=== PATIENT | male | born 1950 | race Caucasian/White ===

== ENCOUNTER → 2017-05-04 | Outpatient (CLI) | payer OTHER, BC ==
[~2017-05-04] MED LIST: AMOX1TAB43 PO; ASCO100061 PO; ASPEC81 PO; ASPI1TAB2 PO; B-COTAB18 PO; CEFA500C2 PO; CLIN150C PO; CLIN1CAP51 PO; CLOP1TAB5 PO; COEN1CAP17 PO; FURO40TA3 PO; GLIP-199 PO; LISI2.5T5 PO; LOSA1TAB PO; METO25TA56 PO; NITR0.4S UT; NTRGSL/4 UT; SPIR25TA PO; SULF-183 PO
== END | disposition home or self-care (01) ==
LOC: C.LABSPEC 16:52
PROVIDERS: ATTEND Podiatrist Foot & Ankle Surgery
DX: L97.519 Non-pressure chronic ulcer of other part of right foot with unspecified severity (principal)

== ENCOUNTER 2017-07-20 10:47 | Inpatient (IN) | payer OTHER, BC ==
[~2017-07-20] VITALS: Ht 172.7 cm; Wt 82.8 kg
[~2017-07-20 10:47] MED LIST changes: -AMOX1TAB43 PO; -ASCO100061 PO; -ASPEC81 PO; -B-COTAB18 PO; -CEFA500C2 PO; -CLIN150C PO; -CLIN1CAP51 PO; -COEN1CAP17 PO; -LOSA1TAB PO; -NITR0.4S UT; -NTRGSL/4 UT
[2017-07-20] MEDS ORDERED: SODIUM CHLORIDE 0.9% 500ML 500 ML IV STA (11:04)
[2017-07-20] MEDS ORDERED: FAMOTIDINE IV INJ 40 MG in DEXTROSE 5% 100ML 100 ML IV STA (11:04)
[2017-07-20] MEDS ORDERED: AMOX1TAB43 PO (11:22)
[2017-07-20] MEDS ORDERED: ONDANSETRON INJ 2 MG/ML 2 ML VIAL ONE (11:28)
[2017-07-20] MEDS ORDERED: ONDANSETRON INJ 2 MG/ML 2 ML VIAL IV STA (11:36)
[2017-07-20 11:43] LABS: VEN BLD GAS O2 SATURATION 77.7 %; VEN BLOOD GAS BASE EXCESS 0.5 mEq/L
[2017-07-20] MEDS ORDERED: SODIUM CHLORIDE 0.9% 1000ML 1,000 ML IV STA (11:57)
[2017-07-20 12:02] LABS: MEAN CORPUSCULAR HGB CONC 35.1 g/dl (32-36)
[2017-07-20] MEDS ORDERED: NovoLIN-R INSULIN PER UNIT CHARGE SC STA (12:08)
[2017-07-20 12:14] LABS: HEMATOCRIT 48.4 % (42-52); MEAN CORPUSCULAR HEMOGLOBIN 30.9 pg (25-34); WHITE BLOOD COUNT 23.25 K/uL (4.8-10.8)
[2017-07-20 12:19] LABS: MEAN PLATELET VOLUME 12.1 fL (7.4-10.4); PLATELET COUNT 171 K/uL (130-400)
[2017-07-20] MEDS ORDERED: VANCOMYCIN INJ 1,500 MG in SODIUM CHLORIDE 0.9% 500ML 500 ML IV SCH (12:20)
[2017-07-20] MEDS ORDERED: METRONIDAZOLE 500MG / 100ML NSS IV STA (12:20)
[2017-07-20] MEDS ORDERED: CEFEPIME IV 1,000 MG in DEXTROSE 5% 100ML 100 ML IV STA (12:20)
[2017-07-20] MEDS ORDERED: VANCOMYCIN INJ 1,500 MG in SODIUM CHLORIDE 0.9% 250ML 250 ML IV STA (12:20)
[2017-07-20 12:23] LABS: POTASSIUM 4.6 mmol/L (3.5-5.1)
[2017-07-20 12:30] LABS: BETA-HYDROXYBUTYRATE 3.82 mg/dL (0.2-2.81)
[2017-07-20 12:32] LABS: CREATININE 1.6 mg/dl (0.60-1.40)
[2017-07-20 12:33] LABS: CALCIUM 9.3 mg/dl (8.5-10.1)
[2017-07-20 12:46] LABS: BASO % 0.1 %; BASO ABS # 0.02 K/uL (0-0.2); COMPLETE YES; EOS % 0.5 %; IG% 0.5 %; LYMPH % 7.8 %; LYMPH ABS # 1.82 K/uL (1.2-3.4); MONO % 6.4 %; NEUT % 84.7 %; PLT ESTIMATE NORMAL
[2017-07-20 13:33] LABS: URINE APPEARANCE CLEAR (CLEAR); URINE BILIRUBIN NEG (NEG); URINE COLOR YELLOW; URINE NITRITE NEG (NEG); URINE SPECIFIC GRAVITY 1.024 (1.000-1.030); UROBILINOGEN NEG (NEG); ZZUR CULT IF INDIC CLEAN CATCH NO
[2017-07-20 13:41] LABS: MANUAL MICROSCOPIC REQUIRED? NO; REVIEW REQ? NO
[2017-07-20] MEDS ORDERED: ASPIRIN 324 MG CHEW PO STA (13:43)
--- NOTE | 2017-07-20 13:46 | DIAGNOSTIC IMAGING REPORT ---
CHEST ONE VIEW PORTABLE CLINICAL HISTORY: Chest pain. Allergic reaction. COMPARISON STUDY: 06/02/2015 FINDINGS: There are postsurgical changes of midline sternotomy. The heart is mildly enlarged. There is no failure. There is no focal pulmonary consolidation. There are no pleural effusions.[ IMPRESSION: No active disease in the chest. Electronically signed by: Valentin Werner M.D. 07/20/2017 1:45 PM Dictated Date/Time: 07/20/2017 1:44 PM
--- NOTE | 2017-07-20 14:07 | EMERGENCY ROOM VISIT NOTE ---
History Report prepared by Farrah: Alonzo Jack Under the Supervision of: Dr. Jorge Tomas M.D. First contact with patient: 10:48 Stated Complaint: ALLERGIC REACTION History of Present Illness The patient is a 67 year old white male with a past medical history of HTN, CHF , diabetes, CABG who presents to the ED by EMS with a cc of a persistent allergic reaction beginning three hours ago. Positive lip swelling, vomiting, dizziness, and weakness. Negative LOC, leg swelling, nausea, SOB, or chest pain. Symptoms began after taking Amoxicillin for a right toe infection. Took Amoxicillin four hours ago. Has had similar reaction to Amoxicillin once in the past. Had some colored drainage from the right fifth toe yesterday. Source of History: patient Onset: three hours ago Quality: other (allergic reaction) Timing: other (persistent) Associated Symptoms: + vomiting, + weakness, No LOC, No chest pain, No SOB, No nausea Note: Positive: dizziness and lip swelling. Negative: Leg swelling. Review of Systems See HPI for pertinent positives and negatives. A total of ten systems were reviewed and were otherwise negative. Past Medical & Surgical Medical Problems: (1) Atrial Fibrillation (2) CHF (congestive heart failure) (3) Diab [place] Wo Compl, Type Ii Or Unspec Type, Not Uncntrld (4) Hyperlipidemia Nec/Nos (5) Hypertension Nos (6) Hypotensive shock (7) Old Myocardial Infarct Surgical Problems: (1) H/O heart bypass surgery Family History FH ischemic heart disease Social History Smoking Status: Former Smoker Alcohol Use: none Drug Use: none Marital Status: in relationship Housing Status: lives with family Occupation Status: employed Current/Historical Medications Scheduled Amoxicillin & Pot Clavulanate (Amoxicillin/Clavulanate P), 1 TAB PO BID Furosemide (Lasix), 1 TAB PO DAILY Glipizide (Glipizide Er), 1 TAB PO BID Lisinopril (Lisinopril), 1 TAB PO DAILY Metoprolol Tartrate (Lopressor) (Lopressor), 25 MG PO BID Allergies Coded Allergies: Amoxicillin (Verified Allergy, Severe, hives swelling redness lip swelling , 07/20/17) Iodinated Diagnostic Agents (Verified Allergy, Intermediate, HIVES, 07/20/17 ) Prednisone (Unverified Allergy, Intermediate, SHORTNESS OF BREATH, 07/20/17) as per patient Physical Exam Vital Signs Date Time Temp Pulse Resp B/P (MAP) Pulse Ox O2 Delivery O2 Flow Rate FiO2 07/20/17 15:31 37.2 76 20 138/73 97 Room Air 07/20/17 15:27 78 21 96 07/20/17 15:01 158/82 07/20/17 14:57 83 24 07/20/17 14:35 161/85 07/20/17 14:32 242/136 07/20/17 14:27 86 17 07/20/17 14:12 97 Room Air 07/20/17 13:52 78 10 07/20/17 13:31 185/90 07/20/17 13:22 72 17 07/20/17 13:21 36.8 07/20/17 13:18 78 07/20/17 13:17 75 23 07/20/17 13:01 169/77 07/20/17 12:55 177/80 07/20/17 12:47 92 21 07/20/17 12:40 149/86 07/20/17 12:17 73 8 07/20/17 12:16 172/86 07/20/17 11:47 75 15 07/20/17 11:41 150/76 07/20/17 11:40 34.8 76 20 150/76 97 Room Air 07/20/17 11:17 77 24 07/20/17 10:55 76 07/20/17 10:50 98 Room Air 07/20/17 10:50 76 18 131/73 99 Room Air 07/20/17 10:48 131/73 Physical Exam GENERAL: Awake, alert, well-appearing, NAD HENT: Normocephalic, atraumatic. Posterior oropharynx clear. No edema. Non- stridulous. EYES: Normal conjunctiva. Sclera non-icteric. NECK: Supple. No nuchal rigidity. FROM. RESPIRATORY: CTAB, no rhonchi, wheezing, crackles CARDIAC: RRR, no MRG ABDOMEN: Soft, NTND, BS+ MSK: No chest wall TTP, no LE edema. Four digits on the right foot, missing the third phalanx. Fifth toe has a dorsal warty appearance. Mild erythema that does not extend beyond the toe. No fluctuance, but mild induration. NEURO: GCS 15, CN 2-12 intact, moves all 4s on command SKIN: No jaundice noted. Blanched erythema over the back. No urticaria noted. Medical Decision & Procedures ER Provider Diagnostic Interpretation: X-ray: Per my interpretation, radiologist review. CHEST ONE VIEW PORTABLE FINDINGS: There are postsurgical changes of midline sternotomy. The heart is mildly enlarged. There is no failure. There is no focal pulmonary consolidation. There are no pleural effusions.[ IMPRESSION: No active disease in the chest. Electronically signed by: Valentin Werner M.D. Laboratory Results 07/20/17 11:17 Red Blood Count 5.50, Mean Corpuscular Volume 88.0, Mean Corpuscular Hemoglobin 30.9, Mean Corpuscular Hemoglobin Concent 35.1, Mean Platelet Volume 12.1, Neutrophils (%) (Auto) 84.7, Lymphocytes (%) (Auto) 7.8, Monocytes (%) (Auto) 6.4, Eosinophils (%) (Auto) 0.5, Basophils (%) (Auto) 0.1, Neutrophils # (Auto) 19.70, Lymphocytes # (Auto) 1.82, Monocytes # (Auto) 1.48, Eosinophils # (Auto) 0.12, Basophils # (Auto) 0.02 07/20/17 11:17 Test 07/20/17 11:17 07/20/17 11:38 07/20/17 12:12 07/20/17 13:05 White Blood Count 23.25 K/uL (4.8-10.8) Red Blood Count 5.50 M/uL (4.7-6.1) Hemoglobin 17.0 g/dL (14.0-18.0) Hematocrit 48.4 % (42-52) Mean Corpuscular Volume 88.0 fL (80-100) Mean Corpuscular Hemoglobin 30.9 pg (25-34) Mean Corpuscular Hemoglobin Concent 35.1 g/dl (32-36) Platelet Count 171 K/uL (130-400) Mean Platelet Volume 12.1 fL (7.4-10.4) Neutrophils (%) (Auto) 84.7 % Lymphocytes (%) (Auto) 7.8 % Monocytes (%) (Auto) 6.4 % Eosinophils (%) (Auto) 0.5 % Basophils (%) (Auto) 0.1 % Neutrophils # (Auto) 19.70 K/uL (1.4-6.5) Lymphocytes # (Auto) 1.82 K/uL (1.2-3.4) Monocytes # (Auto) 1.48 K/uL (0.11-0.59) Eosinophils # (Auto) 0.12 K/uL (0-0.5) Basophils # (Auto) 0.02 K/uL (0-0.2) RDW Standard Deviation 39.8 fL (36.4-46.3) RDW Coefficient of Variation 12.4 % (11.5-14.5) Immature Granulocyte % (Auto) 0.5 % Immature Granulocyte # (Auto) 0.11 K/uL (0.00-0.02) Platelet Estimate NORMAL Red Blood Cell Morphology Unremarkable Prothrombin Time 10.8 SECONDS (9.0-12.0) Prothromb Time International Ratio 1.0 (0.9-1.1) Venous Blood pH 7.39 (7.36-7.41) Venous Blood Partial Pressure CO2 43 mmHg (38.0-50.0) Venous Blood Partial Pressure O2 44 mmHg Venous Blood HCO3 26 mmol/L Venous Blood Oxygen Saturation 77.7 % Venous Blood Base Excess 0.5 mEq/L Anion Gap 8.0 mmol/L (3-11) Est Creatinine Clear Calc Drug Dose 47.6 ml/min Estimated GFR () 51.3 Estimated GFR (Non- 44.2 BUN/Creatinine Ratio 17.0 (10-20) Calcium Level 9.3 mg/dl (8.5-10.1) Total Bilirubin 0.5 mg/dl (0.2-1) Direct Bilirubin 0.2 mg/dl (0-0.2) Aspartate Amino Transf (AST/SGOT) 16 U/L (15-37) Alanine Aminotransferase (ALT/SGPT) 24 U/L (12-78) Alkaline Phosphatase 127 U/L (45-117) Troponin I 0.136 ng/ml (0-0.045) Total Protein 7.3 gm/dl (6.4-8.2) Albumin 3.5 gm/dl (3.4-5.0) Lipase 231 U/L (73-393) Beta-Hydroxybutyric Acid 3.82 mg/dL (0.2-2.81) Bedside Lactic Acid Venous 3.12 mmol/L (0.90-1.70) Bedside Troponin I 0.070 ng/ml (0-0.045) Urine Color YELLOW Urine Appearance CLEAR (CLEAR) Urine pH 5.0 (4.5-7.5) Urine Specific Palms 1.024 (1.000-1.030) Urine Protein NEG (NEG) Urine Glucose (UA) 3+ (NEG) Urine Ketones NEG (NEG) Urine Occult Blood NEG (NEG) Urine Nitrite NEG (NEG) Urine Bilirubin NEG (NEG) Urine Urobilinogen NEG (NEG) Urine Leukocyte Esterase NEG (NEG) Urine WBC (Auto) 1-5 /hpf (0-5) Urine RBC (Auto) 0-4 /hpf (0-4) Urine Hyaline Casts (Auto) 5-10 /lpf (0-5) Urine Epithelial Cells (Auto) 5-10 /lpf (0-5) Urine Bacteria (Auto) NEG (NEG) Influenza Type A Antigen Neg for Influ A (NEG) Influenza Type B Antigen Neg for Influ B (NEG) Test 07/20/17 14:46 Laboratory results reviewed by me Medications Administered Medications (Trade) Dose Ordered Sig/[place] Route Start Time Stop Time Status Last Admin Dose Admin Sodium Chloride 500 ml @ 500 mls/hr Q1H STAT IV 07/20/17 11:04 07/20/17 12:03 DC 07/20/17 11:44 500 MLS/HR Famotidine 40 mg/ Dextrose 104 ml @ 200 mls/hr ONE STAT IV 07/20/17 11:04 07/20/17 11:35 DC 07/20/17 11:44 200 MLS/HR Ondansetron HCl (Zofran Inj) 4 mg STK-MED ONCE .ROUTE 07/20/17 11:28 07/20/17 11:29 DC 07/20/17 11:43 4 MG Sodium Chloride 1,000 ml @ 999 mls/hr Q1H1M STAT IV 07/20/17 11:57 07/20/17 12:57 DC 07/20/17 11:57 999 MLS/HR Insulin Human Regular (novoLIN-R U-100 PER UNIT) 5 units NOW STAT SC 07/20/17 12:08 07/20/17 12:09 DC 07/20/17 12:14 5 UNITS Cefepime HCl 1000 mg/Dextrose 111.3 ml @ 200 mls/hr ONE STAT IV 07/20/17 12:20 07/20/17 12:53 DC 07/20/17 12:57 200 MLS/HR Metronidazole (Flagyl / Nss) 500 mg NOW STAT IV 07/20/17 12:20 07/20/17 12:23 DC 07/20/17 12:57 500 MG Vancomycin HCl 1500 mg/Sodium Chloride 530 ml @ 200 mls/hr TODAY@1220 IV 07/20/17 12:20 07/20/17 20:00 07/20/17 13:17 200 MLS/HR Aspirin (Aspirin Supp) 300 mg ONE STAT WA 07/20/17 15:34 07/20/17 15:35 DC 07/20/17 15:49 300 MG ECG Indication: weakness Rate (beats per minute): 79 Rhythm: normal sinus Findings: ST depression (leads V4-V6, 1 and AVL. ), other (Normal axis. LAD. ) Change: no significant change (from previous) ED Course 1055: The patient was evaluated in room C10. A complete history and physical exam was performed. 1104: Ordered Famotidine 40 mg/Dextrose 104 mL @ 200 mL/hr IV, Sodium Chloride 500 ml @ 500 mls/hr IV. 1136: Ordered Zofran Inj 4 mg IV. 1157: Ordered Sodium Chloride 1000 ml @ 999 mls/hr IV. 1208: Ordered Novolin-R U-100 per unit 530 mL @ 200 mL/hr IV, Flagyl / Sodium Chloride 500 mg IV, Cefepime HCl 1000 mg/Dextrose 111.3 mL @ 200 mL/hr IV. 1330: I reassessed the patient and performed a full body skin exam. No skin manifestations appreciated. The patient denies any chest pain or shortness of breath. 1343: Ordered Aspirin Chew 324 mg PO. 1348: Upon reexamination, the patient was resting comfortably. I discussed the test results and treatment plan with him. The patient will be evaluated for further management. Medical Decision The patient is a 67 year old white male with a past medical history of HTN, CHF , diabetes, CABG who presents to the ED by EMS with a cc of an allergic reaction beginning three hours ago. Differential diagnosis: Etiologies such as allergic reaction, anaphylaxis, urticaria, Meadows-Bladimir syndrome, toxic epidermal necrolysis, erythema multiforme, cellulitis, as well as others were entertained. Patient was seen and evaluated at the bedside. Upon further reassessment patient did have a temperature of 93 with an elevated lactate of 3. Patient thus had blood cultures and urine cultures. Patient also had a chest x-ray and a urine added. Patient had been given famotidine in addition to the Benadryl and Solu-Medrol from a possible allergic reaction. Patient did have a full skin exam show any other signs of infection patient did not have any evidence of scrotal abscess cellulitis or Ajay's gangrene. Patient's gas was fairly unremarkable. Patient did have an elevated glucose greater than 440 was given subcutaneous insulin as well as IV fluids. Patient did have a white count of 23 and empiric abx were initiated. Patient did have a mildly positive troponin , but patient did not have any chest pain or shortness of breath. Patient's EKG did show chronic ischemic changes but nothing acute. Patient did have mild DANIEL. I spoke with the cardiology service who stated, may trend enzymes, but will not actively treat for ACS given the lack of symptoms. I inquired about have an MVR but he denies this. I spoke with the medicine team who agreed to admit the patient. Medication Reconcilliation Current Medication List: was personally reviewed by me Blood Pressure Screening Patient's blood pressure: Elevated blood pressure Blood pressure disposition: Referred to PCP Consults Time Called: 1337 Consulting Physician: Dr. Miller -Cardiology Returned Call: 1341 Discussed the patient's case. Dr. Miller does no feel that there is any need for acute intervention. Additional Consults: Time Called: 1340 Consulted Physician: Dr. [place] -[facility] [place] Returned Call: [phone] Additional Comments: Discussed the patient's case. The patient will be evaluated for further treatment and disposition. Impression Primary Impression: Elevated troponin Additional Impressions: Leukocytosis Sepsis DANIEL (acute kidney injury) Dehydration Critical Care I have personally spent greater than 54 minutes of critical care time in the direct management of this patient. This includes bedside care, interpretation of diagnostic studies, and testing, discussion with consultants, patient, and family members, and other required patient management activities. This [] minutes is in excess of all separately billable procedures. Scribe Attestation The scribe's documentation has been prepared under my direction and personally reviewed by me in its entirety. I confirm that the note above accurately reflects all work, treatment, procedures, and medical decision making performed by me. Departure Information Dispostion Being Evaluated By Hospitalist Referrals No Doctor, Assigned (PCP) Problem Qualifiers Additional Impressions: Leukocytosis Leukocytosis type: eosinophilia Qualified Codes: D72.1 - Eosinophilia Sepsis Sepsis type: sepsis due to unspecified organism Qualified Codes: A41.9 - Sepsis, unspecified organism
[2017-07-20 14:12] VITALS: O2SAT 97; Ht 172.7 cm; Wt 82.8 kg
[2017-07-20] MEDS ORDERED: HydrALAZINE HCL 20 MG/ML VIAL IV. PRN (15:00)
[2017-07-20] MEDS ORDERED: POLYETHYLENE (MIRALAX) 17 GM PACK PO PRN (15:00)
[2017-07-20] MEDS ORDERED: ONDANSETRON INJ 2 MG/ML 2 ML VIAL IV PRN (15:00)
[2017-07-20] MEDS ORDERED: ACETAMINOPHEN 325 MG TAB PO PRN (15:00)
--- NOTE | 2017-07-20 15:27 | History and Physical ---
History & Physical Date & Time of Service: Jul 20, 2017 at 14:56 Chief Complaint: Allergic Reaction Primary Care Physician: Aissatou Chin M.D. History of Present Illness Source: patient This is a 67 yo M with PMHx of hypertension, hyperlipidemia, paroxysmal a fib, ischemic cardiomyopathy with EF equal to 25-29% most recent echocardiogram being October 2015, DM II uncontrolled, hyperthyroidism, diabetic retinopathy, who presents to the ER today after acutely becoming weak with nausea and vomiting this morning around 9 AM. The patient reports last evening he ate dinner which was consistent of leftovers which were quite old and had some stomach discomfort. He then noticed his right pinky toe had a scab over top of the which he removed, and a "good" amount of pus came out of this lesion. The patient had possible gangrene of a toe approximately one year ago for which he was prescribed Augmentin for a 10 day course. He only took 5 days of this course, and initially had some hives but reports "working through it"; therefore had leftover antibiotic in his house. This morning, he took 1 tablet of Augmentin 875 mg to prevent possible toe infection along with other morning meds. At approximately 9 AM, he noticed increased nausea had multiple episodes of vomiting clear bilious liquid while sitting on his front porch. He became acutely weak and felt as if he was going to pass out. He denies any coffee- ground emesis or red streaking of vomiting at that time. EMS was called by a man working on a new barn nearby his home. Of note the patient takes only metoprolol 25 mg BID, lisinopril 2.5 mg daily, and furosemide 40 mg daily. He has not taken Plavix or baby aspirin for at least one year, despite recommendations in Dr. Miller's notes. Here in the ER the patient was found to have a lactic acid of 3.12, elevated WBC of 23K, elevated troponin=0.136, and glucose >400 with ketones of 3.82. BCx have been sent. CXr appears clear. He is s/p 1.5L bolus of NSS. Pt was initially hypothermic and has a bear hugger in place. Past Medical/Surgical History Medical Problems: (1) Atrial Fibrillation Status: Resolved (3) Diab [place] Compl, Type Ii Or Unspec Type, Not Uncntrld Status: Chronic (4) Hyperlipidemia Nec/Nos Status: Chronic (5) Hypertension Nos Status: Chronic (6) Old Myocardial Infarct Status: Resolved Hyperthyroidism Diabetic Retinopathy Ischemic Cardiomyopathy Severe mitral regurg Surgical Problems: (1) H/O heart bypass surgery Status: Resolved Bladder surgery Tonsillectomy Family History FH ischemic heart disease Social History Smoking Status: Former Smoker Alcohol Use: none Drug Use: none Marital Status: in relationship Housing status: lives alone Occupational Status: employed Immunizations History of Influenza Vaccine: No History of Tetanus Vaccine?: No History of Pneumococcal: No History of Hepatitis B Vaccine: No Multi-Drug Resistant Organisms History of MDRO: No Allergies Coded Allergies: Amoxicillin (Verified Allergy, Severe, hives swelling redness lip swelling , 07/20/17) Iodinated Diagnostic Agents (Verified Allergy, Intermediate, HIVES, 07/20/17 ) Prednisone (Unverified Allergy, Intermediate, SHORTNESS OF BREATH, 07/20/17) as per patient Home Medications Scheduled Amoxicillin & Pot Clavulanate (Amoxicillin/Clavulanate P), 1 TAB PO BID Furosemide (Lasix), 1 TAB PO DAILY Glipizide (Glipizide Er), 1 TAB PO BID Lisinopril (Lisinopril), 1 TAB PO DAILY Metoprolol Tartrate (Lopressor) (Lopressor), 25 MG PO BID Review of Systems Constitutional: No fever, No chills, No sweats, No fatigue Eyes: No redness, No discharge, No diplopia ENT: No trouble swallowing Respiratory: No cough, No shortness of breath, No dyspnea on exertion Cardiovascular: No chest pain, No edema, No palpitations Abdomen: + pain, + nausea, + vomiting (multiple episodes, last with bright red blood), + diarrhea (yesterday ) Musculoskeletal: No joint pain, No swelling, No calf pain Neurologic: No numbness/tingling Endocrine: No fatigue Integumentary: No rash, No itch Physical Exam Vital Signs Date Time Temp Pulse Resp B/P (MAP) Pulse Ox O2 Delivery O2 Flow Rate FiO2 07/20/17 14:12 97 Room Air 07/20/17 13:52 78 10 07/20/17 13:31 185/90 07/20/17 13:22 72 17 07/20/17 13:21 36.8 07/20/17 13:18 78 07/20/17 13:17 75 23 07/20/17 13:01 169/77 07/20/17 12:55 177/80 07/20/17 12:47 92 21 07/20/17 12:40 149/86 07/20/17 12:17 73 8 07/20/17 12:16 172/86 07/20/17 11:47 75 15 07/20/17 11:41 150/76 07/20/17 11:40 34.8 76 20 150/76 97 Room Air 07/20/17 11:17 77 24 07/20/17 10:55 76 07/20/17 10:50 98 Room Air 07/20/17 10:50 76 18 131/73 99 Room Air 07/20/17 10:48 131/73 General Appearance: WD/WN, no apparent distress, + obese Head: normocephalic, atraumatic Eyes: PERRL, EOMI ENT: hearing grossly normal, pharynx normal Neck: supple, no JVD Respiratory/Chest: lungs clear, no respiratory distress, no accessory muscle use Cardiovascular: regular rate, rhythm, + systolic murmur (LSB 2nd ICS) Abdomen/GI: normal bowel sounds, non tender, soft Back: normal inspection Extremities/Musculoskelatal: + pertinent finding (R pinky toe without edema, very minimal erythema over DIP. Nonfluctuant. No warmth) Neurologic/Psych: alert, normal mood/affect, oriented x 3 Skin: normal color, warm/dry Diagnostics Laboratory Results Results Past 24 Hours Test 07/20/17 11:17 07/20/17 11:38 07/20/17 12:12 07/20/17 13:05 Range/Units White Blood Count 23.25 4.8-10.8 K/uL Red Blood Count 5.50 4.7-6.1 M/uL Hemoglobin 17.0 14.0-18.0 g/dL Hematocrit 48.4 42-52 % Mean Corpuscular Volume 88.0 80-100 fL Mean Corpuscular Hemoglobin 30.9 25-34 pg Mean Corpuscular Hemoglobin Concent 35.1 32-36 g/dl Platelet Count 171 130-400 K/uL Mean Platelet Volume 12.1 7.4-10.4 fL Neutrophils (%) (Auto) 84.7 % Lymphocytes (%) (Auto) 7.8 % Monocytes (%) (Auto) 6.4 % Eosinophils (%) (Auto) 0.5 % Basophils (%) (Auto) 0.1 % Neutrophils # (Auto) 19.70 1.4-6.5 K/uL Lymphocytes # (Auto) 1.82 1.2-3.4 K/uL Monocytes # (Auto) 1.48 0.11-0.59 K/uL Eosinophils # (Auto) 0.12 0-0.5 K/uL Basophils # (Auto) 0.02 0-0.2 K/uL RDW Standard Deviation 39.8 36.4-46.3 fL RDW Coefficient of Variation 12.4 11.5-14.5 % Immature Granulocyte % (Auto) 0.5 % Immature Granulocyte # (Auto) 0.11 0.00-0.02 K/uL Platelet Estimate NORMAL Red Blood Cell Morphology Unremarkable Venous Blood pH 7.39 7.36-7.41 Venous Blood Partial Pressure CO2 43 38.0-50.0 mmHg Venous Blood Partial Pressure O2 44 mmHg Venous Blood HCO3 26 mmol/L Venous Blood Oxygen Saturation 77.7 % Venous Blood Base Excess 0.5 mEq/L Sodium Level 135 136-145 mmol/L Potassium Level 4.6 3.5-5.1 mmol/L Chloride Level 100 98-107 mmol/L Carbon Dioxide Level 27 21-32 mmol/L Anion Gap 8.0 3-11 mmol/L Blood Urea Nitrogen 27 7-18 mg/dl Creatinine 1.60 0.60-1.40 mg/dl Est Creatinine Clear Calc Drug Dose 47.6 ml/min Estimated GFR () 51.3 Estimated GFR (Non- 44.2 BUN/Creatinine Ratio 17.0 10-20 Random Glucose 443 70-99 mg/dl Calcium Level 9.3 8.5-10.1 mg/dl Total Bilirubin 0.5 0.2-1 mg/dl Direct Bilirubin 0.2 0-0.2 mg/dl Aspartate Amino Transf (AST/SGOT) 16 15-37 U/L Alanine Aminotransferase (ALT/SGPT) 24 12-78 U/L Alkaline Phosphatase 127 45-117 U/L Troponin I 0.136 0-0.045 ng/ml Total Protein 7.3 6.4-8.2 gm/dl Albumin 3.5 3.4-5.0 gm/dl Lipase 231 73-393 U/L Beta-Hydroxybutyric Acid 3.82 0.2-2.81 mg/dL Bedside Lactic Acid Venous 3.12 0.90-1.70 mmol/L Bedside Troponin I 0.070 0-0.045 ng/ml Urine Color YELLOW Urine Appearance CLEAR CLEAR Urine pH 5.0 4.5-7.5 Urine Specific [place] 1.024 1.000-1.030 Urine Protein NEG NEG Urine Glucose (UA) 3+ NEG Urine Ketones NEG NEG Urine Occult Blood NEG NEG Urine Nitrite NEG NEG Urine Bilirubin NEG NEG Urine Urobilinogen NEG NEG Urine Leukocyte Esterase NEG NEG Urine WBC (Auto) 1-5 0-5 /hpf Urine RBC (Auto) 0-4 0-4 /hpf Urine Hyaline Casts (Auto) 5-10 0-5 /lpf Urine Epithelial Cells (Auto) 5-10 0-5 /lpf Urine Bacteria (Auto) NEG NEG Influenza Type A Antigen Neg for Influ A NEG Influenza Type B Antigen Neg for Influ B NEG Test 07/20/17 14:46 Range/Units Microbiology Results 07/20/17 Blood Culture, Received Pending 07/20/17 Blood Culture, Received Pending Diagnostic Radiology CHEST ONE VIEW PORTABLE CLINICAL HISTORY: Chest pain. Allergic reaction. COMPARISON STUDY: 06/02/2015 FINDINGS: There are postsurgical changes of midline sternotomy. The heart is mildly enlarged. There is no failure. There is no focal pulmonary consolidation. There are no pleural effusions.[ IMPRESSION: No active disease in the chest. Electronically signed by: Valentin Werner M.D. 07/20/2017 1:45 PM Dictated Date/Time: 07/20/2017 1:44 PM The status of this report is Signed. CXR normal EKG Vent. rate 79 BPM UT interval 154 ms QRS duration 106 ms QT/QTc 396/454 ms P-R-T axes 53 -44 129 Normal sinus rhythm Left axis deviation Septal infarct (cited on or before 12-JUN-2016) ST & T wave abnormality, consider lateral ischemia Abnormal ECG When compared with ECG of 12-JUN-2016 08:16, No significant change was found Confirmed by SANTIAGO STERN ([id number]) on 07/20/2017 1:58:44 PM Impression Assessment and Plan This is a 67 yo M with PMHx of hypertension, hyperlipidemia, paroxysmal a fib, ischemic cardiomyopathy with EF equal to 25-29% most recent echocardiogram being October 2015, DM II uncontrolled, hyperthyroidism, diabetic retinopathy, who presents to the ER today after acutely becoming weak with nausea and vomiting this morning around 9 AM. Hypotensive shock secondary to allergic reaction with possible NSTEMI Old myocardial infarct Ischemic Cardiomyopathy Severe Mitral Regurg - Admit to tele - Allergic reaction likely to Augmentin as he took this in the past and developed adverse affects and had hives. No anaphylaxis was observed. - initial troponin elevated at 0.136, will trend cardiac biomarkers 2 more sets - EKG does not show remarkable changes from previous EKG in May - Restart on aspirin 81 mg every morning, given ASA 325 suppository in the ED - He has not been on Plavix with hx of CABG and multiple intervention - Cardiology consulted, patient follows with Dr. Miller as an outpatient. - Check a 2-D echocardiogram, last EF was 25% in October 2015 - IVFs @ 75mL/hr x 1 day Lactic acidosis - Question if this is infectious source from gastroenteritis versus other etiology. Patient's right toe does not appear to be source of infection without erythema or edema, no purulent fluid expressed. Abdominal nontender, no pain. - Rechecking lactic acid now- Maintain fluids as above - Blood cultures in process - UA looks ok, Ucx as indicated - Was started on cefepime, flagyl and vanc in the ED - likely for possible GI source and Vanc for potential soft tissue infection. ? Gastroenteritis - Pt reports eating old leftovers last evening causing him to have some diarrhea , this may be making him more nauseous and causing him to vomit if not from allergic rxn. - He was administered NSS total of 1.5 mL bolus in the ED, will need him on maintenance fluids - cefepime/flagyl given - at this time the patient looks well, no fever, so will assess response overnight, watch morning CBC and determine if abx need continued tomorrow. DM II Diabetic retinopathy - Poorly controlled - A1C recheck in the morning - Pt ran out of glipizide 1 week ago, normal home regimen includes glipizide 10 mg twice a day - cover with ISS with accuchecks achs Hyperlipidemia - Checking lipid panel, not on statin Paroxysmal A. fib - Continue metoprolol 25 mg BID for rate control DVT ppx: teds, scds, heparin 5,000 U subq CODE STATUS: Full code Disposition: Patient from home, lives alone, no needs anticipated Attending Addendum: I have physically seen and examined this patient, have directed the physician assistants medical activities, and agree with the H&P as noted above with the following exceptions as noted. The patient is awake, alert and oriented 3, well-developed and well-nourished , normocephalic and atraumatic, lying in bed and in no acute distress. HEENT--PERRL, EOMI, mucous membranes and oropharynx normal. Neck--supple, no JVD or bruits, thyroid normal, trachea midline, no adenopathy. Heart--normal S1 and S2. Systolic murmur. No rubs or gallops. Lungs--clear bilaterally with good air movement, no respiratory distress, no accessory muscle use. Abdomen--normal bowel sounds and soft, nontender and nondistended, no hernias or masses, no organomegaly. Extremities--no cyanosis, clubbing or edema. There are good distal pulses b/l. Right fifth toe with callus. Dermatologic--normal skin turgor, normal color, warm and dry, no abnormal lymph nodes, no rash. Neurologic--cranial nerves II through XII grossly intact, motor and sensory examination normal. Rheumatologic--normal range of motion, nontender, muscles and joints. Psychiatric--normal affect. Assessment and Plan: Likely anaphylactic reaction to Augmentin, leading to hypotension with presenting symptoms of acute weakness with nausea and vomiting. History of myocardial infarction/ischemic cardio myopathy/paroxysmal atrial fibrillation severe mitral regurgitation/troponin elevation of 0.136--The patient will be admitted to telemetry for serial cardiac enzymes, cardiac rhythm monitoring and a 2-D echocardiogram with Dopplers. Continue metoprolol tartrate 25 mg by mouth twice a day with hold parameters. Restart aspirin 81 mg by mouth every morning. Resumption of Plavix can be determined by Dr. Paul rouse assistant teacher, who will be consulted. Hold Lasix, and gently rehydrate with normal saline at 75 ML's per hour 24 hours. Diabetes mellitus-- Check hemoglobin A1c. Patient has been out of his glipizide for more than one week Place on Accu-Cheks before meals and at bedtime with NovoLog coverage per scale. Gastroenteritis secondary to food toxin/lactic acidosis-- Some of patient's symptoms may be related to inappropriate ingestion of old food in the refrigerator. The patient was advised to go through his refrigerator and discard old food. Do not see an indication for continued use of IV antibiotics of vancomycin, cefepime and Flagyl use in the ED. Level of Care Telemetry Advanced Directives Existing Living Will: Yes Existing Power of Class C Driver: Yes (SANDRO ) Resuscitation Status FULL RESUSCITATION VTE Prophylaxis VTE Risk Assessment Done? Y/N: Yes Risk Level: Low Given or contraindicated: Unfractionated heparin SQ, T.E.D. Stockings, SCD's Social Service Consult None Apply
[2017-07-20] MEDS ORDERED: GLUCOSE 10 TABS/TUBE PO PRN (15:30)
[2017-07-20] MEDS ORDERED: GLUCOSE 40% GEL 15 GM TUBE PO PRN (15:30)
[2017-07-20] MEDS ORDERED: GLUCAGON FOR INJ 1 MG VIAL SQ PRN (15:30)
[2017-07-20] MEDS ORDERED: DEXTROSE 50% 50 ML SYR IV PRN (15:30)
[2017-07-20] MEDS ORDERED: ASPIRIN 300 MG SUPP PR STA (15:34)
[2017-07-20 15:58] LABS: PROTHROMBIN TIME (PATIENT) 10.8 SECONDS (9.0-12.0)
[2017-07-20 17:00] VITALS: BP 135/79; PULSE 80; TEMP 36.5; O2SAT 98
[2017-07-20] MEDS: SODIUM CHLORIDE 0.9% 1000ML 1,000 ML IV SCH (18:17)
[2017-07-20] MEDS: INSULIN ASPART 100 UNITS/ML 3 ML PEN SC SCH ×2 (18:22→20:26)
[2017-07-20 19:15] VITALS: BP 151/77; PULSE 83; TEMP 37.1; O2SAT 95
[2017-07-20] MEDS ORDERED: HEPARIN 25,000 UNIT/500ML D5W 500 ML IV PRN (19:30)
[2017-07-20 19:42] LABS: PROTHROMBIN TIME (PATIENT) 10.7 SECONDS (9.0-12.0)
[2017-07-20 19:46] LABS: HEMATOCRIT 42.1 % (42-52); MEAN CELL VOLUME 88.3 fL (80-100); MEAN CORPUSCULAR HEMOGLOBIN 30.6 pg (25-34); MEAN CORPUSCULAR HGB CONC 34.7 g/dl (32-36); MEAN PLATELET VOLUME 11.7 fL (7.4-10.4); PLATELET COUNT 140 K/uL (130-400); RED BLOOD COUNT 4.77 M/uL (4.7-6.1); WHITE BLOOD COUNT 11.53 K/uL (4.8-10.8)
[2017-07-20 19:48] LABS: COMPLETE YES; IG% 0.2 %; LYMPH % 2.2 %; LYMPH ABS # 0.25 K/uL (1.2-3.4); MONO % 0.9 %; NEUT % 96.7 %
[2017-07-20] MEDS: NITROGLYCERIN OINT 2% 1GM PACKET EXT SCH (19:52)
[2017-07-20] MEDS: METOPROLOL TARTRATE 25 MG TAB PO SCH (19:54)
[2017-07-20 20:00] VITALS: O2SAT 95
[2017-07-20] MEDS ORDERED: HEPARIN SOD 5000 UNIT/0.5 ML CARP SQ SCH (22:00)
[2017-07-21] VITALS (7 sets, daily range): BP systolic 127–132; BP diastolic 65–67; PULSE 68–82; TEMP 36.6–37; O2SAT 95–96
[2017-07-21] MEDS: NITROGLYCERIN OINT 2% 1GM PACKET EXT SCH ×2 (01:11→08:48)
[2017-07-21 02:05] LABS: PARTIAL THROMBOPLASTIN RATIO 1.9
[2017-07-21] MEDS: SODIUM CHLORIDE 0.9% 1000ML 1,000 ML IV SCH (04:46)
[2017-07-21 06:17] LABS: BASO % 0.1 %; BASO ABS # 0.02 K/uL (0-0.2); COMPLETE YES; HEMATOCRIT 37.9 % (42-52); IG% 0.4 %; LYMPH % 6.9 %; LYMPH ABS # 1.16 K/uL (1.2-3.4); MEAN CELL VOLUME 86.1 fL (80-100); MEAN CORPUSCULAR HEMOGLOBIN 30.2 pg (25-34); MEAN CORPUSCULAR HGB CONC 35.1 g/dl (32-36); MEAN PLATELET VOLUME 11.7 fL (7.4-10.4); MONO % 7.1 %; NEUT % 85.5 %; PLATELET COUNT 135 K/uL (130-400)
[2017-07-21 06:38] LABS: PARTIAL THROMBOPLASTIN RATIO 2.2
[2017-07-21 07:07] LABS: BUN/CREATININE RATIO 21.9 (10-20); CALCIUM 8.4 mg/dl (8.5-10.1)
[2017-07-21 07:25] LABS: ESTIMATED AVERAGE GLUCOSE 194 mg/dl; HA1C FLAG Normal (Normal)
--- NOTE | 2017-07-21 08:23 | Hospitalist Progress Note ---
Hospitalist Progress Note Date of Service Jul 21, 2017. (Shaista Ambrose PA-C) Subjective Pt evaluation today including: conversation w/ patient, physical exam, chart review, lab review, review of studies Pain: None PO Intake: Good Voiding: no voiding problems The patient was seen and examined this morning. Pt reports doing well other than not getting any sleep overnight. Patient denies any type of chest pain, shortness of breath, palpitation, flutter. He denies any abdominal pain, cramping, loose bowels, nausea or vomiting. He is really hopeful to be able to go home today if possible. Patient is aware that Dr. Landa is going to come see him. Additional Comments: Constitutional: No fever, sweats or chills Eyes: No diplopia, no worsening or blurred vision ENT: normal hearing, no trouble swallowing Respiratory: No cough, sputum, dyspnea at rest or on exertion Cardiovascular: No chest pain, tightness or palpitations Abdomen: No pain, nausea, vomiting, diarrhea or constipation Musculoskeletal: No joint pain, calf pain, swelling Neurologic: No weakness, numbness/tingling, or balance problems Psychiatric: No anxiety or depression Skin: No rash or itch (Shaista Ambrose PA-C) Objective Vital Signs Date Time Temp Pulse Resp B/P (MAP) Pulse Ox O2 Delivery O2 Flow Rate FiO2 07/21/17 04:20 95 Room Air 07/21/17 03:50 36.8 82 18 132/67 (88) 96 Room Air 07/21/17 00:14 95 Room Air 07/21/17 00:00 37.0 80 20 129/65 (86) 96 Room Air 07/20/17 20:00 95 Room Air 07/20/17 19:15 37.1 83 18 151/77 (101) 95 Room Air 07/20/17 17:00 36.5 80 18 135/79 (97) 98 Room Air 07/20/17 16:24 76 20 138/73 97 07/20/17 15:31 37.2 76 20 138/73 97 Room Air 07/20/17 15:27 78 21 96 07/20/17 15:01 158/82 07/20/17 14:57 83 24 07/20/17 14:35 161/85 07/20/17 14:32 242/136 07/20/17 14:27 86 17 07/20/17 14:12 97 Room Air 07/20/17 13:52 78 10 07/20/17 13:31 185/90 07/20/17 13:22 72 17 07/20/17 13:21 36.8 07/20/17 13:18 78 07/20/17 13:17 75 23 07/20/17 13:01 169/77 07/20/17 12:55 177/80 07/20/17 12:47 92 21 07/20/17 12:40 149/86 07/20/17 12:17 73 8 07/20/17 12:16 172/86 07/20/17 11:47 75 15 07/20/17 11:41 150/76 07/20/17 11:40 34.8 76 20 150/76 97 Room Air 07/20/17 11:17 77 24 07/20/17 10:55 76 07/20/17 10:50 98 Room Air 07/20/17 10:50 76 18 131/73 99 Room Air 07/20/17 10:48 131/73 (Shaista Ambrose PA-C) Physical Exam Notes: General Appearance: WD/WN, no apparent distress Head: normocephalic, atraumatic Eyes: PERRL, EOMI ENT: hearing grossly normal, pharynx normal Neck: supple, no JVD Respiratory/Chest: lungs clear, no respiratory distress, no accessory muscle use Cardiovascular: regular rate, rhythm, + systolic murmur (LSB 2nd ICS) Abdomen/GI: normal bowel sounds, non tender, soft Back: normal inspection Extremities/Musculoskelatal: + pertinent finding (R pinky toe without edema, no erythema over DIP, Nonfluctuant. No warmth) Neurologic/Psych: alert, normal mood/affect, oriented x 3 Skin: normal color, warm/dry (Shaista Ambrose PA-C) Laboratory Results Last 24 Hours Test 07/20/17 11:17 07/20/17 11:38 07/20/17 12:12 07/20/17 13:05 White Blood Count 23.25 K/uL Red Blood Count 5.50 M/uL Hemoglobin 17.0 g/dL Hematocrit 48.4 % Mean Corpuscular Volume 88.0 fL Mean Corpuscular Hemoglobin 30.9 pg Mean Corpuscular Hemoglobin Concent 35.1 g/dl Platelet Count 171 K/uL Mean Platelet Volume 12.1 fL Neutrophils (%) (Auto) 84.7 % Lymphocytes (%) (Auto) 7.8 % Monocytes (%) (Auto) 6.4 % Eosinophils (%) (Auto) 0.5 % Basophils (%) (Auto) 0.1 % Neutrophils # (Auto) 19.70 K/uL Lymphocytes # (Auto) 1.82 K/uL Monocytes # (Auto) 1.48 K/uL Eosinophils # (Auto) 0.12 K/uL Basophils # (Auto) 0.02 K/uL RDW Standard Deviation 39.8 fL RDW Coefficient of Variation 12.4 % Immature Granulocyte % (Auto) 0.5 % Immature Granulocyte # (Auto) 0.11 K/uL Platelet Estimate NORMAL Red Blood Cell Morphology Unremarkable Prothrombin Time 10.8 SECONDS Prothromb Time International Ratio 1.0 Venous Blood pH 7.39 Venous Blood Partial Pressure CO2 43 mmHg Venous Blood Partial Pressure O2 44 mmHg Venous Blood HCO3 26 mmol/L Venous Blood Oxygen Saturation 77.7 % Venous Blood Base Excess 0.5 mEq/L Sodium Level 135 mmol/L Potassium Level 4.6 mmol/L Chloride Level 100 mmol/L Carbon Dioxide Level 27 mmol/L Anion Gap 8.0 mmol/L Blood Urea Nitrogen 27 mg/dl Creatinine 1.60 mg/dl Est Creatinine Clear Calc Drug Dose 47.6 ml/min Estimated GFR () 51.3 Estimated GFR (Non- 44.2 BUN/Creatinine Ratio 17.0 Random Glucose 443 mg/dl Calcium Level 9.3 mg/dl Total Bilirubin 0.5 mg/dl Direct Bilirubin 0.2 mg/dl Aspartate Amino Transf (AST/SGOT) 16 U/L Alanine Aminotransferase (ALT/SGPT) 24 U/L Alkaline Phosphatase 127 U/L Troponin I 0.136 ng/ml Total Protein 7.3 gm/dl Albumin 3.5 gm/dl Lipase 231 U/L Beta-Hydroxybutyric Acid 3.82 mg/dL Bedside Lactic Acid Venous 3.12 mmol/L Bedside Troponin I 0.070 ng/ml Urine Color YELLOW Urine Appearance CLEAR Urine pH 5.0 Urine Specific [place] 1.024 Urine Protein NEG Urine Glucose (UA) 3+ Urine Ketones NEG Urine Occult Blood NEG Urine Nitrite NEG Urine Bilirubin NEG Urine Urobilinogen NEG Urine Leukocyte Esterase NEG Urine WBC (Auto) 1-5 /hpf Urine RBC (Auto) 0-4 /hpf Urine Hyaline Casts (Auto) 5-10 /lpf Urine Epithelial Cells (Auto) 5-10 /lpf Urine Bacteria (Auto) NEG Influenza Type A Antigen Neg for Influ A Influenza Type B Antigen Neg for Influ B Test 07/20/17 13:52 07/20/17 17:02 07/20/17 17:47 07/20/17 19:22 Bedside Glucose 333 mg/dl 282 mg/dl Lactic Acid Level 3.4 mmol/L Creatine Kinase MB 15.0 ng/ml Creatine Kinase MB Ratio Troponin I 4.340 ng/ml White Blood Count 11.53 K/uL Red Blood Count 4.77 M/uL Hemoglobin 14.6 g/dL Hematocrit 42.1 % Mean Corpuscular Volume 88.3 fL Mean Corpuscular Hemoglobin 30.6 pg Mean Corpuscular Hemoglobin Concent 34.7 g/dl Platelet Count 140 K/uL Mean Platelet Volume 11.7 fL Neutrophils (%) (Auto) 96.7 % Lymphocytes (%) (Auto) 2.2 % Monocytes (%) (Auto) 0.9 % Eosinophils (%) (Auto) 0.0 % Basophils (%) (Auto) 0.0 % Neutrophils # (Auto) 11.16 K/uL Lymphocytes # (Auto) 0.25 K/uL Monocytes # (Auto) 0.10 K/uL Eosinophils # (Auto) 0.00 K/uL Basophils # (Auto) 0.00 K/uL RDW Standard Deviation 40.4 fL RDW Coefficient of Variation 12.6 % Immature Granulocyte % (Auto) 0.2 % Immature Granulocyte # (Auto) 0.02 K/uL Prothrombin Time 10.7 SECONDS Prothromb Time International Ratio 1.0 Activated Partial Thromboplast Time 25.9 SECONDS Partial Thromboplastin Ratio 1.0 Test 07/20/17 20:09 07/21/17 01:26 07/21/17 04:44 07/21/17 06:44 Bedside Glucose 436 mg/dl 164 mg/dl Activated Partial Thromboplast Time 49.4 SECONDS 57.4 SECONDS Partial Thromboplastin Ratio 1.9 2.2 Creatine Kinase MB 16.2 ng/ml Creatine Kinase MB Ratio Troponin I 5.190 ng/ml White Blood Count 16.80 K/uL Red Blood Count 4.40 M/uL Hemoglobin 13.3 g/dL Hematocrit 37.9 % Mean Corpuscular Volume 86.1 fL Mean Corpuscular Hemoglobin 30.2 pg Mean Corpuscular Hemoglobin Concent 35.1 g/dl Platelet Count 135 K/uL Mean Platelet Volume 11.7 fL Neutrophils (%) (Auto) 85.5 % Lymphocytes (%) (Auto) 6.9 % Monocytes (%) (Auto) 7.1 % Eosinophils (%) (Auto) 0.0 % Basophils (%) (Auto) 0.1 % Neutrophils # (Auto) 14.36 K/uL Lymphocytes # (Auto) 1.16 K/uL Monocytes # (Auto) 1.20 K/uL Eosinophils # (Auto) 0.00 K/uL Basophils # (Auto) 0.02 K/uL RDW Standard Deviation 40.3 fL RDW Coefficient of Variation 12.7 % Immature Granulocyte % (Auto) 0.4 % Immature Granulocyte # (Auto) 0.06 K/uL Sodium Level 139 mmol/L Potassium Level 4.0 mmol/L Chloride Level 106 mmol/L Carbon Dioxide Level 26 mmol/L Anion Gap 7.0 mmol/L Blood Urea Nitrogen 22 mg/dl Creatinine 1.00 mg/dl Est Creatinine Clear Calc Drug Dose 76.2 ml/min Estimated GFR () 90.5 Estimated GFR (Non- 78.1 BUN/Creatinine Ratio 21.9 Random Glucose 184 mg/dl Estimated Average Glucose 194 mg/dl Hemoglobin A1c 8.4 % Calcium Level 8.4 mg/dl Triglycerides Level 66 mg/dl Cholesterol Level 182 mg/dl HDL Cholesterol 45 mg/dl LDL Cholesterol, Calculated 124 mg/dl VLDL Cholesterol, Calculated 13 mg/dl Cholesterol/HDL Ratio 4.0 (Shaista Ambrose, PAJuddC) Assessment and Plan This is a 67 yo M with PMHx of hypertension, hyperlipidemia, paroxysmal a fib, ischemic cardiomyopathy with EF equal to 25-29% most recent echocardiogram being October 2015, DM II uncontrolled, hyperthyroidism, diabetic retinopathy, who presents to the ER today after acutely becoming weak with nausea and vomiting this morning around 9 AM. Hypotensive shock secondary to allergic reaction with possible NSTEMI Old myocardial infarct Ischemic Cardiomyopathy Diastolic and Systolic CHF Severe Mitral Regurg - Admit to tele - Allergic reaction likely to Augmentin as he took this in the past and developed adverse affects and had hives. No anaphylaxis was observed. - initial troponin elevated at 0.136, trended up to 5 and was placed on a heparin gtt overnight. - 4th troponin has dropped to 3.[address] Landa is ok with discharge with this result. - EKG does not show remarkable changes from previous EKG in May - new EKG this am showing new LBBB - Restart on aspirin 81 mg every morning - He has not been on Plavix with hx of CABG and multiple intervention - Cardiology consulted, patient follows with Dr. Miller as an outpatient. - 2-D echocardiogram 07/21: * -- Conclusions -- * Compared to previous study of 03/08/17: no cardiac change but now with presence of possible hepatic lesion. * Mildly dialted LV chamber size with normal wall thickness of the anterior and anterolateral gauthier, significant thinning of all other wall segements. * Moderately reduced LV systolic function, EF 30-35%. * There is a large size inferior, posterior, and septal myocardial infarction with severe hypokinesis to akinesis of the * segments. * Grade II diastolic dysfunction. * Moderate aortic valve sclerosis without stenosis. * Mild to moderate mitral regurgitation. * Moderate left atrial enlargement. * Medium sized area of echolucency either intrahepatic or immediately adjacent. Recommend CT of abdomen to further evaluate. - IVFs now off as pt is eating and drinking without difficulty. - Ordered liver U/S to assess hepatic lesion - await results Lactic acidosis - Question if this is infectious source from gastroenteritis versus other etiology. Patient's right toe does not appear to be source of infection without erythema or edema, no purulent fluid expressed. Abdominal nontender, no pain. - Rechecking lactic acid now- Maintain fluids as above - Blood cultures in process - UA looks clear, no culture. - Was started on cefepime, flagyl and vanc in the ED - likely for possible GI source and Vanc for potential soft tissue infection. No further antibiotics at this time. ? Gastroenteritis - Pt reports eating old leftovers last evening causing him to have some diarrhea , this may be making him more nauseous and causing him to vomit if not from allergic rxn. - He was administered NSS total of 1.5 mL bolus in the ED, off maintenance fluids at this time. - cefepime/flagyl given - at this time the patient looks well, no fever, so will assess response overnight - WBC decreased to 16K today DM II Diabetic retinopathy - Poorly controlled - A1C = 8.4 - Pt ran out of glipizide 1 week ago, normal home regimen includes glipizide 10 mg twice a day - will provide prescription if patient is discharged today - cover with ISS with accuchecks achs Hyperlipidemia - Checking lipid panel, not on statin - Cholesterol panel complete - total is 182. Paroxysmal A. fib - Continue metoprolol 25 mg BID for rate control DVT ppx: teds, scds, heparin 5,000 U subq CODE STATUS: Full code Disposition: Patient from home, lives alone, no needs anticipated (Shaista Ambrose, ONESIMO) Reviewed: Pt Seen/Exam by Me (Whit Taylor MD) History See my discharge summary Attending Addendum on the same date (Whit Taylor MD)
[2017-07-21] MEDS: METOPROLOL TARTRATE 25 MG TAB PO SCH (08:49)
[2017-07-21] MEDS: INSULIN ASPART 100 UNITS/ML 3 ML PEN SC SCH ×2 (08:52→12:31)
[2017-07-21] MEDS ORDERED: ASPIRIN 81 MG ECTAB PO SCH (09:00)
--- NOTE | 2017-07-21 09:01 | ECHOCARDIOGRAM REPORT ---
*NOTICE TO RECEIVING DEMOCRAT AGENCY This information is strictly Confidential and protected under [place] law. [place] law prohibits you from making any further disclosure of this information unless further disclosure is expressly permitted by the written consent of the person to whom it pertains or is authorized by law. A general authorization for the release of medical or other information is not sufficient for this purpose. Hospital accepts no responsibility if the information is made available to any other person, INCLUDING THE PATIENT. Interpretation Summary * Name: ANURAG VERDUGO Study Date: 07/21/2017 06:39 AM BP: 132/67 mmHg * Patient Location: C.2T\S\S229\S\1 HR: 87 * : 1950 (M/d/yyy) Gender: Male Height: 68 in * Age: 67 yrs Ethnicity: [place] Weight: 181 lb * Ordering Physician: Shaista Ambrose * Referring Physician: Self, Referred * Performed By: Polina Ruiz [facility] * * Reason For Study: ISCHEMIC CARDIOMYOPATHY * BSA: 2.0 m2 * -- Conclusions -- * Compared to previous study of 03/08/17: no cardiac change but now with presence of possible hepatic lesion. * Mildly dialted LV chamber size with normal wall thickness of the anterior and anterolateral gauthier, significant thinning of all other wall segements. * Moderately reduced LV systolic function, EF 30-35%. * There is a large size inferior, posterior, and septal myocardial infarction with severe hypokinesis to akinesis of the * segments. * Grade II diastolic dysfunction. * Moderate aortic valve sclerosis without stenosis. * Mild to moderate mitral regurgitation. * Moderate left atrial enlargement. * Medium sized area of echolucency either intrahepatic or immediately adjacent. Recommend CT of abdomen to further evaluate. Procedure Details * A complete two-dimensional transthoracic echocardiogram was performed (2D, M-mode, Doppler and color flow Doppler). Left Ventricle * The left ventricle is mildly dilated. * Normal wall thickness of the anterior and anterolateral gauthier, significant thinning of all other wall segements. * Left ventricular systolic function is moderately reduced. * Ejection Fraction = 30-35%. * There is a large size inferior, posterior, and septal myocardial infarction with severe hypokinesis to akinesis of the segments. Right Ventricle * The right ventricular cavity size is normal (basal dimension <4.2 cm in right ventricular apical 4-chamber view). * The right ventricular systolic function is normal as assessed by tricuspid annular plane systolic excursion (TAPSE) (normal >1.5 cm). Atria * The left atrium is moderately dilated. * Right atrial size is normal. * No ASD detected; PFO is not assessed. Mitral Valve * The mitral valve anatomy is normal. * There is no mitral valve stenosis. * There is mild to moderate mitral regurgitation. Tricuspid Valve * The tricuspid valve is normal in structure and function. Aortic Valve * The aortic valve is trileaflet. * Aortic valve sclerosis moderate, without significant aortic valvular stenosis. * There is no significant aortic regurgitation. Pulmonic Valve * The pulmonary valve is not well seen, but the Doppler examination is normal without significant regurgitation or stenosis. Great Vessels * The aortic root is normal size. Pericardium/Pleural * There is no pericardial effusion. * Medium sized area of echolucency either intrahepatic or immediately adjacent. Recommend CT of abdomen to further evaluate. Left Ventricular Diastolic Function * Diastolic dysfunction, Grade II (pseudonormalization pattern). MMode 2D Measurements and Calculations IVSd 1.1 cm IVSs 10 cm LVIDd 5.5 cm LVIDs 5.3 cm LVPWd 1.3 cm LVPWs 1.2 cm IVS/LVPW 0.82 FS 5.3 % EDV(Teich) 150.3 ml ESV(Teich) 132.5 ml EF(Teich) 11.8 % EDV(cubed) 170.6 ml ESV(cubed) 144.8 ml EF(cubed) 15.1 % % IVS thick -9.93 % % LVPW thick -12.94 % LV mass(C)d 284.9 grams LV mass(C)dI 145.4 grams/m\S\2 LV mass(C)s 220.3 grams LV mass(C)sI 112.5 grams/m\S\2 SV(Teich) 17.8 ml SI(Teich) 9.1 ml/m\S\2 SV(cubed) 25.8 ml SI(cubed) 13.2 ml/m\S\2 Ao root diam 2.7 cm Ao root area 5.8 cm\S\2 ACS 1.6 cm LA dimension 4.1 cm LA/Ao 1.5 LVOT diam 1.9 cm LVOT area 3.0 cm\S\2 Doppler Measurements and Calculations MV E max marcus 111.3 cm/sec MV A max marcus 69.2 cm/sec MV E/A 1.6 MV P1/2t max marcus 101.2 cm/sec MV P1/2t 56.2 msec MVA(P1/2t) 3.9 cm\S\2 MV dec slope 527.1 cm/sec\S\2 MV dec time 0.16 sec Ao V2 max 126.2 cm/sec Ao max PG 6.4 mmHg Ao max PG (full) 3.1 mmHg AGUSTIN(V,A) 2.1 cm\S\2 AGUSTIN(V,D) 2.1 cm\S\2 LV V1 max PG 3.2 mmHg LV V1 max 89.8 cm/sec MR max marcus 478.9 cm/sec MR max PG 91.8 mmHg PA V2 max 104.8 cm/sec PA max PG 4.4 mmHg TR max marcus 253.1 cm/sec
[2017-07-21] MEDS ORDERED: PERFLUTREN LIPID MICROSPHERE (DEFINITY) IV ONE (09:07)
--- NOTE | 2017-07-21 11:37 | DIAGNOSTIC IMAGING REPORT ---
(LIVER) ABDOMEN LIMITED HISTORY: 67 years-old Male echolucency seen in liver or adjacent on ECHO follow-up study to assess possible abnormality of the liver seen on echocardiogram. No acute right upper quadrant abdominal complaints. COMPARISON: CT chest 06/01/2015 TECHNIQUE: Multiple real-time sonographic images of the abdominal right upper quadrant were obtained assessing grayscale appearance and color Doppler flow. FINDINGS: Pancreas is obscured by bowel gas. Common bile duct is upper limits of normal, 0.6 cm. The hepatic parenchyma is mildly echogenic suggesting fatty infiltration without focal mass. Left lobe is not well seen, obscured by bowel gas. Layering stones and sludge are noted within the gallbladder lumen without gallbladder wall thickening or pericholecystic fluid collections. A positive sonographic Penaloza sign was not reported. The imaged right kidney is unremarkable without hydronephrosis. IMPRESSION: 1. Cholelithiasis and gallbladder sludge redemonstrated without sonographic evidence of acute cholecystitis. 2. No biliary ductal dilation. 3. Mildly echogenic appearance of the liver suggests fatty infiltration without focal mass identified. The above report was generated using voice recognition software. It may contain grammatical, syntax or spelling errors. Electronically signed by: Dilan Camacho M.D. 07/21/2017 11:36 AM Dictated Date/Time: 07/21/2017 11:32 AM
--- NOTE | 2017-07-21 12:04 | Discharge Instructions ---
Discharge Instructions Date of Service Jul 21, 2017. Admission Reason for Admission: Hypotensive Shock Discharge Discharge Diagnosis / Problem: Hypotensive shock, allergic reaction, NSTEMI Discharge Goals Goal(s): Decrease discomfort, Improve function, Increase independence, Improve disease control Activity Recommendations Activity Limitations: resume your previous activity Lifting Limitations: gradually increase as tolerated Exercise/Sports Limitations: rest today, gradually increase as tolerated May Resume Sexual Activity: when tolerated Shower/Bathe: no limitations Driving or Machine Use: no limitations . Instructions / Follow-Up Instructions / Follow-Up You were admitted to [facility] with severe weakness, nausea, vomiting, and diagnosed with hypotensive shock secondary to allergic reaction causing demand ischemia. During your stay here you were treated with intravenous blood thinner (heparin) , aspirin, oxygen and other supportive care. Imaging studies which were completed include: 2D Echocardiogram (ultrasound of the heart)- This was abnormal showing combined systolic and diastolic heart failure, and large size inferior, posterior, and septal wall motion abnormalities consistent with old heart attack , and current combined type heart failure. Liver Ultrasound- This was abnormal showing cholelithiasis and gallbladder sludge and a mild wheeze fatty liver For Diabetes: Your Hemoglobin A1C ( long distance operator sugar marker) is elevated at 8.4. It is important to take glipizide as directed and check your sugars regularly to prevent long distance operator vascular damage from poorly controlled diabetes. Medications: Resume plavix and baby aspirin once daily!! A new prescription for glipizide has been provided. Follow up with your family doctor for refills. Continue taking all other medications as prescribed. Appointments: Follow up with your Primary Care Provider within 1 week, an appointment has been requested for you. Follow up with Dr. Miller within 1-2 weeks, an appointment has been requested for you. Current Hospital Diet Patient's current hospital diet: AHA Diet (Heart Healthy), Diabetes Type 2 Diet Discharge Diet Recommended Diet: AHA Diet (Heart Healthy), Diabetes Type 2 Diet Pending Studies Studies pending at discharge: no Laboratory Results Hemoglobin A1c Test 07/21/17 04:44 Range/Units Estimated Average Glucose 194 mg/dl Hemoglobin A1c 8.4 H 4.5-5.6 % Lipid Panel Test 07/21/17 04:44 Range/Units Triglycerides Level 66 0-150 mg/dl Cholesterol Level 182 0-200 mg/dl HDL Cholesterol 45 mg/dl Cholesterol/HDL Ratio 4.0 LDL Cholesterol, Calculated 124 mg/dl Medical Emergencies . Who to Call and When: Medical Emergencies: If at any time you feel your situation is an emergency, please call 911 immediately. . Non-Emergent Contact Non-Emergency issues call your: Primary Care Provider, Table Maker Call Non-Emergent contact if: you have a fever, your pain is not controlled, your pain is worsening, your pain is unusual for you, your pain is concerning you, you have any medication questions . Past History Medical & Surgical History: (1) NSTEMI (non-ST elevated myocardial infarction) (2) Hypotensive shock (3) New left bundle branch block (4) Diab [place] Compl, Type Ii Or Unspec Type, Not Uncntrld (5) Hyperlipidemia Nec/Nos (6) Hypertension Nos . "Provider Documentation" section prepared by Tess Ambrose. . VTE Core Measure Inpt VTE Proph given/why not?: Unfractionated heparin SQ, T.E.D. Stockings, SCD 's
[2017-07-21] MEDS ORDERED: ASPEC81 PO (12:06)
[2017-07-21] MEDS ORDERED: GLIP-199 PO (12:06)
[2017-07-21] MEDS ORDERED: CLOP1TAB5 PO (12:06)
[2017-07-21] MEDS ORDERED: VANCOMYCIN INJ 1,500 MG in SODIUM CHLORIDE 0.9% 500ML 500 ML IV SCH (12:20)
--- NOTE | 2017-07-21 12:59 | Discharge Summary ---
Discharge Summary Date of Service Jul 21, 2017. (Shaista Ambrose PA-C) Discharge Summary Admission Date: Jul 20, 2017 at 14:55 Discharge Date: Jul 21, 2017 Discharge Disposition: Home Principal Diagnosis: Hypotensive shock secondary to allergic reaction, demand ischemia Problems/Secondary Diagnoses: hypertension, hyperlipidemia, paroxysmal a fib, ischemic cardiomyopathy with EF equal to 25-29% most recent echocardiogram being October 2015, DM II uncontrolled, hyperthyroidism, diabetic retinopathy Immunizations: Have You Had Influenza Vaccine: No History of Tetanus Vaccine?: No History of Pneumococcal: No History of Hepatitis B Vaccine: No Procedures: Echocardiogram 07/21/17 * -- Conclusions -- * Compared to previous study of 03/08/17: no cardiac change but now with presence of possible hepatic lesion. * Mildly dialted LV chamber size with normal wall thickness of the anterior and anterolateral gauthier, significant thinning of all other wall segements. * Moderately reduced LV systolic function, EF 30-35%. * There is a large size inferior, posterior, and septal myocardial infarction with severe hypokinesis to akinesis of the * segments. * Grade II diastolic dysfunction. * Moderate aortic valve sclerosis without stenosis. * Mild to moderate mitral regurgitation. * Moderate left atrial enlargement. * Medium sized area of echolucency either intrahepatic or immediately adjacent. Recommend CT of abdomen to further evaluate. CHEST ONE VIEW PORTABLE 07/20/17 CLINICAL HISTORY: Chest pain. Allergic reaction. COMPARISON STUDY: 06/02/2015 FINDINGS: There are postsurgical changes of midline sternotomy. The heart is mildly enlarged. There is no failure. There is no focal pulmonary consolidation. There are no pleural effusions.[ IMPRESSION: No active disease in the chest. (LIVER) ABDOMEN LIMITED 07/21/17 HISTORY: 67 years-old Male echolucency seen in liver or adjacent on ECHO follow-up study to assess possible abnormality of the liver seen on echocardiogram. No acute right upper quadrant abdominal complaints. COMPARISON: CT chest 06/01/2015 TECHNIQUE: Multiple real-time sonographic images of the abdominal right upper quadrant were obtained assessing grayscale appearance and color Doppler flow. FINDINGS: Pancreas is obscured by bowel gas. Common bile duct is upper limits of normal, 0.6 cm. The hepatic parenchyma is mildly echogenic suggesting fatty infiltration without focal mass. Left lobe is not well seen, obscured by bowel gas. Layering stones and sludge are noted within the gallbladder lumen without gallbladder wall thickening or pericholecystic fluid collections. A positive sonographic Penaloza sign was not reported. The imaged right kidney is unremarkable without hydronephrosis. IMPRESSION: 1. Cholelithiasis and gallbladder sludge redemonstrated without sonographic evidence of acute cholecystitis. 2. No biliary ductal dilation. 3. Mildly echogenic appearance of the liver suggests fatty infiltration without focal mass identified. Consultations: Cardiology (Shaista Ambrose, ONESIMO) Problems/Secondary Diagnoses: Cholelithiasis Gallbladder sludge Hepatic steatosis Mild-moderate mitral regurgitation (Whit Taylor MD) Medication Reconciliation New Medications: Clopidogrel Bisulfate (Plavix) 75 Mg Tab 1 TAB PO DAILY for 90 Days, #90 TAB 1 Refill Aspirin (Aspirin EC Low Dose) 81 Mg Ectab 81 MG PO QAM for 30 Days, #30 TAB Continued Medications: Furosemide (Lasix) 40 Mg Tab 1 TAB PO DAILY for 30 Days, #30 TAB 5 Refills Glipizide (Glipizide Er) 10 Mg Tab 1 TAB PO BID for 90 Days, #90 TAB 1 Refill (This prescription has been renewed) Lisinopril (Lisinopril) 2.5 Mg Tab 1 TAB PO DAILY for 30 Days, #30 TAB 5 Refills Metoprolol Tartrate (Lopressor) (Lopressor) 25 Mg Tab 25 MG PO BID, TAB Discontinued Medications: Amoxicillin & Pot Clavulanate (Amoxicillin/Clavulanate P) 1 Tab Tab 1 TAB PO BID for 10 Days, #20 TAB Discharge Exam Subjective Pt evaluation today including: conversation w/ patient, physical exam, chart review, lab review, review of studies Pain: None PO Intake: Good Voiding: no voiding problems The patient was seen and examined this morning. Pt reports doing well other than not getting any sleep overnight. Patient denies any type of chest pain, shortness of breath, palpitation, flutter. He denies any abdominal pain, cramping, loose bowels, nausea or vomiting. He is really hopeful to be able to go home today if possible. He has been up walking without difficulty. ROS: Constitutional: No fever, sweats or chills Eyes: No diplopia, no worsening or blurred vision ENT: normal hearing, no trouble swallowing Respiratory: No cough, sputum, dyspnea at rest or on exertion Cardiovascular: No chest pain, tightness or palpitations Abdomen: No pain, nausea, vomiting, diarrhea or constipation Musculoskeletal: No joint pain, calf pain, swelling Neurologic: No weakness, numbness/tingling, or balance problems Psychiatric: No anxiety or depression Skin: No rash or itch Physical Exam General Appearance: WD/WN, no apparent distress Head: normocephalic, atraumatic Eyes: PERRL, EOMI ENT: hearing grossly normal, pharynx normal Neck: supple, no JVD Respiratory/Chest: lungs clear, no respiratory distress, no accessory muscle use Cardiovascular: regular rate, rhythm, + systolic murmur (LSB 2nd ICS) Abdomen/GI: normal bowel sounds, non tender, soft Back: normal inspection Extremities/Musculoskelatal: + pertinent finding (R pinky toe without edema, no erythema over DIP, Nonfluctuant. No warmth) Neurologic/Psych: alert, normal mood/affect, oriented x 3 Skin: normal color, warm/dry (Shaista Ambrose, ONESIMO) Hospital Course History of Present Illness Source: patient This is a 67 yo M with PMHx of hypertension, hyperlipidemia, paroxysmal a fib, ischemic cardiomyopathy with EF equal to 25-29% most recent echocardiogram being October 2015, DM II uncontrolled, hyperthyroidism, diabetic retinopathy, who presents to the ER today after acutely becoming weak with nausea and vomiting this morning around 9 AM. The patient reports last evening he ate dinner which was consistent of leftovers which were quite old and had some stomach discomfort. He then noticed his right pinky toe had a scab over top of the which he removed, and a "good" amount of pus came out of this lesion. The patient had possible gangrene of a toe approximately one year ago for which he was prescribed Augmentin for a 10 day course. He only took 5 days of this course, and initially had some hives but reports "working through it"; therefore had leftover antibiotic in his house. This morning, he took 1 tablet of Augmentin 875 mg to prevent possible toe infection along with other morning meds. At approximately 9 AM, he noticed increased nausea had multiple episodes of vomiting clear bilious liquid while sitting on his front porch. He became acutely weak and felt as if he was going to pass out. He denies any coffee- ground emesis or red streaking of vomiting at that time. EMS was called by a man working on a new barn nearby his home. Of note the patient takes only metoprolol 25 mg BID, lisinopril 2.5 mg daily, and furosemide 40 mg daily. He has not taken Plavix or baby aspirin for at least one year, despite recommendations in Dr. Miller's notes. Here in the ER the patient was found to have a lactic acid of 3.12, elevated WBC of 23K, elevated troponin=0.136, and glucose >400 with ketones of 3.82. BCx have been sent. CXr appears clear. He is s/p 1.5L bolus of NSS. Pt was initially hypothermic and has a bear hugger in place. General Appearance: WD/WN, no apparent distress, + obese Head: normocephalic, atraumatic Eyes: PERRL, EOMI ENT: hearing grossly normal, pharynx normal Neck: supple, no JVD Respiratory/Chest: lungs clear, no respiratory distress, no accessory muscle use Cardiovascular: regular rate, rhythm, + systolic murmur (LSB 2nd ICS) Abdomen/GI: normal bowel sounds, non tender, soft Back: normal inspection Extremities/Musculoskelatal: + pertinent finding (R pinky toe without edema, very minimal erythema over DIP. Nonfluctuant. No warmth) Neurologic/Psych: alert, normal mood/affect, oriented x 3 Skin: normal color, warm/dry Hospital Course: This is a 67 yo M with PMHx of hypertension, hyperlipidemia, paroxysmal a fib, ischemic cardiomyopathy with EF equal to 25-29% most recent echocardiogram being October 2015, DM II uncontrolled, hyperthyroidism, diabetic retinopathy, who presents to the ER after acutely becoming weak with nausea and vomiting on . Pt was determined to have hypotensive shock secondary to allergic reaction without anaphylaxis which caused demand ischemia and bumped troponin. The patient was placed on a heparin gtt overnight with elevated troponin. Cardiology evaluated the pt and determined this was demand ischemia and that no further intervention was required. Pt was encouraged to restart aspirin and plavix along with continuing his other home medications. Hypotensive shock secondary to allergic reaction with demand ischemia Old myocardial infarct Ischemic Cardiomyopathy Diastolic and Systolic CHF Severe Mitral Regurg - Admit to tele - Allergic reaction likely to Augmentin as he took this in the past and developed adverse affects and had hives. No anaphylaxis was observed. - initial troponin elevated at 0.136, trended up to 5 and was placed on a heparin gtt overnight. - 4th troponin has dropped to 3.[address] Landa is ok with discharge with this result. - Determined that this was likely demand ischemia vs new heart attack. - EKG does not show remarkable changes from previous EKG in May - new EKG this am showing new LBBB - Restart on aspirin 81 mg every morning - He has not been on Plavix with hx of CABG and multiple intervention - pt was encouraged to resume taking this medication. - Cardiology consulted, patient follows with Dr. Miller as an outpatient. - 2-D echocardiogram 07/21: * -- Conclusions -- * Compared to previous study of 03/08/17: no cardiac change but now with presence of possible hepatic lesion. * Mildly dialted LV chamber size with normal wall thickness of the anterior and anterolateral gauthier, significant thinning of all other wall segements. * Moderately reduced LV systolic function, EF 30-35%. * There is a large size inferior, posterior, and septal myocardial infarction with severe hypokinesis to akinesis of the * segments. * Grade II diastolic dysfunction. * Moderate aortic valve sclerosis without stenosis. * Mild to moderate mitral regurgitation. * Moderate left atrial enlargement. * Medium sized area of echolucency either intrahepatic or immediately adjacent. Recommend CT of abdomen to further evaluate. - IVFs now off as pt is eating and drinking without difficulty. - Liver U/S to assess hepatic lesion: IMPRESSION: 1. Cholelithiasis and gallbladder sludge redemonstrated without sonographic evidence of acute cholecystitis. 2. No biliary ductal dilation. 3. Mildly echogenic appearance of the liver suggests fatty infiltration without focal mass identified. Lactic acidosis - Question if this is infectious source from gastroenteritis versus other etiology. Patient's right toe does not appear to be source of infection without erythema or edema, no purulent fluid expressed. Abdominal nontender, no pain. No further abdominal complaints at time of discharge - Resolved. - Blood cultures in process - will ask PCP to follow results - UA looks clear, no culture. - Was started on cefepime, flagyl and vanc in the ED - likely for possible GI source and Vanc for potential soft tissue infection. No further antibiotics at this time. ? Gastroenteritis - Pt reports eating old leftovers last evening causing him to have some diarrhea , this may be making him more nauseous and causing him to vomit if not from allergic rxn. - He was administered NSS total of 1.5 mL bolus in the ED, off maintenance fluids at this time. - cefepime/flagyl given - at this time the patient looks well, no fever, so will assess response overnight - WBC decreased to 16K today DM II Diabetic retinopathy - Poorly controlled - A1C = 8.4 - Pt ran out of glipizide 1 week ago, normal home regimen includes glipizide 10 mg twice a day - refill provided - cover with ISS with accuchecks krishans Hyperlipidemia - Checking lipid panel, not on statin - Cholesterol panel complete - total is 182. Paroxysmal A. fib - Continue metoprolol 25 mg BID for rate control DVT ppx: teds, scds, heparin 5,000 U subq CODE STATUS: Full code Disposition: Patient from home, lives alone, discharge today Total Time Spent: Greater than 30 minutes This includes examination of the patient, discharge planning, medication reconciliation, and communication with other providers. (Shaista Ambrose, ONESIMO) Discharge Instructions Please refer to the electronic Patient Visit Report (Discharge Instructions) for additional information. (Shaista Ambrose PA-C) Follow-Up Follow up with your Primary Care Provider within 1 week, an appointment has been requested for you. Follow up with Dr. Miller within 1-2 weeks, an appointment has been requested for you. (Shaista Ambrose PA-C) Additional Copies To Aissatou Chin M.D. Reviewed: Pt Seen/Exam by Me (Whit Taylor MD) History Physician Locomotive Oiler Supervision Note: I interviewed and examined the patient. Discussed with MADAI Ambrose and agree with findings and plan as documented in the note. Any exceptions or clarifications are listed here: Pt doing well. No CP, no SOB, no further N/V/D, no abd pain at all. He feels very well. Troponin trended downward, seen by Cardiology and ECHO reviewed with pt. He was initially reluctant to undergo imaging of abdomen for finding on ECHO , but then did agree to liver US as above. BPs were normal. Thought to possibly have been N/V/D and hypotension secondary to gastroenteritis or reaction to Augmentin. No signs of sepsis or infection anywhere. Demand ischemia from underlying CAD and hypotension, did not have an NSTEMI. Vitals reviewed NAD, AAOx3 RRR 2/6 JHON LLSB CTAB no wcr Abd +BS soft NT ND neg Penaloza's sign, no HSM Ext no edema Skin no rashes -ok for dc to home with PCP f/u although pt says he will not f/u with PCP f/u routinely with Cardiology Documented By: Whit Taylor (Whit Taylor MD)
[2017-07-21] MEDS ORDERED: MAGNESIUM CHLORIDE 64MG DELAYED REL TAB PO SCH (21:00)
--- NOTE | 2017-07-21 23:41 | CARDIOLOGY CONSULTATION ---
DATE OF CONSULTATION: 07/21/2017 INPATIENT CONSULTATION CONSULTATION REQUESTED BY: Dr. Hall ATTENDING OF RECORD: Elevated troponin. HISTORY OF PRESENT ILLNESS: Mr. Cook is a 67-year-old gentleman who transiently follows with me as an outpatient for his history of ischemic cardiomyopathy and mitral regurgitation, who presented to [facility] on 07/20/2017 with a complaint of significant nausea, vomiting and weakness. The patient states his symptoms started approximately 2 months ago when he had a toe infection. He was seen by his primary care physician and placed on Augmentin for treatment. He initially had a slight reaction to it, but he was able to tolerate the next 7 days. His toe then reportedly improved and the medication was discontinued; however, a few days ago he started noticing some pus coming out of the toe, so he took it upon himself to restart the Augmentin and with that, he seemed to have a very violent reaction. He became significantly nauseated, multiple vomiting and retching episodes and severe weakness. 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 Upon arrival, his troponin was mildly elevated at 0.1, he was admitted to telemetry and his troponin then trended up peaking at 5.2. The patient denied experiencing any cardiac complaints whatsoever. He specifically denies any chest pain, shortness of breath, palpitations, lightheadedness, dizziness, or syncope. He specifically denied any jaw pain which was his previous anginal equivalent. PAST SURGICAL HISTORY: 1. Coronary bypass grafting with unknown grafts. 2. Multiple PCIs to the ramus after bypass. 3. Tonsillectomy as a child. 4. Multiple laser eye surgeries. MEDICAL ILLNESSES: 1. Ischemic cardiomyopathy, EF most recently 30-35%. 2. Transient mitral regurgitation, severe, but improved to mild, noncompliant with medications. 3. History of medical noncompliance. 4. History of pericardial effusion. 5. Diabetes. 6. Hypertension. 7. Hyperlipidemia. FAMILY HISTORY: Noncontributory. SOCIAL HISTORY: Denies any alcohol, tobacco or recreational drug use. He is not . He lives with his partner over 30 years. He is an active brandon. REVIEW OF SYSTEMS: As per HPI, all other review of systems reviewed and negative at this time. ALLERGIES: 1. PREDNISONE. 2. IODINE. MEDICATIONS AN OUTPATIENT: 1. Lisinopril 2.5 mg daily. 2. Metoprolol tartrate 25 mg b.i.d. 3. Plavix 75 mg daily. 4. Lasix 40 mg daily with an extra tablet as needed for volume overload. 5. Aspirin 81 mg daily. PHYSICAL EXAMINATION: VITALS: Temperature 36.6, pulse 68, respiratory rate 12, blood pressure GENERAL: Awake, alert, oriented x3 in no acute distress. HEENT: Normocephalic, atraumatic. Pupils equal, round, and reactive to light and accommodation. Extraocular muscles intact. Anicteric sclerae. Moist mucous membranes. NECK: No JVD, no bruit. CARDIOVASCULAR: Regular. Positive S4. Normal S1 and S2, 3/6 holosystolic ejection murmur greatest at the left sternal border midclavicular line with radiation to the left axilla. No rubs. PULMONARY: Clear to auscultation bilaterally. No rales, rhonchi, or wheezing. ABDOMEN: Bowel sounds x4, soft. No rebound, guarding, tenderness. No organomegaly. EXTREMITIES: No clubbing, cyanosis or edema. +2 pedal pulses bilaterally. SKIN: Warm and dry. TEST RESULTS: A 2D echocardiogram was read as compared to previous study of 03/08/2017: 1. No cardiac change but now presence of possible hepatic lesion. 1. Mildly dilated LV chamber size with normal wall thickness of the anterior and anterolateral wall, significant thinning of all other segments, moderately reduced LV systolic function, EF 30-35%. There is a large sized inferior, posterior, and septal myocardial infarction, severe hypokinesis to akinesis of the segments, grade 2 diastolic dysfunction, moderate aortic valve sclerosis without stenosis, mild to moderate mitral regurgitation, moderate left atrial enlargement, medium sized area of echo lucency either intrahepatic or immediately adjacent, recommend CT abdomen to further evaluate. A 12-lead EKG performed in the Emergency Department upon arrival independently reviewed at this time shows normal sinus rhythm at 79 beats per minute, left axis deviation, poor R-wave progression across the precordium and inverted ST segment depressions in the lateral leads, no significant change compared to previous studies. Repeat echocardiogram at 1900 shows normal sinus rhythm with slight improvement of the lateral ST segment depressions and nonspecific intraventricular conduction delay, possible incomplete left bundle branch block. Follow up EKG Paige 2nd at 07:10 shows sinus rhythm with occasional PVCs at 81 beats per minute with incomplete left bundle branch block. A 12-lead EKG at 09:20 shows resolution of a complete left bundle branch block. IMPRESSION: 1. Stress induced increased myocardial demand in the setting of significant reaction to medication. 2. Underlying ischemic cardiomyopathy, stable with no new wall motion abnormalities. 3. Transient incomplete left bundle branch block, likely secondary to demand ischemia. 4. Mild mitral regurgitation, stable. RECOMMENDATIONS: It was my pleasure to see Mr. Cook in reevaluation today. Given the clinical context of the patient being without cardiac complaint and the fact that his underlying ischemic cardiomyopathy, I believe both increased troponin level and intermittent incomplete left bundle branch block are secondary to demand ischemia and do not represent active ischemia, but only strain on his underlying coronary artery disease. So no further cardiac testing or intervention is necessary at this time. His vital signs are stable and no medication changes will be made. It is okay to discharge him from a cardiac standpoint given the fact that his troponin is now trending down. He is to followup in the cardiology clinic with either myself or Dr. Michael Moon in the next few weeks, to determine further ischemic testing is necessary. TRAE
== END 2017-07-21 12:40 | disposition home or self-care (01) | DRG 312 ==
LOC: EDBD 10:47 → C.EDC 10:48 → C.2T 14:55 → ENRESERV 15:04
PROVIDERS: ADMIT Hospitalist; ATTEND Hospitalist
DX: I95.2 Hypotension due to drugs (principal); R57.8 Other shock; I24.8 Other forms of acute ischemic heart disease; I11.0 Hypertensive heart disease with heart failure; I50.40 Unspecified combined systolic (congestive) and diastolic (congestive) heart failure; E87.2 Acidosis; T36.0X5A Adverse effect of penicillins, initial encounter; X58.XXXA Exposure to other specified factors, initial encounter; Z88.0 Allergy status to penicillin; I25.5 Ischemic cardiomyopathy; I34.0 Nonrheumatic mitral (valve) insufficiency; I25.10 Atherosclerotic heart disease of native coronary artery without angina pectoris; A05.9 Bacterial foodborne intoxication, unspecified; E11.65 Type 2 diabetes mellitus with hyperglycemia; E11.319 Type 2 diabetes mellitus with unspecified diabetic retinopathy without macular edema; E78.5 Hyperlipidemia, unspecified; I48.0 Paroxysmal atrial fibrillation; K76.0 Fatty (change of) liver, not elsewhere classified; E05.90 Thyrotoxicosis, unspecified without thyrotoxic crisis or storm; I25.2 Old myocardial infarction; Z95.1 Presence of aortocoronary bypass graft; Z87.891 Personal history of nicotine dependence; Z82.49 Family history of ischemic heart disease and other diseases of the circulatory system; Z88.8 Allergy status to other drugs, medicaments and biological substances; Z91.041 Radiographic dye allergy status

== ENCOUNTER 2017-08-09 21:44 | Emergency (ER) | payer OTHER, BC ==
[~2017-08-09] VITALS: Ht 177.8 cm; Wt 84.6 kg
[~2017-08-09 21:44] MED LIST changes: +ASPEC81 PO; -ASPI1TAB2 PO; -SPIR25TA PO; -SULF-183 PO
[2017-08-09 22:44] VITALS: TEMP 37.4; Ht 177.8 cm; Wt 84.6 kg
[2017-08-09] MEDS ORDERED: SODIUM CHLORIDE 0.9% 500ML 500 ML IV STA (23:45)
--- NOTE | 2017-08-09 23:48 | EMERGENCY ROOM VISIT NOTE ---
History Report prepared by Farrah: Andrae Lee Under the Supervision of: Dr. Jorge Tomas M.D. First contact with patient: 23:26 Chief Complaint: WOUND INFECTION Stated Complaint: RT FOOT, PINKY TOE INFECTED Nursing Triage Summary: infected toe on the right foot with increased redness up the foot and fever. History of Present Illness The patient is a 67 year old white male with a past medical history of DM and HTN who presents to the ED with a cc of a worsening wound infection beginning a couple of days ago. He states that he had a calus on his right pinky toe over the summer that he states "he gradually worked off". The patient states that he noticed an infection a couple of days ago. His reports that the infection worsened since 0900 today. He reports that he experienced an episode of vomiting tonight. The patient states that he was recently put on Losartan for his history of HTN. The patient states that he lost his right middle toe due to an infection in the past. Positive fevers, chills, vomiting. Source of History: patient Onset: a couple of days ago Position: toe(s) (right pinky toe) Quality: other (infection) Timing: worsening Associated Symptoms: + fevers, + chills, + vomiting Review of Systems See HPI for pertinent positives and negatives. A total of ten systems were reviewed and were otherwise negative. Past Medical & Surgical Medical Problems: (1) Atrial Fibrillation (2) CHF (congestive heart failure) (3) Diab [place] Wo Compl, Type Ii Or Unspec Type, Not Uncntrld (4) Hyperlipidemia Nec/Nos (5) Hypertension Nos (6) Hypotensive shock (7) NSTEMI (non-ST elevated myocardial infarction) (8) Old Myocardial Infarct Surgical Problems: (1) H/O heart bypass surgery Family History FH ischemic heart disease Social History Smoking Status: Never Smoker Alcohol Use: none Drug Use: none Marital Status: in relationship Housing Status: lives with family Occupation Status: employed Current/Historical Medications Scheduled Ascorbic Acid (Ascorbic Acid), 1,000 MG PO DAILY B-Complex Vitamins (Vitamin B Complex), 1 TAB PO DAILY Clindamycin Hcl (Cleocin), 450 MG PO QID Coenzyme Q10 (Ubidecarenone) (Co Q 10), 200 MG PO DAILY Furosemide (Lasix), 40 MG PO DAILY Glipizide (Glipizide Er), 10 MG PO BID Lisinopril (Lisinopril), 2.5 MG PO DAILY Losartan Potassium (Cozaar), Unknown Dose PO DAILY Metoprolol Tartrate (Lopressor) (Lopressor), 25 MG PO DAILY Nitroglycerin (Nitrostat), 0.4 MG UT PRN Allergies Coded Allergies: Amoxicillin (Verified Allergy, Severe, hives swelling redness lip swelling , 07/20/17) Clavulanic Acid (Verified Allergy, Severe, hypotensive shock, 07/21/17) Iodinated Diagnostic Agents (Verified Allergy, Intermediate, HIVES, 07/20/17 ) Prednisone (Unverified Allergy, Intermediate, SHORTNESS OF BREATH, 07/20/17) as per patient Physical Exam Vital Signs Date Time Temp Pulse Resp B/P (MAP) Pulse Ox O2 Delivery O2 Flow Rate FiO2 08/10/17 01:01 82 20 152/76 98 Room Air 08/10/17 00:05 80 20 140/73 96 Room Air 08/09/17 22:44 37.4 89 20 134/73 93 Room Air Physical Exam GENERAL: Awake, alert, well-appearing, NAD HENT: Normocephalic, atraumatic. EYES: Normal conjunctiva. Sclera non-icteric. NECK: Supple. No nuchal rigidity. FROM. RESPIRATORY: CTAB, no rhonchi, wheezing, crackles CARDIAC: RRR, no MRG ABDOMEN: Soft, NTND, BS+ MSK: No chest wall TTP, no LE edema NEURO: GCS 15, CN 2-12 intact, moves all 4s on command SKIN: No rash or jaundice noted. Only has four digits on RLE. Redness to fifth digit with noted hemorrhage armando on the dorsal aspect of the right phalanx. Streaky redness from dorsal aspect of foot to huizar. Calor. NV intact. Medical Decision & Procedures ER Provider Diagnostic Interpretation: Right Foot X-ray Hind foot and mid foot congruent. Missing third phalanx. No gas noted over right fifth phalanx. Cortices mildly blunted. Laboratory Results 08/10/17 00:00 Red Blood Count 4.45, Mean Corpuscular Volume 87.6, Mean Corpuscular Hemoglobin 30.3, Mean Corpuscular Hemoglobin Concent 34.6, Mean Platelet Volume 11.5, Neutrophils (%) (Auto) 79.9, Lymphocytes (%) (Auto) 7.3, Monocytes (%) (Auto) 12.2, Eosinophils (%) (Auto) 0.2, Basophils (%) (Auto) 0.2, Neutrophils # (Auto ) 8.04, Lymphocytes # (Auto) 0.73, Monocytes # (Auto) 1.23, Eosinophils # (Auto ) 0.02, Basophils # (Auto) 0.02 08/10/17 00:00 Test 08/10/17 00:00 White Blood Count 10.06 K/uL (4.8-10.8) Red Blood Count 4.45 M/uL (4.7-6.1) Hemoglobin 13.5 g/dL (14.0-18.0) Hematocrit 39.0 % (42-52) Mean Corpuscular Volume 87.6 fL (80-100) Mean Corpuscular Hemoglobin 30.3 pg (25-34) Mean Corpuscular Hemoglobin Concent 34.6 g/dl (32-36) Platelet Count 179 K/uL (130-400) Mean Platelet Volume 11.5 fL (7.4-10.4) Neutrophils (%) (Auto) 79.9 % Lymphocytes (%) (Auto) 7.3 % Monocytes (%) (Auto) 12.2 % Eosinophils (%) (Auto) 0.2 % Basophils (%) (Auto) 0.2 % Neutrophils # (Auto) 8.04 K/uL (1.4-6.5) Lymphocytes # (Auto) 0.73 K/uL (1.2-3.4) Monocytes # (Auto) 1.23 K/uL (0.11-0.59) Eosinophils # (Auto) 0.02 K/uL (0-0.5) Basophils # (Auto) 0.02 K/uL (0-0.2) RDW Standard Deviation 41.1 fL (36.4-46.3) RDW Coefficient of Variation 12.7 % (11.5-14.5) Immature Granulocyte % (Auto) 0.2 % Immature Granulocyte # (Auto) 0.02 K/uL (0.00-0.02) Erythrocyte Sedimentation Rate 19 mm/hr (0-14) Anion Gap 4.0 mmol/L (3-11) Est Creatinine Clear Calc Drug Dose 62.5 ml/min Estimated GFR () 72.6 Estimated GFR (Non- 62.6 BUN/Creatinine Ratio 18.8 (10-20) Calcium Level 8.6 mg/dl (8.5-10.1) C-Reactive Protein 2.55 mg/dl (0-0.29) Laboratory results reviewed by me Medications Administered Medications (Trade) Dose Ordered Sig/Madison Route Start Time Stop Time Status Last Admin Dose Admin Sodium Chloride 500 ml @ 999 mls/hr Q31M STAT IV 08/09/17 23:45 08/10/17 00:15 DC 08/10/17 00:07 999 MLS/HR Clindamycin HCl (Cleocin Cap) 450 mg NOW ONCE PO 08/10/17 00:45 08/10/17 00:46 DC 08/10/17 01:00 450 MG Procedure Incision & Drainage Indication: Abscess. Location: Right 5th phalanx Verbal consent was obtained after the risks and benefits were explained, including but not limited to bleeding, scarring, infection, pain, and bone/joint /nerve damage. At this time, the risks of the procedure are less than the risks of NOT performing the procedure. A time out was taken and the correct patient and site identified. The skin was prepped with betadine and a sterile field set. The wound was anesthetized with 3-4 ml of 1% lidocaine without epinephrine. The abscess cavity was entered with a number 11 blade and blood and mild purulent material expressed. Copious irrigation was performed using normal saline. The wound was explored for foreign bodies and none found. Debridement was not performed. Packing placed and a sterile dressing applied. Detailed wound care instructions and signs and symptoms of worsening infection reviewed with the patient. No complications and the patient tolerated the procedure well. ED Course 2336: The patient was evaluated in room C12B. A complete history and physical exam was performed. 0012: I performed an incision and drainage. See procedure notes for further detail. 0112: I reevaluated the patient. Discussed results and discharge instructions: He verbalized understanding and agreement. The patient is ready for discharge. Medical Decision The differential diagnosis includes etiologies such as: cellulitis, lymphitis, and osteomyelitis. Patient w/ blister and redness changes, warmth. Cellulitis and possible lymphangitis. patient WBC WNL. AG WNL. BG mildly elevated > 200. Foot XR interpreted by myself, no fracture, no gas. Does not appear to be lytic over 5th phalanx where blister is located. Patient blister I&D, unroofed. Mainly blood but w/ some purulence and foul smelling. Washed w/ copious amount of NS. Bandaged. Patient given PO abx. Tolerated well. AFVSS. Patient well appearing, not septic. Suitable for outpatient trx. Given wound care, f/u, d/c, and return precautions and safely d/c'ed to home. Medication Reconcilliation Current Medication List: was personally reviewed by me Blood Pressure Screening Patient's blood pressure: Elevated blood pressure Blood pressure disposition: Referred to PCP Impression Primary Impression: Lymphangitis, acute, lower leg Additional Impression: Abscess of right foot including toes Scribe Attestation The scribe's documentation has been prepared under my direction and personally reviewed by me in its entirety. I confirm that the note above accurately reflects all work, treatment, procedures, and medical decision making performed by me. Departure Information Dispostion Home / Self-Care Prescriptions Clindamycin Hcl (CLEOCIN) 150 Mg Cap 450 MG PO QID for 7 Days, #84 CAP Prov: Jorge Tomas M.D. 08/10/17 Referrals Aissatou Chin M.D. (PCP) Patient Instructions ED Abscess IandD, ED Wound Care, [facility] Additional Instructions Please return to the emergency department if you have worsening or recurrent symptoms not amenable to at-home treatment. Please call for a follow-up appointment with her primary care physician. Please take your medications as prescribed. If you have other concerns and/or complaints please feel free to also call your primary care physician's office or return the ED for further evaluation, management, and treatment. Avoid soaking wound. Apply antibiotic ointment to area, bandage, change daily, gentle soap and water to clean. Watch for worsening drainage, redness, or fevers. Take antibiotics as prescribed. Consider taking them w/ a probiotic and/ or yogurt to help replenish healthy gut bacteria. You have been examined and treated today on an emergency basis only. This is not a substitute for, or an effort to provide, complete comprehensive medical care. It is impossible to recognize and treat all injuries or illnesses in a single emergency department visit. It is therefore important that you follow up closely with [facility]. Call as soon as possible for an appointment. Thank you for your time and consideration. I look forward to speaking with you again soon. Please don't hesitate to call us if you have any questions. Problem Qualifiers
[2017-08-10 00:17] LABS: BASO % 0.2 %; BASO ABS # 0.02 K/uL (0-0.2); COMPLETE YES; EOS % 0.2 %; IG% 0.2 %; LYMPH % 7.3 %; LYMPH ABS # 0.73 K/uL (1.2-3.4); MEAN CELL VOLUME 87.6 fL (80-100); MEAN CORPUSCULAR HEMOGLOBIN 30.3 pg (25-34); MEAN CORPUSCULAR HGB CONC 34.6 g/dl (32-36); MEAN PLATELET VOLUME 11.5 fL (7.4-10.4); MONO % 12.2 %; NEUT % 79.9 %; PLATELET COUNT 179 K/uL (130-400); RED BLOOD COUNT 4.45 M/uL (4.7-6.1); WHITE BLOOD COUNT 10.06 K/uL (4.8-10.8)
[2017-08-10 00:41] LABS: BUN/CREATININE RATIO 18.8 (10-20); C-REACTIVE PROTEIN 2.55 mg/dl (0-0.29); CALCIUM 8.6 mg/dl (8.5-10.1); CREATININE 1.2 mg/dl (0.60-1.40); POTASSIUM 4.2 mmol/L (3.5-5.1)
[2017-08-10] MEDS ORDERED: CLINDAMYCIN HCL 150 MG CAP PO ONE (00:45)
[2017-08-10] MEDS ORDERED: GLIP-199 PO (00:45)
[2017-08-10] MEDS ORDERED: ASCO100061 PO (00:50)
[2017-08-10] MEDS ORDERED: B-COTAB18 PO (00:52)
[2017-08-10] MEDS ORDERED: COEN1CAP17 PO (00:53)
[2017-08-10] MEDS ORDERED: NITR0.4S UT (00:56)
[2017-08-10] MEDS ORDERED: LOSA1TAB PO (00:57)
[2017-08-10 01:01] VITALS: BP 152/76; PULSE 82; O2SAT 98
[2017-08-10] MEDS ORDERED: CLIN150C PO ×2 (01:15→01:20)
--- NOTE | 2017-08-10 06:48 | DIAGNOSTIC IMAGING REPORT ---
R FOOT MIN 3 VIEWS ROUTINE CLINICAL HISTORY: cellulitis, DM COMPARISON: None. DISCUSSION: The patient is status post amputation of the third digit at the level of the metatarsal phalangeal joint. There are advanced arthritic changes the level the first metatarsal phalangeal joint. There are nonspecific erosive changes involving the distal phalanx of the second toe. There are vascular calcifications present. There is small plantar calcaneal spur. IMPRESSION: 1. Postsurgical changes involving amputation of the third toe 2. Nonspecific erosive changes involving the tuft of the distal phalanx of the second toe 3. Advanced arthritic changes involving the first metatarsal phalangeal joint with joint space narrowing, subchondral cyst formation, bony fragmentation and sclerosis. Electronically signed by: Valentin Werner M.D. 08/10/2017 6:47 AM Dictated Date/Time: 08/10/2017 6:45 AM
== END 2017-08-10 01:24 | disposition home or self-care (01) ==
LOC: C.EDB 21:47 → C.EDC 08-10 01:24
DX: L03.125 Acute lymphangitis of right lower limb (principal); L02.611 Cutaneous abscess of right foot; R50.9 Fever, unspecified; R11.10 Vomiting, unspecified; E11.9 Type 2 diabetes mellitus without complications; I10 Essential (primary) hypertension; E78.5 Hyperlipidemia, unspecified; I48.91 Unspecified atrial fibrillation; I25.2 Old myocardial infarction; Z79.899 Other long term (current) drug therapy; Z86.79 Personal history of other diseases of the circulatory system

== ENCOUNTER → 2017-09-06 | Outpatient (CLI) | payer OTHER, BC ==
[~2017-09-06] MED LIST changes: +ASCO100061 PO; -ASPEC81 PO; +B-COTAB18 PO; +CLIN1CAP51 PO; -CLOP1TAB5 PO; -LISI2.5T5 PO; +LOSA1TAB PO; +NITR0.4S UT; +NTRGSL/4 UT
[2017-09-06 17:34] LABS: BLOOD UREA NITROGEN 26 mg/dl (7-18); CREATININE 1.45 mg/dl (0.60-1.40)
== END | disposition home or self-care (01) ==
LOC: C.LABPVFM 13:26
PROVIDERS: ATTEND Emergency Medicine
DX: S91.104D Unspecified open wound of right lesser toe(s) without damage to nail, subsequent encounter (principal); X58.XXXD Exposure to other specified factors, subsequent encounter

== ENCOUNTER → 2017-09-10 | Outpatient (CLI) | payer OTHER, BC ==
[~2017-09-10] MED LIST changes: -CLIN1CAP51 PO; +GADAVIST IV PRN
--- NOTE | 2017-09-10 07:41 | DIAGNOSTIC IMAGING REPORT ---
RIGHT FOREFOOT MRI HISTORY: Right fifth toe NON HEALING WOUND TECHNIQUE: Multiplanar multisequence MRI of the right forefoot was performed both before and after the intravenous administration of contrast. COMPARISON STUDY: Right foot 08/10/2017. FINDINGS: Skin marker overlying the dorsal lateral aspect of the fifth toe. There is no underlying 5 mm focal skin ulceration. Soft tissue edema and enhancement within the surrounding soft tissues of the fifth toe consistent with a cellulitis. There is also marrow edema and decreased T1 signal within the majority of the proximal and middle phalanges. These areas also demonstrate enhancement. Cortex appears thinned and possibly eroded along the dorsal lateral aspect of the head of the proximal phalanx of the fifth toe. Therefore, these findings are suspicious for osteomyelitis. Prior amputation of the third toe. Irregularity at the distal tuft of the second toe which is not well visualized. IMPRESSION: 1. Abnormal marrow signal and enhancement within the proximal and middle phalanges of the fifth toe which likely represents osteomyelitis. 2. Prior amputation of the third toe. 3. Irregularity at the distal tuft of the fourth toe which is only partially imaged on this study. Electronically signed by: Satish Castro M.D. 09/10/2017 7:39 AM Dictated Date/Time: 09/10/2017 7:33 AM
== END | disposition home or self-care (01) ==
LOC: C.MRI 06:22
PROVIDERS: ATTEND Emergency Medicine
DX: S91.104A Unspecified open wound of right lesser toe(s) without damage to nail, initial encounter (principal); X58.XXXA Exposure to other specified factors, initial encounter; Z89.421 Acquired absence of other right toe(s); R93.7 Abnormal findings on diagnostic imaging of other parts of musculoskeletal system

== ENCOUNTER → 2017-10-01 | Outpatient (CLI) | payer OTHER, BC ==
[~2017-10-01] MED LIST changes: +CLIN1CAP51 PO; -GADAVIST IV PRN
--- NOTE | 2017-10-01 14:10 | DIAGNOSTIC IMAGING REPORT ---
RIGHT LOWER EXTREMITY VENOUS DOPPLER HISTORY: RIGHT CALF SWELLING, R/O DVT COMPARISON STUDY: None. FINDINGS: There is normal compressibility, flow, and augmentation within the right lower extremity deep venous system. IMPRESSION: No DVT within the right lower extremity Electronically signed by: Satish Castro M.D. 10/01/2017 2:09 PM Dictated Date/Time: 10/01/2017 2:09 PM
== END | disposition home or self-care (01) ==
LOC: C.ULTRBC 13:04
PROVIDERS: ATTEND Orthopaedic Surgery Sports Medicine
DX: M79.89 Other specified soft tissue disorders (principal)

== ENCOUNTER 2017-12-16 21:26 | Inpatient (IN) | payer OTHER, BC ==
[~2017-12-16] VITALS: Ht 177.8 cm; Wt 90.0 kg
[~2017-12-16 21:26] MED LIST changes: -CLIN1CAP51 PO
[2017-12-16] MEDS ORDERED: CZR25 PO (22:28)
[2017-12-16] MEDS ORDERED: SILD1TAB39 PO (22:28)
[2017-12-16] MEDS ORDERED: COEN1CAP17 PO (22:28)
[2017-12-16] MEDS ORDERED: SLWMEC PO (22:28)
[2017-12-16 22:40] LABS: BASO % 0.2 %; BASO ABS # 0.02 K/uL (0-0.2); EOS % 1.6 %; EOS ABS # 0.14 K/uL (0-0.5); HEMATOCRIT 43.2 % (42-52); IG# 0.02 K/uL (0.00-0.02); LYMPH % 7.6 %; LYMPH ABS # 0.65 K/uL (1.2-3.4); MEAN CORPUSCULAR HEMOGLOBIN 30.5 pg (25-34); MEAN CORPUSCULAR HGB CONC 34.7 g/dl (32-36); MEAN PLATELET VOLUME 11.8 fL (7.4-10.4); MONO % 10.5 %; NEUT % 79.9 %; NEUT ABS # 6.81 K/uL (1.4-6.5); PLATELET COUNT 119 K/uL (130-400); RED CELL DISTRIBUTION WIDTH CV 13.3 % (11.5-14.5); RED CELL DISTRIBUTION WIDTH SD 42.8 fL (36.4-46.3); WHITE BLOOD COUNT 8.54 K/uL (4.8-10.8)
[2017-12-16 22:57] LABS: CREATININE 1.19 mg/dl (0.60-1.40)
[2017-12-16 22:58] LABS: INFLUENZA B ANTIGEN Neg for Influ B (NEG)
[2017-12-17] VITALS (33 sets, daily range): BP systolic 66–166; BP diastolic 34–83; PULSE 77–111; TEMP 36.7–37.2; O2SAT 95–100; BMI 26.7
[2017-12-17] MEDS ORDERED: ALBUT/IPRATROP 3MG/0.5MG NEB 3 ML VIAL INH STA (00:11)
[2017-12-17] MEDS ORDERED: FUROSEMIDE 40 MG/4 ML VIAL IV STA (00:11)
--- NOTE | 2017-12-17 01:01 | EMERGENCY ROOM VISIT NOTE ---
History Report prepared by Farrah: Katalina Ramos Under the Supervision of: Dr. Christiano Wagner M.D. First contact with patient: 21:50 Chief Complaint: SHORTNESS OF BREATH Stated Complaint: SHORT OF BREATH History of Present Illness The patient is a 67 year old male who presents to the Emergency Room with complaints of persistent coughing December 15, 2017. He states that he has been dealing with a cold over this past weekend. 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 He rated his discomfort a 7/10 in severity. He states that he became short of breath. He denies any specific chest pain, though notes upper body aches. He states that he has had a fever of 100. He has a history of CHF, cardiac stents, and double bypass. He notes that he is not currently experiencing any shortness of breath. He denies any history of COPD. He denies a history of smoking. He denies any leg swelling. Source of History: patient Onset: December 15, 2017 Position: other (global ) Symptom Intensity: 7/10 Quality: other (coughing) Timing: other (persistent) Associated Symptoms: + fevers, + SOB, No chest pain Note: He notes upper body aches. He denies any leg swelling. Review of Systems See HPI for pertinent positives & negatives. A total of 10 systems reviewed and were otherwise negative. Past Medical & Surgical Medical Problems: (1) Abnormal EKG (2) Atrial Fibrillation (3) CHF (congestive heart failure) (4) CHF (congestive heart failure) (5) Diab [place] Wo Compl, Type Ii Or Unspec Type, Not Uncntrld (6) Hyperglycemia (7) Hyperlipidemia Nec/Nos (8) Hypertension Nos (9) Hypotensive shock (10) New left bundle branch block (11) NSTEMI (non-ST elevated myocardial infarction) (12) Old Myocardial Infarct (13) Pneumonia (14) Shortness of breath (15) SOB (shortness of breath) (16) Toe osteomyelitis, right Surgical Problems: (1) H/O cardiac catheterization (2) H/O heart artery stent (3) H/O heart bypass surgery (4) Status post double vessel coronary artery bypass Family History Cancer Diabetes mellitus FH ischemic heart disease Social History Smoking Status: Never Smoker Alcohol Use: none Drug Use: none Marital Status: in relationship Housing Status: lives alone Occupation Status: employed Current/Historical Medications Scheduled Ascorbic Acid (Ascorbic Acid), 1,000 MG PO BID B-Complex Vitamins (Vitamin B Complex), 1 TAB PO DAILY Coenzyme Q10 (Ubidecarenone) (Co Q 10), 200 MG PO DAILY Furosemide (Lasix), 40 MG PO DAILY Glipizide (Glipizide Er), 10 MG PO BID Losartan Potassium (Losartan Potassium), 25 MG PO DAILY Magnesium Chloride (Slow-Mag Tab), 2 TABS PO DAILY Metoprolol Tartrate (Lopressor) (Lopressor), 25 MG PO BID Nitroglycerin (Nitrostat), 0.4 MG UT PRN Scheduled PRN Sildenafil Citrate (Pulmonary (Sildenafil), 20-40 MG PO DIRECTED PRN for SEXUAL INTERCOURSE Allergies Coded Allergies: Amoxicillin (Verified Allergy, Severe, hives swelling redness lip swelling , 12/16/17) Clavulanic Acid (Verified Allergy, Severe, hypotensive shock, 12/16/17) Iodinated Diagnostic Agents (Verified Allergy, Intermediate, HIVES, ) Prednisone (Verified Allergy, Intermediate, SHORTNESS OF BREATH, 12/16/17) as per patient Physical Exam Vital Signs Date Time Temp Pulse Resp B/P (MAP) Pulse Ox O2 Delivery O2 Flow Rate FiO2 12/17/17 00:19 104 18 160/84 94 Room Air 12/16/17 22:26 97 12/16/17 21:29 36.9 109 20 154/87 94 Room Air Physical Exam Constitutional: Vital signs reviewed. Eyes: Pupils are equal round reactive to light. Conjunctiva are noninjected. ENT: Pharynx is clear without erythema or exudate. Mucous membranes are dry. Neck supple without meningeal signs. Respiratory: Clear to auscultation bilaterally. Breath sounds are equal bilaterally. Cardiovascular: Regular rate and rhythm. No rubs or gallops. GI: Soft, nondistended and nontender. Bowel sounds are present. Musculoskeletal: No peripheral edema. No lower extremity tenderness. Integumentary: No cyanosis. Neurological: The patient is awake and alert. No focal deficits. Psychiatric: Normal affect. Medical Decision & Procedures ER Provider Diagnostic Interpretation: Radiology results as stated below per my review and interpretation: No consolidation. Mild cardiomegaly. Mild congestion. Laboratory Results 12/16/17 22:20 Red Blood Count 4.91, Mean Corpuscular Volume 88.0, Mean Corpuscular Hemoglobin 30.5, Mean Corpuscular Hemoglobin Concent 34.7, Mean Platelet Volume 11.8, Neutrophils (%) (Auto) 79.9, Lymphocytes (%) (Auto) 7.6, Monocytes (%) (Auto) 10.5, Eosinophils (%) (Auto) 1.6, Basophils (%) (Auto) 0.2, Neutrophils # (Auto ) 6.81, Lymphocytes # (Auto) 0.65, Monocytes # (Auto) 0.90, Eosinophils # (Auto ) 0.14, Basophils # (Auto) 0.02 12/16/17 22:20 Test 12/16/17 22:20 White Blood Count 8.54 K/uL (4.8-10.8) Red Blood Count 4.91 M/uL (4.7-6.1) Hemoglobin 15.0 g/dL (14.0-18.0) Hematocrit 43.2 % (42-52) Mean Corpuscular Volume 88.0 fL (80-100) Mean Corpuscular Hemoglobin 30.5 pg (25-34) Mean Corpuscular Hemoglobin Concent 34.7 g/dl (32-36) Platelet Count 119 K/uL (130-400) Mean Platelet Volume 11.8 fL (7.4-10.4) Neutrophils (%) (Auto) 79.9 % Lymphocytes (%) (Auto) 7.6 % Monocytes (%) (Auto) 10.5 % Eosinophils (%) (Auto) 1.6 % Basophils (%) (Auto) 0.2 % Neutrophils # (Auto) 6.81 K/uL (1.4-6.5) Lymphocytes # (Auto) 0.65 K/uL (1.2-3.4) Monocytes # (Auto) 0.90 K/uL (0.11-0.59) Eosinophils # (Auto) 0.14 K/uL (0-0.5) Basophils # (Auto) 0.02 K/uL (0-0.2) RDW Standard Deviation 42.8 fL (36.4-46.3) RDW Coefficient of Variation 13.3 % (11.5-14.5) Immature Granulocyte % (Auto) 0.2 % Immature Granulocyte # (Auto) 0.02 K/uL (0.00-0.02) Anion Gap 9.0 mmol/L (3-11) Est Creatinine Clear Calc Drug Dose 63.0 ml/min Estimated GFR () 73.3 Estimated GFR (Non- 63.3 BUN/Creatinine Ratio 15.5 (10-20) Calcium Level 9.0 mg/dl (8.5-10.1) Troponin I 0.017 ng/ml (0-0.045) Pro-B-Type Natriuretic Peptide 3531 pg/ml (0-900) Influenza Type A Antigen Neg for Influ A (NEG) Influenza Type B Antigen Neg for Influ B (NEG) Laboratory results as reviewed by me. Medications Administered Medications (Trade) Dose Ordered Sig/Madison Route Start Time Stop Time Status Last Admin Dose Admin Albuterol/ Ipratropium (Duoneb) 3 ml NOW STAT INH 12/17/17 00:11 12/17/17 00:13 DC 12/17/17 00:16 3 ML Furosemide (Lasix Inj) 40 mg NOW STAT IV 12/17/17 00:11 12/17/17 00:13 DC 12/17/17 00:16 40 MG ECG Indication: SOB/dyspnea Rate (beats per minute): 98 Rhythm: normal sinus Findings: Q waves (Anterior, Septal, and Inferior), ST depression, T-wave inversion (Lateral) Change: no significant change (when compared to 07/21/2017) Change: Patient's electrocardiogram per my interpretation. ED Course 2151: The patient was evaluated in room C8. A complete history and physical exam was performed. 0009: I reassessed the patient at this time. I discussed the results and treatment plan with the patient. He states that his breathing has worsened. I reexamined the patient's lungs. He has bibasilar crackles. 0011: Ordered Furosemide 40 mg IV and DuoNeb 3 ml INH Medical Decision This is a 67-year-old male who presents with shortness breath and cold symptoms. Differential diagnosis includes bronchitis, pneumonia, CHF exacerbation, pulmonary edema, influenza. I did perform a limited focused review of portions of the patient's old chart on the electronic medical record. The patient has had no recent pertinent visits to this hospital. I did evaluate the patient as noted above. IV access was established. The patient was placed on a continuous cardiac monitor technician. I did order and personally review the patient's 12-lead EKG and chest x-ray as described above. The patient has an abnormal EKG but no acute changes since his prior EKG. His chest x-ray did show some congestive changes consistent with CHF. No acute pneumonia was noted. I did order and review the patient's blood work as noted in the electronic medical record. Troponin is negative. His BNP is elevated. Flu testing is negative. I did reassess patient. He states now he has worsening shortness of breath. He also complains of some chest tightness and pressure which he also said he had earlier today. I did treat him with a DuoNeb and Lasix IV. I did reassess patient. The patient states his chest discomfort is completely resolved. He did urinate significantly. He is feeling better overall. He does have a history of 4 MIs and ischemic cardiomyopathy. Because of his symptoms I did feel he should be hospitalized for repeat cardiac enzymes and further evaluation. I did discuss case with the hospitalist and caser shoe parts. Medication Reconcilliation Current Medication List: was personally reviewed by me Blood Pressure Screening Patient's blood pressure: Elevated blood pressure Blood pressure disposition: Referred to PCP Consults Consulting Physician: Briana Returned Call: [phone] Impression Primary Impression: CHF exacerbation Additional Impression: Acute chest pain Scribe Attestation The scribe's documentation has been prepared under my direct and personally reviewed by me in its entirety. I confirm that the note above accurately reflects all work, treatment, procedures, and medical decision making performed by me. Departure Information Dispostion Being Evaluated By Hospitalist Referrals No Doctor, Assigned (PCP) Patient Instructions My [facility] Problem Qualifiers Primary Impression: CHF exacerbation Congestive heart failure type: unspecified Qualified Codes: I50.9 - Heart failure, unspecified
--- NOTE | 2017-12-17 01:30 | History and Physical ---
History & Physical Date & Time of Service: Dec 17, 2017 at 01:17 Chief Complaint: Short Of Breath Primary Care Physician: Aissatou Chin M.D. History of Present Illness Source: patient, partner 67 year old male with PMHx of paroxysmal a fib, ischemic cardiomyopathy and chronic CHF with EF of 30-35% most recent echocardiogram being 08/05, DM II uncontrolled, hyperthyroidism, diabetic retinopathy, hypertension, hyperlipidemia who presents to the ER today with complaints of dyspnea which has been ongoing for a month, but worsened acutely today. Patient began to experience flu like symptoms starting yesterday and began taking fluids more aggressively. He had an upset stomach with 4-5 episodes of emesis and a Tmax 100. In the evening, he had a coughing fit, and subsequently couldn't catch his breath, which brought him to the ED. Denies chest pain or diaphoresis. States issue with sleep involves lying on his left side. Does not wear CPAP/Bipap. Patient acknowledges he has CHF but aside from medication compliance, he is non compliant with diet and fluid intake stating "I don't look for low salt foods, but I don't add that much salt, I only sprinkle some salt. and it's sea salt. It 's never been an issue for me." He takes Lasix daily, and states for the last month, as prescribed by his addiction social worker, he takes it PRN in the evening. However, he continues to have chest tightness, trouble breathing. He says he has used Lasix more BID in the last month than in past 2 years. He denies change in exercise tolerance, swelling in the legs or abdominal swelling. He does admit to 7lb weight gain. He otherwise denies headaches, palpitations, abdominal pain, rashes. He is tolerating diet again, ambulating without exacerbating symptoms, and voiding and stooling appropriately. ROS is unremarkable except as noted above. In the ED received IV Lasix and Duonebs, and felt better after these. Past Medical/Surgical History Medical Problems: (1) Abnormal EKG Status: Resolved (2) Atrial Fibrillation Status: Resolved (3) CHF (congestive heart failure) Status: Chronic (4) CHF (congestive heart failure) Status: Chronic (5) Diab [place] Compl, Type Ii Or Unspec Type, Not Uncntrld Status: Chronic (6) Hyperglycemia Status: Resolved (7) Hyperlipidemia Nec/Nos Status: Chronic (8) Hypertension Nos Status: Chronic (9) New left bundle branch block Status: Resolved (10) Old Myocardial Infarct Status: Resolved (11) Pneumonia Status: Resolved (12) Shortness of breath Status: Resolved (13) SOB (shortness of breath) Status: Resolved Surgical Problems: (1) H/O cardiac catheterization Status: Resolved (2) H/O heart artery stent Status: Resolved (3) H/O heart bypass surgery Status: Resolved (4) Status post double vessel coronary artery bypass Status: Resolved Family History Cancer Diabetes mellitus FH ischemic heart disease Social History Smoking Status: Never Smoker Smokeless Tobacco Use: No Alcohol Use: none Drug Use: none Marital Status: in relationship Housing status: lives alone Occupational Status: employed Immunizations History of Influenza Vaccine: No History of Tetanus Vaccine?: No History of Pneumococcal: No History of Hepatitis B Vaccine: No Multi-Drug Resistant Organisms History of MDRO: No Allergies Coded Allergies: Amoxicillin (Verified Allergy, Severe, hives swelling redness lip swelling , 12/16/17) Clavulanic Acid (Verified Allergy, Severe, hypotensive shock, 12/16/17) Iodinated Diagnostic Agents (Verified Allergy, Intermediate, HIVES, ) Prednisone (Verified Allergy, Intermediate, SHORTNESS OF BREATH, 12/16/17) as per patient Home Medications Scheduled Ascorbic Acid (Ascorbic Acid), 1,000 MG PO BID B-Complex Vitamins (Vitamin B Complex), 1 TAB PO DAILY Coenzyme Q10 (Ubidecarenone) (Co Q 10), 200 MG PO DAILY Furosemide (Lasix), 40 MG PO DAILY Glipizide (Glipizide Er), 10 MG PO BID Levofloxacin (Levofloxacin), 750 MG PO DAILY@11 Losartan Potassium (Losartan Potassium), 25 MG PO DAILY Magnesium Chloride (Slow-Mag Tab), 2 TABS PO DAILY Metoprolol Tartrate (Lopressor) (Lopressor), 25 MG PO BID Metoprolol Tartrate (Lopressor) (Lopressor), 50 MG PO BID Nitroglycerin (Nitrostat), 0.4 MG UT PRN Pantoprazole (Pantoprazole Sodium), 40 MG PO BID Sucralfate (Sucralfate), 1 GM PO QID Scheduled PRN Zolpidem Tartrate (Zolpidem Tartrate), 5 MG PO HS PRN for Sleep Physical Exam Vital Signs Date Time Temp Pulse Resp B/P (MAP) Pulse Ox O2 Delivery O2 Flow Rate FiO2 12/17/17 00:19 104 18 160/84 94 Room Air 12/16/17 22:26 97 12/16/17 21:29 36.9 109 20 154/87 94 Room Air General Appearance: WD/WN, no apparent distress Head: normocephalic, atraumatic Eyes: normal inspection ENT: hearing grossly normal, pharynx normal Neck: supple, no adenopathy, no JVD Respiratory/Chest: no respiratory distress, no accessory muscle use, + decreased breath sounds (R base>L base) Cardiovascular: no murmur, normal peripheral pulses, + tachycardia Abdomen/GI: normal bowel sounds, non tender, soft Back: normal inspection, no CVA tenderness Extremities/Musculoskelatal: no calf tenderness Neurologic/Psych: alert, normal mood/affect, oriented x 3 Skin: normal color, warm/dry, no rash Lymphatic: no adenopathy Diagnostics Laboratory Results Results Past 24 Hours Test 12/16/17 22:20 Range/Units White Blood Count 8.54 4.8-10.8 K/uL Red Blood Count 4.91 4.7-6.1 M/uL Hemoglobin 15.0 14.0-18.0 g/dL Hematocrit 43.2 42-52 % Mean Corpuscular Volume 88.0 80-100 fL Mean Corpuscular Hemoglobin 30.5 25-34 pg Mean Corpuscular Hemoglobin Concent 34.7 32-36 g/dl Platelet Count 119 130-400 K/uL Mean Platelet Volume 11.8 7.4-10.4 fL Neutrophils (%) (Auto) 79.9 % Lymphocytes (%) (Auto) 7.6 % Monocytes (%) (Auto) 10.5 % Eosinophils (%) (Auto) 1.6 % Basophils (%) (Auto) 0.2 % Neutrophils # (Auto) 6.81 1.4-6.5 K/uL Lymphocytes # (Auto) 0.65 1.2-3.4 K/uL Monocytes # (Auto) 0.90 0.11-0.59 K/uL Eosinophils # (Auto) 0.14 0-0.5 K/uL Basophils # (Auto) 0.02 0-0.2 K/uL RDW Standard Deviation 42.8 36.4-46.3 fL RDW Coefficient of Variation 13.3 11.5-14.5 % Immature Granulocyte % (Auto) 0.2 % Immature Granulocyte # (Auto) 0.02 0.00-0.02 K/uL Sodium Level 136 136-145 mmol/L Potassium Level 4.0 3.5-5.1 mmol/L Chloride Level 101 98-107 mmol/L Carbon Dioxide Level 26 21-32 mmol/L Anion Gap 9.0 3-11 mmol/L Blood Urea Nitrogen 18 7-18 mg/dl Creatinine 1.19 0.60-1.40 mg/dl Est Creatinine Clear Calc Drug Dose 63.0 ml/min Estimated GFR () 73.3 Estimated GFR (Non- 63.3 BUN/Creatinine Ratio 15.5 10-20 Random Glucose 115 70-99 mg/dl Calcium Level 9.0 8.5-10.1 mg/dl Troponin I 0.017 0-0.045 ng/ml Pro-B-Type Natriuretic Peptide 3531 0-900 pg/ml Influenza Type A Antigen Neg for Influ A NEG Influenza Type B Antigen Neg for Influ B NEG Diagnostic Radiology CXR official read pending Appears to have some vascular congestion. No pleural effusions, no convincing focal consolidation Impression Assessment and Plan 67 M with PMHx of PAF, ischemic CM and chronic sCHF with EF of 30-35% most recent echocardiogram being July 2017, DM II uncontrolled, hyperthyroidism , diabetic retinopathy, HTN, HLD admitted with acute CHF exacerbation Acute on chronic CHF - IV Lasix 40mg daily - I/O, daily weight, low salt diet - Await official read of CXR. Possible RLL PNA. Procal ordered - Cardio consulted - Trend CBC, BMP CM/HTN/HLD - Serial troponin - Continue Lasix, losartan, metoprolol, atorvastatin PAF - Continue metoprolol - Patient not on anticoagulation at home DMII - last HbA1c 8.4 (08/05) - Hold glipizide - ISS with checks ac/hs Attending addendum: I have physically seen this patient, have supervised the medical residents activities, and agree with the H&P unless as otherwise noted. Assessment and Plan: Acute on chronic CHF/cardiomyopathy/hypertension/paroxysmal atrial fibrillation- - The patient will be admitted to telemetry for serial cardiac enzymes, serial EKG's, cardiac rhythm monitoring and a 2-D echocardiogram with Dopplers. Lasix 40 mg IV daily Continue losartan and metoprolol Serial BMP and magnesium levels Level of Care Telemetry Advanced Directives Existing Advance Directive: No Existing Living Will: No Existing Power of Contour Path Tape Mill Operator: Yes ( ) Existing Health Care Proxy: No Resuscitation Status FULL RESUSCITATION VTE Prophylaxis VTE Risk Assessment Done? Y/N: Yes Risk Level: Moderate Given or contraindicated: SCD's Social Service Consult None Apply Resident Tracking Resident Involvement: Resident Care Provided Care Provided: Adult Hospital Medicine
[2017-12-17] MEDS ORDERED: NITROGLYCERIN 0.4 MG SL PER TAB CHARGE UT SCH (02:45)
[2017-12-17] MEDS ORDERED: ACETAMINOPHEN 325 MG TAB PO PRN (02:45)
[2017-12-17] MEDS ORDERED: MAGNESIUM HYDROXIDE SUSP 30 ML UDC PO PRN (02:45)
[2017-12-17] MEDS ORDERED: ALUMINUM/MAGNESIUM/SIMETH (MAALOX MAX) 30 ML UDC PO PRN (02:45)
[2017-12-17] MEDS ORDERED: ONDANSETRON INJ 2 MG/ML 2 ML VIAL IV PRN (02:45)
[2017-12-17] MEDS ORDERED: POLYETHYLENE (MIRALAX) 17 GM PACK PO PRN (02:45)
[2017-12-17] MEDS ORDERED: IV FLUIDS COMPLETED PRN (03:00)
[2017-12-17] MEDS ORDERED: DEXTROSE 50% 50 ML SYR IV PRN (03:45)
[2017-12-17] MEDS ORDERED: GLUCOSE 40% GEL 15 GM TUBE PO PRN ×2 (03:45→19:15)
[2017-12-17] MEDS ORDERED: GLUCOSE 10 TABS/TUBE PO PRN ×2 (03:45→19:15)
[2017-12-17] MEDS ORDERED: GLUCAGON FOR INJ 1 MG VIAL SQ PRN ×2 (03:45→19:15)
[2017-12-17] MEDS ORDERED: CALCIUM CARBONATE 500 MG CHEWABLE PO PRN (03:45)
[2017-12-17 06:08] LABS: HEMATOCRIT 40.6 % (42-52); MEAN CELL VOLUME 87.3 fL (80-100); MEAN CORPUSCULAR HEMOGLOBIN 30.1 pg (25-34); MEAN CORPUSCULAR HGB CONC 34.5 g/dl (32-36); MEAN PLATELET VOLUME 11.9 fL (7.4-10.4); PLATELET COUNT 113 K/uL (130-400); RED CELL DISTRIBUTION WIDTH CV 13.2 % (11.5-14.5); RED CELL DISTRIBUTION WIDTH SD 42.5 fL (36.4-46.3); WHITE BLOOD COUNT 7.74 K/uL (4.8-10.8)
[2017-12-17 06:44] LABS: CALCIUM 8.6 mg/dl (8.5-10.1); CREATININE 1.14 mg/dl (0.60-1.40); POTASSIUM 3.8 mmol/L (3.5-5.1)
--- NOTE | 2017-12-17 07:10 | DIAGNOSTIC IMAGING REPORT ---
TWO VIEW CHEST CLINICAL HISTORY: Cough. FINDINGS: PA and lateral chest radiographs are compared to study dated 07/20/2017 and correlated with chest CT dated 06/01/2015. The PA view is significantly degraded by patient rotation. The patient is status post midline sternotomy. The heart is enlarged and there is atherosclerotic calcification of the thoracic aorta. The pulmonary vasculature is noncongested. Chronic interstitial thickening is similar to prior studies. No airspace consolidation is seen typical for pneumonia. No large pleural effusion is identified. There is no pneumothorax. The skeletal structures are osteopenic. Degenerative change and hyperkyphosis are noted in the thoracic spine. IMPRESSION: Cardiomegaly with no acute cardiopulmonary abnormality. Electronically signed by: Ziyad Obrien M.D. 12/17/2017 7:09 AM Dictated Date/Time: 12/17/2017 7:07 AM
[2017-12-17] MEDS: INSULIN ASPART 100 UNITS/ML 3 ML PEN SC SCH ×4 (08:06→21:00)
[2017-12-17] MEDS: LOSARTAN POTASSIUM 25 MG TAB PO SCH (08:07)
[2017-12-17] MEDS: MAGNESIUM CHLORIDE 64MG DELAYED REL TAB PO SCH (08:07)
[2017-12-17] MEDS: METOPROLOL TARTRATE 25 MG TAB PO SCH (08:07)
[2017-12-17] MEDS ORDERED: HEPARIN 25,000 UNIT/500ML D5W 500 ML IV PRN (08:15)
--- NOTE | 2017-12-17 08:29 | Hospitalist Progress Note ---
Hospitalist Progress Note Date of Service Dec 17, 2017. Subjective Pt evaluation today including: conversation w/ patient, physical exam, chart review, lab review, review of studies Pain: none PO Intake: NPO Voiding: no voiding problems The patient was seen and examined this morning. Pt reports doing well. He was seen prior to episode of bright red emesis and at that point denied any acute complaints. He has no desire to be in the hospital, and doesn't trust doctors. He also admits to being a noncompliant patient in the past and anticipated being able to leave later tonight. I visited him again after the episode of bloody emesis, and again has no complaints. Denies lightheadedness, dizziness, palpitations, flutter, cp, sob, abd pain, n/v/d/c. He wants to eat something, although understands why he's been made NPO. ROS: 6 point ROS reviewed and negative. Objective Vital Signs Date Time Temp Pulse Resp B/P (MAP) Pulse Ox O2 Delivery O2 Flow Rate FiO2 12/17/17 07:45 Room Air 12/17/17 07:41 37.2 94 18 132/71 (91) 95 Room Air 12/17/17 04:00 Room Air 12/17/17 03:15 37.2 111 20 166/83 96 Room Air 12/17/17 03:04 95 18 159/84 94 12/17/17 00:19 104 18 160/84 94 Room Air 12/16/17 22:26 97 12/16/17 21:29 36.9 109 20 154/87 94 Room Air Physical Exam General Appearance: WD/WN, no apparent distress, + thin Eyes: PERRL, EOMI ENT: hearing grossly normal, pharynx normal, + pertinent finding (MMM) Neck: supple, no JVD Respiratory/Chest: chest non-tender, lungs clear, no respiratory distress, no accessory muscle use, + pertinent finding (on RA) Cardiovascular: regular rate, rhythm, + systolic murmur Abdomen: normal bowel sounds, non tender, soft, no organomegaly Extremities: normal range of motion, non-tender, normal inspection, no pedal edema, no calf tenderness Neurologic/Psychiatric: alert, normal mood/affect, oriented x 3 Skin: normal color, warm/dry Laboratory Results Last 24 Hours Test 12/16/17 22:20 12/17/17 05:50 12/17/17 06:25 White Blood Count 8.54 K/uL 7.74 K/uL Red Blood Count 4.91 M/uL 4.65 M/uL Hemoglobin 15.0 g/dL 14.0 g/dL Hematocrit 43.2 % 40.6 % Mean Corpuscular Volume 88.0 fL 87.3 fL Mean Corpuscular Hemoglobin 30.5 pg 30.1 pg Mean Corpuscular Hemoglobin Concent 34.7 g/dl 34.5 g/dl Platelet Count 119 K/uL 113 K/uL Mean Platelet Volume 11.8 fL 11.9 fL Neutrophils (%) (Auto) 79.9 % Lymphocytes (%) (Auto) 7.6 % Monocytes (%) (Auto) 10.5 % Eosinophils (%) (Auto) 1.6 % Basophils (%) (Auto) 0.2 % Neutrophils # (Auto) 6.81 K/uL Lymphocytes # (Auto) 0.65 K/uL Monocytes # (Auto) 0.90 K/uL Eosinophils # (Auto) 0.14 K/uL Basophils # (Auto) 0.02 K/uL RDW Standard Deviation 42.8 fL 42.5 fL RDW Coefficient of Variation 13.3 % 13.2 % Immature Granulocyte % (Auto) 0.2 % Immature Granulocyte # (Auto) 0.02 K/uL Sodium Level 136 mmol/L 135 mmol/L Potassium Level 4.0 mmol/L 3.8 mmol/L Chloride Level 101 mmol/L 99 mmol/L Carbon Dioxide Level 26 mmol/L 28 mmol/L Anion Gap 9.0 mmol/L 7.0 mmol/L Blood Urea Nitrogen 18 mg/dl 26 mg/dl Creatinine 1.19 mg/dl 1.14 mg/dl Est Creatinine Clear Calc Drug Dose 63.0 ml/min 65.8 ml/min Estimated GFR () 73.3 77.2 Estimated GFR (Non- 63.3 66.6 BUN/Creatinine Ratio 15.5 22.5 Random Glucose 115 mg/dl 186 mg/dl Calcium Level 9.0 mg/dl 8.6 mg/dl Troponin I 0.017 ng/ml 0.289 ng/ml Pro-B-Type Natriuretic Peptide 3531 pg/ml Influenza Type A Antigen Neg for Influ A Influenza Type B Antigen Neg for Influ B Procalcitonin 0.09 ng/ml Bedside Glucose 179 mg/dl Assessment and Plan 67 M with PMHx of PAF, ischemic CM and chronic systolic CHF with EF of 30-35% most recent echocardiogram being 2016, DM II uncontrolled, hyperthyroidism, diabetic retinopathy, HTN, HLD admitted with acute CHF exacerbation Troponin was slightly elevated on second set this morning, so heparin gtt was starte due to his high risk nature. Pt acutely felt sick in his stomach and drank a sip or orange juice at ~11am, and acutely vomited ~500mL bright red bloody emesis with clots per nursing. In the meantime cardiology and gastroenterology were contacted and have seen the patient. He was started on a protonix gtt and NSS x 250mL bolus for hypotension with systolics in the high 70s-low 80s, heparin gtt stopped. He BP is slowly improving at this time with maintence fluids at 100 mL. Acute on chronic CHF - IV Lasix 40mg administered last night and this morning with 3200mL outs. HOLD with hypotension now. Has been started on maintenance fluids at this time. - I/O, daily weight, low salt diet - CXR completed - repeat tomorrow morning. - Pt was started on a heparin gtt this morning for elevating troponin and now off due to hematemesis - Cardiology on board Acute hematemesis - Possibly due to heparin gtt this morning, or may also be d/t vomiting (4x) and dry heaving on Sunday due to GI illness and may have harmony johnson tear. - Hgb drop from 14 to 11.4, H&H q6H - Cont Pantoprazole gtt - GI consulted - EGD encouraged however pt does not want procedure at this time. BP has slowly improved throughout the morning, consider tomorrow. - Maintain NPO status, if no procedure then GI to determine initiation of clear liquid diet. Pt likely will be more inclined to stay as he is already threatening to leave AMA. CM/HTN/HLD - Serial troponin- 0.017 -->0.289 --> 0.378 - Stop Lasix - Cont losartan 25 mg daily, metoprolol tart 25 mg BID with holding parameters, atorvastatin PAF - Continue metoprolol - Patient not on anticoagulation at home DMII - last HbA1c 8.4 (08/05) - Hold glipizide 10 mg bid - ISS with accuchecks ac/hs CKD stage II-III - Appears to be around baseline of 1.1-1.2 - Follow prp CODE STATUS: FULL DVT ppx: teds, scds, no chemical anticoagulation with GI bleed Disposition: Pt from home, no services likely to be needed. Pending GI workup if pt agreeable tomorrow.
[2017-12-17] MEDS ORDERED: HEPARIN IV BOLUS 6,000 UNIT in SYRINGE 0 ML IV ONE (08:30)
[2017-12-17 08:54] LABS: PTT PATIENT 29.2 SECONDS (21.0-31.0)
[2017-12-17] MEDS ORDERED: FUROSEMIDE INJ 40 MG in SYRINGE 0 ML IV SCH (09:00)
--- NOTE | 2017-12-17 09:44 | Cardiology Consultation ---
Cardiology Consultation Date of Service Dec 17, 2017. (Kim Rodriguez PA-C) Cardiology Consultation Requesting Provider: Attending Assistant Construction Superintendent: Re: CHF; History of ischemic cardiomyopathy SUBJECTIVE: Enmanuel Cook is a 67 year old male, who is known to [facility] and followed intermittently with Dr. Landa/Michael Moon PA-C. He has a long history of non compliance to medications, recommendations and appointments per review of medical records. Brief history includes prior CABGx2 in 2005, ischemic cardiomyopathy with LVEF 30-35%, patient declining ICD therapy per past notes, history of recent cardiac cath at [facility] in 08/2017 ( described below) med management recommended, history of paroxysmal atrial fibrillation, patient declining anticoagulation therapy and ASA therapy, history of hypertension, dyslipidemia (declining statin therapy), intermittent LBBB, mitral regurgitation various degrees pending fluid status (mild to severe) , history of pericardial effusion, resolved per repeat echo. Other history includes DM with non compliance, resulting in significant ulcerations of toes with osteomyelitis and amputations in August 2017. Patient reports 1 week of worsening SOB, particularly with exertion, associated with abdominal bloating, cough and weight gain of 5-7 lbs. He took additional furosemide 40 mg in the evening on several days without much improvement. Sunday he felt he came down with "flu" (negative testing in ER) and had low grade fever with several episodes of vomiting. Symptoms resolved on Sunday. However last evening patient developed worsening SOB with coughing fits and had trouble catching his breath. He then came to ER for evaluation. BNP elevated consistent with CHF. Chest xray with possible mild congestion. No pleural effusions. BP elevated. Treated with IV furosemide and DuoNeb with improvement in his symptoms. EKG demonstrated incomplete LBBB without acute changes. Initial troponin negative. Repeat troponin early AM, borderline elevated at 0.2. He was started on IV heparin by hospitalist. Repeat troponin pending to be drawn around 11:00 AM. Patient declines repeat echo, unless levels rise. At time of consult, patinet feeling better. SOB improved. Cough improved. Denies chest pain or LE edema. No orthopnea, PND. No dizziness, syncope or near syncope. He admits to not monitoring salt/sodium intake at home. He is anxious for discharge, as he has "more important things to do". He denies acute complaints at this time. Review Of Systems: See above for pertinent positives & negatives. A total of 10 systems reviewed and were otherwise negative. Prior History: 1. Coronary artery disease status post CABG and multiple PCIs to the ramus afterwards. CABG transpired on 08/06/2006, off pump CABG x2 using HAWKINS-LAD, and reverse saphenous vein graft to the obtuse marginal by Dr. Gaston Tovar 2. August 30, 2017 Diagnostic Cardiac Catheterization ([facility], Dr. Casper) : LAD 100% but HAWKINS=>LAD is without focal stenosis; LCxOM1 100% and SVG=>OM 100% ; RCA 100% and fills by collaterals FFR of HAWKINS=>LAD shows mild kink in HAWKINS which is NOT significant by FFR testing. However, when FFR is measured distal to the HAWKINS-LAD anastomosis, it registers very significantly abnormal. However, no focal lesion can be seen at the anastomosis or anywhere in the LAD. We conclude that multiple small lesions, not angiographically apparent, in sequence are enough to render the distal LAD territory ischemic.There are no targets for PCI. LVEDP = 30 3. Ischemic cardiomyopathy. EF 30-34%. 4. Transient left bundle branch block. 5. History of severe mitral regurgitation, improved with medical therapy. 6. History of pericardial effusion. 7. Paroxysmal atrial fibrillation, not on Coumadin per patient preference. 8. Diabetes. 9. Hypertension. 10. Hyperlipidemia. 11. Noncompliance. Past Surgical History: Procedure Laterality Date BYPASS GRAFT ANGIOGRAPHY W/LEFT HEART CATH Right 11/09/2014 BYPASS GRAFT ANGIOGRAPHY W/LEFT HEART CATH performed by Christiano Merchant DO at [facility] CORONARY ANGIOGRAPHY W/LEFT HEART CATH 06/03/2015 CORONARY ANGIOGRAPHY W/LEFT HEART CATH performed by Jonnathan Casper MD at [facility] CORONARY ANGIOGRAPHY W/LEFT HEART CATH 08/31/2017 CORONARY ANGIOGRAPHY W/LEFT HEART CATH performed by Jonnathan Casper MD at [facility] CORONARY ARTERIES BYPASS, TWO LASER TRABECULOPLASTY OU, Dr. Young numerous times PLUG TEAR DUCT OPENING 2010 both eyes-Dr. Young REMOVE TONSILS & ADENOIDS, AGE 13+ Multiple toe amputations on right foot - August 2017 Family History: Noncontributory. Brother with premature CAD. Mother with breast cancer. Father was an alcoholic. Social History: No significant alcohol. No current tobacco use. No illegal drug use. [place]. Lives alone. No children. Has significant other, , for 30+ years. Review of patient's allergies indicates: Allergen Reactions Prednisone Amoxicillin Other (Please comment) Hypotensive shock Clavulanic Acid Iodine Hives Current Outpatient Prescriptions Reported Home Medications Medications Dose Route/Sig Max Daily Dose Days Date Category Sildenafil (Sildenafil Citrate (Pulmonary) 20 Mg Tab 20-40 Mg PO DIRECTED PRN 12/16/17 Reported Co Q 10 (Coenzyme Q10 (Ubidecarenone)) 100 Mg Cap 200 Mg PO DAILY 12/16/17 Reported Slow-Mag Tab (Magnesium Chloride) 64 Mg Tabcr 2 Tabs PO DAILY 12/16/17 Reported Losartan Potassium 25 Mg Tab 25 Mg PO DAILY 12/16/17 Reported Nitrostat (Nitroglycerin) 0.4 Mg Sub 0.4 Mg UT PRN 08/10/17 Reported Vitamin B Complex (B-Complex Vitamins) 1 Tab Tab 1 Tab PO DAILY 08/10/17 Reported Ascorbic Acid 1,000 Mg Tab 1,000 Mg PO BID 08/10/17 Reported Glipizide Er (Glipizide) 10 Mg Tab 10 Mg PO BID 08/10/17 Reported Lasix (Furosemide) 40 Mg Tab 40 Mg PO DAILY 09/21/15 Reported Lopressor (Metoprolol Tartrate) 25 Mg Tab 25 Mg PO BID 09/21/15 Reported OBJECTIVE/PHYSICAL EXAMINATION: Last 8 Hrs Date Time Temp Pulse Resp B/P (MAP) Pulse Ox O2 Delivery O2 Flow Rate FiO2 12/17/17 07:45 Room Air 12/17/17 07:41 37.2 94 18 132/71 (91) 95 Room Air 12/17/17 04:00 Room Air 12/17/17 03:15 37.2 111 20 166/83 96 Room Air 12/17/17 03:04 95 18 159/84 94 General: A&Ox3. NAD. HEENT: Normocephalic. Atraumatic. PER. Conjunctiva pink, sclera clear. No carotid bruits. No JVD. No HJR. Heart: Regular. No audible murmurs. No rub. No gallop. PMI is nondisplaced. Lungs: Clear to auscultation. Abdomen: +BS. Extremities: No significant edema b/l. Limited neurological examination is without focal deficits. Data this Admission: EKG on admission: Normal sinus rhythm QRS widening consistent with incomplete LBBB Possible Left atrial enlargement Possible Anterior infarct (cited on or before 21-JUL-2017) ST & T wave abnormality, consider lateral ischemia No significant changes from prior EKG's. Chest xray on admission: IMPRESSION: Cardiomegaly with no acute cardiopulmonary abnormality. Labs Last 24 Hours Test 12/16/17 22:20 12/17/17 05:50 12/17/17 06:25 12/17/17 08:34 White Blood Count 8.54 K/uL 7.74 K/uL Red Blood Count 4.91 M/uL 4.65 M/uL Hemoglobin 15.0 g/dL 14.0 g/dL Hematocrit 43.2 % 40.6 % Mean Corpuscular Volume 88.0 fL 87.3 fL Mean Corpuscular Hemoglobin 30.5 pg 30.1 pg Mean Corpuscular Hemoglobin Concent 34.7 g/dl 34.5 g/dl Platelet Count 119 K/uL 113 K/uL Mean Platelet Volume 11.8 fL 11.9 fL Neutrophils (%) (Auto) 79.9 % Lymphocytes (%) (Auto) 7.6 % Monocytes (%) (Auto) 10.5 % Eosinophils (%) (Auto) 1.6 % Basophils (%) (Auto) 0.2 % Neutrophils # (Auto) 6.81 K/uL Lymphocytes # (Auto) 0.65 K/uL Monocytes # (Auto) 0.90 K/uL Eosinophils # (Auto) 0.14 K/uL Basophils # (Auto) 0.02 K/uL RDW Standard Deviation 42.8 fL 42.5 fL RDW Coefficient of Variation 13.3 % 13.2 % Immature Granulocyte % (Auto) 0.2 % Immature Granulocyte # (Auto) 0.02 K/uL Sodium Level 136 mmol/L 135 mmol/L Potassium Level 4.0 mmol/L 3.8 mmol/L Chloride Level 101 mmol/L 99 mmol/L Carbon Dioxide Level 26 mmol/L 28 mmol/L Anion Gap 9.0 mmol/L 7.0 mmol/L Blood Urea Nitrogen 18 mg/dl 26 mg/dl Creatinine 1.19 mg/dl 1.14 mg/dl Est Creatinine Clear Calc Drug Dose 63.0 ml/min 65.8 ml/min Estimated GFR () 73.3 77.2 Estimated GFR (Non- 63.3 66.6 BUN/Creatinine Ratio 15.5 22.5 Random Glucose 115 mg/dl 186 mg/dl Calcium Level 9.0 mg/dl 8.6 mg/dl Troponin I 0.017 ng/ml 0.289 ng/ml Pro-B-Type Natriuretic Peptide 3531 pg/ml Influenza Type A Antigen Neg for Influ A Influenza Type B Antigen Neg for Influ B Procalcitonin 0.09 ng/ml Bedside Glucose 179 mg/dl Prior Data: July 21, 2017 TTE Interpretation Summary ([facility], Dr. Landa): Compared to previous study of 03/08/17: No cardiac change but now with presence of possible hepatic lesion. Mildly dialted LV chamber size with normal wall thickness of the anterior and anterolateral gauthier, significant thinning of all other wall segements. Moderately reduced LV systolic function, EF 30-35%. There is a large size inferior, posterior, and septal myocardial infarction with severe hypokinesis to akinesis of the segments. Grade II diastolic dysfunction. Moderate aortic valve sclerosis without stenosis. Mild to moderate mitral regurgitation. Moderate left atrial enlargement. Medium sized area of echolucency either intrahepatic or immediately adjacent. Recommend CT of abdomen to further evaluate. August 30, 2017 Diagnostic Cardiac Catheterization ([facility], Dr. Casper): LAD 100% but HAWKINS=>LAD is without focal stenosis; LCxOM1 100% and SVG=>OM 100%; RCA 100% and fills by collaterals FFR of HAWKINS=>LAD shows mild kink in HAWKINS which is NOT significant by FFR testing. However, when FFR is measured distal to the HAWKINS -LAD anastomosis, it registers very significantly abnormal. However, no focal lesion can be seen at the anastomosis or anywhere in the LAD. We conclude that multiple small lesions, not angiographically apparent, in sequence are enough to render the distal LAD territory ischemic.There are no targets for PCI. LVEDP = 30 Liver US completed Jul 2017: IMPRESSION: 1. Cholelithiasis and gallbladder sludge remonstrated without sonographic evidence of acute cholecystitis. 2. No biliary ductal dilation. 3. Mildly echogenic appearance of the liver suggests fatty infiltration without focal mass identified. ASSESSMENT: 1. Acute on chronic decompensated systolic HF, improving this AM after IV diuretics. 2. Mildly elevated troponin, at 0.2, consistent with CHF exacerbation and underlying cardiomyopathy. Not indicative of ACS but will await repeat. 3. History of Coronary artery disease, ischemic cardiomyopathy LVEF 30-35% per echo in 07/2017. 4. Hypertension - improved with diuresis 5. Paroxysmal afib - Currently NSR. Patient declines anticoagulation therapy 6. Longstanding noncompliance with medication and recommendations. PLAN: Symptoms improving. Patient declines ASA therapy. Currently receiving IV heparin, started by hospitalist, after repeat troponin at 0.2. Repeat pending at 11:00 AM. If levels stable, discontinue heparin. Patient declines echocardiogram, unless repeat troponin has trended higher. Otherwise would recommend continuing metoprolol, losartan and IV furosemide for now. Transition to oral furosemide on discharge. Will continue furosemide 40 mg for now. Case discussed with Dr. Pulido. Will follow. (Kim Rodriguez PA-C) CARDIOLOGY ATTENDING ADDENDUM: The patient was seen and personally examined. Agree with Kim Rodriguez PA-C's findings and plans as documented above. Pt. wants to eat. No active chest pain. Elevated trop. post admission likely to be demand ischemia. Ok to feed the patient until next trop back. Also, if next trop is the same or improved, can D/C heparin drip. Pt. is a difficult patient and often does not want anything done. (Moody Pulido, DO)
[2017-12-17] MEDS ORDERED: NURSING VERBAL MED ORDER ONE ×2 (11:05→12:00)
[2017-12-17] MEDS ORDERED: SODIUM CHLORIDE 0.9% 250ML 250 ML IV ONE (12:15)
--- NOTE | 2017-12-17 12:22 | Progress Note ---
Progress Note Date of Service Dec 17, 2017. Progress Note Early afternoon, the patient called the nurse. He said he did not feel well. He then vomited bright red blood, according to the nurses approximately 500 mL. His blood pressure initially was 90/70. He does not appear to be uncomfortable. His heparin has been stopped. He will receive an IV fluid bolus. He will be started on maintenance IV and made nothing by mouth. A stat CBC has been ordered. He will be given IV Protonix. Consultation has been asked with the GI service. If he does not respond to IV fluids and stopping the heparin that he may have to be transferred to the ICU.
[2017-12-17 12:28] LABS: BASO % 0.2 %; BASO ABS # 0.02 K/uL (0-0.2); EOS % 0.6 %; EOS ABS # 0.05 K/uL (0-0.5); HEMOGLOBIN 11.4 g/dL (14.0-18.0); IG# 0.02 K/uL (0.00-0.02); LYMPH % 12.8 %; LYMPH ABS # 1.07 K/uL (1.2-3.4); MEAN CELL VOLUME 87.6 fL (80-100); MEAN CORPUSCULAR HEMOGLOBIN 29.4 pg (25-34); MEAN PLATELET VOLUME 11.9 fL (7.4-10.4); MONO % 9.7 %; MONO ABS # 0.81 K/uL (0.11-0.59); NEUT % 76.5 %; NEUT ABS # 6.38 K/uL (1.4-6.5); PLATELET COUNT 118 K/uL (130-400); RED CELL DISTRIBUTION WIDTH CV 13.4 % (11.5-14.5); WHITE BLOOD COUNT 8.35 K/uL (4.8-10.8)
[2017-12-17 12:31] LABS: MEAN CORPUSCULAR HGB CONC 33.5 g/dl (32-36)
--- NOTE | 2017-12-17 12:36 | Progress Note ---
Progress Note Date of Service Dec 17, 2017. Progress Note Urgent consult placed for hematemesis. I have seen and examined the patient with NICOLE Best whose note will follow. I agree with her findings and plan. Patient with known ischemic cardiomyopathy and CAD being managed medically. Patient very non-compliant with physician recommendations for medications, etc. See outpatient and inpatient cardiology notes. Admitted with dyspnea pn exertion. Found to have elevated troponin. Increasing. Started on Heparin gtt around 8:30 this AM. told nurse he did not feel well around 11Am and then vomited bright red blood. Patient noted to be hypotensive with SBP in the 70' s. Received IV bolus. Patient angry. Does not want to be in the hospital any later than this evening. Tells me he is going home. Does not want anything done. Patient currently NPO. Not happy about this. Denies any abd pain. Last BM was yesterday. Recommend: - NPO - PPI gtt. Contacted pharmacy to send STAT. - Resuscitation per primary service. - He is very high risk for anesthesia given cardiac history and increasing troponin. he is currently refusing endoscopy. If he changes his mind, will need to be evaluated by anesthesia before proceeding with an EGD.
[2017-12-17] MEDS ORDERED: PANTOprazole INJ 80 MG in DEXTROSE 5% 100ML IV ONE (12:45)
[2017-12-17] MEDS: PANTOprazole INJ 40 MG in DEXTROSE 5% 100ML IV SCH ×3 (12:49→22:26)
[2017-12-17] MEDS: SODIUM CHLORIDE 0.9% 1000ML 1,000 ML IV SCH ×3 (12:54→23:15)
--- NOTE | 2017-12-17 12:54 | Gastrointestinal Consultation ---
Gastrointestinal Consultation Date of Consultation: Dec 17, 2017 Attending Physician: Moody Pulido Consulting Physician: Michelle Garcia Reason for Consultation: Hematemesis History of Present Illness Patient is a 67 year old male w PMHx of paroxysmal a fib, ischemic cardiomyopathy and chronic CHF with EF of 30-35% most recent echocardiogram being 08/05, DM II uncontrolled, hyperthyroidism, diabetic retinopathy, hypertension, hyperlipidemia who presents to the ER today complaints of dyspnea progressively worse over the last month. He's also been c/o flu like symptoms, GI upset, w coughing, nausea, vomiting during the weekend, febrile up to 100F. Flu swab negative, CXR showed cardiomegaly w/o acute processes. Labs showed normal CBC, CMP showed initially normal troponin but repeat showed it's increasing. EKG showed LBBB (chronic). He's been evaluated by Cardiology. He's been non compliant w several meds/treatments in the past including refusing anticoagulants for Afib. He was started on Heparin gtt this AM and started to have hematemesis of about 600ml. SBP down to 60s. Hgb dropped from 15 to 11. Past Medical/Surgical History Medical Problems: (1) Abscess of right foot including toes Status: Acute (2) Acute chest pain Status: Acute (3) DANIEL (acute kidney injury) Status: Acute (4) Cellulitis Status: Acute (5) CHF exacerbation Status: Acute (6) Dehydration Status: Acute (7) Diabetic foot infection Status: Acute (8) Elevated troponin Status: Acute (9) Leukocytosis Status: Acute (10) Lymphangitis, acute, lower leg Status: Acute (11) Sepsis Status: Acute Past Medical History: Past Medical Medical Problems: (1) Abnormal EKG Past Surgical History: Surgical Problems: (1) H/O cardiac catheterization Status: Resolved (2) H/O heart artery stent Status: Resolved (3) H/O heart bypass surgery Status: Resolved (4) Status post double vessel coronary artery bypass Status: Resolved Family History Cancer Diabetes mellitus FH ischemic heart disease Social History Smoking Status: Unknown if Ever Smoked Alcohol Use: none Drug Use: none Marital Status: in relationship Housing Status: lives alone Occupation Status: employed Allergies Coded Allergies: Amoxicillin (Verified Allergy, Severe, hives swelling redness lip swelling , 12/16/17) Clavulanic Acid (Verified Allergy, Severe, hypotensive shock, 12/16/17) Iodinated Diagnostic Agents (Verified Allergy, Intermediate, HIVES, ) Prednisone (Verified Allergy, Intermediate, SHORTNESS OF BREATH, 12/16/17) as per patient Current Medications Home Meds and Scripts Medications Dose Route/Sig Max Daily Dose Days Date Category Sildenafil (Sildenafil Citrate (Pulmonary) 20 Mg Tab 20-40 Mg PO DIRECTED PRN 12/16/17 Reported Co Q 10 (Coenzyme Q10 (Ubidecarenone)) 100 Mg Cap 200 Mg PO DAILY 12/16/17 Reported Slow-Mag Tab (Magnesium Chloride) 64 Mg Tabcr 2 Tabs PO DAILY 12/16/17 Reported Losartan Potassium 25 Mg Tab 25 Mg PO DAILY 12/16/17 Reported Nitrostat (Nitroglycerin) 0.4 Mg Sub 0.4 Mg UT PRN 08/10/17 Reported Vitamin B Complex (B-Complex Vitamins) 1 Tab Tab 1 Tab PO DAILY 08/10/17 Reported Ascorbic Acid 1,000 Mg Tab 1,000 Mg PO BID 08/10/17 Reported Glipizide Er (Glipizide) 10 Mg Tab 10 Mg PO BID 08/10/17 Reported Lasix (Furosemide) 40 Mg Tab 40 Mg PO DAILY 09/21/15 Reported Lopressor (Metoprolol Tartrate) 25 Mg Tab 25 Mg PO BID 09/21/15 Reported Review of Systems Constitutional: No fever, No chills Respiratory: No cough, No shortness of breath Cardiac: No chest pain Abdomen: + nausea, + vomiting, + GI bleeding, No pain Physical Exam Date Time Temp Pulse Resp B/P (MAP) Pulse Ox O2 Delivery O2 Flow Rate FiO2 12/17/17 10:45 37.0 78 18 99/61 (74) 98 Room Air 12/17/17 07:45 Room Air 12/17/17 07:41 37.2 94 18 132/71 (91) 95 Room Air 12/17/17 04:00 Room Air 12/17/17 03:15 37.2 111 20 166/83 96 Room Air 12/17/17 03:04 95 18 159/84 94 12/17/17 00:19 104 18 160/84 94 Room Air 12/16/17 22:26 97 12/16/17 21:29 36.9 109 20 154/87 94 Room Air General Appearance: WD/WN, no apparent distress Eyes: normal inspection, PERRL, EOMI Neck: supple, no JVD, trachea midline Respiratory/Chest: normal breath sounds, no respiratory distress, no accessory muscle use Cardiovascular: regular rate, rhythm, no gallop, no murmur Abdomen: normal bowel sounds, non tender, soft Neurologic/Psych: alert, normal mood/affect, oriented x 3 Skin: normal color, no jaundice, no rash Laboratory Results Last 24 Hours Test 12/16/17 22:20 12/17/17 05:50 12/17/17 06:25 12/17/17 08:34 White Blood Count 8.54 K/uL 7.74 K/uL Red Blood Count 4.91 M/uL 4.65 M/uL Hemoglobin 15.0 g/dL 14.0 g/dL Hematocrit 43.2 % 40.6 % Mean Corpuscular Volume 88.0 fL 87.3 fL Mean Corpuscular Hemoglobin 30.5 pg 30.1 pg Mean Corpuscular Hemoglobin Concent 34.7 g/dl 34.5 g/dl Platelet Count 119 K/uL 113 K/uL Mean Platelet Volume 11.8 fL 11.9 fL Neutrophils (%) (Auto) 79.9 % Lymphocytes (%) (Auto) 7.6 % Monocytes (%) (Auto) 10.5 % Eosinophils (%) (Auto) 1.6 % Basophils (%) (Auto) 0.2 % Neutrophils # (Auto) 6.81 K/uL Lymphocytes # (Auto) 0.65 K/uL Monocytes # (Auto) 0.90 K/uL Eosinophils # (Auto) 0.14 K/uL Basophils # (Auto) 0.02 K/uL RDW Standard Deviation 42.8 fL 42.5 fL RDW Coefficient of Variation 13.3 % 13.2 % Immature Granulocyte % (Auto) 0.2 % Immature Granulocyte # (Auto) 0.02 K/uL Sodium Level 136 mmol/L 135 mmol/L Potassium Level 4.0 mmol/L 3.8 mmol/L Chloride Level 101 mmol/L 99 mmol/L Carbon Dioxide Level 26 mmol/L 28 mmol/L Anion Gap 9.0 mmol/L 7.0 mmol/L Blood Urea Nitrogen 18 mg/dl 26 mg/dl Creatinine 1.19 mg/dl 1.14 mg/dl Est Creatinine Clear Calc Drug Dose 63.0 ml/min 65.8 ml/min Estimated GFR () 73.3 77.2 Estimated GFR (Non- 63.3 66.6 BUN/Creatinine Ratio 15.5 22.5 Random Glucose 115 mg/dl 186 mg/dl Calcium Level 9.0 mg/dl 8.6 mg/dl Troponin I 0.017 ng/ml 0.289 ng/ml Pro-B-Type Natriuretic Peptide 3531 pg/ml Influenza Type A Antigen Neg for Influ A Influenza Type B Antigen Neg for Influ B Procalcitonin 0.09 ng/ml Bedside Glucose 179 mg/dl Prothrombin Time 10.7 SECONDS Prothromb Time International Ratio 1.0 Activated Partial Thromboplast Time 29.2 SECONDS Partial Thromboplastin Ratio 1.1 Test 12/17/17 10:18 12/17/17 10:57 12/17/17 12:17 Troponin I 0.378 ng/ml Bedside Glucose 145 mg/dl White Blood Count 8.35 K/uL Red Blood Count 3.88 M/uL Hemoglobin 11.4 g/dL Hematocrit 34.0 % Mean Corpuscular Volume 87.6 fL Mean Corpuscular Hemoglobin 29.4 pg Mean Corpuscular Hemoglobin Concent 33.5 g/dl Platelet Count 118 K/uL Mean Platelet Volume 11.9 fL Neutrophils (%) (Auto) 76.5 % Lymphocytes (%) (Auto) 12.8 % Monocytes (%) (Auto) 9.7 % Eosinophils (%) (Auto) 0.6 % Basophils (%) (Auto) 0.2 % Neutrophils # (Auto) 6.38 K/uL Lymphocytes # (Auto) 1.07 K/uL Monocytes # (Auto) 0.81 K/uL Eosinophils # (Auto) 0.05 K/uL Basophils # (Auto) 0.02 K/uL RDW Standard Deviation 43.0 fL RDW Coefficient of Variation 13.4 % Immature Granulocyte % (Auto) 0.2 % Immature Granulocyte # (Auto) 0.02 K/uL Impression Patient is a 67 year old male urgently seen for hematemesis after Heparin gtt started this AM. He has significant medical hx of CAD, ischemic cardiomyopathy, Afib. Currently SBP running in 70s. Suspected bleeding PUD or Amna Junior tear given hx of n/v over the weekend. He's however refusing EGD evaluation and plans on leaving the hospital by end of the day. Plan - Keep NPO - PPI bolus and gtt - Monitor H/H. - IVF resuscitation. - Currently hemodynamically unstable for anesthesia for EGD eval, and pt is also refusing procedure. Will monitor and if VS stable and pt agreeable, will plan on EGD eval after anesthesia evaluation. See mynote from same date and link to this note.
[2017-12-17 15:10] LABS: PTT PATIENT 29.7 SECONDS (21.0-31.0)
--- NOTE | 2017-12-17 15:43 | Critical Care Consultation ---
Critical Care Consultation Date of Consultation: Dec 17, 2017. Attending Physician: Bright Carrillo MD, PhD Reason for Consultation: Hypotension, hematemesis, history of heparin infusion secondary to concern for ACS History of Present Illness Patient is a 67-year-old male who presented to the emergency department on December 16 for persistent coughing and dyspnea. While in the emergency department he was noted to have worsening dyspnea, he was given a DuoNeb and Lasix. Slot the patient would benefit from further cardiac evaluation. It is noted in the chart there is a question of the patient's compliance. It appears that he does engage in dietary indiscretion, and a history of noncompliance. He reportedly had a 7 pound weight gain however he takes his Lasix as needed. His last echocardiogram was noted to have an EF of 30-35%, poorly controlled type 2 diabetes for which she takes glipizide no insulin use. Overnight he was noted to have a bright red hematemesis. Hospitalist notes that he has no desire to be in the hospital and doesn't trust physicians. He admits to being noncompliant patient. Cardiology has been consult did, I reviewed their notes. His troponins continue to increase. Cardiology was recommending his heparin infusion be stopped later today. After the hematemesis the patient has been evaluated by gastroenterology, patient reportedly declined any intervention at this time he's been started on a PPI infusion. During my evaluation the patient was pleasant, stated he was hungry, denied chest pain or shortness of breath. Family History Cancer Diabetes mellitus FH ischemic heart disease Social History Smoking Status: Unknown if Ever Smoked Alcohol Use: none (history of alcoholism runs in his family) Drug Use: none Marital Status: in relationship Housing Status: lives alone Occupation Status: employed Allergies Coded Allergies: Amoxicillin (Verified Allergy, Severe, hives swelling redness lip swelling , 12/16/17) Clavulanic Acid (Verified Allergy, Severe, hypotensive shock, 12/16/17) Iodinated Diagnostic Agents (Verified Allergy, Intermediate, HIVES, ) Prednisone (Verified Allergy, Intermediate, SHORTNESS OF BREATH, 12/16/17) as per patient Home Medications Scheduled Ascorbic Acid (Ascorbic Acid), 1,000 MG PO BID B-Complex Vitamins (Vitamin B Complex), 1 TAB PO DAILY Coenzyme Q10 (Ubidecarenone) (Co Q 10), 200 MG PO DAILY Furosemide (Lasix), 40 MG PO DAILY Glipizide (Glipizide Er), 10 MG PO BID Losartan Potassium (Losartan Potassium), 25 MG PO DAILY Magnesium Chloride (Slow-Mag Tab), 2 TABS PO DAILY Metoprolol Tartrate (Lopressor) (Lopressor), 25 MG PO BID Nitroglycerin (Nitrostat), 0.4 MG UT PRN Scheduled PRN Sildenafil Citrate (Pulmonary (Sildenafil), 20-40 MG PO DIRECTED PRN for SEXUAL INTERCOURSE Current Inpatient Medications Current Inpatient Medications Medications (Trade) Dose Ordered Sig/[place] Route Start Time Stop Time Status Last Admin Dose Admin Acetaminophen (Tylenol Tab) 650 mg Q4H PRN PO 12/17/17 02:45 01/16/18 02:44 Al Hydrox/Mg Hydrox/Simethicone (Maalox Max Susp) 15 ml Q4H PRN PO 12/17/17 02:45 01/16/18 02:44 Magnesium Hydroxide (Milk Of Magnesia Susp) 30 ml Q12H PRN PO 12/17/17 02:45 01/16/18 02:44 Ondansetron HCl (Zofran Inj) 4 mg Q6H PRN IV 12/17/17 02:45 01/16/18 02:44 12/17/17 11:05 4 MG Polyethylene (Miralax Powder Packet) 17 gm DAILY PRN PO 12/17/17 02:45 01/16/18 02:44 Losartan Potassium (coZAAR TAB) 25 mg DAILY PO 12/17/17 09:00 01/16/18 08:59 12/17/17 08:07 25 MG Magnesium Chloride (Slow-Mag Tab) 128 mg DAILY PO 12/17/17 09:00 01/16/18 08:59 12/17/17 08:07 128 MG Metoprolol Tartrate (Lopressor Tab) 25 mg BID PO 12/17/17 09:00 01/16/18 08:59 12/17/17 08:07 25 MG Nitroglycerin (Nitrostat Tab) 0.4 mg PRN UT 12/17/17 02:45 01/16/18 02:44 Glucagon (Glucagon Inj) 1 mg UD PRN SQ 12/17/17 19:15 01/16/18 19:14 Glucose (Glucose 40% Gel) 15-30 GRAMS 15 GRAMS... UD PRN PO 12/17/17 19:15 01/16/18 19:14 Glucose (Glucose Chew Tab) 4-8 Tablets 4 Tabl... UD PRN PO 12/17/17 19:15 01/16/18 19:14 Insulin Aspart (novoLOG ASPART) SLIDING SCALE If C... ACHS SC 12/17/17 07:00 01/16/18 06:59 12/17/17 08:06 2 UNITS Miscellaneous (Iv Fluids Completed) 1 ea PRN PRN N/A 12/17/17 03:00 12/17/18 02:59 Calcium Carbonate (Tums Chew Tab) 500 mg Q8H PRN PO 12/17/17 03:45 01/16/18 03:44 Sodium Chloride 1,000 ml @ 200 mls/hr Q5H IV 12/17/17 12:30 01/16/18 12:29 12/17/17 12:54 100 MLS/HR Pantoprazole Sodium 40 mg/ Dextrose 100 ml @ 20 mls/hr Q5H IV 12/17/17 13:00 01/16/18 12:59 12/17/17 12:49 20 MLS/HR Review of Systems Constitutional: No fever, No chills, No sweats, No weight loss, No weakness, No fatigue, No problem reported Respiratory: No cough, No sputum, No wheezing, No shortness of breath, No dyspnea on exertion, No dyspnea at rest Abdomen: + nausea, + vomiting, + GI bleeding (no prior history of ulcers), No pain, No diarrhea Musculoskeletal: No joint pain, No muscle pain, No swelling, No calf pain, No problem reported Neurologic: No memory loss, No paralysis, No weakness, No numbness/tingling, No vertigo, No balance problems, No problem reported Physical Exam Date Time Temp Pulse Resp B/P (MAP) Pulse Ox O2 Delivery O2 Flow Rate FiO2 12/17/17 14:31 89 87/54 (65) 12/17/17 14:14 80 77/49 (58) 74/42 (53) 12/17/17 13:51 89 74/48 (57) 12/17/17 12:58 88 83/51 (62) 12/17/17 12:58 88 83/51 (62) 12/17/17 12:14 80 78/36 (50) 12/17/17 12:00 Room Air 12/17/17 12:00 83 77/34 (48) 12/17/17 11:40 80 71/34 (46) 66/36 (46) 12/17/17 11:05 77 91/58 (69) 12/17/17 10:45 37.0 78 18 99/61 (74) 98 Room Air 12/17/17 07:45 Room Air 12/17/17 07:41 37.2 94 18 132/71 (91) 95 Room Air 12/17/17 04:00 Room Air 12/17/17 03:15 37.2 111 20 166/83 96 Room Air 12/17/17 03:04 95 18 159/84 94 12/17/17 00:19 104 18 160/84 94 Room Air 12/16/17 22:26 97 12/16/17 21:29 36.9 109 20 154/87 94 Room Air General Appearance: well-appearing Head: normocephalic, atraumatic Eyes: PERRLA Neck: normal range of motion, no tenderness, trachea midline Respiratory: breath sounds normal, clear to auscultation, no respiratory distress Cardiovasular: regular rate/rhythm, normal S1S2, no M/G/R, no gallop, no rub, no JVD Abdomen: non tender, no masses, no guarding, no organomegaly, hypoactive bowel sounds Upper Extremities: no edema Lower Extremities: no edema Neuro: alert, oriented x 3, normal motor exam Psychiatric: normal affect Laboratory Results Last 24 Hours Test 12/16/17 22:20 12/17/17 05:50 12/17/17 06:25 12/17/17 08:34 White Blood Count 8.54 K/uL 7.74 K/uL Red Blood Count 4.91 M/uL 4.65 M/uL Hemoglobin 15.0 g/dL 14.0 g/dL Hematocrit 43.2 % 40.6 % Mean Corpuscular Volume 88.0 fL 87.3 fL Mean Corpuscular Hemoglobin 30.5 pg 30.1 pg Mean Corpuscular Hemoglobin Concent 34.7 g/dl 34.5 g/dl Platelet Count 119 K/uL 113 K/uL Mean Platelet Volume 11.8 fL 11.9 fL Neutrophils (%) (Auto) 79.9 % Lymphocytes (%) (Auto) 7.6 % Monocytes (%) (Auto) 10.5 % Eosinophils (%) (Auto) 1.6 % Basophils (%) (Auto) 0.2 % Neutrophils # (Auto) 6.81 K/uL Lymphocytes # (Auto) 0.65 K/uL Monocytes # (Auto) 0.90 K/uL Eosinophils # (Auto) 0.14 K/uL Basophils # (Auto) 0.02 K/uL RDW Standard Deviation 42.8 fL 42.5 fL RDW Coefficient of Variation 13.3 % 13.2 % Immature Granulocyte % (Auto) 0.2 % Immature Granulocyte # (Auto) 0.02 K/uL Sodium Level 136 mmol/L 135 mmol/L Potassium Level 4.0 mmol/L 3.8 mmol/L Chloride Level 101 mmol/L 99 mmol/L Carbon Dioxide Level 26 mmol/L 28 mmol/L Anion Gap 9.0 mmol/L 7.0 mmol/L Blood Urea Nitrogen 18 mg/dl 26 mg/dl Creatinine 1.19 mg/dl 1.14 mg/dl Est Creatinine Clear Calc Drug Dose 63.0 ml/min 65.8 ml/min Estimated GFR () 73.3 77.2 Estimated GFR (Non- 63.3 66.6 BUN/Creatinine Ratio 15.5 22.5 Random Glucose 115 mg/dl 186 mg/dl Calcium Level 9.0 mg/dl 8.6 mg/dl Troponin I 0.017 ng/ml 0.289 ng/ml Pro-B-Type Natriuretic Peptide 3531 pg/ml Influenza Type A Antigen Neg for Influ A Influenza Type B Antigen Neg for Influ B Procalcitonin 0.09 ng/ml Bedside Glucose 179 mg/dl Prothrombin Time 10.7 SECONDS Prothromb Time International Ratio 1.0 Activated Partial Thromboplast Time 29.2 SECONDS Partial Thromboplastin Ratio 1.1 Test 12/17/17 10:18 12/17/17 10:57 12/17/17 12:17 12/17/17 14:55 Troponin I 0.378 ng/ml Bedside Glucose 145 mg/dl White Blood Count 8.35 K/uL Red Blood Count 3.88 M/uL Hemoglobin 11.4 g/dL Hematocrit 34.0 % Mean Corpuscular Volume 87.6 fL Mean Corpuscular Hemoglobin 29.4 pg Mean Corpuscular Hemoglobin Concent 33.5 g/dl Platelet Count 118 K/uL Mean Platelet Volume 11.9 fL Neutrophils (%) (Auto) 76.5 % Lymphocytes (%) (Auto) 12.8 % Monocytes (%) (Auto) 9.7 % Eosinophils (%) (Auto) 0.6 % Basophils (%) (Auto) 0.2 % Neutrophils # (Auto) 6.38 K/uL Lymphocytes # (Auto) 1.07 K/uL Monocytes # (Auto) 0.81 K/uL Eosinophils # (Auto) 0.05 K/uL Basophils # (Auto) 0.02 K/uL RDW Standard Deviation 43.0 fL RDW Coefficient of Variation 13.4 % Immature Granulocyte % (Auto) 0.2 % Immature Granulocyte # (Auto) 0.02 K/uL Diagnostic Results Reviewed the radiology report and chest x-ray images dated 12/16/2017 Assessment & Plan Reason Critically Ill: 67-year-old male with history of ischemic cardiomyopathy with elevated troponins to experienced hematemesis and a 3 g drop in hemoglobin with now persistent hypotension PLAN: Resp: Exertional dyspnea * Influenza negative CV: Ischemic cardiomyopathy * Continue to trend troponins * Repeat limited echo to evaluate EF Hypotension * Checking random cortisol * May require vasoactive's * lactic acid to evaluate for global hypoperfusion Fluids/Renal: Patient is nothing by mouth No additional fluid at this time secondary to volume overload ID: Monitor fever curve GI/Nutrition: Hematemesis * Amna-Junior tear versus peptic ulcer leading diagnosis * On PPI infusion * Reviewed GI notes * Ordered type and cross holding 2 units Heme: Heparin infusion on hold * Mechanical thrombo-prophylaxis Endocrine: Hyperglycemia secondary to type 2 diabetes * May require sliding scale insulin maintain 2 iv's anesthesia evaluation for possible EGD I have personally spent 60 minutes of critical care time in the direct management of this patient. This is a life/limb threatening event. This includes time spent evaluating patient, direct bedside care, chart review, placing orders, interpretation of diagnostic studies, discussion with consultants, patient, and/or family members regarding treatment decisions, as well as other required patient management activities. This time is exclusive of all separately billable procedures, and teaching time and separate from and in addition to any other critical care service time.
[2017-12-17] MEDS ORDERED: ICU PROTOCOL FOR HYPERGLYCEMIA PRN (15:45)
[2017-12-17 16:21] LABS: HEMATOCRIT 31.4 % (42-52); HEMOGLOBIN 10.7 g/dL (14.0-18.0)
--- NOTE | 2017-12-17 16:44 | Progress Note ---
Progress Note Date of Service Dec 17, 2017. Progress Note Patient is an 67 year old M with recent hematemesis who is currently in ICU for hemodynamic instability. Medical history is complicated by severe ischemic cardiomyopathy with a recent EF of 30%. He also appears to have recently be in acute on chronic systolic and diastolic CHF. He was treated while inpatient with diuretics. Most recently, the patient is now in the ICU for systolic BPs in the 70s-90s and his hemoglobin has dropped 3 points. He has not yet required pressors or blood transfusion. GI was consulted for evaluation and possible EGD, but the patient refused this intervention. I have spoken with the nurse and the patient is still refusing intervention at this time, thus, I did not examine or interview him for anesthesia. If this case proceeds to intervention, it will have to take place in the main OR, very possibly under general anesthesia.
[2017-12-17] MEDS ORDERED: INSULIN PROTOCOL GOAL RANGE ONE (17:00)
[2017-12-17] MEDS ORDERED: SEVERE STRESS LEVEL ONE (17:00)
[2017-12-17] MEDS ORDERED: INSULIN IV INFUSION PROTOCOL STA (17:03)
[2017-12-17] MEDS ORDERED: NovoLIN R BOLUS FROM BAG IV SCH (18:30)
[2017-12-17] MEDS ORDERED: INSULIN REGULAR 250 UNITS in SODIUM CHLORIDE 0.9% 250ML 250 ML IV SCH (18:30)
[2017-12-17 19:15] LABS: HEMOGLOBIN 9.2 g/dL (14.0-18.0)
[2017-12-17] MEDS ORDERED: PROPOFOL IV EMULSION 10 MG/ML 100 ML VIAL IV ONE (19:19)
[2017-12-17] MEDS ORDERED: PROPOFOL IV EMULSION 10 MG/ML 100 ML VIAL IV PRN (19:30)
--- NOTE | 2017-12-17 19:47 | DIAGNOSTIC IMAGING REPORT ---
CHEST ONE VIEW PORTABLE CLINICAL HISTORY: S/P CENTRAL LINE COMPARISON STUDY: 12/08/2017 FINDINGS: There are postsurgical changes of midline sternotomy. The study is rotated. There is mild cardiac enlargement. There is been interval insertion of a right internal jugular introducer sheath. The tip projects at the superior vena cava. There is no pneumothorax. There is no focal pulmonary consolidation. There are no pleural effusions.[ IMPRESSION: Persistent cardiomegaly. No evidence of pneumothorax status post placement of a right internal jugular introducer sheath Electronically signed by: Valentin Werner M.D. 12/17/2017 7:46 PM Dictated Date/Time: 12/17/2017 7:45 PM
--- NOTE | 2017-12-17 20:10 | Procedure Note ---
Procedure Note Procedure Date Dec 17, 2017. Procedure Description Procedure time out: patient ID confirmed, correct procedure Consent obtained: verbal Central Line Procedure time out: side/site verified, patient ID confirmed, sterile procedure used Consent obtained: written Time of procedure: 19:00 Performed by: attending Indications: poor venous access, central drug admin. Prep: chlorhexadine prep Anesthesia: topical, lidocaine 1% without epi Volume anesthetic (ml's): 3 Central line lumen: triple Central line location: internal jugular (R) Additional details: ultrasound guidance, Selinger technique used, line sutured , good blood return CXR: appropriate position Complications: none Patient tolerated procedure: well Post-procedure vital signs: reviewed and stable Comments: Critical Care Medicine Point of Care Bedside Ultrasound Procedure: Procedural Ultrasound Procedure Date: 12/17/2017 Indication: Hypotension active GI bleeding possible cardiac ischemia Attending: Melinda Sanches DO Resident/Physician Financial Aid Administrator: Not applicable Artery AND Vein visualized: y Compressible Vein: y Guidewire or Short Catheter seen in vein prior to dilation: y Line confirmed in Vein with ultrasound: y Lung Sliding on side of attempt (if applicable): Not applicable If no lung sliding or not obtained has CXR been ordered: y Impression: Successful placement of right internal jugular central venous catheter Plan: Proceed with blood transfusion Images obtained are saved for permanent record
--- NOTE | 2017-12-17 20:17 | Endo History and Physical ---
History & Physical Date of Service: Dec 17, 2017. Chief Complaint: hematemesis with hemodynamic instability since starting heparin this AM. Hematemesis again this afternoon despite stopped heparin gtt. Referring Physician: Critical Care History of Present Illness as noted IN CONSULT AND NOTES FROM EARLIER TODAY Past Medical History Atrial Fibrillation, Diabetes, Angioplasty/Stent, Asthma, High Cholesterol, CABG , Heart Disease, CHF, Hypertension, CO Past Surgical History Hx Cardiac Surgery: Yes (Double Bypass 2005; Stents [id number]; Catherization 2016) Hx Abdominal Surgery: No Hx Post-Op Nausea and Vomiting: No Hx Cancer Surgery: No Hx Thoracic Surgery: No Hx Orthopedic: No Hx Urinary Tract Surgery: No Social History Smoking Status: Unknown if Ever Smoked Hx Substance Use: No Hx Alcohol Use: No Allergies Coded Allergies: Amoxicillin (Verified Allergy, Severe, hives swelling redness lip swelling , 12/16/17) Clavulanic Acid (Verified Allergy, Severe, hypotensive shock, 12/16/17) Iodinated Diagnostic Agents (Verified Allergy, Intermediate, HIVES, ) Prednisone (Verified Allergy, Intermediate, SHORTNESS OF BREATH, 12/16/17) as per patient Current Medications Reported Home Medications Medications Dose Route/Sig Max Daily Dose Days Date Category Sildenafil (Sildenafil Citrate (Pulmonary) 20 Mg Tab 20-40 Mg PO DIRECTED PRN 12/16/17 Reported Co Q 10 (Coenzyme Q10 (Ubidecarenone)) 100 Mg Cap 200 Mg PO DAILY 12/16/17 Reported Slow-Mag Tab (Magnesium Chloride) 64 Mg Tabcr 2 Tabs PO DAILY 12/16/17 Reported Losartan Potassium 25 Mg Tab 25 Mg PO DAILY 12/16/17 Reported Nitrostat (Nitroglycerin) 0.4 Mg Sub 0.4 Mg UT PRN 08/10/17 Reported Vitamin B Complex (B-Complex Vitamins) 1 Tab Tab 1 Tab PO DAILY 08/10/17 Reported Ascorbic Acid 1,000 Mg Tab 1,000 Mg PO BID 08/10/17 Reported Glipizide Er (Glipizide) 10 Mg Tab 10 Mg PO BID 08/10/17 Reported Lasix (Furosemide) 40 Mg Tab 40 Mg PO DAILY 09/21/15 Reported Lopressor (Metoprolol Tartrate) 25 Mg Tab 25 Mg PO BID 09/21/15 Reported Vital Signs Weight (Kilograms): 84.500 Height (Feet): 5 Height (Inches): 10.00 Date Time Temp Pulse Resp B/P (MAP) Pulse Ox O2 Delivery O2 Flow Rate FiO2 12/17/17 19:45 37.0 103 20 88/52 98 12/17/17 19:30 36.9 106 20 110/61 99 12/17/17 16:05 98 Room Air 12/17/17 15:30 92 24 93/54 (67) 98 Room Air 12/17/17 15:05 88 20 81/49 (60) 100 Room Air 12/17/17 15:01 88 21 72/47 (55) Room Air 12/17/17 14:49 36.7 89 21 84/48 (60) Room Air 12/17/17 14:31 89 87/54 (65) 12/17/17 14:14 80 77/49 (58) 74/42 (53) 12/17/17 13:51 89 74/48 (57) 12/17/17 12:58 88 83/51 (62) 12/17/17 12:58 88 83/51 (62) 12/17/17 12:14 80 78/36 (50) 12/17/17 12:00 Room Air 12/17/17 12:00 83 77/34 (48) 12/17/17 11:40 80 71/34 (46) 66/36 (46) 12/17/17 11:05 77 91/58 (69) 12/17/17 10:45 37.0 78 18 99/61 (74) 98 Room Air 12/17/17 07:45 Room Air 12/17/17 07:41 37.2 94 18 132/71 (91) 95 Room Air 12/17/17 04:00 Room Air 12/17/17 03:15 37.2 111 20 166/83 96 Room Air 12/17/17 03:04 95 18 159/84 94 12/17/17 00:19 104 18 160/84 94 Room Air 12/16/17 22:26 97 12/16/17 21:29 36.9 109 20 154/87 94 Room Air Physical Exam General Appearance: WD/WN, + mild distress Assessment and Plan Emergent EGD. Patient very high risk. Initially refused EGD earlier today. Now agreeable since vomiting blood again and drop in H/H. Receiving 1 unit of blood as well as volume.
[2017-12-17] MEDS ORDERED: FENTANYL CITRATE INJ 50 MCG/1 ML 2 ML VIAL ONE ×2 (20:28)
[2017-12-17] MEDS ORDERED: PROPOFOL IV EMULSION 10 MG/ML 20 ML VIAL IV ONE (20:47)
[2017-12-17] MEDS ORDERED: SUCCINYLCHOLINE CHLORIDE 20 MG/ML 10 ML VIAL IV ONE (20:47)
[2017-12-17] MEDS ORDERED: LIDOCAINE HCL 2% 2 ML VIAL (20MG/ML) ONE (20:47)
--- NOTE | 2017-12-17 20:56 | GI REPORT ---
Procedure Date: 12/17/2017 8:15 PM Procedure: Upper GI endoscopy Indications: Acute post hemorrhagic anemia, Hematemesis Medicines: Propofol per Anesthesia, General Anesthesia Complications: No immediate complications. Estimated blood loss: None. Estimated Blood Loss: Estimated blood loss: none. Procedure: Pre-Anesthesia Assessment: - Prior to the procedure, a History and Physical was performed, and patient medications, allergies and sensitivities were reviewed. The patient's tolerance of previous anesthesia was reviewed. - The risks and benefits of the procedure and the sedation options and risks were discussed with the patient. All questions were answered and informed consent was obtained. - Patient identification and proposed procedure were verified prior to the procedure by the physician and the nurse. The procedure was verified in the pre-procedure area in the procedure room. - Mental Status Examination: alert and oriented. Airway Examination: normal oropharyngeal airway and neck mobility. Respiratory Examination: clear to auscultation. CV Examination: normal. Abdominal Examination: bowel sounds present, abdomen soft and non-tender, no masses or organomegaly noted. - ASA Grade Assessment: E - Emergency. After obtaining informed consent, the endoscope was passed under direct vision. Throughout the procedure, the patient's blood pressure, pulse, and oxygen saturations were monitored continuously. The scope was introduced through the mouth, and advanced to the second part of duodenum. The upper GI endoscopy was accomplished without difficulty. The patient tolerated the procedure well. Findings: Few cratered esophageal ulcers with no bleeding and stigmata of recent bleeding were found in the lower third of the esophagus. Hematin (altered blood/xrrgsj-yimfzp-yqws material) was found in the stomach. The examined duodenum was normal. Impression: - Multiple large Non-bleeding esophageal ulcers. One of the ulcers is deep and cratered. Not actively bleeding. - Hematin/old blood (altered blood/byzrjw-ctwovh-lmmu material) in the stomach. No fresh blood. - Normal examined duodenum. Recommendation: - Continue Protonix (pantoprazole): 8 mg/hr IV by continuous infusion. - NPO. - Follow H/H. Transfuse PRN. - Please keep patient intubated and sedated over night. - If patient with s/s of recurrent bleeding, will repeat EGD tomorrow prior to extubation. - Return patient to ICU for ongoing care. Michelle Garcia D.O. Michelle Garcia DO 12/17/2017 8:55:41 PM This report has been signed electronically. Note Initiated On: 12/17/2017 8:15 PM I attest to the content of the Intraoperative Record and orders documented therein, exceptions below
[2017-12-17] MEDS ORDERED: MIDAZOLAM 125MG/250ML D5W 250 ML IV PRN (21:26)
--- NOTE | 2017-12-17 23:52 | Anesthesiology Progress Note ---
Anesthesia Post Op Note Date & Time Dec 17, 2017 at 23:51 Vital Signs Pain Intensity: 0.0 Vital Signs Past 12 Hours Date Time Temp Pulse Resp B/P (MAP) Pulse Ox O2 Delivery O2 Flow Rate FiO2 12/17/17 23:19 85 12 124/65 (84) 100 12/17/17 23:01 84 18 104/61 (75) 100 12/17/17 22:51 84 12 109/52 (71) 100 12/17/17 22:30 86 12 115/64 (81) 100 12/17/17 22:00 91 14 101/57 (72) 100 12/17/17 21:30 37.2 107 15 115/65 (82) 100 12/17/17 21:30 103 15 12/17/17 21:30 50 12/17/17 21:25 97 16 119/49 (58) 100 12/17/17 21:25 97 16 12/17/17 21:21 85 17 99/64 (80) 100 12/17/17 21:21 86 17 12/17/17 21:21 99/64 (80) 12/17/17 21:20 90 22 100 12/17/17 21:20 90 12/17/17 21:17 132/54 (68) 12/17/17 21:17 132/54 (68) 12/17/17 21:16 102 18 12/17/17 21:16 100 18 100 12/17/17 21:15 104 18 12/17/17 21:15 105 18 97 12/17/17 21:11 100/50 (67) 12/17/17 21:05 37.2 98 100/50 98 Mechanical Ventilator 50 12/17/17 20:00 98 Room Air 12/17/17 19:45 37.0 103 20 88/52 98 12/17/17 19:30 36.9 106 20 110/61 99 12/17/17 18:30 93 107/55 (72) 95 12/17/17 18:00 98 110/60 (77) 97 12/17/17 17:55 100 132/74 (93) 12/17/17 17:30 93 27 98/53 (68) 100 12/17/17 17:00 92 20 82/48 (59) 96 12/17/17 16:31 92 19 88/44 (59) 99 12/17/17 16:05 98 Room Air 12/17/17 15:30 92 24 93/54 (67) 98 Room Air 12/17/17 15:05 88 20 81/49 (60) 100 Room Air 12/17/17 15:01 88 21 72/47 (55) Room Air 12/17/17 14:49 36.7 89 21 84/48 (60) Room Air 12/17/17 14:31 89 87/54 (65) 12/17/17 14:14 80 77/49 (58) 74/42 (53) 12/17/17 13:51 89 74/48 (57) 12/17/17 12:58 88 83/51 (62) 12/17/17 12:58 88 83/51 (62) 12/17/17 12:14 80 78/36 (50) 12/17/17 12:00 Room Air 12/17/17 12:00 83 77/34 (48) Notes Mental Status: see Notes Pt Amnestic to Procedure: Yes Nausea / Vomiting: adequately controlled Pain: adequately controlled Airway Patency, RR, SpO2: stable & adequate, see Notes BP & HR: stable & adequate Hydration State: stable & adequate Anesthetic Complications: no major complications apparent Patient remains intubated post operatively as planned to minimize any wretching and also to account for probable fluid shifts given his CHF. He is comfortably sedated and plan is to reevaluate by ICU staff regarding weaning in the AM. I have personally spoken with the ICU PA who is in contact with the attending physician.
[2017-12-17 23:58] LABS: HEMATOCRIT 27.6 % (42-52); HEMOGLOBIN 9.7 g/dL (14.0-18.0)
[2017-12-18] VITALS (61 sets, daily range): BP systolic 81–130; BP diastolic 43–71; PULSE 54–115; TEMP 36.7–37.3; O2SAT 93–100
[2017-12-18 03:59] LABS: HEMATOCRIT 28.7 % (42-52); HEMOGLOBIN 9.9 g/dL (14.0-18.0); MEAN CELL VOLUME 87.5 fL (80-100); MEAN CORPUSCULAR HEMOGLOBIN 30.2 pg (25-34); MEAN CORPUSCULAR HGB CONC 34.5 g/dl (32-36); RED CELL DISTRIBUTION WIDTH CV 13.7 % (11.5-14.5); WHITE BLOOD COUNT 10.85 K/uL (4.8-10.8)
[2017-12-18 04:23] LABS: MEAN PLATELET VOLUME 11.9 fL (7.4-10.4); PLATELET COUNT 98 K/uL (130-400)
[2017-12-18 04:27] LABS: CALCIUM 7.1 mg/dl (8.5-10.1); CREATININE 1.31 mg/dl (0.60-1.40); PHOSPHORUS 3.1 mg/dl (2.5-4.9); POTASSIUM 4.2 mmol/L (3.5-5.1)
[2017-12-18] MEDS: PANTOprazole INJ 40 MG in DEXTROSE 5% 100ML IV SCH ×4 (04:46→20:11)
[2017-12-18] MEDS: INSULIN ASPART 100 UNITS/ML 3 ML PEN SC SCH ×5 (08:00→22:01)
--- NOTE | 2017-12-18 08:23 | DIAGNOSTIC IMAGING REPORT ---
CHEST ONE VIEW PORTABLE CLINICAL HISTORY: Intubated COMPARISON STUDY: Chest radiograph December 17, 2017. FINDINGS: Study is rotated. Endotracheal tube tip is approximately 2.5 cm above the jared. There is no pneumothorax. There is no evidence for pulmonary edema. Cardiac size is normal. There are median sternotomy wires and mediastinal surgical clips. A right internal jugular introducer sheath is noted. IMPRESSION: 1. Rotated study. Tip of endotracheal tube approximately 2.5 cm above the jared. 2. No acute cardiopulmonary findings. Electronically signed by: Vishnu Jerez M.D. 12/18/2017 8:22 AM Dictated Date/Time: 12/18/2017 8:19 AM
[2017-12-18] MEDS ORDERED: FENTANYL CITRATE INJ 50 MCG/1 ML 2 ML VIAL IV PRN (08:30)
[2017-12-18 08:47] LABS: HEMATOCRIT 30.1 % (42-52); HEMOGLOBIN 10.2 g/dL (14.0-18.0)
--- NOTE | 2017-12-18 08:47 | Gastroenterology Progress Note ---
Progress Note Date of Service: Dec 18, 2017 Subjective Pt evaluation today including: physical exam, chart review, lab review, review of inpatient medication list Pt sedated and intubated. Unable to obtain ROS from him. Pt's H/H continued to drop since last seen yesterday afternoon. He had 2U PRBC last night. Hgb staying around 9-10. He underwent EGD around 8: - Multiple large Non-bleeding esophageal ulcers. One of the ulcers is deep and cratered. Not actively bleeding. - Hematin/old blood (altered blood/xiczuq-ehjjqx-dclg material) in the stomach. No fresh blood. - Normal examined duodenum. Had a smear of franck stool last night. No hematemesis. AM CBC pending. Medications Current Inpatient Medications Medications (Trade) Dose Ordered Sig/[place] Route Start Time Stop Time Status Last Admin Dose Admin Acetaminophen (Tylenol Tab) 650 mg Q4H PRN PO 12/17/17 02:45 01/16/18 02:44 Al Hydrox/Mg Hydrox/Simethicone (Maalox Max Susp) 15 ml Q4H PRN PO 12/17/17 02:45 01/16/18 02:44 Magnesium Hydroxide (Milk Of Magnesia Susp) 30 ml Q12H PRN PO 12/17/17 02:45 01/16/18 02:44 Ondansetron HCl (Zofran Inj) 4 mg Q6H PRN IV 12/17/17 02:45 01/16/18 02:44 12/17/17 11:05 4 MG Polyethylene (Miralax Powder Packet) 17 gm DAILY PRN PO 12/17/17 02:45 01/16/18 02:44 Losartan Potassium (coZAAR TAB) 25 mg DAILY PO 12/17/17 09:00 01/16/18 08:59 Future Hold 12/17/17 08:07 25 MG Magnesium Chloride (Slow-Mag Tab) 128 mg DAILY PO 12/17/17 09:00 01/16/18 08:59 12/17/17 08:07 128 MG Metoprolol Tartrate (Lopressor Tab) 25 mg BID PO 12/17/17 09:00 01/16/18 08:59 Future Hold 12/17/17 08:07 25 MG Nitroglycerin (Nitrostat Tab) 0.4 mg PRN UT 12/17/17 02:45 01/16/18 02:44 Glucagon (Glucagon Inj) 1 mg UD PRN SQ 12/17/17 19:15 01/16/18 19:14 Glucose (Glucose 40% Gel) 15-30 GRAMS 15 GRAMS... UD PRN PO 12/17/17 19:15 01/16/18 19:14 Glucose (Glucose Chew Tab) 4-8 Tablets 4 Tabl... UD PRN PO 12/17/17 19:15 01/16/18 19:14 Miscellaneous (Iv Fluids Completed) 1 ea PRN PRN N/A 12/17/17 03:00 12/17/18 02:59 Calcium Carbonate (Tums Chew Tab) 500 mg Q8H PRN PO 12/17/17 03:45 01/16/18 03:44 Sodium Chloride 1,000 ml @ 100 mls/hr Q10H IV 12/17/17 12:30 01/16/18 12:29 12/17/17 23:15 200 MLS/HR Pantoprazole Sodium 40 mg/ Dextrose 100 ml @ 20 mls/hr Q5H IV 12/17/17 13:00 01/16/18 12:59 12/18/17 04:46 20 MLS/HR Miscellaneous Information (Icu Protocol For Hyperglycemia) 1 ea PRN PRN N/A 12/17/17 15:45 12/19/17 15:44 Insulin Aspart (novoLOG ASPART) SLIDING SCALE HS SC 12/17/17 17:15 01/16/18 17:14 Insulin Human Regular 250 units/ Sodium Chloride 252.5 ml @ 0 mls/hr Q24H IV 12/17/17 18:30 01/16/18 18:29 12/17/17 19:06 3 MLS/HR Propofol (Diprivan Iv Emulsion 100ml Vial) 1 dose UD PRN IV 12/17/17 19:30 12/20/17 19:29 12/18/17 04:46 1 DOSE Fentanyl Citrate (Fentanyl Inj) 25 mcg Q2H PRN IV 12/18/17 08:30 01/01/18 08:29 Objective Vital Signs Date Time Temp Pulse Resp B/P (MAP) Pulse Ox O2 Delivery O2 Flow Rate FiO2 12/18/17 07:50 28 12/18/17 06:00 60 16 98/49 (69) 100 12/18/17 05:30 61 16 93/49 (64) 100 12/18/17 05:19 28 12/18/17 05:00 60 15 86/48 (63) 99 12/18/17 04:30 59 15 86/44 (63) 99 12/18/17 04:00 60 14 85/43 (60) 100 12/18/17 04:00 28 12/18/17 04:00 100 Mechanical Ventilator 28 12/18/17 04:00 36.9 12/18/17 03:30 62 19 91/46 (64) 99 12/18/17 03:00 60 12 81/47 (63) 100 12/18/17 02:30 36.9 65 24 96/50 100 12/18/17 02:30 66 23 96/50 (75) 100 12/18/17 02:21 28 12/18/17 02:00 64 12 100/56 (77) 100 12/18/17 01:30 75 25 104/52 (59) 100 12/18/17 01:30 36.8 74 23 104/52 100 12/18/17 01:15 75 22 94/50 (59) 100 12/18/17 01:00 36.9 79 25 96/51 100 12/18/17 01:00 78 12 96/51 (57) 100 12/18/17 00:59 35 12/18/17 00:45 79 15 105/56 (67) 100 12/18/17 00:40 79 19 91/56 (69) 100 12/18/17 00:40 36.9 69 23 91/56 100 12/18/17 00:31 82 24 95/52 (59) 100 12/18/17 00:29 36.9 79 17 117/64 100 12/18/17 00:08 35 12/18/17 00:01 36.9 12/18/17 00:01 83 22 117/64 (83) 100 12/17/17 23:59 100 Mechanical Ventilator 35 12/17/17 23:30 80 18 98/52 (71) 100 12/17/17 23:19 85 12 124/65 (76) 100 12/17/17 23:19 85 12 124/65 (84) 100 12/17/17 23:10 77 13 102/52 (60) 100 12/17/17 23:01 84 18 104/61 (75) 100 12/17/17 23:01 84 18 104/61 (68) 100 12/17/17 22:51 84 12 109/52 (71) 100 12/17/17 22:30 86 12 115/64 (81) 100 12/17/17 22:00 91 14 101/57 (72) 100 12/17/17 21:30 37.2 107 15 115/65 (82) 100 12/17/17 21:30 103 15 12/17/17 21:30 50 12/17/17 21:25 97 16 119/49 (58) 100 12/17/17 21:25 97 16 12/17/17 21:21 85 17 99/64 (80) 100 12/17/17 21:21 86 17 12/17/17 21:21 99/64 (80) 12/17/17 21:20 90 22 100 12/17/17 21:20 90 12/17/17 21:17 132/54 (68) 12/17/17 21:17 132/54 (68) 12/17/17 21:16 102 18 12/17/17 21:16 100 18 100 12/17/17 21:15 104 18 12/17/17 21:15 105 18 97 12/17/17 21:11 100/50 (67) 12/17/17 21:05 37.2 98 100/50 98 Mechanical Ventilator 50 12/17/17 20:00 98 Room Air 12/17/17 19:45 37.0 103 20 88/52 98 12/17/17 19:30 36.9 106 20 110/61 99 12/17/17 18:30 93 107/55 (72) 95 12/17/17 18:00 98 110/60 (77) 97 12/17/17 17:55 100 132/74 (93) 12/17/17 17:30 93 27 98/53 (68) 100 12/17/17 17:00 92 20 82/48 (59) 96 12/17/17 16:31 92 19 88/44 (59) 99 12/17/17 16:05 98 Room Air 12/17/17 15:30 92 24 93/54 (67) 98 Room Air 12/17/17 15:05 88 20 81/49 (60) 100 Room Air 12/17/17 15:01 88 21 72/47 (55) Room Air 12/17/17 14:49 36.7 89 21 84/48 (60) Room Air 12/17/17 14:31 89 87/54 (65) 12/17/17 14:14 80 77/49 (58) 74/42 (53) 12/17/17 13:51 89 74/48 (57) 12/17/17 12:58 88 83/51 (62) 12/17/17 12:58 88 83/51 (62) 12/17/17 12:14 80 78/36 (50) 12/17/17 12:00 Room Air 12/17/17 12:00 83 77/34 (48) 12/17/17 11:40 80 71/34 (46) 66/36 (46) 12/17/17 11:05 77 91/58 (69) 12/17/17 10:45 37.0 78 18 99/61 (74) 98 Room Air Physical Exam General Appearance: no apparent distress ENT: + pertinent finding (intubated ) Neck: supple, no JVD, trachea midline Respiratory/Chest: no respiratory distress, no accessory muscle use, + decreased breath sounds Cardiovascular: regular rate, rhythm, no gallop, no murmur Abdomen: soft, + abnormal bowel sounds (hypoactive) Extremities: normal inspection, no pedal edema, no calf tenderness Neurologic/Psych: + pertinent finding (Sedated, intubated) Skin: normal color, no jaundice, no rash Laboratory Results Last 24 Hours Test 12/17/17 10:18 12/17/17 10:57 12/17/17 12:17 12/17/17 14:55 Troponin I 0.378 ng/ml Bedside Glucose 145 mg/dl White Blood Count 8.35 K/uL Red Blood Count 3.88 M/uL Hemoglobin 11.4 g/dL Hematocrit 34.0 % Mean Corpuscular Volume 87.6 fL Mean Corpuscular Hemoglobin 29.4 pg Mean Corpuscular Hemoglobin Concent 33.5 g/dl Platelet Count 118 K/uL Mean Platelet Volume 11.9 fL Neutrophils (%) (Auto) 76.5 % Lymphocytes (%) (Auto) 12.8 % Monocytes (%) (Auto) 9.7 % Eosinophils (%) (Auto) 0.6 % Basophils (%) (Auto) 0.2 % Neutrophils # (Auto) 6.38 K/uL Lymphocytes # (Auto) 1.07 K/uL Monocytes # (Auto) 0.81 K/uL Eosinophils # (Auto) 0.05 K/uL Basophils # (Auto) 0.02 K/uL RDW Standard Deviation 43.0 fL RDW Coefficient of Variation 13.4 % Immature Granulocyte % (Auto) 0.2 % Immature Granulocyte # (Auto) 0.02 K/uL Activated Partial Thromboplast Time 29.7 SECONDS Partial Thromboplastin Ratio 1.1 Test 12/17/17 15:59 12/17/17 16:14 12/17/17 18:15 12/17/17 19:03 Hemoglobin 10.7 g/dL 9.2 g/dL Hematocrit 31.4 % 27.0 % Lactic Acid Level 1.7 mmol/L Random Cortisol 39.66 mcg/dl Bedside Glucose 299 mg/dl 287 mg/dl Troponin I 0.283 ng/ml Test 12/17/17 20:05 12/17/17 21:31 12/17/17 22:37 12/17/17 23:51 Bedside Glucose 220 mg/dl 199 mg/dl 146 mg/dl Hemoglobin 9.7 g/dL Hematocrit 27.6 % Test 12/17/17 23:52 12/18/17 00:54 12/18/17 02:01 12/18/17 03:51 Bedside Glucose 150 mg/dl 145 mg/dl 145 mg/dl 159 mg/dl Test 12/18/17 03:52 12/18/17 05:57 12/18/17 08:02 12/18/17 08:30 White Blood Count 10.85 K/uL Red Blood Count 3.28 M/uL Hemoglobin 9.9 g/dL Hematocrit 28.7 % Mean Corpuscular Volume 87.5 fL Mean Corpuscular Hemoglobin 30.2 pg Mean Corpuscular Hemoglobin Concent 34.5 g/dl RDW Standard Deviation 44.0 fL RDW Coefficient of Variation 13.7 % Platelet Count 98 K/uL Mean Platelet Volume 11.9 fL Platelet Estimate DECREASED Venous Blood pH 7.34 Venous Blood Partial Pressure CO2 44 mmHg Venous Blood Partial Pressure O2 42 mmHg Venous Blood HCO3 23 mmol/L Venous Blood Oxygen Saturation 73.1 % Venous Blood Base Excess -2.2 mEq/L Sodium Level 140 mmol/L Potassium Level 4.2 mmol/L Chloride Level 109 mmol/L Carbon Dioxide Level 25 mmol/L Anion Gap 6.0 mmol/L Blood Urea Nitrogen 62 mg/dl Creatinine 1.31 mg/dl Est Creatinine Clear Calc Drug Dose 57.3 ml/min Estimated GFR () 65.3 Estimated GFR (Non- 56.3 BUN/Creatinine Ratio 47.3 Random Glucose 155 mg/dl Calcium Level 7.1 mg/dl Phosphorus Level 3.1 mg/dl Magnesium Level 2.0 mg/dl Troponin I 0.159 ng/ml Bedside Glucose 123 mg/dl 118 mg/dl Assessment and Plan Patient is a 67 year old male seen for hematemesis after Heparin gtt started yesterday. He had EGD eval overnight which showed multiple large deep esophageal ulcer, one of deep cratered. No active bleeding. ? pill esophagitis vs underlaying malignancy. He had received 2U PRBC overnight. Hgb stable between 9-10. Had a smear of franck stool last night but no recurrence of hematemesis. AM labs pending. He remains intubated. - No plans on repeat EGD today. Thus OK to extubate - Follow AM labs - Transfuse prn - Continue Protonix gtt - Keep NPO today - Continue Zofran PRN nausea, as he may trigger another bleeding episode of he starts having vomiting. - Plan for possible repeat EGD in 2 week's time to re-eval ulcer and to obtain biopsies. I have seen and examined the patient with NICOLE Best whose note reflects our findings and plan.
--- NOTE | 2017-12-18 08:55 | Clinical Documentation Query ---
SARAH Vizcarra : CLINICAL DOCUMENTATION QUERY Patient is a 67 year old male admitted for acute on chronic systolic CHF, who experienced acute hematemesis. GI consulted. Heparin infusion discontinued. EGD completed. Hemoglobin declined from 15 g/dl on admission to a minimum of 9.2 g/dl. He was transfused two units of PRBC's. Hemoglobin this a.m. was 9.9 g/dl. In your clinical opinion is this patient being managed for: (x ) Acute blood loss anemia ( ) Not Agree ( ) Other explanation of clinical findings (Please Explain) ( ) Unable to determine (Please Define) ( ) Need to Discuss The medical record reflects the following clinical findings, treatment, and risk factors. Clinical Indicators: As above Treatment: As above Risk Factors: Vomiting, heparin infusion Please clarify and document your clinical opinion in the progress notes and discharge summary. Terms such as "probable", "suspected", "likely", "questionable", "possible", or "still to be ruled out" are acceptable. IF IN AGREEMENT, YOU MUST DOCUMENT ABOVE DIAGNOSTIC STATEMENT IN DAILY PROGRESS NOTES AND DISCHARGE SUMMARY. This document is not part of the patient's record. Thank You, Kong Garrison, RN [phone]
[2017-12-18 08:56] LABS: PTT PATIENT 26.7 SECONDS (21.0-31.0)
[2017-12-18] MEDS: MAGNESIUM CHLORIDE 64MG DELAYED REL TAB PO SCH (09:00)
--- NOTE | 2017-12-18 10:22 | Cardiology Follow-Up ---
Subjective General Date of Service: Dec 18, 2017. Chief Complaint: CHF; GI bleed Pt evaluation today including: physical exam, chart review, lab review, review of studies, conversation w/ advanced manufacturing consultant, review of inpatient medication list History of Present Illness Patient currently intubated. ROS not able to be performed Charts reviewed. Telemetry reviewed - NSR, occ PVC. Allergies Coded Allergies: Amoxicillin (Verified Allergy, Severe, hives swelling redness lip swelling , 12/16/17) Clavulanic Acid (Verified Allergy, Severe, hypotensive shock, 12/16/17) Iodinated Diagnostic Agents (Verified Allergy, Intermediate, HIVES, ) Prednisone (Verified Allergy, Intermediate, SHORTNESS OF BREATH, 12/16/17) as per patient Social History Smoking Status: Unknown if Ever Smoked Hx Tobacco Use In Past Year?: No Hx Alcohol Use - Type And Amou: No Hx Substance Use - Type And Am: No Problem List Medical Problems: (1) Abscess of right foot including toes Status: Acute (2) Acute chest pain Status: Acute (3) DANIEL (acute kidney injury) Status: Acute (4) Cellulitis Status: Acute (5) CHF exacerbation Status: Acute (6) Dehydration Status: Acute (7) Diabetic foot infection Status: Acute (8) Elevated troponin Status: Acute (9) Leukocytosis Status: Acute (10) Lymphangitis, acute, lower leg Status: Acute (11) Sepsis Status: Acute Review of Systems Respiratory: + see HPI Cardiac: + see HPI Physical Exam Vital Signs Last Vital Signs Documentation Date Time Temp Pulse Resp B/P (MAP) Pulse Ox O2 Delivery O2 Flow Rate FiO2 12/18/17 09:30 66 14 126/62 (83) 100 Mechanical Ventilator 12/18/17 08:00 36.7 Physical Exam Constitutional: Level of Distress: acutely ill, chronically ill Assessment and Plan Assessment and Plan ASSESSMENT: 67 year old male 1. Admitted for Acute on chronic decompensated systolic HF, symptoms improved with IV furosemide. 2. Mildly elevated troponin, at 0.2, consistent with CHF exacerbation and underlying cardiomyopathy. Not indicative of ACS 3. Significant Hemoptysis resulting in significant drop in hemoglobin, hypotension, transferred to ICU. 2 units PRBC's transfused. 4. EGD revealed Multiple large Non-bleeding esophageal ulcers. One of the ulcers is deep and cratered. Not actively bleeding per GI notes. 5. History of Coronary artery disease, ischemic cardiomyopathy LVEF 30-35% per echo in 07/2017. 6. Hypertension, now hypotensive. 7. Paroxysmal afib - Currently NSR. Patient declines anticoagulation therapy 8. Longstanding noncompliance with medication and recommendations. PLAN: Continue protonix gtt. Antihypertensives on hold - metoprolol and losartan. Resume once BP improves Monitor Hbg. Maintain hbg around 10 due to ischemic cardiomyopathy. Echo completed and pending. Case discussed with Dr. Pulido. CARDIOLOGY ATTENDING ADDENDUM: The patient was seen and personally examined. Agree with Kim Rodriguez PA-C's findings and plans as documented above. Pt. currently extubated but still sedated. I will review echo when available. Laboratory Results Last 24 Hours Test 12/17/17 10:18 12/17/17 10:57 12/17/17 12:17 12/17/17 14:55 Troponin I 0.378 ng/ml Bedside Glucose 145 mg/dl White Blood Count 8.35 K/uL Red Blood Count 3.88 M/uL Hemoglobin 11.4 g/dL Hematocrit 34.0 % Mean Corpuscular Volume 87.6 fL Mean Corpuscular Hemoglobin 29.4 pg Mean Corpuscular Hemoglobin Concent 33.5 g/dl Platelet Count 118 K/uL Mean Platelet Volume 11.9 fL Neutrophils (%) (Auto) 76.5 % Lymphocytes (%) (Auto) 12.8 % Monocytes (%) (Auto) 9.7 % Eosinophils (%) (Auto) 0.6 % Basophils (%) (Auto) 0.2 % Neutrophils # (Auto) 6.38 K/uL Lymphocytes # (Auto) 1.07 K/uL Monocytes # (Auto) 0.81 K/uL Eosinophils # (Auto) 0.05 K/uL Basophils # (Auto) 0.02 K/uL RDW Standard Deviation 43.0 fL RDW Coefficient of Variation 13.4 % Immature Granulocyte % (Auto) 0.2 % Immature Granulocyte # (Auto) 0.02 K/uL Activated Partial Thromboplast Time 29.7 SECONDS Partial Thromboplastin Ratio 1.1 Test 12/17/17 15:59 12/17/17 16:14 12/17/17 18:15 12/17/17 19:03 Hemoglobin 10.7 g/dL 9.2 g/dL Hematocrit 31.4 % 27.0 % Lactic Acid Level 1.7 mmol/L Random Cortisol 39.66 mcg/dl Bedside Glucose 299 mg/dl 287 mg/dl Troponin I 0.283 ng/ml Test 12/17/17 20:05 12/17/17 21:31 12/17/17 22:37 12/17/17 23:51 Bedside Glucose 220 mg/dl 199 mg/dl 146 mg/dl Hemoglobin 9.7 g/dL Hematocrit 27.6 % Test 12/17/17 23:52 12/18/17 00:54 12/18/17 02:01 12/18/17 03:51 Bedside Glucose 150 mg/dl 145 mg/dl 145 mg/dl 159 mg/dl Test 12/18/17 03:52 12/18/17 05:57 12/18/17 08:02 12/18/17 08:30 White Blood Count 10.85 K/uL Red Blood Count 3.28 M/uL Hemoglobin 9.9 g/dL 10.2 g/dL Hematocrit 28.7 % 30.1 % Mean Corpuscular Volume 87.5 fL Mean Corpuscular Hemoglobin 30.2 pg Mean Corpuscular Hemoglobin Concent 34.5 g/dl RDW Standard Deviation 44.0 fL RDW Coefficient of Variation 13.7 % Platelet Count 98 K/uL Mean Platelet Volume 11.9 fL Platelet Estimate DECREASED Venous Blood pH 7.34 Venous Blood Partial Pressure CO2 44 mmHg Venous Blood Partial Pressure O2 42 mmHg Venous Blood HCO3 23 mmol/L Venous Blood Oxygen Saturation 73.1 % Venous Blood Base Excess -2.2 mEq/L Sodium Level 140 mmol/L Potassium Level 4.2 mmol/L Chloride Level 109 mmol/L Carbon Dioxide Level 25 mmol/L Anion Gap 6.0 mmol/L Blood Urea Nitrogen 62 mg/dl Creatinine 1.31 mg/dl Est Creatinine Clear Calc Drug Dose 57.3 ml/min Estimated GFR () 65.3 Estimated GFR (Non- 56.3 BUN/Creatinine Ratio 47.3 Random Glucose 155 mg/dl Calcium Level 7.1 mg/dl Phosphorus Level 3.1 mg/dl Magnesium Level 2.0 mg/dl Troponin I 0.159 ng/ml Bedside Glucose 123 mg/dl 118 mg/dl Activated Partial Thromboplast Time 26.7 SECONDS Partial Thromboplastin Ratio 1.0
--- NOTE | 2017-12-18 10:50 | ECHOCARDIOGRAM REPORT ---
*NOTICE TO RECEIVING CONSTITUTION PARTY AGENCY This information is strictly Confidential and protected under [place] law. [place] law prohibits you from making any further disclosure of this information unless further disclosure is expressly permitted by the written consent of the person to whom it pertains or is authorized by law. A general authorization for the release of medical or other information is not sufficient for this purpose. Hospital accepts no responsibility if the information is made available to any other person, INCLUDING THE PATIENT. Interpretation Summary * Name: ANURAG VERDUGO Study Date: 12/18/2017 06:32 AM BP: 81/47 mmHg * [facility] HR: 61 * : 1950 (M/d/yyyy) Gender: Male Height: 70 in * Age: 67 yrs Ethnicity: [place] Weight: 186 lb * Ordering Physician: Kong Sanches * Referring Physician: Self, Referred * Performed By: Polina Ruiz RCS * * Reason For Study: HYPOTENSION * BSA: 2.0 m2 * -- Conclusions -- * The left ventricle is mildly dilated. * There is a large size inferior, posterior, and septal myocardial infarction with severe hypokinesis to akinesis of the * segments. * Left ventricular systolic function is moderate to severely reduced. * The qualitative LV ejection fraction=30% * Aortic valve sclerosis moderate, without significant aortic valvular stenosis. * Doppler findings do not suggest pulmonary hypertension. * Diastolic dysfunction, Grade II (pseudonormalization pattern). * Compared to the prior study dated 07/21/17, the LV wall motion abnormalities and LVEF are unchanged. Mild to moderate mitral regurgitation was reported at that time, and no significant MR is detected on the present study. Procedure Details * A complete two-dimensional transthoracic echocardiogram was performed (2D, M-mode, Doppler and color flow Doppler). Left Ventricle * The left ventricle is mildly dilated. * There is normal left ventricular wall thickness. * Left ventricular systolic function is moderate to severely reduced. * The qualitative LV ejection fraction=30% * There is a large size inferior, posterior, and septal myocardial infarction with severe hypokinesis to akinesis of the segments. Right Ventricle * The right ventricle is normal size. * The right ventricular systolic function is normal. Atria * The left atrium is moderately dilated. * Right atrial size is normal. * There is no evidence of atrial septal defect, but resolution does not allow assessment for a patent foramen ovale. Mitral Valve * The mitral valve is normal. * There is no mitral valve stenosis. * Significant mitral regurgitation is absent. Tricuspid Valve * The tricuspid valve is normal. * There is no tricuspid stenosis. * Significant tricuspid regurgitation is absent. * Doppler findings do not suggest pulmonary hypertension. Aortic Valve * The aortic valve is trileaflet. * Aortic valve sclerosis moderate, without significant aortic valvular stenosis. * Aortic stenosis is absent. * There is no significant aortic regurgitation. Pulmonic Valve * The pulmonary valve is not well seen, but the Doppler examination is normal without significant regurgitation or stenosis. Great Vessels * The aortic root and proximal ascending aorta are normal sized. Pericardium/Pleural * There is no pericardial effusion. Great Vessels * Normal inferior vena cava diameter and respiratory variation suggests normal central venous pressure. Left Ventricular Diastolic Function * Diastolic dysfunction, Grade II (pseudonormalization pattern). MMode 2D Measurements and Calculations IVSd 1.3 cm IVSs 1.4 cm LVIDd 5.4 cm LVIDs 5.0 cm LVPWd 1.1 cm LVPWs 1.4 cm IVS/LVPW 1.3 FS 7.4 % EDV(Teich) 138.7 ml ESV(Teich) 116.1 ml EF(Teich) 16.3 % EDV(cubed) 153.6 ml ESV(cubed) 122.1 ml EF(cubed) 20.5 % % IVS thick 7.2 % % LVPW thick 31.4 % LV mass(C)d 259.9 grams LV mass(C)dI 128.4 grams/m\S\2 LV mass(C)s 290.8 grams LV mass(C)sI 143.7 grams/m\S\2 SV(Teich) 22.5 ml SI(Teich) 11.1 ml/m\S\2 SV(cubed) 31.5 ml SI(cubed) 15.6 ml/m\S\2 Ao root diam 2.6 cm Ao root area 5.1 cm\S\2 ACS 1.7 cm LA dimension 4.4 cm LA/Ao 1.7 LVOT diam 2.0 cm LVOT area 3.2 cm\S\2 LVAd ap4 45.9 cm\S\2 LVLd ap4 10.0 cm EDV(MOD-sp4) 169.9 ml EDV(sp4-el) 179.2 ml LVAs ap4 40.4 cm\S\2 LVLs ap4 9.1 cm ESV(MOD-sp4) 143.8 ml ESV(sp4-el) 152.8 ml EF(MOD-sp4) 15.3 % EF(sp4-el) 14.8 % LVAd ap2 62.9 cm\S\2 LVLd ap2 10.7 cm EDV(MOD-sp2) 295.9 ml EDV(sp2-el) 312.4 ml LVAs ap2 52.8 cm\S\2 LVLs ap2 10.1 cm ESV(MOD-sp2) 229.4 ml ESV(sp2-el) 234.4 ml EF(MOD-sp2) 22.5 % EF(sp2-el) 25.0 % LVLd %diff 7.2 % EDV(MOD-bp) 231.5 ml LVLs %diff 10.3 % ESV(MOD-bp) 185.5 ml EF(MOD-bp) 19.9 % SV(MOD-sp4) 26.1 ml SI(MOD-sp4) 12.9 ml/m\S\2 SV(MOD-sp2) 66.5 ml SI(MOD-sp2) 32.9 ml/m\S\2 SV(MOD-bp) 46.0 ml SI(MOD-bp) 22.7 ml/m\S\2 SV(sp4-el) 26.4 ml SI(sp4-el) 13.1 ml/m\S\2 SV(sp2-el) 78.0 ml SI(sp2-el) 38.5 ml/m\S\2 Doppler Measurements and Calculations MV E max marcus 81.7 cm/sec MV A max marcus 74.9 cm/sec MV E/A 1.1 MV P1/2t max marcus 75.1 cm/sec MV P1/2t 76.3 msec MVA(P1/2t) 2.9 cm\S\2 MV dec slope 288.0 cm/sec\S\2 MV dec time 0.23 sec Ao V2 max 96.0 cm/sec Ao max PG 3.7 mmHg Ao max PG (full) 0.63 mmHg AGUSTIN(V,A) 2.9 cm\S\2 AGUSTIN(V,D) 2.9 cm\S\2 LV V1 max PG 3.1 mmHg LV V1 max 87.4 cm/sec PA V2 max 132.0 cm/sec PA max PG 7.0 mmHg TR max marcus 236.3 cm/sec
--- NOTE | 2017-12-18 11:05 | Critical Care Progress Note ---
Critical Care Progress Note Date of Service Dec 18, 2017. ICU Day ICU Day Number: [address] Sanches Subjective Intubated and sedated, overnight underwent endoscopy, findings of severe esophagitis. Patient was to remain intubated in event of recurrent bleeding or possible further evaluation of esophageal pathology. Objective Constitutional: No fever, No chills, No sweats, No weight loss, No weakness, No fatigue, No problem reported Respiratory: Lungs clear to auscultation bilaterally Abdomen: soft, non-distended, no organomegaly Musculoskeletal: No clubbing cyanosis edema Neurologic: No focal deficits Assessment & Plan PLAN: Resp: Exertional dyspnea * Influenza negative * Likely cardiac in origin Extubate patient * Remained intubated overnight for possible early/repeat EGD secondary to blood loss versus further evaluation of pathology. CV: Ischemic cardiomyopathy * Troponin downtrending * Repeat limited echo to evaluate EF * Given elevation of troponins and hypotension and acute gastrointestinal bleeding decision was made to transfuse the patient closer to 10 given relative cardiac ischemia and EKG concerning for ischemic changes Hypotension * Resolved Fluids/Renal: Patient is nothing by mouth * Volume resuscitated secondary to profound volume depletion * Gentle hydration at risk for volume overload ID: Monitor fever curve GI/Nutrition: Hematemesis * Reviewed EGD findings * On PPI infusion * Discussed with GI service no plans for repeat scope today we'll proceed with extubation * Ordered type and cross holding 2 units Heme: Heparin infusion on hold * Mechanical thrombo-prophylaxis Endocrine: Hyperglycemia secondary to type 2 diabetes * Transition off insulin infusion to basal insulin maintain 2 iv's If H&H remained stable discontinue central venous catheter today I have personally spent 45 minutes of critical care time in the direct management of this patient. This is a life/limb threatening event. This includes time spent evaluating patient, direct bedside care, chart review, placing orders, interpretation of diagnostic studies, discussion with consultants, patient, and/or family members regarding treatment decisions, as well as other required patient management activities. This time is exclusive of all separately billable procedures, and teaching time and separate from and in addition to any other critical care service time. Data Medications: Current Inpatient Medications Medications (Trade) Dose Ordered Sig/Madison Route Start Time Stop Time Status Last Admin Dose Admin Acetaminophen (Tylenol Tab) 650 mg Q4H PRN PO 12/17/17 02:45 01/16/18 02:44 Al Hydrox/Mg Hydrox/Simethicone (Maalox Max Susp) 15 ml Q4H PRN PO 12/17/17 02:45 01/16/18 02:44 Magnesium Hydroxide (Milk Of Magnesia Susp) 30 ml Q12H PRN PO 12/17/17 02:45 01/16/18 02:44 Ondansetron HCl (Zofran Inj) 4 mg Q6H PRN IV 12/17/17 02:45 01/16/18 02:44 12/17/17 11:05 4 MG Polyethylene (Miralax Powder Packet) 17 gm DAILY PRN PO 12/17/17 02:45 01/16/18 02:44 Losartan Potassium (coZAAR TAB) 25 mg DAILY PO 12/17/17 09:00 01/16/18 08:59 Future Hold 12/17/17 08:07 25 MG Magnesium Chloride (Slow-Mag Tab) 128 mg DAILY PO 12/17/17 09:00 01/16/18 08:59 12/17/17 08:07 128 MG Metoprolol Tartrate (Lopressor Tab) 25 mg BID PO 12/17/17 09:00 01/16/18 08:59 Future Hold 12/17/17 08:07 25 MG Nitroglycerin (Nitrostat Tab) 0.4 mg PRN UT 12/17/17 02:45 01/16/18 02:44 Glucagon (Glucagon Inj) 1 mg UD PRN SQ 12/17/17 19:15 01/16/18 19:14 Glucose (Glucose 40% Gel) 15-30 GRAMS 15 GRAMS... UD PRN PO 12/17/17 19:15 01/16/18 19:14 Glucose (Glucose Chew Tab) 4-8 Tablets 4 Tabl... UD PRN PO 12/17/17 19:15 01/16/18 19:14 Miscellaneous (Iv Fluids Completed) 1 ea PRN PRN N/A 12/17/17 03:00 12/17/18 02:59 Calcium Carbonate (Tums Chew Tab) 500 mg Q8H PRN PO 12/17/17 03:45 01/16/18 03:44 Sodium Chloride 1,000 ml @ 100 mls/hr Q10H IV 12/17/17 12:30 01/16/18 12:29 12/17/17 23:15 200 MLS/HR Pantoprazole Sodium 40 mg/ Dextrose 100 ml @ 20 mls/hr Q5H IV 12/17/17 13:00 01/16/18 12:59 12/18/17 04:46 20 MLS/HR Miscellaneous Information (Icu Protocol For Hyperglycemia) 1 ea PRN PRN N/A 12/17/17 15:45 12/19/17 15:44 Insulin Aspart (novoLOG ASPART) SLIDING SCALE PCHS SC 12/17/17 17:15 01/16/18 17:14 Insulin Human Regular 250 units/ Sodium Chloride 252.5 ml @ 0 mls/hr Q24H IV 12/17/17 18:30 01/16/18 18:29 12/17/17 19:06 3 MLS/HR Propofol (Diprivan Iv Emulsion 100ml Vial) 1 dose UD PRN IV 12/17/17 19:30 12/20/17 19:29 12/18/17 04:46 1 DOSE Fentanyl Citrate (Fentanyl Inj) 25 mcg Q2H PRN IV 12/18/17 08:30 01/01/18 08:29 Vital Signs: Date Time Temp Pulse Resp B/P (MAP) Pulse Ox O2 Delivery O2 Flow Rate FiO2 12/18/17 09:30 66 14 126/62 (83) 100 Mechanical Ventilator 28 12/18/17 09:15 68 18 100 12/18/17 09:00 76 16 115/71 (86) 100 12/18/17 08:45 64 14 100 12/18/17 08:30 73 16 122/60 (80) 100 12/18/17 08:15 76 25 100 12/18/17 08:00 100 Mechanical Ventilator 28 12/18/17 08:00 36.7 68 22 115/57 (76) 100 Mechanical Ventilator 28 12/18/17 08:00 28 12/18/17 07:50 28 12/18/17 07:45 61 19 100 12/18/17 07:30 61 15 100/49 (66) 100 12/18/17 07:15 59 14 100 12/18/17 07:00 54 12 95/46 (62) 100 12/18/17 06:00 60 16 98/49 (69) 100 12/18/17 05:30 61 16 93/49 (64) 100 12/18/17 05:19 28 12/18/17 05:00 60 15 86/48 (63) 99 12/18/17 04:30 59 15 86/44 (63) 99 12/18/17 04:00 60 14 85/43 (60) 100 12/18/17 04:00 28 12/18/17 04:00 100 Mechanical Ventilator 28 12/18/17 04:00 36.9 12/18/17 03:30 62 19 91/46 (64) 99 12/18/17 03:00 60 12 81/47 (63) 100 12/18/17 02:30 36.9 65 24 96/50 100 12/18/17 02:30 66 23 96/50 (75) 100 12/18/17 02:21 28 12/18/17 02:00 64 12 100/56 (77) 100 12/18/17 01:30 75 25 104/52 (59) 100 12/18/17 01:30 36.8 74 23 104/52 100 12/18/17 01:15 75 22 94/50 (59) 100 12/18/17 01:00 36.9 79 25 96/51 100 12/18/17 01:00 78 12 96/51 (57) 100 12/18/17 00:59 35 12/18/17 00:45 79 15 105/56 (67) 100 12/18/17 00:40 79 19 91/56 (69) 100 12/18/17 00:40 36.9 69 23 91/56 100 12/18/17 00:31 82 24 95/52 (59) 100 12/18/17 00:29 36.9 79 17 117/64 100 12/18/17 00:08 35 12/18/17 00:01 36.9 12/18/17 00:01 83 22 117/64 (83) 100 12/17/17 23:59 100 Mechanical Ventilator 35 12/17/17 23:30 80 18 98/52 (71) 100 12/17/17 23:19 85 12 124/65 (76) 100 12/17/17 23:19 85 12 124/65 (84) 100 12/17/17 23:10 77 13 102/52 (60) 100 12/17/17 23:01 84 18 104/61 (75) 100 1/29/18 23:01 84 18 104/61 (68) 100 12/17/17 22:51 84 12 109/52 (71) 100 12/17/17 22:30 86 12 115/64 (81) 100 12/17/17 22:00 91 14 101/57 (72) 100 12/17/17 21:30 37.2 107 15 115/65 (82) 100 12/17/17 21:30 103 15 12/17/17 21:30 50 12/17/17 21:25 97 16 119/49 (58) 100 12/17/17 21:25 97 16 12/17/17 21:21 85 17 99/64 (80) 100 12/17/17 21:21 86 17 12/17/17 21:21 99/64 (80) 12/17/17 21:20 90 22 100 12/17/17 21:20 90 12/17/17 21:17 132/54 (68) 12/17/17 21:17 132/54 (68) 12/17/17 21:16 102 18 12/17/17 21:16 100 18 100 12/17/17 21:15 104 18 12/17/17 21:15 105 18 97 12/17/17 21:11 100/50 (67) 12/17/17 21:05 37.2 98 100/50 98 Mechanical Ventilator 50 12/17/17 20:00 98 Room Air 12/17/17 19:45 37.0 103 20 88/52 98 12/17/17 19:30 36.9 106 20 110/61 99 12/17/17 18:30 93 107/55 (72) 95 12/17/17 18:00 98 110/60 (77) 97 12/17/17 17:55 100 132/74 (93) 12/17/17 17:30 93 27 98/53 (68) 100 12/17/17 17:00 92 20 82/48 (59) 96 12/17/17 16:31 92 19 88/44 (59) 99 12/17/17 16:05 98 Room Air 12/17/17 15:30 92 24 93/54 (67) 98 Room Air 12/17/17 15:05 88 20 81/49 (60) 100 Room Air 12/17/17 15:01 88 21 72/47 (55) Room Air 12/17/17 14:49 36.7 89 21 84/48 (60) Room Air 12/17/17 14:31 89 87/54 (65) 12/17/17 14:14 80 77/49 (58) 74/42 (53) 12/17/17 13:51 89 74/48 (57) 12/17/17 12:58 88 83/51 (62) 12/17/17 12:58 88 83/51 (62) 12/17/17 12:14 80 78/36 (50) 12/17/17 12:00 Room Air 12/17/17 12:00 83 77/34 (48) 12/17/17 11:40 80 71/34 (46) 66/36 (46) 12/17/17 11:05 77 91/58 (69) 12/17/17 10:45 37.0 78 18 99/61 (74) 98 Room Air Laboratory Results: Last 24 Hours Test 12/17/17 10:57 12/17/17 12:17 12/17/17 14:55 12/17/17 15:59 Bedside Glucose 145 mg/dl White Blood Count 8.35 K/uL Red Blood Count 3.88 M/uL Hemoglobin 11.4 g/dL 10.7 g/dL Hematocrit 34.0 % 31.4 % Mean Corpuscular Volume 87.6 fL Mean Corpuscular Hemoglobin 29.4 pg Mean Corpuscular Hemoglobin Concent 33.5 g/dl Platelet Count 118 K/uL Mean Platelet Volume 11.9 fL Neutrophils (%) (Auto) 76.5 % Lymphocytes (%) (Auto) 12.8 % Monocytes (%) (Auto) 9.7 % Eosinophils (%) (Auto) 0.6 % Basophils (%) (Auto) 0.2 % Neutrophils # (Auto) 6.38 K/uL Lymphocytes # (Auto) 1.07 K/uL Monocytes # (Auto) 0.81 K/uL Eosinophils # (Auto) 0.05 K/uL Basophils # (Auto) 0.02 K/uL RDW Standard Deviation 43.0 fL RDW Coefficient of Variation 13.4 % Immature Granulocyte % (Auto) 0.2 % Immature Granulocyte # (Auto) 0.02 K/uL Activated Partial Thromboplast Time 29.7 SECONDS Partial Thromboplastin Ratio 1.1 Lactic Acid Level 1.7 mmol/L Random Cortisol 39.66 mcg/dl Test 12/17/17 16:14 12/17/17 18:15 12/17/17 19:03 12/17/17 20:05 Bedside Glucose 299 mg/dl 287 mg/dl 220 mg/dl Hemoglobin 9.2 g/dL Hematocrit 27.0 % Troponin I 0.283 ng/ml Test 12/17/17 21:31 12/17/17 22:37 12/17/17 23:51 12/17/17 23:52 Bedside Glucose 199 mg/dl 146 mg/dl 150 mg/dl Hemoglobin 9.7 g/dL Hematocrit 27.6 % Test 12/18/17 00:54 12/18/17 02:01 12/18/17 03:51 12/18/17 03:52 Bedside Glucose 145 mg/dl 145 mg/dl 159 mg/dl White Blood Count 10.85 K/uL Red Blood Count 3.28 M/uL Hemoglobin 9.9 g/dL Hematocrit 28.7 % Mean Corpuscular Volume 87.5 fL Mean Corpuscular Hemoglobin 30.2 pg Mean Corpuscular Hemoglobin Concent 34.5 g/dl RDW Standard Deviation 44.0 fL RDW Coefficient of Variation 13.7 % Platelet Count 98 K/uL Mean Platelet Volume 11.9 fL Platelet Estimate DECREASED Venous Blood pH 7.34 Venous Blood Partial Pressure CO2 44 mmHg Venous Blood Partial Pressure O2 42 mmHg Venous Blood HCO3 23 mmol/L Venous Blood Oxygen Saturation 73.1 % Venous Blood Base Excess -2.2 mEq/L Sodium Level 140 mmol/L Potassium Level 4.2 mmol/L Chloride Level 109 mmol/L Carbon Dioxide Level 25 mmol/L Anion Gap 6.0 mmol/L Blood Urea Nitrogen 62 mg/dl Creatinine 1.31 mg/dl Est Creatinine Clear Calc Drug Dose 57.3 ml/min Estimated GFR () 65.3 Estimated GFR (Non- 56.3 BUN/Creatinine Ratio 47.3 Random Glucose 155 mg/dl Calcium Level 7.1 mg/dl Phosphorus Level 3.1 mg/dl Magnesium Level 2.0 mg/dl Troponin I 0.159 ng/ml Test 12/18/17 05:57 12/18/17 08:02 12/18/17 08:30 Bedside Glucose 123 mg/dl 118 mg/dl Hemoglobin 10.2 g/dL Hematocrit 30.1 % Activated Partial Thromboplast Time 26.7 SECONDS Partial Thromboplastin Ratio 1.0
[2017-12-18] MEDS: SODIUM CHLORIDE 0.9% 1000ML 1,000 ML IV SCH ×2 (11:18→18:23)
[2017-12-18 11:53] LABS: HEMATOCRIT 28.7 % (42-52); HEMOGLOBIN 9.8 g/dL (14.0-18.0)
[2017-12-18] MEDS ORDERED: INSULIN GLARGINE SOLOSTAR 100 UNITS/ML 3 ML PEN SC ONE ×2 (12:30)
[2017-12-18] MEDS ORDERED: INSULIN ASPART 100 UNITS/ML 3 ML PEN SC SCH ×2 (13:30→18:01)
[2017-12-18] MEDS ORDERED: DEXTROSE 50% 50 ML SYR ONE (14:01)
--- NOTE | 2017-12-18 15:53 | Hospitalist Progress Note ---
Hospitalist Progress Note Date of Service Dec 18, 2017. Subjective Pt evaluation today including: conversation w/ patient Pain: no reported pain PO Intake: nothing by mouth secondary to continued workup Voiding: no voiding problems Attending: Dr. Carrillo This is a 67-year-old male that was admitted for shortness of breath and dyspnea with exertion. He is a brandon from the [facility]. He was doing well and then suddenly had onset of nausea and vomited bright red blood. He was taken emergently to the GI lab and found to have esophageal erosion. He had multiple large nonbleeding esophageal ulcers. One of the ulcers was deep and cratered. There was no active bleeding at the time of the EGD last evening around 8 PM. The duodenum appeared to be normal. He did receive two units of packed red blood cells. Hemoglobin has remained stable since the EGD. Patient denies any esophageal or abdominal pain. Patient was intubated for procedure yesterday and left on mechanical ventilator in the event that procedure had to be repeated. Patient denies any history of ethanol or tobacco abuse. He does not use smokeless tobacco. He denies any previous history of GI bleed. The patient did begin to have rigors today and was afebrile with a MAXIMUM TEMPERATURE of 98.2 Fahrenheit. He has no chest pain or tightness. He has no diarrhea. He does have a Bennett catheter in which reveals no hematuria. He has no bleeding around the teeth or gums. He has no conjunctival injection. The patient has no evidence of splinter hemorrhages. He has no other pertinent constitutional complaints. Constitutional: + chills, + weakness, No fever, No sweats, No weight loss Medications Current Inpatient Medications Medications (Trade) Dose Ordered Sig/Mad[place] Route Start Time Stop Time Status Last Admin Dose Admin Acetaminophen (Tylenol Tab) 650 mg Q4H PRN PO 12/17/17 02:45 01/16/18 02:44 Al Hydrox/Mg Hydrox/Simethicone (Maalox Max Susp) 15 ml Q4H PRN PO 12/17/17 02:45 01/16/18 02:44 Magnesium Hydroxide (Milk Of Magnesia Susp) 30 ml Q12H PRN PO 12/17/17 02:45 01/16/18 02:44 Ondansetron HCl (Zofran Inj) 4 mg Q6H PRN IV 12/17/17 02:45 01/16/18 02:44 12/17/17 11:05 4 MG Polyethylene (Miralax Powder Packet) 17 gm DAILY PRN PO 12/17/17 02:45 01/16/18 02:44 Losartan Potassium (coZAAR TAB) 25 mg DAILY PO 12/17/17 09:00 01/16/18 08:59 Future Hold 12/17/17 08:07 25 MG Magnesium Chloride (Slow-Mag Tab) 128 mg DAILY PO 12/17/17 09:00 01/16/18 08:59 12/17/17 08:07 128 MG Metoprolol Tartrate (Lopressor Tab) 25 mg BID PO 12/17/17 09:00 01/16/18 08:59 Future hold 12/17/17 08:07 25 MG Nitroglycerin (Nitrostat Tab) 0.4 mg PRN UT 12/17/17 02:45 01/16/18 02:44 Glucagon (Glucagon Inj) 1 mg UD PRN SQ 12/17/17 19:15 01/16/18 19:14 Glucose (Glucose 40% Gel) 15-30 GRAMS 15 GRAMS... UD PRN PO 12/17/17 19:15 01/16/18 19:14 Glucose (Glucose Chew Tab) 4-8 Tablets 4 Tabl... UD PRN PO 12/17/17 19:15 01/16/18 19:14 Miscellaneous (Iv Fluids Completed) 1 ea PRN PRN N/A 12/17/17 03:00 12/17/18 02:59 Calcium Carbonate (Tums Chew Tab) 500 mg Q8H PRN PO 12/17/17 03:45 01/16/18 03:44 Sodium Chloride 1,000 ml @ 100 mls/hr Q10H IV 12/17/17 12:30 01/16/18 12:29 12/18/17 11:18 100 MLS/HR Pantoprazole Sodium 40 mg/ Dextrose 100 ml @ 20 mls/hr Q5H IV 12/17/17 13:00 01/16/18 12:59 12/18/17 15:43 20 MLS/HR Miscellaneous Information (Icu Protocol For Hyperglycemia) 1 ea PRN PRN N/A 12/17/17 15:45 12/19/17 15:44 Insulin Aspart (novoLOG ASPART) SLIDING SCALE PCHS SC 12/17/17 17:15 12/18/17 18:00 Insulin Human Regular 250 units/ Sodium Chloride 252.5 ml @ 0 mls/hr Q24H IV 12/17/17 18:30 12/18/17 18:00 12/17/17 19:06 3 MLS/HR Propofol (Diprivan Iv Emulsion 100ml Vial) 1 dose UD PRN IV 12/17/17 19:30 12/20/17 19:29 12/18/17 04:46 1 DOSE Fentanyl Citrate (Fentanyl Inj) 25 mcg Q2H PRN IV 12/18/17 08:30 01/01/18 08:29 Miscellaneous Information (Dc Iv Insulin Infusion) 1 ea TODAY@1800 ONCE N/A 12/18/17 18:00 12/18/17 18:01 Insulin Glargine (Lantus Solostar Pen) see protocol Q12 SC 12/18/17 21:00 01/17/18 20:59 Insulin Aspart (novoLOG ASPART) Q4H SC 12/18/17 18:01 01/17/18 18:00 Objective Vital Signs Vital Signs - as noted below Laboratory Data - as noted below Physical Exam: General - NAD. Laying supine in bed. Pleasant. Patient is shivering. Afebrile. Eyes - No icterus, gaze conjugate ENT - Mucosa moist, no lesions or candidiasis. No evidence of current bleeding. No dried blood in the oral cavity Neck - Supple, No JVD Lungs - No bronchospasm, rales, or rhonchi.. Breath sounds distant but good aeration in all lung zones Heart - Regular, tachycardic in the one-teens Abdomen - Soft, NT, ND, BS present Extremities - No edema, pedal pulses intact Neuro - A&OX3 Date Time Temp Pulse Resp B/P (MAP) Pulse Ox O2 Delivery O2 Flow Rate FiO2 12/18/17 14:15 100 19 99 12/18/17 14:01 90 18 121/61 (81) 12/18/17 14:00 92 18 100 12/18/17 13:45 86 18 100 12/18/17 13:30 84 22 100 12/18/17 13:15 78 23 100 12/18/17 13:00 80 21 130/63 (85) 100 1/30/18 12:45 81 25 100 18 12:30 77 22 126/60 (82) 100 12/18/17 12:15 100 Mask 50 12/18/17 12:15 78 26 100 18 12:00 76 23 118/60 (79) 100 18 11:45 75 20 100 12/18/17 11:30 36.7 74 24 116/58 (77) 99 Mask 50 12/18/17 11:15 77 19 95 12/18/17 11:00 74 24 117/53 (74) 95 12/18/17 10:50 77 28 110/56 (74) 94 12/18/17 10:45 81 19 97 12/18/17 10:31 79 19 110/56 (74) 94 12/18/17 10:30 76 23 94 12/18/17 10:15 68 30 94 12/18/17 10:00 82 25 116/55 (75) 93 12/18/17 09:45 64 18 100 12/18/17 09:30 66 14 126/62 (83) 100 Mechanical Ventilator 28 12/18/17 09:15 68 18 100 12/18/17 09:00 76 16 115/71 (86) 100 12/18/17 08:45 64 14 100 12/18/17 08:30 73 16 122/60 (80) 100 12/18/17 08:15 76 25 100 12/18/17 08:00 100 Mechanical Ventilator 28 12/18/17 08:00 36.7 68 22 115/57 (76) 100 Mechanical Ventilator 28 12/18/17 08:00 Mechanical Ventilator 28 12/18/17 08:00 28 12/18/17 07:50 28 12/18/17 07:45 61 19 100 18 07:30 61 15 100/49 (66) 100 12/18/17 07:15 59 14 100 12/18/17 07:00 54 12 95/46 (62) 100 12/18/17 06:00 60 16 98/49 (69) 100 12/18/17 05:30 61 16 93/49 (64) 100 12/18/17 05:19 28 12/18/17 05:00 60 15 86/48 (63) 99 12/18/17 04:30 59 15 86/44 (63) 99 12/18/17 04:00 60 14 85/43 (60) 100 12/18/17 04:00 28 12/18/17 04:00 100 Mechanical Ventilator 28 12/18/17 04:00 36.9 12/18/17 03:30 62 19 91/46 (64) 99 12/18/17 03:00 60 12 81/47 (63) 100 12/18/17 02:30 36.9 65 24 96/50 100 12/18/17 02:30 66 23 96/50 (75) 100 12/18/17 02:21 28 12/18/17 02:00 64 12 100/56 (77) 100 12/18/17 01:30 75 25 104/52 (59) 100 12/18/17 01:30 36.8 74 23 104/52 100 12/18/17 01:15 75 22 94/50 (59) 100 12/18/17 01:00 36.9 79 25 96/51 100 12/18/17 01:00 78 12 96/51 (57) 100 12/18/17 00:59 35 12/18/17 00:45 79 15 105/56 (67) 100 12/18/17 00:40 79 19 91/56 (69) 100 12/18/17 00:40 36.9 69 23 91/56 100 12/18/17 00:31 82 24 95/52 (59) 100 12/18/17 00:29 36.9 79 17 117/64 100 12/18/17 00:08 35 12/18/17 00:01 36.9 12/18/17 00:01 83 22 117/64 (83) 100 12/17/17 23:59 100 Mechanical Ventilator 35 12/17/17 23:30 80 18 98/52 (71) 100 12/17/17 23:19 85 12 124/65 (76) 100 12/17/17 23:19 85 12 124/65 (84) 100 12/17/17 23:10 77 13 102/52 (60) 100 12/17/17 23:01 84 18 104/61 (75) 100 12/17/17 23:01 84 18 104/61 (68) 100 12/17/17 22:51 84 12 109/52 (71) 100 12/17/17 22:30 86 12 115/64 (81) 100 12/17/17 22:00 91 14 101/57 (72) 100 12/17/17 21:30 37.2 107 15 115/65 (82) 100 12/17/17 21:30 103 15 12/17/17 21:30 50 12/17/17 21:25 97 16 119/49 (58) 100 12/17/17 21:25 97 16 12/17/17 21:21 85 17 99/64 (80) 100 12/17/17 21:21 86 17 12/17/17 21:21 99/64 (80) 12/17/17 21:20 90 22 100 12/17/17 21:20 90 12/17/17 21:17 132/54 (68) 12/17/17 21:17 132/54 (68) 12/17/17 21:16 102 18 12/17/17 21:16 100 18 100 12/17/17 21:15 104 18 12/17/17 21:15 105 18 97 12/17/17 21:11 100/50 (67) 12/17/17 21:05 37.2 98 100/50 98 Mechanical Ventilator 50 12/17/17 20:00 98 Room Air 12/17/17 19:45 37.0 103 20 88/52 98 12/17/17 19:30 36.9 106 20 110/61 99 12/17/17 18:30 93 107/55 (72) 95 12/17/17 18:00 98 110/60 (77) 97 12/17/17 17:55 100 132/74 (93) 12/17/17 17:30 93 27 98/53 (68) 100 12/17/17 17:00 92 20 82/48 (59) 96 12/17/17 16:31 92 19 88/44 (59) 99 12/17/17 16:05 98 Room Air Laboratory Results Last 24 Hours Test 12/17/17 15:59 12/17/17 16:14 12/17/17 18:15 12/17/17 19:03 Hemoglobin 10.7 g/dL 9.2 g/dL Hematocrit 31.4 % 27.0 % Lactic Acid Level 1.7 mmol/L Random Cortisol 39.66 mcg/dl Bedside Glucose 299 mg/dl 287 mg/dl Troponin I 0.283 ng/ml Test 12/17/17 20:05 12/17/17 21:31 12/17/17 22:37 12/17/17 23:51 Bedside Glucose 220 mg/dl 199 mg/dl 146 mg/dl Hemoglobin 9.7 g/dL Hematocrit 27.6 % Test 12/17/17 23:52 12/18/17 00:54 12/18/17 02:01 12/18/17 03:51 Bedside Glucose 150 mg/dl 145 mg/dl 145 mg/dl 159 mg/dl Test 12/18/17 03:52 12/18/17 05:57 12/18/17 08:02 12/18/17 08:30 White Blood Count 10.85 K/uL Red Blood Count 3.28 M/uL Hemoglobin 9.9 g/dL 10.2 g/dL Hematocrit 28.7 % 30.1 % Mean Corpuscular Volume 87.5 fL Mean Corpuscular Hemoglobin 30.2 pg Mean Corpuscular Hemoglobin Concent 34.5 g/dl RDW Standard Deviation 44.0 fL RDW Coefficient of Variation 13.7 % Platelet Count 98 K/uL Mean Platelet Volume 11.9 fL Platelet Estimate DECREASED Venous Blood pH 7.34 Venous Blood Partial Pressure CO2 44 mmHg Venous Blood Partial Pressure O2 42 mmHg Venous Blood HCO3 23 mmol/L Venous Blood Oxygen Saturation 73.1 % Venous Blood Base Excess -2.2 mEq/L Sodium Level 140 mmol/L Potassium Level 4.2 mmol/L Chloride Level 109 mmol/L Carbon Dioxide Level 25 mmol/L Anion Gap 6.0 mmol/L Blood Urea Nitrogen 62 mg/dl Creatinine 1.31 mg/dl Est Creatinine Clear Calc Drug Dose 57.3 ml/min Estimated GFR () 65.3 Estimated GFR (Non- 56.3 BUN/Creatinine Ratio 47.3 Random Glucose 155 mg/dl Calcium Level 7.1 mg/dl Phosphorus Level 3.1 mg/dl Magnesium Level 2.0 mg/dl Troponin I 0.159 ng/ml Bedside Glucose 123 mg/dl 118 mg/dl Activated Partial Thromboplast Time 26.7 SECONDS Partial Thromboplastin Ratio 1.0 Test 12/18/17 11:33 12/18/17 11:44 12/18/17 12:44 12/18/17 14:45 Bedside Glucose 95 mg/dl 94 mg/dl Hemoglobin 9.8 g/dL Hematocrit 28.7 % Test 12/18/17 15:35 Assessment and Plan ESOPHAGEAL BLEEDING * EGD yesterday with multiple nonbleeding ulcerations. * Patient successfully extubated this morning * Continue to monitor with low tolerance for repeat EGD * Continue pantoprazole drip * Continues nothing by mouth pending diet orders from GI * Patient denies history of ethanol abuse, tobacco abuse, NSAID abuse. PULMONARY * Initial presentation was for dyspnea with exertion and shortness of breath at rest * Rapid antigen testing negative for influenza A and influenza B * Now oxygenating well on room air * Has not been able to ambulate secondary to acute illness from esophageal bleeding * No acute cardiopulmonary findings on chest x-ray * Continue to monitor ID * Patient developed rigors this afternoon but is afebrile * Repeat blood cultures 2 * Repeat chest x-ray * Monitor for possible mediastinitis although low on differential * Bennett catheter in place with no hematuria. Urine is clear. Continue Bennett catheter per nursing driven protocol CAD * History of ischemic cardiomyopathy * Echocardiogram unchanged but with areas of akinesis * Patient now tachycardic - restart beta citlali * Cardiology consulted * Troponins trending downward * Continue to monitor in ICU ANEMIA * Secondary to esophageal bleeding * GI following * EGD with no active bleeding * Continue pantoprazole drip * Received two units of packed red blood cells with no reaction within the first six hours. * Continue to follow serial H&H DIABETES MELLITUS TYPE 2 * Patient was on insulin drip - convert to basal insulin * Follow BSG's per ICU protocol * Check hemoglobin A1c with a.m. labs DVT PROPHYLAXIS * Avoid chemical prophylaxis secondary to esophageal bleeding * SCDs in place * Out of bed to chair and ambulate as tolerated with assistance Please refer to Dr. Carrillo's addendum for further recommendations
[2017-12-18] MEDS ORDERED: METOPROLOL TARTRATE 1 MG/ML VIAL ONE (16:04)
[2017-12-18] MEDS ORDERED: METOPROLOL TARTRATE 1 MG/ML VIAL IV STA (16:04)
[2017-12-18] MEDS ORDERED: METOPROLOL TARTRATE 25 MG TAB PO ONE (16:15)
--- NOTE | 2017-12-18 16:16 | Critical Care Progress Note ---
Critical Care Progress Note Date of Service Dec 18, 2017. Critical Care Progress Note S Patient complains of rigors, new rhythm on monitor: Sinus tachycardia No complaint of chest pain, shortness of breath, dizziness Patient reports low blood sugar, checks blood sugars at home ranges in the low 100s to 120's. States when he is in the hospital his blood sugars are was much higher, reports he blocked a new machine which both read the same. Also reports had an episode in [facility] in which his blood sugar was 80 he became right wrist felt uncomfortable and improved after administration of juice. O Reviewed EKG: Sinus tachycardia with ST segment changes concerning for ischemia due compared with previous [id number] blood sugar 85 Reviewed echocardiogram report : Essentially no change in wall motion abnormalities compared to previous. A/P Concern for myocardial ischemia: Discussed with cardiology: Tess will see in ICU Resume metoprolol Relative symptomatic hypoglycemia in the setting of long-standing elevated blood sugars Check A1c, previous A1c greater than 8 Concern for mediastinitis Recent EGD, findings consistent with severe esophagitis Will check chest x-ray and additional blood cultures Not febrile, will not add additional antibiotics at this time I believe mediastinitis is the lowest etiology on the differential at this time and risks of empiric antibiotic treatment outweigh the benefit Influenza negative would consider repeat testing in 48 hours if no improvement I have personally spent 35 minutes of critical care time in the direct management of this patient. This is a life/limb threatening event. This includes time spent evaluating patient, direct bedside care, chart review, placing orders, interpretation of diagnostic studies, discussion with consultants, patient, and/or family members regarding treatment decisions, as well as other required patient management activities. This time is exclusive of all separately billable procedures, and teaching time and separate from and in addition to any other critical care service time.
[2017-12-18 16:39] LABS: HEMATOCRIT 30.2 % (42-52); HEMOGLOBIN 10.1 g/dL (14.0-18.0); MEAN CORPUSCULAR HEMOGLOBIN 29.1 pg (25-34); MEAN CORPUSCULAR HGB CONC 33.4 g/dl (32-36); PLATELET COUNT 111 K/uL (130-400); RED CELL DISTRIBUTION WIDTH CV 13.9 % (11.5-14.5); RED CELL DISTRIBUTION WIDTH SD 44.4 fL (36.4-46.3); WHITE BLOOD COUNT 13.03 K/uL (4.8-10.8)
[2017-12-18 17:01] LABS: BASO % 0.1 %; BASO ABS # 0.01 K/uL (0-0.2); EOS % 0.2 %; EOS ABS # 0.02 K/uL (0-0.5); IG# 0.04 K/uL (0.00-0.02); LYMPH % 6.4 %; LYMPH ABS # 0.84 K/uL (1.2-3.4); MONO % 8.7 %; MONO ABS # 1.14 K/uL (0.11-0.59); NEUT % 84.3 %; NEUT ABS # 10.98 K/uL (1.4-6.5)
[2017-12-18] MEDS ORDERED: DC IV INSULIN INFUSION ONE (18:00)
[2017-12-18] MEDS ORDERED: METOPROLOL TARTRATE 1 MG/ML VIAL IV PRN (19:15)
--- NOTE | 2017-12-18 19:25 | DIAGNOSTIC IMAGING REPORT ---
SINGLE VIEW CHEST CLINICAL HISTORY: Respiratory failure. FINDINGS: An AP, portable, upright chest radiograph is compared to study performed earlier the same day 12/18/2017 and correlated with chest CT dated 06/01/2015. The examination is degraded by portable technique and patient rotation. The endotracheal tube has been removed. The patient is status post midline sternotomy. The heart is enlarged and there is atherosclerotic calcification of the thoracic aorta. The pulmonary vasculature is noncongested. Chronic interstitial thickening is similar to prior studies. Developing airspace consolidation suggestive the left lung base. No large pleural effusion or pneumothorax is identified. The skeletal structures are osteopenic. The bony thorax is grossly intact. IMPRESSION: 1. Cardiomegaly without radiographic evidence of congestive failure. 2. The endotracheal tube has been removed. 3. Suspect developing airspace consolidation at the left lung base. Clinical correlation will be required. Electronically signed by: Ziyad Obrien M.D. 12/18/2017 7:24 PM Dictated Date/Time: 12/18/2017 7:22 PM
[2017-12-18] MEDS ORDERED: PIPERACILL/TAZOBAC CONSULT ACTIVE PRN (20:30)
[2017-12-18] MEDS: INSULIN GLARGINE SOLOSTAR 100 UNITS/ML 3 ML PEN SC SCH (21:00)
[2017-12-18] MEDS: METOPROLOL TARTRATE 25 MG TAB PO SCH (21:05)
[2017-12-18] MEDS ORDERED: PIPERACILL/TAZOBAC IV 4.5 GM in DEXTROSE 5% 100ML 100 ML IV ONE (22:00)
[2017-12-19] VITALS (9 sets, daily range): BP systolic 103–117; BP diastolic 58–71; PULSE 90–105; TEMP 36.7–37.2; O2SAT 92–100; Ht 177.8 cm; Wt 90.0 kg
[2017-12-19] MEDS ORDERED: MAGNESIUM OXIDE 400 MG TAB PO ONE (01:00)
[2017-12-19] MEDS: INSULIN ASPART 100 UNITS/ML 3 ML PEN SC SCH ×6 (01:52→20:28)
[2017-12-19] MEDS: PANTOprazole INJ 40 MG in DEXTROSE 5% 100ML IV SCH ×2 (02:30→07:26)
[2017-12-19 04:28] LABS: HEMATOCRIT 26.3 % (42-52); MEAN CORPUSCULAR HEMOGLOBIN 30.1 pg (25-34); RED CELL DISTRIBUTION WIDTH CV 13.9 % (11.5-14.5); WHITE BLOOD COUNT 9.86 K/uL (4.8-10.8)
[2017-12-19 04:34] LABS: MEAN CORPUSCULAR HGB CONC 34.2 g/dl (32-36); MEAN PLATELET VOLUME 11.6 fL (7.4-10.4); PLATELET COUNT 94 K/uL (130-400)
[2017-12-19] MEDS: PIPERACILL/TAZOBAC IV 4.5 GM in DEXTROSE 5% 100ML 100 ML IV SCH ×3 (04:40→20:26)
[2017-12-19 04:55] LABS: ALBUMIN 2.2 gm/dl (3.4-5.0); CALCIUM 7.3 mg/dl (8.5-10.1); CREATININE 1.17 mg/dl (0.60-1.40); PHOSPHORUS 2.9 mg/dl (2.5-4.9); POTASSIUM 3.8 mmol/L (3.5-5.1); TOTAL PROTEIN 4.8 gm/dl (6.4-8.2)
[2017-12-19] MEDS: SODIUM CHLORIDE 0.9% 1000ML 1,000 ML IV SCH ×2 (06:33→17:13)
[2017-12-19 08:04] LABS: HEMATOCRIT 26.9 % (42-52); HEMOGLOBIN 9.1 g/dL (14.0-18.0); MEAN CELL VOLUME 88.5 fL (80-100); MEAN CORPUSCULAR HEMOGLOBIN 29.9 pg (25-34); MEAN CORPUSCULAR HGB CONC 33.8 g/dl (32-36); RED CELL DISTRIBUTION WIDTH CV 14.2 % (11.5-14.5); RED CELL DISTRIBUTION WIDTH SD 46.2 fL (36.4-46.3); WHITE BLOOD COUNT 8.13 K/uL (4.8-10.8)
[2017-12-19 08:10] LABS: MEAN PLATELET VOLUME 11.9 fL (7.4-10.4); PLATELET COUNT 94 K/uL (130-400)
--- NOTE | 2017-12-19 08:15 | Critical Care Progress Note ---
Critical Care Progress Note Date of Service Dec 19, 2017. Attending Dr. Sanches Subjective No overnight events. Chills and rigors resolved. Difficulty falling and staying asleep. States that he has not slept since admission - "can't get my brain to stop". No other acute complaints Objective Vital Signs - as noted below Laboratory Data - as noted below Physical Exam: General - NAD Eyes - No icterus, gaze conjugate ENT - Mucosa moist, no lesions or candidiasis Neck - Supple, No JVD. Dressing dry and intact - CVC removed Lungs - No bronchospasm, rales, or rhonchi. Heart - Regular, rate controlled Abdomen - Soft, NT, ND, BS present Extremities - No edema, pedal pulses intact Neuro - A&OX3 Assessment & Plan HEMATEMESIS WITH ESOPHAGEAL BLEEDING * EGD with Dr. Garcia 12/17/17 with multiple areas of esophageal erosion but no active bleeding * Received two units of packed red blood cells * Right Mac IJ placed 12/17/17; removed 12/19/17 * Continue pantoprazole 40 mg by mouth twice a day * Follow-up EGD as an outpatient in two weeks * Start full liquid diet and advance as tolerated * Decrease IV fluids to normal saline at 75 mL per hour * Hemodynamically stable * Okay to transfer to telemetry from a critical care medicine standpoint CAD * Cardiology following * Tachycardia yesterday with ST changes * Troponin has trended down * No chest pain or tightness * Echo with no significant change but with some akinesis * Outpatient follow-up with cardiology ENDOCRINE * deputy sheriff/investigator consulted * Hemoglobin A1c 7.0 * Continue Lantus * Continue sliding scale insulin * Discontinue Bennett catheter today ID * Rigors yesterday but afebrile * Blood cultures sent and pending 2 * Chest x-ray with question of left lower lobe consolidation * Started on piperacillin/tazobactam 12/18/17 - would treat for a total of seven days * Repeat chest x-ray tomorrow morning * Unlikely the patient has mediastinitis but continue to monitor IV ACCESS * Peripheral IVs in place * Right IJ Mac catheter removed today DVT PROPHYLAXIS * Ambulate in the halls today * No chemical prophylaxis secondary to esophageal bleeding * Continue TEDs/SCDs Thank you for including us in the care of this patient. CCT: 0 minutes. Level II inpatient bill I have personally evaluated and examined this patient. I agree with assessment and plan of Marie Gaxiola PA-C No chest pain no dyspnea, will start liquid diet today progress as tolerated. Discontinue central line today Consults & Procedures Consultants: Gastroenterology - Dr. Garcia Lead Based Paint Technician - Dr. Sanches deputy sheriff/investigator Procedures: Right IJ MAC Catheter placed 12/17/17 Removal of MAC Catheter 12/19/[address] Garcia - 12/17/17 Echocardiogram 12/18/17 Data Medications: Current Inpatient Medications Medications (Trade) Dose Ordered Sig/[place] Route Start Time Stop Time Status Last Admin Dose Admin Acetaminophen (Tylenol Tab) 650 mg Q4H PRN PO 12/17/17 02:45 01/16/18 02:44 Al Hydrox/Mg Hydrox/Simethicone (Maalox Max Susp) 15 ml Q4H PRN PO 12/17/17 02:45 01/16/18 02:44 Magnesium Hydroxide (Milk Of Magnesia Susp) 30 ml Q12H PRN PO 12/17/17 02:45 01/16/18 02:44 Ondansetron HCl (Zofran Inj) 4 mg Q6H PRN IV 12/17/17 02:45 01/16/18 02:44 12/17/17 11:05 4 MG Polyethylene (Miralax Powder Packet) 17 gm DAILY PRN PO 12/17/17 02:45 01/16/18 02:44 Losartan Potassium (coZAAR TAB) 25 mg DAILY PO 12/17/17 09:00 01/16/18 08:59 Future Hold 12/17/17 08:07 25 MG Magnesium Chloride (Slow-Mag Tab) 128 mg DAILY PO 12/17/17 09:00 01/16/18 08:59 12/17/17 08:07 128 MG Metoprolol Tartrate (Lopressor Tab) 25 mg BID PO 12/17/17 09:00 01/16/18 08:59 Future hold 12/18/17 21:05 25 MG Nitroglycerin (Nitrostat Tab) 0.4 mg PRN UT 12/17/17 02:45 01/16/18 02:44 Glucagon (Glucagon Inj) 1 mg UD PRN SQ 12/17/17 19:15 01/16/18 19:14 Glucose (Glucose 40% Gel) 15-30 GRAMS 15 GRAMS... UD PRN PO 12/17/17 19:15 01/16/18 19:14 12/18/17 18:19 15 GM Glucose (Glucose Chew Tab) 4-8 Tablets 4 Tabl... UD PRN PO 12/17/17 19:15 01/16/18 19:14 Miscellaneous (Iv Fluids Completed) 1 ea PRN PRN N/A 12/17/17 03:00 12/17/18 02:59 Calcium Carbonate (Tums Chew Tab) 500 mg Q8H PRN PO 12/17/17 03:45 01/16/18 03:44 Sodium Chloride 1,000 ml @ 100 mls/hr Q10H IV 12/17/17 12:30 01/16/18 12:29 12/19/17 06:33 100 MLS/HR Pantoprazole Sodium 40 mg/ Dextrose 100 ml @ 20 mls/hr Q5H IV 12/17/17 13:00 01/16/18 12:59 12/19/17 07:26 20 MLS/HR Miscellaneous Information (Icu Protocol For Hyperglycemia) 1 ea PRN PRN N/A 12/17/17 15:45 12/19/17 15:44 Propofol (Diprivan Iv Emulsion 100ml Vial) 1 dose UD PRN IV 12/17/17 19:30 12/20/17 19:29 12/18/17 04:46 1 DOSE Fentanyl Citrate (Fentanyl Inj) 25 mcg Q2H PRN IV 12/18/17 08:30 01/01/18 08:29 Insulin Glargine (Lantus Solostar Pen) see protocol Q12 SC 12/18/17 21:00 01/17/18 20:59 Insulin Aspart (novoLOG ASPART) Q4H SC 12/18/17 18:01 01/17/18 18:00 Metoprolol Tartrate (Lopressor Iv) 5 mg Q5M PRN IV 12/18/17 19:15 01/17/18 19:14 12/18/17 20:29 5 MG Miscellaneous Information (Consult) 1 ea UD PRN N/A 12/18/17 20:30 12/28/17 20:29 Piperacillin Sod/ Tazobactam Sod 4.5 gm/Dextrose 120 ml @ 30 mls/hr Q8H IV 12/19/17 04:00 2/18 21:59 12/19/17 04:40 30 MLS/HR Vital Signs: Date Time Temp Pulse Resp B/P (MAP) Pulse Ox O2 Delivery O2 Flow Rate FiO2 12/19/17 06:00 100 23 107/64 (78) 92 Nasal Cannula 2.0 12/19/17 04:00 Nasal Cannula 2.0 12/19/17 04:00 36.7 104 18 111/59 (76) 99 Nasal Cannula 2.0 12/19/17 02:00 105 17 109/65 (80) 100 Nasal Cannula 2.0 12/19/17 00:01 37.0 101 14 103/61 (75) 98 Nasal Cannula 2.0 12/18/17 23:59 Nasal Cannula 2.0 12/18/17 22:00 104 24 115/69 (84) 100 12/18/17 21:01 104 25 105/60 (75) 98 Nasal Cannula 2.0 12/18/17 20:30 37.3 113 25 114/62 (79) 98 12/18/17 20:29 113 116/62 12/18/17 20:22 114 24 116/62 (80) 98 12/18/17 20:00 Nasal Cannula 3.0 12/18/17 19:00 108 29 111/59 (76) 100 12/18/17 18:00 103 20 108/55 (72) 99 12/18/17 17:00 99 23 111/57 (75) 97 12/18/17 16:30 96 20 110/56 (74) 100 12/18/17 16:08 120 121/63 12/18/17 16:00 37.0 113 25 121/63 (82) 99 12/18/17 16:00 Nasal Cannula 3.0 12/18/17 15:30 115 26 124/63 (83) 95 12/18/17 15:01 37.3 111 22 127/68 (87) 97 Nasal Cannula 3.0 12/18/17 14:15 100 19 99 12/18/17 14:01 90 18 121/61 (81) 12/18/17 14:00 92 18 100 12/18/17 13:45 86 18 100 12/18/17 13:30 84 22 100 12/18/17 13:15 78 23 100 12/18/17 13:00 80 21 130/63 (85) 100 12/18/17 12:45 81 25 100 12/18/17 12:30 77 22 126/60 (82) 100 12/18/17 12:15 100 Mask 50 12/18/17 12:15 78 26 100 12/18/17 12:00 76 23 118/60 (79) 100 12/18/17 11:45 75 20 100 12/18/17 11:30 36.7 74 24 116/58 (77) 99 Mask 50 12/18/17 11:15 77 19 95 12/18/17 11:00 74 24 117/53 (74) 95 12/18/17 10:50 77 28 110/56 (74) 94 12/18/17 10:45 81 19 97 12/18/17 10:31 79 19 110/56 (74) 94 12/18/17 10:30 76 23 94 12/18/17 10:15 68 30 94 12/18/17 10:00 82 25 116/55 (75) 93 12/18/17 09:45 64 18 100 12/18/17 09:30 66 14 126/62 (83) 100 Mechanical Ventilator 28 12/18/17 09:15 68 18 100 12/18/17 09:00 76 16 115/71 (86) 100 12/18/17 08:45 64 14 100 12/18/17 08:30 73 16 122/60 (80) 100 12/18/17 08:15 76 25 100 Laboratory Results: Last 24 Hours Test 12/18/17 08:30 12/18/17 11:33 12/18/17 11:44 12/18/17 12:44 Hemoglobin 10.2 g/dL 9.8 g/dL Hematocrit 30.1 % 28.7 % Activated Partial Thromboplast Time 26.7 SECONDS Partial Thromboplastin Ratio 1.0 Bedside Glucose 95 mg/dl 94 mg/dl Test 12/18/17 13:49 12/18/17 15:11 12/18/17 16:12 12/18/17 16:17 Bedside Glucose 70 mg/dl 87 mg/dl 100 mg/dl White Blood Count 13.03 K/uL Red Blood Count 3.47 M/uL Hemoglobin 10.1 g/dL Hematocrit 30.2 % Mean Corpuscular Volume 87.0 fL Mean Corpuscular Hemoglobin 29.1 pg Mean Corpuscular Hemoglobin Concent 33.4 g/dl Platelet Count 111 K/uL Mean Platelet Volume 12.0 fL Neutrophils (%) (Auto) 84.3 % Lymphocytes (%) (Auto) 6.4 % Monocytes (%) (Auto) 8.7 % Eosinophils (%) (Auto) 0.2 % Basophils (%) (Auto) 0.1 % Neutrophils # (Auto) 10.98 K/uL Lymphocytes # (Auto) 0.84 K/uL Monocytes # (Auto) 1.14 K/uL Eosinophils # (Auto) 0.02 K/uL Basophils # (Auto) 0.01 K/uL RDW Standard Deviation 44.4 fL RDW Coefficient of Variation 13.9 % Immature Granulocyte % (Auto) 0.3 % Immature Granulocyte # (Auto) 0.04 K/uL Estimated Average Glucose 154 mg/dl Hemoglobin A1c 7.0 % Troponin I 0.153 ng/ml Test 12/18/17 18:14 12/18/17 18:30 12/18/17 18:33 12/18/17 19:11 Bedside Glucose 65 mg/dl 75 mg/dl 70 mg/dl Urine Color YELLOW Urine Appearance CLEAR Urine pH 5.0 Urine Specific [place] 1.025 Urine Protein NEG Urine Glucose (UA) NEG Urine Ketones TRACE Urine Occult Blood 2+ Urine Nitrite NEG Urine Bilirubin NEG Urine Urobilinogen NEG Urine Leukocyte Esterase SMALL Urine WBC (Auto) 1-5 /hpf Urine RBC (Auto) 10-30 /hpf Urine Hyaline Casts (Auto) 1-5 /lpf Urine Epithelial Cells (Auto) 5-10 /lpf Urine Bacteria (Auto) NEG Test 12/18/17 20:04 12/18/17 21:03 12/18/17 21:57 12/19/17 01:50 Bedside Glucose 88 mg/dl 73 mg/dl 75 mg/dl 84 mg/dl Test 12/19/17 04:07 12/19/17 07:23 White Blood Count 9.86 K/uL 8.13 K/uL Red Blood Count 2.99 M/uL 3.04 M/uL Hemoglobin 9.0 g/dL 9.1 g/dL Hematocrit 26.3 % 26.9 % Mean Corpuscular Volume 88.0 fL 88.5 fL Mean Corpuscular Hemoglobin 30.1 pg 29.9 pg Mean Corpuscular Hemoglobin Concent 34.2 g/dl 33.8 g/dl RDW Standard Deviation 45.0 fL 46.2 fL RDW Coefficient of Variation 13.9 % 14.2 % Platelet Count 94 K/uL Mean Platelet Volume 11.6 fL Sodium Level 140 mmol/L Potassium Level 3.8 mmol/L Chloride Level 111 mmol/L Carbon Dioxide Level 25 mmol/L Anion Gap 4.0 mmol/L Blood Urea Nitrogen 39 mg/dl Creatinine 1.17 mg/dl Est Creatinine Clear Calc Drug Dose 64.1 ml/min Estimated GFR () 74.9 Estimated GFR (Non- 64.6 BUN/Creatinine Ratio 33.8 Random Glucose 116 mg/dl Calcium Level 7.3 mg/dl Phosphorus Level 2.9 mg/dl Magnesium Level 2.0 mg/dl Total Bilirubin 0.7 mg/dl Direct Bilirubin 0.2 mg/dl Aspartate Amino Transf (AST/SGOT) 116 U/L Alanine Aminotransferase (ALT/SGPT) 23 U/L Alkaline Phosphatase 46 U/L Total Protein 4.8 gm/dl Albumin 2.2 gm/dl
[2017-12-19] MEDS: MAGNESIUM CHLORIDE 64MG DELAYED REL TAB PO SCH (08:38)
[2017-12-19] MEDS: METOPROLOL TARTRATE 25 MG TAB PO SCH ×2 (08:38→20:27)
[2017-12-19] MEDS: INSULIN GLARGINE SOLOSTAR 100 UNITS/ML 3 ML PEN SC SCH ×2 (08:39→18:17)
--- NOTE | 2017-12-19 09:12 | Hospitalist Progress Note ---
Hospitalist Progress Note Date of Service Dec 19, 2017. Subjective Pt evaluation today including: conversation w/ patient, conversation w/ family (significant other at bedside), physical exam, chart review, lab review, review of studies Pain: Back pain PO Intake: Clear liquids, tolerating Voiding: leonardo catheter in place The patient was seen and examined this morning. Pt reports feeling very tired today, has not slept well x 2 days. He notes that he commonly has this problem when he is admitted to the hospital. He reports being able to tolerate clear liquids today although he has had to intermittent bouts of nausea, between his breakfast and lunch without vomiting. He reports having a much better day today compared to yesterday. He denies any chest pain, indigestion, shortness of breath, headache, palpitation, flutter, fevers, sweats, chills. His significant other, , is present during our visit - all questions and concerns were updated at bedside. ROS: Constitutional: No fever, sweats or chills Eyes: No diplopia, no worsening or blurred vision ENT: normal hearing, no trouble swallowing Respiratory: No cough, sputum, dyspnea at rest or on exertion Cardiovascular: No chest pain, tightness or palpitations Abdomen: + intermittent nausea, no vomiting, + passing flatus, no bowel movement today. Musculoskeletal: No joint pain, calf pain, swelling Neurologic: No weakness, numbness/tingling, or balance problems Psychiatric: No anxiety or depression Skin: No rash or itch Objective Vital Signs Date Time Temp Pulse Resp B/P (MAP) Pulse Ox O2 Delivery O2 Flow Rate FiO2 12/19/17 06:00 100 23 107/64 (78) 92 Nasal Cannula 2.0 12/19/17 04:00 Nasal Cannula 2.0 12/19/17 04:00 36.7 104 18 111/59 (76) 99 Nasal Cannula 2.0 12/19/17 02:00 105 17 109/65 (80) 100 Nasal Cannula 2.0 12/19/17 00:01 37.0 101 14 103/61 (75) 98 Nasal Cannula 2.0 12/18/17 23:59 Nasal Cannula 2.0 12/18/17 22:00 104 24 115/69 (84) 100 12/18/17 21:01 104 25 105/60 (75) 98 Nasal Cannula 2.0 12/18/17 20:30 37.3 113 25 114/62 (79) 98 18 20:29 113 116/62 12/18/17 20:22 114 24 116/62 (80) 98 12/18/17 20:00 Nasal Cannula 3.0 12/18/17 19:00 108 29 111/59 (76) 100 12/18/17 18:00 103 20 108/55 (72) 99 12/18/17 17:00 99 23 111/57 (75) 97 12/18/17 16:30 96 20 110/56 (74) 100 12/18/17 16:08 120 121/63 12/18/17 16:00 37.0 113 25 121/63 (82) 99 12/18/17 16:00 Nasal Cannula 3.0 12/18/17 15:30 115 26 124/63 (83) 95 12/18/17 15:01 37.3 111 22 127/68 (87) 97 Nasal Cannula 3.0 12/18/17 14:15 100 19 99 12/18/17 14:01 90 18 121/61 (81) 12/18/17 14:00 92 18 100 12/18/17 13:45 86 18 100 12/18/17 13:30 84 22 100 12/18/17 13:15 78 23 100 12/18/17 13:00 80 21 130/63 (85) 100 12/18/17 12:45 81 25 100 12/18/17 12:30 77 22 126/60 (82) 100 18 12:15 100 Mask 50 12/18/17 12:15 78 26 100 12/18/17 12:00 76 23 118/60 (79) 100 18 11:45 75 20 100 12/18/17 11:30 36.7 74 24 116/58 (77) 99 Mask 50 12/18/17 11:15 77 19 95 18 11:00 74 24 117/53 (74) 95 12/18/17 10:50 77 28 110/56 (74) 94 12/18/17 10:45 81 19 97 12/18/17 10:31 79 19 110/56 (74) 94 12/18/17 10:30 76 23 94 12/18/17 10:15 68 30 94 12/18/17 10:00 82 25 116/55 (75) 93 12/18/17 09:45 64 18 100 12/18/17 09:30 66 14 126/62 (83) 100 Mechanical Ventilator 28 12/18/17 09:15 68 18 100 12/18/17 09:00 76 16 115/71 (86) 100 Physical Exam Notes: General: awake, alert, no apparent distress, drinking clear liquids Head: Normocephalic, atraumatic ENT: PERRL, EOMI, no pharyngeal exudate, mucous membranes moist, + dressing over R neck c/d/i from central catheter placement now removed Chest: Clear to auscultation, on room air, no adventitious breath sounds Cardiac: Slightly tachycardic, HR mid 90s, + systolic murmur, no JVD, normal peripheral pulses, good capillary refill Abdominal: NABS x 4 quadrants, soft, nontender to palpation, no rebound, guarding or tenderness Extremities: Normal inspection, no peripheral edema or erythema, calfs nontender to palpation Psych: Normal mood and affect Neuro: AAO x 3, speech is clear, no peripheral sensory deficits Laboratory Results Last 24 Hours Test 12/18/17 11:33 12/18/17 11:44 12/18/17 12:44 12/18/17 13:49 Bedside Glucose 95 mg/dl 94 mg/dl 70 mg/dl Hemoglobin 9.8 g/dL Hematocrit 28.7 % Test 12/18/17 15:11 12/18/17 16:12 12/18/17 16:17 12/18/17 18:14 Bedside Glucose 87 mg/dl 100 mg/dl 65 mg/dl White Blood Count 13.03 K/uL Red Blood Count 3.47 M/uL Hemoglobin 10.1 g/dL Hematocrit 30.2 % Mean Corpuscular Volume 87.0 fL Mean Corpuscular Hemoglobin 29.1 pg Mean Corpuscular Hemoglobin Concent 33.4 g/dl Platelet Count 111 K/uL Mean Platelet Volume 12.0 fL Neutrophils (%) (Auto) 84.3 % Lymphocytes (%) (Auto) 6.4 % Monocytes (%) (Auto) 8.7 % Eosinophils (%) (Auto) 0.2 % Basophils (%) (Auto) 0.1 % Neutrophils # (Auto) 10.98 K/uL Lymphocytes # (Auto) 0.84 K/uL Monocytes # (Auto) 1.14 K/uL Eosinophils # (Auto) 0.02 K/uL Basophils # (Auto) 0.01 K/uL RDW Standard Deviation 44.4 fL RDW Coefficient of Variation 13.9 % Immature Granulocyte % (Auto) 0.3 % Immature Granulocyte # (Auto) 0.04 K/uL Estimated Average Glucose 154 mg/dl Hemoglobin A1c 7.0 % Troponin I 0.153 ng/ml Test 12/18/17 18:30 12/18/17 18:33 12/18/17 19:11 12/18/17 20:04 Urine Color YELLOW Urine Appearance CLEAR Urine pH 5.0 Urine Specific [place] 1.025 Urine Protein NEG Urine Glucose (UA) NEG Urine Ketones TRACE Urine Occult Blood 2+ Urine Nitrite NEG Urine Bilirubin NEG Urine Urobilinogen NEG Urine Leukocyte Esterase SMALL Urine WBC (Auto) 1-5 /hpf Urine RBC (Auto) 10-30 /hpf Urine Hyaline Casts (Auto) 1-5 /lpf Urine Epithelial Cells (Auto) 5-10 /lpf Urine Bacteria (Auto) NEG Bedside Glucose 75 mg/dl 70 mg/dl 88 mg/dl Test 12/18/17 21:03 12/18/17 21:57 12/19/17 01:50 12/19/17 04:07 Bedside Glucose 73 mg/dl 75 mg/dl 84 mg/dl White Blood Count 9.86 K/uL Red Blood Count 2.99 M/uL Hemoglobin 9.0 g/dL Hematocrit 26.3 % Mean Corpuscular Volume 88.0 fL Mean Corpuscular Hemoglobin 30.1 pg Mean Corpuscular Hemoglobin Concent 34.2 g/dl RDW Standard Deviation 45.0 fL RDW Coefficient of Variation 13.9 % Platelet Count 94 K/uL Mean Platelet Volume 11.6 fL Sodium Level 140 mmol/L Potassium Level 3.8 mmol/L Chloride Level 111 mmol/L Carbon Dioxide Level 25 mmol/L Anion Gap 4.0 mmol/L Blood Urea Nitrogen 39 mg/dl Creatinine 1.17 mg/dl Est Creatinine Clear Calc Drug Dose 64.1 ml/min Estimated GFR () 74.9 Estimated GFR (Non- 64.6 BUN/Creatinine Ratio 33.8 Random Glucose 116 mg/dl Calcium Level 7.3 mg/dl Phosphorus Level 2.9 mg/dl Magnesium Level 2.0 mg/dl Total Bilirubin 0.7 mg/dl Direct Bilirubin 0.2 mg/dl Aspartate Amino Transf (AST/SGOT) 116 U/L Alanine Aminotransferase (ALT/SGPT) 23 U/L Alkaline Phosphatase 46 U/L Total Protein 4.8 gm/dl Albumin 2.2 gm/dl Test 12/19/17 07:23 White Blood Count 8.13 K/uL Red Blood Count 3.04 M/uL Hemoglobin 9.1 g/dL Hematocrit 26.9 % Mean Corpuscular Volume 88.5 fL Mean Corpuscular Hemoglobin 29.9 pg Mean Corpuscular Hemoglobin Concent 33.8 g/dl RDW Standard Deviation 46.2 fL RDW Coefficient of Variation 14.2 % Platelet Count 94 K/uL Mean Platelet Volume 11.9 fL Assessment and Plan 67 M with PMHx of PAF, ischemic CM and chronic systolic CHF with EF of 30-35% most recent echocardiogram being 2016, DM II uncontrolled, hyperthyroidism, diabetic retinopathy, HTN, HLD admitted with acute CHF exacerbation. Troponin was noted to be slightly elevated and started on heparin gtt. Subsequently the pt developed gross hematemesis with bright red blood. He was initially hypotensive which was resolved with administration of IV fluids and holding of futher IV lasix. Gastroenterology performed an emergent EGD once pressures stabilized, on 12/18, and found extensive esophageal erosion. He had multiple large nonbleeding esophageal ulcers, one of which was deep and cratered. There was no active bleeding at the time of the EGD. He has recieved 2 U of PRBC on . Pt was intubated for EGD on 12/17, left on intubation overnight in case of needs for repeat procedure, and successfully extubated on 12/18. Acute Gastrointestinal bleed Esophageal Erosion - GI on board - s/p egd, protonix gtt switched to 40 mg po BID, add carafate suspension ( will need at dc) - Monitor H&H, stable - GI allowed full liquid diet today, advance as tolerated - Plan for repeat EGD in 2 week's time to re-eval ulcer and to obtain biopsies Acute Anemia - Secondary to esophageal bleeding - EGD without active bleeding, on protonix - S/p 2 U PRBCs on 12/17, follow serial H&H Acute on chronic systolic and diastolic CHF Ischemic Cardiomyopathy Elevated Troponin - resolved HTN HLD - Diuresed at time of admission with ~ 3 L outs, held then with acute onset of GI bleed and hypotension - now resolved. - Strict I/O with leonardo cath in place, daily weight, NPO until GI recs diet - Off heparin gtt - Cardiology on board - Echo completed on 12/18: EF of 25-30% with grade II diastolic dysfunction. - resumed metoprolol tart 25 mg BID due to tachycardia with holding parameters , atorvastatin - Hold losartan 25 mg daily and lasix. - Troponins: 0.017 -->0.289 --> 0.378 at peak and now trending downward. Possible Pneumonia in LLL - Started on zosyn for concerns of aspiration pneumonia with repetitive vomiting on 12/18 and after extubation. - Follow CXR - Encourage incentive spirometry, deep breaths, and ambulation once able. PAF - Currently in NSR, HR in the mid 90s but controlled, Continue metoprolol as above - Patient not on anticoagulation at home - has refused this in the past. DMII - last HbA1c 8.4 (08/05) - Hold glipizide 10 mg bid - ISS with accuchecks ac/hs CKD stage II-III - Appears to be around baseline of 1.1-1.2 - Follow prp CODE STATUS: FULL DVT ppx: teds, scds, ambulatory, no chemical anticoagulation with GI bleed Disposition: In ICU at present, possible transition to tele later today, CM to assist with dc planning
[2017-12-19] MEDS ORDERED: INSULIN GLARGINE SOLOSTAR 100 UNITS/ML 3 ML PEN SC SCH (09:30)
[2017-12-19] MEDS ORDERED: NURSING VERBAL MED ORDER ONE (09:45)
--- NOTE | 2017-12-19 10:37 | Gastroenterology Progress Note ---
Progress Note Date of Service: Dec 19, 2017 Subjective Pt evaluation today including: conversation w/ patient, physical exam, chart review, lab review, review of inpatient medication list Pt extubated yesterday, no signs of active GI bleeding - no hematemesis, melena. Hgb 9-10. Denies any abd pain, n/v, just feels gassy. Review of Systems Constitutional: No fever, No chills Respiratory: No cough, No shortness of breath Abdomen: No pain, No nausea, No vomiting Medications Current Inpatient Medications Medications (Trade) Dose Ordered Sig/[place] Route Start Time Stop Time Status Last Admin Dose Admin Acetaminophen (Tylenol Tab) 650 mg Q4H PRN PO 12/17/17 02:45 01/16/18 02:44 Al Hydrox/Mg Hydrox/Simethicone (Maalox Max Susp) 15 ml Q4H PRN PO 12/17/17 02:45 01/16/18 02:44 Magnesium Hydroxide (Milk Of Magnesia Susp) 30 ml Q12H PRN PO 12/17/17 02:45 01/16/18 02:44 Ondansetron HCl (Zofran Inj) 4 mg Q6H PRN IV 12/17/17 02:45 01/16/18 02:44 12/17/17 11:05 4 MG Polyethylene (Miralax Powder Packet) 17 gm DAILY PRN PO 12/17/17 02:45 01/16/18 02:44 Losartan Potassium (coZAAR TAB) 25 mg DAILY PO 12/17/17 09:00 01/16/18 08:59 Future Hold 12/17/17 08:07 25 MG Magnesium Chloride (Slow-Mag Tab) 128 mg DAILY PO 12/17/17 09:00 01/16/18 08:59 12/19/17 08:38 128 MG Metoprolol Tartrate (Lopressor Tab) 25 mg BID PO 12/17/17 09:00 01/16/18 08:59 Future hold 12/19/17 08:38 25 MG Nitroglycerin (Nitrostat Tab) 0.4 mg PRN UT 12/17/17 02:45 01/16/18 02:44 Glucagon (Glucagon Inj) 1 mg UD PRN SQ 12/17/17 19:15 01/16/18 19:14 Glucose (Glucose 40% Gel) 15-30 GRAMS 15 GRAMS... UD PRN PO 12/17/17 19:15 01/16/18 19:14 12/18/17 18:19 15 GM Glucose (Glucose Chew Tab) 4-8 Tablets 4 Tabl... UD PRN PO 12/17/17 19:15 01/16/18 19:14 Miscellaneous (Iv Fluids Completed) 1 ea PRN PRN N/A 12/17/17 03:00 12/17/18 02:59 Calcium Carbonate (Tums Chew Tab) 500 mg Q8H PRN PO 12/17/17 03:45 01/16/18 03:44 Sodium Chloride 1,000 ml @ 75 mls/hr [id number] IV 12/17/17 12:30 01/16/18 12:29 12/19/17 06:33 100 MLS/HR Pantoprazole Sodium 40 mg/ Dextrose 100 ml @ 20 mls/hr Q5H IV 12/17/17 13:00 01/16/18 12:59 12/19/17 07:26 20 MLS/HR Miscellaneous Information (Icu Protocol For Hyperglycemia) 1 PRN PRN N/A 12/17/17 15:45 12/19/17 15:44 Fentanyl Citrate (Fentanyl Inj) 25 mcg Q2H PRN IV 12/18/17 08:30 01/01/18 08:29 Insulin Aspart (novoLOG ASPART) Q4H SC 12/18/17 18:01 01/17/18 18:00 Metoprolol Tartrate (Lopressor Iv) 5 mg Q5M PRN IV 12/18/17 19:15 01/17/18 19:14 12/18/17 20:29 5 MG Miscellaneous Information (Consult) 1 UD PRN N/A 12/18/17 20:30 12/28/17 20:29 Piperacillin Sod/ Tazobactam Sod 4.5 gm/Dextrose 120 ml @ 30 mls/hr Q8H IV 12/19/17 04:00 12/25/17 21:59 12/19/17 04:40 30 MLS/HR Insulin Glargine (Lantus Solostar Pen) 5 units BID SC 12/19/17 09:30 01/18/18 09:29 Objective Vital Signs Date Time Temp Pulse Resp B/P (MAP) Pulse Ox O2 Delivery O2 Flow Rate FiO2 12/19/17 08:00 36.9 97 22 111/58 (75) 96 Room Air 12/19/17 08:00 Room Air 12/19/17 06:00 100 23 107/64 (78) 92 Nasal Cannula 2.0 12/19/17 04:00 Nasal Cannula 2.0 12/19/17 04:00 36.7 104 18 111/59 (76) 99 Nasal Cannula 2.0 12/19/17 02:00 105 17 109/65 (80) 100 Nasal Cannula 2.0 12/19/17 00:01 37.0 101 14 103/61 (75) 98 Nasal Cannula 2.0 12/18/17 23:59 Nasal Cannula 2.0 12/18/17 22:00 104 24 115/69 (84) 100 12/18/17 21:01 104 25 105/60 (75) 98 Nasal Cannula 2.0 12/18/17 20:30 37.3 113 25 114/62 (79) 98 12/18/17 20:29 113 116/62 12/18/17 20:22 114 24 116/62 (80) 98 12/18/17 20:00 Nasal Cannula 3.0 12/18/17 19:00 108 29 111/59 (76) 100 12/18/17 18:00 103 20 108/55 (72) 99 12/18/17 17:00 99 23 111/57 (75) 97 12/18/17 16:30 96 20 110/56 (74) 100 12/18/17 16:08 120 121/63 12/18/17 16:00 37.0 113 25 121/63 (82) 99 12/18/17 16:00 Nasal Cannula 3.0 12/18/17 15:30 115 26 124/63 (83) 95 12/18/17 15:01 37.3 111 22 127/68 (87) 97 Nasal Cannula 3.0 12/18/17 14:15 100 19 99 12/18/17 14:01 90 18 121/61 (81) 12/18/17 14:00 92 18 100 12/18/17 13:45 86 18 100 12/18/17 13:30 84 22 100 12/18/17 13:15 78 23 100 12/18/17 13:00 80 21 130/63 (85) 100 12/18/17 12:45 81 25 100 12/18/17 12:30 77 22 126/60 (82) 100 12/18/17 12:15 100 Mask 50 12/18/17 12:15 78 26 100 12/18/17 12:00 76 23 118/60 (79) 100 12/18/17 11:45 75 20 100 12/18/17 11:30 36.7 74 24 116/58 (77) 99 Mask 50 12/18/17 11:15 77 19 95 12/18/17 11:00 74 24 117/53 (74) 95 12/18/17 10:50 77 28 110/56 (74) 94 12/18/17 10:45 81 19 97 Physical Exam General Appearance: WD/WN, no apparent distress Eyes: normal inspection, PERRL, EOMI Neck: supple, no JVD, trachea midline Respiratory/Chest: normal breath sounds, no respiratory distress, no accessory muscle use Cardiovascular: regular rate, rhythm, no gallop, no murmur Abdomen: normal bowel sounds, non tender, soft Extremities: normal inspection, no pedal edema, no calf tenderness Neurologic/Psych: alert, normal mood/affect, oriented x 3 Skin: normal color, no jaundice, no rash Laboratory Results Last 24 Hours Test 12/18/17 11:33 12/18/17 11:44 12/18/17 12:44 12/18/17 13:49 Bedside Glucose 95 mg/dl 94 mg/dl 70 mg/dl Hemoglobin 9.8 g/dL Hematocrit 28.7 % Test 12/18/17 14:17 12/18/17 15:11 12/18/17 16:12 12/18/17 16:17 Bedside Glucose 100 mg/dl 87 mg/dl 100 mg/dl White Blood Count 13.03 K/uL Red Blood Count 3.47 M/uL Hemoglobin 10.1 g/dL Hematocrit 30.2 % Mean Corpuscular Volume 87.0 fL Mean Corpuscular Hemoglobin 29.1 pg Mean Corpuscular Hemoglobin Concent 33.4 g/dl Platelet Count 111 K/uL Mean Platelet Volume 12.0 fL Neutrophils (%) (Auto) 84.3 % Lymphocytes (%) (Auto) 6.4 % Monocytes (%) (Auto) 8.7 % Eosinophils (%) (Auto) 0.2 % Basophils (%) (Auto) 0.1 % Neutrophils # (Auto) 10.98 K/uL Lymphocytes # (Auto) 0.84 K/uL Monocytes # (Auto) 1.14 K/uL Eosinophils # (Auto) 0.02 K/uL Basophils # (Auto) 0.01 K/uL RDW Standard Deviation 44.4 fL RDW Coefficient of Variation 13.9 % Immature Granulocyte % (Auto) 0.3 % Immature Granulocyte # (Auto) 0.04 K/uL Estimated Average Glucose 154 mg/dl Hemoglobin A1c 7.0 % Troponin I 0.153 ng/ml Test 12/18/17 18:14 12/18/17 18:30 12/18/17 18:33 12/18/17 19:11 Bedside Glucose 65 mg/dl 75 mg/dl 70 mg/dl Urine Color YELLOW Urine Appearance CLEAR Urine pH 5.0 Urine Specific [place] 1.025 Urine Protein NEG Urine Glucose (UA) NEG Urine Ketones TRACE Urine Occult Blood 2+ Urine Nitrite NEG Urine Bilirubin NEG Urine Urobilinogen NEG Urine Leukocyte Esterase SMALL Urine WBC (Auto) 1-5 /hpf Urine RBC (Auto) 10-30 /hpf Urine Hyaline Casts (Auto) 1-5 /lpf Urine Epithelial Cells (Auto) 5-10 /lpf Urine Bacteria (Auto) NEG Test 12/18/17 20:04 12/18/17 21:03 12/18/17 21:57 12/19/17 01:50 Bedside Glucose 88 mg/dl 73 mg/dl 75 mg/dl 84 mg/dl Test 12/19/17 04:07 12/19/17 07:23 White Blood Count 9.86 K/uL 8.13 K/uL Red Blood Count 2.99 M/uL 3.04 M/uL Hemoglobin 9.0 g/dL 9.1 g/dL Hematocrit 26.3 % 26.9 % Mean Corpuscular Volume 88.0 fL 88.5 fL Mean Corpuscular Hemoglobin 30.1 pg 29.9 pg Mean Corpuscular Hemoglobin Concent 34.2 g/dl 33.8 g/dl RDW Standard Deviation 45.0 fL 46.2 fL RDW Coefficient of Variation 13.9 % 14.2 % Platelet Count 94 K/uL 94 K/uL Mean Platelet Volume 11.6 fL 11.9 fL Sodium Level 140 mmol/L Potassium Level 3.8 mmol/L Chloride Level 111 mmol/L Carbon Dioxide Level 25 mmol/L Anion Gap 4.0 mmol/L Blood Urea Nitrogen 39 mg/dl Creatinine 1.17 mg/dl Est Creatinine Clear Calc Drug Dose 64.1 ml/min Estimated GFR () 74.9 Estimated GFR (Non- 64.6 BUN/Creatinine Ratio 33.8 Random Glucose 116 mg/dl Calcium Level 7.3 mg/dl Phosphorus Level 2.9 mg/dl Magnesium Level 2.0 mg/dl Total Bilirubin 0.7 mg/dl Direct Bilirubin 0.2 mg/dl Aspartate Amino Transf (AST/SGOT) 116 U/L Alanine Aminotransferase (ALT/SGPT) 23 U/L Alkaline Phosphatase 46 U/L Total Protein 4.8 gm/dl Albumin 2.2 gm/dl Assessment and Plan Patient is a 67 year old male seen for hematemesis after Heparin gtt started yesterday. He had EGD eval overnight which showed multiple large deep esophageal ulcer, one of deep cratered. No active bleeding. ? pill esophagitis vs underlaying malignancy. He had received 2U PRBC. Hgb stable between 9-10. No signs of active GI bleeding. - Monitor H/H and transfuse prn - Change PPI gtt to Protonix 40mg PO BID. - Add Carafate 1g QID suspension. Upon DC please continue this med - need to be in suspension form. - [place] diet. - Continue Zofran PRN nausea, as he may trigger another bleeding episode of he starts having vomiting. - Plan for repeat EGD in 2 week's time to re-eval ulcer and to obtain biopsies Late entry: Patient was seen and examined on 12/19 with NICOLE Best whose note reflects our findings and plan.
--- NOTE | 2017-12-19 10:41 | Cardiology Follow-Up ---
Subjective General Date of Service: Dec 19, 2017. Chief Complaint: CHF; GI bleed Pt evaluation today including: conversation w/ patient, physical exam, chart review, lab review, review of studies, review of inpatient medication list History of Present Illness Patient feeling better this AM. No recurrent rigors/chills. No fevers. No chest pain or SOB. Generalized weakness noted. BP stable. Allergies Coded Allergies: Amoxicillin (Verified Allergy, Severe, hives swelling redness lip swelling , 12/16/17) Clavulanic Acid (Verified Allergy, Severe, hypotensive shock, 12/16/17) Iodinated Diagnostic Agents (Verified Allergy, Intermediate, HIVES, ) Prednisone (Verified Allergy, Intermediate, SHORTNESS OF BREATH, 12/16/17) as per patient Social History Smoking Status: Unknown if Ever Smoked Hx Tobacco Use In Past Year?: No Hx Alcohol Use - Type And Amou: No Hx Substance Use - Type And Am: No Problem List Medical Problems: (1) Abscess of right foot including toes Status: Acute (2) Acute chest pain Status: Acute (3) DANIEL (acute kidney injury) Status: Acute (4) Cellulitis Status: Acute (5) CHF exacerbation Status: Acute (6) Dehydration Status: Acute (7) Diabetic foot infection Status: Acute (8) Elevated troponin Status: Acute (9) Leukocytosis Status: Acute (10) Lymphangitis, acute, lower leg Status: Acute (11) Sepsis Status: Acute Review of Systems Respiratory: No cough, No shortness of breath, No dyspnea at rest, No hemoptysis Cardiac: No chest pain, No orthopnea, No PND, No edema, No palpitations Physical Exam Vital Signs Last Vital Signs Documentation Date Time Temp Pulse Resp B/P (MAP) Pulse Ox O2 Delivery O2 Flow Rate FiO2 12/19/17 08:00 36.9 97 22 111/58 (75) 96 Room Air 12/19/17 06:00 2.0 12/18/17 12:15 50 Physical Exam Constitutional: Level of Distress: NAD, chronically ill Psychiatric: Mental Status: active & alert Orientation: to time, to place, to person Head: normocephalic Eyes: Pupils: PERRLA Neck: supple Lungs: Auscultation: no wheezing, no rales/crackles Cardiovascular: Heart Auscultation: RRR, normal S1, normal S2, no murmurs Abdomen: Bowel Sounds: normal Inspection & Palpation: soft, non-distended Extremities: no edema Assessment and Plan Assessment and Plan ASSESSMENT: 67 year old male 1. Admitted for Acute on chronic decompensated systolic HF, symptoms improved with IV furosemide. 2. Mildly elevated troponin, at 0.2, consistent with CHF exacerbation and underlying cardiomyopathy. Not indicative of ACS 3. Significant Hemoptysis resulting in significant drop in hemoglobin, hypotension, transferred to ICU. 2 units PRBC's transfused. 4. EGD revealed Multiple large Non-bleeding esophageal ulcers. One of the ulcers is deep and cratered. Not actively bleeding per GI notes. 5. History of Coronary artery disease, ischemic cardiomyopathy LVEF 30-35% per echo in 07/2017. 6. Hypertension, now hypotensive. 7. Paroxysmal afib - Currently NSR. Patient declines anticoagulation therapy 8. Longstanding noncompliance with medication and recommendations. 9. Rigors/tachycardia, chest xray demonstrating possible infiltrate, starting on antibiotics for underlying pneumonia PLAN: Rigors improved. Tachycardia improving with resumption of home dose metoprolol tartrate 25 mg BID. Continue Protonix and treatment for esophageal ulcerations per GI recommendations. Losartan and furosemide remain on hold. Resume once BP improves Monitor Hbg. Maintain hbg around 10 due to ischemic cardiomyopathy. Echo findings stable, consistent with ischemic cardiomyopathy. Case discussed with Dr. Pulido. Will follow. CARDIOLOGY ATTENDING ADDENDUM: The patient was seen and personally examined. Agree with Kim Rodriguez PA-C's findings and plans as documented above. The patient has markedly improved. He is now telemetry status. Agree with the current plan. Laboratory Results Last 24 Hours Test 12/18/17 11:33 12/18/17 11:44 12/18/17 12:44 12/18/17 13:49 Bedside Glucose 95 mg/dl 94 mg/dl 70 mg/dl Hemoglobin 9.8 g/dL Hematocrit 28.7 % Test 12/18/17 14:17 12/18/17 15:11 12/18/17 16:12 12/18/17 16:17 Bedside Glucose 100 mg/dl 87 mg/dl 100 mg/dl White Blood Count 13.03 K/uL Red Blood Count 3.47 M/uL Hemoglobin 10.1 g/dL Hematocrit 30.2 % Mean Corpuscular Volume 87.0 fL Mean Corpuscular Hemoglobin 29.1 pg Mean Corpuscular Hemoglobin Concent 33.4 g/dl Platelet Count 111 K/uL Mean Platelet Volume 12.0 fL Neutrophils (%) (Auto) 84.3 % Lymphocytes (%) (Auto) 6.4 % Monocytes (%) (Auto) 8.7 % Eosinophils (%) (Auto) 0.2 % Basophils (%) (Auto) 0.1 % Neutrophils # (Auto) 10.98 K/uL Lymphocytes # (Auto) 0.84 K/uL Monocytes # (Auto) 1.14 K/uL Eosinophils # (Auto) 0.02 K/uL Basophils # (Auto) 0.01 K/uL RDW Standard Deviation 44.4 fL RDW Coefficient of Variation 13.9 % Immature Granulocyte % (Auto) 0.3 % Immature Granulocyte # (Auto) 0.04 K/uL Estimated Average Glucose 154 mg/dl Hemoglobin A1c 7.0 % Troponin I 0.153 ng/ml Test 12/18/17 18:14 12/18/17 18:30 12/18/17 18:33 12/18/17 19:11 Bedside Glucose 65 mg/dl 75 mg/dl 70 mg/dl Urine Color YELLOW Urine Appearance CLEAR Urine pH 5.0 Urine Specific [place] 1.025 Urine Protein NEG Urine Glucose (UA) NEG Urine Ketones TRACE Urine Occult Blood 2+ Urine Nitrite NEG Urine Bilirubin NEG Urine Urobilinogen NEG Urine Leukocyte Esterase SMALL Urine WBC (Auto) 1-5 /hpf Urine RBC (Auto) 10-30 /hpf Urine Hyaline Casts (Auto) 1-5 /lpf Urine Epithelial Cells (Auto) 5-10 /lpf Urine Bacteria (Auto) NEG Test 12/18/17 20:04 12/18/17 21:03 12/18/17 21:57 12/19/17 01:50 Bedside Glucose 88 mg/dl 73 mg/dl 75 mg/dl 84 mg/dl Test 12/19/17 04:07 12/19/17 07:23 White Blood Count 9.86 K/uL 8.13 K/uL Red Blood Count 2.99 M/uL 3.04 M/uL Hemoglobin 9.0 g/dL 9.1 g/dL Hematocrit 26.3 % 26.9 % Mean Corpuscular Volume 88.0 fL 88.5 fL Mean Corpuscular Hemoglobin 30.1 pg 29.9 pg Mean Corpuscular Hemoglobin Concent 34.2 g/dl 33.8 g/dl RDW Standard Deviation 45.0 fL 46.2 fL RDW Coefficient of Variation 13.9 % 14.2 % Platelet Count 94 K/uL 94 K/uL Mean Platelet Volume 11.6 fL 11.9 fL Sodium Level 140 mmol/L Potassium Level 3.8 mmol/L Chloride Level 111 mmol/L Carbon Dioxide Level 25 mmol/L Anion Gap 4.0 mmol/L Blood Urea Nitrogen 39 mg/dl Creatinine 1.17 mg/dl Est Creatinine Clear Calc Drug Dose 64.1 ml/min Estimated GFR () 74.9 Estimated GFR (Non- 64.6 BUN/Creatinine Ratio 33.8 Random Glucose 116 mg/dl Calcium Level 7.3 mg/dl Phosphorus Level 2.9 mg/dl Magnesium Level 2.0 mg/dl Total Bilirubin 0.7 mg/dl Direct Bilirubin 0.2 mg/dl Aspartate Amino Transf (AST/SGOT) 116 U/L Alanine Aminotransferase (ALT/SGPT) 23 U/L Alkaline Phosphatase 46 U/L Total Protein 4.8 gm/dl Albumin 2.2 gm/dl
[2017-12-19] MEDS: SUCRALFATE 1 GM/10 ML UDC PO SCH ×3 (12:17→20:28)
--- NOTE | 2017-12-19 16:03 | Pharmacy Progress Note ---
Glycemic Control Intl Consult Date of Service Dec 19, 2017. Scope Glycemic Pharmacist consulted by Dr March on 12/19/17 for glycemic control and to write orders per [facility] inpatient glycemic control protocol Objective Weight (Kilograms): 85.600 Accuchecks BSG (last 24hrs): Test 12/18/17 16:12 12/18/17 18:14 12/18/17 18:33 12/18/17 19:11 Bedside Glucose 100 mg/dl (70-99) 65 mg/dl (70-99) 75 mg/dl (70-99) 70 mg/dl (70-99) Test 12/18/17 20:04 12/18/17 21:03 12/18/17 21:57 12/19/17 01:50 Bedside Glucose 88 mg/dl (70-99) 73 mg/dl (70-99) 75 mg/dl (70-99) 84 mg/dl (70-99) Test 12/19/17 04:07 Random Glucose 116 mg/dl (70-99) Laboratory Data (last 24hrs) Test 12/18/17 16:17 12/19/17 04:07 12/19/17 07:23 Hemoglobin A1c 7.0 % White Blood Count 13.03 K/uL 9.86 K/uL 8.13 K/uL Red Blood Count 3.47 M/uL Hemoglobin 10.1 g/dL Hematocrit 30.2 % Mean Corpuscular Volume 87.0 fL Mean Corpuscular Hemoglobin 29.1 pg Mean Corpuscular Hemoglobin Concent 33.4 g/dl Platelet Count 111 K/uL Mean Platelet Volume 12.0 fL Neutrophils (%) (Auto) 84.3 % Lymphocytes (%) (Auto) 6.4 % Monocytes (%) (Auto) 8.7 % Eosinophils (%) (Auto) 0.2 % Basophils (%) (Auto) 0.1 % Neutrophils # (Auto) 10.98 K/uL Lymphocytes # (Auto) 0.84 K/uL Monocytes # (Auto) 1.14 K/uL Eosinophils # (Auto) 0.02 K/uL Basophils # (Auto) 0.01 K/uL Anion Gap 4.0 mmol/L BUN/Creatinine Ratio 33.8 Blood Urea Nitrogen 39 mg/dl Creatinine 1.17 mg/dl Potassium Level 3.8 mmol/L Sodium Level 140 mmol/L HbA1c Test 12/18/17 16:17 Hemoglobin A1c 7.0 % (4.5-5.6) H Recent Pertinent Medications Outpatient Anti-diabetic Regimen: * Glipizide ER 10 mg PO BIDM The patient is currently receiving: * Basal insulin: Lantus 5 units every 12 hours * Correctional Insulin: Novolog Correction per scale ACHS Goal Range: Low 120 mg/dL - High 160 mg/dL Correction Factor: 30 mg/dL/unit * Prandial insulin: Per carb ratio of 1 unit per 8 grams CHO consumed Risk Factors for Insulin Resistance: * Infection * Diet Assessment & Plan ASSESSMENT: * 67 yo diabetic M admitted to ICU 12/17/17 with CHF exacerbation * Pt with good glycemic control as outpatient as evidenced by A1c of 7.0% * Due to stress/clinical status and protonix drip, pt required short term insulin drip to manage BSGs * Yesterday pt was transitioned off insulin drip successfully with Lantus 20 units X 1 * Pt did require one bolus of D50 in the evening when BSG was noted to be 65 mg/ dL * Diet advanced from clears to full liquids today * Fasting BSG 130 mg/dL this AM * Lantus reduced to 5 units this AM and given late * Lunch BSG trended back up above goal range to 199 mg/dL * Plan will be to continue wt based basal/bolus regimen through the evening and monitor closely as diet advanced PLAN FOR INPATIENT GLYCEMIC CONTROL: * Hold glipizide * Basal insulin with LANTUS 0-15 units SQ BID depending on BSG trend * Correctional Insulin with NOVOLOG per scale ACHS or Q6hrs while NPO * Goal Range: Low 120 mg/dL - High 160 mg/dL * Correction Factor: 20 mg/dL/unit * Nutritional / Prandial insulin per carb ratio of 1 unit per 8 grams CHO consumed * Please note that the plan above was derived based on current level of insulin resistance and hospital stress. These recommendations are appropriate for inpatient admission only. Plan of care upon discharge will need to be reassessed to avoid potential outpatient hypo/hyperglycemia. Thank you.
[2017-12-19] MEDS: PANTOprazole SOD 40 MG TAB PO SCH (20:27)
[2017-12-20] VITALS (12 sets, daily range): BP systolic 117–138; BP diastolic 70–79; PULSE 88–106; TEMP 36.5–37.9; O2SAT 93–99
[2017-12-20] MEDS: PIPERACILL/TAZOBAC IV 4.5 GM in DEXTROSE 5% 100ML 100 ML IV SCH ×3 (04:42→20:29)
[2017-12-20 07:11] LABS: CALCIUM 7.8 mg/dl (8.5-10.1); CREATININE 1.13 mg/dl (0.60-1.40); POTASSIUM 3.6 mmol/L (3.5-5.1)
[2017-12-20 07:13] LABS: PHOSPHORUS 2.2 mg/dl (2.5-4.9)
[2017-12-20] MEDS ORDERED: FUROSEMIDE INJ 20 MG in SYRINGE 0 ML IV ONE (07:30)
[2017-12-20] MEDS ORDERED: PHARMACY GLYCEMIC MGMT CONSULT PRN (08:00)
[2017-12-20 08:03] LABS: BASO % 0.4 %; BASO ABS # 0.04 K/uL (0-0.2); EOS % 0.4 %; EOS ABS # 0.04 K/uL (0-0.5); HEMATOCRIT 27.7 % (42-52); HEMOGLOBIN 9.3 g/dL (14.0-18.0); IG# 0.05 K/uL (0.00-0.02); LYMPH % 14.4 %; LYMPH ABS # 1.41 K/uL (1.2-3.4); MEAN CELL VOLUME 88.2 fL (80-100); MEAN CORPUSCULAR HEMOGLOBIN 29.6 pg (25-34); MEAN CORPUSCULAR HGB CONC 33.6 g/dl (32-36); MEAN PLATELET VOLUME 11.7 fL (7.4-10.4); MONO % 15.9 %; MONO ABS # 1.56 K/uL (0.11-0.59); NEUT % 68.4 %; PLATELET COUNT 106 K/uL (130-400); RED CELL DISTRIBUTION WIDTH CV 13.8 % (11.5-14.5); RED CELL DISTRIBUTION WIDTH SD 44.5 fL (36.4-46.3)
[2017-12-20] MEDS: PANTOprazole SOD 40 MG TAB PO SCH ×2 (08:08→20:35)
[2017-12-20] MEDS: METOPROLOL TARTRATE 25 MG TAB PO SCH ×2 (08:08→20:35)
[2017-12-20] MEDS: MAGNESIUM CHLORIDE 64MG DELAYED REL TAB PO SCH (08:08)
[2017-12-20] MEDS: SUCRALFATE 1 GM/10 ML UDC PO SCH ×4 (08:09→20:34)
[2017-12-20] MEDS: INSULIN ASPART 100 UNITS/ML 3 ML PEN SC SCH ×4 (08:15→20:36)
[2017-12-20] MEDS: INSULIN GLARGINE SOLOSTAR 100 UNITS/ML 3 ML PEN SC SCH ×2 (08:16→20:36)
[2017-12-20] MEDS: SODIUM CHLORIDE 0.9% 1000ML 1,000 ML IV SCH ×2 (08:19→20:34)
--- NOTE | 2017-12-20 08:53 | Hospitalist Progress Note ---
Hospitalist Progress Note Date of Service Dec 20, 2017. Subjective Pt evaluation today including: conversation w/ patient, physical exam, chart review, lab review, review of studies Pain: None PO Intake: Tolerating full liquids Voiding: no voiding problems The patient was seen and examined this morning. Pt reports feeling very tired today, slept 2-3 hours overnight. He is slightly stiff and sore today just from sitting in bed over the past few days. He feels his breathing is "tight" today. He has a dry cough, denies any sputum production. He denies any chest pain, palpitation, abd pain, n/v/d. He is having dark tarry bowel movements now , but denies bright red or maroon colored stools. Pt is requesting a sleep aid for overnight. Additional Comments: ROS: Constitutional: No fever, sweats or chills Eyes: No diplopia, no worsening or blurred vision ENT: normal hearing, no trouble swallowing Respiratory: + cough, No sputum, dyspnea at rest or on exertion Cardiovascular: No chest pain, tightness or palpitations Abdomen: no nausea, no vomiting, + passing flatus, + maroon colored stools Musculoskeletal: No joint pain, calf pain, swelling Neurologic: No weakness, numbness/tingling, or balance problems Psychiatric: No anxiety or depression Skin: No rash or itch Objective Vital Signs Date Time Temp Pulse Resp B/P (MAP) Pulse Ox O2 Delivery O2 Flow Rate FiO2 12/20/17 08:04 36.5 106 18 138/79 98 12/20/17 07:55 37.3 96 20 129/77 (94) 96 Room Air 12/20/17 07:50 37.9 99 16 130/73 98 12/20/17 04:00 Room Air 12/20/17 03:57 36.8 95 17 118/70 (86) 97 Room Air 12/19/17 23:59 Room Air 12/19/17 23:40 37.2 92 17 115/67 (83) 99 Room Air 12/19/17 20:00 Room Air 12/19/17 19:39 37.2 90 20 117/71 (86) 98 Room Air 12/19/17 16:00 36.7 90 18 113/63 (80) 99 Room Air 12/19/17 16:00 99 Room Air 1/31/18 12:00 36.8 95 19 113/64 (80) 100 Room Air 12/19/17 12:00 Room Air Physical Exam Notes: General: awake, alert, no apparent distress, fatigued Head: Normocephalic, atraumatic ENT: PERRL, EOMI, no pharyngeal exudate, mucous membranes moist, + dressing over R neck c/d/i from central catheter placement now removed Chest: Clear to auscultation, on room air, no adventitious breath sounds Cardiac: Slightly tachycardic, HR mid 90s, + systolic murmur, no JVD, normal peripheral pulses, good capillary refill Abdominal: tolerating full liquids, NABS x 4 quadrants, soft, nontender to palpation, no rebound, guarding or tenderness Extremities: Normal inspection, no peripheral edema or erythema, calfs nontender to palpation Psych: Normal mood and affect Neuro: AAO x 3, speech is clear, no peripheral sensory deficits Laboratory Results Last 24 Hours Test 12/19/17 11:05 12/19/17 15:56 12/19/17 20:05 12/20/17 05:52 Bedside Glucose 199 mg/dl 196 mg/dl 182 mg/dl White Blood Count 9.80 K/uL Red Blood Count 3.14 M/uL Hemoglobin 9.3 g/dL Hematocrit 27.7 % Mean Corpuscular Volume 88.2 fL Mean Corpuscular Hemoglobin 29.6 pg Mean Corpuscular Hemoglobin Concent 33.6 g/dl Platelet Count 106 K/uL Mean Platelet Volume 11.7 fL Neutrophils (%) (Auto) 68.4 % Lymphocytes (%) (Auto) 14.4 % Monocytes (%) (Auto) 15.9 % Eosinophils (%) (Auto) 0.4 % Basophils (%) (Auto) 0.4 % Neutrophils # (Auto) 6.70 K/uL Lymphocytes # (Auto) 1.41 K/uL Monocytes # (Auto) 1.56 K/uL Eosinophils # (Auto) 0.04 K/uL Basophils # (Auto) 0.04 K/uL RDW Standard Deviation 44.5 fL RDW Coefficient of Variation 13.8 % Immature Granulocyte % (Auto) 0.5 % Immature Granulocyte # (Auto) 0.05 K/uL Sodium Level 137 mmol/L Potassium Level 3.6 mmol/L Chloride Level 107 mmol/L Carbon Dioxide Level 23 mmol/L Anion Gap 8.0 mmol/L Blood Urea Nitrogen 31 mg/dl Creatinine 1.13 mg/dl Est Creatinine Clear Calc Drug Dose 66.4 ml/min Estimated GFR () 78.1 Estimated GFR (Non- 67.4 BUN/Creatinine Ratio 27.5 Random Glucose 104 mg/dl Calcium Level 7.8 mg/dl Phosphorus Level 2.2 mg/dl Magnesium Level 2.2 mg/dl Test 12/20/17 06:42 Bedside Glucose 108 mg/dl Assessment and Plan 67 M with PMHx of PAF, ischemic CM and chronic systolic CHF with EF of 30-35% most recent echocardiogram being 2016, DM II uncontrolled, hyperthyroidism, diabetic retinopathy, HTN, HLD admitted with acute CHF exacerbation. Troponin was noted to be slightly elevated and started on heparin gtt. Subsequently the pt developed gross hematemesis with bright red blood. He was initially hypotensive which was resolved with administration of IV fluids and holding of futher IV lasix. Gastroenterology performed an emergent EGD once pressures stabilized, on 12/18, and found extensive esophageal erosion. He had multiple large nonbleeding esophageal ulcers, one of which was deep and cratered. There was no active bleeding at the time of the EGD. He has recieved 2 U of PRBC on . Pt was intubated for EGD on 12/17, left on intubation overnight in case of needs for repeat procedure, and successfully extubated on 12/18. Acute Gastrointestinal bleed Esophageal Erosion - GI on board - s/p egd, protonix gtt switched to 40 mg po BID, add carafate suspension ( will need at dc) - Monitor H&H, stable - GI allowed full liquid diet today, advance as tolerated - Plan for repeat EGD in 2 week's time to re-eval ulcer and to obtain biopsies Acute Anemia - Secondary to esophageal bleeding - EGD without active bleeding, on protonix - S/p 2 U PRBCs on 12/17, follow serial H&H - ordering another 1 U PRBC today to maintain a Hgb around 10. Will give dose of lasix to prevent fluid overload prior to administration. - PT/OT consulted Acute on chronic systolic and diastolic CHF Ischemic Cardiomyopathy Elevated Troponin - resolved HTN HLD - Diuresed at time of admission with ~ 3 L outs, held then with acute onset of GI bleed and hypotension - now resolved. - Strict I/O with leonardo cath in place, daily weight, NPO until GI recs diet - Off heparin gtt - Cardiology on board - Echo completed on 12/18: EF of 25-30% with grade II diastolic dysfunction. - Increased metoprolol tart to 50 mg Qam and 25 mg QPM due to tachycardia per cardiology - Cont atorvastatin - Hold losartan 25 mg daily and lasix. - Troponins: 0.017 -->0.289 --> 0.378 at peak and trended downward. Possible Pneumonia in LLL - Started on zosyn for concerns of aspiration pneumonia with repetitive vomiting on 12/18 and after extubation - continue - CXR this morning - Encourage incentive spirometry, deep breaths, and ambulation once able. PAF - Currently in NSR, HR in the mid 90s -Continue metoprolol as above - Patient not on anticoagulation at home - has refused this in the past. DMII - last HbA1c 8.4 (08/05) - Hold glipizide 10 mg bid - ISS with accuchecks ac/hs CKD stage II-III - Appears to be around baseline of 1.1-1.2 - Follow prp Insomnia - Will trial ambien 5 mg HS tonight - pt has uses melatonin at home which helps although this is not available in house. CODE STATUS: FULL DVT ppx: teds, scds, ambulatory, no chemical anticoagulation with GI bleed Disposition: In tele, CM to assist with dc planning, from home, possible move out to med/surg tomorrow. ?D/c in 2 days
--- NOTE | 2017-12-20 09:25 | Gastroenterology Progress Note ---
Progress Note Date of Service: Dec 20, 2017 Subjective Pt evaluation today including: conversation w/ patient, physical exam, chart review, lab review, review of inpatient medication list Pt had multiple solid black stools yesterday. Hgb 9.3. He denies any abd pain, n /v. c/o some difficulty taking deep breath, and not sleeping much too. Review of Systems Constitutional: No fever, No chills Respiratory: + see HPI, No cough, No shortness of breath Cardiac: No chest pain Abdomen: No pain, No nausea, No vomiting Medications Current Inpatient Medications Medications (Trade) Dose Ordered Sig/[place] Route Start Time Stop Time Status Last Admin Dose Admin Acetaminophen (Tylenol Tab) 650 mg Q4H PRN PO 12/17/17 02:45 01/16/18 02:44 Al Hydrox/Mg Hydrox/Simethicone (Maalox Max Susp) 15 ml Q4H PRN PO 12/17/17 02:45 01/16/18 02:44 Magnesium Hydroxide (Milk Of Magnesia Susp) 30 ml Q12H PRN PO 12/17/17 02:45 01/16/18 02:44 Ondansetron HCl (Zofran Inj) 4 mg Q6H PRN IV 12/17/17 02:45 01/16/18 02:44 12/17/17 11:05 4 MG Polyethylene (Miralax Powder Packet) 17 gm DAILY PRN PO 12/17/17 02:45 01/16/18 02:44 Losartan Potassium (coZAAR TAB) 25 mg DAILY PO 12/17/17 09:00 01/16/18 08:59 Future Hold 12/17/17 08:07 25 MG Magnesium Chloride (Slow-Mag Tab) 128 mg DAILY PO 12/17/17 09:00 01/16/18 08:59 12/20/17 08:08 128 MG Metoprolol Tartrate (Lopressor Tab) 25 mg BID PO 12/17/17 09:00 01/16/18 08:59 Future hold 12/20/17 08:08 25 MG Nitroglycerin (Nitrostat Tab) 0.4 mg PRN UT 12/17/17 02:45 01/16/18 02:44 Glucagon (Glucagon Inj) 1 mg UD PRN SQ 12/17/17 19:15 01/16/18 19:14 Glucose (Glucose 40% Gel) 15-30 GRAMS 15 GRAMS... UD PRN PO 12/17/17 19:15 01/16/18 19:14 12/18/17 18:19 15 GM Glucose (Glucose Chew Tab) 4-8 Tablets 4 Tabl... UD PRN PO 12/17/17 19:15 01/16/18 19:14 Miscellaneous (Iv Fluids Completed) 1 ea PRN PRN N/A 12/17/17 03:00 12/17/18 02:59 Calcium Carbonate (Tums Chew Tab) 500 mg Q8H PRN PO 12/17/17 03:45 01/16/18 03:44 Sodium Chloride 1,000 ml @ 75 mls/hr [id number] IV 12/17/17 12:30 01/16/18 12:29 12/20/17 08:19 75 MLS/HR Fentanyl Citrate (Fentanyl Inj) 25 mcg Q2H PRN IV 12/18/17 08:30 01/01/18 08:29 Metoprolol Tartrate (Lopressor Iv) 5 mg Q5M PRN IV 12/18/17 19:15 01/17/18 19:14 12/18/17 20:29 5 MG Miscellaneous Information (Consult) 1 ea UD PRN N/A 12/18/17 20:30 12/28/17 20:29 Piperacillin Sod/ Tazobactam Sod 4.5 gm/Dextrose 120 ml @ 30 mls/hr Q8H IV 12/19/17 04:00 12/25/17 21:59 12/20/17 04:42 30 MLS/HR Pantoprazole Sodium (Protonix Tab) 40 mg BID PO 12/19/17 21:00 01/18/18 20:59 12/20/17 08:08 40 MG Sucralfate (Carafate Susp) 1 gm QID PO 12/19/17 13:00 01/18/18 12:59 12/20/17 08:09 1 GM Insulin Aspart (novoLOG ASPART) ACHS SC 12/19/17 12:00 01/18/18 11:59 12/20/17 08:15 7 UNITS Insulin Glargine (Lantus Solostar Pen) SEE PROTOCOL BID SC 12/19/17 18:00 01/18/18 17:59 12/20/17 08:16 8 UNITS Miscellaneous Information (Consult Glycemic Management Pharmacy) 1 ea UD PRN N/A 12/20/17 08:00 01/19/18 07:59 Objective Vital Signs Date Time Temp Pulse Resp B/P (MAP) Pulse Ox O2 Delivery O2 Flow Rate FiO2 12/20/17 08:04 36.5 106 18 138/79 98 12/20/17 07:55 37.3 96 20 129/77 (94) 96 Room Air 12/20/17 07:50 37.9 99 16 130/73 98 12/20/17 04:00 Room Air 12/20/17 03:57 36.8 95 17 118/70 (86) 97 Room Air 12/19/17 23:59 Room Air 12/19/17 23:40 37.2 92 17 115/67 (83) 99 Room Air 12/19/17 20:00 Room Air 12/19/17 19:39 37.2 90 20 117/71 (86) 98 Room Air 12/19/17 16:00 36.7 90 18 113/63 (80) 99 Room Air 12/19/17 16:00 99 Room Air 12/19/17 12:00 36.8 95 19 113/64 (80) 100 Room Air 12/19/17 12:00 Room Air Physical Exam General Appearance: WD/WN, no apparent distress Eyes: normal inspection, PERRL, EOMI Neck: supple, no JVD, trachea midline Respiratory/Chest: normal breath sounds, no respiratory distress, no accessory muscle use Cardiovascular: regular rate, rhythm, no gallop, no murmur Abdomen: normal bowel sounds, non tender, soft Extremities: normal inspection, no pedal edema, no calf tenderness Neurologic/Psych: alert, normal mood/affect, oriented x 3 Skin: normal color, no jaundice, no rash Laboratory Results Last 24 Hours Test 12/19/17 11:05 12/19/17 15:56 12/19/17 20:05 12/20/17 05:52 Bedside Glucose 199 mg/dl 196 mg/dl 182 mg/dl White Blood Count 9.80 K/uL Red Blood Count 3.14 M/uL Hemoglobin 9.3 g/dL Hematocrit 27.7 % Mean Corpuscular Volume 88.2 fL Mean Corpuscular Hemoglobin 29.6 pg Mean Corpuscular Hemoglobin Concent 33.6 g/dl Platelet Count 106 K/uL Mean Platelet Volume 11.7 fL Neutrophils (%) (Auto) 68.4 % Lymphocytes (%) (Auto) 14.4 % Monocytes (%) (Auto) 15.9 % Eosinophils (%) (Auto) 0.4 % Basophils (%) (Auto) 0.4 % Neutrophils # (Auto) 6.70 K/uL Lymphocytes # (Auto) 1.41 K/uL Monocytes # (Auto) 1.56 K/uL Eosinophils # (Auto) 0.04 K/uL Basophils # (Auto) 0.04 K/uL RDW Standard Deviation 44.5 fL RDW Coefficient of Variation 13.8 % Immature Granulocyte % (Auto) 0.5 % Immature Granulocyte # (Auto) 0.05 K/uL Sodium Level 137 mmol/L Potassium Level 3.6 mmol/L Chloride Level 107 mmol/L Carbon Dioxide Level 23 mmol/L Anion Gap 8.0 mmol/L Blood Urea Nitrogen 31 mg/dl Creatinine 1.13 mg/dl Est Creatinine Clear Calc Drug Dose 66.4 ml/min Estimated GFR () 78.1 Estimated GFR (Non- 67.4 BUN/Creatinine Ratio 27.5 Random Glucose 104 mg/dl Calcium Level 7.8 mg/dl Phosphorus Level 2.2 mg/dl Magnesium Level 2.2 mg/dl Test 12/20/17 06:42 Bedside Glucose 108 mg/dl Assessment and Plan Patient is a 67 year old male seen for hematemesis after Heparin gtt started. He had EGD eval 12/17 which showed multiple large deep esophageal ulcer, one of deep cratered. No active bleeding. ? pill esophagitis vs underlaying malignancy. He had received 2U PRBC. Hgb stable between 9-10. Some solid black stools yesterday. Receiving 1U PRBC today (hx of ischemic cardiomyopathy, goal to keep Hgb around 10 per Cardiology) - Monitor H/H and transfuse prn - Protonix 40mg PO BID; Carafate 1g QID suspension. Upon DC please continue this med - need to be in suspension form (not the pills). - Advance diet as tolerated. - Continue Zofran PRN nausea, as he may trigger another bleeding episode of he starts having vomiting. - Plan for repeat EGD in 8 week's time to re-eval ulcer and to obtain biopsies - Will watch peripherally, call if new questions/concerns arise. I have seen and examined the patietn with NICOLE Best whose note reflects our findings and plan.
[2017-12-20] MEDS ORDERED: METOPROLOL TARTRATE 50 MG TAB PO ONE (10:09)
[2017-12-20] MEDS ORDERED: COUGH DROP (SUGAR FREE) LOZ 24 LOZ/1 BOX LOZ PRN (10:15)
[2017-12-20] MEDS ORDERED: ZOLPIDEM TARTRATE 5 MG TAB PO PRN (10:15)
[2017-12-20] MEDS: LEVALBUTEROL 1.25MG/3ML NEB INH SCH ×2 (11:17→21:00)
--- NOTE | 2017-12-20 11:39 | Cardiology Follow-Up ---
Subjective General Date of Service: Dec 20, 2017. Chief Complaint: CHF; GI bleed History of Present Illness Patient feeling ok this AM. Had repeat transfusionof PRBC's this AM. Notes mild SOB this AM. No chest pain. No recurrent hemoptysis. Noted melena last night. No orthopnea, PND or edema. Allergies Coded Allergies: Amoxicillin (Verified Allergy, Severe, hives swelling redness lip swelling , 12/16/17) Clavulanic Acid (Verified Allergy, Severe, hypotensive shock, 12/16/17) Iodinated Diagnostic Agents (Verified Allergy, Intermediate, HIVES, ) Prednisone (Verified Allergy, Intermediate, SHORTNESS OF BREATH, 12/16/17) as per patient Social History Smoking Status: Unknown if Ever Smoked Hx Tobacco Use In Past Year?: No Hx Alcohol Use - Type And Amou: No Hx Substance Use - Type And Am: No Problem List Medical Problems: (1) Abscess of right foot including toes Status: Acute (2) Acute chest pain Status: Acute (3) DANIEL (acute kidney injury) Status: Acute (4) Cellulitis Status: Acute (5) CHF exacerbation Status: Acute (6) Dehydration Status: Acute (7) Diabetic foot infection Status: Acute (8) Elevated troponin Status: Acute (9) Leukocytosis Status: Acute (10) Lymphangitis, acute, lower leg Status: Acute (11) Sepsis Status: Acute Review of Systems Respiratory: + shortness of breath, No cough, No sputum, No wheezing, No hemoptysis Cardiac: No chest pain, No orthopnea, No PND, No edema, No palpitations Physical Exam Vital Signs Last Vital Signs Documentation Date Time Temp Pulse Resp B/P (MAP) Pulse Ox O2 Delivery O2 Flow Rate FiO2 12/20/17 11:17 92 18 99 Room Air 12/20/17 09:35 37.0 120/76 12/19/17 06:00 2.0 12/18/17 12:15 50 Physical Exam Constitutional: General Apperance: well-nourished Level of Distress: NAD Psychiatric: Mental Status: active & alert Orientation: to time, to place, to person Head: normocephalic Eyes: Pupils: PERRLA Neck: supple Lungs: Auscultation: no wheezing, deminished air movement, wet rales/crackles Cardiovascular: Heart Auscultation: RRR, normal S1, normal S2, no murmurs Abdomen: Bowel Sounds: normal Inspection & Palpation: soft, non-distended Extremities: no edema Assessment and Plan Assessment and Plan ASSESSMENT: 67 year old male 1. Admitted for Acute on chronic decompensated systolic HF, symptoms improved initially with IV furosemide. 2. Mildly elevated troponin, at 0.2, consistent with CHF exacerbation and underlying cardiomyopathy. Not indicative of ACS 3. Significant Hemoptysis resulting in significant drop in hemoglobin, hypotension, transferred to ICU. 2 units PRBC's transfused. 4. EGD revealed Multiple large Non-bleeding esophageal ulcers. One of the ulcers is deep and cratered. Not actively bleeding per GI notes. 5. History of Coronary artery disease, ischemic cardiomyopathy LVEF 30-35% per echo in 07/2017. 6. Hypertension, now hypotensive. 7. Paroxysmal afib - Currently NSR. Patient declines anticoagulation therapy 8. Longstanding noncompliance with medication and recommendations. 9. Rigors/tachycardia, chest xray demonstrating possible infiltrate, starting on antibiotics for underlying pneumonia PLAN: Rigors improved. Tachycardia improving with resumption of home dose metoprolol tartrate 25 mg BID , however HR's still ranging 90-110 at rest. Increase metoprolol to 50 mg in AM and 25 mg in PM. Continue Protonix and treatment for esophageal ulcerations per GI recommendations. Losartan and furosemide remain on hold IV furosemide 20 mg to be given this AM after transfusion complete. Monitor SOB. Resume losartan once BP is stable. Resume oral dose furosemide prior to discharge. Monitor Hbg. Maintain hbg around 10 due to ischemic cardiomyopathy. Echo findings stable, consistent with ischemic cardiomyopathy. Case discussed with Dr. Pulido. Will follow. CARDIOLOGY ATTENDING ADDENDUM: The patient was seen and personally examined. Agree with Kim Rodriguez PA-C's findings and plans as documented above. Patient in good spirits today. His was in the room today. Things seem to be having in the right direction. Laboratory Results Last 24 Hours Test 12/19/17 15:56 12/19/17 20:05 12/20/17 05:52 12/20/17 06:42 Bedside Glucose 196 mg/dl 182 mg/dl 108 mg/dl White Blood Count 9.80 K/uL Red Blood Count 3.14 M/uL Hemoglobin 9.3 g/dL Hematocrit 27.7 % Mean Corpuscular Volume 88.2 fL Mean Corpuscular Hemoglobin 29.6 pg Mean Corpuscular Hemoglobin Concent 33.6 g/dl Platelet Count 106 K/uL Mean Platelet Volume 11.7 fL Neutrophils (%) (Auto) 68.4 % Lymphocytes (%) (Auto) 14.4 % Monocytes (%) (Auto) 15.9 % Eosinophils (%) (Auto) 0.4 % Basophils (%) (Auto) 0.4 % Neutrophils # (Auto) 6.70 K/uL Lymphocytes # (Auto) 1.41 K/uL Monocytes # (Auto) 1.56 K/uL Eosinophils # (Auto) 0.04 K/uL Basophils # (Auto) 0.04 K/uL RDW Standard Deviation 44.5 fL RDW Coefficient of Variation 13.8 % Immature Granulocyte % (Auto) 0.5 % Immature Granulocyte # (Auto) 0.05 K/uL Sodium Level 137 mmol/L Potassium Level 3.6 mmol/L Chloride Level 107 mmol/L Carbon Dioxide Level 23 mmol/L Anion Gap 8.0 mmol/L Blood Urea Nitrogen 31 mg/dl Creatinine 1.13 mg/dl Est Creatinine Clear Calc Drug Dose 66.4 ml/min Estimated GFR () 78.1 Estimated GFR (Non- 67.4 BUN/Creatinine Ratio 27.5 Random Glucose 104 mg/dl Calcium Level 7.8 mg/dl Phosphorus Level 2.2 mg/dl Magnesium Level 2.2 mg/dl
--- NOTE | 2017-12-20 12:34 | DIAGNOSTIC IMAGING REPORT ---
CHEST 2 VIEWS ROUTINE CLINICAL HISTORY: Pneumonia COMPARISON STUDY: 12/18/2017 FINDINGS: The heart is mildly enlarged. There are postsurgical changes of a midline sternotomy. There are small bilateral pleural effusions. There are patchy airspace opacities within the left lower lobe.[ IMPRESSION: 1. Persistent patchy airspace opacities at the left lung base (pneumonia versus atelectasis). 2. Small bilateral pleural effusions Electronically signed by: Valentin Werner M.D. 12/20/2017 12:33 PM Dictated Date/Time: 12/20/2017 12:31 PM
--- NOTE | 2017-12-20 21:02 | Progress Note ---
Post ICU Progress Note Date & Time Dec 20, 2017 at 20:19 Vital Signs Vital Signs Past 12 Hours Date Time Temp Pulse Resp B/P (MAP) Pulse Ox O2 Delivery O2 Flow Rate FiO2 12/20/17 19:28 37.1 88 20 126/75 (92) 98 Room Air 12/20/17 16:00 Room Air 12/20/17 15:48 36.6 92 20 123/73 (90) 93 Room Air 12/20/17 12:12 36.6 91 20 121/74 (90) 97 Room Air 12/20/17 12:00 Room Air 12/20/17 11:17 92 18 99 Room Air 12/20/17 09:35 37.0 96 16 120/76 97 12/20/17 08:35 37.2 99 18 117/72 98 Notes Mental Status: alert / awake, participated in evaluation Nausea / Vomiting: adequately controlled Pain: adequately controlled Airway Patency, RR, SpO2: stable & adequate BP & HR: stable & adequate (Hr 90-106 today, BB increasesd by Cardiology. Pt still anemic. ) Enmanuel Cook is a 67 year old local [place] who presented to the Emergency Room for dyspnea and persistent coughing on 12/16. Pt was admitted for cardiac evaluation for elevated troponin, fluid overload in CHF on PRN home lasix with recent 7 pound weight gain. and last EF on ECHO was 30-35%. Pt was started on heparin infusion until over the course of the hospital stay he began with hematemesis. GI placed him on Protonix infusion. EGD scope demonstrated a few cratered esophageal ulcers without bleeding; however, older blood was found in the stomach. Pt was admitted to the ICU intubated overnight. He received 3u of PRBCs to date. Troponin has trended down. Pt has remained hemodynamically stable with HR in the mid 90's. Cardiology has recommended Hgb be kept around 10 due to ischemic cardiomyopathy. CXR demonstrates opacity versus atelectasis. Pt remains on room air with adequate saturations and afebrile. Lungs are clear without adventitious sounds. Procalcitonin this admission was negative. No additional findings on physical exam. Pts only compliant is insomnia. He is leery of taking the prescribed Ambien this evening as he is still coughing secondary to the mucous and increased secretions after his EGD. Otherwise pt is without complaint. He is ready to go home as soon as discharge is approved. Per him, Dr. Carrillo suggested possible discharge by Sunday. Pt was extubated the following AM after his EGD and he underwent central venous access in the ICU. This has since been removed and a clean dry intact dressing was intact. Consider outpatient follow up in 1 to 2 weeks with: GI (Dr. Garcia), Cardiology (Dr. Landa), and PCP (Dr. Chin) Repeat imaging needed: If physical exam or presentation changes, recommend repeat CXR Follow up cultures: N/A Reviewed progress notes, labs, and inpatient medication list Continue current management: GI Recommendation: Protonix 40mg PO BID; Carafate 1g QID suspension. Upon DC please continue this med - need to be in suspension form (not the pills). PRN Zofran for nausea Additional recommendations: Monitor on telemetry due to intermittent tachycardia. Hemodynamically stable, Critical Care will sign off at this time. Thank you for including us in the care of this pt, please feel free to reconsult as needed. Consults & Procedures Consultants: Gastroenterology - Dr. Garcia Plate Washer - Dr. Sanches adaptive physical educator Procedures: Right IJ MAC Catheter placed 12/17/17 Removal of MAC Catheter 12/19/[address] Garcia - 12/17/17 Echocardiogram 12/18/17
[2017-12-21] VITALS (11 sets, daily range): BP systolic 125–142; BP diastolic 72–76; PULSE 91–111; TEMP 36.5–36.9; O2SAT 90–98
[2017-12-21] MEDS: LEVALBUTEROL 1.25MG/3ML NEB INH SCH ×4 (01:35→19:43)
[2017-12-21] MEDS: PIPERACILL/TAZOBAC IV 4.5 GM in DEXTROSE 5% 100ML 100 ML IV SCH (04:00)
[2017-12-21 07:26] LABS: HEMATOCRIT 28.6 % (42-52); HEMOGLOBIN 9.9 g/dL (14.0-18.0); MEAN CELL VOLUME 86.9 fL (80-100); MEAN CORPUSCULAR HEMOGLOBIN 30.1 pg (25-34); MEAN CORPUSCULAR HGB CONC 34.6 g/dl (32-36); MEAN PLATELET VOLUME 11.4 fL (7.4-10.4); PLATELET COUNT 128 K/uL (130-400); RED CELL DISTRIBUTION WIDTH CV 13.7 % (11.5-14.5); RED CELL DISTRIBUTION WIDTH SD 43.7 fL (36.4-46.3)
--- NOTE | 2017-12-21 08:31 | Hospitalist Progress Note ---
Hospitalist Progress Note Date of Service Dec 21, 2017. Subjective Pt evaluation today including: conversation w/ patient, physical exam, chart review, lab review, review of studies Pain: None PO Intake: Good, tolerating regular diet Voiding: no voiding problems The patient was seen and examined this morning. Pt reports feeling stronger today. He has been up walking about the floors without difficulty, no assistive device needed. He reports his breathing is pretty good, denies chest pain or chest tightness today. He is coughing without sputum production. He is having dark tarry bowel movements still, + passing flatus. Had an episode of nausea after lunch, but denies any vomiting. He is hoping for discharge home tomorrow. ROS: 6 point ROS reviewed and negative otherwise. Objective Vital Signs Date Time Temp Pulse Resp B/P (MAP) Pulse Ox O2 Delivery O2 Flow Rate FiO2 12/21/17 08:01 36.9 111 16 142/76 (98) 96 Room Air 12/21/17 06:45 103 18 96 Room Air 12/21/17 04:13 36.5 99 20 136/72 (93) 93 Room Air 12/21/17 04:00 Room Air 12/21/17 02:10 91 18 97 Room Air 12/21/17 00:01 Room Air 12/20/17 23:29 36.8 91 22 125/74 (91) 93 Room Air 12/20/17 21:00 97 18 98 Room Air 12/20/17 20:00 Room Air 12/20/17 19:28 37.1 88 20 126/75 (92) 98 Room Air 12/20/17 16:00 Room Air 12/20/17 15:48 36.6 92 20 123/73 (90) 93 Room Air 12/20/17 12:12 36.6 91 20 121/74 (90) 97 Room Air 12/20/17 12:00 Room Air 12/20/17 11:17 92 18 99 Room Air 12/20/17 09:35 37.0 96 16 120/76 97 12/20/17 08:35 37.2 99 18 117/72 98 Physical Exam Notes: General: awake, alert, no apparent distress, fatigued Head: Normocephalic, atraumatic ENT: PERRL, EOMI, no pharyngeal exudate, mucous membranes moist, + dressing over R neck c/d/i from central catheter placement now removed Chest: Clear to auscultation, on room air, no adventitious breath sounds Cardiac: Slightly tachycardic, HR mid 90s, + systolic murmur, no JVD, normal peripheral pulses, good capillary refill Abdominal: tolerating regular diet, NABS x 4 quadrants, soft, nontender to palpation, no rebound, guarding or tenderness Extremities: Normal inspection, no peripheral edema or erythema, calfs nontender to palpation Psych: Normal mood and affect Neuro: AAO x 3, speech is clear, no peripheral sensory deficits Laboratory Results Last 24 Hours Test 12/20/17 10:45 12/20/17 16:31 12/20/17 20:19 12/21/17 07:02 Bedside Glucose 145 mg/dl 80 mg/dl 85 mg/dl 108 mg/dl Test 12/21/17 07:07 White Blood Count 9.80 K/uL Red Blood Count 3.29 M/uL Hemoglobin 9.9 g/dL Hematocrit 28.6 % Mean Corpuscular Volume 86.9 fL Mean Corpuscular Hemoglobin 30.1 pg Mean Corpuscular Hemoglobin Concent 34.6 g/dl RDW Standard Deviation 43.7 fL RDW Coefficient of Variation 13.7 % Platelet Count 128 K/uL Mean Platelet Volume 11.4 fL Assessment and Plan 67 M with PMHx of PAF, ischemic CM and chronic systolic CHF with EF of 30-35% most recent echocardiogram being 2016, DM II uncontrolled, hyperthyroidism, diabetic retinopathy, HTN, HLD admitted with acute CHF exacerbation. Troponin was noted to be slightly elevated and started on heparin gtt. Subsequently the pt developed gross hematemesis with bright red blood. He was initially hypotensive which was resolved with administration of IV fluids and holding of futher IV lasix. Gastroenterology performed an emergent EGD once pressures stabilized, on 12/18, and found extensive esophageal erosion. He had multiple large nonbleeding esophageal ulcers, one of which was deep and cratered. There was no active bleeding at the time of the EGD. He has recieved 2 U of PRBC on . Pt was intubated for EGD on 12/17, left on intubation overnight in case of needs for repeat procedure, and successfully extubated on 12/18. Acute Gastrointestinal bleed Esophageal Erosion - GI on board - s/p egd, protonix gtt switched to 40 mg po BID, add carafate suspension ( will need at dc) - Monitor H&H, Hgb 9.9 after blood administered yesterday. - GI allowed full liquid diet today, advance as tolerated - Plan for repeat EGD in 8 weeks time to re-eval ulcer and to obtain biopsies per GI Acute Anemia - Secondary to esophageal bleeding - EGD without active bleeding, on protonix - S/p 2 U PRBCs on 12/17, follow serial H&H - ordering another 1 U PRBC today to maintain a Hgb around 10. Will give dose of lasix to prevent fluid overload prior to administration. - PT/OT consulted Acute on chronic systolic and diastolic CHF Ischemic Cardiomyopathy Elevated Troponin - resolved HTN HLD - Diuresed at time of admission with ~ 3 L outs, held then with acute onset of GI bleed and hypotension - now resolved. - Strict I/O with leonardo cath in place, daily weight, NPO until GI recs diet - Off heparin gtt - Cardiology on board - Echo completed on 12/18: EF of 25-30% with grade II diastolic dysfunction. - Increased metoprolol tart to 50 mg Qam and 25 mg QPM due to tachycardia per cardiology - Cont atorvastatin - Hold losartan 25 mg daily and lasix. - Troponins: 0.017 -->0.289 --> 0.378 at peak and trended downward. Possible Pneumonia in LLL - Started on zosyn for concerns of aspiration pneumonia with repetitive vomiting on 12/18 and after extubation - stoped on 12/21 and switched to levaquin - CXR showing small bilateral pleural effusions and patchy infiltrates either pna vs atelectasis from 12/20 - Encourage incentive spirometry, deep breaths, and ambulation once able. PAF - Currently in NSR, HR in the mid 90s -Continue metoprolol as above - Patient not on anticoagulation at home - has refused this in the past. DMII - last HbA1c 8.4 (08/05) - Hold glipizide 10 mg bid - ISS with accuchecks ac/hs CKD stage II-III - Appears to be around baseline of 1.1-1.2 - Follow prp Insomnia - Will trial ambien 5 mg HS tonight - pt has uses melatonin at home which helps although this is not available in house. CODE STATUS: FULL DVT ppx: teds, scds, ambulatory, no chemical anticoagulation with GI bleed Disposition: In tele, CM to assist with dc planning, from home, move to med surg today. Possible dc tomorrow.
[2017-12-21] MEDS: PANTOprazole SOD 40 MG TAB PO SCH ×2 (08:48→19:35)
[2017-12-21] MEDS: SUCRALFATE 1 GM/10 ML UDC PO SCH ×4 (08:48→19:34)
[2017-12-21] MEDS: MAGNESIUM CHLORIDE 64MG DELAYED REL TAB PO SCH (08:49)
[2017-12-21] MEDS: INSULIN ASPART 100 UNITS/ML 3 ML PEN SC SCH ×4 (08:53→22:07)
[2017-12-21] MEDS: INSULIN GLARGINE SOLOSTAR 100 UNITS/ML 3 ML PEN SC SCH ×2 (08:54→19:38)
[2017-12-21] MEDS ORDERED: METOPROLOL TARTRATE 50 MG TAB PO SCH (09:00)
[2017-12-21] MEDS ORDERED: FUROSEMIDE 40 MG TAB PO ONE (09:15)
--- NOTE | 2017-12-21 09:31 | Pharmacy Progress Note ---
Pharmacy Glycemic Short Note 2 Date of Service Dec 21, 2017. OUTPATIENT ANTIDIABETIC REGIMEN: * Glipizide ER 10mg PO BID ASSESSMENT: * Blood sugar at goal, no changes needed in inpatient regimen. * IV zosyn changed to PO levaquin today PLAN FOR INPATIENT GLYCEMIC CONTROL: * Hold outpatient oral diabetes medications * Basal insulin * Lantus SQ BID based on BSG * 0 units for BSG < 110mg/dl * 8 units for BSG 110-180mg/dl * 15 units for BSG >180mg/dl * Bolus insulin * NovoLog per scale ACHS or Q6hrs while NPO * Goal Range: Low 110 mg/dL - High 140 mg/dL * Correction Factor: 20 mg/dL/unit * Nutritional / Prandial insulin per carb ratio of 1 unit per 8 grams CHO consumed PLAN FOR DISCHARGE: * A1c = 7.0% - continue outpatient regimen
[2017-12-21] MEDS: LEVOFLOXACIN 750 MG TAB PO SCH (09:50)
[2017-12-21] MEDS ORDERED: METOPROLOL TARTRATE 25 MG TAB PO SCH (11:37)
--- NOTE | 2017-12-21 18:40 | Cardiology Follow-Up ---
Subjective General Date of Service: Dec 21, 2017. Chief Complaint: CHF; GI bleed Pt evaluation today including: conversation w/ patient, physical exam, chart review, lab review, review of studies, review of inpatient medication list History of Present Illness Patient seen this AM. Notes generalized fatigue. Mild dyspnea when ambulating in halls with PT. Denies chest pain. No dizziness. Has been receiving IV fluids due to only liquid diet. Small b/l pleural effusions noted on xray this AM. Allergies Coded Allergies: Amoxicillin (Verified Allergy, Severe, hives swelling redness lip swelling , 12/16/17) Clavulanic Acid (Verified Allergy, Severe, hypotensive shock, 12/16/17) Iodinated Diagnostic Agents (Verified Allergy, Intermediate, HIVES, ) Prednisone (Verified Allergy, Intermediate, SHORTNESS OF BREATH, 12/16/17) as per patient Social History Smoking Status: Unknown if Ever Smoked Hx Tobacco Use In Past Year?: No Hx Alcohol Use - Type And Amou: No Hx Substance Use - Type And Am: No Problem List Medical Problems: (1) Abscess of right foot including toes Status: Acute (2) Acute chest pain Status: Acute (3) DANIEL (acute kidney injury) Status: Acute (4) Cellulitis Status: Acute (5) CHF exacerbation Status: Acute (6) Dehydration Status: Acute (7) Diabetic foot infection Status: Acute (8) Elevated troponin Status: Acute (9) Leukocytosis Status: Acute (10) Lymphangitis, acute, lower leg Status: Acute (11) Sepsis Status: Acute Review of Systems Respiratory: + shortness of breath, + dyspnea on exertion, No cough, No wheezing, No dyspnea at rest, No hemoptysis Cardiac: No chest pain, No orthopnea, No PND, No edema, No palpitations Physical Exam Vital Signs Last Vital Signs Documentation Date Time Temp Pulse Resp B/P (MAP) Pulse Ox O2 Delivery O2 Flow Rate FiO2 12/21/17 13:30 36.8 96 18 129/73 (91) 98 Room Air 12/21/17 11:53 2.0 12/18/17 12:15 50 Physical Exam Constitutional: General Apperance: well-nourished Level of Distress: NAD Psychiatric: Mental Status: active & alert Orientation: to time, to place, to person Head: normocephalic Eyes: Pupils: PERRLA Neck: supple Lungs: Auscultation: no wheezing, deminished air movement, wet rales/crackles Cardiovascular: Heart Auscultation: RRR, normal S1, normal S2, no murmurs Abdomen: Bowel Sounds: normal Inspection & Palpation: soft, non-distended Extremities: no edema Assessment and Plan Assessment and Plan ASSESSMENT: 67 year old male 1. Admitted for Acute on chronic decompensated systolic HF, symptoms improved initially with IV furosemide. 2. Mildly elevated troponin, at 0.2, consistent with CHF exacerbation and underlying cardiomyopathy. Not indicative of ACS 3. Significant Hemoptysis resulting in significant drop in hemoglobin, hypotension, transferred to ICU. 2 units PRBC's transfused. 4. EGD revealed Multiple large Non-bleeding esophageal ulcers. One of the ulcers is deep and cratered. Not actively bleeding per GI notes. 5. History of Coronary artery disease, ischemic cardiomyopathy LVEF 30-35% per echo in 07/2017. 6. Hypertension, now hypotensive. 7. Paroxysmal afib - Currently NSR. Patient declines anticoagulation therapy 8. Longstanding noncompliance with medication and recommendations. 9. Rigors/tachycardia, chest xray demonstrating possible infiltrate, starting on antibiotics for underlying pneumonia PLAN: GI advancing diet. Discontinue IV fluids Resume furosemide 40 mg daily (home dose) due to small b/l pleural effusions and dyspnea with ambulation. Low threshold for IV furosemide PRN. Resume losartan. PRP tomorrow. Continue metoprolol 50 mg in AM and 25 mg in PM. If HR's remain elevated, consider increasing to 50 BID. Monitor Hbg. Maintain hbg around 10 due to ischemic cardiomyopathy. Echo findings stable, consistent with ischemic cardiomyopathy. Case discussed with Dr. Pulido. Will follow. Laboratory Results Last 24 Hours Test 12/20/17 16:31 12/20/17 20:19 12/21/17 07:02 12/21/17 07:07 Bedside Glucose 80 mg/dl 85 mg/dl 108 mg/dl White Blood Count 9.80 K/uL Red Blood Count 3.29 M/uL Hemoglobin 9.9 g/dL Hematocrit 28.6 % Mean Corpuscular Volume 86.9 fL Mean Corpuscular Hemoglobin 30.1 pg Mean Corpuscular Hemoglobin Concent 34.6 g/dl RDW Standard Deviation 43.7 fL RDW Coefficient of Variation 13.7 % Platelet Count 128 K/uL Mean Platelet Volume 11.4 fL Test 12/21/17 11:22 Bedside Glucose 195 mg/dl
[2017-12-21] MEDS: METOPROLOL TARTRATE 25 MG TAB PO SCH (19:36)
[2017-12-22 00:25] VITALS: BP 109/71; PULSE 91; TEMP 36.6; O2SAT 95
[2017-12-22 02:00] VITALS: PULSE 95; O2SAT 96
[2017-12-22] MEDS: LEVALBUTEROL 1.25MG/3ML NEB INH SCH ×2 (02:00→07:11)
[2017-12-22 06:56] LABS: CREATININE 1.19 mg/dl (0.60-1.40); POTASSIUM 3.1 mmol/L (3.5-5.1)
[2017-12-22 07:11] VITALS: PULSE 95; O2SAT 96
[2017-12-22 07:55] VITALS: BP 145/78; PULSE 111; TEMP 36.8; O2SAT 97
[2017-12-22] MEDS ORDERED: FUROSEMIDE 40 MG TAB PO SCH (08:00)
[2017-12-22] MEDS ORDERED: POTASSIUM CHLORIDE 20 MEQ TABCR PO STA (08:06)
[2017-12-22 08:26] LABS: BASO % 0.3 %; BASO ABS # 0.03 K/uL (0-0.2); EOS % 1.7 %; EOS ABS # 0.16 K/uL (0-0.5); HEMATOCRIT 29.3 % (42-52); HEMOGLOBIN 10.1 g/dL (14.0-18.0); IG# 0.04 K/uL (0.00-0.02); LYMPH % 12.2 %; LYMPH ABS # 1.18 K/uL (1.2-3.4); MEAN CELL VOLUME 86.9 fL (80-100); MEAN PLATELET VOLUME 11.1 fL (7.4-10.4); MONO % 11.9 %; MONO ABS # 1.15 K/uL (0.11-0.59); NEUT % 73.5 %; NEUT ABS # 7.09 K/uL (1.4-6.5); NUCLEATED RED BLOOD CELL ABS 0.02 K/uL (0-0); PLATELET COUNT 169 K/uL (130-400); RED CELL DISTRIBUTION WIDTH CV 13.9 % (11.5-14.5); RED CELL DISTRIBUTION WIDTH SD 43.5 fL (36.4-46.3); WHITE BLOOD COUNT 9.65 K/uL (4.8-10.8)
[2017-12-22 08:35] LABS: MEAN CORPUSCULAR HGB CONC 34.5 g/dl (32-36)
[2017-12-22] MEDS: SUCRALFATE 1 GM/10 ML UDC PO SCH (08:44)
[2017-12-22] MEDS: LOSARTAN POTASSIUM 25 MG TAB PO SCH (08:45)
[2017-12-22] MEDS: MAGNESIUM CHLORIDE 64MG DELAYED REL TAB PO SCH (08:46)
[2017-12-22] MEDS: PANTOprazole SOD 40 MG TAB PO SCH (08:46)
[2017-12-22] MEDS ORDERED: LVQ750 PO (09:11)
[2017-12-22] MEDS ORDERED: METO50TA16 PO (09:11)
[2017-12-22] MEDS ORDERED: CRFUDL PO (09:11)
[2017-12-22] MEDS ORDERED: AMB5 PO (09:11)
[2017-12-22] MEDS ORDERED: PRT40 PO (09:11)
--- NOTE | 2017-12-22 09:19 | Discharge Instructions ---
Discharge Instructions Date of Service Dec 22, 2017. Admission Reason for Admission: Chf Exacerbation Discharge Discharge Diagnosis / Problem: acute CHF exacerbation. esophageal ulceration bleeding Discharge Goals Goal(s): Decrease discomfort, Improve function, Increase independence, Improve disease control, Improve nutritional status, Learn about illness, Diagnostic testing, Therapeutic intervention, Prevent Disease Progression, Specific goals Activity Recommendations Activity Limitations: as noted below (slowly increased as tolerated ) Shower/Bathe: no limitations . Instructions / Follow-Up Instructions / Follow-Up you have cute CHF exacerbation. you have extensive esophageal ulceration. you need to continue Protonix 40 mg po BID, Carafate suspension, soft diet, need to follow up with Gi service and plan for possible repeat EGD in 2 weeks your medicine for heart disease Metoprolol has increased to 50 mg twice daily, need to check BP before taking medicine, and hold this medicine when Systolic blood pressure <105, or Heart rate <60 Possible Pneumonia in LLL, you need to continue antibiotics Levaquin for 3 days more - you need to follow up with your primary care physician in 1 week, - take medication as instructed, never overdose or any misuse, or take with alcohol, because misuse of medicine may cause organ damage or , call your primary care physician if have questions of medicaitons. - call your primary care physician OR go to local emergency room if has any fever/chill, chest pain, shortness of breathing, nausea/vomiting/abdominal pain , facial droop/slurry speech/local weakness, or if has any questions. - fall precaution - diet as instructed - you need to follow up with your subspecialists, such as hvac service technician and Gi service as instructed by them - you should understand that it is important to follow up the above instruction , and "not following the above instruction" may cause delayed or missed care of your medical conditions which may cause permanent organ damage and even . Current Hospital Diet Patient's current hospital diet: Low Sodium Diet (2gm Na), AHA Diet (Heart Healthy), Diabetes Type 2 Diet Discharge Diet Recommended Diet: Diabetes Type 2 Diet Fluid Restriction: 1800 ml (7 cups) Procedures Procedures Performed: Esophagogastroduodenoscopy Pending Studies Studies pending at discharge: no Laboratory Results Hemoglobin A1c Test 12/18/17 16:17 Range/Units Estimated Average Glucose 154 mg/dl Hemoglobin A1c 7.0 H 4.5-5.6 % Medical Emergencies . Who to Call and When: Medical Emergencies: If at any time you feel your situation is an emergency, please call 911 immediately. . Non-Emergent Contact Non-Emergency issues call your: Primary Care Provider, Clean Up Person, Pelt Dropper Call Non-Emergent contact if: you have a fever (and if have dizziness) . . "Provider Documentation" section prepared by Bright Carrillo. . VTE Core Measure Inpt VTE Proph given/why not?: SCD's
[2017-12-22] MEDS: INSULIN ASPART 100 UNITS/ML 3 ML PEN SC SCH (09:32)
[2017-12-22] MEDS: INSULIN GLARGINE SOLOSTAR 100 UNITS/ML 3 ML PEN SC SCH (09:33)
[2017-12-22 10:26] VITALS: BP 145/78; PULSE 111; TEMP 36.8; O2SAT 97
[2017-12-22] MEDS: LEVOFLOXACIN 750 MG TAB PO SCH (10:54)
--- NOTE | 2017-12-22 15:01 | Discharge Summary ---
Discharge Summary Date of Service Dec 22, 2017. Discharge Summary Admission Date: Dec 17, 2017 at 15:43 Discharge Date: Dec 22, 2017 Discharge Disposition: Home Principal Diagnosis: Acute Gastrointestinal bleed Problems/Secondary Diagnoses: Esophageal ulcers Acute Anemia Acute on chronic systolic and diastolic CHF Ischemic Cardiomyopathy Elevated Troponin - resolved HTN HLD Immunizations: Have You Had Influenza Vaccine: No History of Tetanus Vaccine?: No History of Pneumococcal: No History of Hepatitis B Vaccine: No Procedures: Urgent EGD, right IJ, Consultations: Mason Foreman/Superintendant, beam builder, GI Medication Reconciliation New Medications: Levofloxacin (Levofloxacin) 750 Mg Tab 750 MG PO DAILY@11 for 3 Days, #3 TAB Metoprolol Tartrate (Lopressor) (Lopressor) 50 Mg Tab 50 MG PO BID for 30 Days, #60 TAB hold when sbp<105, HR<60 Pantoprazole (Pantoprazole Sodium) 40 Mg Tab 40 MG PO BID for 30 Days, #60 TAB Sucralfate (Sucralfate) 1 Gm/10 Ml Susp 1 GM PO QID for 7 Days, #1 Zolpidem Tartrate (Zolpidem Tartrate) 5 Mg Tab 5 MG PO HS PRN for Sleep for 14 Days, #14 TAB Continued Medications: Ascorbic Acid (Ascorbic Acid) 1,000 Mg Tab 1000 MG PO BID B-Complex Vitamins (Vitamin B Complex) 1 Tab Tab 1 TAB PO DAILY Coenzyme Q10 (Ubidecarenone) (Co Q 10) 100 Mg Cap 200 MG PO DAILY Furosemide (Lasix) 40 Mg Tab 40 MG PO DAILY, TAB Glipizide (Glipizide Er) 10 Mg Tab 10 MG PO BID, TAB Losartan Potassium (Losartan Potassium) 25 Mg Tab 25 MG PO DAILY Magnesium Chloride (Slow-Mag Tab) 64 Mg Tabcr 2 TABS PO DAILY, TAB Metoprolol Tartrate (Lopressor) (Lopressor) 25 Mg Tab 25 MG PO BID, TAB Nitroglycerin (Nitrostat) 0.4 Mg Sub 0.4 MG UT PRN, BTL Discontinued Medications: Sildenafil Citrate (Pulmonary (Sildenafil) 20 Mg Tab 20-40 MG PO DIRECTED PRN for SEXUAL INTERCOURSE Discharge Exam Still feel that it'll be fatigue, otherwise no nausea vomiting, no hemoptysis, no blood in the stool, denied dizziness Review of Systems: Constitutional: + weakness, + fatigue, No fever, No chills, No sweats, No problem reported ENT: No hearing loss, No unusual epistaxis, No nasal symptoms, No sore throat, No tinnitus, No dental problems, No trouble swallowing, No problem reported Respiratory: No cough, No sputum, No wheezing, No shortness of breath, No dyspnea on exertion, No dyspnea at rest, No hemoptysis, No problem reported Cardiovascular: No chest pain, No orthopnea, No PND, No edema, No claudication, No palpitations, No problem reported Abdomen: No pain, No nausea, No vomiting, No diarrhea, No constipation, No GI bleeding, No problem reported Musculoskeletal: No joint pain, No muscle pain, No swelling, No calf pain, No problem reported Genitourinary - Male: No hematuria, No dysuria, No urinary frequency, No urinary urgency, No urinary hesitancy, No urinary retention, No urinary incontinence, No penile discharge, No lesions, No impotence, No problem reported Neurologic: No memory loss, No paralysis, No weakness, No numbness/tingling , No vertigo, No balance problems, No problem reported Psychiatric: No depression symptoms, No anhedonism, No anxiety, No insomnia , No substance abuse, No problem reported Endocrine: No fatigue, No excessive thirst, No excessive urination, No problem reported Hematologic / Lymphatic: No abnormal bleeding/bruising, No clotting problems , No swollen lymph nodes, No night sweats, No problem reported Integumentary: No rash, No itch, No new/changing skin lesions, No color change, No bleeding, No problem reported Physical Exam: General Appearance: WD/WN, no apparent distress, + thin, + pertinent finding (looks tired and chronically on looking) Eyes: normal inspection, PERRL, EOMI ENT: normal ENT inspection, hearing grossly normal, TMs normal Neck: supple, no adenopathy, thyroid normal Respiratory/Chest: chest non-tender, normal breath sounds, no respiratory distress, no accessory muscle use, + respiratory distress Cardiovascular: regular rate, rhythm, no edema, no gallop, no JVD, no murmur , normal peripheral pulses Abdomen / GI: normal bowel sounds, non tender, soft Extremities: normal inspection, no calf tenderness, normal capillary refill , no pedal edema, normal range of motion Neurologic/Psychiatric: pocket cutter II-XII nml as tested, no motor/sensory deficits , alert, normal mood/affect, normal reflexes, oriented x 3 Hospital Course 67 M with PMHx of PAF, ischemic CM and chronic systolic CHF with EF of 30-35% most recent echocardiogram being 2016, DM II uncontrolled, hyperthyroidism, diabetic retinopathy, HTN, HLD admitted with acute CHF exacerbation. Troponin was noted to be slightly elevated and started on heparin gtt. Subsequently the pt developed gross hematemesis with bright red blood. He was initially hypotensive which was resolved with administration of IV fluids and holding of futher IV lasix. Gastroenterology performed an emergent EGD once pressures stabilized, on 12/18, and found extensive esophageal ulceration. He had multiple large nonbleeding esophageal ulcers, one of which was deep and cratered. There was no active bleeding at the time of the EGD. He has recieved 2 U of PRBC on . Pt was intubated for EGD on 12/17, left on intubation overnight in case of needs for repeat procedure, and successfully extubated on 12/18. Acute Gastrointestinal bleed , stable resolved Esophageal ulcerations - GI on board - s/p egd, protonix gtt switched to 40 mg po BID, add carafate suspension ( will need at dc) - Monitor H&H, Hgb 9.9 after blood administered yesterday. - GI allowed full liquid diet today, advance as tolerated - Plan for repeat EGD in 8 weeks time to re-eval ulcer and to obtain biopsies per GI, continue Protonix , 40mg by mouth twice a day Acute Anemia Secondary to esophageal bleeding EGD without active bleeding, on protonix S/p 2 U PRBCs on 12/17, follow serial H&H - ordering another 1 U PRBC today to maintain a Hgb around 10. Will give dose of lasix to prevent fluid overload prior to administration. Acute on chronic systolic and diastolic CHF Ischemic Cardiomyopathy Elevated Troponin - resolved HTN HLD Cardiology on board Echo completed on 12/18: EF of 25-30% with grade II diastolic dysfunction: Currently metoprolol tart to 50 mg bid due to tachycardia per cardiology Cont atorvastatin Restart home dose losartan Troponins: , Was traced at peak and trended downward. Possible Pneumonia in LLL, has been stable about 4-5 days, will continue to, Levaquin for 3 days more to complete full course of treatment PAF - Currently in NSR, HR in the mid 90s -Continue metoprolol as above - Patient not on anticoagulation at home - has refused this in the past. DMII - last HbA1c 8.4 (08/05) - Hold glipizide 10 mg bid - ISS with accuchecks ac/hs, and then test advised to follow-up with PCP for the diabetic, patient possible need to fci CKD stage II-III, around baseline of 1.1-1.2 Insomnia - Will trial ambien 5 mg HS tonight - pt has uses melatonin at home which helps although this is not available in house. CODE STATUS: FULL DVT ppx: teds, scds, ambulatory, no chemical anticoagulation with GI bleed Instructions / Follow-Up you have cute CHF exacerbation. you have extensive esophageal ulceration. you need to continue Protonix 40 mg po BID, Carafate suspension, soft diet, need to follow up with Gi service and plan for possible repeat EGD in 2 weeks your medicine for heart disease Metoprolol has increased to 50 mg twice daily, need to check BP before taking medicine, and hold this medicine when Systolic blood pressure <105, or Heart rate <60 Possible Pneumonia in LLL, you need to continue antibiotics Levaquin for 3 days more - you need to follow up with your primary care physician in 1 week, - take medication as instructed, never overdose or any misuse, or take with alcohol, because misuse of medicine may cause organ damage or , call your primary care physician if have questions of medicaitons. - call your primary care physician OR go to local emergency room if has any fever/chill, chest pain, shortness of breathing, nausea/vomiting/abdominal pain , facial droop/slurry speech/local weakness, or if has any questions. - fall precaution - diet as instructed - you need to follow up with your subspecialists, such as beam builder and Gi service as instructed by them - you should understand that it is important to follow up the above instruction , and "not following the above instruction" may cause delayed or missed care of your medical conditions which may cause permanent organ damage and even . Total Time Spent: Greater than 30 minutes This includes examination of the patient, discharge planning, medication reconciliation, and communication with other providers. Discharge Instructions Please refer to the electronic Patient Visit Report (Discharge Instructions) for additional information. Additional Copies To Andres Landa D.O.; Aissatou Chin M.D.; Michelle Garcia, DO
[2017-12-22] MEDS ORDERED: METOPROLOL TARTRATE 50 MG TAB PO SCH (20:00)
== END 2017-12-22 11:13 | disposition home or self-care (01) | DRG 291 ==
LOC: C.EDB 21:27 → C.2T 12-17 02:36 → ENRESERV 12-17 02:56 → C.MSICU 12-17 14:47 → OBSVTOIN 12-17 15:43 → ENRESERV 12-19 18:23 → C.2T 12-19 18:56 → C.4E 12-21 11:44 → ENRESERV 12-21 12:03
PROVIDERS: ADMIT Student in an Organized Health Care Education/Training Program; ATTEND Hospitalist
PROC: 05HM33Z Insertion of Infusion Device into Right Internal Jugular Vein, Percutaneous Approach (ICD-10-PCS; 2017-12-17)
PROC: 0DJ08ZZ Inspection of Upper Intestinal Tract, Via Natural or Artificial Opening Endoscopic (ICD-10-PCS; principal; 2017-12-17 19:35)
DX: I13.0 Hypertensive heart and chronic kidney disease with heart failure and stage 1 through stage 4 chronic kidney disease, or unspecified chronic kidney disease (principal); K22.11 Ulcer of esophagus with bleeding; I50.23 Acute on chronic systolic (congestive) heart failure; J69.0 Pneumonitis due to inhalation of food and vomit; D62 Acute posthemorrhagic anemia; N18.3 Chronic kidney disease, stage 3 (moderate); I48.0 Paroxysmal atrial fibrillation; E11.65 Type 2 diabetes mellitus with hyperglycemia; E78.5 Hyperlipidemia, unspecified; I95.9 Hypotension, unspecified; I25.5 Ischemic cardiomyopathy; E11.319 Type 2 diabetes mellitus with unspecified diabetic retinopathy without macular edema; R00.0 Tachycardia, unspecified; G47.00 Insomnia, unspecified; Z79.899 Other long term (current) drug therapy; Z88.1 Allergy status to other antibiotic agents; Z91.041 Radiographic dye allergy status; Z91.14 Patient's other noncompliance with medication regimen

== ENCOUNTER 2017-12-29 20:30 | Inpatient (IN) | payer OTHER, BC ==
[~2017-12-29] VITALS: Ht 177.8 cm; Wt 84.5 kg
[~2017-12-29 20:30] MED LIST changes: +AMB5 PO; +COEN1CAP17 PO; +CRFUDL PO; +CZR25 PO; -LOSA1TAB PO; +LVQ750 PO; +METO50TA16 PO; -NTRGSL/4 UT; +PRT40 PO; +SLWMEC PO
[2017-12-29] MEDS ORDERED: FUROSEMIDE 40 MG/4 ML VIAL IV STA (20:59)
[2017-12-29] MEDS ORDERED: ONDANSETRON INJ 2 MG/ML 2 ML VIAL IV STA (20:59)
--- NOTE | 2017-12-29 21:02 | EMERGENCY ROOM VISIT NOTE ---
History Report prepared by Farrah: Concetta Hurst Under the Supervision of: Dr. Robin Koch M.D. First contact with patient: 20:51 Chief Complaint: CARDIAC ASSESSMENT Stated Complaint: CONGESTIVE HEART FAILURE, FLUID BUILD UP History of Present Illness The patient is a 67 year old male who presents to the Emergency Room with complaints of congestive heart failure and fluid build-up this morning. He is accompanied by his who notes his feet are also very swollen. The patient reports he has discomfort and has started a new medication and has been throwing up because of it. Source of History: patient, spouse/significant other () Onset: this morning Position: abdomen Associated Symptoms: + vomiting Note: Positive feet swelling Review of Systems See HPI for pertinent positives & negatives. A total of 10 systems reviewed and were otherwise negative. 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, right Surgical Problems: (1) H/O cardiac catheterization (2) H/O heart artery stent (3) H/O heart bypass surgery (4) Status post double vessel coronary artery bypass Family History Cancer Diabetes mellitus FH ischemic heart disease Social History Smoking Status: Never Smoker Alcohol Use: none Drug Use: none Marital Status: in relationship Housing Status: lives alone Occupation Status: employed Current/Historical Medications Scheduled Ascorbic Acid (Ascorbic Acid), 1,000 MG PO BID B-Complex Vitamins (Vitamin B Complex), 1 TAB PO DAILY Coenzyme Q10 (Ubidecarenone) (Co Q 10), 200 MG PO DAILY Furosemide (Lasix), 40 MG PO DAILY Glipizide (Glipizide Er), 10 MG PO BID Losartan Potassium (Losartan Potassium), 25 MG PO DAILY Magnesium Chloride (Slow-Mag Tab), 2 TABS PO DAILY Metoprolol Tartrate (Lopressor) (Lopressor), 50 MG PO BID Nitroglycerin (Nitrostat), 0.4 MG UT PRN Pantoprazole (Pantoprazole Sodium), 40 MG PO BID Sucralfate (Sucralfate), 1 GM PO QID Allergies Coded Allergies: Amoxicillin (Verified Allergy, Severe, hives swelling redness lip swelling , 12/16/17) Clavulanic Acid (Verified Allergy, Severe, hypotensive shock, 12/16/17) Iodinated Diagnostic Agents (Verified Allergy, Intermediate, HIVES, ) Prednisone (Verified Allergy, Intermediate, SHORTNESS OF BREATH, 12/16/17) as per patient Physical Exam Vital Signs Date Time Temp Pulse Resp B/P (MAP) Pulse Ox O2 Delivery O2 Flow Rate FiO2 12/29/17 22:31 126/78 12/29/17 22:30 99 34 91 12/29/17 22:05 100 22 130/79 98 Room Air 12/29/17 22:05 130/79 12/29/17 22:00 100 29 94 12/29/17 21:30 100 21 12/29/17 21:22 102 12/29/17 21:13 96 Room Air 12/29/17 21:13 96 Room Air 12/29/17 21:13 110 20 127/79 96 Room Air 12/29/17 21:10 127/79 12/29/17 20:37 36.8 102 18 128/82 100 Room Air Physical Exam GENERAL: Patient is a healthy-appearing well-nourished male HEAD: Normocephalic atraumatic EYES: Ocular movements intact pupils equal and react to light OROPHARYNX mucous membranes are moist no exudates present no erythema or edema present NECK: Supple no nuchal rigidity CHEST: Good equal expansion. Old surgical scar across the chest. LUNGS: Clear and equal to auscultation CARDIAC: Normal S1 and S2 ABDOMEN: Soft nontender no guarding BACK: No CVA tenderness EXTREMITIES: No pain upon palpation normal muscle strength in all groups no clubbing cyanosis or edema NEURO: Patient is following commands and answering questions appropriately. Alert and oriented x3 Cranial Nerves 2-12 grossly intact Medical Decision & Procedures ER Provider Diagnostic Interpretation: Radiology results as stated below per my review and radiologist interpretation: CHEST ONE VIEW PORTABLE CLINICAL HISTORY: 67 years-old Male presenting with CHEST PAIN. TECHNIQUE: Portable upright AP view of the chest was obtained. COMPARISON: 12/20/2017. FINDINGS: Atherosclerosis of aortic arch. Cardiac silhouette enlarged. Median sternotomy wires and mediastinal surgical clips noted. Mild prominence of pulmonary vasculature. Obscuration of the left hemidiaphragm. Suspected small left pleural effusion. Right lung and pleural space clear. Osseous structures normal. Upper abdomen normal. IMPRESSION: 1. Left basilar consolidation may represent pneumonia, aspiration, or extensive atelectasis in the setting of left pleural effusion. This is worsened from prior. Electronically signed by: Matthew Mccabe M.D. 12/29/2017 9:25 PM Dictated Date/Time: 12/29/2017 9:24 PM Laboratory Results Test 12/29/17 20:50 12/29/17 21:15 Direct Bilirubin 0.3 mg/dl (0-0.2) Total Creatine Kinase 61 U/L (39-308) Creatine Kinase MB 1.8 ng/ml (0.5-3.6) Creatine Kinase MB Ratio 3.0 (0-3.0) Pro-B-Type Natriuretic Peptide 00413 pg/ml (0-900) Beta-Hydroxybutyric Acid 16.60 mg/dL (0.2-2.81) Influenza Type A Antigen Neg for Influ A (NEG) Influenza Type B Antigen Neg for Influ B (NEG) Labs reviewed by ED physician. Medications Administered Medications (Trade) Dose Ordered Sig/[place] Route Start Time Stop Time Status Last Admin Dose Admin Furosemide (Lasix Inj) 40 mg NOW STAT IV 12/29/17 20:59 12/29/17 21:01 DC 12/29/17 21:33 40 MG Ondansetron HCl (Zofran Inj) 4 mg NOW STAT IV 12/29/17 20:59 12/29/17 21:01 DC 12/29/17 21:33 4 MG Ceftriaxone Sodium (Rocephin Inj) 1 gm NOW STAT IV 12/29/17 21:34 12/29/17 21:37 DC 12/29/17 21:55 1 GM Levofloxacin (Levaquin / D5W) 750 mg NOW STAT IV 12/29/17 21:34 12/29/17 21:37 DC 12/29/17 21:55 750 MG Insulin Human Regular (novoLIN-R U-100 PER UNIT) 10 units NOW STAT SC 12/29/17 21:47 12/29/17 21:48 DC 12/29/17 22:04 10 UNITS Ondansetron HCl (Zofran Inj) 4 mg Q6H PRN IV 12/29/17 23:45 01/28/18 23:44 12/30/17 19:12 4 MG ECG Indication: chest pain Rate (beats per minute): 103 Rhythm: sinus tachycardia Findings: T-wave inversion (Lateral), other (Old Anterior Infarct ) Change: Patient's electrocardiogram per my interpretation. ED Course 2052: Past medical records reviewed. The patient was evaluated in room A. A complete history and physical examination was performed. 2058: Zofran Inj 4 mg Furosemide 40 mg IV 2133: Lasix Inj 40 mg IV Levofloxacin 750 mg IV Rocephin Inj 1 gm IV 2146: Insulin Human Regular 10 units SC 2155: I discussed the patient's case with Dr. Salmeron [facility], he has agreed to evaluate the patient for further management and care. Medical Decision Differential diagnosis: Etiologies such as cardiac ischemia, aortic dissection, pulmonary embolism, pneumonia, pneumothorax, musculoskeletal, infections, pericarditis, myocarditis , esophageal rupture, gastrointestinal, as well as others were entertained. This is a 67-year-old male who presents emergency department complaining of chest tightness. The patient has a known pleural effusion and is supposed to have this drained in the upcoming week however the patient is short of breath. He appears to have a pneumonia on his chest x-ray and he has an elevation in his white blood count cell count as well as his troponin. For this reason the patient was started on antibiotics. He also has an elevation in his white blood count cell count. I did discuss the case with the hospitalist service who agreed to admit the patient. Patient was in agreement with treatment plan. Medication Reconcilliation Current Medication List: was personally reviewed by me Blood Pressure Screening Patient's blood pressure: Normal blood pressure Consults Time Called: 2149 Consulting Physician: Dr. Salmeron [facility] Returned Call: [phone] He will further evaluate the patient Impression Primary Impression: Pneumonia Scribe Attestation The scribe's documentation has been prepared under my direction and personally reviewed by me in its entirety. I confirm that the note above accurately reflects all work, treatment, procedures, and medical decision making performed by me. Departure Information Dispostion Being Evaluated By Hospitalist Referrals Aissatou Chin M.D. (PCP) Patient Instructions My [facility] Problem Qualifiers Primary Impression: Pneumonia Pneumonia type: due to unspecified organism Laterality: unspecified laterality Lung location: unspecified part of lung Qualified Codes: J18.9 - Pneumonia, unspecified organism
[2017-12-29 21:23] LABS: BASO % 0.1 %; BASO ABS # 0.01 K/uL (0-0.2); HEMOGLOBIN 11.3 g/dL (14.0-18.0); IG# 0.05 K/uL (0.00-0.02); LYMPH % 3.7 %; LYMPH ABS # 0.49 K/uL (1.2-3.4); MEAN CELL VOLUME 87.8 fL (80-100); MEAN CORPUSCULAR HEMOGLOBIN 30.1 pg (25-34); MEAN CORPUSCULAR HGB CONC 34.2 g/dl (32-36); MEAN PLATELET VOLUME 11.9 fL (7.4-10.4); MONO % 6.4 %; MONO ABS # 0.85 K/uL (0.11-0.59); NEUT % 89.4 %; NEUT ABS # 11.89 K/uL (1.4-6.5); PLATELET COUNT 268 K/uL (130-400); RED CELL DISTRIBUTION WIDTH SD 44.2 fL (36.4-46.3); WHITE BLOOD COUNT 13.29 K/uL (4.8-10.8)
--- NOTE | 2017-12-29 21:27 | DIAGNOSTIC IMAGING REPORT ---
CHEST ONE VIEW PORTABLE CLINICAL HISTORY: 67 years-old Male presenting with CHEST PAIN. TECHNIQUE: Portable upright AP view of the chest was obtained. COMPARISON: 12/20/2017. FINDINGS: Atherosclerosis of aortic arch. Cardiac silhouette enlarged. Median sternotomy wires and mediastinal surgical clips noted. Mild prominence of pulmonary vasculature. Obscuration of the left hemidiaphragm. Suspected small left pleural effusion. Right lung and pleural space clear. Osseous structures normal. Upper abdomen normal. IMPRESSION: 1. Left basilar consolidation may represent pneumonia, aspiration, or extensive atelectasis in the setting of left pleural effusion. This is worsened from prior. Electronically signed by: Matthew Mccabe M.D. 12/29/2017 9:25 PM Dictated Date/Time: 12/29/2017 9:24 PM
[2017-12-29] MEDS ORDERED: CEFTRIAXONE SOD INJ 1 GM ADDVIAL IV STA (21:34)
[2017-12-29] MEDS ORDERED: LEVAQUIN 750MG / 150ML D5W IV STA (21:34)
[2017-12-29] MEDS ORDERED: METO50TA16 PO (21:44)
[2017-12-29 21:45] LABS: INFLUENZA B ANTIGEN Neg for Influ B (NEG)
[2017-12-29 21:46] LABS: CALCIUM 8.8 mg/dl (8.5-10.1); CKMB 1.8 ng/ml (0.5-3.6); CREATININE 1.77 mg/dl (0.60-1.40); POTASSIUM 3.9 mmol/L (3.5-5.1); TOTAL PROTEIN 6.9 gm/dl (6.4-8.2)
[2017-12-29] MEDS ORDERED: NovoLIN-R INSULIN PER UNIT CHARGE SC STA (21:47)
[2017-12-29] MEDS ORDERED: VANCOMYCIN CONSULT ACTIVE PRN (23:45)
[2017-12-29] MEDS ORDERED: VANCOMYCIN INJ 1,000 MG in SODIUM CHLORIDE 0.9% 250ML 250 ML IV SCH (23:45)
[2017-12-29] MEDS ORDERED: POLYETHYLENE (MIRALAX) 17 GM PACK PO PRN (23:45)
[2017-12-29] MEDS ORDERED: IV FLUIDS COMPLETED PRN (23:45)
[2017-12-29] MEDS ORDERED: ALUMINUM/MAGNESIUM/SIMETH (MAALOX MAX) 30 ML UDC PO PRN (23:45)
[2017-12-29] MEDS ORDERED: MAGNESIUM HYDROXIDE SUSP 30 ML UDC PO PRN (23:45)
--- NOTE | 2017-12-29 23:54 | History and Physical ---
History & Physical Date & Time of Service: Dec 29, 2017 at 23:53 Chief Complaint: Congestive Heart Failure, Fluid Build Up Primary Care Physician: Aissatou Chin M.D. History of Present Illness Source: patient, family, hospital records Patient is a 67 year old male with a PMH of Diastolic CHF, DMT2, Afib, HLD, and HTN that has presented to [facility] due to worsening shortness of breath as well as difficulty swallowing. His shortness of breath started last Sunday after being discharged from the hospital for a GI bleed, CHF exacerbation and pneumonia last Sunday. He says the shortness of breath is worse with exertion and he has noticed it at rest. He has also noticed worsening leg swelling. He has had an associated cough with green sputum and extreme fatigue. He denies any chest pain, palpitations or worsening shortness of breath with laying flat. He has also been experiencing difficulty swallowing since being admitted last week. He says it started after being intubated for his upper GI bleed. He is able to keep down liquids but he feels that food gets stuck in his throat and then he vomits it back. This is new for him. He denies any diarrhea, constipation or GI bleeding. He also denies any abdominal pain. His EGD last week showed several large ulcerating esophageal ulcers. Past Medical/Surgical History Medical Problems: (1) Abnormal EKG Status: Resolved (2) Atrial Fibrillation Status: Resolved (3) CHF (congestive heart failure) Status: Chronic (4) CHF (congestive heart failure) Status: Chronic (5) Diab [place] Compl, Type Ii Or Unspec Type, Not Uncntrld Status: Chronic (6) Hyperglycemia Status: Resolved (7) Hyperlipidemia Nec/Nos Status: Chronic (8) Hypertension Nos Status: Chronic (9) New left bundle branch block Status: Resolved (10) Old Myocardial Infarct Status: Resolved (11) Pneumonia Status: Resolved (12) Shortness of breath Status: Resolved (13) SOB (shortness of breath) Status: Resolved Surgical Problems: (1) H/O cardiac catheterization Status: Resolved (2) H/O heart artery stent Status: Resolved (3) H/O heart bypass surgery Status: Resolved (4) Status post double vessel coronary artery bypass Status: Resolved Family History Cancer Diabetes mellitus FH ischemic heart disease Social History Smoking Status: Never Smoker Smokeless Tobacco Use: No Alcohol Use: none Drug Use: none Marital Status: in relationship Housing status: lives alone Occupational Status: employed Immunizations History of Influenza Vaccine: No History of Tetanus Vaccine?: No History of Pneumococcal: No History of Hepatitis B Vaccine: No Multi-Drug Resistant Organisms History of MDRO: No Allergies Coded Allergies: Amoxicillin (Verified Allergy, Severe, hives swelling redness lip swelling , 12/16/17) Clavulanic Acid (Verified Allergy, Severe, hypotensive shock, 12/16/17) Iodinated Diagnostic Agents (Verified Allergy, Intermediate, HIVES, ) Prednisone (Verified Allergy, Intermediate, SHORTNESS OF BREATH, 12/16/17) as per patient Home Medications Scheduled Ascorbic Acid (Ascorbic Acid), 1,000 MG PO BID B-Complex Vitamins (Vitamin B Complex), 1 TAB PO DAILY Coenzyme Q10 (Ubidecarenone) (Co Q 10), 200 MG PO DAILY Furosemide (Lasix), 40 MG PO DAILY Glipizide (Glipizide Er), 10 MG PO BID Losartan Potassium (Losartan Potassium), 25 MG PO DAILY Magnesium Chloride (Slow-Mag Tab), 2 TABS PO DAILY Metoprolol Tartrate (Lopressor) (Lopressor), 50 MG PO BID Nitroglycerin (Nitrostat), 0.4 MG UT PRN Pantoprazole (Pantoprazole Sodium), 40 MG PO BID Sucralfate (Sucralfate), 1 GM PO QID Review of Systems Constitutional: No fever, No chills, No sweats, No weight loss Respiratory: + cough, + sputum, + shortness of breath, + dyspnea on exertion, + dyspnea at rest, No hemoptysis Cardiovascular: + edema, No chest pain, No orthopnea, No PND, No palpitations Abdomen: No pain, No nausea, No vomiting, No diarrhea, No constipation Musculoskeletal: + swelling, No calf pain Genitourinary - Male: No hematuria, No dysuria, No urinary frequency Endocrine: + fatigue Physical Exam Vital Signs Date Time Temp Pulse Resp B/P (MAP) Pulse Ox O2 Delivery O2 Flow Rate FiO2 12/29/17 22:31 126/78 12/29/17 22:30 99 34 91 12/29/17 22:05 100 22 130/79 98 Room Air 12/29/17 22:05 130/79 12/29/17 22:00 100 29 94 12/29/17 21:30 100 21 12/29/17 21:22 102 12/29/17 21:13 96 Room Air 12/29/17 21:13 96 Room Air 12/29/17 21:13 110 20 127/79 96 Room Air 12/29/17 21:10 127/79 12/29/17 20:37 36.8 102 18 128/82 100 Room Air General Appearance: WD/WN, no apparent distress Head: normocephalic, atraumatic, + pertinent finding (he has rosacea on his face) ENT: hearing grossly normal, pharynx normal Neck: supple, no adenopathy, thyroid normal, no JVD, no carotid bruits, trachea midline Respiratory/Chest: no respiratory distress, no accessory muscle use, + crackles (mild bilateral lower lobe crackles) Cardiovascular: regular rate, rhythm, no murmur, normal peripheral pulses, + JVD, + pertinent finding (+ 2 edema to the knees) Abdomen/GI: normal bowel sounds, non tender, soft Back: normal inspection, no muscle spasm, normal range of motion Extremities/Musculoskelatal: no calf tenderness, normal range of motion, + pedal edema Neurologic/Psych: alert, normal mood/affect, oriented x 3 Skin: normal color, warm/dry, no rash Diagnostics Laboratory Results Results Past 24 Hours Test 12/29/17 20:50 12/29/17 21:15 Range/Units White Blood Count 13.29 4.8-10.8 K/uL Red Blood Count 3.76 4.7-6.1 M/uL Hemoglobin 11.3 14.0-18.0 g/dL Hematocrit 33.0 42-52 % Mean Corpuscular Volume 87.8 80-100 fL Mean Corpuscular Hemoglobin 30.1 25-34 pg Mean Corpuscular Hemoglobin Concent 34.2 32-36 g/dl Platelet Count 268 130-400 K/uL Mean Platelet Volume 11.9 7.4-10.4 fL Neutrophils (%) (Auto) 89.4 % Lymphocytes (%) (Auto) 3.7 % Monocytes (%) (Auto) 6.4 % Eosinophils (%) (Auto) 0.0 % Basophils (%) (Auto) 0.1 % Neutrophils # (Auto) 11.89 1.4-6.5 K/uL Lymphocytes # (Auto) 0.49 1.2-3.4 K/uL Monocytes # (Auto) 0.85 0.11-0.59 K/uL Eosinophils # (Auto) 0.00 0-0.5 K/uL Basophils # (Auto) 0.01 0-0.2 K/uL RDW Standard Deviation 44.2 36.4-46.3 fL RDW Coefficient of Variation 14.0 11.5-14.5 % Immature Granulocyte % (Auto) 0.4 % Immature Granulocyte # (Auto) 0.05 0.00-0.02 K/uL Sodium Level 128 136-145 mmol/L Potassium Level 3.9 3.5-5.1 mmol/L Chloride Level 87 98-107 mmol/L Carbon Dioxide Level 29 21-32 mmol/L Anion Gap 11.0 3-11 mmol/L Blood Urea Nitrogen 46 7-18 mg/dl Creatinine 1.77 0.60-1.40 mg/dl Est Creatinine Clear Calc Drug Dose 42.4 ml/min Estimated GFR () 45.4 Estimated GFR (Non- 39.2 BUN/Creatinine Ratio 25.7 10-20 Random Glucose 439 70-99 mg/dl Calcium Level 8.8 8.5-10.1 mg/dl Total Bilirubin 0.8 0.2-1 mg/dl Direct Bilirubin 0.3 0-0.2 mg/dl Aspartate Amino Transf (AST/SGOT) 25 15-37 U/L Alanine Aminotransferase (ALT/SGPT) 43 12-78 U/L Alkaline Phosphatase 99 45-117 U/L Total Creatine Kinase 61 39-308 U/L Creatine Kinase MB 1.8 0.5-3.6 ng/ml Creatine Kinase MB Ratio 3.0 0-3.0 Troponin I 0.173 0-0.045 ng/ml Pro-B-Type Natriuretic Peptide 21857 0-900 pg/ml Total Protein 6.9 6.4-8.2 gm/dl Albumin 3.0 3.4-5.0 gm/dl Lipase 656 73-393 U/L Beta-Hydroxybutyric Acid 16.60 0.2-2.81 mg/dL Influenza Type A Antigen Neg for Influ A NEG Influenza Type B Antigen Neg for Influ B NEG Microbiology Results 12/29/17 Blood Culture, Received Pending 12/29/17 Blood Culture, Received Pending Diagnostic Radiology CXR Left basilar consolidation may represent pneumonia, aspiration, or extensive atelectasis in the setting of left pleural effusion. This is worsened from prior. EKG T-wave inversion (Lateral), other (Old Anterior Infarct ) Impression Assessment and Plan 67 year old male with a PMH of Diastolic CHF, DM, Afib, HLD, HTN and esophageal ulcers here with worsening shortness of breath and difficulty swallowing Acute on chronic systolic and diastolic CHF - echo on 12/18 with EF of 25-30% w/ grade 2 DD - continue metoprolol 50mg bid - continue losartan and continue atorvastatin - trop stable since last admission Sepsis secondary to HAP - CXR with left lower lobe consolidation - recently finished course of levaquin during last admission - Started on IV cefepime, levaquin and vanc - blood cultures and sputum cultures ordered - procalcitonin and lactic acid ordered Anemia secondary to Esophageal ulcers - recently bleeding leading to unstable vitals at last admission, EGD showed esophageal ulcers - continue protonix 40mg po bid and carafate - plan for outpatient follow up in 2 week to obtain biopsies and re-eval ulcer - currently having difficulty swallowing, likely secondary to ulcers vs traumatic intubation - speech and swallow eval ordered - GI consult ordered Paroxysmal Atrial Fibrillation - currently in NSR - continue metoprolol - hold off on anticoagulation due to recent GI bleed, refused anticoagulation in the past DMT2 - hold glipizide - ISS with accuchecks ac/hs - HbA1c is 7 at last admission CKD stage II-III, - baseline 1.1-1.2 - creatinine 1.7 - continue to monitor bmp Insomnia - uses melatonin at home, will give him ambien 5mg qhs CODE STATUS: FULL DVT ppx: scds, ambulatory, no chemical anticoagulation with GI bleed Attending addendum: I have physically seen this patient, have supervised the medical residents activities, and agree with the H&P unless as otherwise noted. Assessment and Plan: Acute on chronic systolic and diastolic CHF-- The patient will be admitted to telemetry for serial cardiac enzymes, serial EKG's, cardiac rhythm monitoring. Continue metoprolol and losartan. Left lower lobe pneumonia-- Vancomycin IV per pharmacokinetic monitoring Cefepime 1 g IV every 12 hours Levofloxacin 500 mg IV every 24 hours Duonebs every 4 hours while awake and every 2 hours when necessary. Nasal cannula oxygen titrate to keep pulse ox greater than or equal to 92% Sputum Gram stain and culture. Esophageal ulcers with bleeding during last admission requiring 3 units PRBCs-- Was to have repeat EGD in 2 weeks. He has symptomatic dysphagia at this time. He will be n.p.o. except essential medications. Consult gastroenterology. Diabetes mellitus-- Hold glipizide Placed on Accu-Cheks before meals and at bedtime with NovoLog coverage per scale Level of Care Med/Surg Advanced Directives Existing Advance Directive: No Existing Living Will: No Existing Power of Plastics Repairer: No Resuscitation Status FULL RESUSCITATION VTE Prophylaxis VTE Risk Assessment Done? Y/N: Yes Risk Level: Moderate Given or contraindicated: SCD's Social Service Consult None Apply
[2017-12-30] MEDS ORDERED: VANCOMYCIN INJ 2,000 MG in SODIUM CHLORIDE 0.9% 500ML 500 ML IV SCH ×2
[2017-12-30] MEDS ORDERED: NITROGLYCERIN 0.4 MG SL PER TAB CHARGE UT SCH
[2017-12-30 00:30] VITALS: BP 106/67; PULSE 98; TEMP 36.6; O2SAT 92; BMI 27.6
[2017-12-30] MEDS ORDERED: DEXTROSE 50% 50 ML SYR IV PRN (01:30)
[2017-12-30] MEDS ORDERED: LEVOFLOXACIN CONSULT ACTIVE PRN (01:30)
[2017-12-30] MEDS ORDERED: GLUCOSE 40% GEL 15 GM TUBE PO PRN (01:30)
[2017-12-30] MEDS ORDERED: GLUCAGON FOR INJ 1 MG VIAL SQ PRN (01:30)
[2017-12-30] MEDS ORDERED: GLUCOSE 10 TABS/TUBE PO PRN (01:30)
[2017-12-30] MEDS ORDERED: ALBUMIN 5% 250 ML with FUROSEMIDE INJ 40 MG IV ONE ×2 (01:30)
[2017-12-30] MEDS ORDERED: CEFEPIME CONSULT ACTIVE PRN (02:00)
[2017-12-30] MEDS: CEFEPIME IV 2,000 MG in SYRINGE 7.5 ML IV SCH ×2 (02:14→14:03)
[2017-12-30] MEDS ORDERED: ALBUMIN 25% 50 ML with FUROSEMIDE INJ 40 MG IV SCH ×2 (03:30)
[2017-12-30 04:04] VITALS: BP 96/59; PULSE 85; TEMP 36.6; O2SAT 96
[2017-12-30 04:53] VITALS: BP 112/72; PULSE 89; TEMP 36.4; O2SAT 91
[2017-12-30] MEDS ORDERED: CEFEPIME IV 2,000 MG in DEXTROSE 5% 100ML 100 ML IV SCH (06:00)
[2017-12-30 06:07] LABS: BASO % 0.1 %; BASO ABS # 0.01 K/uL (0-0.2); HEMATOCRIT 30.9 % (42-52); HEMOGLOBIN 10.3 g/dL (14.0-18.0); IG# 0.04 K/uL (0.00-0.02); LYMPH % 11.4 %; LYMPH ABS # 1.38 K/uL (1.2-3.4); MEAN CORPUSCULAR HGB CONC 33.3 g/dl (32-36); MEAN PLATELET VOLUME 11.3 fL (7.4-10.4); MONO % 9.1 %; NEUT % 79.1 %; NEUT ABS # 9.55 K/uL (1.4-6.5); PLATELET COUNT 211 K/uL (130-400); RED CELL DISTRIBUTION WIDTH SD 44.3 fL (36.4-46.3); WHITE BLOOD COUNT 12.08 K/uL (4.8-10.8)
--- NOTE | 2017-12-30 06:10 | DIAGNOSTIC IMAGING REPORT ---
(CHEST) THORAX WITHOUT CT DOSE: 487.64 mGy.cm HISTORY: Pain. Edema. Pain TECHNIQUE: Multiaxial CT images of the chest were performed without contrast. A dose lowering technique was utilized adhering to the principles of ALARA. COMPARISON: 06/01/2015 FINDINGS: Large substernal thyroid. Small bilateral pleural effusions. Minimal bibasilar atelectatic change. Prior median sternotomy. Mild cardiomegaly. Pulmonary apices are clear. Several mediastinal and/or hilar nodes unchanged in the prior exam and considered reactive. IMPRESSION: Bilateral pleural effusions. Mild cardiomegaly. Mild bibasilar atelectasis. The above report was generated using voice recognition software. It may contain grammatical, syntax or spelling errors. Electronically signed by: Michael Dang M.D. 12/30/2017 6:08 AM Dictated Date/Time: 12/30/2017 6:06 AM
[2017-12-30 06:49] LABS: ALBUMIN 2.6 gm/dl (3.4-5.0); CALCIUM 8.2 mg/dl (8.5-10.1); CREATININE 1.46 mg/dl (0.60-1.40); POTASSIUM 3.3 mmol/L (3.5-5.1); TOTAL PROTEIN 6.2 gm/dl (6.4-8.2)
[2017-12-30 07:10] VITALS: BP 116/70; PULSE 93; TEMP 36.4; O2SAT 95
[2017-12-30] MEDS ORDERED: POTASSIUM CHLORIDE 10 MEQ TABCR PO STA (07:25)
[2017-12-30] MEDS: PANTOprazole SOD 40 MG TAB PO SCH ×2 (08:05→21:06)
[2017-12-30] MEDS: SUCRALFATE 1 GM/10 ML UDC PO SCH ×4 (08:06→21:06)
[2017-12-30] MEDS ORDERED: FUROSEMIDE INJ 40 MG in SYRINGE 0 ML IV ONE (09:00)
[2017-12-30] MEDS: INSULIN ASPART 100 UNITS/ML 3 ML PEN SC SCH ×5 (10:01→23:54)
[2017-12-30] MEDS: LOSARTAN POTASSIUM 25 MG TAB PO SCH (10:01)
[2017-12-30] MEDS: METOPROLOL TARTRATE 50 MG TAB PO SCH ×2 (10:02→21:00)
[2017-12-30] MEDS: MAGNESIUM CHLORIDE 64MG DELAYED REL TAB PO SCH (10:02)
--- NOTE | 2017-12-30 11:00 | Pharmacy Progress Note ---
Pharmacy Abx Dose Short Note Date of Service Dec 30, 2017. Assessment & Plan Item Value Date Time Creatinine 1.46 mg/dl H # 12/30/17 0555 Est Creatinine Clear Calc Drug Dose 51.4 ml/min 12/30/17 0555 Creatinine 1.77 mg/dl H 12/29/172049 Est Creatinine Clear Calc Drug Dose 42.4 ml/min 12/29/172049 Assessment 67 year old male receiving VANC/Cefepime/LVQ for treatment of HAP/sepsis Day # 1 of antimicrobial therapy. Pertinent PMH: Recent hospital stay (12/17/17 with antibiotic, CKD 2-3 Plan Vancomycin * Est Ke~0.0459hr-1, T1/2~16h * LOADING DOSE: Vanc 2000mg (~23mg/kg) * MAINTENANCE DOSE: Vanc 1250mg (~15mg/kg) IV q18h * Goal trough level: 15 to 20 mcg/mL * VANC trough @ Css prior to 01/01 0400 dose Cefepime: 2 grams IV every 12 hours (target dose 2 grams IV q 8-12 hours) LVQ: 750mg IV every 24 hours (ordered x 3 days only). Pharmacy will continue to follow and will adjust dose/frequency as necessary. Thank you.
[2017-12-30 11:43] VITALS: Ht 177.8 cm; Wt 84.5 kg
[2017-12-30] MEDS ORDERED: POTASSIUM CHLORIDE 20 MEQ TABCR PO ONE (12:00)
[2017-12-30] MEDS: ONDANSETRON INJ 2 MG/ML 2 ML VIAL IV PRN ×2 (12:29→19:12)
--- NOTE | 2017-12-30 14:07 | GASTROINTESTINAL CONSULTATION ---
DATE OF CONSULTATION: 12/30/2017 CHIEF COMPLAINT: Shortness of breath. HISTORY OF PRESENT ILLNESS: The patient is a 67-year-old male with long history of congestive heart failure who presented to the hospital yesterday evening for progressive shortness of breath. The patient does have a long history of congestive heart failure and had a recent hospital admission for similar symptoms. The patient now notes that he has been having difficulty swallowing, which has been progressing over the last 1 week. He describes having swallowing difficulty with food such as meat, breads and vegetable matter. He did have a recent upper endoscopy after he presented last month with evidence of gastrointestinal bleeding. During the upper endoscopy which was performed on the 17 of December, he was found to have large esophageal ulcers which were thought to be related to pill-induced esophagitis. The patient states that since being on the proton pump inhibitor, he has not noticed much benefit. PAST MEDICAL HISTORY: 1. Atrial fibrillation. 2. Congestive heart failure. 3. Diabetes. 4. Hypercholesterolemia. 5. Hypertension. 6. Esophageal ulcers. PAST SURGICAL HISTORY: 1. Cardiac catheterization. 2. Cardiac bypass. OUTPATIENT MEDICATIONS: 1. Vitamin C 1000 mg twice daily. 2. B complex 1 tablet daily. 3. Coenzyme Q10 200 mg daily. 4. Lasix 40 mg daily. 5. Glipizide 10 mg twice daily. 6. Losartan 25 mg daily. 7. Magnesium chloride 2 tablets daily. 8. Nitroglycerin 0.4 mg p.r.n. 9. Protonix 40 mg twice daily. 10. Carafate 1 gram q.i.d. ALLERGIES: AMOXICILLIN, CLAVULANIC ACID, IODINE CONTRAST, AND PREDNISONE. SOCIAL HISTORY: The patient is a nonsmoker. The patient denies alcohol use or drug use. The patient lives at home by himself. FAMILY HISTORY: Diabetes in his parents, heart disease in his parents. No history of esophageal or gastric cancer. REVIEW OF SYSTEMS: CONSTITUTIONAL: No fevers, no chills. RESPIRATORY: The patient with shortness of breath and coughing, worse with exertion. CARDIOVASCULAR: The patient with lower extremity swelling, no chest pain. GASTROINTESTINAL: Please see history of present illness. MUSCULOSKELETAL: The patient with lower extremity swelling. GENITOURINARY: No dysuria noted. ENDOCRINE: The patient with fatigue. No polydipsia, polyphagia. ENT: The patient with difficulty swallowing. PSYCHIATRIC: No depression. No suicidal ideation. DERM: No rashes. No itching noted by patient. NEUROLOGIC: No headache. No double vision noted. PHYSICAL EXAMINATION: VITAL SIGNS: Temperature 36.4, pulse 93, respiratory rate 17, blood pressure is 116/70. HEENT: No scleral icterus noted. NECK: Minimal JVD noted. LUNGS: The patient with basilar crackles. CARDIAC: Irregular rhythm, systolic murmur heard. Distant heart sounds. EXTREMITIES: 2+ pitting edema bilaterally. NEUROLOGIC: Cranial nerves grossly intact. Motor grossly intact. LABORATORIES: White blood cell count is 12, hemoglobin 10, hematocrit 30.9, platelet count 211. Sodium 129, potassium is 3.3, chloride is 91, BUN 44, creatinine 1.46. AST 23, ALT 40, alkaline phosphatase 87, lipase 625. ProBNP OVER 24k Troponin 0.173. IMPRESSION: A 67-year-old male with a history of congestive heart failure and renal insufficiency, presenting for shortness of breath. He does have additional symptoms of solid food dysphagia which could represent his prior esophageal ulcerations, stricturing or perhaps even mass. We could then proceed with upper endoscopy once the patient is stable from the standpoint of his congestive heart failure. RECOMMENDATIONS: 1. Continue Protonix twice a day. 2. Liquid diet. 3. Upper endoscopy once clinically stable. Please call with any questions or concerns. TRAE
[2017-12-30] MEDS ORDERED: POTASSIUM CHLORIDE 20 MEQ/15 ML UDC PO STA (14:37)
[2017-12-30 15:07] VITALS: BP 100/63; PULSE 82; TEMP 36.5; O2SAT 95
[2017-12-30] MEDS ORDERED: ONDANSETRON INJ 2 MG/ML 2 ML VIAL IV STA (15:41)
[2017-12-30] MEDS ORDERED: NURSING VERBAL MED ORDER ONE (15:45)
[2017-12-30] MEDS: VANCOMYCIN INJ 1,250 MG in SODIUM CHLORIDE 0.9% 250ML 250 ML IV SCH (16:41)
[2017-12-30 17:39] LABS: INFLUENZA A PCR Neg for Influ A (NEG); INFLUENZA B PCR Neg for Influ B (NEG)
[2017-12-30] MEDS: BOOST GLUCOSE CONTROL PO SCH (17:45)
[2017-12-30 19:08] LABS: POTASSIUM 4.3 mmol/L (3.5-5.1)
[2017-12-30] MEDS: INSULIN GLARGINE SOLOSTAR 100 UNITS/ML 3 ML PEN SC SCH (21:13)
[2017-12-30] MEDS: LEVOFLOXACIN / D5W 750 MG in PREMIXED IN D5W 150 ML IV SCH (21:21)
[2017-12-30] MEDS ORDERED: LEVOFLOXACIN / D5W 750 MG in PREMIXED IN D5W 150 ML IV SCH (22:00)
[2017-12-30 23:04] VITALS: BP 124/76; PULSE 95; TEMP 36.6; O2SAT 98
[2017-12-30] MEDS ORDERED: NURSING DECISION MEDICATION ORDER SCH (23:30)
--- NOTE | 2017-12-30 23:51 | Progress Note ---
Subjective Date of Service: Dec 30, 2017. Subjective Pt evaluation today including: conversation w/ patient, conversation w/ family ( at bedside ), physical exam, chart review, lab review, review of studies ( CT chest), review of inpatient medication list Pain: dysphagia PO Intake: poor for several days Voiding: no voiding problems pt reports significant dyspnea and weight gain after his recent hospital stay received outpatient IV lasix multiple times this past week at the CHF clinic through [employer] [employer] despite such he has been very fatigued, has had "no appetite", and overall has felt very poorly Problem List Medical Problems: (1) Abscess of right foot including toes Status: Acute (2) Acute chest pain Status: Acute (3) DANIEL (acute kidney injury) Status: Acute (4) Cellulitis Status: Acute (5) CHF exacerbation Status: Acute (6) Dehydration Status: Acute (7) Diabetic foot infection Status: Acute (8) Elevated troponin Status: Acute (9) Leukocytosis Status: Acute (10) Lymphangitis, acute, lower leg Status: Acute (11) Sepsis Status: Acute Review of Systems Constitutional: + chills, + fatigue, No fever Respiratory: + cough, + dyspnea on exertion, No sputum Cardiac: + edema, No chest pain, No orthopnea Abdomen: + nausea, No pain Objective Vital Signs Date Time Temp Pulse Resp B/P (MAP) Pulse Ox O2 Delivery O2 Flow Rate FiO2 12/30/17 15:07 36.5 82 18 100/63 (75) 95 Room Air 12/30/17 08:05 Room Air 12/30/17 07:10 36.4 93 17 116/70 (85) 95 Room Air 12/30/17 04:53 36.4 89 16 112/72 (85) 91 Room Air 12/30/17 04:04 36.6 85 16 96/59 (71) 96 Room Air 12/30/17 00:30 Room Air 12/30/17 00:30 Room Air 12/30/17 00:30 36.6 98 18 106/67 (80) 92 Room Air 12/30/17 00:20 36.8 99 34 126/78 93 12/29/17 22:31 126/78 12/29/17 22:30 99 34 91 12/29/17 22:05 100 22 130/79 98 Room Air 12/29/17 22:05 130/79 12/29/17 22:00 100 29 94 12/29/17 21:30 100 21 12/29/17 21:22 102 12/29/17 21:13 96 Room Air 12/29/17 21:13 96 Room Air 12/29/17 21:13 110 20 127/79 96 Room Air 12/29/17 21:10 127/79 12/29/17 20:37 36.8 102 18 128/82 100 Room Air Physical Exam General Appearance: no apparent distress ENT: pharynx normal Neck: + JVD Respiratory/Chest: no respiratory distress, no accessory muscle use, + rales ( bases) Cardiovascular: regular rate, rhythm, no gallop, + systolic murmur Abdomen: normal bowel sounds, non tender, soft, no organomegaly Extremities: no pedal edema Neurologic/Psychiatric: alert, oriented x 3 Laboratory Results Last 24 Hours Test 12/29/17 20:50 12/29/17 21:15 12/30/17 00:32 12/30/17 01:18 White Blood Count 13.29 K/uL Red Blood Count 3.76 M/uL Hemoglobin 11.3 g/dL Hematocrit 33.0 % Mean Corpuscular Volume 87.8 fL Mean Corpuscular Hemoglobin 30.1 pg Mean Corpuscular Hemoglobin Concent 34.2 g/dl Platelet Count 268 K/uL Mean Platelet Volume 11.9 fL Neutrophils (%) (Auto) 89.4 % Lymphocytes (%) (Auto) 3.7 % Monocytes (%) (Auto) 6.4 % Eosinophils (%) (Auto) 0.0 % Basophils (%) (Auto) 0.1 % Neutrophils # (Auto) 11.89 K/uL Lymphocytes # (Auto) 0.49 K/uL Monocytes # (Auto) 0.85 K/uL Eosinophils # (Auto) 0.00 K/uL Basophils # (Auto) 0.01 K/uL RDW Standard Deviation 44.2 fL RDW Coefficient of Variation 14.0 % Immature Granulocyte % (Auto) 0.4 % Immature Granulocyte # (Auto) 0.05 K/uL Sodium Level 128 mmol/L Potassium Level 3.9 mmol/L Chloride Level 87 mmol/L Carbon Dioxide Level 29 mmol/L Anion Gap 11.0 mmol/L Blood Urea Nitrogen 46 mg/dl Creatinine 1.77 mg/dl Est Creatinine Clear Calc Drug Dose 42.4 ml/min Estimated GFR () 45.4 Estimated GFR (Non- 39.2 BUN/Creatinine Ratio 25.7 Random Glucose 439 mg/dl Calcium Level 8.8 mg/dl Total Bilirubin 0.8 mg/dl Direct Bilirubin 0.3 mg/dl Aspartate Amino Transf (AST/SGOT) 25 U/L Alanine Aminotransferase (ALT/SGPT) 43 U/L Alkaline Phosphatase 99 U/L Total Creatine Kinase 61 U/L Creatine Kinase MB 1.8 ng/ml Creatine Kinase MB Ratio 3.0 Troponin I 0.173 ng/ml Pro-B-Type Natriuretic Peptide 14531 pg/ml Total Protein 6.9 gm/dl Albumin 3.0 gm/dl Lipase 656 U/L Beta-Hydroxybutyric Acid 16.60 mg/dL Influenza Type A Antigen Neg for Influ A Influenza Type B Antigen Neg for Influ B Bedside Glucose 401 mg/dl Lactic Acid Level 3.6 mmol/L Procalcitonin < 0.05 ng/ml Test 12/30/17 02:59 12/30/17 05:55 12/30/17 08:05 12/30/17 12:20 Bedside Glucose 265 mg/dl 198 mg/dl 233 mg/dl White Blood Count 12.08 K/uL Red Blood Count 3.55 M/uL Hemoglobin 10.3 g/dL Hematocrit 30.9 % Mean Corpuscular Volume 87.0 fL Mean Corpuscular Hemoglobin 29.0 pg Mean Corpuscular Hemoglobin Concent 33.3 g/dl Platelet Count 211 K/uL Mean Platelet Volume 11.3 fL Neutrophils (%) (Auto) 79.1 % Lymphocytes (%) (Auto) 11.4 % Monocytes (%) (Auto) 9.1 % Eosinophils (%) (Auto) 0.0 % Basophils (%) (Auto) 0.1 % Neutrophils # (Auto) 9.55 K/uL Lymphocytes # (Auto) 1.38 K/uL Monocytes # (Auto) 1.10 K/uL Eosinophils # (Auto) 0.00 K/uL Basophils # (Auto) 0.01 K/uL RDW Standard Deviation 44.3 fL RDW Coefficient of Variation 14.0 % Immature Granulocyte % (Auto) 0.3 % Immature Granulocyte # (Auto) 0.04 K/uL Sodium Level 129 mmol/L Potassium Level 3.3 mmol/L Chloride Level 91 mmol/L Carbon Dioxide Level 30 mmol/L Anion Gap 8.0 mmol/L Blood Urea Nitrogen 44 mg/dl Creatinine 1.46 mg/dl Est Creatinine Clear Calc Drug Dose 51.4 ml/min Estimated GFR () 57.3 Estimated GFR (Non- 49.4 BUN/Creatinine Ratio 30.4 Random Glucose 212 mg/dl Calcium Level 8.2 mg/dl Magnesium Level 2.2 mg/dl Total Bilirubin 0.5 mg/dl Aspartate Amino Transf (AST/SGOT) 23 U/L Alanine Aminotransferase (ALT/SGPT) 40 U/L Alkaline Phosphatase 87 U/L Troponin I 0.197 ng/ml Total Protein 6.2 gm/dl Albumin 2.6 gm/dl Globulin 3.6 gm/dl Albumin/Globulin Ratio 0.7 Lipase 625 U/L Test 12/30/17 16:50 12/30/17 17:37 12/30/17 18:25 Influenza Type A (RT-PCR) Neg for Influ A Influenza Type B (RT-PCR) Neg for Influ B Bedside Glucose 230 mg/dl Potassium Level 4.3 mmol/L Troponin I 0.166 ng/ml Assessment and Plan 67yo male with: 1. b/l pneumonia - was recently treated for pneumonia during his previous admission. Despite such he continues with pneumonia symptoms including lack of appetite, fatigue, cough, etc. He has been placed on triple antibiotic coverage by the admitting MD including cefepime, levaquin, and vancomycin. Continue all 3 for now, but consider narrowing. Certainly at risk of gram negatives due to frequent healthcare exposure, etc. 2. acute/chronic systolic/diastolic CHF - s/p lasix yesterday and this AM. Follow UOP, daily weight, BMPs, etc Pt reports dry weight is about 175 pounds; today he is about 186 pounds. 3. uncontrolled T2DM - add lantus at HS tonight 4. h/o a. fib - noted. 5. recent upper GI bleeding 2nd to multiple esophageal ulcers - noted. Appreciate GI consultation. Due to ongoing symptoms may need repeat EGD. Cont PPI, carafate in meantime. 6. acute kidney injury - likely due to acute/chronic CHF. Creatinine already improved. 7. hypokalemia - replace, repeat K in AM. 8. hyponatremia - partially pseudohyponatremia from high glucose and partially from diuretic usage. Repeat BMP in am. 9. positive troponin - although patient has known CAD I don't believe he has had an ACS. Troponin is actually lower than during the previous admission. Likely myocardial demand ischemia in setting of #1 above. 10. DVT proph - SCDs for now; chemical means contraindicated due to recent GI bleeding requiring ICU admission. updated In my clinical judgment this beneficiary meets acute admission criteria, established by CMS, that includes being hospitalized through two midnights. Thus, changed to full admission status today. Continued [facility] stay due to: multiple IV medications needed Discharge planning: home
[2017-12-31] MEDS: CEFEPIME IV 2,000 MG in SYRINGE 7.5 ML IV SCH ×2 (03:01→14:14)
[2017-12-31] MEDS: INSULIN ASPART 100 UNITS/ML 3 ML PEN SC SCH ×4 (06:00→22:01)
[2017-12-31 07:40] VITALS: O2SAT 93
[2017-12-31] MEDS: BOOST GLUCOSE CONTROL PO SCH ×3 (07:47→17:28)
[2017-12-31 08:05] VITALS: BP 132/78; PULSE 92; TEMP 36.6; O2SAT 93
--- NOTE | 2017-12-31 08:33 | Clinical Documentation Query ---
.CLINICAL DOCUMENTATION QUERY A 67 year old male with a PMH of Diastolic CHF, DMT2, Afib, HLD, and HTN that has presented to [facility] due to worsening shortness of breath as well as difficulty swallowing. Troponins 0.166 to 0.197. EKG demonstrates T wave abnormality with criteria for anterior infarct. In your clinical opinion is this patient being managed for: ( ) Myocardial infarction type 2 due to demand ischemia ( ) Not Agree ( ) Other explanation of clinical findings (Please Explain) ( ) Unable to determine (Please Define) ( ) Need to Discuss The medical record reflects the following clinical findings, treatment, and risk factors. Clinical Indicators: As above, SOB, pneumonia Treatment: Serial troponins Risk Factors: Chronic diastolic CHF, pneumonia DM, HTN Please clarify and document your clinical opinion in the progress notes and discharge summary. Terms such as "probable", "suspected", "likely", "questionable", "possible", or "still to be ruled out" are acceptable. IF IN AGREEMENT, YOU MUST DOCUMENT ABOVE DIAGNOSTIC STATEMENT IN DAILY PROGRESS NOTES AND DISCHARGE SUMMARY. This document is not part of the patient's record. Thank You, Oralia Carrion RN [phone]
[2017-12-31 08:53] VITALS: O2SAT 93
[2017-12-31] MEDS: LOSARTAN POTASSIUM 25 MG TAB PO SCH (09:00)
[2017-12-31] MEDS: SUCRALFATE 1 GM/10 ML UDC PO SCH ×4 (09:00→21:56)
[2017-12-31] MEDS: METOPROLOL TARTRATE 50 MG TAB PO SCH ×2 (09:00→21:57)
[2017-12-31] MEDS: PANTOprazole SOD 40 MG TAB PO SCH ×2 (09:00→21:57)
[2017-12-31] MEDS: MAGNESIUM CHLORIDE 64MG DELAYED REL TAB PO SCH (09:00)
[2017-12-31] MEDS: VANCOMYCIN INJ 1,250 MG in SODIUM CHLORIDE 0.9% 250ML 250 ML IV SCH (09:22)
[2017-12-31 09:52] LABS: HEMATOCRIT 32.7 % (42-52); MEAN CELL VOLUME 87.4 fL (80-100); MEAN CORPUSCULAR HEMOGLOBIN 29.4 pg (25-34); MEAN CORPUSCULAR HGB CONC 33.6 g/dl (32-36); MEAN PLATELET VOLUME 11.3 fL (7.4-10.4); PLATELET COUNT 234 K/uL (130-400); RED CELL DISTRIBUTION WIDTH CV 14.3 % (11.5-14.5); RED CELL DISTRIBUTION WIDTH SD 44.6 fL (36.4-46.3); WHITE BLOOD COUNT 13.25 K/uL (4.8-10.8)
[2017-12-31 10:17] LABS: CALCIUM 8.7 mg/dl (8.5-10.1); CREATININE 1.5 mg/dl (0.60-1.40); POTASSIUM 3.7 mmol/L (3.5-5.1)
[2017-12-31] MEDS ORDERED: PROPOFOL IV EMULSION 10 MG/ML 20 ML VIAL IV ONE (11:30)
[2017-12-31] MEDS ORDERED: LIDOCAINE HCL 2% 2 ML VIAL (20MG/ML) ONE (11:30)
[2017-12-31] MEDS ORDERED: FENTANYL CITRATE INJ 50 MCG/1 ML 2 ML VIAL ONE (11:36)
[2017-12-31] MEDS ORDERED: MIDAZOLAM HCL 1 MG/ML 2ML VIAL ONE (11:38)
--- NOTE | 2017-12-31 11:48 | Progress Note ---
Progress Note Date of Service Dec 31, 2017. Progress Note 67 yo presenting for intolerance to PO after recent EGD on 12/17 for hematemesis and esophageal ulcers. Plan for EGD today
[2017-12-31] MEDS ORDERED: FUROSEMIDE INJ 40 MG in SYRINGE 0 ML IV ONE (12:00)
--- NOTE | 2017-12-31 12:26 | GI REPORT ---
Procedure Date: 12/31/2017 11:40 AM Procedure: Upper GI endoscopy Indications: Dysphagia, Regurgitation, Prior EGD on December 17 2017 for hematemesis with large deep esophageal ulcers. Placed on BID PPI and Carafate. Medicines: Monitored Anesthesia Care Complications: No immediate complications. Estimated blood loss: None. Estimated Blood Loss: Estimated blood loss: none. Procedure: Pre-Anesthesia Assessment: - Pre-Anesthesia Assessment: - Prior to the procedure, a History and Physical was performed, and patient medications, allergies and sensitivities were reviewed. The patient's tolerance of previous anesthesia was reviewed. Please see [email or web address] for complete details. - The risks and benefits of the procedure and the sedation options and risks were discussed with the patient. All questions were answered and informed consent was obtained. - Patient identification and proposed procedure were verified prior to the procedure by the physician and the nurse. The procedure was verified in the pre-procedure area in the procedure room. After obtaining informed consent, the endoscope was passed carefully and meticuously under direct vision and only advanced when the lumen was clearly identified, C02 insuflation was utilized throughout the entirity of the procedure. Throughout the procedure, the patient's blood pressure, pulse, and oxygen saturations were monitored continuously. After obtaining informed consent, the endoscope was passed under direct vision. Throughout the procedure, the patient's blood pressure, pulse, and oxygen saturations were monitored continuously. The scope was introduced through the mouth, and advanced to the second part of duodenum. The upper GI endoscopy was accomplished without difficulty. The patient tolerated the procedure well. Findings: A hiatal hernia was present. One benign-appearing, intrinsic stenosis was found. This stenosis was moderately severe with an apparent diverticuli with fibrous band proximal to the stenosis. The stenosis was traversed. A TTS dilator was passed through the scope. Dilation with a 12-13.5-15 mm balloon dilator was performed to 15 mm. The dilation site was examined and showed An appropriate, non complicated mucosal disruption was identified. 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 The entire examined stomach was normal. The examined duodenum was normal. Impression: - Hiatal hernia. - Benign-appearing esophageal stenosis. Dilated. Biopsied. - Normal stomach. - Normal examined duodenum. Recommendation: - Return patient to [facility] for [facility] care. - Pureed diet today. - Await pathology results. - Repeat upper endoscopy in 1 week for retreatment, if no relief, may need endoscopic myotomy. - Continue twice daily Protonix as well as daily Carafate. Aurelio Munoz MD 12/31/2017 12:26:04 PM This report has been signed electronically. Note Initiated On: 12/31/2017 11:40 AM I attest to the content of the Intraoperative Record and orders documented therein, exceptions below
--- NOTE | 2017-12-31 12:40 | Anesthesiology Progress Note ---
Anesthesia Post Op Note Date & Time Dec 31, 2017 at 12:40 Vital Signs Pain Intensity: 0.0 Vital Signs Past 12 Hours Date Time Temp Pulse Resp B/P (MAP) Pulse Ox O2 Delivery O2 Flow Rate FiO2 12/31/17 12:36 90 18 121/80 (94) 94 Room Air 12/31/17 12:21 92 18 148/76 (100) 94 Room Air 12/31/17 11:38 36.8 95 18 124/83 (97) 94 Room Air 12/31/17 08:53 93 Room Air 12/31/17 08:05 36.6 92 16 132/78 (96) 93 Room Air 12/31/17 07:40 93 Room Air Notes Mental Status: alert / awake / arousable, participated in evaluation Pt Amnestic to Procedure: Yes Nausea / Vomiting: adequately controlled Pain: adequately controlled Airway Patency, RR, SpO2: stable & adequate BP & HR: stable & adequate Hydration State: stable & adequate Anesthetic Complications: no major complications apparent
[2017-12-31 15:28] VITALS: BP 137/79; PULSE 103; TEMP 36.6; O2SAT 92
--- NOTE | 2017-12-31 15:39 | Hospitalist Progress Note ---
Hospitalist Progress Note Date of Service Dec 31, 2017. (Felicity Rivas PA-C) Subjective Pt evaluation today including: conversation w/ patient, physical exam, chart review, lab review, review of studies, review of inpatient medication list Patient seen and evaluated. No acute events overnight. Patient states that he feels like food continues to get stuck in the esophagus and ultimately is throwing things up because of this. Continues to have no appetite. Reporting that his breathing feels at baseline and is ambulating to the bathroom without difficulty. States he feels generally fatigued due to lack of appropriate eating. Continues to have pitting edema of b/l lower extremities but states he thinks they look baseline but admits that he rarely pays attention if they are swollen. Additional Comments: General/Constitutional: + fatigue; Denies fever/chills, weakness ENT: + sensation of food stuck in esophagus; Denies visual changes, nasal drainage, hearing loss, sore throat Cardiovascular: Denies chest pain, palpitations Respiratory: Denies cough, sputum, SOB, wheezing, orthopnea GI: + nausea, + emesis; Denies abdominal pain, constipation, diarrhea, melena/ hematochezia : Denies dysuria Musculoskeletal: + b/l lower extremity swelling; Denies joint/muscle aches, weakness Neurologic: Denies dizziness/lightheadedness, numbness/tingling, weakness Hematologic/Lymphatic: Denies bleeding/clotting abnormalities Skin: Denies rash (Felicity Rivas, MADAI-C) Medications Current Inpatient Medications Medications (Trade) Dose Ordered Sig/[place] Route Start Time Stop Time Status Last Admin Dose Admin Al Hydrox/Mg Hydrox/Simethicone (Maalox Max Susp) 15 ml Q4H PRN PO 12/29/17 23:45 01/28/18 23:44 Magnesium Hydroxide (Milk Of Magnesia Susp) 30 ml Q6H PRN PO 12/29/17 23:45 01/28/18 23:44 Polyethylene (Miralax Powder Packet) 17 gm DAILY PRN PO 12/29/17 23:45 01/28/18 23:44 Ondansetron HCl (Zofran Inj) 4 mg Q6H PRN IV 12/29/17 23:45 01/28/18 23:44 12/30/17 19:12 4 MG Miscellaneous Information (Consult) 1 ea UD PRN N/A 12/29/17 23:45 01/28/18 23:44 Losartan Potassium (coZAAR TAB) 25 mg DAILY PO 12/30/17 09:00 01/29/18 08:59 12/30/17 10:01 25 MG Magnesium Chloride (Slow-Mag Tab) 128 mg DAILY PO 12/30/17 09:00 01/29/18 08:59 12/30/17 10:02 128 MG Metoprolol Tartrate (Lopressor Tab) 50 mg BID PO 12/30/17 09:00 01/29/18 08:59 12/30/17 10:02 50 MG Nitroglycerin (Nitrostat Tab) 0.4 mg PRN UT 12/30/17 00:00 01/29/18 00:00 Pantoprazole Sodium (Protonix Tab) 40 mg BID PO 12/30/17 09:00 01/29/18 08:59 12/30/17 21:06 40 MG Sucralfate (Carafate Susp) 1 gm QID PO 12/30/17 09:00 01/29/18 08:59 12/31/17 13:56 1 GM Miscellaneous (Iv Fluids Completed) 1 ea PRN PRN N/A 12/29/17 23:45 12/29/18 23:44 Glucose (Glucose 40% Gel) 15-30 GRAMS 15 GRAMS... UD PRN PO 12/30/17 01:30 01/29/18 01:29 Glucose (Glucose Chew Tab) 4-8 Tablets 4 Tabl... UD PRN PO 12/30/17 01:30 01/29/18 01:29 Dextrose (Dextrose 50% 50ML Syringe) 25-50ML OF 50% DW IV FOR... UD PRN IV 12/30/17 01:30 01/29/18 01:29 Glucagon (Glucagon Inj) 1 mg UD PRN SQ 12/30/17 01:30 01/29/18 01:29 Levofloxacin (Consult) 1 ea UD PRN N/A 12/30/17 01:30 01/29/18 01:29 Cefepime HCl 2000 mg/Syringe 20 ml @ 5 mls/min Q12H IV 12/30/17 02:00 01/06/18 01:59 12/31/17 14:14 5 MLS/MIN Levofloxacin 750 mg/Prmx 150 ml @ 100 mls/hr DAILY@2200 IV 12/30/17 22:00 12/31/17 23:59 12/30/17 21:21 100 MLS/HR Vancomycin HCl 1250 mg/Sodium Chloride 275 ml @ 125 mls/hr Q18H IV 12/30/17 16:00 01/06/18 15:59 12/31/17 09:22 125 MLS/HR Cefepime HCl (Consult) 1 ea UD PRN N/A 12/30/17 02:00 01/29/18 01:59 Enteral Nutritional Formula (Boost Glucose Control) 1 can TIDM PO 12/30/17 17:45 01/29/18 17:44 12/31/17 14:00 1 CAN Insulin Glargine (Lantus Solostar Pen) 10 units HS SC 12/30/17 21:00 01/29/18 20:59 12/30/17 21:13 10 UNITS Insulin Aspart (novoLOG ASPART) SLIDING SCALE G... Q6 SC 12/31/17 00:00 01/30/18 00:00 (Felicity Rivas PA-C) Objective Vital Signs Date Time Temp Pulse Resp B/P (MAP) Pulse Ox O2 Delivery O2 Flow Rate FiO2 12/31/17 12:51 86 18 125/77 (93) 94 Room Air 12/31/17 12:36 90 18 121/80 (94) 94 Room Air 12/31/17 12:21 92 18 148/76 (100) 94 Room Air 12/31/17 11:38 36.8 95 18 124/83 (97) 94 Room Air 12/31/17 08:53 93 Room Air 12/31/17 08:05 36.6 92 16 132/78 (96) 93 Room Air 12/31/17 07:40 93 Room Air 12/30/17 23:30 Room Air 12/30/17 23:04 36.6 95 16 124/76 (92) 98 Room Air 12/30/17 16:10 Room Air (Felicity Rivas PA-C) Physical Exam Notes: General Appearance: WDWN in NAD who is A&O x 3 HEENT: Head is normocephalic/atraumatic; Hearing grossly intact Neck: Supple; Trachea midline; Neg JVD Heart: RRR with systolic murmur Lungs: CTA in all lung santana bilaterally with minimally diminished in L base; Respirations unlabored; Neg accessory muscle use Abdomen: Soft, non-tender, non-distended; Positive BS x 4 quadrants Extremities: + 1+ b/l pitting lower extremity edema; Capillary refill < 2 seconds; Neg cyanosis Neurological: Speech clear; Neg focal neurologic deficits Psychiatric: Appropriate mood/affect Skin: Normal Color; Warm/Dry (Felicity Rivas PA-C) Laboratory Results Last 24 Hours Test 12/30/17 16:50 12/30/17 17:37 12/30/17 18:25 12/30/17 20:16 Influenza Type A (RT-PCR) Neg for Influ A Influenza Type B (RT-PCR) Neg for Influ B Bedside Glucose 230 mg/dl 240 mg/dl Potassium Level 4.3 mmol/L Troponin I 0.166 ng/ml Test 12/30/17 23:53 12/31/17 06:11 12/31/17 09:30 12/31/17 13:15 Bedside Glucose 134 mg/dl 113 mg/dl 102 mg/dl White Blood Count 13.25 K/uL Red Blood Count 3.74 M/uL Hemoglobin 11.0 g/dL Hematocrit 32.7 % Mean Corpuscular Volume 87.4 fL Mean Corpuscular Hemoglobin 29.4 pg Mean Corpuscular Hemoglobin Concent 33.6 g/dl RDW Standard Deviation 44.6 fL RDW Coefficient of Variation 14.3 % Platelet Count 234 K/uL Mean Platelet Volume 11.3 fL Sodium Level 133 mmol/L Potassium Level 3.7 mmol/L Chloride Level 95 mmol/L Carbon Dioxide Level 27 mmol/L Anion Gap 11.0 mmol/L Blood Urea Nitrogen 43 mg/dl Creatinine 1.50 mg/dl Est Creatinine Clear Calc Drug Dose 50.0 ml/min Estimated GFR () 55.4 Estimated GFR (Non- 47.8 BUN/Creatinine Ratio 28.5 Random Glucose 106 mg/dl Calcium Level 8.7 mg/dl Magnesium Level 2.4 mg/dl (Felicity Rivas PA-C) Assessment and Plan 67yo male with: Suspected B/L Pneumonia: IMPROVING - F/U imaging not largely supportive of pneumonia and coughing may be more related to his GI issues - Initially treated with Cefepime, Levaquin, and Vancomycin - will de-escalate to just Levaquin 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 175 lbs - continues to drop some weights - Will continue home Lasix 40 mg po daily - Continue I&Os and monitor kidney function DANIEL 2/2 Above: - Improving - continue to monitor with diuretic use Recent UGIB 2/2 Esophageal Ulcers: - EGD on 12/31 showing area of stenosis - GI following - appreciate recommendations Elevated Troponin: STABLE - Suspect myocardial demand ischemia due to above T2DM: Improving - On admission BSGs at 400 but improving with addition of Lantus - Lantus 10 units SC daily and SSI Paroxysmal Atrial Fibrillation: Regular Rhythm on Exam - STABLE DVT Prophylaxis: SCDs Disposition: Await diet tolerance Continued [facility] stay due to: inadequate po fluid intake Discharge planning: home (Felicity Rivas, PA-C) Attending Attestation & progress note - Pt seen/examined, chart reviewed, care plan d/w MADAI Rivas. I agree w/ the casas components of her documentation. I saw the patient post- EGD. He hadn't yet eaten. Breathing improved; denied orthopnea/dyspnea today. Still w/ fatigue. VSS no fever gen - looks better neck - mild JVD but improved heart - borderline tachy, s1, s2 lungs - decreased BS bases only; no rales or wheeze abd - soft, NT ext - no edema Cr 1.5 wbc 13 mag wnl blood cx's neg A/P: 1. dysphagia - s/p EGD - stricture/stenosis seen - s/p dilatation pureed diet today per GI recs PPI, carafate 2. acute/chronic systolic CHF - improved; another dose of IV lasix today weight is 184 pounds; baseline 175-180# 3. ?pneumonia - improving; agree w/ de-escalation of IV abx therapy; blood cx' s neg 4. leukocytosis - 2nd to #3? follow w/ cbc 5. acute kidney injury - improving 6. positive troponin - type 2 [place] / myocardial demand ischemia in setting of acute/chronic CHF & possible pneumonia - supportive care updated progressing Shine ROMAN MD (Rio Roman MD)
[2017-12-31] MEDS ORDERED: NURSING VERBAL MED ORDER ONE (17:15)
[2017-12-31 21:55] VITALS: BP 115/72; PULSE 92
[2017-12-31] MEDS: INSULIN GLARGINE SOLOSTAR 100 UNITS/ML 3 ML PEN SC SCH (22:02)
[2017-12-31] MEDS: LEVOFLOXACIN / D5W 750 MG in PREMIXED IN D5W 150 ML IV SCH (22:04)
[2017-12-31 22:56] VITALS: BP 112/71; PULSE 83; TEMP 36.6; O2SAT 97
[2018-01-01] MEDS ORDERED: VANCOMYCIN TROUGH ONE (03:30)
[2018-01-01 07:12] LABS: HEMATOCRIT 36.4 % (42-52); HEMOGLOBIN 11.7 g/dL (14.0-18.0); MEAN CELL VOLUME 89.2 fL (80-100); MEAN CORPUSCULAR HEMOGLOBIN 28.7 pg (25-34); MEAN CORPUSCULAR HGB CONC 32.1 g/dl (32-36); MEAN PLATELET VOLUME 11.8 fL (7.4-10.4); PLATELET COUNT 230 K/uL (130-400); RED CELL DISTRIBUTION WIDTH CV 14.7 % (11.5-14.5); RED CELL DISTRIBUTION WIDTH SD 46.5 fL (36.4-46.3); WHITE BLOOD COUNT 10.86 K/uL (4.8-10.8)
[2018-01-01 07:19] VITALS: BP 125/73; PULSE 82; TEMP 36.7; O2SAT 97
[2018-01-01 07:47] LABS: CALCIUM 8.5 mg/dl (8.5-10.1); CREATININE 1.52 mg/dl (0.60-1.40); POTASSIUM 3.5 mmol/L (3.5-5.1)
[2018-01-01] MEDS: BOOST GLUCOSE CONTROL PO SCH ×2 (08:30→12:30)
[2018-01-01] MEDS ORDERED: FUROSEMIDE 40 MG TAB PO SCH (09:00)
--- NOTE | 2018-01-01 09:25 | Gastroenterology Progress Note ---
Progress Note Date of Service: Jan 01, 2018 Subjective Pt evaluation today including: conversation w/ patient, physical exam, chart review, lab review, review of studies, review of inpatient medication list Mr. Cook is a 67 yr old male with a hx of A-fib, CHF, HTN, who underwent EGD in mid Nov for melena with findings of esophageal ulcers. Discharged on BID PPI and Carafate which he reports taking regularly. He was admitted again on for nausea and vomiting. EGD yesterday (01/01/18) by Dr. Munoz for nausea/vomiting with an esophageal stricture, likely sequela of the healed ulcers. Path pending. Today he is able to swallow scrambled eggs without difficulty though he tells me he has to "psych (himself) up to do it." Mild "soreness of the throat, upper chest. Review of Systems Constitutional: No fever ENT: + trouble swallowing (see HPI), No see HPI, No hearing loss, No unusual epistaxis, No nasal symptoms, No sore throat, No tinnitus, No dental problems, No pain on swallowing, No problem reported Respiratory: No see HPI, No cough, No sputum, No wheezing, No shortness of breath, No dyspnea on exertion, No dyspnea at rest, No hemoptysis, No problem reported Cardiac: + chest pain (see HPI), + edema (trace bilat ankle edema), No orthopnea, No PND Abdomen: + dysphagia (see HPI), No pain, No nausea, No vomiting, No diarrhea, No constipation, No GI bleeding Musculoskeletal: No joint pain Male : No dysuria Psych: No depression symptoms Heme: No abnormal bleeding/bruising Endo: No fatigue Skin: No rash Medications Current Inpatient Medications Medications (Trade) Dose Ordered Sig/[place] Route Start Time Stop Time Status Last Admin Dose Admin Al Hydrox/Mg Hydrox/Simethicone (Maalox Max Susp) 15 ml Q4H PRN PO 12/29/17 23:45 01/28/18 23:44 01/01/18 02:24 15 ML Magnesium Hydroxide (Milk Of Magnesia Susp) 30 ml Q6H PRN PO 12/29/17 23:45 01/28/18 23:44 Polyethylene (Miralax Powder Packet) 17 gm DAILY PRN PO 12/29/17 23:45 01/28/18 23:44 Ondansetron HCl (Zofran Inj) 4 mg Q6H PRN IV 12/29/17 23:45 01/28/18 23:44 12/30/17 19:12 4 MG Losartan Potassium (coZAAR TAB) 25 mg DAILY PO 12/30/17 09:00 01/29/18 08:59 12/30/17 10:01 25 MG Magnesium Chloride (Slow-Mag Tab) 128 mg DAILY PO 12/30/17 09:00 01/29/18 08:59 12/30/17 10:02 128 MG Metoprolol Tartrate (Lopressor Tab) 50 mg BID PO 12/30/17 09:00 01/29/18 08:59 12/31/17 21:57 50 MG Nitroglycerin (Nitrostat Tab) 0.4 mg PRN UT 12/30/17 00:00 01/29/18 00:00 Pantoprazole Sodium (Protonix Tab) 40 mg BID PO 12/30/17 09:00 01/29/18 08:59 12/31/17 21:57 40 MG Sucralfate (Carafate Susp) 1 gm QID PO 12/30/17 09:00 01/29/18 08:59 12/31/17 21:56 1 GM Miscellaneous (Iv Fluids Completed) 1 ea PRN PRN N/A 12/29/17 23:45 12/29/18 23:44 Glucose (Glucose 40% Gel) 15-30 GRAMS 15 GRAMS... UD PRN PO 12/30/17 01:30 01/29/18 01:29 Glucose (Glucose Chew Tab) 4-8 Tablets 4 Tabl... UD PRN PO 12/30/17 01:30 01/29/18 01:29 Dextrose (Dextrose 50% 50ML Syringe) 25-50ML OF 50% DW IV FOR... UD PRN IV 12/30/17 01:30 01/29/18 01:29 Glucagon (Glucagon Inj) 1 mg UD PRN SQ 12/30/17 01:30 01/29/18 01:29 Levofloxacin (Consult) 1 ea UD PRN N/A 12/30/17 01:30 01/29/18 01:29 Insulin Glargine (Lantus Solostar Pen) 10 units HS SC 12/30/17 21:00 01/29/18 20:59 12/31/17 22:02 10 UNITS Furosemide (Lasix Tab) 40 mg DAILY PO 01/01/18 09:00 01/31/18 08:59 Enteral Nutritional Formula (Boost Glucose Control) 1 can TIDM PO 12/31/17 17:45 01/29/18 17:44 Insulin Aspart (novoLOG ASPART) SLIDING SCALE G... ACHS SC 12/31/17 17:15 01/30/18 00:00 12/31/17 22:01 7 UNITS Objective Vital Signs Date Time Temp Pulse Resp B/P (MAP) Pulse Ox O2 Delivery O2 Flow Rate FiO2 01/01/18 07:19 36.7 82 16 125/73 (90) 97 Room Air 12/31/17 23:45 Room Air 12/31/17 22:56 36.6 83 16 112/71 (85) 97 Room Air 12/31/17 21:55 92 115/72 (86) 12/31/17 16:13 Room Air 12/31/17 15:28 36.6 103 18 137/79 (98) 92 Room Air 12/31/17 12:51 86 18 125/77 (93) 94 Room Air 12/31/17 12:36 90 18 121/80 (94) 94 Room Air 12/31/17 12:21 92 18 148/76 (100) 94 Room Air 12/31/17 11:38 36.8 95 18 124/83 (97) 94 Room Air Physical Exam General Appearance: no apparent distress Eyes: PERRL Neck: thyroid normal, no JVD Respiratory/Chest: lungs clear Cardiovascular: regular rate, rhythm, + pertinent finding (trace bilat ankle edema) Abdomen: non tender, soft Neurologic/Psych: alert, normal mood/affect, oriented x 3 Skin: normal color Laboratory Results Last 24 Hours Test 12/31/17 09:30 12/31/17 13:15 12/31/17 17:08 12/31/17 20:38 White Blood Count 13.25 K/uL Red Blood Count 3.74 M/uL Hemoglobin 11.0 g/dL Hematocrit 32.7 % Mean Corpuscular Volume 87.4 fL Mean Corpuscular Hemoglobin 29.4 pg Mean Corpuscular Hemoglobin Concent 33.6 g/dl RDW Standard Deviation 44.6 fL RDW Coefficient of Variation 14.3 % Platelet Count 234 K/uL Mean Platelet Volume 11.3 fL Sodium Level 133 mmol/L Potassium Level 3.7 mmol/L Chloride Level 95 mmol/L Carbon Dioxide Level 27 mmol/L Anion Gap 11.0 mmol/L Blood Urea Nitrogen 43 mg/dl Creatinine 1.50 mg/dl Est Creatinine Clear Calc Drug Dose 50.0 ml/min Estimated GFR () 55.4 Estimated GFR (Non- 47.8 BUN/Creatinine Ratio 28.5 Random Glucose 106 mg/dl Calcium Level 8.7 mg/dl Magnesium Level 2.4 mg/dl Bedside Glucose 102 mg/dl 168 mg/dl 243 mg/dl Test 01/01/18 06:51 White Blood Count 10.86 K/uL Red Blood Count 4.08 M/uL Hemoglobin 11.7 g/dL Hematocrit 36.4 % Mean Corpuscular Volume 89.2 fL Mean Corpuscular Hemoglobin 28.7 pg Mean Corpuscular Hemoglobin Concent 32.1 g/dl RDW Standard Deviation 46.5 fL RDW Coefficient of Variation 14.7 % Platelet Count 230 K/uL Mean Platelet Volume 11.8 fL Sodium Level 132 mmol/L Potassium Level 3.5 mmol/L Chloride Level 95 mmol/L Carbon Dioxide Level 30 mmol/L Anion Gap 7.0 mmol/L Blood Urea Nitrogen 40 mg/dl Creatinine 1.52 mg/dl Est Creatinine Clear Calc Drug Dose 49.4 ml/min Estimated GFR () 54.6 Estimated GFR (Non- 47.1 BUN/Creatinine Ratio 26.5 Random Glucose 83 mg/dl Calcium Level 8.5 mg/dl Assessment and Plan Mr. Cook is a 67 yr old male with esophageal dysphagia, improved after dilatation of esophageal stricture yesterday. Plan: 1. Continue soft, pureed or liquid diet w/o eating dry foods such as steak, bread until his next EGD/dilation which is planned in 2 weeks. Our GI office will call him to arrange. 2. No GI contraindication to discharge today. Would discharge on BID PPI and Carafate liquid QID.
[2018-01-01] MEDS: MAGNESIUM CHLORIDE 64MG DELAYED REL TAB PO SCH (10:26)
[2018-01-01] MEDS: SUCRALFATE 1 GM/10 ML UDC PO SCH ×2 (10:26→14:32)
[2018-01-01] MEDS: PANTOprazole SOD 40 MG TAB PO SCH (10:26)
[2018-01-01] MEDS: METOPROLOL TARTRATE 50 MG TAB PO SCH (10:26)
[2018-01-01] MEDS: LOSARTAN POTASSIUM 25 MG TAB PO SCH (10:27)
[2018-01-01] MEDS: INSULIN ASPART 100 UNITS/ML 3 ML PEN SC SCH ×2 (10:31→14:37)
[2018-01-01] MEDS ORDERED: LEVO-18 PO (13:58)
--- NOTE | 2018-01-01 14:04 | Discharge Instructions ---
Discharge Instructions Date of Service Jan 01, 2018. Admission Reason for Admission: Shortness Of Breath Discharge Discharge Diagnosis / Problem: Esophageal Stenosis Discharge Goals Goal(s): Decrease discomfort, Improve function, Increase independence Activity Recommendations Activity Limitations: resume your previous activity . Instructions / Follow-Up Instructions / Follow-Up Suspected Pneumonia: - Will complete a course of Levaquin. Take one tablet day starting today on 01/01 Congestive Heart Failure: - Continue your home lasix and continue to watch for weight gain. Recommend to weigh yourself daily and to follow a low salt diet - Will add Lasix 20 mg daily to take in the afternoon. Recommend taking Lasix 40 mg (home medication) in the morning and then take the 20 mg daily in afternoon around 5 PM daily and follow-up with heart failure clinic for any changes. Esophageal Ulcers with Stenosis (Narrowing) - The GI doctors want to do a follow-up EGD in 2 weeks and wants you to follow a soft pureed or liquid diet -- Avoid foods such as steak or breads - Any liquids would be fine. Can use steamed or well-cooked vegetables. If you eat meats would keep them grounded such as ground chicken. Soft foods like mashed potatoes, yogurt, puddings will be good just watch for too much sugar. From speech language pathologist: CHOOSE moist, soft, slippery foods; AVOID dry , doughy, pasty foods; drink warm beverages with meals; use condiments to make foods slippery. UPRIGHT for meals and for 20-30 minutes after meals. Keep head of bed elevated AT LEAST 30-degrees at ALL times--even sleep. Consider taking medications whole in a carrier, like pudding, if unable to take with whole with water Call your Primary Care doctor if any of the following symptoms or problems start or get worse: * Shortness of breath or difficulty breathing * Wake up at night short of breath * Chest pain * Cough * Swelling of your hands, feet, or legs * More fatigued or tired with your normal activity * Palpitations - sudden fast heart beats WEIGHT * Weigh yourself every morning after using the bathroom. * Use the same scale. * Wear the same amount of clothing. * Write your weight down on a chart. * Call your Primary Care doctor if you gain more than 2-3 pounds in 1-2 days. MEDICATIONS * Use this discharge instruction sheet for medication instructions. * Take your medications at the time your doctor ordered. * Do not skip a dose of your medicines. * If you miss a dose of medicine, take it as soon as possible, but DO NOT DOUBLE A DOSE. * Read your medicine information when you get home. * Know all of the side effects of your medicine. If in doubt, ask your pharmacist * Call your Primary Care doctor's office if you have any side effects. * Be sure all of your doctors know what medicine and herbs you take (including cold, flu, and herbal medicine). Take the following with you to your follow-up doctor appointments: * Weight Chart * Medication List * List of questions Do not drink excessive alcohol, beer or wine. Current Hospital Diet Patient's current hospital diet: Low Sodium Diet (2gm Na), Diabetes Type 2 Diet Discharge Diet Recommended Diet: Low Sodium Diet (2gm Na), Diabetes Type 2 Diet Diet Texture: Pureed (blended smooth) Procedures Procedures Performed: EGD with dilatation and biopsy Pending Studies Studies pending at discharge: no Laboratory Results Hemoglobin A1c Test 12/18/17 16:17 Range/Units Estimated Average Glucose 154 mg/dl Hemoglobin A1c 7.0 H 4.5-5.6 % Medical Emergencies . Who to Call and When: Call 911 or go to the Emergency Room if: * If at any time you feel your situation is an emergency * You have tightness or pain in your chest that does not go away with rest or Nitroglycerin * You are very short of breath even with rest . Non-Emergent Contact Non-Emergency issues call your: Primary Care Provider Call Non-Emergent contact if: you have a fever, your pain is concerning you, you have any medication questions . . "Provider Documentation" section prepared by Felicity Rivas. . VTE Core Measure Inpt VTE Proph given/why not?: SCD's
[2018-01-01 15:05] VITALS: BP 109/65; PULSE 83; TEMP 36.8; O2SAT 93
[2018-01-01] MEDS ORDERED: FURO-85 PO (15:43)
[2018-01-01 16:18] VITALS: BP 109/65; PULSE 83; TEMP 36.8; O2SAT 93
--- NOTE | 2018-01-01 18:28 | Discharge Summary ---
Discharge Summary Date of Service Jan 01, 2018. 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 Mixed Systolic/Diastolic CHF 2. Esophageal Stenosis 3. Esophageal Ulcers 4. T2DM 5. Paroxysmal Atrial Fibrillation Immunizations: Have You Had Influenza Vaccine: No History of Tetanus Vaccine?: No History of Pneumococcal: No History of Hepatitis B Vaccine: No Procedures: (CHEST) THORAX WITHOUT FINDINGS: Large substernal thyroid. Small bilateral pleural effusions. Minimal bibasilar atelectatic change. Prior median sternotomy. Mild cardiomegaly. Pulmonary apices are clear. Several mediastinal and/or hilar nodes unchanged in the prior exam and considered reactive. IMPRESSION: Bilateral pleural effusions. Mild cardiomegaly. Mild bibasilar atelectasis. EGD: Impression: - Hiatal hernia. - Benign-appearing esophageal stenosis. Dilated. Biopsied. - Normal stomach. - Normal examined duodenum. Consultations: 1. GI Medication Reconciliation New Medications: Furosemide (Lasix) 20 Mg Tab 20 MG PO DAILY for 14 Days, #14 TAB Take in the afternoon daily around 5 PM. This will be in addition to your Lasix in the morning. Levofloxacin (Levaquin) 750 Mg Tab 1 TAB PO DAILY for 4 Days, #4 TAB Continued Medications: Ascorbic Acid (Ascorbic Acid) 1,000 Mg Tab 1000 MG PO BID B-Complex Vitamins (Vitamin B Complex) 1 Tab Tab 1 TAB PO DAILY Coenzyme Q10 (Ubidecarenone) (Co Q 10) 100 Mg Cap 200 MG PO DAILY Furosemide (Lasix) 40 Mg Tab 40 MG PO DAILY, TAB Glipizide (Glipizide Er) 10 Mg Tab 10 MG PO BID, TAB Losartan Potassium (Losartan Potassium) 25 Mg Tab 25 MG PO DAILY Magnesium Chloride (Slow-Mag Tab) 64 Mg Tabcr 2 TABS PO DAILY, TAB Metoprolol Tartrate (Lopressor) (Lopressor) 50 Mg Tab 50 MG PO BID, TAB Nitroglycerin (Nitrostat) 0.4 Mg Sub 0.4 MG UT PRN, BTL Pantoprazole (Pantoprazole Sodium) 40 Mg Tab 40 MG PO BID for 30 Days, #60 TAB Sucralfate (Sucralfate) 1 Gm/10 Ml Susp 1 GM PO QID for 7 Days, #1 Discharge Exam ROS: General/Constitutional: Denies fever/chills ENT: Denies visual changes, nasal drainage, hearing loss, sore throat, trouble swallowing Cardiovascular: Denies chest pain, palpitations, edema Respiratory: Denies cough, sputum, SOB, wheezing, orthopnea GI: Denies nausea, vomiting, abdominal pain, constipation, diarrhea, melena/ hematochezia : Denies dysuria Musculoskeletal: Denies joint/muscle aches Neurologic: Denies dizziness/lightheadedness Hematologic/Lymphatic: Denies bleeding/clotting abnormalities Skin: Denies rash PHYSICAL EXAM General Appearance: WDWN in NAD who is A&O x 3 HEENT: Head is normocephalic/atraumatic; Hearing grossly intact; Mucous membranes moist; Pharynx negative for exudate/lesions Neck: Supple; Trachea midline; Neg JVD Heart: RRR with no M/G/R Lungs: CTA in all lung santana bilaterally; Respirations unlabored; Neg accessory muscle use Abdomen: Soft, non-tender, non-distended; Positive BS x 4 quadrants Extremities: 1-2+ pitting edema b/l legs Neurological: Speech clear; Neg focal neurologic deficits Psychiatric: Appropriate mood/affect Skin: Normal Color; Warm/Dry Hospital Course ADMISSION: Patient is a 67 year old male with a PMH of Diastolic CHF, DMT2, Afib , HLD, and HTN that has presented to [facility] due to worsening shortness of breath as well as difficulty swallowing. His shortness of breath started last Sunday after being discharged from the hospital for a GI bleed, CHF exacerbation and pneumonia last Sunday. He says the shortness of breath is worse with exertion and he has noticed it at rest. He has also noticed worsening leg swelling. He has had an associated cough with green sputum and extreme fatigue. He denies any chest pain, palpitations or worsening shortness of breath with laying flat. He has also been experiencing difficulty swallowing since being admitted last week. He says it started after being intubated for his upper GI bleed. He is able to keep down liquids but he feels that food gets stuck in his throat and then he vomits it back. This is new for him. He denies any diarrhea, constipation or GI bleeding. He also denies any abdominal pain. His EGD last week showed several large ulcerating esophageal ulcers. HOSPITAL COURSE: Mr. Cook was admitted for suspected pneumonia and esophageal stricture/stenosis. Imaging was not highly supportive of pneumonia but was treated due to recent pneumonia, leukocytosis, and symptoms. He was initially treated for HCAP but de-escalated to Levaquin to complete course. He was also diuresed during admission and reporting that dry weight is 175 lbs. He will be continued on his home Lasix 40 mg in AM and will add an additional 20 mg daily in the afternoon until F/U with CHF clinic as he has been requiring additional diuresis there. His biggest complaint was feelings of food getting stuck in the esophagus and some regurgitation. He had an EGD that showed stenosis and was dilated. He will have a F/U EGD in about 2 weeks. He will follow a soft, slippery, pureed/mechanical soft diet until then. He will continue Protonix/Carafate. He did have mildly elevated troponins that is likely demand ischemia given CHF. Total Time Spent: Greater than 30 minutes This includes examination of the patient, discharge planning, medication reconciliation, and communication with other providers. Discharge Instructions Please refer to the electronic Patient Visit Report (Discharge Instructions) for additional information. Additional Copies To Andres Landa D.O.; Aissatou Chin M.D.
== END 2018-01-01 16:40 | disposition home or self-care (01) | DRG 280 ==
LOC: C.EDB 20:32 → C.MSW 23:49 → ENRESERV 12-30 00:07 → OBSVTOIN 12-30 18:17
PROVIDERS: ADMIT Hospitalist; ATTEND Internal Medicine
PROC: 0D758ZZ Dilation of Esophagus, Via Natural or Artificial Opening Endoscopic (ICD-10-PCS; principal; 2017-12-31 11:36)
PROC: 0DB58ZX Excision of Esophagus, Via Natural or Artificial Opening Endoscopic, Diagnostic (ICD-10-PCS; principal; 2017-12-31 11:36)
DX: I13.0 Hypertensive heart and chronic kidney disease with heart failure and stage 1 through stage 4 chronic kidney disease, or unspecified chronic kidney disease (principal); I50.43 Acute on chronic combined systolic (congestive) and diastolic (congestive) heart failure; I21.A1 Myocardial infarction type 2; J18.9 Pneumonia, unspecified organism; N17.9 Acute kidney failure, unspecified; E87.1 Hypo-osmolality and hyponatremia; K22.10 Ulcer of esophagus without bleeding; Y95 Nosocomial condition; K22.2 Esophageal obstruction; T50.905A Adverse effect of unspecified drugs, medicaments and biological substances, initial encounter; D64.9 Anemia, unspecified; K44.9 Diaphragmatic hernia without obstruction or gangrene; R13.10 Dysphagia, unspecified; E87.6 Hypokalemia; E11.65 Type 2 diabetes mellitus with hyperglycemia; E11.22 Type 2 diabetes mellitus with diabetic chronic kidney disease; N18.3 Chronic kidney disease, stage 3 (moderate); I48.0 Paroxysmal atrial fibrillation; G47.00 Insomnia, unspecified; Z95.1 Presence of aortocoronary bypass graft; Z87.891 Personal history of nicotine dependence; Z79.4 Long term (current) use of insulin; Z79.899 Other long term (current) drug therapy; Z88.0 Allergy status to penicillin; Z88.8 Allergy status to other drugs, medicaments and biological substances; Z91.041 Radiographic dye allergy status

== ENCOUNTER 2018-01-04 15:00 | Inpatient (IN) | payer OTHER, BC ==
[~2018-01-04] VITALS: Ht 177.8 cm; Wt 84.3 kg
[~2018-01-04 15:00] MED LIST changes: -AMB5 PO; +FURO-85 PO; +LEVO-18 PO; -LVQ750 PO; -METO25TA56 PO
--- NOTE | 2018-01-04 15:47 | EMERGENCY ROOM VISIT NOTE ---
History Report prepared by Farrah: Fred Matthews Under the Supervision of: Dr. Bright Young M.D. First contact with patient: 15:17 Chief Complaint: SHORTNESS OF BREATH Stated Complaint: HEART FAILURE, SOB, REFERRED BY DARIUS PARRA Nursing Triage Summary: Pt reports worsening sob over the past three weeks. Hx of CHF. NPC. Denies cp. B/L LE edema. Pt states he takes 40mg Lasix twice daily, doseage increased yesterday. Pt states seen here two weeks ago, Troponin was elevated and was started on Heparin. Pt states, "I had ulcers in my esophagus and almost bled out so keep that in mind." History of Present Illness The patient is a 67 year old male who presents to the Emergency Room for evaluation of shortness of breath. Patient with known ischemic cardiomyopathy who has had 2 admission over last 2 weeks for chf issues. Notes NSTEMI for which he was on heparin and then had a GI bleed requiring emergent endoscopy. He was discharged a few days ago feeling well with minimal leg swelling. Over last few days rapid worsening leg swelling despite doubling Lasix dosing. Associated with shortness of breath and abdominal fullness. Admits his blood sugar was in 500s this morning though offers this is not significantly unusual for him. He is on oral diabetes meds but states he is on insulin while in hospitals. Denies chest pain, headache, neck pain, syncope, fevers, chills, urinary/bowel changes, nor other symptoms. No calf pain nor history of DVT/PE. Source of History: patient Onset: 3 weeks ago Position: other (global) Timing: worsening Associated Symptoms: + SOB, No chest pain Note: Patient complains of abdominal swelling, tight breathing, increased urination, and lower extremity swelling. Review of Systems See HPI for pertinent positives & negatives. A total of 10 systems reviewed and were otherwise negative. 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, right Surgical Problems: (1) H/O cardiac catheterization (2) H/O heart artery stent (3) H/O heart bypass surgery (4) Status post double vessel coronary artery bypass Family History Cancer Diabetes mellitus FH ischemic heart disease Social History Smoking Status: Former Smoker Alcohol Use: none Drug Use: none Marital Status: in relationship Housing Status: lives alone Occupation Status: employed Current/Historical Medications Scheduled Ascorbic Acid (Ascorbic Acid), 1,000 MG PO BID B-Complex Vitamins (Vitamin B Complex), 1 TAB PO QAM Coenzyme Q10 (Ubidecarenone) (Co Q 10), 200 MG PO DAILY Furosemide (Lasix), 40 MG PO BID Glipizide (Glipizide Er), 10 MG PO BID Losartan Potassium (Losartan Potassium), 25 MG PO QAM Magnesium Oxide (Mg Supplement (Magnesium), 250 MG PO QAM Metoprolol Tartrate (Lopressor) (Lopressor), 50 MG PO BID Pantoprazole (Protonix), 40 MG PO BID Spironolactone (Aldactone), 25 MG PO QAM Scheduled PRN Nitroglycerin (Nitrostat), 0.4 MG UT PRN PRN for Chest Pain Allergies Coded Allergies: Amoxicillin (Verified Allergy, Severe, hives swelling redness lip swelling , 01/04/18) Clavulanic Acid (Verified Allergy, Severe, hypotensive shock, 01/04/18) Iodinated Diagnostic Agents (Verified Allergy, Intermediate, HIVES, ) Prednisone (Verified Allergy, Intermediate, SHORTNESS OF BREATH, 01/04/18) as per patient Physical Exam Vital Signs Date Time Temp Pulse Resp B/P (MAP) Pulse Ox O2 Delivery O2 Flow Rate FiO2 01/04/18 18:30 102 20 143/88 95 Room Air 01/04/18 17:40 96 Room Air 01/04/18 17:39 98 20 143/85 99 Room Air 01/04/18 16:49 101 01/04/18 15:13 36.8 102 20 143/87 95 Room Air Physical Exam GENERAL: Patient is tired appearing and in minimal distress. HEENT: No acute trauma, normocephalic atraumatic, mucous membranes moist, no nasal congestion, no scleral icterus. NECK: No stridor, no adenopathy, no meningismus, trachea is midline. LUNGS: No dyspnea. Clear to auscultation and equal bilaterally. No wheeze, no rhonchi. Faint crackles in bilateral lower lobes. HEART: Regular rate and rhythm. No murmurs, rubs, gallops appreciated. ABDOMEN: Mild distension. Soft, nontender, bowel sounds positive, no masses appreciated, no peritonitis. BACK: No midline tenderness, no CVA tenderness EXTREMITIES: Normal motion all extremities, no cyanosis. Pitting edema in bilateral legs extending to low back NEUROLOGIC: Alert and oriented, no acute motor or sensory deficits, no focal weakness, cranial nerves grossly intact. SKIN: No rash, no jaundice, no diaphoresis. Medical Decision & Procedures ER Provider Diagnostic Interpretation: Radiology results and stated below per my review and radiologist interpretation: CHEST ONE VIEW PORTABLE CLINICAL HISTORY: 67 years-old Male presenting with SHOB. TECHNIQUE: Portable upright AP view of the chest was obtained. COMPARISON: 12/29/2017. FINDINGS: Atherosclerosis of aortic arch. Cardiac silhouette enlarged. Median sternotomy wires noted. Mildly low lung volumes with hypoventilatory changes. New bibasilar hazy opacities and small bilateral pleural effusions. Bronchial wall thickening. No pneumothorax. Osseous structures normal. IMPRESSION: 1. Interval development of hazy bibasilar opacities and small bilateral pleural effusions with bronchial wall thickening. This is most concerning for pulmonary edema in the setting of cardiomegaly. Electronically signed by: Matthew Mccabe M.D. 01/04/2018 3:56 PM Dictated Date/Time: 01/04/2018 3:55 PM Laboratory Results Test 01/04/18 15:33 Immature Granulocyte % (Auto) 0.4 % White Blood Count 11.10 K/uL (4.8-10.8) Red Blood Count 4.09 M/uL (4.7-6.1) Hemoglobin 12.1 g/dL (14.0-18.0) Hematocrit 35.8 % (42-52) Mean Corpuscular Volume 87.5 fL (80-100) Mean Corpuscular Hemoglobin 29.6 pg (25-34) Mean Corpuscular Hemoglobin Concent 33.8 g/dl (32-36) Platelet Count 227 K/uL (130-400) Mean Platelet Volume 11.7 fL (7.4-10.4) Neutrophils (%) (Auto) 83.1 % Lymphocytes (%) (Auto) 6.0 % Monocytes (%) (Auto) 9.9 % Eosinophils (%) (Auto) 0.4 % Basophils (%) (Auto) 0.2 % Neutrophils # (Auto) 9.23 K/uL (1.4-6.5) Lymphocytes # (Auto) 0.67 K/uL (1.2-3.4) Monocytes # (Auto) 1.10 K/uL (0.11-0.59) Eosinophils # (Auto) 0.04 K/uL (0-0.5) Basophils # (Auto) 0.02 K/uL (0-0.2) Immature Granulocyte # (Auto) 0.04 K/uL (0.00-0.02) Magnesium Level 2.3 mg/dl (1.8-2.4) Pro-B-Type Natriuretic Peptide 46812 pg/ml (0-900) Beta-Hydroxybutyric Acid 4.84 mg/dL (0.2-2.81) Laboratory results as reviewed by me. Medications Administered Medications (Trade) Dose Ordered Sig/[place] Route Start Time Stop Time Status Last Admin Dose Admin Furosemide (Lasix Inj) 40 mg NOW STAT IV 01/04/18 16:30 01/04/18 16:31 DC 01/04/18 16:45 40 MG Insulin Human Regular (novoLIN-R U-100 PER UNIT) 10 units NOW STAT SC 01/04/18 16:37 01/04/18 16:39 DC 01/04/18 16:52 10 UNITS ECG Per My Interpretation Indication: SOB/dyspnea Rate (beats per minute): 102 Rhythm: sinus tachycardia Findings: no acute ischemic change, no ectopy Comparison ECG Date: 12/29/2017 - atrioventricular block is similar to previous EKG Change: EKG: Electrocardiogram per my interpretation. ED Course 1517: The patient was evaluated in room A12B. A complete history and physical exam was performed. 1630: I checked on the patient and he states that he ate sherbet before coming in to the ED. He still feels short of breath. 1710: I discussed the patient's case with Dr. Sam. The patient will be evaluated for further treatment and disposition. 1730: Upon reevaluation, the patient is doing well. Discussed results and treatment plan with the patient. He verbalized understanding and agreement with the treatment plan. The patient will be evaluated for further management. Medical Decision Differential: DVT, CHF, Arterial Occlusion, Infectious, Lymphedema, Idiopathic, amongst other pathologies entertained. 67 yr old male with ischemic cardiomyopathy with 2 recent admission for ACS/CHF and upper GI bleed arrives with worsening leg swelling, shob, and fatigue despite BID 40mg Lasix. He is clearly in heart failure by exam. CXR with pulm edema which is clearly worse than previous admission. His O2 remains stable on NC O2 though is somewhat SOB with moving. With clear pulm edema, failure outpatient treatment I felt that IV lasix reasonable and he will likely need to come in for further management of this issue. Hospitalist consulted for this. Of note, Trop mildly above normal limits which seems to be baseline for patient and I do not feel is ACS. Symptoms more likely CHF than DVT/PE. No infectious findings appreciated. Hyperglycemia noted and he admits BSG 500 this morning. Seems his PO meds just don't cut it as he is always quite hyperglycemic on arrival despite that his A1C a few weeks ago is not that bad. Given sub q insulin and will defer further management to hospitalist. He is not in DKA at this time. Medication Reconcilliation Current Medication List: was personally reviewed by me Blood Pressure Screening Patient's blood pressure: Elevated blood pressure Blood pressure disposition: Elevated BP felt to be situational Consults Time Called: 1708 Consulting Physician: Lance Sam MD Returned Call: [phone] Discussed the patient's case. The patient will be evaluated for further treatment and disposition. Impression Primary Impression: Pulmonary edema Additional Impressions: Acute congestive heart failure Hyperglycemia Scribe Attestation The scribe's documentation has been prepared under my direction and personally reviewed by me in its entirety. I confirm that the note above accurately reflects all work, treatment, procedures, and medical decision making performed by me. Departure Information Referrals Aissatou Chin M.D. (PCP) Patient Instructions [facility] Problem Qualifiers
[2018-01-04 15:51] LABS: BASO % 0.2 %; BASO ABS # 0.02 K/uL (0-0.2); EOS % 0.4 %; EOS ABS # 0.04 K/uL (0-0.5); HEMATOCRIT 35.8 % (42-52); HEMOGLOBIN 12.1 g/dL (14.0-18.0); IG# 0.04 K/uL (0.00-0.02); LYMPH ABS # 0.67 K/uL (1.2-3.4); MEAN CELL VOLUME 87.5 fL (80-100); MEAN CORPUSCULAR HEMOGLOBIN 29.6 pg (25-34); MEAN CORPUSCULAR HGB CONC 33.8 g/dl (32-36); MEAN PLATELET VOLUME 11.7 fL (7.4-10.4); MONO % 9.9 %; NEUT % 83.1 %; NEUT ABS # 9.23 K/uL (1.4-6.5); PLATELET COUNT 227 K/uL (130-400); RED CELL DISTRIBUTION WIDTH CV 14.7 % (11.5-14.5); RED CELL DISTRIBUTION WIDTH SD 46.6 fL (36.4-46.3)
--- NOTE | 2018-01-04 15:57 | DIAGNOSTIC IMAGING REPORT ---
CHEST ONE VIEW PORTABLE CLINICAL HISTORY: 67 years-old Male presenting with SHOB. TECHNIQUE: Portable upright AP view of the chest was obtained. COMPARISON: 12/29/2017. FINDINGS: Atherosclerosis of aortic arch. Cardiac silhouette enlarged. Median sternotomy wires noted. Mildly low lung volumes with hypoventilatory changes. New bibasilar hazy opacities and small bilateral pleural effusions. Bronchial wall thickening. No pneumothorax. Osseous structures normal. IMPRESSION: 1. Interval development of hazy bibasilar opacities and small bilateral pleural effusions with bronchial wall thickening. This is most concerning for pulmonary edema in the setting of cardiomegaly. Electronically signed by: Matthew Mccabe M.D. 01/04/2018 3:56 PM Dictated Date/Time: 01/04/2018 3:55 PM
[2018-01-04 16:26] LABS: CALCIUM 8.8 mg/dl (8.5-10.1); CREATININE 1.39 mg/dl (0.60-1.40); POTASSIUM 4.2 mmol/L (3.5-5.1)
[2018-01-04] MEDS ORDERED: FUROSEMIDE 40 MG/4 ML VIAL IV STA (16:30)
[2018-01-04] MEDS ORDERED: NovoLIN-R INSULIN PER UNIT CHARGE SC STA (16:37)
[2018-01-04] MEDS ORDERED: MAGN250T8 PO (16:38)
[2018-01-04] MEDS ORDERED: SPIR25TA PO (16:38)
[2018-01-04] MEDS ORDERED: PANT40TA PO (16:38)
[2018-01-04] MEDS ORDERED: POLYETHYLENE (MIRALAX) 17 GM PACK PO PRN (19:15)
[2018-01-04] MEDS ORDERED: GLUCOSE 10 TABS/TUBE PO PRN (19:15)
[2018-01-04] MEDS ORDERED: DEXTROSE 50% 50 ML SYR IV PRN (19:15)
[2018-01-04] MEDS ORDERED: ONDANSETRON INJ 2 MG/ML 2 ML VIAL IV PRN (19:15)
[2018-01-04] MEDS ORDERED: ACETAMINOPHEN 325 MG TAB PO PRN (19:15)
[2018-01-04] MEDS ORDERED: ALUMINUM/MAGNESIUM/SIMETH (MAALOX MAX) 30 ML UDC PO PRN (19:15)
[2018-01-04] MEDS ORDERED: GLUCAGON FOR INJ 1 MG VIAL SQ PRN (19:15)
[2018-01-04] MEDS ORDERED: GLUCOSE 40% GEL 15 GM TUBE PO PRN (19:15)
[2018-01-04] MEDS ORDERED: NITROGLYCERIN 0.4 MG SL PER TAB CHARGE UT PRN (19:15)
[2018-01-04] MEDS ORDERED: MAGNESIUM HYDROXIDE SUSP 30 ML UDC PO PRN (19:15)
--- NOTE | 2018-01-04 19:36 | History and Physical ---
History & Physical Date & Time of Service: Jan 04, 2018 at 19:16 Chief Complaint: Heart Failure, Sob, Referred By Michael Moon Primary Care Physician: Aissatou Chin M.D. History of Present Illness Source: patient, clinic records, hospital records This is a 67 y/o male with a history of systolic CHF, CAD, NSTEMI, HTN, HLD, DM II, and GERD who presented to the ED on 01/04 with worsening shortness of breath , weight gain, and increased edema. The patient states that in the last several weeks he has had worsening shortness of breath, dyspnea on exertion, weight gain, and swelling. He notes gaining about 15 pounds in the last few weeks. He states he is trying to be better about watching his sodium intake, however he notes that he often eats out. He complains of orthopnea and intermittent wheezing while laying down. 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 He notes that he is feeling generally weak and fatigued and could barely get out of the shower today. The patient denies fevers, chills, sweats, chest pain, palpitations, claudication, cough, nausea, vomiting, abdominal pain, dysuria, hematuria, urinary retention, paralysis, focal weakness, numbness and tingling. Past Medical/Surgical History Medical Problems: (1) Abnormal EKG Status: Resolved (2) Atrial Fibrillation Status: Resolved (3) CHF (congestive heart failure) Status: Chronic (4) CHF (congestive heart failure) Status: Chronic (5) Diab [place] Wo Compl, Type Ii Or Unspec Type, Not Uncntrld Status: Chronic (6) Hyperglycemia Status: Resolved (7) Hyperlipidemia Nec/Nos Status: Chronic (8) Hypertension Nos Status: Chronic (9) New left bundle branch block Status: Resolved (10) Old Myocardial Infarct Status: Resolved (11) Pneumonia Status: Resolved (12) Shortness of breath Status: Resolved (13) SOB (shortness of breath) Status: Resolved Surgical Problems: (1) H/O cardiac catheterization Status: Resolved (2) H/O heart artery stent Status: Resolved (3) H/O heart bypass surgery Status: Resolved (4) Status post double vessel coronary artery bypass Status: Resolved Family History Cancer Diabetes mellitus FH ischemic heart disease Social History Smoking Status: Former Smoker Drug Use: none Marital Status: in relationship Housing status: lives alone Occupational Status: employed Immunizations History of Influenza Vaccine: No History of Tetanus Vaccine?: No History of Pneumococcal: No History of Hepatitis B Vaccine: No Multi-Drug Resistant Organisms History of MDRO: No Allergies Coded Allergies: Amoxicillin (Verified Allergy, Severe, hives swelling redness lip swelling , 01/04/18) Clavulanic Acid (Verified Allergy, Severe, hypotensive shock, 01/04/18) Iodinated Diagnostic Agents (Verified Allergy, Intermediate, HIVES, ) Prednisone (Verified Allergy, Intermediate, SHORTNESS OF BREATH, 01/04/18) as per patient Home Medications Scheduled Ascorbic Acid (Ascorbic Acid), 1,000 MG PO BID B-Complex Vitamins (Vitamin B Complex), 1 TAB PO QAM Coenzyme Q10 (Ubidecarenone) (Co Q 10), 200 MG PO DAILY Furosemide (Lasix), 40 MG PO BID Glipizide (Glipizide Er), 10 MG PO BID Losartan Potassium (Losartan Potassium), 25 MG PO QAM Magnesium Oxide (Mg Supplement (Magnesium), 250 MG PO QAM Metoprolol Tartrate (Lopressor) (Lopressor), 50 MG PO BID Pantoprazole (Protonix), 40 MG PO BID Spironolactone (Aldactone), 25 MG PO QAM Scheduled PRN Nitroglycerin (Nitrostat), 0.4 MG UT PRN PRN for Chest Pain Review of Systems Constitutional: +Weak. No fever, No chills, No sweats Eyes: No worsening of vision, No eye pain, No diplopia ENT: No hearing loss, No nasal symptoms, No trouble swallowing Respiratory: +MCCOLLUM, SOB, wheezing. No cough Cardiovascular: No chest pain, No claudication, No palpitations Abdomen: No pain, No nausea, No vomiting Musculoskeletal: +Lower extremity swelling. No joint pain, No muscle pain Genitourinary - Male: No dysuria, No urinary retention, No hematuria Neurologic: No paralysis, No weakness, No numbness/tingling Integumentary: No rash, No itch, No color change Physical Exam Vital Signs Date Time Temp Pulse Resp B/P (MAP) Pulse Ox O2 Delivery O2 Flow Rate FiO2 01/04/18 17:40 96 Room Air 01/04/18 17:39 98 20 143/85 99 Room Air 01/04/18 16:49 101 01/04/18 15:13 36.8 102 20 143/87 95 Room Air General appearance: Well-developed, well-nourished, no apparent distress Head: Normocephalic, atraumatic Eyes: Normal inspection, PERRL, EOMI ENT: Normal ENT inspection, hearing grossly normal, pharynx normal Neck: Supple, no JVD, trachea midline Respiratory/Chest: +Decreased breath sounds in bases bilaterally. Faint crackles. No respiratory distress Cardiovascular: Regular rate & rhythm, no gallop, no murmur Abdomen/GI: Normal bowel sounds, non-tender, soft Extremities/Musculoskeletal: +2+ pitting edema extending up to knees. Normal inspection, no calf tenderness Neurological/Psych: Alert, normal mood/affect, oriented x 3 Skin: Normal color, warm/dry, no rash Diagnostics Laboratory Results Results Past 24 Hours Test 01/04/18 15:33 Range/Units White Blood Count 11.10 4.8-10.8 K/uL Red Blood Count 4.09 4.7-6.1 M/uL Hemoglobin 12.1 14.0-18.0 g/dL Hematocrit 35.8 42-52 % Mean Corpuscular Volume 87.5 80-100 fL Mean Corpuscular Hemoglobin 29.6 25-34 pg Mean Corpuscular Hemoglobin Concent 33.8 32-36 g/dl Platelet Count 227 130-400 K/uL Mean Platelet Volume 11.7 7.4-10.4 fL Neutrophils (%) (Auto) 83.1 % Lymphocytes (%) (Auto) 6.0 % Monocytes (%) (Auto) 9.9 % Eosinophils (%) (Auto) 0.4 % Basophils (%) (Auto) 0.2 % Neutrophils # (Auto) 9.23 1.4-6.5 K/uL Lymphocytes # (Auto) 0.67 1.2-3.4 K/uL Monocytes # (Auto) 1.10 0.11-0.59 K/uL Eosinophils # (Auto) 0.04 0-0.5 K/uL Basophils # (Auto) 0.02 0-0.2 K/uL RDW Standard Deviation 46.6 36.4-46.3 fL RDW Coefficient of Variation 14.7 11.5-14.5 % Immature Granulocyte % (Auto) 0.4 % Immature Granulocyte # (Auto) 0.04 0.00-0.02 K/uL Sodium Level 130 136-145 mmol/L Potassium Level 4.2 3.5-5.1 mmol/L Chloride Level 93 98-107 mmol/L Carbon Dioxide Level 28 21-32 mmol/L Anion Gap 9.0 3-11 mmol/L Blood Urea Nitrogen 26 7-18 mg/dl Creatinine 1.39 0.60-1.40 mg/dl Est Creatinine Clear Calc Drug Dose 54.0 ml/min Estimated GFR () 60.8 Estimated GFR (Non- 52.4 BUN/Creatinine Ratio 18.9 10-20 Random Glucose 409 70-99 mg/dl Calcium Level 8.8 8.5-10.1 mg/dl Magnesium Level 2.3 1.8-2.4 mg/dl Troponin I 0.052 0-0.045 ng/ml Pro-B-Type Natriuretic Peptide 49301 0-900 pg/ml Beta-Hydroxybutyric Acid 4.84 0.2-2.81 mg/dL Diagnostic Radiology Reviewed the following studies and agree with interpretation as follows: CHEST ONE VIEW PORTABLE CLINICAL HISTORY: 67 years-old Male presenting with SHOB. TECHNIQUE: Portable upright AP view of the chest was obtained. COMPARISON: 12/29/2017. FINDINGS: Atherosclerosis of aortic arch. Cardiac silhouette enlarged. Median sternotomy wires noted. Mildly low lung volumes with hypoventilatory changes. New bibasilar hazy opacities and small bilateral pleural effusions. Bronchial wall thickening. No pneumothorax. Osseous structures normal. IMPRESSION: 1. Interval development of hazy bibasilar opacities and small bilateral pleural effusions with bronchial wall thickening. This is most concerning for pulmonary edema in the setting of cardiomegaly. EKG Reviewed EKG and agree with interpretation as follows: 102 bpm, sinus tachycardia Impression Assessment and Plan 67 y/o male with a history of systolic CHF, CAD, NSTEMI, HTN, HLD, DM II, and GERD who presented to the ED on 01/04 with worsening shortness of breath, weight gain, and increased edema. Pt slightly tachycardic on arrival, otherwise AVSS. CXR shows interval development of bibasilar opacities and small bilateral pleural effusions from previous 12/29 study, concerning for pulmonary edema. EKG no ischemic changes. Pt reports feeling better after a dose of IV Lasix in ED. WBC 11.10. BSG 409. Troponin mildly elevated at 0.052. BNP 94451. Acute on chronic systolic heart failure -Admit to telemetry -Daily weights, strict I's & O's -Lasix 40 mg IV BID17 -Low sodium diet -Last echo 12/18/17 showed EF 30%. Large inferior, posterior, and septal CO w/ severe hypokinesis to akinesis. Grade II diastolic dysfunction. -Consult cardiology, appreciate recs. Pt follows with Dr. Landa -Continue spironolactone 25 mg PO qd, BB, ARB CAD, h/o NSTEMI, HTN, HLD--stable -Troponin mildly elevated at 0.052, but coming down from last month. Trend x 3 to ensure still trending down -Continue losartan 25 mg PO qd, Lopressor 50 mg PO BID DM II--last HgbA1c was 7.0 on 12/18/17 -Hold glipizide -Insulin sliding scale -Check BSGs q ac and qhs DVT prophylaxis -Enoxaparin 40 mg SC q24h -FACUNDO Gonzalez Code Status -Level I, FULL RESUSCITATION STATUS I personally interviewed and examined the patient. I agree with history of present illness and physical exam mentioned above, I also performed my own history taking and examination. Past medical history and review of system has been obtained by myself I reviewed all pertinent labs and studies Reviewed current medications I discussed and formulated of the assessment and plan mentioned above. Please refer to the Summary mentioned below. 67-year-old man with past medical history of systolic CHF, CAD, hypertension and dyslipidemia presented to the hospital with progressive shortness of breath and weight gain. Chest x-ray revealed pulmonary edema and blood sugar is elevated. Patient will be admitted for diuresis and blood sugar control. General Appearance: Mild acute distress, cannot speak full sentences Eyes: normal Sclerae, extraocular muscle intact ENT: hearing grossly normal Neck: supple Respiratory/Chest: Decreased air entry bilateral , mild respiratory distress but no accessory muscle use at rest , bilateral basal crackles and rhonchi Cardiovascular: regular rate, rhythm, no murmur Abdomen: non tender, soft, no masses Extremities: no edema Neurologic/Psychiatric: Awake alert oriented times place and person moves all extremities sensation intact cranial nerves II-12 appear to be intact Skin: normal color, warm/dry, no rash Lance Dickson MD, [facility] Level of Care Telemetry Resuscitation Status FULL RESUSCITATION VTE Prophylaxis VTE Risk Assessment Done? Y/N: Yes Risk Level: Moderate Given or contraindicated: Enoxaparin (Lovenox)SQ, T.E.D. Stockings, SCD's
[2018-01-04] MEDS: INSULIN ASPART 100 UNITS/ML 3 ML PEN SC SCH (21:00)
[2018-01-04 21:19] VITALS: BP 123/79; PULSE 91; TEMP 36.8; O2SAT 98
[2018-01-04] MEDS ORDERED: ENOXAPARIN 40 MG/0.4 ML SYR SC SCH (22:00)
[2018-01-04] MEDS: METOPROLOL TARTRATE 50 MG TAB PO SCH (22:47)
[2018-01-04] MEDS: PANTOprazole SOD 40 MG TAB PO SCH (22:47)
[2018-01-04 23:36] VITALS: BP 100/54; PULSE 98; TEMP 36.6; O2SAT 96; Ht 177.8 cm; Wt 84.3 kg
[2018-01-05] MEDS ORDERED: ZOLPIDEM TARTRATE 5 MG TAB PO PRN (01:15)
[2018-01-05 07:08] VITALS: BP 118/76; PULSE 92; TEMP 36.7; O2SAT 100
[2018-01-05 07:48] LABS: HEMATOCRIT 37.7 % (42-52); HEMOGLOBIN 12.3 g/dL (14.0-18.0); MEAN CELL VOLUME 88.9 fL (80-100); MEAN CORPUSCULAR HGB CONC 32.6 g/dl (32-36); PLATELET COUNT 205 K/uL (130-400); RED CELL DISTRIBUTION WIDTH CV 14.7 % (11.5-14.5); RED CELL DISTRIBUTION WIDTH SD 47.4 fL (36.4-46.3); WHITE BLOOD COUNT 11.48 K/uL (4.8-10.8)
[2018-01-05 08:00] VITALS: O2SAT 100
[2018-01-05] MEDS: METOPROLOL TARTRATE 50 MG TAB PO SCH (08:17)
[2018-01-05] MEDS: PANTOprazole SOD 40 MG TAB PO SCH (08:17)
[2018-01-05 08:18] LABS: CALCIUM 8.7 mg/dl (8.5-10.1); CREATININE 1.41 mg/dl (0.60-1.40); POTASSIUM 4.1 mmol/L (3.5-5.1)
[2018-01-05] MEDS ORDERED: SPIRONOLACTONE 25 MG TAB PO SCH (09:00)
[2018-01-05] MEDS ORDERED: LOSARTAN POTASSIUM 25 MG TAB PO SCH (09:00)
[2018-01-05] MEDS ORDERED: FUROSEMIDE INJ 40 MG in SYRINGE 0 ML IV SCH (09:00)
[2018-01-05] MEDS: INSULIN ASPART 100 UNITS/ML 3 ML PEN SC SCH ×2 (09:18→12:52)
[2018-01-05 12:00] VITALS: BP 123/80; PULSE 92; TEMP 36.8; O2SAT 100
[2018-01-05] MEDS ORDERED: FURO40TA3 PO (13:15)
--- NOTE | 2018-01-05 13:27 | Discharge Instructions ---
Discharge Instructions Date of Service Jan 05, 2018. Admission Reason for Admission: Acute Congestive Heart Failure Discharge Discharge Diagnosis / Problem: 1. Acute on Chronic Systolic CHF. 2. Ischemic Cardiomyopathy. 3. CAD Discharge Goals Goal(s): Improve function, Improve disease control, Therapeutic intervention, Prevent Disease Progression Activity Recommendations Activity Limitations: resume your previous activity Lifting Limitations: gradually increase as tolerated Exercise/Sports Limitations: gradually increase as tolerated May Resume Sexual Activity: when tolerated Shower/Bathe: no limitations Driving or Machine Use: no limitations . Instructions / Follow-Up Instructions / Follow-Up Call your Primary Care doctor if any of the following symptoms or problems start or get worse: * Shortness of breath or difficulty breathing * Wake up at night short of breath * Chest pain * Cough * Swelling of your hands, feet, or legs * More fatigued or tired with your normal activity * Palpitations - sudden fast heart beats WEIGHT * Weigh yourself every morning after using the bathroom. * Use the same scale. * Wear the same amount of clothing. * Write your weight down on a chart. * Call your Primary Care doctor if you gain more than 2-3 pounds in 1-2 days. MEDICATIONS * Use this discharge instruction sheet for medication instructions. * Take your medications at the time your doctor ordered. * Do not skip a dose of your medicines. * If you miss a dose of medicine, take it as soon as possible, but DO NOT DOUBLE A DOSE. * Read your medicine information when you get home. * Know all of the side effects of your medicine. If in doubt, ask your pharmacist * Call your Primary Care doctor's office if you have any side effects. * Be sure all of your doctors know what medicine and herbs you take (including cold, flu, and herbal medicine). Take the following with you to your follow-up doctor appointments: * Weight Chart * Medication List * List of questions Do not drink excessive alcohol, beer or wine. Current Hospital Diet Patient's current hospital diet: Low Sodium Diet (2gm Na), Diabetes Type 2 Diet Discharge Diet Recommended Diet: AHA Diet (Heart Healthy), Low Sodium Diet (2gm Na) Fluid Restriction: None Pending Studies Studies pending at discharge: no Laboratory Results Hemoglobin A1c Test 12/18/17 16:17 Range/Units Estimated Average Glucose 154 mg/dl Hemoglobin A1c 7.0 H 4.5-5.6 % Medical Emergencies . Who to Call and When: Call 911 or go to the Emergency Room if: * If at any time you feel your situation is an emergency * You have tightness or pain in your chest that does not go away with rest or Nitroglycerin * You are very short of breath even with rest . Non-Emergent Contact Non-Emergency issues call your: Primary Care Provider Call Non-Emergent contact if: you have any medication questions . Past History Medical & Surgical History: (1) Acute exacerbation of CHF (congestive heart failure) (2) Atrial Fibrillation (3) CHF (congestive heart failure) (4) NSTEMI (non-ST elevated myocardial infarction) (5) Abnormal EKG (6) New left bundle branch block (7) Hypertension Nos . "Provider Documentation" section prepared by Zen Villaseñor. . Electronic Imaging System Operator Recommendations Electronic Imaging System Operator Recommendations: 1. Weigh yourself daily and keep a record of your body weight. 2. Maintain a Low Sodium diet (less than 2000 mg of Sodium / day) 3. Take medications as directed. 4. Keep follow up appointment with Dr. Chin as scheduled. 5. Keep follow up appointment with Michael Moon PA-C with [facility]. 6. If your body weight does trend down towards your "dry weight" - contact your g[employer] intelligence support's office. VTE Core Measure Inpt VTE Proph given/why not?: Enoxaparin (Lovenox)KUSHAL, T.EBre Easley, SCD's
[2018-01-05 14:13] VITALS: BP 123/80; PULSE 92; TEMP 36.8; O2SAT 100
--- NOTE | 2018-01-05 14:18 | PROGRESS NOTE ---
DATE: 01/05/2018 HOSPITALIST PROGRESS NOTE AND DISCHARGE SUMMARY ADMITTING DIAGNOSES: 1. Acute on chronic systolic congestive heart failure. 2. Ischemic cardiomyopathy, left ventricular ejection fraction of 30%. 3. Coronary artery disease status post prior myocardial infarction. 4. History of noncompliance with a low sodium diet. SECONDARY DIAGNOSES: 1. Left bundle branch block. 2. Hypertension. 3. Hyperlipidemia. 4. Type 2 diabetes mellitus. 5. History of atrial fibrillation. 6. History of gastrointestinal bleeding. 7. History of non-ST elevation myocardial infarction. 8. History of toe osteomyelitis. 9. History of coronary artery bypass grafting x2 vessels. 10. History of intracoronary stents. HOSPITAL COURSE: Mr. Cook is a 67-year-old white male with a history of an ischemic cardiomyopathy, LVEF 30%, CAD status post CABG x2 vessels, and a history of intracoronary stents, chronic systolic CHF, paroxysmal atrial fibrillation, hypertension, dyslipidemia, left bundle branch block, and prior MIs who was admitted acutely yesterday complaining of increasing shortness of breath over the preceding 3 weeks, 15 pounds of nonintentional weight gain, and intermittent wheezing, especially with lying down. The patient was admitted to the medical floor, and given IV Lasix 40 mg b.i.d., and has had a decrease in his body weight of 2.2 kilograms since admission. Additionally, he has had significant relief of his symptoms. He still has some evidence of mild volume overload, but his outpatient diuretic was only increased on 01/03/2018, and he only took 1 extra dose as an outpatient. On admission, he was noted to have cardiomegaly, pulmonary edema, and small bilateral pleural effusions consistent with CHF. Additionally, his ProBNP was elevated at 30,978 pg/mL. The patient does have a slight bump in his troponin I level, but this may be trending down from a relatively recent NSTEMI (associated with GI bleeding). The patient is currently feeling well. He denies any shortness of breath, orthopnea or PND. He has not experienced any angina pectoris, chest pain, heaviness, tightness, pressure, or discomfort. He denies any palpitations, tachypalpitations, syncope, or near syncope. LABORATORIES: Sodium 131 mmol/L, potassium 4.1 mmol/L, BUN 25 mg/dL, creatinine 1.41 mg/dL and random glucose 251 mg/dL, and magnesium 2.3 mg/dL on admission. Troponin I level is 0.055, 0.067, and 0.052 ng/mL; ProBNP is markedly elevated at 30,978 pg/mL. White blood cell count is 11.48, hemoglobin 12.3 g/dL, hematocrit 37.7%, and platelet count is 205,000. IMAGING DATA: EKG on admission shows a sinus tachycardia at a rate of 103 beats per minute with a left bundle branch block pattern. Subsequent EKG done earlier today shows sinus rhythm at the rate of 99 beats per minute with a left bundle branch block, nonspecific T-wave abnormality. No significant change. DISCHARGE MEDICATIONS: 1. Lasix 40 mg p.o. b.i.d. 2. Losartan 25 mg daily. 3. Aldactone 25 mg daily. 4. Lopressor 50 mg p.o. b.i.d. 5. Protonix 40 mg b.i.d. 6. Tylenol p.r.n. 7. Sublingual nitroglycerin as needed. 8. Glipizide 10 mg b.i.d. 9. Mag-Ox 250 mg each morning. 10. Coenzyme Q10 200 mg daily. 11. Vitamin B complex 1 tablet daily. 12. Vitamin C 1000 mg p.o. every day. DISCHARGE INSTRUCTIONS: 1. Monitor daily weight and record it. 2. Maintain a low sodium, heart healthy diabetic diet. Less 2000 mg of sodium per day. 3. Take medications as directed. If your body weight does not continue to trend towards your dry weight, contract your client advocate's office. 4. Keep followup appointment with Dr. Chin on Sunday01/07/2018 as previously scheduled. 5. Keep appointment with Michael Moon PA-C on 01/09/2018 with [facility]. TRAE
--- NOTE | 2018-01-07 08:01 | CARDIOLOGY CONSULTATION ---
DATE OF CONSULTATION: 01/05/2018 REFERRING PHYSICIAN: Dr. Lazar. INDICATIONS: Congestive heart failure, acute dyspnea. HISTORY OF PRESENT ILLNESS: The patient is a very complex 67-year-old male, well known to the cardiovascular service. Please refer to full consultation done on past hospitalization on 12/17/2017 for past history of extensive details. His underlying history is notable for prior coronary bypass grafting and multiple coronary interventions, initial bypass surgery in 2005. He carries an underlying history of ischemic cardiomyopathy, intermittent left bundle branch block, at least twoarfgy-ur-brfoni mitral insufficiency, past difficulties with class 3 decompensated congestive heart failure, paroxysmal atrial fibrillation, diabetes mellitus, hypertension, hyperlipidemia. His recent course has been complex with notable difficulties with esophageal ulceration requiring intervention for esophageal stricture, past upper GI bleed. The patient presents now noting having been hospitalized on 12/30/2017, with shortness of breath and plans for esophageal stricture management. Diuretics were held then increased on discharge. He was recently seen in the outpatient setting and diuretics increased to furosemide 40 mg twice per day. The patient notes he did not have time to initiate subsequent therapies as described, and became dyspneic enough to seek further hospital care on 01/04/2018. Examination was notable for mild signs and symptoms of volume overload. He was given IV furosemide 40 mg in the ER and 40 mg this morning. He has had brisk diuresis by his description, though I's and O's not specifically recorded. Weight is down approximately 2 kg, and he feels improved. Notes no chest pains. Notes no tachypalpitations. Notes no syncope. Notes no fevers, chills or productive cough. Notes no ongoing dysphasia. Has been taking medications as prescribed. He is anxious to be discharged to home per his own description. ALLERGIES: AMOXICILLIN, CLAVULANIC ACID, IODINE, PREDNISONE. MEDICATIONS: Per medication reconciliation list as vitamin C 1000 twice per day, vitamin B complex, Coenzyme Q10, furosemide 40 mg b.i.d. as a recent increase, glipizide 10 mg b.i.d., losartan 25 mg p.o. q. day, Mag-Ox 250 mg p.o. q. day, metoprolol tartrate 50 mg twice per day, spironolactone 25 mg p.o. q. day, pantoprazole 40 mg twice per day. PAST SURGICAL, FAMILY, SOCIAL HISTORY: Please refer to past consultation. PHYSICAL EXAMINATION: VITAL SIGNS: Today heart rate is 84, blood pressure is 123/80. HEENT: Normocephalic and atraumatic. Nares without discharge. Throat was clear. NECK: Supple. Jugular venous pressure appears normal at 30 degrees with mild respiratory variation. LUNGS: Clear with mildly diminished breath sounds. CARDIOVASCULAR: Regular. There is a grade 2-3/6 systolic murmur heard best at the apex and mid axillary line. There is no S3 gallop. ABDOMEN: Soft, nontender. There is no palpable hepatosplenomegaly. There is no hepatojugular reflux. EXTREMITIES: Without cyanosis or clubbing. There is trace pedal edema only. LABORATORY DATA: White cell count is 11.4, hemoglobin is 12.3. Sodium is 131, potassium is 4.1, chloride is 92, bicarbonate is 30, BUN is 25, creatinine is 1.4. Troponins are minimally elevated but flat without evolution. DIAGNOSTIC DATA: EKG on presentation revealed sinus tachycardia with nonspecific interventricular conduction delay, no acute changes. Echocardiogram done on 12/18/2017 reveals marked severe left ventricular dysfunction, EF 30%, mild aortic sclerosis, grade 2 diastolic dysfunction. No significant mitral insufficiency at that time. IMPRESSION: A 67-year-old complex male with a history of ischemic cardiomyopathy with variable degree of mitral insufficiency, compensated in the past, class 2-3 congestive heart failure with recent exacerbation; who presents now with moderate volume overload which has responded to IV diuresis with 2 doses. Troponins are minimally elevated but without evolution to suggest infarct. He is on appropriate medical therapies and has declined prior pacer defibrillator implantation. There has been no signs of arrhythmia on monitor. Discussed findings in detail. He wishes to be discharged, which seems appropriate as he has responded to IV diuretics. PLAN: He will be discharged on current dosing of spironolactone and furosemide 40 mg twice a day. He is to followup with cardiovascular heart failure clinic on following Sunday. TRAE
[2018-01-08] MEDS ORDERED: PRT/20 PO (09:07)
[2018-01-08] MEDS ORDERED: [UNRECOGNIZED DRUG - OTHER] INH (09:10)
== END 2018-01-05 15:23 | disposition home or self-care (01) | DRG 293 ==
LOC: C.EDB 15:01 → C.MED 19:15 → ENRESERV 19:47 → C.MED 01-05 09:50
PROVIDERS: ADMIT Internal Medicine; ATTEND Internal Medicine
DX: I11.0 Hypertensive heart disease with heart failure (principal); I50.23 Acute on chronic systolic (congestive) heart failure; T50.1X6A Underdosing of loop [high-ceiling] diuretics, initial encounter; I25.5 Ischemic cardiomyopathy; I48.0 Paroxysmal atrial fibrillation; I34.0 Nonrheumatic mitral (valve) insufficiency; I44.7 Left bundle-branch block, unspecified; I25.10 Atherosclerotic heart disease of native coronary artery without angina pectoris; E11.65 Type 2 diabetes mellitus with hyperglycemia; E78.5 Hyperlipidemia, unspecified; K21.9 Gastro-esophageal reflux disease without esophagitis; I25.2 Old myocardial infarction; Z91.11 Patient's noncompliance with dietary regimen; Z95.5 Presence of coronary angioplasty implant and graft; Z95.1 Presence of aortocoronary bypass graft; Z87.19 Personal history of other diseases of the digestive system; Z87.891 Personal history of nicotine dependence; Z79.84 Long term (current) use of oral hypoglycemic drugs; Z79.899 Other long term (current) drug therapy; Z88.0 Allergy status to penicillin; Z88.8 Allergy status to other drugs, medicaments and biological substances; Z91.041 Radiographic dye allergy status

== ENCOUNTER 2018-01-14 21:20 | Emergency (ER) | payer OTHER, BC ==
[~2018-01-14] VITALS: Ht 177.8 cm; Wt 86.2 kg
[~2018-01-14 21:20] MED LIST changes: -ATV/1 PO; -FENTANYL CITRATE INJ 50 MCG/1 ML 2 ML VIAL ONE; -FRS/40 PO; -LIDOCAINE HCL 2% 2 ML VIAL (20MG/ML) ONE; -PROPOFOL IV EMULSION 10 MG/ML 20 ML VIAL IV ONE; -SODIUM CHLORIDE 0.9% 500ML 500 ML IV ONE; -TRAZ50TA35 PO
[2018-01-14 21:32] VITALS: TEMP 36.7; Ht 177.8 cm; Wt 86.2 kg
[2018-01-14 23:38] LABS: ALBUMIN 2.9 gm/dl (3.4-5.0); CALCIUM 8.4 mg/dl (8.5-10.1); CREATININE 1.43 mg/dl (0.60-1.40); TOTAL PROTEIN 6.4 gm/dl (6.4-8.2)
[2018-01-14 23:42] LABS: HEMATOCRIT 38.7 % (42-52); HEMOGLOBIN 12.8 g/dL (14.0-18.0); MEAN CORPUSCULAR HEMOGLOBIN 29.1 pg (25-34); MEAN CORPUSCULAR HGB CONC 33.1 g/dl (32-36); MEAN PLATELET VOLUME 12.4 fL (7.4-10.4); PLATELET COUNT 126 K/uL (130-400); RED CELL DISTRIBUTION WIDTH CV 14.4 % (11.5-14.5); RED CELL DISTRIBUTION WIDTH SD 46.2 fL (36.4-46.3); WHITE BLOOD COUNT 8.38 K/uL (4.8-10.8)
[2018-01-14 23:43] LABS: BASO % 0.2 %; BASO ABS # 0.02 K/uL (0-0.2); EOS % 0.4 %; EOS ABS # 0.03 K/uL (0-0.5); IG# 0.03 K/uL (0.00-0.02); LYMPH % 9.4 %; LYMPH ABS # 0.79 K/uL (1.2-3.4); MONO % 7.4 %; MONO ABS # 0.62 K/uL (0.11-0.59); NEUT % 82.2 %; NEUT ABS # 6.89 K/uL (1.4-6.5)
[2018-01-14] MEDS ORDERED: TRAZ50TA35 PO (23:46)
[2018-01-14] MEDS ORDERED: FRS/40 PO (23:48)
--- NOTE | 2018-01-15 | EMERGENCY ROOM VISIT NOTE ---
History Report prepared by Farrah: Arnulfo Damon Under the Supervision of: Dr. Courtney Berry D.O. First contact with patient: 23:06 Chief Complaint: ABDOMINAL PAIN Stated Complaint: UPSET STOMACH Nursing Triage Summary: pt reports recent admission s/p MD for Esophageal Ulcer Repair and stretching via EGD pt reports gaseous feeling in abd and increased nausea/anorexia pt also reports trouble swallowing pt reports HX of CHF with recent med changes that he feels are not effective due to increased swelling to legs pt also reports trouble sleeping at night History of Present Illness The patient is a 67 year old male who presents to the Emergency Room with complaints of on and off abdominal discomfort that feels like a spasm that started today. He notes that he had an esophageal endoscopy done today due to having esophageal ulcers which have healed, and he states that his esophagus has been dilated twice recently. The patient was recently admitted for 14 days after having an MD and CHF, and he was in the ICU for two days. He states that this pain does not feel like heart burn, and he states that the pain was improved with baking soda and water. The patient notes that he can actually see his abdominal shaking while he is having the discomfort. The patient additionally notes that he has not been sleeping very well for the past month, and he still has difficulty sleeping with Benadryl and trazodone. He even reports that he did not sleep well this morning after having anesthesia. The patient notes that he feels stressed recently due to his sickness, and he did not have anxiety prior to his recent illnesses. He states that he has still been short of breath, and he feels like he is having swelling in his legs and abdomen, and he denies any scrotal swelling. He also states that he takes pantoprazole, though he could not take it this morning due to the surgery. The patient states that he has been trying to walk around and use compression hoes on his legs. Source of History: patient Onset: today Position: abdomen Quality: other (spasm) Timing: other (on and off) Modifying Factors (Relieving): other (baking soda and water) Note: Associated symptoms: Leg swelling and abdominal swelling Review of Systems See HPI for pertinent positives & negatives. A total of 10 systems reviewed and were otherwise negative. 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, right Surgical Problems: (1) H/O cardiac catheterization (2) H/O heart artery stent (3) H/O heart bypass surgery (4) Status post double vessel coronary artery bypass Family History Cancer Diabetes mellitus FH ischemic heart disease Social History Smoking Status: Never Smoker Alcohol Use: none Drug Use: none Marital Status: in relationship Housing Status: lives alone Occupation Status: employed Current/Historical Medications Scheduled Ascorbic Acid (Ascorbic Acid), 1,000 MG PO BID B-Complex Vitamins (Vitamin B Complex), 1 TAB PO QAM Coenzyme Q10 (Ubidecarenone) (Co Q 10), 200 MG PO DAILY Furosemide (Lasix), 40 MG PO BID Glipizide (Glipizide Er), 10 MG PO BID Lorazepam (Ativan), 1 MG PO HS Losartan Potassium (Losartan Potassium), 25 MG PO QAM Magnesium Oxide (Mg Supplement (Magnesium), 250 MG PO QAM Metoprolol Tartrate (Lopressor) (Lopressor), 50 MG PO BID Pantoprazole (Protonix), 40 MG PO BID Spironolactone (Aldactone), 25 MG PO QAM Trazodone Hcl (Trazodone), 25-50 MG PO HS Scheduled PRN Nitroglycerin (Nitrostat), 0.4 MG UT PRN PRN for Chest Pain [Primatene Mist], 1-2 PUFFS INH DIRECTED PRN for Shortness of Breath Allergies Coded Allergies: Amoxicillin (Verified Allergy, Severe, hives swelling redness lip swelling , 01/14/18) Clavulanic Acid (Verified Allergy, Severe, hypotensive shock, 01/14/18) Iodinated Diagnostic Agents (Verified Allergy, Intermediate, HIVES, ) Prednisone (Verified Allergy, Intermediate, SHORTNESS OF BREATH, 01/14/18) as per patient Physical Exam Vital Signs Date Time Temp Pulse Resp B/P (MAP) Pulse Ox O2 Delivery O2 Flow Rate FiO2 01/15/18 02:28 94 20 152/89 92 01/15/18 00:59 97 16 138/89 86 Room Air 01/14/18 23:28 95 20 127/86 92 Room Air 01/14/18 21:32 36.7 88 20 129/77 97 Room Air Physical Exam HEENT: Head - normocephalic and atraumatic Pupils are equal, round, and reactive to light. Extraocular eye muscles are intact, and sclera are anicteric. Nose - moist nasal mucosa without discharge. Mouth - moist buccal mucosa. Oropharynx is nonerythematous and there is no tonsillar exudate or edema noted. Neck: Supple; no JVD, nuchal rigidity, cervical lymphadenopathy. Heart: Regular rate and rhythm. There is a normal S1 and S2 with no murmurs, clicks, or gallops appreciated. Lungs: Clear to auscultation bilaterally with no wheezes, rales, or rhonchi. Abdomen: Soft, completely nontender, nondistended, with good bowel sounds. There are no palpable pulsatile masses or hepatosplenomegaly. There is no guarding, rigidity, or rebound noted. Extremities: 2+ edema in his legs. No evidence of cyanosis or clubbing. There are easily palpable peripheral pulses. Skin: Pale. Warm and dry with good turgor and no rashes. Medical Decision & Procedures Laboratory Results 01/14/18 22:53 Red Blood Count 4.40, Mean Corpuscular Volume 88.0, Mean Corpuscular Hemoglobin 29.1, Mean Corpuscular Hemoglobin Concent 33.1, Mean Platelet Volume 12.4, Neutrophils (%) (Auto) 82.2, Lymphocytes (%) (Auto) 9.4, Monocytes (%) (Auto) 7.4, Eosinophils (%) (Auto) 0.4, Basophils (%) (Auto) 0.2, Neutrophils # (Auto) 6.89, Lymphocytes # (Auto) 0.79, Monocytes # (Auto) 0.62, Eosinophils # (Auto) 0.03, Basophils # (Auto) 0.02 01/14/18 22:53 01/15/18 00:10 Test 01/14/18 22:53 01/14/18 23:30 01/15/18 00:10 White Blood Count 8.38 K/uL (4.8-10.8) Red Blood Count 4.40 M/uL (4.7-6.1) Hemoglobin 12.8 g/dL (14.0-18.0) Hematocrit 38.7 % (42-52) Mean Corpuscular Volume 88.0 fL (80-100) Mean Corpuscular Hemoglobin 29.1 pg (25-34) Mean Corpuscular Hemoglobin Concent 33.1 g/dl (32-36) Platelet Count 126 K/uL (130-400) Mean Platelet Volume 12.4 fL (7.4-10.4) Neutrophils (%) (Auto) 82.2 % Lymphocytes (%) (Auto) 9.4 % Monocytes (%) (Auto) 7.4 % Eosinophils (%) (Auto) 0.4 % Basophils (%) (Auto) 0.2 % Neutrophils # (Auto) 6.89 K/uL (1.4-6.5) Lymphocytes # (Auto) 0.79 K/uL (1.2-3.4) Monocytes # (Auto) 0.62 K/uL (0.11-0.59) Eosinophils # (Auto) 0.03 K/uL (0-0.5) Basophils # (Auto) 0.02 K/uL (0-0.2) RDW Standard Deviation 46.2 fL (36.4-46.3) RDW Coefficient of Variation 14.4 % (11.5-14.5) Immature Granulocyte % (Auto) 0.4 % Immature Granulocyte # (Auto) 0.03 K/uL (0.00-0.02) Platelet Estimate DECREASED Anion Gap 10.0 mmol/L (3-11) Est Creatinine Clear Calc Drug Dose 52.5 ml/min Estimated GFR () 58.7 Estimated GFR (Non- 50.7 BUN/Creatinine Ratio 22.5 (10-20) Calcium Level 8.4 mg/dl (8.5-10.1) Total Bilirubin 0.9 mg/dl (0.2-1) Alanine Aminotransferase (ALT/SGPT) 90 U/L (12-78) Alkaline Phosphatase 141 U/L (45-117) Total Protein 6.4 gm/dl (6.4-8.2) Albumin 2.9 gm/dl (3.4-5.0) Globulin 3.5 gm/dl (2.5-4.0) Albumin/Globulin Ratio 0.8 (0.9-2) Lipase 438 U/L (73-393) Beta-Hydroxybutyric Acid mg/dL (0.2-2.81) Urine Color YELLOW Urine Appearance CLEAR (CLEAR) Urine pH 5.0 (4.5-7.5) Urine Specific [place] 1.027 (1.000-1.030) Urine Protein TRACE (NEG) Urine Glucose (UA) 3+ (NEG) Urine Ketones 1+ (NEG) Urine Occult Blood NEG (NEG) Urine Nitrite NEG (NEG) Urine Bilirubin NEG (NEG) Urine Urobilinogen NEG (NEG) Urine Leukocyte Esterase NEG (NEG) Urine WBC (Auto) 1-5 /hpf (0-5) Urine RBC (Auto) 0-4 /hpf (0-4) Urine Hyaline Casts (Auto) 1-5 /lpf (0-5) Urine Epithelial Cells (Auto) 5-10 /lpf (0-5) Urine Bacteria (Auto) NEG (NEG) Aspartate Amino Transf (AST/SGOT) 21 U/L (15-37) Laboratory results per my review. Medications Administered Medications (Trade) Dose Ordered Sig/[place] Route Start Time Stop Time Status Last Admin Dose Admin Lorazepam (Ativan Inj) 1 mg NOW STAT IV 01/15/18 00:02 01/15/18 00:03 DC 01/15/18 00:11 1 MG ED Course 2342: Past medical records reviewed. The patient was evaluated in room B4. A complete history and physical exam was performed. An IV lock was initiated and protocols were performed. 0002: Ativan 1mg IV 0102: I reevaluated the patient, and he was asleep, very relaxed, and easily able to sleep. We are going to road test him before going home. He will be discharged home. Spent some time talking with his family about his diet and significant hyperglycemia. We also talked about the importance of following a diabetic diet and low-sodium diet. Medical Decision The patient is a 67 year old male who presents to the ED with abdominal spasms. Differential diagnosis includes GERD, esophageal spasm, epigastric abdominal wall muscle spasm, insomnia, and anxiety. Lab results: Hemoglobin 12.8, platelet count is significantly low at 126, glucose 371, lipase of 438, total bilirubin 0.9, ALT of 90, AST of 21, BUN 32, creatinine 1.4, sodium 131, UA had 1+ ketones This is a 67-year-old male patient presents to the emergency department with epigastric abdominal muscle spasms. The patient describes a history of insomnia since he was admitted to the ICU in November for congestive heart failure. The patient admits to being anxious and unable to sleep. He has tried using Benadryl, Ambien, and trazodone with no improved sleep. The patient was given a dose of Ativan here in the emergency department and he had significant relaxation and was easily able to sleep. The patient had no further abdominal epigastric muscle spasms. This was relieved by the Ativan as well. We will prescribe this as an outpatient for him to use at bedtime. I have encouraged him to follow-up closely with his PCP with regards to the insomnia. Patient was noted to have a very high blood sugar. He admits that his blood sugars have been running high since his hospitalization. He is currently taking glipizide twice a day but only took it once a day because of his endoscopy which was performed earlier today. The patient's family was concerned about the edema in his lower extremities but admits that this is much improved from what it had been previously. Currently the patient is prescribed 80 mg of Lasix in the morning and 40 at night. I suggested they switch to 40 in the morning and 40 at night as the patient's sodium was low and labs were concerning for dehydration. I explained to the patient that he would not be able to drive or operate any machinery while using the Ativan anginal use it at bedtime. Medication Reconcilliation Current Medication List: was personally reviewed by me Blood Pressure Screening Patient's blood pressure: Normal blood pressure Impression Primary Impression: Intermittent epigastric abdominal pain Additional Impressions: Hyperglycemia Insomnia Scribe Attestation The scribe's documentation has been prepared under my direction and personally reviewed by me in its entirety. I confirm that the note above accurately reflects all work, treatment, procedures, and medical decision making performed by me. Departure Information Dispostion Home / Self-Care Prescriptions Lorazepam (ATIVAN) 1 Mg Tab 1 MG PO HS, #20 TAB Prov: Courtney Berry D.O. 01/15/18 Referrals Aissatou Chin M.D. (PCP) Forms Call Back Authorization, HOME CARE DOCUMENTATION FORM, IMPORTANT VISIT INFORMATION Patient Instructions Insomnia, Insomnia Tx, My [facility] Additional Instructions Take plenty of clear liquids Take lasix - 40mg twice a day. You must eat a diabetic diet. Please follow up closely with a grocery bagger thru your PCP. You must have your platelet count rechecked in 2-3 days. Ativan - 1 tab. at bedtime for sleep. Do not take trazadone with this med Problem Qualifiers Additional Impressions: Insomnia Insomnia type: unspecified Qualified Codes: G47.00 - Insomnia, unspecified
[2018-01-15] MEDS ORDERED: LORAZEPAM 2 MG/ML 1 ML VIAL IV STA (00:02)
[2018-01-15 00:44] LABS: POTASSIUM 3.7 mmol/L (3.5-5.1)
[2018-01-15] MEDS ORDERED: ATV/1 PO (02:08)
[2018-01-15 02:28] VITALS: BP 152/89; PULSE 94; O2SAT 92
== END 2018-01-15 02:30 | disposition home or self-care (01) ==
LOC: C.EDB 21:21
DX: R10.13 Epigastric pain (principal); E11.65 Type 2 diabetes mellitus with hyperglycemia; G47.00 Insomnia, unspecified; Z98.890 Other specified postprocedural states; Z87.19 Personal history of other diseases of the digestive system; I25.2 Old myocardial infarction; I11.0 Hypertensive heart disease with heart failure; I50.9 Heart failure, unspecified; I48.91 Unspecified atrial fibrillation; E78.5 Hyperlipidemia, unspecified; Z95.5 Presence of coronary angioplasty implant and graft; Z95.1 Presence of aortocoronary bypass graft; Z79.84 Long term (current) use of oral hypoglycemic drugs; Z88.0 Allergy status to penicillin; Z88.1 Allergy status to other antibiotic agents; Z91.041 Radiographic dye allergy status; Z88.8 Allergy status to other drugs, medicaments and biological substances; Z80.9 Family history of malignant neoplasm, unspecified; Z83.3 Family history of diabetes mellitus; Z82.49 Family history of ischemic heart disease and other diseases of the circulatory system

== ENCOUNTER → 2018-01-14 | Day surgery (SDC) | payer OTHER, BC ==
[2018-01-08 09:08] VITALS: Ht 177.8 cm; Wt 84.1 kg
[~2018-01-14] VITALS: Ht 177.8 cm; Wt 84.1 kg
[~2018-01-14] MED LIST changes: +ATV/1 PO; -CRFUDL PO; +FENTANYL CITRATE INJ 50 MCG/1 ML 2 ML VIAL ONE; +FRS/40 PO; -FURO-85 PO; -LEVO-18 PO; +LIDOCAINE HCL 2% 2 ML VIAL (20MG/ML) ONE; +MAGN250T8 PO; +PRIMATENE MIST INH; +PROPOFOL IV EMULSION 10 MG/ML 20 ML VIAL IV ONE; +PRT/20 PO; -PRT40 PO; -SLWMEC PO; +SODIUM CHLORIDE 0.9% 500ML 500 ML IV ONE; +SPIR25TA PO; +TRAZ50TA35 PO; +[UNRECOGNIZED DRUG - OTHER] INH
--- NOTE | 2018-01-14 09:36 | Endo History and Physical ---
History & Physical Date of Service: Jan 14, 2018. Chief Complaint: ESOPHAGEAL STRICTURE, ULCER Referring Physician: DR. HASTINGS History of Present Illness Esophageal stricture. Past Medical History Atrial Fibrillation, Diabetes, Angioplasty/Stent, Asthma, High Cholesterol, CABG , Heart Disease, CHF, Hypertension, DE Past Surgical History Hx Cardiac Surgery: Yes (CABG-2 VESSELS, HEART CATH (MULT.) 2 STENTS PLACED) Hx Internal Defibrillator: No Hx Pacemaker: No Hx Abdominal Surgery: No Hx of Implantable Prosthesis: No Hx Post-Op Nausea and Vomiting: No Hx Cancer Surgery: No Hx Thoracic Surgery: No Hx Orthopedic: Yes (3rd and 5th RT foot toe amputation) Hx Urinary Tract Surgery: No Family History None Social History Smoking Status: Former Smoker Hx Substance Use: No Hx Alcohol Use: No Allergies Coded Allergies: Amoxicillin (Verified Allergy, Severe, hives swelling redness lip swelling , 01/08/18) Clavulanic Acid (Verified Allergy, Severe, hypotensive shock, 01/08/18) Iodinated Diagnostic Agents (Verified Allergy, Intermediate, HIVES, ) Prednisone (Verified Allergy, Intermediate, SHORTNESS OF BREATH, 01/08/18) as per patient Current Medications Reported Home Medications Medications Dose Route/Sig Max Daily Dose Days Date Category [Primatene Mist] 1-2 Puffs INH DIRECTED PRN 01/14/18 Reported Protonix (Pantoprazole Sodium) 20 Mg Tab 20 Mg PO BID 01/08/18 Reported Lasix (Furosemide) 40 Mg Tab 40 Mg PO BID 30 01/05/18 Rx Aldactone (Spironolactone) 25 Mg Tab 25 Mg PO QAM 01/04/18 Reported Magnesium (Magnesium Oxide (Mg Supplement) 250 Mg Tab 250 Mg PO QAM 01/04/18 Reported Lopressor (Metoprolol Tartrate) 50 Mg Tab 50 Mg PO BID 12/29/17 Reported Co Q 10 (Coenzyme Q10 (Ubidecarenone)) 100 Mg Cap 200 Mg PO DAILY 12/16/17 Reported Losartan Potassium 25 Mg Tab 25 Mg PO QAM 12/16/17 Reported Nitrostat (Nitroglycerin) 0.4 Mg Sub 0.4 Mg UT PRN PRN 08/10/17 Reported Vitamin B Complex (B-Complex Vitamins) 1 Tab Tab 1 Tab PO QAM 08/10/17 Reported Ascorbic Acid 1,000 Mg Tab 1,000 Mg PO BID 08/10/17 Reported Glipizide Er (Glipizide) 10 Mg Tab 10 Mg PO BID 08/10/17 Reported Vital Signs Weight (Kilograms): 84.09 Height (Feet): 5 Height (Inches): 10 Date Time Temp Pulse Resp B/P (MAP) Pulse Ox O2 Delivery O2 Flow Rate FiO2 01/14/18 09:25 36.6 91 16 126/89 (101) 97 Room Air Physical Exam General Appearance: WD/WN, no apparent distress Respiratory/Chest: Auscultation: breath sounds normal, no wheezing Cardiovascular: Heart Auscultation: RRR, no murmurs Abdomen: Inspection & Palpation: soft, no tenderness, guarding & rebound Assessment and Plan EGD with dilation today.
--- NOTE | 2018-01-14 10:13 | GI REPORT ---
Procedure Date: 01/14/2018 9:26 AM Procedure: Upper GI endoscopy Indications: Dysphagia, For therapy of esophageal stenosis Medicines: Monitored Anesthesia Care Complications: No immediate complications. Estimated blood loss: None. Estimated Blood Loss: Estimated blood loss: none. Procedure: Pre-Anesthesia Assessment: - Prior to the procedure, a History and Physical was performed, and patient medications, allergies and sensitivities were reviewed. The patient's tolerance of previous anesthesia was reviewed. - ASA Grade Assessment: IV - A patient with severe systemic disease that is a constant threat to life. After obtaining informed consent, the endoscope was passed under direct vision. Throughout the procedure, the patient's blood pressure, pulse, and oxygen saturations were monitored continuously. The Scope was introduced through the mouth, and advanced to the third part of duodenum. The upper GI endoscopy was accomplished with ease. The patient tolerated the procedure well. Findings: One benign-appearing, intrinsic stenosis was found in the lower third of the esophagus. There was evidence of a healed ulceration and irregular Z-line. This stenosis was mildly severe and measured 1.5 cm (inner diameter). The stenosis was traversed. A guidewire was placed and the scope was withdrawn. Dilation was performed with a Savary dilator with no resistance at 15 mm and mild resistance at 16 mm and 17 mm. The scope was reinserted. There was a small mucosal tear after 16 mm and 17 mm. A small amount of food (residue) was found in the gastric body. The examined duodenum was normal. Impression: - Benign-appearing esophageal stenosis. Dilated. - A small amount of food (residue) in the stomach. - Normal examined duodenum. - No specimens collected. Recommendation: - Observe patient's clinical course. - Discharge patient to home (with escort). Jonathon Miranda M.D. Jonathon Miranda MD 01/14/2018 10:13:33 AM This report has been signed electronically. Note Initiated On: 01/14/2018 9:26 AM I attest to the content of the Intraoperative Record and orders documented therein, exceptions below
--- NOTE | 2018-01-14 10:24 | Discharge Instructions ---
Endoscopy Patient Instructions Date / Procedure(s) Performed Jan 14, 2018. EGD Allergy Information Coded Allergies: Amoxicillin (Verified Allergy, Severe, hives swelling redness lip swelling , 01/08/18) Clavulanic Acid (Verified Allergy, Severe, hypotensive shock, 01/08/18) Iodinated Diagnostic Agents (Verified Allergy, Intermediate, HIVES, ) Prednisone (Verified Allergy, Intermediate, SHORTNESS OF BREATH, 01/08/18) as per patient Discharge Date / Findings Jan 14, 2018. Healed esophageal ulcer, stenosis dilated to 17 mm. Medication Instructions Restart Stopped Medication(s): Restart all medications today. Take all pills with large drinks of water, do not lie down immediately after taking medications. Provider Instructions Activity Restrictions - No exercising or heavy lifting for 24 hours. - Do not drink alcohol the day of the procedure. - Do not drive a car or operate machinery until the day after the procedure. - Do not make any important decisions or sign important papers in 24 hours after the procedure. Following Day: - Return to full activity which may include returning to work/school. Diet Start your diet with liquids and light foods (jello, soup, juice, toast). Then eat your usual diet if not nauseated. Treatment For Common After Affects For mild abdominal pain, bloating, or excessive gas: - Rest - Eat lightly - Lie on right side Follow-Up Information Follow-up with DR. HASTINGS as scheduled Anesthesia Information What You Should Know You have had a procedure that required some medicine to reduce anxiety and discomfort. This treatment is called moderate sedation. After receiving the treatment, you may be sleepy, but you will be able to breathe on your own. The effects of the treatment may last for several hours. Follow these instructions along with Activity/Diet recommendations noted above: * Do NOT do anything where dizziness or clumsiness would be dangerous. * Rest quietly at home today, then you can be up and about tomorrow. * Have a responsible person stay with you the rest of today. * You may have had an I.V. today. If so, you may take the dressing off later today. Recommendations Call your doctor if: * Trouble breathing * Continuous vomiting for more than 24 hours * Temperature above 101 degrees * Severe abdominal pain or bloating * Pain not relieved by pain medicine ordered * There is increased drainage or redness from any incision * A large amount of rectal bleeding greater than 2-3 tablespoons. (If you had a polyp/s removed or have hemorrhoids, a small amount of blood - from the rectum is to be expected.) * You have any unanswered questions or concerns. IN THE EVENT OF A SERIOUS EMERGENCY, GO TO THE NEAREST EMERGENCY ROOM Your discharge instructions were prepared by provider Jonathon Miranda. Patient Instructions Signature Page Enmanuel Cook Patient (or Guardian) Signature/Date: I have read and understand the instructions given to me by my caregivers. Caregiver/RN/Doctor Signature/Date: The above-named patient and/or guardian has received patient instructions on this date. + Original Patient Signature Page (only) stays with chart. Please make copy for patient.
[2018-01-14 10:40] VITALS: BP 137/92; PULSE 80; O2SAT 95
--- NOTE | 2018-01-14 11:08 | Anesthesiology Progress Note ---
Anesthesia Post Op Note Date & Time Jan 14, 2018 at 11:07 Vital Signs Pain Intensity: 0 Vital Signs Past 12 Hours Date Time Temp Pulse Resp B/P (MAP) Pulse Ox O2 Delivery O2 Flow Rate FiO2 01/14/18 10:40 80 16 137/92 (107) 95 Room Air 01/14/18 10:32 96 Room Air 01/14/18 10:26 84 16 143/90 (107) 93 Room Air 01/14/18 10:10 87 12 140/83 (102) 97 Mask 15 01/14/18 09:25 36.6 91 16 126/89 (101) 97 Room Air Notes Mental Status: alert / awake / arousable, participated in evaluation Pt Amnestic to Procedure: Yes Nausea / Vomiting: adequately controlled Pain: adequately controlled Airway Patency, RR, SpO2: stable & adequate BP & HR: stable & adequate Hydration State: stable & adequate Anesthetic Complications: no major complications apparent
== END | disposition home or self-care (01) ==
LOC: C.GI 08:52
PROVIDERS: ATTEND Internal Medicine Gastroenterology
DX: K22.2 Esophageal obstruction (principal); I48.91 Unspecified atrial fibrillation; E11.9 Type 2 diabetes mellitus without complications; Z95.5 Presence of coronary angioplasty implant and graft; J45.909 Unspecified asthma, uncomplicated; E78.00 Pure hypercholesterolemia, unspecified; I51.9 Heart disease, unspecified; I11.0 Hypertensive heart disease with heart failure; Z95.1 Presence of aortocoronary bypass graft; Z87.891 Personal history of nicotine dependence; Z88.1 Allergy status to other antibiotic agents; Z88.8 Allergy status to other drugs, medicaments and biological substances; Z91.041 Radiographic dye allergy status; Z79.84 Long term (current) use of oral hypoglycemic drugs; Z79.899 Other long term (current) drug therapy

== ENCOUNTER → 2018-01-16 | Outpatient (CLI) | payer OTHER, BC ==
[~2018-01-16] MED LIST changes: +ATV/1 PO; +FRS/40 PO; -FURO40TA3 PO; +TRAZ50TA35 PO; -[UNRECOGNIZED DRUG - OTHER] INH
[2018-01-16 17:52] LABS: MEAN CORPUSCULAR HGB CONC 33.4 g/dl (32-36)
[2018-01-16 18:02] LABS: HEMOGLOBIN 13.7 g/dL (14.0-18.0); MEAN CELL VOLUME 88.4 fL (80-100); MEAN CORPUSCULAR HEMOGLOBIN 29.5 pg (25-34); RED CELL DISTRIBUTION WIDTH CV 14.6 % (11.5-14.5); RED CELL DISTRIBUTION WIDTH SD 46.9 fL (36.4-46.3); WHITE BLOOD COUNT 9.88 K/uL (4.8-10.8)
[2018-01-16 18:31] LABS: BASO % 0.3 %; BASO ABS # 0.03 K/uL (0-0.2); EOS % 0.4 %; EOS ABS # 0.04 K/uL (0-0.5); IG# 0.03 K/uL (0.00-0.02); LYMPH % 11.2 %; LYMPH ABS # 1.11 K/uL (1.2-3.4); MEAN PLATELET VOLUME 13.8 fL (7.4-10.4); MONO % 6.4 %; MONO ABS # 0.63 K/uL (0.11-0.59); NEUT % 81.4 %; NEUT ABS # 8.04 K/uL (1.4-6.5); PLATELET COUNT 149 K/uL (130-400)
[2018-01-16 19:43] LABS: ALBUMIN 3.2 gm/dl (3.4-5.0); ALKALINE PHOSPHATASE 136 U/L (45-117); ALT/SGPT 68 U/L (12-78); AST/SGOT 20 U/L (15-37); BLOOD UREA NITROGEN 31 mg/dl (7-18); CALCIUM 8.5 mg/dl (8.5-10.1); CARBON DIOXIDE 29 mmol/L (21-32); GLUCOSE 398 mg/dl (70-99); POTASSIUM 4.1 mmol/L (3.5-5.1); SODIUM 130 mmol/L (136-145); TOTAL PROTEIN 6.6 gm/dl (6.4-8.2)
[2018-01-17 07:04] LABS: HEMOGLOBIN A1C 8.8 % (4.5-5.6)
== END | disposition home or self-care (01) ==
LOC: C.LABPVFM 14:18
PROVIDERS: ATTEND Family Medicine
DX: I10 Essential (primary) hypertension (principal); I25.10 Atherosclerotic heart disease of native coronary artery without angina pectoris; E05.90 Thyrotoxicosis, unspecified without thyrotoxic crisis or storm; E11.319 Type 2 diabetes mellitus with unspecified diabetic retinopathy without macular edema; E11.65 Type 2 diabetes mellitus with hyperglycemia; L03.90 Cellulitis, unspecified; R79.89 Other specified abnormal findings of blood chemistry

== ENCOUNTER 2018-01-27 09:42 | Inpatient (IN) | payer OTHER, BC ==
[~2018-01-27] VITALS: Ht 177.8 cm; Wt 82.1 kg
[~2018-01-27 09:42] MED LIST changes: -ATV/1 PO
[2018-01-27] MEDS ORDERED: ASPIRIN 81 MG CHEW PO STA (09:54)
--- NOTE | 2018-01-27 10:11 | EMERGENCY ROOM VISIT NOTE ---
History Report prepared by Farrah: Blanka Coronel Under the Supervision of: Dr. Gera Colby M.D. First contact with patient: 09:47 Chief Complaint: SHORTNESS OF BREATH Stated Complaint: SHORTNESS OF BREATH Nursing Triage Summary: Shortness of breath that started this morning. Pt had EGD performed Jan 14, had esophagus ballooned, was doing ok after that, then the last day or two became short of breath. Pt feels that his esophagus is becoming restricted again and he has a lot of secretions that he thinks are attributing to his shortness of breath. Was recently started on Isosorbide by his training lead on 01/23/18 and it is making him extremely lethargic "as soon as I take it I fall asleep and on top of that I just started taking insulin on 01/18/18, my sugars are better than they were. I am still taking glipizide too". Denies CP. C/o feeling weak and tired. History of Present Illness The patient is a 67 year old male who presents to the Emergency Room with complaints of constant shortness of breath beginning this morning. The patient reports a cough and nausea. He denies any chest pain or vomiting. He also denies any increased swelling in his legs. The patient had an EGD done on January 15. He has a history of CHF, CABG, edema, A-fib, hypertension and hyperlipidemia. The patient is not on any blood thinners. Source of History: patient Onset: this morning Position: other (generalized) Quality: other (shortness of breath) Timing: constant Associated Symptoms: + SOB, + nausea, No chest pain, No vomiting Review of Systems See HPI for pertinent positives and negatives. A total of ten systems were reviewed and were otherwise negative. Past Medical & Surgical Medical Problems: (1) Abnormal EKG (2) Acute exacerbation of CHF (congestive heart failure) (3) Acute GI bleeding (4) acute Gi bleeding (5) Acute respiratory failure with hypoxemia (6) Atrial Fibrillation (7) CHF (congestive heart failure) (8) CHF (congestive heart failure) (9) Diab [place] Compl, Type Ii Or Unspec Type, Not Uncntrld (10) Hyperglycemia (11) Hyperlipidemia Nec/Nos (12) Hypertension Nos (13) Hypotensive shock (14) New left bundle branch block (15) NSTEMI (non-ST elevated myocardial infarction) (16) Old Myocardial Infarct (17) Pneumonia (18) Shortness of breath (19) SOB (shortness of breath) (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, right Surgical Problems: (1) H/O cardiac catheterization (2) H/O heart artery stent (3) H/O heart bypass surgery (4) Status post double vessel coronary artery bypass Family History Cancer Diabetes mellitus FH ischemic heart disease Social History Smoking Status: Former Smoker Alcohol Use: none Drug Use: none Marital Status: in relationship Housing Status: lives alone Occupation Status: employed Current/Historical Medications Scheduled Ascorbic Acid (Ascorbic Acid), 1,000 MG PO BID B-Complex Vitamins (Vitamin B Complex), 1 TAB PO QAM Coenzyme Q10 (Ubidecarenone) (Co Q 10), 200 MG PO DAILY Furosemide (Lasix), 40 MG PO BID Glipizide (Glipizide Er), 10 MG PO BID Insulin Glargine (Basaglar Kwikpen), 10 UNITS SC HS Losartan Potassium (Losartan Potassium), 25 MG PO QAM Metoprolol Tartrate (Lopressor) (Lopressor), 50 MG PO BID Pantoprazole (Protonix), 40 MG PO BID Spironolactone (Aldactone), 25 MG PO QAM Scheduled PRN Nitroglycerin (Nitrostat), 0.4 MG UT PRN PRN for Chest Pain [Primatene Mist], 1-2 PUFFS INH DIRECTED PRN for Shortness of Breath Miscellaneous Medications Isosorbide Mononitrate (Isosorbide Mononitrate) Magnesium Oxide (Mg Supplement (Magnesium) Allergies Coded Allergies: Amoxicillin (Verified Allergy, Severe, hives swelling redness lip swelling , 01/27/18) Clavulanic Acid (Verified Allergy, Severe, hypotensive shock, 01/27/18) Iodinated Diagnostic Agents (Verified Allergy, Intermediate, HIVES, ) Prednisone (Verified Allergy, Intermediate, SHORTNESS OF BREATH, 01/27/18) as per patient Physical Exam Vital Signs Date Time Temp Pulse Resp B/P (MAP) Pulse Ox O2 Delivery O2 Flow Rate FiO2 01/27/18 13:14 102 01/27/18 12:59 87 20 110/76 98 Nasal Cannula 2.0 01/27/18 12:38 92 Nasal Cannula 2.0 01/27/18 11:47 92 Nasal Cannula 2.0 01/27/18 11:46 91 19 121/79 88 Room Air 01/27/18 10:17 91 20 109/77 95 Room Air 01/27/18 10:03 82 01/27/18 10:00 96 Room Air 01/27/18 09:44 36.4 83 18 103/69 96 Room Air 01/27/18 09:44 96 Room Air Physical Exam Physical Exam GENERAL: He is oriented to person, place, and time. He appears well-developed and well-nourished. He does not appear distressed. ____ HENT: Exam performed. Head: Normocephalic and atraumatic. Right Ear: External ear normal. No mastoid tenderness. Left Ear: External ear normal. No mastoid tenderness. Mouth/Throat: The oropharynx is clear and moist. No trismus in the jaw. No dental abscesses or uvula swelling. No oropharyngeal exudate or tonsillar abscesses. ____ EYES: Conjunctivae and EOM are normal. Pupils are equal, round, and reactive to light. Right eye exhibits no discharge. Left eye exhibits no discharge. No scleral icterus. ____ NECK: Normal range of motion. Neck supple. No JVD present. No spinous process tenderness present. No carotid bruit present. No rigidity. No tracheal deviation and normal range of motion present. No Brudzinski's sign and no Kernig 's sign noted. ____ CV: Normal rate, regular rhythm, normal heart sounds and intact distal pulses. 2+ pitting edema in bilateral lower extremities. Palpable radial pulses bue. __ __ PULM/CHEST: Effort normal and breath sounds normal. No respiratory distress. No stridor. He has no wheezes. He has no rales. Chest Wall: He exhibits no tenderness. ____ ABD: The abdomen is soft. Bowel sounds are normal. He has no distension. No mass is present. There is no tenderness. There is no rebound, no guarding, no Penaloza's sign and no tenderness at McBurney's point. Rovsig negative MUSC/SKEL: Normal range of motion. There is no peripheral edema, tenderness or deformity. LYMPH: No cervical adenopathy. ____ NEURO: He is alert and oriented to person, place, and time. He has normal strength. No cranial nerve deficit or sensory deficit. Coordination and gait normal. GCS eye subscore is 4. GCS verbal subscore is 5. GCS motor subscore is 6. Cerebellar tests wnl. ____ SKIN: 2+ pitting edema in bilateral lower extremities. Skin is warm and dry. He is not diaphoretic. ____ PSYCH: He has a normal mood and affect. He=is behavior is normal. Judgment and thought content normal. ____ Medical Decision & Procedures ER Provider Diagnostic Interpretation: Radiology results as stated below per my review and radiologist interpretation: CHEST ONE VIEW PORTABLE FINDINGS: There are postsurgical changes of a midline sternotomy. The heart is enlarged. There is radiographic evidence of congestive failure with bilateral pleural effusions. Bibasilar opacities likely representing a combination of atelectasis and focal edema.[ IMPRESSION: Radiographic evidence of congestive failure with mild pulmonary edema and bilateral pleural effusions. Electronically signed by: Valentin Werner M.D. Laboratory Results 01/27/18 10:15 Red Blood Count 4.76, Mean Corpuscular Volume 87.0, Mean Corpuscular Hemoglobin 28.8, Mean Corpuscular Hemoglobin Concent 33.1, Mean Platelet Volume 12.2, Neutrophils (%) (Auto) 85.6, Lymphocytes (%) (Auto) 6.2, Monocytes (%) (Auto) 7.3, Eosinophils (%) (Auto) 0.3, Basophils (%) (Auto) 0.2, Neutrophils # (Auto) 8.93, Lymphocytes # (Auto) 0.65, Monocytes # (Auto) 0.76, Eosinophils # (Auto) 0.03, Basophils # (Auto) 0.02 01/27/18 10:15 Test 01/27/18 10:15 White Blood Count 10.43 K/uL (4.8-10.8) Red Blood Count 4.76 M/uL (4.7-6.1) Hemoglobin 13.7 g/dL (14.0-18.0) Hematocrit 41.4 % (42-52) Mean Corpuscular Volume 87.0 fL (80-100) Mean Corpuscular Hemoglobin 28.8 pg (25-34) Mean Corpuscular Hemoglobin Concent 33.1 g/dl (32-36) Platelet Count 158 K/uL (130-400) Mean Platelet Volume 12.2 fL (7.4-10.4) Neutrophils (%) (Auto) 85.6 % Lymphocytes (%) (Auto) 6.2 % Monocytes (%) (Auto) 7.3 % Eosinophils (%) (Auto) 0.3 % Basophils (%) (Auto) 0.2 % Neutrophils # (Auto) 8.93 K/uL (1.4-6.5) Lymphocytes # (Auto) 0.65 K/uL (1.2-3.4) Monocytes # (Auto) 0.76 K/uL (0.11-0.59) Eosinophils # (Auto) 0.03 K/uL (0-0.5) Basophils # (Auto) 0.02 K/uL (0-0.2) RDW Standard Deviation 46.2 fL (36.4-46.3) RDW Coefficient of Variation 14.5 % (11.5-14.5) Immature Granulocyte % (Auto) 0.4 % Immature Granulocyte # (Auto) 0.04 K/uL (0.00-0.02) Anion Gap 7.0 mmol/L (3-11) Est Creatinine Clear Calc Drug Dose 49.7 ml/min Estimated GFR () 55.0 Estimated GFR (Non- 47.4 BUN/Creatinine Ratio 25.6 (10-20) Calcium Level 8.5 mg/dl (8.5-10.1) Magnesium Level 2.4 mg/dl (1.8-2.4) Troponin I 0.085 ng/ml (0-0.045) Pro-B-Type Natriuretic Peptide 86897 pg/ml (0-900) Beta-Hydroxybutyric Acid 1.45 mg/dL (0.2-2.81) Laboratory results reviewed by me Medications Administered Medications (Trade) Dose Ordered Sig/[place] Route Start Time Stop Time Status Last Admin Dose Admin Aspirin (Aspirin Chew) 324 mg NOW STAT PO 01/27/18 09:54 01/27/18 09:58 DC 01/27/18 10:16 324 MG Furosemide (Lasix Inj) 40 mg STK-MED ONCE .ROUTE 01/27/18 12:08 01/27/18 12:09 DC 01/27/18 12:12 40 MG ECG Per My Interpretation Indication: SOB/dyspnea Rate (beats per minute): 88 Rhythm: sinus rhythm Findings: PVC, other (MT 164, QRS 132, QTC 503) Comparison ECG Date: 01/05/18 Change: no significant change Change: REPEAT EKG: sinus rhythm 91 bpm MT 166, QRS 136, QTC 504, PVC present, no significant change from EKG done at 1005. ED Course 0958: The patient was evaluated in room B3B. A complete history and physical exam was performed. Ordered Aspirin 324 mg PO. EMR reviewed, patient had a recent echo done which showed a mildly reduced ejection fraction. 1216: Labs show an elevated creatinine level of 1.51, patient's baseline. Troponin elevated 0.085, proBNP elevated at 18,352. Patient currently reports no chest pain. While the patient was getting up to use the restroom, the nurse noted that the patient's oxygen saturation dropped to 88% on room air. Patient was started on oxygen 2 L. Patient stated his breathing was improved with oxygen. Patient's elevated troponin is thought to be due more to the CHF exacerbation, no heparin started at this point as the patient is not having any chest pain. Discussed the patient's case with Dr. Hu DEJESUS. The patient will be evaluated for further treatment and disposition. Dr. William will trend the patient's troponin. Lasix ordered in the emergency department. Medical Decision Labs show an elevated creatinine level of 1.51, patient's baseline. Troponin elevated 0.085, proBNP elevated at 18,352. Patient currently reports no chest pain. While the patient was getting up to use the restroom, the nurse noted that the patient's oxygen saturation dropped to 88% on room air. Patient was started on oxygen 2 L. Patient stated his breathing was improved with oxygen. Patient's elevated troponin is thought to be due more to the CHF exacerbation, no heparin started at this point as the patient is not having any chest pain. Discussed the patient's case with Dr. Hu DEJESUS. The patient will be evaluated for further treatment and disposition. Dr. William will trend the patient's troponin. Lasix ordered in the emergency department. Medication Reconcilliation Current Medication List: was personally reviewed by me Blood Pressure Screening Patient's blood pressure: Normal blood pressure Consults Time Called: 1210 Consulting Physician: Dr. Hu DEJESUS Returned Call: 1216 Discussed the patient's case with Dr. Hu DEJESUS. The patient will be evaluated for further treatment and disposition. Impression Primary Impression: Acute exacerbation of CHF (congestive heart failure) Scribe Attestation The scribe's documentation has been prepared under my direction and personally reviewed by me in its entirety. I confirm that the note above accurately reflects all work, treatment, procedures, and medical decision making performed by me. The chart was completed utilizing Vindi Speech voice recognition software. Grammatical errors, random word insertions, pronoun errors, and incomplete sentences are an occasional consequence of this system due to software limitations, ambient noise, and hardware issues. Any formal questions or concerns about the content, text, or information contained within the body of this dictation should be directly addressed to the physician for clarification. Departure Information Dispostion Being Evaluated By Hospitalist Referrals Aissatou Chin M.D. (PCP) Patient Instructions My [facility] Problem Qualifiers Primary Impression: Acute exacerbation of CHF (congestive heart failure) Heart failure type: unspecified Qualified Codes: I50.9 - Heart failure, unspecified
[2018-01-27 10:24] LABS: BASO % 0.2 %; BASO ABS # 0.02 K/uL (0-0.2); EOS % 0.3 %; EOS ABS # 0.03 K/uL (0-0.5); HEMATOCRIT 41.4 % (42-52); HEMOGLOBIN 13.7 g/dL (14.0-18.0); IG# 0.04 K/uL (0.00-0.02); LYMPH % 6.2 %; LYMPH ABS # 0.65 K/uL (1.2-3.4); MEAN CORPUSCULAR HEMOGLOBIN 28.8 pg (25-34); MEAN CORPUSCULAR HGB CONC 33.1 g/dl (32-36); MEAN PLATELET VOLUME 12.2 fL (7.4-10.4); MONO % 7.3 %; MONO ABS # 0.76 K/uL (0.11-0.59); NEUT % 85.6 %; NEUT ABS # 8.93 K/uL (1.4-6.5); PLATELET COUNT 158 K/uL (130-400); RED CELL DISTRIBUTION WIDTH CV 14.5 % (11.5-14.5); RED CELL DISTRIBUTION WIDTH SD 46.2 fL (36.4-46.3); WHITE BLOOD COUNT 10.43 K/uL (4.8-10.8)
[2018-01-27] MEDS ORDERED: INSU100I23 SC (11:02)
[2018-01-27] MEDS ORDERED: ISM20 (11:02)
[2018-01-27] MEDS ORDERED: MAGN250T8 (11:02)
[2018-01-27 11:03] LABS: CALCIUM 8.5 mg/dl (8.5-10.1); CREATININE 1.51 mg/dl (0.60-1.40); POTASSIUM 3.8 mmol/L (3.5-5.1)
--- NOTE | 2018-01-27 11:04 | DIAGNOSTIC IMAGING REPORT ---
CHEST ONE VIEW PORTABLE CLINICAL HISTORY: CHEST PAIN SHORTNESS OF BREATH COMPARISON STUDY: January 04, 2008 FINDINGS: There are postsurgical changes of a midline sternotomy. The heart is enlarged. There is radiographic evidence of congestive failure with bilateral pleural effusions. Bibasilar opacities likely representing a combination of atelectasis and focal edema.[ IMPRESSION: Radiographic evidence of congestive failure with mild pulmonary edema and bilateral pleural effusions. Electronically signed by: Valentin Werner M.D. 01/27/2018 11:03 AM Dictated Date/Time: 01/27/2018 11:02 AM
[2018-01-27] MEDS ORDERED: FUROSEMIDE 40 MG/4 ML VIAL ONE (12:08)
[2018-01-27] MEDS ORDERED: FUROSEMIDE INJ 40 MG in SYRINGE 0 ML IV ONE (12:15)
[2018-01-27 12:38] VITALS: O2SAT 92; BMI 26.7
[2018-01-27] MEDS ORDERED: DEXTROSE 50% 50 ML SYR IV PRN (13:30)
[2018-01-27] MEDS ORDERED: ALUMINUM/MAGNESIUM/SIMETH (MAALOX MAX) 30 ML UDC PO PRN (13:30)
[2018-01-27] MEDS ORDERED: GLUCOSE 40% GEL 15 GM TUBE PO PRN (13:30)
[2018-01-27] MEDS ORDERED: ACETAMINOPHEN 325 MG TAB PO PRN (13:30)
[2018-01-27] MEDS ORDERED: GLUCOSE 10 TABS/TUBE PO PRN (13:30)
[2018-01-27] MEDS ORDERED: ZOLPIDEM TARTRATE 5 MG TAB PO PRN ×2 (13:30)
[2018-01-27] MEDS ORDERED: POLYETHYLENE (MIRALAX) 17 GM PACK PO PRN (13:30)
[2018-01-27] MEDS ORDERED: GLUCAGON FOR INJ 1 MG VIAL SQ PRN (13:30)
[2018-01-27] MEDS ORDERED: MAGNESIUM HYDROXIDE SUSP 30 ML UDC PO PRN (13:30)
[2018-01-27] MEDS ORDERED: NITROGLYCERIN 0.4 MG SL PER TAB CHARGE UT PRN (13:30)
[2018-01-27] MEDS ORDERED: NITROGLYCERIN 0.4 MG SL PER TAB CHARGE SL PRN (13:30)
--- NOTE | 2018-01-27 14:00 | History and Physical ---
History & Physical Date & Time of Service: Jan 27, 2018 at 13:33 Chief Complaint: Shortness Of Breath Primary Care Physician: Aissatou Chin M.D. 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 Patient presented to the ED with progressive worsening shortness of breath and generalized weakness. His shortness of breath got worse this morning, associated with some dry cough and nausea. Denies any fever chills denies any vomiting. Denies any chest pain or abdominal pain. He stated that his mouth has been very dry slightly itchy. Patient is on Lasix 40 mg p.o. twice daily, spironolactone, losartan, beta- citlali. Since patient upper GI bleed in December, he has not been taking any aspirin or Plavix. He also declined anticoagulation for his atrial fibrillation Family History Cancer Diabetes mellitus FH ischemic heart disease Social History Smoking Status: Former Smoker Drug Use: none Marital Status: in relationship Housing status: lives alone Occupational Status: employed Immunizations History of Influenza Vaccine: No History of Tetanus Vaccine?: No History of Pneumococcal: No History of Hepatitis B Vaccine: No Allergies Coded Allergies: Amoxicillin (Verified Allergy, Severe, hives swelling redness lip swelling , 01/27/18) Clavulanic Acid (Verified Allergy, Severe, hypotensive shock, 01/27/18) Iodinated Diagnostic Agents (Verified Allergy, Intermediate, HIVES, ) Prednisone (Verified Allergy, Intermediate, SHORTNESS OF BREATH, 01/27/18) as per patient Home Medications Scheduled Ascorbic Acid (Ascorbic Acid), 1,000 MG PO BID B-Complex Vitamins (Vitamin B Complex), 1 TAB PO QAM Coenzyme Q10 (Ubidecarenone) (Co Q 10), 200 MG PO DAILY Furosemide (Lasix), 40 MG PO BID Glipizide (Glipizide Er), 10 MG PO BID Insulin Glargine (Basaglar Kwikpen), 10 UNITS SC HS Losartan Potassium (Losartan Potassium), 25 MG PO QAM Metoprolol Tartrate (Lopressor) (Lopressor), 50 MG PO BID Pantoprazole (Protonix), 40 MG PO BID Spironolactone (Aldactone), 25 MG PO QAM Scheduled PRN Nitroglycerin (Nitrostat), 0.4 MG UT PRN PRN for Chest Pain [Primatene Mist], 1-2 PUFFS INH DIRECTED PRN for Shortness of Breath Miscellaneous Medications Isosorbide Mononitrate (Isosorbide Mononitrate) Magnesium Oxide (Mg Supplement (Magnesium) Review of Systems Review of system Constitutional: No fever / no chills / no sweats /admits to generalized weakness and fatigue Eyes: no blurring of vision / no eye pain / no discharge / no redness ENT: no hearing loss / no epistaxis /no swallowing problems Respiratory: Some dry cough cough / no wheezing /significant for shortness of breath/ no hemoptysis Cardiovascular: no Chest pain / no lower extremity edema / no palpitation Abdomen: no pain / no nausea / no vomiting / no constipation Musculoskeletal: no joint pain / no muscle pain / no joint swelling Genitourinary: no dysuria / no incontinence / no urinary retention Neurologic: no focal weakness / no numbness/tingling / no ataxia Psychiatric: no depression symptoms / no anxiety / no insomnia Endocrine: no excessive thirst / no excessive urination Hematologic: no abnormal bleeding / no bruising / no LN swelling Skin: No rash / no pallor Physical Exam Vital Signs Date Time Temp Pulse Resp B/P (MAP) Pulse Ox O2 Delivery O2 Flow Rate FiO2 01/27/18 13:14 102 01/27/18 12:59 87 20 110/76 98 Room Air 01/27/18 12:38 92 Nasal Cannula 2.0 01/27/18 11:47 92 Nasal Cannula 2.0 01/27/18 11:46 91 19 121/79 88 Room Air 01/27/18 10:17 91 20 109/77 95 Room Air 01/27/18 10:03 82 01/27/18 10:00 96 Room Air 01/27/18 09:44 36.4 83 18 103/69 96 Room Air 01/27/18 09:44 96 Room Air Physical examination General patient appears to be comfortable, not in acute distress HEENT: Atraumatic , normocephalic /no jaundice /no pallor /anicteric /no dry mucous membrane /normal external ear inspection Neck: Supple /no swelling /central trach Heart: S1/S2 normal/regular rate and rhythm/3/6 systolic murmur noted, possible gallop Lungs: Decreased air entry bilaterally, bilateral basal rales /normal chest with expansion/no rhonchi/no wheezing/no use of accessory muscles of respiration Abdomen: Soft/nontender/no guarding/no rebound/no organomegaly/no pulsatile mass Musculoskeletal: No swelling/no edema/no tenderness/normal range of motion Neuro exam: Awake alert oriented 3/cranial nerves II through XII appear to be intact/sensation intact/moves all extremities/no abnormal movements Psychiatric evaluation: No depressed mood/normal affect Skin: No rash on exposed skin area/no erythema Extremity: Normal pulse/+2 pitting edema/no clubbing or cyanosis Endocrine/lymphatic: No obvious lymphadenopathy /no lymphedema Diagnostics Laboratory Results Results Past 24 Hours Test 01/27/18 10:15 Range/Units White Blood Count 10.43 4.8-10.8 K/uL Red Blood Count 4.76 4.7-6.1 M/uL Hemoglobin 13.7 14.0-18.0 g/dL Hematocrit 41.4 42-52 % Mean Corpuscular Volume 87.0 80-100 fL Mean Corpuscular Hemoglobin 28.8 25-34 pg Mean Corpuscular Hemoglobin Concent 33.1 32-36 g/dl Platelet Count 158 130-400 K/uL Mean Platelet Volume 12.2 7.4-10.4 fL Neutrophils (%) (Auto) 85.6 % Lymphocytes (%) (Auto) 6.2 % Monocytes (%) (Auto) 7.3 % Eosinophils (%) (Auto) 0.3 % Basophils (%) (Auto) 0.2 % Neutrophils # (Auto) 8.93 1.4-6.5 K/uL Lymphocytes # (Auto) 0.65 1.2-3.4 K/uL Monocytes # (Auto) 0.76 0.11-0.59 K/uL Eosinophils # (Auto) 0.03 0-0.5 K/uL Basophils # (Auto) 0.02 0-0.2 K/uL RDW Standard Deviation 46.2 36.4-46.3 fL RDW Coefficient of Variation 14.5 11.5-14.5 % Immature Granulocyte % (Auto) 0.4 % Immature Granulocyte # (Auto) 0.04 0.00-0.02 K/uL Sodium Level 132 136-145 mmol/L Potassium Level 3.8 3.5-5.1 mmol/L Chloride Level 95 98-107 mmol/L Carbon Dioxide Level 30 21-32 mmol/L Anion Gap 7.0 3-11 mmol/L Blood Urea Nitrogen 39 7-18 mg/dl Creatinine 1.51 0.60-1.40 mg/dl Est Creatinine Clear Calc Drug Dose 49.7 ml/min Estimated GFR () 55.0 Estimated GFR (Non- 47.4 BUN/Creatinine Ratio 25.6 10-20 Random Glucose 323 70-99 mg/dl Calcium Level 8.5 8.5-10.1 mg/dl Magnesium Level 2.4 1.8-2.4 mg/dl Troponin I 0.085 0-0.045 ng/ml Pro-B-Type Natriuretic Peptide 44174 0-900 pg/ml Beta-Hydroxybutyric Acid 1.45 0.2-2.81 mg/dL Impression Assessment and Plan 67 year old man with complicated past medical history, patient had CABG in 2005 followed by multiple cardiac catheterization multiple stents, he also has paroxysmal atrial fibrillation not on any anticoagulation due to esophageal ulcers and upper GI bleed, patient also has intermittent left bundle branch block, 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 Patient presented to the ED with progressive worsening shortness of breath and generalized weakness. Noticed to have hypoxic respiratory failure Assessment Acute respiratory failure with hypoxemia secondary to below Acute on chronic combined diastolic/systolic congestive heart failure CAD status post CABG and multiple stents in the past Intermittent left bundle branch block Atrial fibrillation not on any anticoagulation due to GI bleed Esophageal ulcers/massive GI bleed/esophageal stricture Oral thrush Hypertension Generalized weakness/fatigue Daytime somnolence and symptoms suggestive of obstructive sleep apnea plan: admit to telemetry obtain serial cardiac enz NTG SL/topical prn cp consult belt maker pain management repeat EKG prn chest pain Check hemoglobin A1c/lipids to stratify patient risk factors I/Os We will hold off 2Decho as we have a recent one within the last 2 months gentle diuresis, with Lasix 40 mg IV twice daily, monitor renal function during diuresis Decrease metoprolol dose by half, hold losartan and decrease the Aldactone dose by half during the use of IV Lasix to avoid hypotension Potassium supplement added, it can be stopped after restarting losartan and Aldactone. control blood pressure, afterload and preload DVT prophylaxis Discussed with patient obtaining sleep study as an outpatient. Also discussed with him the importance of having heparin as DVT prophylaxis for now. Patient will need GI consult for clearance to start aspirin/Plavix or anticoagulation for A. fib. Advanced Directives Existing Living Will: Yes Existing Power of Budget And Policy Analyst: Yes Resuscitation Status VTE Prophylaxis Will order VTE Prophylaxis: Yes
[2018-01-27 14:34] VITALS: BP 106/72; PULSE 85; TEMP 36.5; O2SAT 99
--- NOTE | 2018-01-27 14:59 | Medical Consult ---
Consultation Note Date of Service Jan 27, 2018. Consultation Note Chart reviewed. He has severe ischemic cardiomyopathy. He had a GIB requiring 3 U PRBC in Nov due to esophageal ulcer. He had a distal esophageal stricture that was dilated, most recently to 17 mm on 01/14. He did not have any source of UGIB on recent EGD, and no evidence of GIB at present. There does not appear to be any contra-indication for antiplt or anti coag therapy; moreover, he is likely at high risk for ischemic event if these meds are held. He is at high risk for pill esophagitis - please have pt remain upright with pills, and for 30 mins afterwards. Please call with questions.
[2018-01-27 15:21] VITALS: BP 108/74; PULSE 86; TEMP 36.5; O2SAT 99
[2018-01-27] MEDS: FUROSEMIDE INJ 40 MG in SYRINGE 0 ML IV SCH (16:33)
[2018-01-27] MEDS: NYSTATIN SUSP 500,000 U/5 ML UDC PO SCH ×2 (16:33→20:21)
[2018-01-27] MEDS: INSULIN ASPART 100 UNITS/ML 3 ML PEN SC SCH ×2 (16:42→20:17)
[2018-01-27 19:11] VITALS: BP 110/73; PULSE 91; TEMP 36.6; O2SAT 98
[2018-01-27] MEDS: PANTOprazole SOD 40 MG TAB PO SCH (20:21)
[2018-01-27] MEDS: POTASSIUM CHLORIDE 10 MEQ TABCR PO SCH (20:22)
[2018-01-27] MEDS: METOPROLOL TARTRATE 25 MG TAB PO SCH (20:22)
[2018-01-27] MEDS: INSULIN GLARGINE SOLOSTAR 100 UNITS/ML 3 ML PEN SC SCH (20:23)
[2018-01-27] MEDS: HEPARIN SOD 5000 UNIT/0.5 ML CARP SQ SCH (20:24)
[2018-01-27 23:37] VITALS: BP 111/74; PULSE 92; TEMP 36.8; O2SAT 95
[2018-01-28 03:28] VITALS: BP 117/78; PULSE 95; TEMP 36.5; O2SAT 94
[2018-01-28 07:14] LABS: BASO % 0.5 %; BASO ABS # 0.05 K/uL (0-0.2); EOS % 0.5 %; EOS ABS # 0.05 K/uL (0-0.5); HEMATOCRIT 42.2 % (42-52); HEMOGLOBIN 13.3 g/dL (14.0-18.0); IG# 0.03 K/uL (0.00-0.02); LYMPH % 12.1 %; LYMPH ABS # 1.14 K/uL (1.2-3.4); MEAN CELL VOLUME 87.2 fL (80-100); MEAN CORPUSCULAR HEMOGLOBIN 27.5 pg (25-34); MEAN CORPUSCULAR HGB CONC 31.5 g/dl (32-36); MEAN PLATELET VOLUME 12.5 fL (7.4-10.4); MONO % 6.6 %; MONO ABS # 0.62 K/uL (0.11-0.59); NEUT ABS # 7.51 K/uL (1.4-6.5); PLATELET COUNT 152 K/uL (130-400); RED CELL DISTRIBUTION WIDTH CV 14.5 % (11.5-14.5); RED CELL DISTRIBUTION WIDTH SD 46.2 fL (36.4-46.3)
[2018-01-28 07:36] LABS: ALBUMIN 2.9 gm/dl (3.4-5.0); CALCIUM 8.7 mg/dl (8.5-10.1); CREATININE 1.47 mg/dl (0.60-1.40); POTASSIUM 3.7 mmol/L (3.5-5.1)
[2018-01-28 07:40] LABS: TOTAL PROTEIN 6.3 gm/dl (6.4-8.2)
--- NOTE | 2018-01-28 07:44 | DIAGNOSTIC IMAGING REPORT ---
CHEST ONE VIEW PORTABLE CLINICAL HISTORY: Congestive heart failure. COMPARISON STUDY: Chest CT December 30, 2017 and chest radiograph January 27, 2018. FINDINGS: There are median sternotomy wires. No pneumothorax is noted. Small to moderate left pleural effusion is noted with a trace right pleural effusion. Lung volumes are diminished. Pulmonary edema has slightly improved. Left basilar opacity persists. IMPRESSION: 1. Persistent, but mildly improved, pulmonary edema. 2. Small to moderate left and trace right pleural effusions. 3. Left basilar opacity which favors atelectasis although pneumonia could appear similar. Electronically signed by: Vishnu eJrez M.D. 01/28/2018 7:43 AM Dictated Date/Time: 01/28/2018 7:42 AM
[2018-01-28 07:49] VITALS: BP 136/59; PULSE 100; TEMP 36.4; O2SAT 91
[2018-01-28] MEDS: INSULIN ASPART 100 UNITS/ML 3 ML PEN SC SCH ×4 (08:00→20:53)
[2018-01-28] MEDS: FUROSEMIDE INJ 40 MG in SYRINGE 0 ML IV SCH ×2 (08:04→17:24)
[2018-01-28] MEDS: PANTOprazole SOD 40 MG TAB PO SCH ×2 (08:04→20:50)
[2018-01-28] MEDS: METOPROLOL TARTRATE 25 MG TAB PO SCH ×2 (08:05→20:50)
[2018-01-28] MEDS: POTASSIUM CHLORIDE 10 MEQ TABCR PO SCH ×2 (08:05→20:50)
[2018-01-28] MEDS: ISOSORBIDE MONONITRATE 30 MG TABCR PO SCH (08:05)
[2018-01-28] MEDS: NYSTATIN SUSP 500,000 U/5 ML UDC PO SCH ×4 (08:06→20:50)
--- NOTE | 2018-01-28 08:10 | Clinical Documentation Query ---
ASHLEY Varela : CLINICAL DOCUMENTATION QUERY Patient is a 67 year old male admitted for evaluation and treatment of acute on chronic combined systolic and diastolic CHF. Admission BUN, creatinine, and estimated GFR were 39 mg/dl, 1.51 mg/dl, and 47 ml/min. There is no documentation of DANIEL. Historical EMR documentation notes CKD stage 3. Please clarify as clinically appropriate. Thank you. In your clinical opinion is this patient being managed for: ( ) Chronic kidney disease, stage 3 ( ) Not Agree ( ) Other explanation of clinical findings (Please Explain) ( ) Unable to determine (Please Define) ( ) Need to Discuss The medical record reflects the following clinical findings, treatment, and risk factors. Clinical Indicators: As above Treatment: Serial chemistries Risk Factors: Age, chronic combined systolic and diastolic CHF, CAD s/p CABG, paroxysmal atrial fibrillation, DM, medications Please clarify and document your clinical opinion in the progress notes and discharge summary. Terms such as "probable", "suspected", "likely", "questionable", "possible", or "still to be ruled out" are acceptable. IF IN AGREEMENT, YOU MUST DOCUMENT ABOVE DIAGNOSTIC STATEMENT IN DAILY PROGRESS NOTES AND DISCHARGE SUMMARY. This document is not part of the patient's record. Thank You, Kong Garrison, RN [phone]
[2018-01-28] MEDS: HEPARIN SOD 5000 UNIT/0.5 ML CARP SQ SCH ×2 (08:13→20:48)
[2018-01-28] MEDS ORDERED: SPIRONOLACTONE 25 MG TAB PO SCH (09:00)
[2018-01-28] MEDS ORDERED: CLOPIDOGREL BISULFATE 75 MG TAB PO ONE (09:45)
[2018-01-28 11:30] VITALS: BP 115/77; PULSE 89; TEMP 37; O2SAT 98
[2018-01-28 15:12] VITALS: BP 109/73; PULSE 89; TEMP 36.7; O2SAT 92
--- NOTE | 2018-01-28 16:44 | Hospitalist Progress Note ---
Hospitalist Progress Note Date of Service Jan 28, 2018. (Tereza Gil ., NICOLE) Subjective Pt evaluation today including: conversation w/ patient, physical exam, chart review, lab review, review of inpatient medication list Voiding: no voiding problems Mr. Cook is unhappy about being in the hospital. He does not have any dyspnea or chest pain, per nursing he is moving around the room without difficulty. ROS Constitutional: no chills, aches, sweats or fever Respiratory: no sob,cough, sputum, or wheezing Cardiac: no chest pain, palpitations, edema, orthopnea or lightheadedness GI: no abdominal pain, nausea, vomiting, diarrhea or constipation : no dysuria or hesitancy Extremities: no joint pain or weakness Skin: no rash All other systems reviewed and negative (Tereza Gil .NICOLE) Medications Medications Administered Medications (Trade) Dose Ordered Sig/[place] Route Start Time Stop Time Status Last Admin Dose Admin Aspirin (Aspirin Chew) 324 mg NOW STAT PO 01/27/18 09:54 01/27/18 09:58 DC 01/27/18 10:16 324 MG Furosemide (Lasix Inj) 40 mg STK-MED ONCE .ROUTE 01/27/18 12:08 01/27/18 12:09 DC 01/27/18 12:12 40 MG Insulin Glargine (Lantus Solostar Pen) 10 units HS SC 01/27/18 21:00 02/26/18 20:59 01/27/18 20:23 10 UNITS Isosorbide Mononitrate (Imdur Ext Rel Tab) 30 mg DAILY PO 01/28/18 09:00 02/27/18 08:59 01/28/18 08:05 30 MG Metoprolol Tartrate (Lopressor Tab) 12.5 mg BID PO 01/27/18 21:00 02/26/18 20:59 01/28/18 08:05 12.5 MG Spironolactone (Aldactone Tab) 12.5 mg QAM PO 01/28/18 09:00 02/27/18 08:59 01/28/18 08:04 12.5 MG Pantoprazole Sodium (Protonix Tab) 40 mg BID PO 01/27/18 21:00 02/26/18 20:59 01/28/18 08:04 40 MG Heparin Sodium (Porcine) (Heparin Sq 5000 Unit/0.5ml) 5,000 unit Q12 SQ 01/27/18 21:00 02/26/18 20:59 01/27/18 20:24 5,000 UNIT Acetaminophen (Tylenol Tab) 650 mg Q4H PRN PO 01/27/18 13:30 02/26/18 13:29 01/27/18 22:15 650 MG Insulin Aspart (novoLOG ASPART) SLIDING SCALE If C... ACHS SC 01/27/18 16:00 02/26/18 15:59 01/28/18 12:55 7 UNITS Potassium Chloride (Klor-Con M10) 10 meq BID PO 01/27/18 21:00 02/26/18 20:59 01/28/18 08:05 10 MEQ Furosemide 40 mg/ Syringe 4 ml @ 4 mls/min BID17 IV 01/27/18 17:00 02/26/18 16:59 01/28/18 08:04 4 MLS/MIN Nystatin (Mycostatin Susp) 5 ml QID PO 01/27/18 17:00 02/06/18 16:59 01/28/18 12:55 5 ML (Tereza Gil CRNP) Objective Vital Signs Date Time Temp Pulse Resp B/P (MAP) Pulse Ox O2 Delivery O2 Flow Rate FiO2 01/28/18 15:12 36.7 89 22 109/73 (85) 92 Room Air 01/28/18 12:00 Room Air 01/28/18 11:30 37.0 89 18 115/77 (90) 98 01/28/18 08:56 Room Air 01/28/18 07:49 36.4 100 18 136/59 (84) 91 01/28/18 04:00 Room Air 01/28/18 03:28 36.5 95 18 117/78 (91) 94 Room Air 01/28/18 00:00 Room Air 01/27/18 23:37 36.8 92 18 111/74 (86) 95 Room Air 01/27/18 20:00 Room Air 01/27/18 19:11 36.6 91 20 110/73 (85) 98 Room Air (Tereza Gil CRNP) Physical Exam Notes: General: no distress Eyes: normal inspection, PERLL Respiratory: chest non tender, clear to auscultation, diminished left base, no respiratory distress, no accessory muscle use Cardiac: regular rate and rhythm, no rub or gallop, no murmur, no edema, no jvd GI/: active bowel sounds, no abd pain or tenderness, soft, non distended Extremities: normal range of motion, normal strength, non tender Neuro/Psych: alert and oriented x 3, normal mood and affect Skin: normal color, dry (Tereza Gil, NICOLE) Laboratory Results Last 24 Hours Test 01/27/18 19:15 01/27/18 20:13 01/28/18 01:00 01/28/18 06:55 Troponin I 0.079 ng/ml 0.076 ng/ml Bedside Glucose 75 mg/dl 176 mg/dl Test 01/28/18 07:00 01/28/18 11:10 01/28/18 13:34 White Blood Count 9.40 K/uL Red Blood Count 4.84 M/uL Hemoglobin 13.3 g/dL Hematocrit 42.2 % Mean Corpuscular Volume 87.2 fL Mean Corpuscular Hemoglobin 27.5 pg Mean Corpuscular Hemoglobin Concent 31.5 g/dl Platelet Count 152 K/uL Mean Platelet Volume 12.5 fL Neutrophils (%) (Auto) 80.0 % Lymphocytes (%) (Auto) 12.1 % Monocytes (%) (Auto) 6.6 % Eosinophils (%) (Auto) 0.5 % Basophils (%) (Auto) 0.5 % Neutrophils # (Auto) 7.51 K/uL Lymphocytes # (Auto) 1.14 K/uL Monocytes # (Auto) 0.62 K/uL Eosinophils # (Auto) 0.05 K/uL Basophils # (Auto) 0.05 K/uL RDW Standard Deviation 46.2 fL RDW Coefficient of Variation 14.5 % Immature Granulocyte % (Auto) 0.3 % Immature Granulocyte # (Auto) 0.03 K/uL Sodium Level 134 mmol/L Potassium Level 3.7 mmol/L Chloride Level 98 mmol/L Carbon Dioxide Level 26 mmol/L Anion Gap 10.0 mmol/L Blood Urea Nitrogen 38 mg/dl Creatinine 1.47 mg/dl Est Creatinine Clear Calc Drug Dose 51.0 ml/min Estimated GFR () 56.8 Estimated GFR (Non- 49.0 BUN/Creatinine Ratio 25.9 Random Glucose 180 mg/dl Calcium Level 8.7 mg/dl Magnesium Level 2.3 mg/dl Total Bilirubin 0.8 mg/dl Aspartate Amino Transf (AST/SGOT) 68 U/L Alanine Aminotransferase (ALT/SGPT) 100 U/L Alkaline Phosphatase 205 U/L Troponin I 0.058 ng/ml 0.048 ng/ml Total Protein 6.3 gm/dl Albumin 2.9 gm/dl Globulin 3.4 gm/dl Albumin/Globulin Ratio 0.9 Triglycerides Level 62 mg/dl Cholesterol Level 162 mg/dl HDL Cholesterol 46 mg/dl LDL Cholesterol, Calculated 104 mg/dl VLDL Cholesterol, Calculated 12 mg/dl Cholesterol/HDL Ratio 3.5 Bedside Glucose 235 mg/dl (Tereza Gil CRNP) Assessment and Plan Mr. Cook is a 67 year old man here for CHF exacerbation Acute hypoxic respiratory failure with acute on chronic diastolic/systolic congestive HF/HTN/CAD/A.fib - serial troponins peaked at 0.079 and trended down - repeat chest xray shows improving pulmonary congestion - ambulating halls with nurse - tolerating though moving very slowly - consult cardiology - EKG with chest pain - Had recent echocardiogram that showed EF 30% - Diurese with lasix 40 mg IV BID - continue half home dose spironolactone, increase metoprolol to 25 mg bid from 12.5 - takes 50 mg bid at home - bp have been acceptable but patient slightly tachycardic - Cleared by GI to restart antiplatelets - discussed risks and benefits to restart Plavix, patient refused CKD III - baseline appears to be 1.1-1.4 - at 1.47 today - will continue to hold losartan for now - prp am DM - recent A1c 8.8 - continue sliding scale, lantus, accuchecks Oral thrush - continue nystatin DVT proph heparin subq Full code. (Tereza Gil CRNP) Supervising Note Dr. Bradford I performed a history and physical examination on the patient. I reviewed above note and agree with it. I discussed plan with APC and patient. During my face to face encounter with the patient, I answered all of the patient's questions. Spironolactone will be increased back to 25 mg IN am. Patient again refused to take plavix at outpatient. This was reiterated by Cardiology. Will check creatinine in AM Will likely restart his ARB in AM (Johny Bradford M.D.)
[2018-01-28 18:54] VITALS: BP 111/70; PULSE 96; TEMP 36.6; O2SAT 97
--- NOTE | 2018-01-28 19:18 | Cardiology Consultation ---
Cardiology Consultation Date of Consultation: Jan 28, 2018 History of Present Illness Enmanuel Cook is a 67 year old male seen in cardiology consultation per the request of Dr Flaco Dickson for cardiology recommendations for the management of congestive heart failure. The patient is a complex past and recent cardiac history as delineated below. He most recently been seen in outpatient cardiology follow-up by Dr. Landa of our practice on 01/23/18 at which time it was felt that his volume status was stable. He did describe mild to recent mild chest discomfort and therefore isosorbide mononitrate was added to his medication list. Patient felt that he had progressive ankle edema and shortness of breath this prompted emergency room evaluation yesterday and ultimate admission to the [facility] hospitalist service. He has had serial troponin measurements with mild but blunt elevation in the range of 0.085, 0.079, 0.076 0.058 and 0.048 ng/ml consistent with his past history of congestive heart failure. He has received 4 doses of IV furosemide 40 mg, and had 1.3 L of urine output yesterday. His intake and output summary is not up-to-date on his current vital signs, but he notes feeling subjectively better. At home he was taking furosemide 40 mg, 2 tablets daily. History Past Medical History: 1. Diffuse coronary artery disease status post CABG July 2006 2 with HAWKINS to LAD and saphenous vein graft to the obtuse marginal 2. Multiple PCI's to the ramus intermedius 3. Most recent cardiac catheterization August 30, 2017 at [facility] performed by Dr. Casper documenting 100% occlusion of the LAD, HAWKINS to LAD was without focal stenosis, the left circumflex obtuse marginal 1 was noted to have a 100% stenosis, vein graft to obtuse marginal 100% stenosis, right coronary artery with 100% stenosis and fills distally by collaterals. Fractional flow reserve of the HAWKINS to LAD showed a mild kink in the HAWKINS graft that was not significant by fractional flow reserve testing. However when FFR was performed distal to the HAWKINS to LAD anastomosis an abnormal reading was determined. There is no focal stenosis that could be seen angiographically and therefore ongoing medication management was recommended. No targets for PCI were identified, the left ventricular end-diastolic pressure was elevated at that time at 30 mmHg 4. 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 History of intermittent left bundle branch block 6. past history of moderate to severe mitral regurgitation, improved with medication therapy 7. Paroxysmal atrial fibrillation, on Coumadin due to past bleeding problems and patient preference A. Diabetes 9. Hypertension 10. Dyslipidemia 11. Nonadherence 11. Recent hospital stay from late November 2017, early December 2017 for CHF decompensation, complicated by upper GI bleed with findings of esophageal ulcers. The patient has since had multiple endoscopies, and recent esophageal stricture dilatation Past Surgical History: Procedures as outlined above Social History: No significant alcohol use. Lorenz. Family History: Mother had a history of breast cancer Brother with premature coronary artery disease Review Of Systems See above for pertinent positives & negatives. A total of 10 systems reviewed and were otherwise negative. Allergies Coded Allergies: Amoxicillin (Verified Allergy, Severe, hives swelling redness lip swelling , 01/27/18) Clavulanic Acid (Verified Allergy, Severe, hypotensive shock, 01/27/18) Iodinated Diagnostic Agents (Verified Allergy, Intermediate, HIVES, ) Prednisone (Verified Allergy, Intermediate, SHORTNESS OF BREATH, 01/27/18) as per patient Medications Reported Home Medications Medications Dose Route/Sig Max Daily Dose Days Date Category Dose Instructions Basaglar Kwikpen (Insulin Glargine) 100 Unit/Ml Inj 10 Units SC HS 01/27/18 Reported Isosorbide Mononitrate 20 Mg Tab 01/27/18 Reported Magnesium (Magnesium Oxide (Mg Supplement) 250 Mg Tab 01/27/18 Reported Lasix (Furosemide) 40 Mg Tab 40 Mg PO BID 01/14/18 Reported [Primatene Mist] 1-2 Puffs INH DIRECTED PRN 01/14/18 Reported Protonix (Pantoprazole Sodium) 20 Mg Tab 40 Mg PO BID 01/08/18 Reported Aldactone (Spironolactone) 25 Mg Tab 25 Mg PO QAM 01/04/18 Reported Lopressor (Metoprolol Tartrate) 50 Mg Tab 50 Mg PO BID 12/29/17 Reported do not take if b/p less than 105, heart rate less than 60, Co Q 10 (Coenzyme Q10 (Ubidecarenone)) 100 Mg Cap 200 Mg PO DAILY 12/16/17 Reported Losartan Potassium 25 Mg Tab 25 Mg PO QAM 12/16/17 Reported Nitrostat (Nitroglycerin) 0.4 Mg Sub 0.4 Mg UT PRN PRN 08/10/17 Reported Vitamin B Complex (B-Complex Vitamins) 1 Tab Tab 1 Tab PO QAM 08/10/17 Reported Ascorbic Acid 1,000 Mg Tab 1,000 Mg PO BID 08/10/17 Reported Glipizide Er (Glipizide) 10 Mg Tab 10 Mg PO BID 08/10/17 Reported Physical Exam Vital Signs (Last 8hrs): Last 8 Hrs Date Time Temp Pulse Resp B/P (MAP) Pulse Ox O2 Delivery O2 Flow Rate FiO2 01/28/18 16:00 Room Air 01/28/18 15:12 36.7 89 22 109/73 (85) 92 Room Air 01/28/18 12:00 Room Air 01/28/18 11:30 37.0 89 18 115/77 (90) 98 General Appearance: Alert and Oriented x3. NAD. Head: Normocephalic Atraumatic. Eyes: PERRLA, EOMI, conjunctiva and sclera clear Neck: Supple. No carotid bruits noted. No JVD. No HJD. Respiratory: Mildly decreased breath sounds in the bases Cardiovascular: Reg rate and rhythm. S1 and S2 noted. No murmurs, rubs, gallops. PMI non displace. Abdomen: Normal bowel sounds, soft nontender. no abdominal bruits. Extremities: 1+ ankle edema Neuro: No focal deficits. Psychiatric: Normal affect. Data Last Resulted 01/28/18 07:00 Red Blood Count 4.84, Mean Corpuscular Volume 87.2, Mean Corpuscular Hemoglobin 27.5, Mean Corpuscular Hemoglobin Concent 31.5, Mean Platelet Volume 12.5, Neutrophils (%) (Auto) 80.0, Lymphocytes (%) (Auto) 12.1, Monocytes (%) (Auto) 6.6, Eosinophils (%) (Auto) 0.5, Basophils (%) (Auto) 0.5, Neutrophils # (Auto) 7.51, Lymphocytes # (Auto) 1.14, Monocytes # (Auto) 0.62, Eosinophils # (Auto) 0.05, Basophils # (Auto) 0.05 Last Resulted 01/28/18 07:00 Past 24 Hours Test 01/27/18 19:15 01/28/18 01:00 01/28/18 07:00 01/28/18 13:34 Range/Units Troponin I 0.079 *H 0.076 *H 0.058 *H 0.048 *H 0-0.045 ng/ml Imaging: Chest x-ray performed this morning 01/28/18, with report by radiology describing persistent but mildly improved pulmonary edema, small to moderate left and trace right pleural effusions EKG performed 01/27/2018 revealed sinus rhythm with frequent PVCs 91 bpm, IVCD, age-indeterminate anterior infarction pattern noted with poor R-wave progression in leads V1 to V6, T-wave abnormality suggestive of possible ischemia compared to prior EKG tracings dating back to 2014, the lateral ST segment changes are chronic Telemetry reviewed: Sinus rhythm, occasional PVC Assessment & Plan Impression: 67-year-old male 1. Acute decompensation, chronic systolic heart failure, due to ischemic cardiomyopathy 2. Stage III chronic kidney disease, stable 3. Recent gastrointestinal bleeding due to esophageal ulcer requiring 3 units of packed red blood cells, and 24 hours of ventilator support for airway stabilization. He subsequently had an esophageal stricture that was dilated most recently to 17 mm on 01/14/18 4. Long-standing history of diffuse coronary heart disease, not amenable to revascularization on most recent cardiac catheterization August 2017 Discussion/recommendations: The patient has long-standing history of medication nonadherence. He is currently not on anticoagulation despite his history of paroxysmal atrial fibrillation due to long-standing preference by the patient to not be on anticoagulation. Looking back, at the time of his admission in November, when he was admitted for congestive heart failure, and then developed gastrointestinal bleeding while on IV heparin, he was not on aspirin or clopidogrel at that time when he was admitted. I discussed his antiplatelet medications with him at length. He states he discontinued clopidogrel in 2013 after his most recent coronary stents were found to be occluded. He states he discontinued it because he figured it was not helping anyway. He states that he took aspirin "some this year "meaning within the last calendar year, but he has not been on it recently within the last few months. My personal recommendation would be that his bleeding risk is prohibitively high and therefore I would avoid systemic anticoagulation. I would recommend antiplatelet therapy with monotherapy with either aspirin or clopidogrel. My bias is that clopidogrel perhaps would be better given his risk of potential pill esophagitis. The patient however has already declined to take this medication. We had a long discussion about this. The patient accepts the risk of developing heart attack, and would prefer to avoid further gastrointestinal bleeding instead. At this point, I recommend we continue his current dose of IV furosemide 40 mg twice daily. Looking forward, perhaps his outpatient regimen would be more effective if we transitioned him from furosemide to torsemide which is better oral bioavailability, as he seems to have a more vigorous diuretic effect with IV furosemide. I am going to increase his spironolactone dose back to 25 mg, his home dose for tomorrow. Subcutaneous heparin has already been by the primary admitting team for DVT prophylaxis however the patient has refused this. He was recently placed on him door for control of angina and afterload reduction as an outpatient, this will be continued, as well his home dose of metoprolol. He is not on statin therapy due to apparent intolerance versus nonadherence. If renal function is stable in the morning, we will re-introduce his losartan 25 mg daily.
[2018-01-28] MEDS: INSULIN GLARGINE SOLOSTAR 100 UNITS/ML 3 ML PEN SC SCH (20:52)
[2018-01-28 23:47] VITALS: BP 138/85; PULSE 98; TEMP 37.1; O2SAT 93
[2018-01-29 03:39] VITALS: BP 111/66; PULSE 90; TEMP 36.4; O2SAT 94
[2018-01-29 06:27] LABS: HEMATOCRIT 40.5 % (42-52); HEMOGLOBIN 13.1 g/dL (14.0-18.0); MEAN CELL VOLUME 86.9 fL (80-100); MEAN CORPUSCULAR HEMOGLOBIN 28.1 pg (25-34); MEAN CORPUSCULAR HGB CONC 32.3 g/dl (32-36); MEAN PLATELET VOLUME 12.6 fL (7.4-10.4); PLATELET COUNT 153 K/uL (130-400); RED CELL DISTRIBUTION WIDTH CV 14.6 % (11.5-14.5); RED CELL DISTRIBUTION WIDTH SD 45.8 fL (36.4-46.3)
[2018-01-29 06:56] LABS: CALCIUM 8.5 mg/dl (8.5-10.1); CREATININE 1.43 mg/dl (0.60-1.40); POTASSIUM 3.5 mmol/L (3.5-5.1)
[2018-01-29] MEDS: INSULIN ASPART 100 UNITS/ML 3 ML PEN SC SCH ×4 (07:00→21:08)
[2018-01-29 07:14] VITALS: BP 134/88; PULSE 96; TEMP 36.6; O2SAT 96
[2018-01-29] MEDS: FUROSEMIDE INJ 40 MG in SYRINGE 0 ML IV SCH ×2 (07:37→17:17)
[2018-01-29] MEDS: NYSTATIN SUSP 500,000 U/5 ML UDC PO SCH ×4 (07:38→21:03)
[2018-01-29] MEDS: SPIRONOLACTONE 25 MG TAB PO SCH (07:40)
[2018-01-29] MEDS: POTASSIUM CHLORIDE 10 MEQ TABCR PO SCH ×2 (07:40→21:03)
[2018-01-29] MEDS: METOPROLOL TARTRATE 25 MG TAB PO SCH (07:41)
[2018-01-29] MEDS: PANTOprazole SOD 40 MG TAB PO SCH ×2 (07:42→21:04)
[2018-01-29] MEDS: ISOSORBIDE MONONITRATE 30 MG TABCR PO SCH (07:42)
[2018-01-29] MEDS: HEPARIN SOD 5000 UNIT/0.5 ML CARP SQ SCH ×2 (08:32→19:17)
[2018-01-29] MEDS ORDERED: CLOPIDOGREL BISULFATE 75 MG TAB PO SCH (09:00)
[2018-01-29] MEDS ORDERED: LOSARTAN POTASSIUM 25 MG TAB PO SCH (09:00)
[2018-01-29 11:09] VITALS: BP 116/70; PULSE 82; TEMP 36.4; O2SAT 97
[2018-01-29] MEDS ORDERED: POTASSIUM CHLORIDE PWD 20 MEQ PACK PO ONE (11:30)
[2018-01-29] MEDS: LOSARTAN POTASSIUM 25 MG TAB PO SCH (12:03)
[2018-01-29] MEDS ORDERED: LORAZEPAM 0.5 MG TAB PO PRN (14:15)
--- NOTE | 2018-01-29 15:11 | Hospitalist Progress Note ---
Hospitalist Progress Note Date of Service Jan 29, 2018. (Tereza Gil ., NICOLE) Subjective Pt evaluation today including: conversation w/ patient, physical exam, chart review, lab review, review of inpatient medication list Voiding: no voiding problems Mr. Cook is overall not feeling well today. He feels he is breathing fast but does not describe it as sob, denies cp. He did have a 21 beat and 14 beat run of non symptomatic V tach over the night ROS Constitutional: no chills, aches, sweats or fever Respiratory: see HPI Cardiac: no chest pain, palpitations, edema, orthopnea or lightheadedness GI: no abdominal pain, nausea, vomiting, diarrhea or constipation : no dysuria or hesitancy Extremities: no joint pain or weakness Skin: no rash All other systems reviewed and negative (Tereza Gil, NICOLE) Medications Medications Administered Medications (Trade) Dose Ordered Sig/[place] Route Start Time Stop Time Status Last Admin Dose Admin Aspirin (Aspirin Chew) 324 mg NOW STAT PO 01/27/18 09:54 01/27/18 09:58 DC 01/27/18 10:16 324 MG Furosemide (Lasix Inj) 40 mg STK-MED ONCE .ROUTE 01/27/18 12:08 01/27/18 12:09 DC 01/27/18 12:12 40 MG Insulin Glargine (Lantus Solostar Pen) 10 units HS SC 01/27/18 21:00 02/26/18 20:59 01/28/18 20:52 10 UNITS Isosorbide Mononitrate (Imdur Ext Rel Tab) 30 mg DAILY PO 01/28/18 09:00 02/27/18 08:59 01/29/18 07:42 30 MG Metoprolol Tartrate (Lopressor Tab) 12.5 mg BID PO 01/27/18 21:00 01/28/18 16:38 DC 01/28/18 08:05 12.5 MG Spironolactone (Aldactone Tab) 12.5 mg QAM PO 01/28/18 09:00 01/28/18 19:17 DC 01/28/18 08:04 12.5 MG Pantoprazole Sodium (Protonix Tab) 40 mg BID PO 01/27/18 21:00 02/26/18 20:59 01/29/18 07:42 40 MG Heparin Sodium (Porcine) (Heparin Sq 5000 Unit/0.5ml) 5,000 unit Q12 SQ 01/27/18 21:00 02/26/18 20:59 01/27/18 20:24 5,000 UNIT Acetaminophen (Tylenol Tab) 650 mg Q4H PRN PO 01/27/18 13:30 02/26/18 13:29 01/27/18 22:15 650 MG Insulin Aspart (novoLOG ASPART) SLIDING SCALE If C... ACHS SC 01/27/18 16:00 02/26/18 15:59 01/29/18 12:32 2 UNITS Potassium Chloride (Klor-Con M10) 10 meq BID PO 01/27/18 21:00 02/26/18 20:59 01/29/18 07:40 10 MEQ Furosemide 40 mg/ Syringe 4 ml @ 4 mls/min BID17 IV 01/27/18 17:00 02/26/18 16:59 01/29/18 07:37 4 MLS/MIN Nystatin (Mycostatin Susp) 5 ml QID PO 01/27/18 17:00 02/06/18 16:59 01/29/18 12:03 5 ML Clopidogrel Bisulfate (plAVix TAB) 75 mg QAM PO 01/29/18 09:00 01/29/18 14:13 DC 01/29/18 07:42 75 MG Metoprolol Tartrate (Lopressor Tab) 25 mg BID PO 01/28/18 21:00 02/26/18 20:59 01/29/18 07:41 25 MG Spironolactone (Aldactone Tab) 25 mg QAM PO 01/29/18 09:00 02/28/18 08:59 01/29/18 07:40 25 MG Losartan Potassium (coZAAR TAB) 25 mg QAM PO 01/29/18 09:00 02/28/18 08:59 01/29/18 12:03 25 MG Potassium Chloride (Klor-Con Pwd) 20 meq 1130 ONCE PO 01/29/18 11:30 01/29/18 11:31 DC 01/29/18 12:02 20 MEQ (Tereza Gil, NICOLE) Objective Vital Signs Date Time Temp Pulse Resp B/P (MAP) Pulse Ox O2 Delivery O2 Flow Rate FiO2 01/29/18 12:00 Room Air 01/29/18 11:09 36.4 82 16 116/70 (85) 97 Room Air 01/29/18 08:00 Room Air 01/29/18 07:14 36.6 96 18 134/88 (103) 96 Room Air 01/29/18 04:00 Room Air 01/29/18 03:39 36.4 90 18 111/66 (81) 94 01/29/18 00:00 Room Air 01/28/18 23:47 37.1 98 16 138/85 (102) 93 Room Air 01/28/18 20:00 Room Air 01/28/18 18:54 36.6 96 20 111/70 (84) 97 Room Air 01/28/18 16:00 Room Air 01/28/18 15:12 36.7 89 22 109/73 (85) 92 Room Air (Tereza Gil CRNP) Physical Exam Notes: General: no distress Eyes: normal inspection, PERLL Respiratory: chest non tender, clear to auscultation, normal breath sounds, no respiratory distress, no accessory muscle use Cardiac: regular rate and rhythm, no rub or gallop, no murmur, +1 pitting edema LE GI/: active bowel sounds, no abd pain or tenderness, soft, non distended Extremities: normal range of motion, normal strength, non tender Neuro/Psych: alert and oriented x 3, normal mood and affect Skin: normal color, dry (Tereza Gil CRNP) Laboratory Results Last 24 Hours Test 01/28/18 16:15 01/28/18 20:05 01/29/18 05:59 01/29/18 06:47 Bedside Glucose 111 mg/dl 210 mg/dl 74 mg/dl White Blood Count 10.20 K/uL Red Blood Count 4.66 M/uL Hemoglobin 13.1 g/dL Hematocrit 40.5 % Mean Corpuscular Volume 86.9 fL Mean Corpuscular Hemoglobin 28.1 pg Mean Corpuscular Hemoglobin Concent 32.3 g/dl RDW Standard Deviation 45.8 fL RDW Coefficient of Variation 14.6 % Platelet Count 153 K/uL Mean Platelet Volume 12.6 fL Sodium Level 136 mmol/L Potassium Level 3.5 mmol/L Chloride Level 100 mmol/L Carbon Dioxide Level 27 mmol/L Anion Gap 9.0 mmol/L Blood Urea Nitrogen 39 mg/dl Creatinine 1.43 mg/dl Est Creatinine Clear Calc Drug Dose 52.5 ml/min Estimated GFR () 58.7 Estimated GFR (Non- 50.7 BUN/Creatinine Ratio 27.5 Random Glucose 56 mg/dl Calcium Level 8.5 mg/dl Magnesium Level 2.4 mg/dl Test 01/29/18 09:39 Bedside Glucose 167 mg/dl (Tereza Gil CRNP) Assessment and Plan Mr. Cook is a 67 year old man here for CHF exacerbation Acute hypoxic respiratory failure with acute on chronic diastolic/systolic congestive HF/HTN/CAD/A.fib - serial troponins peaked at 0.079 and trended down - repeat chest xray shows improving pulmonary congestion - ambulating halls with nurse - tolerating though moving very slowly - consulted cardiology - EKG with chest pain - Had recent echocardiogram that showed EF 30% - Diurese with lasix 40 mg IV BID- will change to po torsemide in the am per cardiology recommendation for discharge to see how he responds to it - cardiology resumed full home dose spironolactone, - resume home dose metoprolol tartrate at 50 mg daily bid - bps have been acceptable but patient slightly tachycardic - Cleared by GI to restart antiplatelets - discussed risks and benefits to restart Plavix, patient refused CKD III - baseline appears to be 1.1-1.4 - at 1.4 today - resumed losartan today - prp am DM - recent A1c 8.8 - continue sliding scale, lantus, accuchecks Oral thrush - continue nystatin DVT proph heparin subq Full code. (Tereza Gil CRNP) Supervising Note Dr. Bradford I performed a history and physical examination on the patient. I reviewed above note and agree with it. I discussed plan with APC and patient. During my face to face encounter with the patient, I answered all of the patient's questions. Will initiate torsemide tomorrow. Will continue lasix today. Trending PRP. Creatinine has been elevating. Will continue to monitor. Patient though will likely need to be on the dry side to decrease re-admissions d/w Cardiology (Johny Bradford M.D.)
[2018-01-29 15:40] VITALS: BP 119/78; PULSE 92; TEMP 36.5; O2SAT 95
[2018-01-29 16:15] VITALS: O2SAT 98
--- NOTE | 2018-01-29 18:13 | Cardiology Follow-Up ---
Subjective General Date of Service: Jan 29, 2018. Chief Complaint: Follow-up shortness of breath Pt evaluation today including: conversation w/ patient, physical exam History of Present Illness The patient is a 67 year old male seen in cardiology follow-up. He states he feels markedly improved. Urine output has been 2.2 L thus far today. Allergies Coded Allergies: Amoxicillin (Verified Allergy, Severe, hives swelling redness lip swelling , 01/27/18) Clavulanic Acid (Verified Allergy, Severe, hypotensive shock, 01/27/18) Iodinated Diagnostic Agents (Verified Allergy, Intermediate, HIVES, ) Prednisone (Verified Allergy, Intermediate, SHORTNESS OF BREATH, 01/27/18) as per patient Social History Smoking Status: Former Smoker Hx Tobacco Use In Past Year?: No Hx Alcohol Use - Type And Amou: No Hx Substance Use - Type And Am: No Problem List Medical Problems: (1) Abscess of right foot including toes Status: Acute (2) Acute chest pain Status: Acute (3) Acute congestive heart failure Status: Acute (4) DANIEL (acute kidney injury) Status: Acute (5) Cellulitis Status: Acute (6) CHF exacerbation Status: Acute (7) Dehydration Status: Acute (8) Diabetic foot infection Status: Acute (9) Elevated troponin Status: Acute (10) Insomnia Status: Acute (11) Intermittent epigastric abdominal pain Status: Acute (12) Leukocytosis Status: Acute (13) Lymphangitis, acute, lower leg Status: Acute (14) Pulmonary edema Status: Acute (15) Sepsis Status: Acute Physical Exam Vital Signs Last Vital Signs Documentation Date Time Temp Pulse Resp B/P (MAP) Pulse Ox O2 Delivery O2 Flow Rate FiO2 01/29/18 15:40 36.5 92 20 119/78 (92) 95 Room Air 01/27/18 16:00 2.0 Physical Exam Constitutional: Level of Distress: NAD, chronically ill Neck: supple Lungs: Auscultation: no wheezing, no rales/crackles Cardiovascular: Heart Auscultation: RRR, pertinent finding (1/6 systolic murmur) Extremities: pertinent finding (Trace ankle edema) Assessment and Plan Assessment and Plan Impression: 67-year-old male 1. Acute decompensation, chronic systolic heart failure, due to ischemic cardiomyopathy 2. Stage III chronic kidney disease, stable 3. Recent gastrointestinal bleeding due to esophageal ulcer requiring 3 units of packed red blood cells, and 24 hours of ventilator support for airway stabilization. He subsequently had an esophageal stricture that was dilated most recently to 17 mm on 01/14/18 4. Long-standing history of diffuse coronary heart disease, not amenable to revascularization on most recent cardiac catheterization August 2017 Plan: Transition IV furosemide to oral torsemide tomorrow. Follow renal function. Patient declines antiplatelet therapy due to his concerns of recurrent gastrointestinal bleeding. Laboratory Results Last 24 Hours Test 01/28/18 20:05 01/29/18 05:59 01/29/18 06:47 01/29/18 09:39 Bedside Glucose 210 mg/dl 74 mg/dl 167 mg/dl White Blood Count 10.20 K/uL Red Blood Count 4.66 M/uL Hemoglobin 13.1 g/dL Hematocrit 40.5 % Mean Corpuscular Volume 86.9 fL Mean Corpuscular Hemoglobin 28.1 pg Mean Corpuscular Hemoglobin Concent 32.3 g/dl RDW Standard Deviation 45.8 fL RDW Coefficient of Variation 14.6 % Platelet Count 153 K/uL Mean Platelet Volume 12.6 fL Sodium Level 136 mmol/L Potassium Level 3.5 mmol/L Chloride Level 100 mmol/L Carbon Dioxide Level 27 mmol/L Anion Gap 9.0 mmol/L Blood Urea Nitrogen 39 mg/dl Creatinine 1.43 mg/dl Est Creatinine Clear Calc Drug Dose 52.5 ml/min Estimated GFR () 58.7 Estimated GFR (Non- 50.7 BUN/Creatinine Ratio 27.5 Random Glucose 56 mg/dl Calcium Level 8.5 mg/dl Magnesium Level 2.4 mg/dl Test 01/29/18 11:25 01/29/18 16:32 Bedside Glucose 177 mg/dl 182 mg/dl
[2018-01-29 19:31] VITALS: BP 128/84; PULSE 101; TEMP 36.6; O2SAT 97
[2018-01-29] MEDS: METOPROLOL TARTRATE 50 MG TAB PO SCH (21:03)
[2018-01-29] MEDS: SODIUM CHLORIDE 0.65% NA SOLN 45 ML (OCEAN) SCH (21:09)
[2018-01-29] MEDS: INSULIN GLARGINE SOLOSTAR 100 UNITS/ML 3 ML PEN SC SCH (21:09)
[2018-01-30] VITALS (8 sets, daily range): BP systolic 104–129; BP diastolic 68–86; PULSE 71–98; TEMP 36.3–37; O2SAT 90–98; Ht 177.8 cm; Wt 82.1 kg
[2018-01-30 07:05] LABS: HEMATOCRIT 42.5 % (42-52); MEAN CELL VOLUME 87.6 fL (80-100); MEAN CORPUSCULAR HEMOGLOBIN 28.9 pg (25-34); MEAN CORPUSCULAR HGB CONC 32.9 g/dl (32-36); MEAN PLATELET VOLUME 12.2 fL (7.4-10.4); PLATELET COUNT 160 K/uL (130-400); RED CELL DISTRIBUTION WIDTH CV 14.5 % (11.5-14.5); RED CELL DISTRIBUTION WIDTH SD 46.5 fL (36.4-46.3)
[2018-01-30 07:43] LABS: CALCIUM 8.7 mg/dl (8.5-10.1); CREATININE 1.93 mg/dl (0.60-1.40); POTASSIUM 4.5 mmol/L (3.5-5.1)
[2018-01-30] MEDS: INSULIN ASPART 100 UNITS/ML 3 ML PEN SC SCH ×4 (08:09→20:33)
[2018-01-30] MEDS: HEPARIN SOD 5000 UNIT/0.5 ML CARP SQ SCH ×3 (08:10→21:00)
[2018-01-30] MEDS: LOSARTAN POTASSIUM 25 MG TAB PO SCH (08:10)
[2018-01-30] MEDS: SPIRONOLACTONE 25 MG TAB PO SCH (08:11)
[2018-01-30] MEDS: PANTOprazole SOD 40 MG TAB PO SCH ×2 (08:11→20:29)
[2018-01-30] MEDS: ISOSORBIDE MONONITRATE 30 MG TABCR PO SCH (08:11)
[2018-01-30] MEDS: POTASSIUM CHLORIDE 10 MEQ TABCR PO SCH ×2 (08:11→20:27)
[2018-01-30] MEDS: NYSTATIN SUSP 500,000 U/5 ML UDC PO SCH ×4 (08:11→20:28)
[2018-01-30] MEDS: METOPROLOL TARTRATE 50 MG TAB PO SCH ×2 (08:12→20:28)
[2018-01-30] MEDS: SODIUM CHLORIDE 0.65% NA SOLN 45 ML (OCEAN) SCH ×2 (08:13→20:26)
[2018-01-30] MEDS: TORSEMIDE 20 MG TAB PO SCH (08:18)
[2018-01-30 14:27] LABS: CREATININE 1.82 mg/dl (0.60-1.40); POTASSIUM 4.2 mmol/L (3.5-5.1)
[2018-01-30] MEDS ORDERED: DMD20 PO (15:47)
[2018-01-30] MEDS ORDERED: NYSS5 PO (15:47)
[2018-01-30] MEDS ORDERED: IMDSR30 PO (15:47)
--- NOTE | 2018-01-30 15:49 | Discharge Instructions ---
Discharge Instructions Date of Service Jan 30, 2018. Admission Reason for Admission: Acute Respiratory Failure With Hypoxia Discharge Discharge Diagnosis / Problem: Acute respiratory failure with hypoxia due to congestive heart failure Discharge Goals Goal(s): Decrease discomfort, Increase independence Activity Recommendations Activity Limitations: resume your previous activity Exercise/Sports Limitations: gradually increase as tolerated . Instructions / Follow-Up Instructions / Follow-Up Please follow up with your primary care provider within about a week Please follow up with cardiology within about a week Have your blood work drawn tomorrow, results will go to your primary care provider Call your Primary Care doctor if any of the following symptoms or problems start or get worse: * Shortness of breath or difficulty breathing * Wake up at night short of breath * Chest pain * Cough * Swelling of your hands, feet, or legs * More fatigued or tired with your normal activity * Palpitations - sudden fast heart beats WEIGHT * Weigh yourself every morning after using the bathroom. * Use the same scale. * Wear the same amount of clothing. * Write your weight down on a chart. * Call your Primary Care doctor if you gain more than 2-3 pounds in 1-2 days. MEDICATIONS * Use this discharge instruction sheet for medication instructions. * Take your medications at the time your doctor ordered. * Do not skip a dose of your medicines. * If you miss a dose of medicine, take it as soon as possible, but DO NOT DOUBLE A DOSE. * Read your medicine information when you get home. * Know all of the side effects of your medicine. If in doubt, ask your pharmacist * Call your Primary Care doctor's office if you have any side effects. * Be sure all of your doctors know what medicine and herbs you take (including cold, flu, and herbal medicine). Take the following with you to your follow-up doctor appointments: * Weight Chart * Medication List * List of questions Do not drink excessive alcohol, beer or wine. Current Hospital Diet Patient's current hospital diet: AHA Diet (Heart Healthy), Diabetes Type 2 Diet Discharge Diet Recommended Diet: AHA Diet (Heart Healthy), Low Sodium Diet (2gm Na), Diabetes Type 2 Diet Procedures Procedures Performed: Chest X ray Pending Studies Studies pending at discharge: no Laboratory Results Hemoglobin A1c Test 01/16/18 14:25 Range/Units Estimated Average Glucose 206 mg/dl Hemoglobin A1c 8.8 H 4.5-5.6 % Lipid Panel Test 01/28/18 07:00 Range/Units Triglycerides Level 62 0-150 mg/dl Cholesterol Level 162 0-200 mg/dl HDL Cholesterol 46 mg/dl Cholesterol/HDL Ratio 3.5 LDL Cholesterol, Calculated 104 mg/dl Medical Emergencies . Who to Call and When: Call 911 or go to the Emergency Room if: * If at any time you feel your situation is an emergency * You have tightness or pain in your chest that does not go away with rest or Nitroglycerin * You are very short of breath even with rest . Non-Emergent Contact Non-Emergency issues call your: Primary Care Provider Call Non-Emergent contact if: you have any medication questions . . "Provider Documentation" section prepared by Tereza Gil. .
--- NOTE | 2018-01-30 16:09 | Hospitalist Progress Note ---
Hospitalist Progress Note Date of Service Jan 30, 2018. (Tereza Gil ., NICOLE) Subjective Pt evaluation today including: conversation w/ patient, physical exam, chart review, lab review, review of inpatient medication list Voiding: no voiding problems Mr. Cook is tearful about being away from home. He is frustrated that he continues to require hospitalization. ROS Constitutional: no chills, aches, sweats or fever Respiratory: no sob,cough, sputum, or wheezing Cardiac: no chest pain, palpitations, edema, orthopnea or lightheadedness GI: no abdominal pain, nausea, vomiting, diarrhea or constipation : no dysuria or hesitancy Extremities: no joint pain or weakness Skin: no rash All other systems reviewed and negative (Tereza Gil CRNP) Medications Medications Administered Medications (Trade) Dose Ordered Sig/[place] Route Start Time Stop Time Status Last Admin Dose Admin Aspirin (Aspirin Chew) 324 mg NOW STAT PO 01/27/18 09:54 01/27/18 09:58 DC 01/27/18 10:16 324 MG Furosemide (Lasix Inj) 40 mg STK-MED ONCE .ROUTE 01/27/18 12:08 01/27/18 12:09 DC 01/27/18 12:12 40 MG Insulin Glargine (Lantus Solostar Pen) 10 units HS SC 01/27/18 21:00 02/26/18 20:59 01/29/18 21:09 10 UNITS Isosorbide Mononitrate (Imdur Ext Rel Tab) 30 mg DAILY PO 01/28/18 09:00 02/27/18 08:59 01/30/18 08:11 30 MG Metoprolol Tartrate (Lopressor Tab) 12.5 mg BID PO 01/27/18 21:00 01/28/18 16:38 DC 01/28/18 08:05 12.5 MG Spironolactone (Aldactone Tab) 12.5 mg QAM PO 01/28/18 09:00 01/28/18 19:17 DC 01/28/18 08:04 12.5 MG Pantoprazole Sodium (Protonix Tab) 40 mg BID PO 01/27/18 21:00 02/26/18 20:59 01/30/18 08:11 40 MG Heparin Sodium (Porcine) (Heparin Sq 5000 Unit/0.5ml) 5,000 unit Q12 SQ 01/27/18 21:00 02/26/18 20:59 01/27/18 20:24 5,000 UNIT Acetaminophen (Tylenol Tab) 650 mg Q4H PRN PO 01/27/18 13:30 02/26/18 13:29 01/27/18 22:15 650 MG Insulin Aspart (novoLOG ASPART) SLIDING SCALE If C... ACHS SC 01/27/18 16:00 02/26/18 15:59 01/30/18 12:19 7 UNITS Potassium Chloride (Klor-Con M10) 10 meq BID PO 01/27/18 21:00 02/26/18 20:59 01/30/18 08:11 10 MEQ Furosemide 40 mg/ Syringe 4 ml @ 4 mls/min BID17 IV 01/27/18 17:00 01/29/18 18:00 DC 01/29/18 17:17 4 MLS/MIN Nystatin (Mycostatin Susp) 5 ml QID PO 01/27/18 17:00 02/06/18 16:59 01/30/18 12:19 5 ML Clopidogrel Bisulfate (plAVix TAB) 75 mg QAM PO 01/29/18 09:00 01/29/18 14:13 DC 01/29/18 07:42 75 MG Metoprolol Tartrate (Lopressor Tab) 25 mg BID PO 01/28/18 21:00 01/29/18 15:10 DC 01/29/18 07:41 25 MG Spironolactone (Aldactone Tab) 25 mg QAM PO 01/29/18 09:00 02/28/18 08:59 Future Hold 01/30/18 08:11 25 MG Losartan Potassium (coZAAR TAB) 25 mg QAM PO 01/29/18 09:00 02/28/18 08:59 Future Hold 01/30/18 08:10 25 MG Potassium Chloride (Klor-Con Pwd) 20 meq 1130 ONCE PO 01/29/18 11:30 01/29/18 11:31 DC 01/29/18 12:02 20 MEQ Torsemide (Demadex Tab) 20 mg QAM PO 01/30/18 09:00 03/01/18 08:59 Future Hold 01/30/18 08:18 20 MG Metoprolol Tartrate (Lopressor Tab) 50 mg BID PO 01/29/18 21:00 02/26/18 20:59 01/30/18 08:12 50 MG Sodium Chloride ([place] Nasal Shunk) 2 sprays BID NA 01/29/18 21:00 02/28/18 20:59 01/30/18 08:13 2 SPRAYS (Tereza Gil CRNP) Objective Vital Signs Date Time Temp Pulse Resp B/P (MAP) Pulse Ox O2 Delivery O2 Flow Rate FiO2 01/30/18 12:00 Room Air 01/30/18 11:29 36.4 83 18 129/85 (100) 94 Room Air 01/30/18 08:00 Room Air 01/30/18 07:15 36.4 96 18 123/86 (98) 92 Room Air 01/30/18 04:00 Nasal Cannula 2.0 01/30/18 03:45 37.0 91 18 111/79 (90) 94 Room Air 01/30/18 00:03 36.7 95 18 116/79 (91) 96 Room Air 01/30/18 00:00 Nasal Cannula 2.0 01/29/18 20:00 Room Air 01/29/18 19:31 36.6 101 20 128/84 (99) 97 Room Air 01/29/18 16:15 98 Room Air (Tereza Gil CRNP) Physical Exam Notes: General: no distress Eyes: normal inspection, PERLL Respiratory: chest non tender, clear to auscultation, normal breath sounds, no respiratory distress, no accessory muscle use Cardiac: regular rate and rhythm, no rub or gallop, no murmur, trace pitting lower extremity edema GI/: active bowel sounds, no abd pain or tenderness, soft, non distended Extremities: normal range of motion, normal strength, non tender Neuro/Psych: alert and oriented x 3, normal mood and affect Skin: normal color, dry (Tereza Gil CRNP) Laboratory Results Last 24 Hours Test 01/29/18 16:32 01/29/18 21:01 01/30/18 06:38 01/30/18 06:54 Bedside Glucose 182 mg/dl 253 mg/dl 203 mg/dl White Blood Count 12.10 K/uL Red Blood Count 4.85 M/uL Hemoglobin 14.0 g/dL Hematocrit 42.5 % Mean Corpuscular Volume 87.6 fL Mean Corpuscular Hemoglobin 28.9 pg Mean Corpuscular Hemoglobin Concent 32.9 g/dl RDW Standard Deviation 46.5 fL RDW Coefficient of Variation 14.5 % Platelet Count 160 K/uL Mean Platelet Volume 12.2 fL Sodium Level 131 mmol/L Potassium Level 4.5 mmol/L Chloride Level 95 mmol/L Carbon Dioxide Level 27 mmol/L Anion Gap 9.0 mmol/L Blood Urea Nitrogen 50 mg/dl Creatinine 1.93 mg/dl Est Creatinine Clear Calc Drug Dose 38.9 ml/min Estimated GFR () 40.9 Estimated GFR (Non- 35.3 BUN/Creatinine Ratio 25.8 Random Glucose 229 mg/dl Calcium Level 8.7 mg/dl Test 01/30/18 11:28 01/30/18 13:51 Bedside Glucose 218 mg/dl Sodium Level 133 mmol/L Potassium Level 4.2 mmol/L Chloride Level 97 mmol/L Carbon Dioxide Level 27 mmol/L Anion Gap 9.0 mmol/L Blood Urea Nitrogen 48 mg/dl Creatinine 1.82 mg/dl Est Creatinine Clear Calc Drug Dose 41.2 ml/min Estimated GFR () 43.9 Estimated GFR (Non- 37.9 BUN/Creatinine Ratio 26.5 Random Glucose 164 mg/dl Calcium Level 9.0 mg/dl (Tereza Gil, NICOLE) Assessment and Plan Mr. Cook is a 67 year old man here for CHF exacerbation Acute hypoxic respiratory failure with acute on chronic diastolic/systolic congestive HF/HTN/CAD/A.fib - serial troponins peaked at 0.079 and trended down - repeat chest xray shows improving pulmonary congestion - ambulating halls with nurse - tolerating well today - consulted cardiology - EKG with chest pain - Had recent echocardiogram that showed EF 30% - Diuresed with lasix 40 mg IV BID- changed to po torsemide today per cardiology recommendation - cardiology resumed full home dose spironolactone, - continue home dose metoprolol tartrate at 50 mg daily bid - bps have been acceptable, continue increased Imdur dose at 30 mg daily - Cleared by GI to restart antiplatelets - discussed risks and benefits to restart Plavix, patient refused - patient does not seem to really grasp the chronic nature of his heart failure. He said he doesn't want anymore "band-aid" fixes and wants to to solve the problem for good. I did discuss at length the need for daily chf care (ie. daily weights, low sodium intake, adherence to med regimen, etc) rather than there being a once and for all fix for his condition. Ongoing education and reinforcement will be necessary for him. CKD III - baseline appears to be 1.1-1.4 - diuresed over 2L yesterday with IV lasix resulting in a bumped creat of 1.9 today. Repeat prp this afternoon showed creat 1.8. - prp am DM - recent A1c 8.8 - continue sliding scale, lantus, accuchecks Oral thrush - continue nystatin DVT proph heparin subq Full code. (Tereza Gil ., NICOLE) Supervising Note Dr. Bradford I performed a history and physical examination on the patient. I reviewed above note and agree with it. I discussed plan with APC and patient. During my face to face encounter with the patient, I answered all of the patient's questions. Patient appears to be tolerating Bumex. Creatinine is also improving. Will continue to monitor tomorrow AM. If remains below 2.0, will discharge in AM. D/W cardiology, they agree with plan. (Johny Bradford M.D.)
--- NOTE | 2018-01-30 17:29 | Cardiology Progress Note ---
Cardiology Progress Note Date of Service Jan 30, 2018. Cardiology Progress Note Patient seen in follow-up. He notes that his shortness of breath has improved compared to when he came into the hospital but he still does not think he is back to his typical baseline. Telemetry reveals stable sinus rhythm without significant arrhythmia. Last Resulted 01/30/18 06:54 Last Resulted 01/30/18 13:51 Impression: Acute decompensation, chronic systolic heart failure, ischemic cardiomyopathy, inoperable coronary disease Recommendations: The patient's creatinine had trended up from 1.4 yesterday to 1.9 this morning he was repeated this afternoon at 1351 and it was 1.82. I would expect that in order to keep him comfortable from a volume status standpoint, that his creatinine will likely need to be somewhere in the 1.6-2 range. Torsemide 20 mg daily and spironolactone 25 mg daily are currently on hold. As noted earlier, patient declines antiplatelet therapy. In addition he has been refusing DVT prophylaxis heparin. His losartan is on hold pending reassessment of his kidney function tomorrow. Patient would like to stay in the hospital and have his kidney function reassessed in the morning. We will continue to follow.
[2018-01-30] MEDS: INSULIN GLARGINE SOLOSTAR 100 UNITS/ML 3 ML PEN SC SCH (20:32)
[2018-01-31 04:56] VITALS: BP 110/73; PULSE 93; TEMP 36.4; O2SAT 91
[2018-01-31 05:50] LABS: HEMATOCRIT 40.1 % (42-52); HEMOGLOBIN 13.5 g/dL (14.0-18.0); MEAN CELL VOLUME 85.7 fL (80-100); MEAN CORPUSCULAR HEMOGLOBIN 28.8 pg (25-34); MEAN CORPUSCULAR HGB CONC 33.7 g/dl (32-36); MEAN PLATELET VOLUME 12.1 fL (7.4-10.4); PLATELET COUNT 158 K/uL (130-400); RED CELL DISTRIBUTION WIDTH CV 14.7 % (11.5-14.5); RED CELL DISTRIBUTION WIDTH SD 45.6 fL (36.4-46.3); WHITE BLOOD COUNT 12.34 K/uL (4.8-10.8)
[2018-01-31 06:28] LABS: CALCIUM 8.7 mg/dl (8.5-10.1); CREATININE 1.78 mg/dl (0.60-1.40); POTASSIUM 4.6 mmol/L (3.5-5.1)
[2018-01-31 07:47] VITALS: BP 122/82; PULSE 94; TEMP 36.4; O2SAT 94
[2018-01-31] MEDS: HEPARIN SOD 5000 UNIT/0.5 ML CARP SQ SCH (08:05)
[2018-01-31] MEDS: POTASSIUM CHLORIDE 10 MEQ TABCR PO SCH (08:05)
[2018-01-31] MEDS: METOPROLOL TARTRATE 50 MG TAB PO SCH (08:05)
[2018-01-31] MEDS: PANTOprazole SOD 40 MG TAB PO SCH (08:05)
[2018-01-31] MEDS: ISOSORBIDE MONONITRATE 30 MG TABCR PO SCH (08:06)
[2018-01-31] MEDS: SODIUM CHLORIDE 0.65% NA SOLN 45 ML (OCEAN) SCH (08:06)
[2018-01-31] MEDS: NYSTATIN SUSP 500,000 U/5 ML UDC PO SCH (08:06)
[2018-01-31] MEDS: INSULIN ASPART 100 UNITS/ML 3 ML PEN SC SCH (08:08)
[2018-01-31] MEDS: TORSEMIDE 20 MG TAB PO SCH (09:42)
--- NOTE | 2018-01-31 11:01 | Discharge Summary ---
Discharge Summary Date of Service Jan 30, 2018. Discharge Summary Admission Date: Jan 27, 2018 at 13:23 Discharge Date: Jan 30, 2018 Discharge Disposition: Home Principal Diagnosis: Acute hypoxic respiratory failure with acute on chronic diastolic/systolic Problems/Secondary Diagnoses: HTN/CAD/A.fib, acute renal failure, CKD III, DM, Oral thrush Immunizations: Have You Had Influenza Vaccine: No History of Tetanus Vaccine?: No History of Pneumococcal: No History of Hepatitis B Vaccine: No Procedures: CHEST ONE VIEW PORTABLE CLINICAL HISTORY: Congestive heart failure. COMPARISON STUDY: Chest CT December 30, 2017 and chest radiograph January 27, 2018. FINDINGS: There are median sternotomy wires. No pneumothorax is noted. Small to moderate left pleural effusion is noted with a trace right pleural effusion. Lung volumes are diminished. Pulmonary edema has slightly improved. Left basilar opacity persists. IMPRESSION: 1. Persistent, but mildly improved, pulmonary edema. 2. Small to moderate left and trace right pleural effusions. 3. Left basilar opacity which favors atelectasis although pneumonia could appear similar. CHEST ONE VIEW PORTABLE CLINICAL HISTORY: CHEST PAIN SHORTNESS OF BREATH COMPARISON STUDY: January 04, 2008 FINDINGS: There are postsurgical changes of a midline sternotomy. The heart is enlarged. There is radiographic evidence of congestive failure with bilateral pleural effusions. Bibasilar opacities likely representing a combination of atelectasis and focal edema.[ IMPRESSION: Radiographic evidence of congestive failure with mild pulmonary edema and bilateral pleural effusions. Electronically signed by: Valentin Werner M.D. 01/27/2018 11:03 AM Consultations: Dr. Nelson with cardiology Medication Reconciliation New Medications: Isosorbide Mononitrate (Isosorbide Mononitrate ER) 30 Mg Tabcr 30 MG PO DAILY for 30 Days, #30 DOSE Nystatin (Nystatin) 5 Ml Susp 5 ML PO QID for 10 Days, #40 DOSE Torsemide (Torsemide) 20 Mg Tab 20 MG PO QAM for 30 Days, #30 TAB Continued Medications: Ascorbic Acid (Ascorbic Acid) 1,000 Mg Tab 1000 MG PO BID B-Complex Vitamins (Vitamin B Complex) 1 Tab Tab 1 TAB PO QAM Coenzyme Q10 (Ubidecarenone) (Co Q 10) 100 Mg Cap 200 MG PO DAILY Glipizide (Glipizide Er) 10 Mg Tab 10 MG PO BID, TAB Insulin Glargine (Basaglar Kwikpen) 100 Unit/Ml Inj 10 UNITS SC HS Losartan Potassium (Losartan Potassium) 25 Mg Tab 25 MG PO QAM Magnesium Oxide (Mg Supplement (Magnesium) 250 Mg Tab Metoprolol Tartrate (Lopressor) (Lopressor) 50 Mg Tab 50 MG PO BID, TAB do not take if b/p less than 105, heart rate less than 60, Nitroglycerin (Nitrostat) 0.4 Mg Sub 0.4 MG UT PRN PRN for Chest Pain, BTL Pantoprazole (Protonix) 20 Mg Tab 40 MG PO BID, #30 TAB Spironolactone (Aldactone) 25 Mg Tab 25 MG PO QAM, TAB [Primatene Mist] () 1-2 PUFFS INH DIRECTED PRN for Shortness of Breath Discontinued Medications: Furosemide (Lasix) 40 Mg Tab 40 MG PO BID, TAB Isosorbide Mononitrate (Isosorbide Mononitrate) 20 Mg Tab Discharge Exam ROS Constitutional: no chills, aches, sweats or fever Respiratory: no sob,cough, sputum, or wheezing Cardiac: no chest pain, palpitations, edema, orthopnea or lightheadedness GI: no abdominal pain, nausea, vomiting, diarrhea or constipation : no dysuria or hesitancy Extremities: no joint pain or weakness Skin: no rash No events on tele overnight or today All other systems reviewed and negative PE General: no distress Eyes: normal inspection, PERLL Respiratory: chest non tender, clear to auscultation, normal breath sounds, no respiratory distress, no accessory muscle use Cardiac: regular rate and rhythm, no rub or gallop, no murmur, trace pitting lower extremity edema GI/: active bowel sounds, no abd pain or tenderness, soft, non distended Extremities: normal range of motion, normal strength, non tender Neuro/Psych: alert and oriented x 3, normal mood and affect Skin: normal color, dry Hospital Course 67 year old man with complicated past medical history, patient had CABG in 2006 followed by multiple cardiac catheterization multiple stents, he also has paroxysmal atrial fibrillation not on any anticoagulation due to esophageal ulcers and upper GI bleed, patient also has intermittent left bundle branch block, combined systolic and diastolic congestive heart failure with ejection fraction of about 30%, patient declined AICD in the past, also has diabetes mellitus recently started on insulin, hypertension and clinically suspected obstructive sleep apnea. Patient presented to the ED with progressive worsening shortness of breath and generalized weakness. 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 Denies any fever chills denies any vomiting. He stated that his mouth has been very dry slightly itchy. Acute hypoxic respiratory failure with acute on chronic diastolic/systolic congestive HF/HTN/CAD/A.fib - serial troponins peaked at 0.079 and trended down - repeat chest xray shows improving pulmonary congestion - ambulating halls with nurse - tolerating well today - consulted cardiology - EKG with chest pain - Had recent echocardiogram that showed EF 30% - Diuresed with lasix 40 mg IV BID- changed to po torsemide today per cardiology recommendation - cardiology resumed full home dose spironolactone, - continue home dose metoprolol tartrate at 50 mg daily bid - bps have been acceptable but patient slightly tachycardic, continue increased Imdur dose at 30 mg daily - Cleared by GI to restart antiplatelets - discussed risks and benefits to restart Plavix, patient refused - patient does not seem to really grasp the chronic nature of his heart failure. He said he doesn't want anymore "band-aid" fixes and wants to to solve the problem for good. I did discuss at length the need for daily chf care (ie. daily weights, low sodium intake, adherence to med regimen, etc) rather than there being a once and for all fix for his condition. Ongoing education and reinforcement will be necessary for him. CKD III, DANIEL - baseline appears to be 1.1-1.4 - diuresed over 2L 01/29 with IV lasix resulting in a bumped creat of 1.9 today. Repeat prp yesterday afternoon showed creat 1.82 and creatinine today is 1.78. Will discharge patient with script for repeat prp in am but won't hold any medications for discharge. Per cardiology, is is likely patient will run a creatinine of 1.6-2.0 in order to have tolerable fluid balance DM - recent A1c 8.8 - sliding scale, lantus, accuchecks inpatient - resume sulfonylurea and continue lantus for outpatient Oral thrush - continue nystatin for total 14 days DVT proph heparin subq Full code. Total Time Spent: Greater than 30 minutes This includes examination of the patient, discharge planning, medication reconciliation, and communication with other providers. Discharge Instructions Please refer to the electronic Patient Visit Report (Discharge Instructions) for additional information. Follow-Up cardiology, pcp in about a week prp tomorrow Additional Copies To Aissatou Chin M.D.
[2018-01-31 11:09] VITALS: BP 122/82; PULSE 94; TEMP 36.4; O2SAT 94
[2018-01-31] MEDS: SPIRONOLACTONE 25 MG TAB PO SCH (11:24)
== END 2018-01-31 11:47 | disposition home or self-care (01) | DRG 291 ==
LOC: C.EDB 09:44 → C.2T 13:23 → ENRESERV 13:44 → C.2T 15:01
PROVIDERS: ADMIT Internal Medicine; ATTEND Internal Medicine Sports Medicine
DX: I13.0 Hypertensive heart and chronic kidney disease with heart failure and stage 1 through stage 4 chronic kidney disease, or unspecified chronic kidney disease (principal); I50.43 Acute on chronic combined systolic (congestive) and diastolic (congestive) heart failure; J96.01 Acute respiratory failure with hypoxia; B37.0 Candidal stomatitis; N17.9 Acute kidney failure, unspecified; I48.0 Paroxysmal atrial fibrillation; E11.22 Type 2 diabetes mellitus with diabetic chronic kidney disease; N18.3 Chronic kidney disease, stage 3 (moderate); I25.2 Old myocardial infarction; I25.5 Ischemic cardiomyopathy; Z51.81 Encounter for therapeutic drug level monitoring; Z79.899 Other long term (current) drug therapy; Z79.4 Long term (current) use of insulin; Z87.19 Personal history of other diseases of the digestive system; Z95.1 Presence of aortocoronary bypass graft; Z95.5 Presence of coronary angioplasty implant and graft; Z87.891 Personal history of nicotine dependence; Z88.0 Allergy status to penicillin; Z88.8 Allergy status to other drugs, medicaments and biological substances; Z91.041 Radiographic dye allergy status; Z83.3 Family history of diabetes mellitus; Z82.49 Family history of ischemic heart disease and other diseases of the circulatory system

== ENCOUNTER → 2018-02-01 | Outpatient (CLI) | payer OTHER, BC ==
[~2018-02-01] MED LIST changes: +DMD20 PO; -FRS/40 PO; +IMDSR30 PO; +INSU100I23 SC; +MAGN250T8; -MAGN250T8 PO; +NYSS5 PO; -TRAZ50TA35 PO
[2018-02-01 17:53] LABS: BLOOD UREA NITROGEN 50 mg/dl (7-18); CALCIUM 8.6 mg/dl (8.5-10.1); CARBON DIOXIDE 33 mmol/L (21-32); CREATININE 1.79 mg/dl (0.60-1.40); GLUCOSE 180 mg/dl (70-99); POTASSIUM 4.5 mmol/L (3.5-5.1); SODIUM 134 mmol/L (136-145)
== END | disposition home or self-care (01) ==
LOC: C.LABPVFM 13:23
PROVIDERS: ATTEND Nurse Practitioner Family
DX: N18.9 Chronic kidney disease, unspecified (principal)

== ENCOUNTER 2018-02-20 08:13 | Emergency (ER) | payer OTHER, BC ==
[~2018-02-20] VITALS: Ht 177.8 cm; Wt 81.6 kg
[~2018-02-20 08:13] MED LIST changes: -MAGN250T8; +MAGN250T8 PO
[2018-02-20 08:16] VITALS: TEMP 36.5; Ht 177.8 cm; Wt 81.6 kg
[2018-02-20] MEDS ORDERED: INSDGIPEN SC (08:45)
[2018-02-20] MEDS ORDERED: GLC/500 PO (08:45)
--- NOTE | 2018-02-20 09:08 | EMERGENCY ROOM VISIT NOTE ---
History Report prepared by Farrah: Blanka Coronel Under the Supervision of: Dr. Robin Koch M.D. First contact with patient: 08:40 Chief Complaint: DEHYDRATION Stated Complaint: SLEEPINESS, POSSIBLE DEHYDRATION Nursing Triage Summary: Patient relates that he was seen in November. Given Heparin, in which, he began to vomit. He had esophageal ulcers and needed surgery to remove and widen the Esophagus. He relates that he has not been able to sleep and has had a decreased appetite since this time. He feels that today he may be dehydrated. He relates that he has nausea today. He did take Melatonin and Benadryl to try to help him sleep. is at bedside. History of Present Illness The patient is a 68 year old male who presents to the Emergency Room with complaints of constant generalized illness beginning a couple months ago. The patient reports difficulty sleeping, shortness of breath, fatigue, and feeling dehydrated. The patient reports he has been "in and out" of the hospital since the beginning of November. He reports taking melatonin and Benadryl last night for his difficulty sleeping with no relief. The patient is not on any blood thinners. He does not wear oxygen at baseline. The patient notes a rash on his arm which he believes was an allergic reaction to insulin. He reports the insulin he was on was changed and his rash has slightly resolved since its onset a week ago. Source of History: patient Onset: a couple months ago Position: other (generalized) Quality: other (illness) Timing: constant Associated Symptoms: + SOB, + fatigue, + rash Review of Systems See HPI for pertinent positives & negatives. A total of 10 systems reviewed and were otherwise negative. Past Medical & Surgical Medical Problems: (1) Abnormal EKG (2) Acute exacerbation of CHF (congestive heart failure) (3) Acute GI bleeding (4) acute Gi bleeding (5) Acute respiratory failure with hypoxemia (6) Atrial Fibrillation (7) CHF (congestive heart failure) (8) CHF (congestive heart failure) (9) Diab [place] Compl, Type Ii Or Unspec Type, Not Uncntrld (10) Hyperglycemia (11) Hyperlipidemia Nec/Nos (12) Hypertension Nos (13) Hypotensive shock (14) New left bundle branch block (15) NSTEMI (non-ST elevated myocardial infarction) (16) Old Myocardial Infarct (17) Pneumonia (18) Shortness of breath (19) SOB (shortness of breath) (20) Thrush (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, right Surgical Problems: (1) H/O cardiac catheterization (2) H/O heart artery stent (3) H/O heart bypass surgery (4) Status post double vessel coronary artery bypass Family History Cancer Diabetes mellitus FH ischemic heart disease Social History Smoking Status: Never Smoker Alcohol Use: none Drug Use: none Marital Status: in relationship Housing Status: lives alone Occupation Status: employed Current/Historical Medications Scheduled Ascorbic Acid (Ascorbic Acid), 1,000 MG PO BID B-Complex Vitamins (Vitamin B Complex), 1 TAB PO QAM Coenzyme Q10 (Ubidecarenone) (Co Q 10), 200 MG PO DAILY Insulin Glargine (Lantus Solostar), 10 UNITS SC QPM Isosorbide Mononitrate (Isosorbide Mononitrate ER), 30 MG PO DAILY Losartan Potassium (Losartan Potassium), 25 MG PO QAM Magnesium Oxide (Mg Supplement (Magnesium), 250 MG PO DAILY Metformin Hcl (Glucophage), 500 MG PO DAILY Metoprolol Tartrate (Lopressor) (Lopressor), 25 MG PO BID Pantoprazole (Protonix), 40 MG PO BID Spironolactone (Aldactone), 25 MG PO QAM Torsemide (Torsemide), 20 MG PO QAM Scheduled PRN Nitroglycerin (Nitrostat), 0.4 MG UT PRN PRN for Chest Pain Allergies Coded Allergies: Amoxicillin (Verified Allergy, Severe, hives swelling redness lip swelling , 02/20/18) Clavulanic Acid (Verified Allergy, Severe, hypotensive shock, 02/20/18) Iodinated Diagnostic Agents (Verified Allergy, Intermediate, HIVES, 02/20/18 ) Prednisone (Verified Allergy, Intermediate, SHORTNESS OF BREATH, 02/20/18) as per patient Physical Exam Vital Signs Date Time Temp Pulse Resp B/P (MAP) Pulse Ox O2 Delivery O2 Flow Rate FiO2 02/20/18 12:17 102 18 118/82 97 02/20/18 10:33 106 20 134/79 98 Room Air 02/20/18 10:00 106 23 134/79 98 Room Air 02/20/18 09:41 102 116/88 102 119/84 104 114/77 02/20/18 09:38 101 16 98 Room Air 02/20/18 09:33 101 13 117/79 98 Room Air 02/20/18 08:44 Room Air 02/20/18 08:41 99 02/20/18 08:38 102 20 107/74 97 Room Air 02/20/18 08:16 36.5 96 18 105/67 96 Room Air Physical Exam GENERAL: Awake, alert, well-appearing, in no acute distress HENT: Normocephalic, atraumatic. Oropharynx unremarkable. EYES: Normal conjunctiva. Sclera non-icteric. NECK: Supple. No nuchal rigidity. FROM. No JVD. RESPIRATORY: Slight bilateral wheezing present. CARDIAC: Regular rate, normal rhythm. Extremities warm and well perfused. Pulses equal. ABDOMEN: Soft, non-distended. No tenderness to palpation. No rebound or guarding. No masses. RECTAL: Deferred. MUSCULOSKELETAL: Chest examination reveals no tenderness. The back is symmetrical on inspection without obvious abnormality. There is no CVA tenderness to palpation. No joint edema. LOWER EXTREMITIES: Calves are equal size bilaterally and non-tender. No edema. No discoloration. NEURO: Normal sensorium. No sensory or motor deficits noted. SKIN: Fine rash to torso. Medical Decision & Procedures ER Provider Diagnostic Interpretation: Radiology results as stated below per my review and radiologist interpretation: CHEST ONE VIEW PORTABLE FINDINGS: There are postsurgical changes of a midline sternotomy. The heart is enlarged. There is radiographic evidence of pulmonary vascular congestion. There are bilateral pleural effusions left greater than right. There are associated left lower lobe airspace opacities. IMPRESSION: 1. Continued radiographic evidence of congestive failure/fluid overload 2. Persistent bilateral pleural effusions left greater than right 3. Persistent left lower lobe airspace opacities. These could be atelectatic or inflammatory Electronically signed by: Valenitn Werner M.D. Laboratory Results 02/20/18 09:42 Red Blood Count 4.79, Mean Corpuscular Volume 83.7, Mean Corpuscular Hemoglobin 28.2, Mean Corpuscular Hemoglobin Concent 33.7, Mean Platelet Volume 12.8, Neutrophils (%) (Auto) 80.7, Lymphocytes (%) (Auto) 10.5, Monocytes (%) (Auto) 6.8, Eosinophils (%) (Auto) 1.3, Basophils (%) (Auto) 0.4, Neutrophils # (Auto) 6.26, Lymphocytes # (Auto) 0.81, Monocytes # (Auto) 0.53, Eosinophils # (Auto) 0.10, Basophils # (Auto) 0.03 02/20/18 09:42 Test 02/20/18 09:42 02/20/18 09:49 02/20/18 09:50 02/20/18 11:05 White Blood Count 7.75 K/uL (4.8-10.8) Red Blood Count 4.79 M/uL (4.7-6.1) Hemoglobin 13.5 g/dL (14.0-18.0) Hematocrit 40.1 % (42-52) Mean Corpuscular Volume 83.7 fL (80-100) Mean Corpuscular Hemoglobin 28.2 pg (25-34) Mean Corpuscular Hemoglobin Concent 33.7 g/dl (32-36) Platelet Count 148 K/uL (130-400) Mean Platelet Volume 12.8 fL (7.4-10.4) Neutrophils (%) (Auto) 80.7 % Lymphocytes (%) (Auto) 10.5 % Monocytes (%) (Auto) 6.8 % Eosinophils (%) (Auto) 1.3 % Basophils (%) (Auto) 0.4 % Neutrophils # (Auto) 6.26 K/uL (1.4-6.5) Lymphocytes # (Auto) 0.81 K/uL (1.2-3.4) Monocytes # (Auto) 0.53 K/uL (0.11-0.59) Eosinophils # (Auto) 0.10 K/uL (0-0.5) Basophils # (Auto) 0.03 K/uL (0-0.2) RDW Standard Deviation 44.7 fL (36.4-46.3) RDW Coefficient of Variation 14.5 % (11.5-14.5) Immature Granulocyte % (Auto) 0.3 % Immature Granulocyte # (Auto) 0.02 K/uL (0.00-0.02) Anion Gap 8.0 mmol/L (3-11) Est Creatinine Clear Calc Drug Dose 45.1 ml/min Estimated GFR () 49.4 Estimated GFR (Non- 42.6 BUN/Creatinine Ratio 22.3 (10-20) Calcium Level 8.8 mg/dl (8.5-10.1) Total Bilirubin 0.9 mg/dl (0.2-1) Direct Bilirubin 0.3 mg/dl (0-0.2) Aspartate Amino Transf (AST/SGOT) 24 U/L (15-37) Alanine Aminotransferase (ALT/SGPT) 46 U/L (12-78) Alkaline Phosphatase 155 U/L (45-117) Total Creatine Kinase 41 U/L (39-308) Creatine Kinase MB 3.3 ng/ml (0.5-3.6) Creatine Kinase MB Ratio 8.0 (0-3.0) Troponin I 0.022 ng/ml (0-0.045) Pro-B-Type Natriuretic Peptide 62861 pg/ml (0-900) Total Protein 6.6 gm/dl (6.4-8.2) Albumin 3.1 gm/dl (3.4-5.0) Thyroid Stimulating Hormone (TSH) 0.519 uIu/ml (0.300-4.500) Bedside Glucose 157 mg/dl (70-99) Influenza Type A Antigen Neg for Influ A (NEG) Influenza Type B Antigen Neg for Influ B (NEG) Urine Color YELLOW Urine Appearance CLEAR (CLEAR) Urine pH 5.0 (4.5-7.5) Urine Specific [place] 1.012 (1.000-1.030) Urine Protein NEG (NEG) Urine Glucose (UA) NEG (NEG) Urine Ketones NEG (NEG) Urine Occult Blood NEG (NEG) Urine Nitrite NEG (NEG) Urine Bilirubin NEG (NEG) Urine Urobilinogen NEG (NEG) Urine Leukocyte Esterase NEG (NEG) Labs reviewed by ED physician. Medications Administered Medications (Trade) Dose Ordered Sig/[place] Route Start Time Stop Time Status Last Admin Dose Admin Albuterol/ Ipratropium (Duoneb) 12 ml ONE ONCE INH 02/20/18 09:15 02/20/18 09:16 DC 02/20/18 09:35 12 ML Furosemide (Lasix Inj) 40 mg NOW STAT IV 02/20/18 09:33 02/20/18 09:34 DC 02/20/18 09:45 40 MG ECG Per My Interpretation Indication: SOB/dyspnea Rate (beats per minute): 97 Findings: T-wave inversion (Lateral), other (old septal infarcts, old lateral infarct ) Comparison ECG Date: 3/11/18 Change: no significant change ED Course 0855: Past medical records reviewed. The patient was evaluated in room B6. A complete history and physical examination was performed. 0915: Ordered Duoneb 12 ml INH. 932: Ordered Lasix Inj 40 mg IV. 1150: I updated the patient on his test results. I gave him the option of coming into the hospital for further evaluation and he would like to follow up as an outpatient. 1213: Upon reexamination the patient is resting comfortably. I discussed results and treatment plan with the patient. He verbalizes agreement and understanding. The patient is ready for discharge. Medical Decision Differential diagnosis: Etiologies such as metabolic, infection, hypo/hyperglycemia, electrolyte abnormalities, cardiac sources, intracerebral event, toxicologic, neurologic, as well as others were entertained. This is a 68-year-old male who presents the emergency department complaining of being unable to sleep last night. The patient is slightly hypoxic upon arrival to the emergency department and his chest x-ray is concerning for pulmonary edema. For this reason the patient was given Lasix here in the emergency department. He is not requiring oxygen here and I gave the patient the option of being admitted however he wishes to be discharged home. I strongly recommended to the patient he increase his torsemide over the next 3 days but then have a repeat renal profile drawn within the next week. The patient has multiple doctor follow-ups however I stressed the need to return to the emergency department if he becomes acutely short of breath or weak. Both patient and are in agreement with the treatment plan. Medication Reconcilliation Current Medication List: was personally reviewed by me Blood Pressure Screening Patient's blood pressure: Normal blood pressure Impression Primary Impression: CHF exacerbation Scribe Attestation The scribe's documentation has been prepared under my direction and personally reviewed by me in its entirety. I confirm that the note above accurately reflects all work, treatment, procedures, and medical decision making performed by me. Departure Information Dispostion Home / Self-Care Referrals No Doctor, Assigned (PCP) Forms HOME CARE DOCUMENTATION FORM, IMPORTANT VISIT INFORMATION, WORK / SCHOOL INSTRUCTIONS Patient Instructions ED CHF General, My [facility] Additional Instructions Increase Torsemide for three days Return if SOB or weakness increase You have been examined and treated today on an emergency basis only. This is not a substitute for, or an effort to provide, complete comprehensive medical care. It is impossible to recognize and treat all injuries or illnesses in a single emergency department visit. It is therefore important that you follow up closely with Dr Moore. Call as soon as possible for an appointment. Thank you for your time and consideration. I look forward to speaking with you again soon. Please don't hesitate to call us if you have any questions. Problem Qualifiers Primary Impression: CHF exacerbation Heart failure type: systolic Qualified Codes: I50.23 - Acute on chronic systolic (congestive) heart failure
[2018-02-20] MEDS ORDERED: ALBUT/IPRATROP 3MG/0.5MG NEB 3 ML VIAL INH ONE (09:15)
--- NOTE | 2018-02-20 09:26 | DIAGNOSTIC IMAGING REPORT ---
CHEST ONE VIEW PORTABLE CLINICAL HISTORY: Shortness of breath COMPARISON STUDY: January 28, 2018 FINDINGS: There are postsurgical changes of a midline sternotomy. The heart is enlarged. There is radiographic evidence of pulmonary vascular congestion. There are bilateral pleural effusions left greater than right. There are associated left lower lobe airspace opacities. [ IMPRESSION: 1. Continued radiographic evidence of congestive failure/fluid overload 2. Persistent bilateral pleural effusions left greater than right 3. Persistent left lower lobe airspace opacities. These could be atelectatic or inflammatory Electronically signed by: Valentin Werner M.D. 02/20/2018 9:24 AM Dictated Date/Time: 02/20/2018 9:23 AM
[2018-02-20] MEDS ORDERED: FUROSEMIDE 40 MG/4 ML VIAL IV STA (09:33)
[2018-02-20 09:38] VITALS: PULSE 101; O2SAT 98
[2018-02-20 09:59] LABS: BASO % 0.4 %; BASO ABS # 0.03 K/uL (0-0.2); EOS % 1.3 %; HEMATOCRIT 40.1 % (42-52); HEMOGLOBIN 13.5 g/dL (14.0-18.0); IG# 0.02 K/uL (0.00-0.02); LYMPH % 10.5 %; LYMPH ABS # 0.81 K/uL (1.2-3.4); MEAN CELL VOLUME 83.7 fL (80-100); MEAN CORPUSCULAR HEMOGLOBIN 28.2 pg (25-34); MEAN CORPUSCULAR HGB CONC 33.7 g/dl (32-36); MEAN PLATELET VOLUME 12.8 fL (7.4-10.4); MONO % 6.8 %; MONO ABS # 0.53 K/uL (0.11-0.59); NEUT % 80.7 %; NEUT ABS # 6.26 K/uL (1.4-6.5); PLATELET COUNT 148 K/uL (130-400); RED CELL DISTRIBUTION WIDTH CV 14.5 % (11.5-14.5); RED CELL DISTRIBUTION WIDTH SD 44.7 fL (36.4-46.3); WHITE BLOOD COUNT 7.75 K/uL (4.8-10.8)
[2018-02-20 10:16] LABS: ALBUMIN 3.1 gm/dl (3.4-5.0); CALCIUM 8.8 mg/dl (8.5-10.1); CREATININE 1.64 mg/dl (0.60-1.40); POTASSIUM 4.4 mmol/L (3.5-5.1)
[2018-02-20 10:26] LABS: CKMB 3.3 ng/ml (0.5-3.6); TOTAL PROTEIN 6.6 gm/dl (6.4-8.2)
[2018-02-20 10:30] LABS: INFLUENZA B ANTIGEN Neg for Influ B (NEG)
[2018-02-20 12:17] VITALS: BP 118/82; PULSE 102; O2SAT 97
== END 2018-02-20 12:17 | disposition home or self-care (01) ==
LOC: C.EDB 08:16
DX: I50.23 Acute on chronic systolic (congestive) heart failure (principal); I11.0 Hypertensive heart disease with heart failure; I48.91 Unspecified atrial fibrillation; E78.5 Hyperlipidemia, unspecified; I44.7 Left bundle-branch block, unspecified; E11.9 Type 2 diabetes mellitus without complications; I25.2 Old myocardial infarction; Z95.5 Presence of coronary angioplasty implant and graft; Z95.1 Presence of aortocoronary bypass graft; Z83.3 Family history of diabetes mellitus; Z82.49 Family history of ischemic heart disease and other diseases of the circulatory system; Z79.4 Long term (current) use of insulin; Z79.84 Long term (current) use of oral hypoglycemic drugs; Z88.0 Allergy status to penicillin; Z88.1 Allergy status to other antibiotic agents; Z91.041 Radiographic dye allergy status; Z88.8 Allergy status to other drugs, medicaments and biological substances

== ENCOUNTER 2018-03-05 13:51 | Inpatient (IN) | payer OTHER, BC ==
[~2018-03-05] VITALS: Ht 177.8 cm; Wt 79.4 kg
[~2018-03-05 13:51] MED LIST changes: -ASCO100061 PO; -B-COTAB18 PO; -COEN1CAP17 PO; -DMD20 PO; -GLIP-199 PO; -IMDSR30 PO; -INSU100I23 SC; -METO50TA16 PO; -NITR0.4S UT; -NYSS5 PO; -PRIMATENE MIST INH; -PRT/20 PO; -SPIR25TA PO
--- NOTE | 2018-03-05 14:22 | DIAGNOSTIC IMAGING REPORT ---
CHEST ONE VIEW PORTABLE HISTORY: 68 years-old Male cough acute cough COMPARISON: Chest radiograph 02/20/2018 TECHNIQUE: Portable AP view of the chest FINDINGS: Cardiac silhouette is moderately enlarged, unchanged. Right median sternotomy. Atherosclerosis of the aorta. No pneumothorax. Small right and moderate left pleural effusions with persistent bibasilar hazy opacities. Mild pulmonary edema is unchanged. Bones of the chest appear grossly intact. Degenerative changes are seen within the shoulders and spine. IMPRESSION: 1. Cardiomegaly with persistent mild pulmonary edema. 2. Small right and moderate left pleural effusions with persistent bibasilar opacities suggesting atelectasis or pneumonitis. The above report was generated using voice recognition software. It may contain grammatical, syntax or spelling errors. Electronically signed by: Dilan Camacho M.D. 03/05/2018 2:21 PM Dictated Date/Time: 03/05/2018 2:19 PM
--- NOTE | 2018-03-05 14:29 | EMERGENCY ROOM VISIT NOTE ---
History First contact with patient: 13:58 Chief Complaint: DEHYDRATION Stated Complaint: DEHYDRATION Nursing Triage Summary: Pt reports cough, sob, n/v x 1 week. Denies associated pain. Denies diarrhea. History of Present Illness The patient is a 68 year old male with a h/o CHF, DMII and recent esophageal ulcerations and esophageal stenosis s/p dilation who presents to the Emergency Room with complaints of progressive SOB, difficulty with swallowing as well as increasing weakness. He has noticed over the past week that he has had increasing cough which is productive for a white/ fluffy like sputum. Over the week he has noticed an increase in this cough as well as increasing difficulty with swallowing. The notes that they have been having "regular but soft" foods as well apple sauce. "The apple sauce and drinks go down fine but I can have a lot of difficulty with regular foods. I have no pain with swallowing." The reiterated multiple times her concern with his dehydration and the upcoming colonoscopy prep. The patient is to have an EGD on sunday to reassess the stenosis and it was to be done with a colonoscopy however she does not feel comfortable with him undergoing the prep with his weakness. He has had no chest pain, abdominal pain, fever, LE pain, blood in stool or urine. Review of Systems a 10 point review of systems was completed and negative aside from above Past Medical/Surgical History Medical Problems: (1) Abnormal EKG (2) Acute exacerbation of CHF (congestive heart failure) (3) Acute GI bleeding (4) acute Gi bleeding (5) Acute respiratory failure with hypoxemia (6) Atrial Fibrillation (7) CHF (congestive heart failure) (8) CHF (congestive heart failure) (9) Diab [place] Compl, Type Ii Or Unspec Type, Not Uncntrld (10) Hyperglycemia (11) Hyperlipidemia Nec/Nos (12) Hypertension Nos (13) Hypotensive shock (14) New left bundle branch block (15) NSTEMI (non-ST elevated myocardial infarction) (16) Old Myocardial Infarct (17) Pneumonia (18) Shortness of breath (19) SOB (shortness of breath) (20) Thrush (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, right Surgical Problems: (1) H/O cardiac catheterization (2) H/O heart artery stent (3) H/O heart bypass surgery (4) Status post double vessel coronary artery bypass Family History Cancer Diabetes mellitus FH ischemic heart disease Social History Smoking Status: Never Smoker Smokeless Tobacco Use: No Alcohol Use: none Drug Use: none Marital Status: in relationship Housing Status: lives alone Occupation Status: employed Current/Historical Medications Scheduled Ascorbic Acid (Ascorbic Acid), 1,000 MG PO BID B-Complex Vitamins (Vitamin B Complex), 1 TAB PO QAM Coenzyme Q10 (Ubidecarenone) (Co Q 10), 200 MG PO DAILY Ferrous Sulfate (Ferrous Sulfate), 1 TAB PO DIRECTED Insulin Glargine (Lantus Solostar), 12 UNITS SC QPM Isosorbide Mononitrate (Isosorbide Mononitrate ER), 1 TAB PO QAM Losartan Potassium (Losartan Potassium), 25 MG PO QAM Magnesium (Magnesium 250 mg), 250 MG PO DAILY Metformin Hcl (Glucophage), 500 MG PO BID Metoprolol Tartrate (Lopressor) (Lopressor), 25 MG PO BID Pantoprazole (Protonix), 40 MG PO BID Spironolactone (Aldactone), 25 MG PO QAM Torsemide (Demadex), 20 MG PO QAM Scheduled PRN Nitroglycerin (Nitrostat), 0.4 MG UT PRN PRN for Chest Pain Ondansetron (Ondansetron HCl), 4 MG PO Q4 PRN for Nausea or Vomiting Allergies amoxil, IV contrast, prednisone Physical Exam Vital Signs Date Time Temp Pulse Resp B/P (MAP) Pulse Ox O2 Delivery O2 Flow Rate FiO2 03/05/18 17:39 94 24 103/80 98 Room Air 03/05/18 16:20 93 17 110/75 97 Room Air 03/05/18 14:20 96 03/05/18 13:54 36.3 98 18 106/79 96 Room Air Physical Exam General: ambulatory, not in acute distress Skin: no rashes noted, no suspicious lesions, no areas of inflammations/ lacerations/ erythema noted CVS: S1/ S2 noted, RRR, no rubs/ murmurs noted, no cyanosis RVS:not in acute respiratory distress, no wheezing/ rales/ crackles noted, diminished to bilat bases L>R ENT: no erythema/ injection/ ulcerations noted in the pharynx, no lymphadenopathy, no nasal turbinate swelling, dry mucus membranes Neck: inspection WNL, full ROM of neck, no bruits noted ABD: BSx4, no pain/ tenderness on palpation, no organomegaly MSK: inspection of all limbs WNL, motor and sensation intact in all limbs, +3 bilat pedal edema, non pitting to mid calf NVS: PERRL, EOMI, sensation intact in all extremities Lymph: No lymphadenopathy palpable Psych: Well dressed, mood: " stressed", affect appropriate Medical Decision & Procedures ER Provider Diagnostic Interpretation: CHEST ONE VIEW PORTABLE HISTORY: 68 years-old Male cough acute cough COMPARISON: Chest radiograph 02/20/2018 TECHNIQUE: Portable AP view of the chest FINDINGS: Cardiac silhouette is moderately enlarged, unchanged. Right median sternotomy. Atherosclerosis of the aorta. No pneumothorax. Small right and moderate left pleural effusions with persistent bibasilar hazy opacities. Mild pulmonary edema is unchanged. Bones of the chest appear grossly intact. Degenerative changes are seen within the shoulders and spine. IMPRESSION: 1. Cardiomegaly with persistent mild pulmonary edema. 2. Small right and moderate left pleural effusions with persistent bibasilar opacities suggesting atelectasis or pneumonitis. BILIARY ULTRASOUND CLINICAL HISTORY: Elevated liver function tests COMPARISON STUDY: July 21, 2017 FINDINGS: The pancreas is poorly visualized. No definite masses were evident. There are no focal hepatic masses. There is no ductal dilatation. There are multiple gallstones. There is a small amount of biliary sludge. There is no gallbladder wall thickening and no evidence of pericholecystic fluid. The gallbladder was mildly distended. The common bile duct measures 6 mm. There is no right-sided hydronephrosis. There is a small right pleural effusion. IMPRESSION: 1. Cholelithiasis. Mildly distended gallbladder which in addition contains sludge. 2. 6 mm common bile duct 3. Small right pleural effusion Laboratory Results 03/05/18 14:53 Red Blood Count 5.05, Mean Corpuscular Volume 82.0, Mean Corpuscular Hemoglobin 27.9, Mean Corpuscular Hemoglobin Concent 34.1, Mean Platelet Volume 12.7, Neutrophils (%) (Auto) 79.8, Lymphocytes (%) (Auto) 12.2, Monocytes (%) (Auto) 6.8, Eosinophils (%) (Auto) 0.7, Basophils (%) (Auto) 0.2, Neutrophils # (Auto) 7.84, Lymphocytes # (Auto) 1.20, Monocytes # (Auto) 0.67, Eosinophils # (Auto) 0.07, Basophils # (Auto) 0.02 03/05/18 14:53 Test 03/05/18 14:53 03/05/18 16:16 White Blood Count 9.83 K/uL (4.8-10.8) Red Blood Count 5.05 M/uL (4.7-6.1) Hemoglobin 14.1 g/dL (14.0-18.0) Hematocrit 41.4 % (42-52) Mean Corpuscular Volume 82.0 fL (80-100) Mean Corpuscular Hemoglobin 27.9 pg (25-34) Mean Corpuscular Hemoglobin Concent 34.1 g/dl (32-36) Platelet Count 189 K/uL (130-400) Mean Platelet Volume 12.7 fL (7.4-10.4) Neutrophils (%) (Auto) 79.8 % Lymphocytes (%) (Auto) 12.2 % Monocytes (%) (Auto) 6.8 % Eosinophils (%) (Auto) 0.7 % Basophils (%) (Auto) 0.2 % Neutrophils # (Auto) 7.84 K/uL (1.4-6.5) Lymphocytes # (Auto) 1.20 K/uL (1.2-3.4) Monocytes # (Auto) 0.67 K/uL (0.11-0.59) Eosinophils # (Auto) 0.07 K/uL (0-0.5) Basophils # (Auto) 0.02 K/uL (0-0.2) RDW Standard Deviation 44.7 fL (36.4-46.3) RDW Coefficient of Variation 15.1 % (11.5-14.5) Immature Granulocyte % (Auto) 0.3 % Immature Granulocyte # (Auto) 0.03 K/uL (0.00-0.02) Anion Gap 10.0 mmol/L (3-11) Est Creatinine Clear Calc Drug Dose 42.5 ml/min Estimated GFR () 46.0 Estimated GFR (Non- 39.7 BUN/Creatinine Ratio 26.3 (10-20) Calcium Level 9.1 mg/dl (8.5-10.1) Total Bilirubin 1.1 mg/dl (0.2-1) Aspartate Amino Transf (AST/SGOT) 176 U/L (15-37) Alanine Aminotransferase (ALT/SGPT) 207 U/L (12-78) Alkaline Phosphatase 175 U/L (45-117) Pro-B-Type Natriuretic Peptide 42408 pg/ml (0-900) Total Protein 6.5 gm/dl (6.4-8.2) Albumin 3.0 gm/dl (3.4-5.0) Globulin 3.5 gm/dl (2.5-4.0) Albumin/Globulin Ratio 0.8 (0.9-2) Lipase 228 U/L (73-393) Troponin I 0.041 ng/ml (0-0.045) Medications Administered Medications (Trade) Dose Ordered Sig/[place] Route Start Time Stop Time Status Last Admin Dose Admin Sodium Chloride 250 ml @ 0 mls/hr Q0M ONCE IV 03/05/18 17:45 03/05/18 17:46 DC 03/05/18 17:47 0 MLS/HR Ondansetron HCl (Zofran Inj) 4 mg STK-MED ONCE .ROUTE 03/05/18 18:05 03/05/18 18:06 DC 03/05/18 18:07 4 MG ECG Per My Interpretation Indication: weakness Rate (beats per minute): 95 Rhythm: normal sinus Findings: no acute ischemic change, left axis deviation Change: no significant change Change: QTc 490 no ectopy appreciated ED Course 1400: Patient assessed by Resident 1430: NSS 250 cc bolus x1 1453: Update and patient on results of CXR and EKG 1745: discussed the case with the family the patient and they were agreeable with discharge and plan 1810: Discussed case with hospitalist for further evaluation and admission Medical Decision Differential diagnosis includes but is not limited to pulmonary edema, acute CHF exacerbation, pneumonia, recurrent esophageal stenosis, achalasia, carcinoma This is a 68 yo m with a complicated past medical history which includes chronic CHF as well as no esophageal stenosis requiring dilation. The patient was evaluated ischemic changes on EKG however there was no significant change from his EKG at the beginning of February. He also did have decreased breath sounds to the left lung however his CXR only revealed chronic pulmonary edema as well as persistent bibasilar opacities. No anemia or leukocytosis was appreciated on CBC. Mild hyponatremia appreciated without any hypokalemia. He was also noted to have elevated bili, LFT and alk phos. On imaging review the patient has a history of cholelithiasis per USG in the past so a follow up USG was completed. Pending results of the USG a troponin was found to be elevated at 0.047. As the patient had a history of slightly elevated troponin a 90 minute troponin was repeat and was actually decreased to 0.041 and with the unchanged EKG reassuring. The USG was resulted and the patient had similar findings to his USG in jul 2017 which includes nephrolithiasis and a CBD of 0.6mm. The patient most likely is suffering from some mild dehydration secondary to his stenosis and poor oral intake. Agree to hold off on colonoscopy prep at this time however to have EGD on Sunday. His elevated LFT are reflective of an obstruction however there is no indication of cholecystitis or cholangitis on USG and no leukocytosis. The patient will be arranged to follow up with [facility] in outpatient setting. We discussed the plan with the patient and and they reflected understanding of the plan and discharged home. Prior to his discharge home the patient started to vomit profusely and was given zofran 4 mg IV. We discussed discharge versus admission however in light of the elevated LFT and cholelithiasis as well as dehydration with vomiting we discussed the case with the hospitalist team to further evaluate the patient for admission. Medication Reconcilliation Current Medication List: was personally reviewed by id Blood Pressure Screening Patient's blood pressure: Normal blood pressure Consults Time Called: 1809 Consulting Physician: Dr Meadows Returned Call: 1810 Patient will be further evaluated for admission Impression Primary Impression: Dehydration Additional Impression: Elevated LFTs Departure Information Dispostion Home / Self-Care Referrals Shae Moore M.D. (PCP) Patient Instructions My [facility] Problem Qualifiers
[2018-03-05] MEDS ORDERED: SODIUM CHLORIDE 0.9% 250ML 250 ML IV SCH (14:30)
[2018-03-05 15:17] LABS: BASO % 0.2 %; BASO ABS # 0.02 K/uL (0-0.2); EOS % 0.7 %; EOS ABS # 0.07 K/uL (0-0.5); HEMATOCRIT 41.4 % (42-52); HEMOGLOBIN 14.1 g/dL (14.0-18.0); IG# 0.03 K/uL (0.00-0.02); LYMPH % 12.2 %; MEAN CORPUSCULAR HEMOGLOBIN 27.9 pg (25-34); MEAN CORPUSCULAR HGB CONC 34.1 g/dl (32-36); MEAN PLATELET VOLUME 12.7 fL (7.4-10.4); MONO % 6.8 %; MONO ABS # 0.67 K/uL (0.11-0.59); NEUT % 79.8 %; NEUT ABS # 7.84 K/uL (1.4-6.5); PLATELET COUNT 189 K/uL (130-400); RED CELL DISTRIBUTION WIDTH CV 15.1 % (11.5-14.5); RED CELL DISTRIBUTION WIDTH SD 44.7 fL (36.4-46.3); WHITE BLOOD COUNT 9.83 K/uL (4.8-10.8)
[2018-03-05 15:34] LABS: CALCIUM 9.1 mg/dl (8.5-10.1); CREATININE 1.74 mg/dl (0.60-1.40); POTASSIUM 4.2 mmol/L (3.5-5.1)
[2018-03-05 15:39] LABS: TOTAL PROTEIN 6.5 gm/dl (6.4-8.2)
--- NOTE | 2018-03-05 17:27 | DIAGNOSTIC IMAGING REPORT ---
BILIARY ULTRASOUND CLINICAL HISTORY: Elevated liver function tests COMPARISON STUDY: July 21, 2017 FINDINGS: The pancreas is poorly visualized. No definite masses were evident. There are no focal hepatic masses. There is no ductal dilatation. There are multiple gallstones. There is a small amount of biliary sludge. There is no gallbladder wall thickening and no evidence of pericholecystic fluid. The gallbladder was mildly distended. The common bile duct measures 6 mm. There is no right-sided hydronephrosis. There is a small right pleural effusion. IMPRESSION: 1. Cholelithiasis. Mildly distended gallbladder which in addition contains sludge. 2. 6 mm common bile duct 3. Small right pleural effusion Electronically signed by: Valentin Werner M.D. 03/05/2018 5:26 PM Dictated Date/Time: 03/05/2018 5:24 PM
[2018-03-05] MEDS ORDERED: SODIUM CHLORIDE 0.9% 250ML 250 ML IV ONE (17:45)
[2018-03-05] MEDS ORDERED: ONDANSETRON INJ 2 MG/ML 2 ML VIAL IV STA (17:57)
[2018-03-05] MEDS ORDERED: ONDANSETRON INJ 2 MG/ML 2 ML VIAL ONE (18:05)
--- NOTE | 2018-03-05 18:25 | EMERGENCY ROOM VISIT NOTE ---
ED Visit Note First contact with patient: 13:58 I have personally evaluated this patient examined her and reviewed the pertinent labs and data. I have discussed the case with the resident physician and agree with the plan. Please refer to the PA note. This patient has a complicated medical history. He has a history of CHF and is on diuretics. As of late he has had difficulty swallowing and has had some vomiting. he has had some problems with his esophagus in the past as well. He looks well initially on my exam and is scheduled be scoped this week and they are concerned he is too weak to do this. His EKG shows no acute changes compared to old. Chest x-ray shows some chronic congestive changes. His BNP is chronically elevated. Troponin is borderline and a second troponin is slightly less than the first. I do not think his acute cardiac event his LFTs have come up compared to baseline enteritis with her gallbladder ultrasound was unremarkable. The patient was seen to be doing well and had just a very gentle bolus of 250 cc normal IV saline here given his CHF. He was feeling okay and then he started throwing up again after he tried to eat something he does not feel he can go home. I am concerned he could be related to his esophagus as well. He was given Zofran and we have consulted the [facility] hospitalist team to see him in the ER.
[2018-03-05] MEDS ORDERED: SODIUM CHLORIDE 0.9% 1000ML 1,000 ML IV SCH (19:14)
[2018-03-05] MEDS ORDERED: ALUMINUM/MAGNESIUM/SIMETH (MAALOX MAX) 30 ML UDC PO PRN (19:15)
[2018-03-05] MEDS ORDERED: MAGNESIUM HYDROXIDE SUSP 30 ML UDC PO PRN (19:15)
[2018-03-05] MEDS ORDERED: ONDANSETRON INJ 2 MG/ML 2 ML VIAL IV PRN (19:15)
[2018-03-05] MEDS ORDERED: GLUCOSE 40% GEL 15 GM TUBE PO PRN (19:15)
[2018-03-05] MEDS ORDERED: POLYETHYLENE (MIRALAX) 17 GM PACK PO PRN (19:15)
[2018-03-05] MEDS ORDERED: GLUCOSE 10 TABS/TUBE PO PRN (19:15)
[2018-03-05] MEDS ORDERED: DEXTROSE 50% 50 ML SYR IV PRN (19:15)
[2018-03-05] MEDS ORDERED: ACETAMINOPHEN 325 MG TAB PO PRN (19:15)
[2018-03-05] MEDS ORDERED: GLUCAGON FOR INJ 1 MG VIAL SQ PRN (19:15)
--- NOTE | 2018-03-05 19:36 | History and Physical ---
History & Physical Date & Time of Service: Mar 05, 2018 at 19:32 Chief Complaint: Dehydration Primary Care Physician: Shae Moore M.D. History of Present Illness Source: patient, spouse Mr. Cook is a 68 y/o male with PMHx of Mixed Systolic/Diastolic CHF, Esophageal Stenosis, Esophageal Ulcers, T2DM, Paroxysmal Atrial Fibrillation, CKD Stage III, and Hyperthyroidism who presents to the ED c/o progressive SOB, difficulty swallowing, and increased weakness. Patient has had long standing issues with CHF and dysphagia requiring multiple admission. He states over the past week he has had a productive cough of white thick sticky sputum that he is having difficulty clearing. He is unsure if the mucus is draining from the sinuses vs down in the chest. He states his appetite has been down and tries to eat regular foods but having difficulty. He states his pills go down ok "when I take them" eluding to some non-compliance. Also states the consistency of applesauce is the easiest to swallow and not having issues with liquids. His significant other feels he has lost weight however when presenting to his PCP yesterday it appears he has gain weight. He is having episodes of vomiting which largely contains chewed food. It appears he is more regurgitation and may actually be induced by coughing. His episode of emesis in the ED was because of coughing and trying to expel this thick sputum he is describing. He does not associate any pain with swallowing. Cannot described what phase of swallowing seems to be the most bothersome or if there is a sensation of food lodging in the esophagus. He was started on Mucinex for this mucus and will continue this. He is due for an EGD and colonoscopy this Sunday with Marija VILL[place]. [place] [address] which is chronic for him. Lungs sound largely diminished more on L than R but no evidence of JVD. Lower extremities edematous but oral mucosa extremely dry. Will gently hydrate with 1 more bag of NSS and reassess given his poor EF/grade II diastolic dysfunction. Will order CT given possibility of pneumonitis. Will also assess pleural effusions. Given his extensive diuretics the fluid may be loculated and may require thoracentesis ? However he is satting appropriately on RA at this time. With review of records it appears in 2013 he was diagnosed with multinodular thyroid and just got re-established with an endocrinology who plans on doing testing next week. Possibility of this nodularity compressing esophagus? Was to take methimazole but has elected against this. Was re-established as concern this could be contributing to his frequent CHF exacerbations Past Medical/Surgical History Medical Problems: (1) Abnormal EKG (2) Abscess of right foot including toes (3) Acute chest pain (4) Acute congestive heart failure (5) Acute exacerbation of CHF (congestive heart failure) (6) Acute GI bleeding (7) acute Gi bleeding (8) Acute respiratory failure with hypoxemia (9) DANIEL (acute kidney injury) (10) Aspiration pneumonitis (11) Atrial Fibrillation (12) Cellulitis (13) CHF (congestive heart failure) (14) CHF (congestive heart failure) (15) CHF exacerbation (16) CHF exacerbation (17) Dehydration (18) Diab [place] Compl, Type Ii Or Unspec Type, Not Uncntrld (19) Diabetic foot infection (20) Elevated troponin (21) Hyperglycemia (22) Hyperlipidemia Nec/Nos (23) Hypertension Nos (24) Hypotensive shock (25) Insomnia (26) Intermittent epigastric abdominal pain (27) Leukocytosis (28) Lymphangitis, acute, lower leg (29) New left bundle branch block (30) NSTEMI (non-ST elevated myocardial infarction) (31) Old Myocardial Infarct (32) Pneumonia (33) Pulmonary edema (34) Sepsis (35) Shortness of breath (36) SOB (shortness of breath) (37) Thrush (38) Toe osteomyelitis, right Surgical Problems: (1) H/O cardiac catheterization (2) H/O heart artery stent (3) H/O heart bypass surgery (4) Status post double vessel coronary artery bypass Family History Cancer Diabetes mellitus FH ischemic heart disease Social History Smoking Status: Never Smoker Smokeless Tobacco Use: No Drug Use: none Marital Status: in relationship Housing status: lives alone Occupational Status: employed Immunizations History of Influenza Vaccine: No History of Tetanus Vaccine?: No History of Pneumococcal: No History of Hepatitis B Vaccine: No Allergies Coded Allergies: Amoxicillin (Verified Allergy, Severe, hives swelling redness lip swelling , 03/05/18) Clavulanic Acid (Verified Allergy, Severe, hypotensive shock, 03/05/18) Iodinated Diagnostic Agents (Verified Allergy, Intermediate, HIVES, ) Prednisone (Verified Allergy, Intermediate, SHORTNESS OF BREATH, 03/05/18) as per patient Home Medications Scheduled Ascorbic Acid (Ascorbic Acid), 1,000 MG PO BID B-Complex Vitamins (Vitamin B Complex), 1 TAB PO QAM Coenzyme Q10 (Ubidecarenone) (Co Q 10), 200 MG PO DAILY Ferrous Sulfate (Ferrous Sulfate), 1 TAB PO DIRECTED Insulin Glargine (Lantus Solostar), 12 UNITS SC QPM Isosorbide Mononitrate (Isosorbide Mononitrate ER), 1 TAB PO QAM Losartan Potassium (Losartan Potassium), 25 MG PO QAM Magnesium (Magnesium 250 mg), 250 MG PO DAILY Metformin Hcl (Glucophage), 500 MG PO BID Metoprolol Tartrate (Lopressor) (Lopressor), 25 MG PO BID Pantoprazole (Protonix), 40 MG PO BID Spironolactone (Aldactone), 25 MG PO QAM Torsemide (Demadex), 20 MG PO QAM Scheduled PRN Nitroglycerin (Nitrostat), 0.4 MG UT PRN PRN for Chest Pain Ondansetron (Ondansetron HCl), 4 MG PO Q4 PRN for Nausea or Vomiting Review of Systems Constitutional: + weakness (generalized), No fever, No chills ENT: + trouble swallowing, No nasal symptoms, No sore throat Respiratory: + cough, + sputum, + shortness of breath, No hemoptysis Cardiovascular: No chest pain, No palpitations Abdomen: + nausea, + vomiting, No pain, No diarrhea, No constipation Musculoskeletal: + swelling (b/l lower extremities), No calf pain Genitourinary - Male: No dysuria Hematologic / Lymphatic: No abnormal bleeding/bruising Integumentary: No rash Physical Exam Vital Signs Date Time Temp Pulse Resp B/P (MAP) Pulse Ox O2 Delivery O2 Flow Rate FiO2 03/05/18 19:24 92 22 98 Room Air 03/05/18 17:39 94 24 103/80 98 Room Air 03/05/18 16:20 93 17 110/75 97 Room Air 03/05/18 14:20 96 03/05/18 13:54 36.3 98 18 106/79 96 Room Air General Appearance: no apparent distress, + thin Head: normocephalic, atraumatic Eyes: sclerae normal ENT: pharynx normal, + pertinent finding (dry oral mucosa) Neck: supple, no JVD, trachea midline, + thyroid abnormalities (enlarged tissue b/l lobes) Respiratory/Chest: no respiratory distress, no accessory muscle use, + pertinent finding (bases diminished at bases but L santana diminished up to mid lung; minimal crackles at bases) Cardiovascular: regular rate, rhythm Abdomen/GI: normal bowel sounds, non tender, soft Extremities/Musculoskelatal: + swelling (b/l lower extremity edema +1-2 pitting ) Neurologic/Psych: alert, oriented x 3 Skin: normal color, warm/dry Diagnostics Laboratory Results Results Past 24 Hours Test 03/05/18 14:53 03/05/18 16:16 Range/Units White Blood Count 9.83 4.8-10.8 K/uL Red Blood Count 5.05 4.7-6.1 M/uL Hemoglobin 14.1 14.0-18.0 g/dL Hematocrit 41.4 42-52 % Mean Corpuscular Volume 82.0 80-100 fL Mean Corpuscular Hemoglobin 27.9 25-34 pg Mean Corpuscular Hemoglobin Concent 34.1 32-36 g/dl Platelet Count 189 130-400 K/uL Mean Platelet Volume 12.7 7.4-10.4 fL Neutrophils (%) (Auto) 79.8 % Lymphocytes (%) (Auto) 12.2 % Monocytes (%) (Auto) 6.8 % Eosinophils (%) (Auto) 0.7 % Basophils (%) (Auto) 0.2 % Neutrophils # (Auto) 7.84 1.4-6.5 K/uL Lymphocytes # (Auto) 1.20 1.2-3.4 K/uL Monocytes # (Auto) 0.67 0.11-0.59 K/uL Eosinophils # (Auto) 0.07 0-0.5 K/uL Basophils # (Auto) 0.02 0-0.2 K/uL RDW Standard Deviation 44.7 36.4-46.3 fL RDW Coefficient of Variation 15.1 11.5-14.5 % Immature Granulocyte % (Auto) 0.3 % Immature Granulocyte # (Auto) 0.03 0.00-0.02 K/uL Sodium Level 130 136-145 mmol/L Potassium Level 4.2 3.5-5.1 mmol/L Chloride Level 92 98-107 mmol/L Carbon Dioxide Level 28 21-32 mmol/L Anion Gap 10.0 3-11 mmol/L Blood Urea Nitrogen 46 7-18 mg/dl Creatinine 1.74 0.60-1.40 mg/dl Est Creatinine Clear Calc Drug Dose 42.5 ml/min Estimated GFR () 46.0 Estimated GFR (Non- 39.7 BUN/Creatinine Ratio 26.3 10-20 Random Glucose 289 70-99 mg/dl Calcium Level 9.1 8.5-10.1 mg/dl Total Bilirubin 1.1 0.2-1 mg/dl Aspartate Amino Transf (AST/SGOT) 176 15-37 U/L Alanine Aminotransferase (ALT/SGPT) 207 12-78 U/L Alkaline Phosphatase 175 45-117 U/L Troponin I 0.047 0.041 0-0.045 ng/ml Pro-B-Type Natriuretic Peptide 99227 0-900 pg/ml Total Protein 6.5 6.4-8.2 gm/dl Albumin 3.0 3.4-5.0 gm/dl Globulin 3.5 2.5-4.0 gm/dl Albumin/Globulin Ratio 0.8 0.9-2 Lipase 228 73-393 U/L Diagnostic Radiology CHEST ONE VIEW PORTABLE FINDINGS: Cardiac silhouette is moderately enlarged, unchanged. Right median sternotomy. Atherosclerosis of the aorta. No pneumothorax. Small right and moderate left pleural effusions with persistent bibasilar hazy opacities. Mild pulmonary edema is unchanged. Bones of the chest appear grossly intact. Degenerative changes are seen within the shoulders and spine. IMPRESSION: 1. Cardiomegaly with persistent mild pulmonary edema. 2. Small right and moderate left pleural effusions with persistent bibasilar opacities suggesting atelectasis or pneumonitis. BILIARY ULTRASOUND FINDINGS: The pancreas is poorly visualized. No definite masses were evident. There are no focal hepatic masses. There is no ductal dilatation. There are multiple gallstones. There is a small amount of biliary sludge. There is no gallbladder wall thickening and no evidence of pericholecystic fluid. The gallbladder was mildly distended. The common bile duct measures 6 mm. There is no right-sided hydronephrosis. There is a small right pleural effusion. IMPRESSION: 1. Cholelithiasis. Mildly distended gallbladder which in addition contains sludge. 2. 6 mm common bile duct 3. Small right pleural effusion EKG Normal sinus rhythm with sinus arrhythmia Possible Left atrial enlargement Left axis deviation Non-specific intra-ventricular conduction block Inferior infarct , age undetermined Possible Anterolateral infarct (cited on or before 27-JAN-2018) Abnormal ECG When compared with ECG of 20-FEB-2018 09:19, Premature atrial complexes are no longer Present Questionable change in initial forces of Septal leads ... Impression Assessment and Plan Mr. Cook is a 68 y/o male with PMHx of Mixed Systolic/Diastolic CHF, Esophageal Stenosis, Esophageal Ulcers, T2DM, Paroxysmal Atrial Fibrillation, CKD Stage III, and Hyperthyroidism who presents to the ED c/o progressive SOB, difficulty swallowing, and increased weakness. Patient has had long standing issues with CHF and dysphagia requiring multiple admission. Chronic Dysphagia with Known Esophageal Ulcers and Esophageal Stenosis: - It appears his emesis is more regurgitation vs induced by forceful coughing due to thickened sputum - Mucinex BID to thin secretions - Start full liquid diet and place NPO at midnight pending possible intervention - [email or web address] - appreciate input - was due for EGD and colonoscopy on Sunday -- Appears colonscopy was just for routine screening per patient Possible Aspiration Pneumonitis: - Will order CT scan to further assess pleural effusions and possibility of consolidation - Will hold on Abx given afebrile and without leukocytosis until CT assessed; Listed Prednisone as allergy? However is appropriately oxygenating on RA Dehydration: - Oral mucosa is extremely dry but will be extremely cautious with hydration as he does have edema in legs and pleural effusions - will only give 1 bag and reassess Chronic Mixed Diastolic/Systolic CHF: - Does have peripheral edema and pleural effusions; no JVD and oral mucosa dry - Hold diuretics - Torsemide/Spironolactone at this time with gentle hydration - Chronically elevated BNP - question of loculated fluid? May benefit from thoracentesis but unsure if this would be performed at this time given he is oxygenating appropriately on RA Paroxysmal Atrial Fibrillation and HTN: - Not on AC which is likely related to esophageal ulcers? - Losartan 25 mg daily, Lopressor 25 mg BID, Imdur 30 mg daily CKD Stage III: Baseline - Continue to monitor and avoid nephrotoxins DVT Prophylaxis: SCDs Code Status: FULL RESUSCITATION Disposition: - Appreciate GI intervention; await CT for further evaluation of lungs - possible D/C next 1-2 days Resuscitation Status VTE Prophylaxis Will order VTE Prophylaxis: Yes Reviewed: Pt Seen/Exam by Me History Pt is no longer with n/v. Swallowing issues are still the same. Pt does admit to coughing/choking after emesis at times given issues with swallowing. No abd pain. Denies chest pain, SOB. Agree with HPI/ROS as noted by PA. General Appearance: WD/WN, no apparent distress Eye Exam: bilateral eye normal inspection, bilateral eye other (nml sclerae) Respiratory: normal breath sounds, no respiratory distress Cardiovascular: normal peripheral pulses, regular rate, rhythm Gastrointestinal: non tender, soft Extremities: non-tender, no pedal edema Neurologic/Psychiatric: alert, oriented x 3, other (depressed affect) Skin Characteristics: normal color, warm/dry Assessment/Plan Agree with plan as outlined above CXR and CT with possible PNA WBC WNL, afebrile, however given aspiration risk will start levaquin Liver US noted, stones/sludge are not new, but CBD dilation is LFTs elevated GI c/s pending Pt was for esophageal dilation later this week GI c/s BNP chronically elevated Trop elevated but minimally, serials pending
--- NOTE | 2018-03-05 19:47 | DIAGNOSTIC IMAGING REPORT ---
(CHEST) THORAX WITHOUT CLINICAL HISTORY: SOB/Pleural Effusions/Aspiration COUGH COMPARISON STUDY: December 30, 2017, chest x-ray dated 03/05/2018 CT DOSE: 481.48 mGy.cm TECHNIQUE: CT of the thorax was performed from the thoracic inlet to the lung bases. Images are reviewed in the axial, sagittal, and coronal planes. IV contrast was not administered for this examination. A dose lowering technique was utilized adhering to the principles of ALARA. FINDINGS: Thyroid: There is a multinodular thyroid goiter. Thoracic aorta: The thoracic aorta is normal in course and caliber, noting standard 3 vessel arch anatomy. Heart: The heart is mildly enlarged. There are coronary artery calcifications. Lungs and pleural spaces: There is slight enlargement of the moderate bilateral pleural effusions left larger than right. Lower lobe airspace opacities likely representing compressive atelectasis. This is progressive within the left lower lobe. One cannot exclude a superimposed infectious/inflammatory process. Mediastinum: There are mildly enlarged mediastinal lymph nodes similar to the prior study. Kelly: The hilar structures are difficult to assess given the lack of intravenous contrast. Mildly enlarged hilar lymph nodes are suspected Axilla: There is no evidence of pathologic adenopathy Upper abdomen: Partially visualized upper abdominal viscera is within normal limits. Skeletal structures: There are no lytic or blastic osseous lesions. IMPRESSION: 1. Slight enlargement in the bilateral pleural effusions left greater than right 2. Bilateral lower lobe airspace opacities left greater than right, statistically atelectatic, although a superimposed inflammatory process cannot be excluded 3. Stable mediastinal lymphadenopathy 4. Multinodular thyroid goiter 5. Cardiomegaly and coronary artery calcifications. Electronically signed by: Valentin Werner M.D. 03/05/2018 7:45 PM Dictated Date/Time: 03/05/2018 7:41 PM
[2018-03-05 20:57] VITALS: BP 104/71; PULSE 94; TEMP 36.6; O2SAT 96; Ht 177.8 cm; Wt 79.4 kg
[2018-03-05] MEDS ORDERED: INSULIN ASPART 100 UNITS/ML 3 ML PEN SC SCH (21:00)
[2018-03-05] MEDS: METOPROLOL TARTRATE 25 MG TAB PO SCH (21:00)
[2018-03-05] MEDS: LEVOFLOXACIN / D5W 750 MG in PREMIXED IN D5W 150 ML IV SCH (21:28)
[2018-03-05] MEDS: PANTOprazole SOD 40 MG TAB PO SCH (21:29)
[2018-03-05] MEDS: GUAIFENESIN 600 MG TABCR PO SCH (21:29)
[2018-03-05] MEDS ORDERED: NURSING VERBAL MED ORDER ONE (21:45)
[2018-03-05 23:08] VITALS: BP 93/57; PULSE 82; TEMP 36.9; O2SAT 94
[2018-03-06] VITALS: BP_SYST 73; BP_SYST 74; BP_DIAS 39; BP_DIAS 43; PULSE 74; TEMP 36.7; O2SAT 90
[2018-03-06] MEDS: INSULIN ASPART 100 UNITS/ML 3 ML PEN SC SCH ×4 (00:12→18:30)
[2018-03-06 03:07] VITALS: BP 99/66; PULSE 92; TEMP 36.4; O2SAT 93
[2018-03-06 06:23] LABS: HEMATOCRIT 39.2 % (42-52); HEMOGLOBIN 13.2 g/dL (14.0-18.0); MEAN CELL VOLUME 82.9 fL (80-100); MEAN CORPUSCULAR HEMOGLOBIN 27.9 pg (25-34); MEAN CORPUSCULAR HGB CONC 33.7 g/dl (32-36); MEAN PLATELET VOLUME 11.9 fL (7.4-10.4); PLATELET COUNT 152 K/uL (130-400); RED CELL DISTRIBUTION WIDTH CV 15.1 % (11.5-14.5); RED CELL DISTRIBUTION WIDTH SD 45.7 fL (36.4-46.3); WHITE BLOOD COUNT 9.31 K/uL (4.8-10.8)
[2018-03-06 06:59] LABS: CALCIUM 8.6 mg/dl (8.5-10.1); CREATININE 1.45 mg/dl (0.60-1.40); POTASSIUM 4.1 mmol/L (3.5-5.1)
[2018-03-06 07:24] VITALS: BP 103/71; PULSE 92; TEMP 36.5; O2SAT 91
--- NOTE | 2018-03-06 08:59 | Hospitalist Progress Note ---
Hospitalist Progress Note Date of Service Mar 06, 2018. (Shaista Ambrose PA-C) Subjective Pt evaluation today including: conversation w/ patient, physical exam, chart review, lab review, review of studies, conversation w/ disaster recovery consultant (GI) Pain: None PO Intake: NPO, poor overall Voiding: no voiding problems The patient was seen and examined this morning. Pt reports feeling very weak overall. He has lost approximately 20 pounds in the past month due to very poor oral intake. He has recently started boost within the last week. Patient notes that he is having difficulty with swallowing any dry substance. He is tolerating thin liquids without any difficulty. Patient notes that when he coughs d/t sensation of choking on food he sometimes experiences a coughing fit so badly that this causes him to vomit. He has been coughing, productive, mucus is white and "foamy" even when he does not elicited by a coughing fit. Patient has been progressively short of breath and is unable to go more than 10 steps without becoming winded. Patient was informed that and EGD would not be performed today. This was discussed with Cristina Corona over the phone. We will continue to evaluate him with a speech evaluation today. If needed then may be able to set up EGD for tomorrow. He has an outpatient EGD set up for Sunday this week. Patient was also scheduled for colonoscopy, however would unlikely be able to tolerate colonoscopy prep therefore this has been canceled. MRCP for eval of LFTs. Additional Comments: Constitutional: No fever, sweats or chills, + weight loss ~20lbs, poor oral intake Eyes: No diplopia, no worsening or blurred vision ENT: normal hearing, + trouble swallowing -see HPI Respiratory: + cough, sputum, dyspnea at rest and on exertion Cardiovascular: No chest pain, tightness or palpitations Abdomen: No pain, + nausea, vomiting, no diarrhea or constipation, last BM was 1 -2days ago the patient reports due to poor oral intake. Musculoskeletal: No joint pain, calf pain, +lower extremity swelling Neurologic: No numbness/tingling, or balance problems Skin: No rash or itch (Shaista Ambrose PA-C) Objective Vital Signs Date Time Temp Pulse Resp B/P (MAP) Pulse Ox O2 Delivery O2 Flow Rate FiO2 4/18/18 08:00 Room Air 03/06/18 07:24 36.5 92 18 103/71 (82) 91 Room Air 03/06/18 04:00 Room Air 03/06/18 03:07 36.4 92 18 99/66 (77) 93 Room Air 03/06/18 00:00 Room Air 03/05/18 23:08 36.9 82 20 93/57 (69) 94 Room Air 03/05/18 20:57 36.6 94 18 104/71 96 Room Air 03/05/18 20:11 78 20 95/71 98 03/05/18 19:24 92 22 98 Room Air 03/05/18 17:39 94 24 103/80 98 Room Air 03/05/18 16:20 93 17 110/75 97 Room Air 03/05/18 14:20 96 03/05/18 13:54 36.3 98 18 106/79 96 Room Air (Shaista Ambrose PA-C) Physical Exam Notes: General: awake, alert, no apparent distress, decreased mood, appears thinner than when I saw the patient last fall. Head: Normocephalic, atraumatic ENT: PERRL, EOMI, no pharyngeal exudate, mucous membranes slightly dry Chest: on room air, + RLL- RML crackles, diminished breath sounds in the right and left base, no wheezes or rales Cardiac: Regular rate and rhythm, no murmur, no JVD, normal peripheral pulses, good capillary refill Abdominal: NABS x 4 quadrants, soft, nontender to palpation, no rebound, guarding or tenderness Extremities: Normal inspection, +2 peripheral edema BLE, no erythema, calfs nontender to palpation Psych: Decreased mood and flat affect Neuro: AAO x 3, no motor deficits, speech is clear, no peripheral sensory deficits (Shaista Ambrose PA-C) Laboratory Results Last 24 Hours Test 03/05/18 14:53 03/05/18 16:16 03/05/18 20:43 03/06/18 00:05 White Blood Count 9.83 K/uL Red Blood Count 5.05 M/uL Hemoglobin 14.1 g/dL Hematocrit 41.4 % Mean Corpuscular Volume 82.0 fL Mean Corpuscular Hemoglobin 27.9 pg Mean Corpuscular Hemoglobin Concent 34.1 g/dl Platelet Count 189 K/uL Mean Platelet Volume 12.7 fL Neutrophils (%) (Auto) 79.8 % Lymphocytes (%) (Auto) 12.2 % Monocytes (%) (Auto) 6.8 % Eosinophils (%) (Auto) 0.7 % Basophils (%) (Auto) 0.2 % Neutrophils # (Auto) 7.84 K/uL Lymphocytes # (Auto) 1.20 K/uL Monocytes # (Auto) 0.67 K/uL Eosinophils # (Auto) 0.07 K/uL Basophils # (Auto) 0.02 K/uL RDW Standard Deviation 44.7 fL RDW Coefficient of Variation 15.1 % Immature Granulocyte % (Auto) 0.3 % Immature Granulocyte # (Auto) 0.03 K/uL Sodium Level 130 mmol/L Potassium Level 4.2 mmol/L Chloride Level 92 mmol/L Carbon Dioxide Level 28 mmol/L Anion Gap 10.0 mmol/L Blood Urea Nitrogen 46 mg/dl Creatinine 1.74 mg/dl Est Creatinine Clear Calc Drug Dose 42.5 ml/min Estimated GFR () 46.0 Estimated GFR (Non- 39.7 BUN/Creatinine Ratio 26.3 Random Glucose 289 mg/dl Calcium Level 9.1 mg/dl Total Bilirubin 1.1 mg/dl Aspartate Amino Transf (AST/SGOT) 176 U/L Alanine Aminotransferase (ALT/SGPT) 207 U/L Alkaline Phosphatase 175 U/L Troponin I 0.047 ng/ml 0.041 ng/ml Pro-B-Type Natriuretic Peptide 65802 pg/ml Total Protein 6.5 gm/dl Albumin 3.0 gm/dl Globulin 3.5 gm/dl Albumin/Globulin Ratio 0.8 Lipase 228 U/L Bedside Glucose 270 mg/dl 243 mg/dl Test 03/06/18 05:27 03/06/18 06:10 White Blood Count 9.31 K/uL Red Blood Count 4.73 M/uL Hemoglobin 13.2 g/dL Hematocrit 39.2 % Mean Corpuscular Volume 82.9 fL Mean Corpuscular Hemoglobin 27.9 pg Mean Corpuscular Hemoglobin Concent 33.7 g/dl RDW Standard Deviation 45.7 fL RDW Coefficient of Variation 15.1 % Platelet Count 152 K/uL Mean Platelet Volume 11.9 fL Sodium Level 132 mmol/L Potassium Level 4.1 mmol/L Chloride Level 96 mmol/L Carbon Dioxide Level 30 mmol/L Anion Gap 6.0 mmol/L Blood Urea Nitrogen 43 mg/dl Creatinine 1.45 mg/dl Est Creatinine Clear Calc Drug Dose 51.0 ml/min Estimated GFR () 57.3 Estimated GFR (Non- 49.5 BUN/Creatinine Ratio 29.6 Random Glucose 101 mg/dl Calcium Level 8.6 mg/dl Bedside Glucose 132 mg/dl (Shaista Ambrose, PAYakelin) Assessment and Plan Mr. Cook is a 68 y/o male with PMHx of Mixed Systolic/Diastolic CHF, Esophageal Stenosis, Esophageal Ulcers, T2DM, Paroxysmal Atrial Fibrillation, CKD Stage III, and Hyperthyroidism who presents to the ED c/o progressive SOB, difficulty swallowing, and increased weakness. Patient has had long standing issues with CHF and dysphagia requiring multiple admission. Chronic Dysphagia with Known Esophageal Ulcers and Esophageal Stenosis Elevated Transaminases - It appears his emesis is more regurgitation vs induced by forceful coughing due to thickened sputum - Mucinex BID to thin secretions - Allow full liquid diet today since no plans for EGD today per discussion with Cristina Corona with GI, - plans to eval with MRCP with elevated LFTs. - was due for EGD and colonoscopy on Sunday - Colonoscopy has been canceled due to patient's likely inability to tolerate the prep, also has low blood pressure Possible Aspiration Pneumonitis: - Speech therapy consulted - CT of the chest on 03/05: Slight enlargement in the bilateral pleural effusions left greater than right, Bilateral lower lobe airspace opacities left greater than right, Stable mediastinal lymphadenopathy, Multinodular thyroid goiter, Cardiomegaly and coronary artery calcifications. - Continue Levaquin (started 03/05), incentive spirometry, flutter Dehydration: - Oral mucosa is extremely dry upon presentation, was administered 1 L NSS overnight - no more fluid at this time with severe peripheral edema. Mild Protein Calorie Malnutrition - Continue boost supplementation as he recently started this at home. Chronic Mixed Diastolic/Systolic CHF: - Does have peripheral edema and pleural effusions; no JVD and oral mucosa dry - Hold diuretics - Torsemide/Spironolactone at this time - Chronically elevated BNP - question of loculated fluid? May benefit from thoracentesis but unsure if this would be performed at this time given he is oxygenating appropriately on RA Paroxysmal Atrial Fibrillation and HTN: - Not on AC which is likely related to esophageal ulcers? - Losartan 25 mg daily, Lopressor 25 mg BID, Imdur 30 mg daily DANIEL on CKD Stage III: Baseline on 1.2-1.3, elevated at 1.7 upon admission and now trending down to 1.45 - Continue to monitor and avoid nephrotoxins- allow losartan DVT Prophylaxis: SCDs, heparin subq Code Status: FULL RESUSCITATION Disposition: From home, lives alone, PT/OT evals, MRCP per GI. (Shaista Ambrose, ONESIMO) PA Physician Supervision Note: I interviewed and examined the patient. Discussed with Shaista Ambrose PAC and agree with findings and plan as documented in the note. Any exceptions or clarifications are listed here: None Patient is here with acute on chronic systolic and diastolic heart failure however he is having dysphagia to solids and is a known history of esophageal stricture previously dilated by Yovany also has a multinodular thyroid which may be impacting his swallowing additionally. Some of his diastolic heart failure is based upon atrial fibrillation Vital signs are temp of 36 5 pulse is 92 respiration 18 blood pressure is 108/71 Cardiac exam is regular lungs have crackles bibasilarly is normal active bowel sounds and soft continue to work up swallowing issues with barium swallow and VFSS, MRCP for abnormal LFT's and possible EGD in next few days chronic diastolic failure maintained in stable state with oral diuretics, and continue rate control with metoprolol Documented By: Christiano Bernal (Christiano Bernal M.D.)
[2018-03-06] MEDS: ISOSORBIDE MONONITRATE 30 MG TABCR PO SCH (10:20)
[2018-03-06] MEDS: GUAIFENESIN 600 MG TABCR PO SCH ×2 (10:20→22:59)
[2018-03-06] MEDS: PANTOprazole SOD 40 MG TAB PO SCH ×2 (10:20→20:50)
[2018-03-06] MEDS: LOSARTAN POTASSIUM 25 MG TAB PO SCH (10:21)
[2018-03-06] MEDS: METOPROLOL TARTRATE 25 MG TAB PO SCH ×2 (10:21→20:49)
--- NOTE | 2018-03-06 10:58 | Gastrointestinal Consultation ---
Gastrointestinal Consultation Date of Consultation: Mar 06, 2018 Attending Physician: Abdiel Consulting Physician: Reshma Reason for Consultation: dysphagia History of Present Illness Patient is a 68 year old male w/ history of dysphagia, esophageal stenosis w/ symptomatic improvement w/ dilation who presented to the ED yesterday for evaluation of SOB, cough and dysphagia. Pt was seen and evaluated, chart reviewed. Notes he has dysphagia to solids and liquids. Feels that he has difficulty both w/ food bolus and with sensation of food stick, pointing to his chest. Notes a lot of regurgitation. No nausea but + vomiting. No coffee ground emesis, hematemesis. Moving bowels well. No black or bloody stools. Was to have OP EGD and colonoscopy this Sunday. Pt does not want to have colonoscopy. Today , denies fever, chills, CP, SOB. On arrival, BNP 30,000 and troponin 0.04, w/ elevated liver enzymes Liver US 03/05/18: Cholelithiasis. Mildly distended gallbladder which in addition contains sludge. 6 mm common bile duct Small right pleural effusion Chest CT 03/05/18: Slight enlargement in the bilateral pleural effusions left greater than rightBilateral lower lobe airspace opacities left greater than right, statistically atelectatic, although a superimposed inflammatory process cannot be excluded Stable mediastinal lymphadenopathy Multinodular thyroid goiter Cardiomegaly and coronary artery calcifications EGD 01/14/18: Benign-appearing esophageal stenosis. Dilated.A small amount of food (residue) in the stomach. Normal examined duodenum. EGD 01/01/18: esophageal stricture, likely sequela of the healed ulcers Past Medical/Surgical History Medical Problems: (1) Abscess of right foot including toes Status: Acute (2) Acute chest pain Status: Acute (3) Acute congestive heart failure Status: Acute (4) DANIEL (acute kidney injury) Status: Acute (5) Cellulitis Status: Acute (6) CHF exacerbation Status: Acute (7) CHF exacerbation Status: Acute (8) Dehydration Status: Acute (9) Dehydration Status: Acute (10) Diabetic foot infection Status: Acute (11) Elevated LFTs Status: Acute (12) Elevated troponin Status: Acute (13) Insomnia Status: Acute (14) Intermittent epigastric abdominal pain Status: Acute (15) Leukocytosis Status: Acute (16) Lymphangitis, acute, lower leg Status: Acute (17) Pulmonary edema Status: Acute (18) Sepsis Status: Acute Past Medical History: Atrial fibrillation.Congestive heart failure.Diabetes.Hypercholesterolemia. Hypertension. Esophageal ulcers. Past Surgical History: EGD, Cardiac catheterization, Cardiac bypass. Family History Cancer Diabetes mellitus FH ischemic heart disease Social History Smoking Status: Former Smoker Alcohol Use: none Drug Use: none Marital Status: in relationship Housing Status: lives alone Occupation Status: employed Allergies Coded Allergies: Amoxicillin (Verified Allergy, Severe, hives swelling redness lip swelling , 03/05/18) Clavulanic Acid (Verified Allergy, Severe, hypotensive shock, 03/05/18) Iodinated Diagnostic Agents (Verified Allergy, Intermediate, HIVES, ) Prednisone (Verified Allergy, Intermediate, SHORTNESS OF BREATH, 03/05/18) as per patient Current Medications Home Meds and Scripts Medications Dose Route/Sig Max Daily Dose Days Date Category Dose Instructions Ondansetron HCl (Ondansetron) 4 Mg Tab 4 Mg PO Q4 PRN 03/05/18 Reported Magnesium 250 mg (Magnesium) 1 Tab Tab 250 Mg PO DAILY 03/05/18 Reported Demadex (Torsemide) 20 Mg Tab 20 Mg PO QAM 02/27/18 Reported Isosorbide Mononitrate ER (Isosorbide Mononitrate) 30 Mg Tabcr 1 Tab PO QAM 02/27/18 Reported Ferrous Sulfate 325 Mg Tab 1 Tab PO DIRECTED 02/27/18 Reported 1 TAB DAILY ALTERNATING 3TABS EVERY OTHER DAY Glucophage (Metformin Hcl) 500 Mg Tab 500 Mg PO BID 02/20/18 Reported Lantus Solostar (Insulin Glargine) 100 Unit/Ml Inj 12 Units SC QPM 02/20/18 Reported Protonix (Pantoprazole Sodium) 20 Mg Tab 40 Mg PO BID 01/08/18 Reported Aldactone (Spironolactone) 25 Mg Tab 25 Mg PO QAM 01/04/18 Reported Lopressor (Metoprolol Tartrate) 50 Mg Tab 25 Mg PO BID 12/29/17 Reported do not take if b/p less than 105, heart rate less than 60, Co Q 10 (Coenzyme Q10 (Ubidecarenone)) 100 Mg Cap 200 Mg PO DAILY 12/16/17 Reported Losartan Potassium 25 Mg Tab 25 Mg PO QAM 12/16/17 Reported Nitrostat (Nitroglycerin) 0.4 Mg Sub 0.4 Mg UT PRN PRN 08/10/17 Reported Vitamin B Complex (B-Complex Vitamins) 1 Tab Tab 1 Tab PO QAM 08/10/17 Reported Ascorbic Acid 1,000 Mg Tab 1,000 Mg PO BID 08/10/17 Reported Review of Systems Constitutional: No fever, No chills, No weight loss, No weakness Respiratory: + cough, + shortness of breath Cardiac: No chest pain, No edema Abdomen: + vomiting, + dysphagia, No pain, No nausea, No constipation, No GI bleeding Physical Exam Date Time Temp Pulse Resp B/P (MAP) Pulse Ox O2 Delivery O2 Flow Rate FiO2 03/06/18 08:00 Room Air 03/06/18 07:24 36.5 92 18 103/71 (82) 91 Room Air 03/06/18 04:00 Room Air 03/06/18 03:07 36.4 92 18 99/66 (77) 93 Room Air 03/06/18 00:00 Room Air 03/05/18 23:08 36.9 82 20 93/57 (69) 94 Room Air 03/05/18 20:57 36.6 94 18 104/71 96 Room Air 03/05/18 20:11 78 20 95/71 98 03/05/18 19:24 92 22 98 Room Air 03/05/18 17:39 94 24 103/80 98 Room Air 03/05/18 16:20 93 17 110/75 97 Room Air 03/05/18 14:20 96 03/05/18 13:54 36.3 98 18 106/79 96 Room Air General Appearance: no apparent distress Eyes: PERRL ENT: hearing grossly normal Neck: supple, trachea midline Respiratory/Chest: lungs clear, normal breath sounds Cardiovascular: regular rate, rhythm Abdomen: normal bowel sounds, non tender, soft, no organomegaly Neurologic/Psych: alert, normal mood/affect, oriented x 3 Skin: normal color, warm/dry, no rash Laboratory Results Last 24 Hours Test 03/05/18 14:53 03/05/18 16:16 03/05/18 20:43 03/06/18 00:05 White Blood Count 9.83 K/uL Red Blood Count 5.05 M/uL Hemoglobin 14.1 g/dL Hematocrit 41.4 % Mean Corpuscular Volume 82.0 fL Mean Corpuscular Hemoglobin 27.9 pg Mean Corpuscular Hemoglobin Concent 34.1 g/dl Platelet Count 189 K/uL Mean Platelet Volume 12.7 fL Neutrophils (%) (Auto) 79.8 % Lymphocytes (%) (Auto) 12.2 % Monocytes (%) (Auto) 6.8 % Eosinophils (%) (Auto) 0.7 % Basophils (%) (Auto) 0.2 % Neutrophils # (Auto) 7.84 K/uL Lymphocytes # (Auto) 1.20 K/uL Monocytes # (Auto) 0.67 K/uL Eosinophils # (Auto) 0.07 K/uL Basophils # (Auto) 0.02 K/uL RDW Standard Deviation 44.7 fL RDW Coefficient of Variation 15.1 % Immature Granulocyte % (Auto) 0.3 % Immature Granulocyte # (Auto) 0.03 K/uL Sodium Level 130 mmol/L Potassium Level 4.2 mmol/L Chloride Level 92 mmol/L Carbon Dioxide Level 28 mmol/L Anion Gap 10.0 mmol/L Blood Urea Nitrogen 46 mg/dl Creatinine 1.74 mg/dl Est Creatinine Clear Calc Drug Dose 42.5 ml/min Estimated GFR () 46.0 Estimated GFR (Non- 39.7 BUN/Creatinine Ratio 26.3 Random Glucose 289 mg/dl Calcium Level 9.1 mg/dl Total Bilirubin 1.1 mg/dl Aspartate Amino Transf (AST/SGOT) 176 U/L Alanine Aminotransferase (ALT/SGPT) 207 U/L Alkaline Phosphatase 175 U/L Troponin I 0.047 ng/ml 0.041 ng/ml Pro-B-Type Natriuretic Peptide 14340 pg/ml Total Protein 6.5 gm/dl Albumin 3.0 gm/dl Globulin 3.5 gm/dl Albumin/Globulin Ratio 0.8 Lipase 228 U/L Bedside Glucose 270 mg/dl 243 mg/dl Test 03/06/18 05:27 03/06/18 06:10 White Blood Count 9.31 K/uL Red Blood Count 4.73 M/uL Hemoglobin 13.2 g/dL Hematocrit 39.2 % Mean Corpuscular Volume 82.9 fL Mean Corpuscular Hemoglobin 27.9 pg Mean Corpuscular Hemoglobin Concent 33.7 g/dl RDW Standard Deviation 45.7 fL RDW Coefficient of Variation 15.1 % Platelet Count 152 K/uL Mean Platelet Volume 11.9 fL Sodium Level 132 mmol/L Potassium Level 4.1 mmol/L Chloride Level 96 mmol/L Carbon Dioxide Level 30 mmol/L Anion Gap 6.0 mmol/L Blood Urea Nitrogen 43 mg/dl Creatinine 1.45 mg/dl Est Creatinine Clear Calc Drug Dose 51.0 ml/min Estimated GFR () 57.3 Estimated GFR (Non- 49.5 BUN/Creatinine Ratio 29.6 Random Glucose 101 mg/dl Calcium Level 8.6 mg/dl Bedside Glucose 132 mg/dl Impression Patient is a 68 year old male admitted for SOB, dysphagia concern for aspiration pneumonia. On arrival, BNP elevated which looks chronic w/ elevated LFTS. RUQ US w/ gallstones, CBD 6. He does not have nausea but does report vomiting. Plan - Dysphagia - he is describing both transfer dysphagia and esophageal dysphagia - video swallow - speech evaluation - EGD timing to be determined - LFTs - MRCP - Daily LFTs - GI to follow, please call with any questions or concerns Attg add: I interviewed and examined pt, reviewed chart and labs. Pt with dysphagia, admit for resp symptoms that may be related to aspiration. Currently on abx for asp pneumo, sats WNL on RA. Will plan EGD later this week pending eval of resp status. Regarding his newly evelated LFT's - uls with stones but CBD is clear, and no clear source of drug induced liver injury -- check APAP level, MRCP
[2018-03-06 11:35] VITALS: BP 98/65; PULSE 85; TEMP 36.4; O2SAT 96
[2018-03-06 14:15] LABS: INR 1.2 (0.9-1.1); PTT PATIENT 28.5 SECONDS (21.0-31.0)
[2018-03-06 15:58] VITALS: BP 100/65; PULSE 88; TEMP 36.4; O2SAT 94
[2018-03-06] MEDS: BOOST GLUCOSE CONTROL PO SCH (16:45)
[2018-03-06] MEDS ORDERED: LANTUS PER UNIT CHARGE SC ONE (18:45)
[2018-03-06 19:48] VITALS: BP 100/61; PULSE 84; TEMP 36.4; O2SAT 94
[2018-03-06] MEDS: LEVOFLOXACIN / D5W 750 MG in PREMIXED IN D5W 150 ML IV SCH (20:49)
[2018-03-06] MEDS: HEPARIN SOD 5000 UNIT/0.5 ML CARP SQ SCH (20:50)
--- NOTE | 2018-03-06 23:02 | DIAGNOSTIC IMAGING REPORT ---
MRCP CLINICAL HISTORY: 68 years-old Male presenting with elevated LFTs, gallstones. TECHNIQUE: Multisequence, multiplanar MR imaging of the abdomen was performed without the use of intravenous contrast. IV contrast: None. COMPARISON: Ultrasound from the previous day. FINDINGS: Localizer images: Unremarkable for findings at the lung bases. Lung bases: Bibasilar consolidation and volume loss greater on the left. Multichamber enlargement of the heart. Moderate left and small right pleural effusions. Liver: Normal morphology. Biliary: No intrahepatic or extrahepatic biliary ductal dilatation. Intrahepatic biliary trifurcation. Gallbladder contains gallstones. No gallbladder wall thickening, pathologic gallbladder distention, or pericholecystic fluid or inflammatory change. Pancreas: Mild parenchymal atrophy. No pancreatic ductal dilatation. Spleen: Normal noncontrast appearance. Adrenal glands: Normal noncontrast appearance. Kidneys and ureters: Normal noncontrast appearance. No hydronephrosis. Normal ureters. Bowel: Normal noncontrast appearance. No bowel obstruction. Peritoneal cavity: No free fluid or intraperitoneal gas. Lymph nodes: No gross lymphadenopathy allowing for noncontrast technique. Vasculature: Normal noncontrast appearance. Abdominal wall: Normal. Musculoskeletal: Normal. IMPRESSION: 1. Physiologic distention of the gallbladder with cholelithiasis. No convincing evidence of cholecystitis. No biliary ductal dilatation. No evidence of choledocholithiasis 2. Evaluation of the hepatic parenchyma limited in the absence of intravenous contrast. If there are persistent elevated liver function tests, contrast-enhanced CT could be considered. 3. Moderate left and small right pleural effusions with extensive passive atelectasis. Electronically signed by: Matthew Mccabe M.D. 03/06/2018 11:00 PM Dictated Date/Time: 03/06/2018 10:55 PM
[2018-03-07] VITALS (8 sets, daily range): BP systolic 76–103; BP diastolic 42–69; PULSE 75–88; TEMP 36.3–36.7; O2SAT 95–96
[2018-03-07] MEDS ORDERED: ALBUMIN HUMAN 25% 12.5 GM/50 ML VIAL IV ONE (00:30)
[2018-03-07 06:00] LABS: HEMATOCRIT 39.4 % (42-52); HEMOGLOBIN 13.1 g/dL (14.0-18.0); MEAN CELL VOLUME 83.7 fL (80-100); MEAN CORPUSCULAR HEMOGLOBIN 27.8 pg (25-34); MEAN CORPUSCULAR HGB CONC 33.2 g/dl (32-36); MEAN PLATELET VOLUME 11.9 fL (7.4-10.4); PLATELET COUNT 152 K/uL (130-400); RED CELL DISTRIBUTION WIDTH CV 15.1 % (11.5-14.5); RED CELL DISTRIBUTION WIDTH SD 46.4 fL (36.4-46.3); WHITE BLOOD COUNT 10.67 K/uL (4.8-10.8)
[2018-03-07] MEDS: INSULIN ASPART 100 UNITS/ML 3 ML PEN SC SCH ×5 (06:00→20:47)
[2018-03-07 06:40] LABS: CALCIUM 8.6 mg/dl (8.5-10.1); CREATININE 1.72 mg/dl (0.60-1.40); POTASSIUM 4.6 mmol/L (3.5-5.1)
[2018-03-07] MEDS: BOOST GLUCOSE CONTROL PO SCH ×2 (07:30→16:45)
--- NOTE | 2018-03-07 08:43 | Hospitalist Progress Note ---
Hospitalist Progress Note Date of Service Mar 07, 2018. (Shaista Ambrose PA-C) Subjective Pt evaluation today including: conversation w/ patient, physical exam, chart review, lab review, review of studies Pain: None PO Intake: NPO for swallow eval Voiding: no voiding problems The patient was seen and examined this morning. Pt reports feeling quite irritated this morning as he has not been allowed to eat anything. He is frustrated overall that he is back in the hospital again, and also says his mood is down. He understands plan to perform a video swallow/barium swallow study later today. Patient states he would like to get cleaned out but once a nurse to go with him so he does not fall over due to weakness in the bathroom. He denies any lightheadedness or dizziness. Patient reports his breathing is okay this morning, no chest pain, palpitations or flutter. Additional Comments: Constitutional: No fever, sweats or chills, + weight loss ~20lbs, poor oral intake overall Eyes: No diplopia, no worsening or blurred vision ENT: normal hearing, + dysphasia, food sticking Respiratory: + cough occasionally, sputum, dyspnea on exertion slightly improved. Cardiovascular: No chest pain, tightness or palpitations Abdomen: No pain, no nausea or vomiting, no diarrhea or constipation, last BM was 2-3 days ago the patient reports due to poor oral intake. Musculoskeletal: No joint pain, calf pain, +lower extremity swelling Neurologic: No numbness/tingling, or balance problems Skin: No rash or itch (Shaista Ambrose, ONESIMO) Objective Vital Signs Date Time Temp Pulse Resp B/P (MAP) Pulse Ox O2 Delivery O2 Flow Rate FiO2 03/07/18 07:49 36.7 81 20 103/67 (79) 96 Room Air 03/07/18 04:26 83 94/60 (71) 03/07/18 04:00 Room Air 03/07/18 03:20 36.5 75 17 96 Room Air 03/07/18 02:37 91/57 (68) 03/07/18 00:19 76/42 (53) 03/06/18 23:59 Room Air 03/06/18 20:00 Room Air 03/06/18 19:48 36.4 84 18 100/61 (74) 94 Room Air 03/06/18 16:00 Room Air 03/06/18 15:58 36.4 88 20 100/65 (77) 94 Room Air 03/06/18 12:00 Room Air 03/06/18 11:35 36.4 85 20 98/65 (76) 96 Room Air (Shaista Ambrose PA-C) Physical Exam Notes: General: awake, alert, no apparent distress, decreased mood Head: Normocephalic, atraumatic ENT: PERRL, EOMI, no pharyngeal exudate, mucous membranes dry Chest: on room air, diminished breath sounds in the right base and left base up to the mid santana, + RLL crackles, no wheezes or rales Cardiac: Regular rate and rhythm, no murmur, no JVD, normal peripheral pulses, good capillary refill Abdominal: NABS x 4 quadrants, soft, nontender to palpation, no rebound, guarding or tenderness Extremities: Normal inspection, +2 peripheral edema BLE slightly improved, no erythema, calfs nontender to palpation Psych: Decreased mood and flat affect Neuro: AAO x 3, no motor deficits, speech is clear, no peripheral sensory deficits (Shaista Ambrose, MADAI-C) Laboratory Results Last 24 Hours Test 03/06/18 11:58 03/06/18 13:30 03/06/18 18:08 03/06/18 18:20 Bedside Glucose 171 mg/dl 349 mg/dl 327 mg/dl Prothrombin Time 12.8 SECONDS Prothromb Time International Ratio 1.2 Activated Partial Thromboplast Time 28.5 SECONDS Partial Thromboplastin Ratio 1.1 Test 03/07/18 00:05 03/07/18 05:39 Bedside Glucose 107 mg/dl White Blood Count 10.67 K/uL Red Blood Count 4.71 M/uL Hemoglobin 13.1 g/dL Hematocrit 39.4 % Mean Corpuscular Volume 83.7 fL Mean Corpuscular Hemoglobin 27.8 pg Mean Corpuscular Hemoglobin Concent 33.2 g/dl RDW Standard Deviation 46.4 fL RDW Coefficient of Variation 15.1 % Platelet Count 152 K/uL Mean Platelet Volume 11.9 fL Sodium Level 129 mmol/L Potassium Level 4.6 mmol/L Chloride Level 95 mmol/L Carbon Dioxide Level 28 mmol/L Anion Gap 6.0 mmol/L Blood Urea Nitrogen 42 mg/dl Creatinine 1.72 mg/dl Est Creatinine Clear Calc Drug Dose 43.0 ml/min Estimated GFR () 46.6 Estimated GFR (Non- 40.2 BUN/Creatinine Ratio 24.3 Random Glucose 133 mg/dl Calcium Level 8.6 mg/dl (Shaista Ambrose, ONESIMO) Assessment and Plan Mr. Cook is a 68 y/o male with PMHx of Mixed Systolic/Diastolic CHF, Esophageal Stenosis, Esophageal Ulcers, T2DM, Paroxysmal Atrial Fibrillation, CKD Stage III, and Hyperthyroidism who presents to the ED c/o progressive SOB, difficulty swallowing, and increased weakness. Patient has had long standing issues with CHF and dysphagia requiring multiple admission. Chronic Dysphagia with Known Esophageal Ulcers and Esophageal Stenosis Elevated Transaminases - It appears his emesis is more regurgitation vs induced by forceful coughing due to thickened sputum - Mucinex BID to thin secretions - Currently n.p.o. for video swallow/barium swallow today with history of dysphasia -may then follow with multinodular thyroid workup to see if this is possibly compressing the esophagus if no functional issues. - Pt states that dysphagia improved with dilation and then slowly worsened after several weeks to the point he's at now with dysphagia. -GI on board - appreciate recs - plans for EGD in the house tomorrow pending swallow studies. No c-scope - s/p MRCP 03/06 : + cholelithiasis, no cholecystitis or choledocholithiases. - Checking hepatitis panel, ANCA, EBV, CMV, celiacs panel - no meds appear to have autoimmune reaction however Possible Aspiration Pneumonitis: - Speech therapy consulted - Video swallow/barium swallow today - CT of the chest on 03/05: Slight enlargement in the bilateral pleural effusions left greater than right, Bilateral lower lobe airspace opacities left greater than right, Stable mediastinal lymphadenopathy, Multinodular thyroid goiter, Cardiomegaly and coronary artery calcifications. - Continue Levaquin (started 03/05), incentive spirometry, flutter Dehydration: Mild hyponatremia - Due to poor oral intake - was administered 1 L NSS initially- no more fluid at this time with severe peripheral edema, will monitor, speech swallow/barium swallow today - Check random urine sodium to r/o SIADH - Fluid restriction of 1500ml Mild Protein Calorie Malnutrition - Continue boost supplementation as he recently started this at home. Chronic Mixed Diastolic/Systolic CHF: - Does have peripheral edema and pleural effusions; no JVD and oral mucosa dry - Held diuretics - Torsemide/Spironolactone, fluid restriction - Chronically elevated BNP - question of loculated fluid? May benefit from thoracentesis - pt oxygenating appropriately on RA Paroxysmal Atrial Fibrillation HTN - Not on AC which is likely related to esophageal ulcers - Losartan 25 mg daily, Imdur 30 mg daily - Upon further review the patient is not taking Lopressor regularly at home - overnight SBP dropped into 70s, morning dose of Lopressor was held. Lopressor reduced to 12.5 mg BID and monitor to see if tolerates. DANIEL on CKD Stage III: Baseline on 1.2-1.3, elevated at 1.7 upon admission, today back upp around 1.7 - likely fluctuating due to NPO status - Continue to monitor and avoid nephrotoxins- allow losartan DM II - Continue ISS with accuchecks, given 1x dose of lantus last night. Glucoses stable currently, re-eval needs for insulin once diet allowed/ po intake improves. - A1C= 8.8 on 01/16 DVT Prophylaxis: SCDs, heparin subq Code Status: FULL RESUSCITATION Disposition: From home, lives alone, PT/OT evals, possible dc in ~ 2 days (Shaista Ambrose, PAYakelin) PA Physician Supervision Note: I interviewed and examined the patient. Discussed with Shaista Ambrose PAC and agree with findings and plan as documented in the note. Any exceptions or clarifications are listed here: None Patient underwent video swallow and esophageal barium swallow today which the barium swallow was terminated due to aspiration. Video swallow did suggest some mild aspiration which cleared with coughing and speech-language pathology has recommended dietary modifications and swallowing strategies to be undertaken to prevent aspiration. The patient is still scheduled for an endoscopy and 03/08. The patient also did have an MRCP without any significant abnormality seen. Subsequently will continue to treat this patient for possible aspiration pneumonia while we are waiting evaluation of his esophagus to see if any intervention is required such as dilation etc. Documented By: Christiano Bernal (Christiano Bernal M.D.)
[2018-03-07] MEDS ORDERED: BOOST GLUCOSE CONTROL PO SCH (09:00)
[2018-03-07] MEDS: METOPROLOL TARTRATE 25 MG TAB PO SCH ×2 (09:00→20:46)
[2018-03-07] MEDS: HEPARIN SOD 5000 UNIT/0.5 ML CARP SQ SCH ×2 (09:00→20:48)
[2018-03-07] MEDS: PANTOprazole SOD 40 MG TAB PO SCH ×2 (09:09→20:45)
[2018-03-07] MEDS: ISOSORBIDE MONONITRATE 30 MG TABCR PO SCH (09:10)
[2018-03-07] MEDS: LOSARTAN POTASSIUM 25 MG TAB PO SCH (09:10)
[2018-03-07] MEDS: GUAIFENESIN 600 MG TABCR PO SCH ×2 (09:10→20:46)
--- NOTE | 2018-03-07 09:40 | Gastroenterology Progress Note ---
Progress Note Date of Service: Mar 07, 2018 Subjective Pt evaluation today including: conversation w/ patient, physical exam, chart review, lab review Pt was seen and evaluated, chart reviewed. Had a hypotensive episode last evening after med administration. Tells me he is very frustrated nothing is being done and he is not eating. He was NPO for MRCP last evening and is now NPO for video swallow and speech evaluation. Pt notes he has continued dysphagia w/ soup last evening. Again he is having great difficultly explaining his symptoms, however, these symptoms sound like transfer dysphagia. He tells me he was started on a lot of new medications. Cannot tell me what they are called. MRCP negative. Denies fever, chills, CP, SOB. New Medications: - iron 03/04/18 - zofran 03/04/18 - lantus 02/13/18 - metformin 02/13/18 - imdur 02/01/18 - torsemide 02/01/18 - pantoprazole 12/24/17 - aldactone 01/07/18 MRCP 03/07/18: Physiologic distention of the gallbladder with cholelithiasis. No convincing evidence of cholecystitis. No biliary ductal dilatation. No evidence of choledocholithiasis Evaluation of the hepatic parenchyma limited in the absence of intravenous contrast. If there are persistent elevated liver function tests, contrast-enhanced CT could be considered. Moderate left and small right pleural effusions with extensive passive atelectasis. Liver US 03/05/18: Cholelithiasis. Mildly distended gallbladder which in addition contains sludge. 6 mm common bile duct Small right pleural effusion Chest CT 03/05/18: Slight enlargement in the bilateral pleural effusions left greater than right Bilateral lower lobe airspace opacities left greater than right, statistically atelectatic, although a superimposed inflammatory process cannot be excluded Stable mediastinal lymphadenopathy Multinodular thyroid goiter Cardiomegaly and coronary artery calcifications EGD 01/14/18: Benign-appearing esophageal stenosis. Dilated.A small amount of food (residue) in the stomach. Normal examined duodenum. EGD 01/01/18: esophageal stricture, likely sequela of the healed ulcers Review of Systems Constitutional: No fever, No chills, No weight loss, No weakness, No fatigue Respiratory: No cough, No shortness of breath Cardiac: No chest pain, No edema Abdomen: + dysphagia, No pain, No nausea, No vomiting, No diarrhea, No constipation, No GI bleeding Skin: No rash, No color change Medications Current Inpatient Medications Medications (Trade) Dose Ordered Sig/[place] Route Start Time Stop Time Status Last Admin Dose Admin Acetaminophen (Tylenol Tab) 650 mg Q4H PRN PO 03/05/18 19:15 04/04/18 19:14 Al Hydrox/Mg Hydrox/Simethicone (Maalox Max Susp) 15 ml Q4H PRN PO 03/05/18 19:15 04/04/18 19:14 Magnesium Hydroxide (Milk Of Magnesia Susp) 30 ml Q12H PRN PO 03/05/18 19:15 04/04/18 19:14 Ondansetron HCl (Zofran Inj) 4 mg Q6H PRN IV 03/05/18 19:15 04/04/18 19:14 03/06/18 08:00 4 MG Polyethylene (Miralax Powder Packet) 17 gm DAILY PRN PO 03/05/18 19:15 04/04/18 19:14 Glucose (Glucose 40% Gel) 15-30 GRAMS 15 GRAMS... UD PRN PO 03/05/18 19:15 04/04/18 19:14 Glucose (Glucose Chew Tab) 4-8 Tablets 4 Tabl... UD PRN PO 03/05/18 19:15 04/04/18 19:14 Dextrose (Dextrose 50% 50ML Syringe) 25-50ML OF 50% DW IV FOR... UD PRN IV 03/05/18 19:15 04/04/18 19:14 Glucagon (Glucagon Inj) 1 mg UD PRN SQ 03/05/18 19:15 04/04/18 19:14 Isosorbide Mononitrate (Imdur Ext Rel Tab) 30 mg QAM PO 03/06/18 09:00 04/05/18 08:59 03/07/18 09:10 30 MG Losartan Potassium (coZAAR TAB) 25 mg QAM PO 03/06/18 09:00 04/05/18 08:59 03/07/18 09:10 25 MG Metoprolol Tartrate (Lopressor Tab) 25 mg BID PO 03/05/18 21:00 04/04/18 20:59 03/06/18 20:49 25 MG Pantoprazole Sodium (Protonix Tab) 40 mg BID PO 03/05/18 21:00 04/04/18 20:59 03/07/18 09:09 40 MG Guaifenesin (Mucinex Contr Rel Tab) 1,200 mg Q12 PO 03/05/18 21:00 04/04/18 20:59 03/07/18 09:10 1,200 MG Levofloxacin 750 mg/Prmx 150 ml @ 100 mls/hr Q24H IV 03/05/18 21:00 03/12/18 20:44 03/06/18 20:49 100 MLS/HR Insulin Aspart (novoLOG ASPART) SLIDING SCALE If C... Q6 SC 03/06/18 00:00 04/04/18 20:59 03/06/18 18:30 6 UNITS Heparin Sodium (Porcine) (Heparin Sq 5000 Unit/0.5ml) 5,000 unit Q12 SQ 03/06/18 21:00 04/05/18 20:59 Enteral Nutritional Formula (Boost Glucose Control) 1 can BIDM PO 03/06/18 16:45 04/05/18 16:44 Objective Vital Signs Date Time Temp Pulse Resp B/P (MAP) Pulse Ox O2 Delivery O2 Flow Rate FiO2 03/07/18 08:00 Room Air 03/07/18 07:49 36.7 81 20 103/67 (79) 96 Room Air 03/07/18 04:26 83 94/60 (71) 03/07/18 04:00 Room Air 03/07/18 03:20 36.5 75 17 96 Room Air 03/07/18 02:37 91/57 (68) 03/07/18 00:19 76/42 (53) 03/06/18 23:59 Room Air 03/06/18 20:00 Room Air 03/06/18 19:48 36.4 84 18 100/61 (74) 94 Room Air 03/06/18 16:00 Room Air 03/06/18 15:58 36.4 88 20 100/65 (77) 94 Room Air 03/06/18 12:00 Room Air 03/06/18 11:35 36.4 85 20 98/65 (76) 96 Room Air Physical Exam General Appearance: no apparent distress Eyes: PERRL ENT: hearing grossly normal Neck: supple, trachea midline Respiratory/Chest: lungs clear, no respiratory distress, no accessory muscle use, + decreased breath sounds Cardiovascular: regular rate, rhythm, no gallop, no JVD Abdomen: normal bowel sounds, non tender, soft, no organomegaly Neurologic/Psych: alert, normal mood/affect, oriented x 3 Skin: normal color, no jaundice, warm/dry, no rash Laboratory Results Last 24 Hours Test 03/06/18 11:58 03/06/18 13:30 03/06/18 18:08 03/06/18 18:20 Bedside Glucose 171 mg/dl 349 mg/dl 327 mg/dl Prothrombin Time 12.8 SECONDS Prothromb Time International Ratio 1.2 Activated Partial Thromboplast Time 28.5 SECONDS Partial Thromboplastin Ratio 1.1 Test 03/07/18 00:05 03/07/18 05:39 03/07/18 06:15 Bedside Glucose 107 mg/dl 121 mg/dl White Blood Count 10.67 K/uL Red Blood Count 4.71 M/uL Hemoglobin 13.1 g/dL Hematocrit 39.4 % Mean Corpuscular Volume 83.7 fL Mean Corpuscular Hemoglobin 27.8 pg Mean Corpuscular Hemoglobin Concent 33.2 g/dl RDW Standard Deviation 46.4 fL RDW Coefficient of Variation 15.1 % Platelet Count 152 K/uL Mean Platelet Volume 11.9 fL Sodium Level 129 mmol/L Potassium Level 4.6 mmol/L Chloride Level 95 mmol/L Carbon Dioxide Level 28 mmol/L Anion Gap 6.0 mmol/L Blood Urea Nitrogen 42 mg/dl Creatinine 1.72 mg/dl Est Creatinine Clear Calc Drug Dose 43.0 ml/min Estimated GFR () 46.6 Estimated GFR (Non- 40.2 BUN/Creatinine Ratio 24.3 Random Glucose 133 mg/dl Calcium Level 8.6 mg/dl Assessment and Plan Patient is a 68 year old male admitted for SOB, dysphagia concern for aspiration pneumonia. On arrival, BNP elevated which looks chronic w/ elevated LFTS. RUQ US w/ gallstones, CBD 6. He does not have nausea but does report vomiting. MRCP negative. APAP and LFTs pending. - Dysphagia - NPO after midnight - EGD 03/08/19 - Pt has canceled colonoscopy - he is describing both transfer dysphagia and esophageal dysphagia - video swallow - speech evaluation - LFTs - MRCP negative - serology ordered - APAP pending - Daily LFTs - GI to follow, please call with any questions or concerns. 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 Believe symptoms are more pharyngeal w/ mild distal esophageal dysmotility. ATTESTATION I have performed a history and physical examination of this patient and reviewed the electronic record. Specifically, on physical examination there is no abdominal tenderness. I have discussed the case with Cristina RIVERA. The above note reflects my findings, conclusions, and recommendations. Jonathon Miranda MD
[2018-03-07 11:25] LABS: ALBUMIN 2.9 gm/dl (3.4-5.0); TOTAL PROTEIN 6.2 gm/dl (6.4-8.2)
--- NOTE | 2018-03-07 12:08 | DIAGNOSTIC IMAGING REPORT ---
(BARIUM SWALLOW) ESOPHAGUS CLINICAL HISTORY: Asses dysphagia COMPARISON STUDY: Chest CT 03/05/2018. FLUOROSCOPY TIME: 0.7 minutes.. FINDINGS: 11 fluoroscopic spot images obtained. The visualized esophagus is normal in course and caliber. The contours of the hypopharynx appear within normal limits. The test was terminated early due to aspiration. No hiatus hernia. IMPRESSION: Early termination of the study due to aspiration. Otherwise, no significant abnormality within the hypopharynx or esophagus on limited images. Electronically signed by: Satish Castro M.D. 03/07/2018 12:07 PM Dictated Date/Time: 03/07/2018 12:05 PM
--- NOTE | 2018-03-07 12:17 | DIAGNOSTIC IMAGING REPORT ---
VIDEO SWALLOW HISTORY: Aspiration Assess dysphagia TECHNIQUE: Video fluoroscopic evaluation of swallowing was performed in the AP and lateral projections by the speech pathology staff. The patient is fed nectar-thick and thin liquid barium, a barium coated wafer, and barium pudding. FLUOROSCOPY TIME: 2.8 minutes. NUMBER OF FLUOROSCOPY IMAGES: 0 COMPARISON STUDY: None. FINDINGS: With swallowing thin liquid barium, there was tracheal aspiration when swallowing via a cup. When swallowing nectar thick liquids there was no aspiration. When swallowing pudding and a cracker with paste, there is no aspiration. There was disordered esophageal motility. IMPRESSION: 1. Minimal aspiration of thin liquids when performing serial swallows. This was cleared with a cough. 2. Please see the speech pathologist report for detailed findings and recommendations. Electronically signed by: Valentin Werner M.D. 03/07/2018 12:15 PM Dictated Date/Time: 03/07/2018 12:14 PM
[2018-03-07 12:19] LABS: HEP C IGG 13 YRS+OLDER_RFLX NEG (NEG)
[2018-03-07] MEDS ORDERED: NURSING VERBAL MED ORDER ONE (15:45)
[2018-03-07] MEDS: LEVOFLOXACIN / D5W 750 MG in PREMIXED IN D5W 150 ML IV SCH (20:43)
[2018-03-08] VITALS (7 sets, daily range): BP systolic 92–106; BP diastolic 53–73; PULSE 81–88; TEMP 36.4–36.6; O2SAT 91–97
[2018-03-08 06:02] LABS: HEMATOCRIT 39.1 % (42-52); MEAN CELL VOLUME 82.7 fL (80-100); MEAN CORPUSCULAR HEMOGLOBIN 27.5 pg (25-34); MEAN CORPUSCULAR HGB CONC 33.2 g/dl (32-36); MEAN PLATELET VOLUME 11.4 fL (7.4-10.4); PLATELET COUNT 161 K/uL (130-400); RED CELL DISTRIBUTION WIDTH CV 15.3 % (11.5-14.5); RED CELL DISTRIBUTION WIDTH SD 45.8 fL (36.4-46.3); WHITE BLOOD COUNT 11.42 K/uL (4.8-10.8)
[2018-03-08 06:28] LABS: CALCIUM 8.3 mg/dl (8.5-10.1); CREATININE 1.56 mg/dl (0.60-1.40); POTASSIUM 4.3 mmol/L (3.5-5.1)
[2018-03-08] MEDS: INSULIN ASPART 100 UNITS/ML 3 ML PEN SC SCH ×2 (08:00→11:51)
[2018-03-08] MEDS: BOOST GLUCOSE CONTROL PO SCH (08:00)
--- NOTE | 2018-03-08 08:37 | Progress Note ---
Subjective Date of Service: Mar 08, 2018. Problem List Medical Problems: (1) Abscess of right foot including toes Status: Acute (2) Acute chest pain Status: Acute (3) Acute congestive heart failure Status: Acute (4) DANIEL (acute kidney injury) Status: Acute (5) Cellulitis Status: Acute (6) CHF exacerbation Status: Acute (7) CHF exacerbation Status: Acute (8) Dehydration Status: Acute (9) Dehydration Status: Acute (10) Diabetic foot infection Status: Acute (11) Elevated LFTs Status: Acute (12) Elevated troponin Status: Acute (13) Insomnia Status: Acute (14) Intermittent epigastric abdominal pain Status: Acute (15) Leukocytosis Status: Acute (16) Lymphangitis, acute, lower leg Status: Acute (17) Pulmonary edema Status: Acute (18) Sepsis Status: Acute Objective Vital Signs Date Time Temp Pulse Resp B/P (MAP) Pulse Ox O2 Delivery O2 Flow Rate FiO2 03/08/18 04:00 95 Room Air 03/08/18 03:20 36.5 84 18 92/56 (68) 97 Room Air 03/08/18 00:00 95 Room Air 03/08/18 00:00 36.6 82 93/53 (66) 95 Room Air 03/07/18 20:00 Room Air 03/07/18 19:10 36.3 88 18 96/66 (76) 96 Room Air 03/07/18 16:00 Room Air 03/07/18 15:24 36.5 78 16 90/55 (67) 95 Room Air 03/07/18 12:00 Room Air 03/07/18 10:25 36.4 79 20 103/69 (80) 95 Room Air Laboratory Results Last 24 Hours Test 03/07/18 10:32 03/07/18 10:55 03/07/18 12:29 03/07/18 16:26 Total Bilirubin 1.1 mg/dl Direct Bilirubin 0.5 mg/dl Aspartate Amino Transf (AST/SGOT) 95 U/L Alanine Aminotransferase (ALT/SGPT) 162 U/L Alkaline Phosphatase 183 U/L Total Protein 6.2 gm/dl Albumin 2.9 gm/dl Acetaminophen Level < 2 ug/ml Hepatitis B Surface Antigen NEG Hepatitis C Antibody NEG Urine Random Sodium 12 mEq/L Bedside Glucose 130 mg/dl 154 mg/dl Test 03/07/18 20:39 03/08/18 05:21 03/08/18 07:03 03/08/18 08:24 Bedside Glucose 220 mg/dl 77 mg/dl White Blood Count 11.42 K/uL Red Blood Count 4.73 M/uL Hemoglobin 13.0 g/dL Hematocrit 39.1 % Mean Corpuscular Volume 82.7 fL Mean Corpuscular Hemoglobin 27.5 pg Mean Corpuscular Hemoglobin Concent 33.2 g/dl RDW Standard Deviation 45.8 fL RDW Coefficient of Variation 15.3 % Platelet Count 161 K/uL Mean Platelet Volume 11.4 fL Sodium Level 130 mmol/L Potassium Level 4.3 mmol/L Chloride Level 95 mmol/L Carbon Dioxide Level 30 mmol/L Anion Gap 6.0 mmol/L Blood Urea Nitrogen 40 mg/dl Creatinine 1.56 mg/dl Est Creatinine Clear Calc Drug Dose 47.4 ml/min Estimated GFR () 52.5 Estimated GFR (Non- 45.3 BUN/Creatinine Ratio 25.3 Random Glucose 64 mg/dl Calcium Level 8.3 mg/dl Assessment and Plan 68 M presents with aspiration pneumonia, concern for aspiration, with PMHx of Mixed Systolic/Diastolic CHF, Esophageal Stenosis, Esophageal Ulcers, T2DM, Paroxysmal Atrial Fibrillation, CKD Stage III, and Hyperthyroidism Chronic Dysphagia with Known Esophageal Ulcers and Esophageal Stenosis - It appears his emesis is more regurgitation concern for aspiration pneumonia, Levaquin - Mucinex BID to thin secretions video swallow/barium swallow with aspiration of thin liquids, only recommended good swallowing techinques by LAMP DEVELOPER Preveiousl pt states that dysphagia improved with dilation an - plans for EGD 03/08 Transaminitis- s/p MRCP 03/06 : + cholelithiasis, no cholecystitis or choledocholithiases. -Negative hepatitis B panel, pending ANCA, EBV, CMV, celiacs panel - - CT of the chest on 03/05: Slight enlargement in the bilateral pleural effusions left greater than right, Bilateral lower lobe airspace opacities left greater than right, Stable mediastinal lymphadenopathy, Multinodular thyroid goiter, Cardiomegaly and coronary artery calcifications. hyponatremia random urine sodium to r/o SIADH - Fluid restriction of 1500ml Mild Protein Calorie Malnutrition- Continue boost supplementation Chronic Mixed Diastolic/Systolic CHF: Held diuretics - Torsemide/Spironolactone , fluid restriction Paroxysmal Atrial Fibrillation / HTN- Losartan 25 mg daily, Imdur 30 mg daily Lopressor reduced to 12.5 mg BID and monitor to see if tolerates, previous decision to not be on AC. DANIEL on CKD Stage III: Baseline on 1.2-1.3, elevated at 1.7 upon admission, today back upp around 1.7 - likely fluctuating due to NPO status - Continue to monitor and avoid nephrotoxins- allow losartan DM II - Continue ISS with accuchecks, given 1x dose of lantus last night. Glucoses stable currently, re-eval needs for insulin once diet allowed/ po intake improves. - A1C= 8.8 on 01/16 DVT Prophylaxis: SCDs, heparin subq Code Status: FULL RESUSCITATION
[2018-03-08 08:51] LABS: ALBUMIN 2.7 gm/dl (3.4-5.0); TOTAL PROTEIN 5.6 gm/dl (6.4-8.2)
[2018-03-08] MEDS: HEPARIN SOD 5000 UNIT/0.5 ML CARP SQ SCH (09:00)
[2018-03-08] MEDS: PANTOprazole SOD 40 MG TAB PO SCH (09:10)
[2018-03-08] MEDS: METOPROLOL TARTRATE 25 MG TAB PO SCH (09:10)
[2018-03-08] MEDS: GUAIFENESIN 600 MG TABCR PO SCH (09:10)
[2018-03-08] MEDS ORDERED: TRIAMCINOLONE ACET 40 MG/ML VIAL XX ONE (09:30)
--- NOTE | 2018-03-08 10:13 | History & Physical Bridge Note ---
H&P Re-Evaluation Bridge Note: I have examined the patient, reviewed the History & Physical and in the interval since the performance of the History & Physical I have noted the following changes of clinical significance: No changes noted
[2018-03-08] MEDS ORDERED: PROPOFOL IV EMULSION 10 MG/ML 20 ML VIAL IV ONE (10:48)
[2018-03-08] MEDS ORDERED: LIDOCAINE HCL 2% 2 ML VIAL (20MG/ML) ONE (10:48)
[2018-03-08] MEDS ORDERED: ETOMIDATE 2 MG/ML 20 ML VIAL IV ONE (10:48)
--- NOTE | 2018-03-08 11:29 | Anesthesiology Progress Note ---
Anesthesia Post Op Note Date & Time Mar 08, 2018 at 11:29 Vital Signs Pain Intensity: 0 Vital Signs Past 12 Hours Date Time Temp Pulse Resp B/P (MAP) Pulse Ox O2 Delivery O2 Flow Rate FiO2 03/08/18 11:20 71 18 101/71 (81) 93 Nasal Cannula 2 03/08/18 11:05 81 16 104/70 (81) 93 Room Air 03/08/18 10:53 79 16 95/64 (74) 91 Room Air 03/08/18 09:37 36.5 90 24 100/60 (73) 96 Room Air 03/08/18 08:00 Room Air 03/08/18 08:00 36.6 85 18 104/73 (83) 92 Room Air 03/08/18 04:00 95 Room Air 03/08/18 03:20 36.5 84 18 92/56 (68) 97 Room Air 03/08/18 00:00 95 Room Air 03/08/18 00:00 36.6 82 93/53 (66) 95 Room Air Notes Mental Status: alert / awake / arousable, participated in evaluation Pt Amnestic to Procedure: Yes Nausea / Vomiting: adequately controlled Pain: adequately controlled Airway Patency, RR, SpO2: stable & adequate BP & HR: stable & adequate Hydration State: stable & adequate Anesthetic Complications: no major complications apparent
[2018-03-08] MEDS: ISOSORBIDE MONONITRATE 30 MG TABCR PO SCH (11:50)
[2018-03-08] MEDS: LOSARTAN POTASSIUM 25 MG TAB PO SCH (11:50)
--- NOTE | 2018-03-08 13:07 | GI REPORT ---
Procedure Date: 03/08/2018 10:16 AM Procedure: Upper GI endoscopy Indications: Dysphagia Medicines: See the Anesthesia note for documentation of the administered medications Complications: No immediate complications. Estimated Blood Loss: Estimated blood loss: none. Procedure: Pre-Anesthesia Assessment: - ASA Grade Assessment: III - A patient with severe systemic disease. After obtaining informed consent, the endoscope was passed under direct vision. Throughout the procedure, the patient's blood pressure, pulse, and oxygen saturations were monitored continuously. The scope was introduced through the mouth, and advanced to the second part of duodenum. The upper GI endoscopy was accomplished without difficulty. The patient tolerated the procedure well. Findings: There was a diverticulum and mucosal bridging at 36 cm. There were multiple rings and mucosal bridging in the lower esophagus. The GE junction was at 41 cm. Exam was suspicious for underlying esophageal dysmotility, possibly burned out EOE. The esophagus and gastroesophageal junction were examined with white light from a forward view and retroflexed position. There were esophageal mucosal changes consistent with short-segment Waddell's esophagus, classified as Waddell's stage C0-M3 per Hatfield criteria. These changes involved the mucosa at the upper extent of the gastric folds (41 cm from the incisors) extending to the Z-line (38 cm from the incisors). One tongue of salmon-colored mucosa was present and salmon-colored mucosa was present. The maximum longitudinal extent of these esophageal mucosal changes was 3 cm in length. There was a small hiatal hernia. There were multiple diminutive gastric polyps in the fundus and body; the stomach mucosa was otherwise normal. The duodenum was normal. A TTS balloon was inflated to 15, 16.5 and 18 mm over the GE junction without disruption. A guidewire was placed and the scope was withdrawn. Dilation was performed at the gastroesophageal junction with a Savary dilator with no resistance at 18 mm. There was no disruption post passage of the 18 mm dilator. Biopsies taken from the tongue of Waddell's at 40 cm and 38 cm, and also from the esophageal body. Impression: Deformity of lower esophagus, with diverticulum and mucosal bridging. Exam concerning for underlying esophageal dysmotility, possibly burned out EOE. No significant esophageal obstruction; large bore dilator passed without trauma. Single tongue of Waddell's. Small HH. Diminutive gastric polyps. He likely has a mixed etiology for his dysphagia - speech pathology report suggests oropharyngeal dysphagia, and he may have underlying esophageal dysmotility as well. Recommendation: - Discharge patient to floor. - Consider neuro consult fto evaluate possible causes of o/p dysphagia; I assume that this is related to occult cerebrovasc disease. - Follow speech path recommendations. - He is at high risk for aspiration with cscopy prep. We discussed possibility of using an NG tube to decrease this prep. Pt does not want this; will defer cscopy for now. - Will sign off, but please reconsult as needed. Ehsan Justice M.D. Ehsan Justice MD 03/08/2018 1:06:43 PM This report has been signed electronically. Note Initiated On: 03/08/2018 10:16 AM I attest to the content of the Intraoperative Record and orders documented therein, exceptions below
[2018-03-08] MEDS ORDERED: LVQ750 PO (16:32)
--- NOTE | 2018-03-08 16:33 | Discharge Instructions ---
Discharge Instructions Date of Service Mar 08, 2018. Admission Reason for Admission: Aspiration Pneumonitis, Dehydration Discharge Discharge Diagnosis / Problem: aspiration pneumonia, esophageal diverticulum Discharge Goals Goal(s): Diagnostic testing, Therapeutic intervention Activity Recommendations Activity Limitations: as noted below Lifting Limitations: gradually increase as tolerated . Current Hospital Diet Patient's current hospital diet: Diabetes Type 2 Diet Discharge Diet Recommended Diet: Regular Diet (please have soft foods and easy to swallow foods) Procedures Procedures Performed: egd with dilitation and biopsy Pending Studies Studies pending at discharge: no Laboratory Results Hemoglobin A1c Test 01/16/18 14:25 Range/Units Estimated Average Glucose 206 mg/dl Hemoglobin A1c 8.8 H 4.5-5.6 % Lipid Panel Test 01/28/18 07:00 Range/Units Triglycerides Level 62 0-150 mg/dl Cholesterol Level 162 0-200 mg/dl HDL Cholesterol 46 mg/dl Cholesterol/HDL Ratio 3.5 LDL Cholesterol, Calculated 104 mg/dl Medical Emergencies . Who to Call and When: Medical Emergencies: If at any time you feel your situation is an emergency, please call 911 immediately. . Non-Emergent Contact Non-Emergency issues call your: Primary Care Provider, Assistant Real Estate Manager Call Non-Emergent contact if: temperature is above 101, your pain is unusual for you . . "Provider Documentation" section prepared by Christiano Bernal. .
--- NOTE | 2018-03-08 17:36 | Discharge Summary ---
Discharge Summary Date of Service Mar 08, 2018. Discharge Summary Admission Date: Mar 05, 2018 at 19:23 Discharge Date: Mar 08, 2018 Discharge Disposition: Home Principal Diagnosis: Aspiration pneumonia, esophageal motility with occaspiration on inspiration Immunizations: Have You Had Influenza Vaccine: No History of Tetanus Vaccine?: No History of Pneumococcal: No History of Hepatitis B Vaccine: No Medication Reconciliation New Medications: Levofloxacin (Levofloxacin) 750 Mg Tab 750 MG PO QPM, #7 TAB Continued Medications: Ascorbic Acid (Ascorbic Acid) 1,000 Mg Tab 1000 MG PO BID B-Complex Vitamins (Vitamin B Complex) 1 Tab Tab 1 TAB PO QAM Coenzyme Q10 (Ubidecarenone) (Co Q 10) 100 Mg Cap 200 MG PO DAILY Ferrous Sulfate (Ferrous Sulfate) 325 Mg Tab 1 TAB PO DIRECTED 1 TAB DAILY ALTERNATING 3TABS EVERY OTHER DAY Insulin Glargine (Lantus Solostar) 100 Unit/Ml Inj 12 UNITS SC QPM, PEN Isosorbide Mononitrate (Isosorbide Mononitrate ER) 30 Mg Tabcr 1 TAB PO QAM Losartan Potassium (Losartan Potassium) 25 Mg Tab 25 MG PO QAM Magnesium (Magnesium 250 mg) 1 Tab Tab 250 MG PO DAILY Metformin Hcl (Glucophage) 500 Mg Tab 500 MG PO BID, TAB Metoprolol Tartrate (Lopressor) (Lopressor) 50 Mg Tab 25 MG PO BID, TAB do not take if b/p less than 105, heart rate less than 60, Nitroglycerin (Nitrostat) 0.4 Mg Sub 0.4 MG UT PRN PRN for Chest Pain, BTL Ondansetron (Ondansetron HCl) 4 Mg Tab 4 MG PO Q4 PRN for Nausea or Vomiting Pantoprazole (Protonix) 20 Mg Tab 40 MG PO BID, #30 TAB Spironolactone (Aldactone) 25 Mg Tab 25 MG PO QAM, TAB Torsemide (Demadex) 20 Mg Tab 20 MG PO QAM, TAB Discharge Exam Review of Systems: Constitutional: No fever, No chills, No weakness Cardiovascular: No chest pain, No orthopnea, No edema Genitourinary - Male: No hematuria, No dysuria Neurologic: No memory loss, No paralysis, No weakness Physical Exam: General Appearance: WD/WN, no apparent distress Neck: supple, no JVD Respiratory/Chest: chest non-tender, lungs clear, normal breath sounds Cardiovascular: regular rate, rhythm, no murmur Abdomen / GI: normal bowel sounds, non tender, soft Hospital Course 68 M presents with aspiration pneumonia, concern for aspiration, with PMHx of Mixed Systolic/Diastolic CHF, Esophageal Stenosis, Esophageal Ulcers, T2DM, Paroxysmal Atrial Fibrillation, CKD Stage III, and Hyperthyroidism Chronic Dysphagia with Known Esophageal Ulcers and Esophageal Stenosis - concern for aspiration pneumonia, complete additioanal 7 days of Levaquin video swallow/barium swallow with aspiration of thin liquids, only recommended good swallowing techinques by TOPOGRAPHICAL DRAFTER I personally reinforced good attention to swallowing and his voiced an understanding - plans for EGD 03/08 without stenosis, distal esophageal diverticulum with mucosal bridging Transaminitis- s/p MRCP 03/06 : + cholelithiasis, no cholecystitis or choledocholithiases. -Negative hepatitis B panel, pending ANCA, EBV, CMV, celiacs panel - - CT of the chest on 03/05: Slight enlargement in the bilateral pleural effusions left greater than right, Bilateral lower lobe airspace opacities left greater than right, Stable mediastinal lymphadenopathy, Multinodular thyroid goiter, Cardiomegaly and coronary artery calcifications. hyponatremia random urine sodium has r/o SIADH Mild Protein Calorie Malnutrition- Continue boost supplementation Chronic Mixed Diastolic/Systolic CHF: Held diuretics - Torsemide/Spironolactone , fluid restriction Paroxysmal Atrial Fibrillation / HTN- Losartan 25 mg daily, Imdur 30 mg daily Lopressor reduced to 12.5 mg BID and monitor to see if tolerates, previous decision to not be on AC. DANIEL on CKD Stage III: Baseline on 1.2-1.3, elevated at 1.7 upon admission, today back upp around 1.7 - likely fluctuating due to NPO status - Continue to monitor and avoid nephrotoxins- allow losartan DM II - Continue ISS with accuchecks, given 1x dose of lantus last night. Glucoses stable currently, re-eval needs for insulin once diet allowed/ po intake improves. - A1C= 8.8 on 01/16 DVT Prophylaxis: SCDs, heparin subq Code Status: FULL RESUSCITATION Total Time Spent: Greater than 30 minutes This includes examination of the patient, discharge planning, medication reconciliation, and communication with other providers. Discharge Instructions Please refer to the electronic Patient Visit Report (Discharge Instructions) for additional information.
[2018-03-08] MEDS ORDERED: LEVOFLOXACIN 750 MG TAB PO SCH (21:00)
== END 2018-03-08 17:45 | disposition home or self-care (01) | DRG 178 ==
LOC: C.EDB 13:53 → C.2T 19:23 → ENRESERV 19:48
PROVIDERS: ADMIT Family Medicine; ATTEND Internal Medicine
PROC: 0DJ08ZZ Inspection of Upper Intestinal Tract, Via Natural or Artificial Opening Endoscopic (ICD-10-PCS; principal; 2018-03-08 09:35)
DX: J69.0 Pneumonitis due to inhalation of food and vomit (principal); I50.42 Chronic combined systolic (congestive) and diastolic (congestive) heart failure; K22.10 Ulcer of esophagus without bleeding; E44.1 Mild protein-calorie malnutrition; E87.1 Hypo-osmolality and hyponatremia; I13.0 Hypertensive heart and chronic kidney disease with heart failure and stage 1 through stage 4 chronic kidney disease, or unspecified chronic kidney disease; N17.9 Acute kidney failure, unspecified; I48.0 Paroxysmal atrial fibrillation; E11.9 Type 2 diabetes mellitus without complications; E78.5 Hyperlipidemia, unspecified; R74.0 Nonspecific elevation of levels of transaminase and lactic acid dehydrogenase [LDH]; E86.0 Dehydration; R47.02 Dysphasia; I44.7 Left bundle-branch block, unspecified; N18.3 Chronic kidney disease, stage 3 (moderate); I25.2 Old myocardial infarction; Z79.4 Long term (current) use of insulin; Z87.01 Personal history of pneumonia (recurrent); Z80.9 Family history of malignant neoplasm, unspecified; Z82.49 Family history of ischemic heart disease and other diseases of the circulatory system; Z83.3 Family history of diabetes mellitus

== ENCOUNTER 2018-03-10 23:24 | Emergency (ER) | payer OTHER, BC ==
[~2018-03-10] VITALS: Ht 177.8 cm; Wt 74.3 kg
[~2018-03-10 23:24] MED LIST changes: +LVQ750 PO; -MAGN250T8 PO
[2018-03-10 23:30] VITALS: TEMP 36.5; Ht 177.8 cm; Wt 74.3 kg
[2018-03-10 23:44] LABS: BASO % 0.3 %; BASO ABS # 0.03 K/uL (0-0.2); EOS % 1.9 %; EOS ABS # 0.22 K/uL (0-0.5); HEMATOCRIT 42.1 % (42-52); HEMOGLOBIN 14.4 g/dL (14.0-18.0); IG# 0.04 K/uL (0.00-0.02); LYMPH % 6.7 %; LYMPH ABS # 0.76 K/uL (1.2-3.4); MEAN CELL VOLUME 81.9 fL (80-100); MEAN CORPUSCULAR HGB CONC 34.2 g/dl (32-36); MEAN PLATELET VOLUME 11.7 fL (7.4-10.4); MONO % 7.7 %; MONO ABS # 0.88 K/uL (0.11-0.59); NEUT ABS # 9.49 K/uL (1.4-6.5); PLATELET COUNT 180 K/uL (130-400); RED CELL DISTRIBUTION WIDTH CV 15.4 % (11.5-14.5); WHITE BLOOD COUNT 11.42 K/uL (4.8-10.8)
[2018-03-10 23:48] VITALS: O2SAT 94
[2018-03-10 23:53] LABS: INR 1.1 (0.9-1.1); PTT PATIENT 29.2 SECONDS (21.0-31.0)
[2018-03-11 00:09] LABS: CALCIUM 8.4 mg/dl (8.5-10.1); CREATININE 1.84 mg/dl (0.60-1.40); POTASSIUM 4.4 mmol/L (3.5-5.1)
[2018-03-11 00:19] LABS: CKMB 2.9 ng/ml (0.5-3.6); TOTAL PROTEIN 6.6 gm/dl (6.4-8.2)
[2018-03-11] MEDS ORDERED: Mucinex PO (00:19)
--- NOTE | 2018-03-11 00:37 | EMERGENCY ROOM VISIT NOTE ---
History Report prepared by Farrah: Julian Chavez Under the Supervision of: Dr. Robin Monson D.O. First contact with patient: 23:31 Chief Complaint: SHORTNESS OF BREATH Stated Complaint: SHORTNESS OF BREATH Nursing Triage Summary: Patient arrived ALS for evaluation of shortness of breath that began approx 2100 this evening. Patient reports hx CHF. Patient had labwork done last week and doctors told him it looked like he was going to have an GA soon so they gave him Heparin. Patient then hemorrhaged from his esophagus due to ulcers. Patient was discharged Sunday after having his esophagus stretched. 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 History of Present Illness The patient is a 68 year old male who presents to the Emergency Room with complaints of worsening shortness of breath and weakness that he has been experiencing since he was discharged from an inpatient stay secondary to esophageal hemorrhage. The patient states that since going home he has been becoming increasing walk and is "unable to walk." He also notes feeling "super tired all the time." He describes his shortness of breath as "I cannot catch my wind," but adds that he has no chest pain at all. He also notes a significant increase in urinary frequency. Source of History: patient Onset: 2 days ago Position: chest Quality: other (SOB) Timing: worsening Associated Symptoms: + fatigue, + weakness, No chest pain Review of Systems See HPI for pertinent positives & negatives. A total of 10 systems reviewed and were otherwise negative. Past Medical & Surgical Medical Problems: (1) Abnormal EKG (2) Acute exacerbation of CHF (congestive heart failure) (3) Acute GI bleeding (4) acute Gi bleeding (5) Acute respiratory failure with hypoxemia (6) Aspiration pneumonitis (7) Atrial Fibrillation (8) CHF (congestive heart failure) (9) CHF (congestive heart failure) (10) Diab [place] Compl, Type Ii Or Unspec Type, Not Uncntrld (11) Hyperglycemia (12) Hyperlipidemia Nec/Nos (13) Hypertension Nos (14) Hypotensive shock (15) New left bundle branch block (16) NSTEMI (non-ST elevated myocardial infarction) (17) Old Myocardial Infarct (18) Pneumonia (19) Shortness of breath (20) SOB (shortness of breath) (21) Thrush (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, right Surgical Problems: (1) H/O cardiac catheterization (2) H/O heart artery stent (3) H/O heart bypass surgery (4) Status post double vessel coronary artery bypass Family History Cancer Diabetes mellitus FH ischemic heart disease Social History Smoking Status: Never Smoker Alcohol Use: none Drug Use: none Marital Status: in relationship Housing Status: lives alone Occupation Status: employed Current/Historical Medications Scheduled Ascorbic Acid (Ascorbic Acid), 1,000 MG PO BID B-Complex Vitamins (Vitamin B Complex), 1 TAB PO QAM Coenzyme Q10 (Ubidecarenone) (Co Q 10), 200 MG PO DAILY Ferrous Sulfate (Ferrous Sulfate), 325 MG PO UD Insulin Glargine (Lantus Solostar), 12 UNITS SC QPM Isosorbide Mononitrate (Isosorbide Mononitrate ER), 30 MG PO QAM Levofloxacin (Levofloxacin), 750 MG PO QPM Losartan Potassium (Losartan Potassium), 25 MG PO QAM Magnesium (Magnesium 250 mg), 250 MG PO DAILY Metformin Hcl (Glucophage), 500 MG PO BID Metoprolol Tartrate (Lopressor) (Lopressor), 25 MG PO BID Pantoprazole (Protonix), 40 MG PO BID Spironolactone (Aldactone), 25 MG PO QAM Torsemide (Demadex), 20 MG PO QAM [Mucinex], 1 CAP PO BID Scheduled PRN Nitroglycerin (Nitrostat), 0.4 MG UT UD PRN for Chest Pain Ondansetron (Ondansetron HCl), 4 MG PO Q4H PRN for Nausea or Vomiting Allergies Coded Allergies: Amoxicillin (Verified Allergy, Severe, hives swelling redness lip swelling , 03/08/18) Clavulanic Acid (Verified Allergy, Severe, hypotensive shock, 03/08/18) Iodinated Diagnostic Agents (Verified Allergy, Intermediate, HIVES, ) Prednisone (Verified Allergy, Intermediate, SHORTNESS OF BREATH, 03/08/18) as per patient Physical Exam Vital Signs Date Time Temp Pulse Resp B/P (MAP) Pulse Ox O2 Delivery O2 Flow Rate FiO2 03/10/18 23:48 94 Room Air 03/10/18 23:30 94 Room Air 03/10/18 23:30 36.5 101 18 126/85 94 Room Air Physical Exam CONSTITUTIONAL/VITAL SIGNS: Reviewed / noted above. GENERAL: Non-toxic in appearance. INTEGUMENTARY: Warm, dry, and [place]. HEAD: Normocephalic. EYES: without scleral icterus or trauma. ENT/OROPHARYNX: clear and moist. LYMPHADENOPATHY/NECK: Is supple without lymphadenopathy or meningismus. RESPIRATORY: Lungs clear and equal. CARDIOVASCULAR: Regular rate and rhythm. GI/ABDOMEN: Soft and nontender. No organomegaly or pulsatile mass. No rebound or guarding. Normal bowel sounds. EXTREMITIES: Warm and well perfused. Some edema present. BACK: No CVA tenderness. NEUROLOGICAL: Intact without focal deficits. PSYCHIATRIC: normal affect. MUSCULOSKELETAL: Normally developed with good muscle tone. Medical Decision & Procedures ER Provider Diagnostic Interpretation: Radiology results as stated below per my review: CHEST X-RAY: Shows bilateral pleural effusions, left greater than right. Basilar atelectasis vs infiltrate bilaterally. Compared to 03/05/2018 the right sided pleural effusion/interstitial changes are slightly worse. Laboratory Results 03/10/18 23:00 Red Blood Count 5.14, Mean Corpuscular Volume 81.9, Mean Corpuscular Hemoglobin 28.0, Mean Corpuscular Hemoglobin Concent 34.2, Mean Platelet Volume 11.7, Neutrophils (%) (Auto) 83.0, Lymphocytes (%) (Auto) 6.7, Monocytes (%) (Auto) 7.7, Eosinophils (%) (Auto) 1.9, Basophils (%) (Auto) 0.3, Neutrophils # (Auto) 9.49, Lymphocytes # (Auto) 0.76, Monocytes # (Auto) 0.88, Eosinophils # (Auto) 0.22, Basophils # (Auto) 0.03 03/10/18 23:00 Test 03/10/18 23:00 White Blood Count 11.42 K/uL (4.8-10.8) Red Blood Count 5.14 M/uL (4.7-6.1) Hemoglobin 14.4 g/dL (14.0-18.0) Hematocrit 42.1 % (42-52) Mean Corpuscular Volume 81.9 fL (80-100) Mean Corpuscular Hemoglobin 28.0 pg (25-34) Mean Corpuscular Hemoglobin Concent 34.2 g/dl (32-36) Platelet Count 180 K/uL (130-400) Mean Platelet Volume 11.7 fL (7.4-10.4) Neutrophils (%) (Auto) 83.0 % Lymphocytes (%) (Auto) 6.7 % Monocytes (%) (Auto) 7.7 % Eosinophils (%) (Auto) 1.9 % Basophils (%) (Auto) 0.3 % Neutrophils # (Auto) 9.49 K/uL (1.4-6.5) Lymphocytes # (Auto) 0.76 K/uL (1.2-3.4) Monocytes # (Auto) 0.88 K/uL (0.11-0.59) Eosinophils # (Auto) 0.22 K/uL (0-0.5) Basophils # (Auto) 0.03 K/uL (0-0.2) RDW Standard Deviation 46.0 fL (36.4-46.3) RDW Coefficient of Variation 15.4 % (11.5-14.5) Immature Granulocyte % (Auto) 0.4 % Immature Granulocyte # (Auto) 0.04 K/uL (0.00-0.02) Prothrombin Time 11.9 SECONDS (9.0-12.0) Prothromb Time International Ratio 1.1 (0.9-1.1) Activated Partial Thromboplast Time 29.2 SECONDS (21.0-31.0) Partial Thromboplastin Ratio 1.1 Anion Gap 7.0 mmol/L (3-11) Est Creatinine Clear Calc Drug Dose 40.2 ml/min Estimated GFR () 43.0 Estimated GFR (Non- 37.1 BUN/Creatinine Ratio 18.8 (10-20) Calcium Level 8.4 mg/dl (8.5-10.1) Total Bilirubin 0.9 mg/dl (0.2-1) Direct Bilirubin 0.3 mg/dl (0-0.2) Aspartate Amino Transf (AST/SGOT) 27 U/L (15-37) Alanine Aminotransferase (ALT/SGPT) 77 U/L (12-78) Alkaline Phosphatase 183 U/L (45-117) Total Creatine Kinase 45 U/L (39-308) Creatine Kinase MB 2.9 ng/ml (0.5-3.6) Creatine Kinase MB Ratio 6.4 (0-3.0) Troponin I 0.052 ng/ml (0-0.045) Total Protein 6.6 gm/dl (6.4-8.2) Albumin 3.0 gm/dl (3.4-5.0) Laboratory results as stated above per my review. ECG Per My Interpretation Indication: SOB/dyspnea Rate (beats per minute): 107 Rhythm: sinus tachycardia Findings: LBBB, other (No NYLA No Ectopy) ED Course 2338: Previous medical records were reviewed. The patient was evaluated in room B12B. A complete history and physical examination was performed. 0040: On reevaluation, the patient is resting in bed. I discussed the results and findings with the patient. He verbalized agreement of the treatment plan. the patient was discharged home. Medical Decision Differential diagnosis: Etiologies such as infections, reactive airway disease, pneumonia, pneumothorax , COPD, CHF, cardiac ischemia, pulmonary embolism, musculoskeletal, gastrointestinal, as well as others were entertained This is a 68-year-old male who presents to the ED with a chief complaint of weakness. The patient was discharged from the hospital 2 days ago after being diagnosed with pneumonia. He is currently on a 7 day course of Levaquin. He has additional 5 days of Levaquin to go. The patient reports that since his discharge he has been weak and has difficulty walking. He feels tired. He does not report any significant changes in his breathing. His physical exam reveals diminished breath sounds bilaterally. His vital signs revealed a pulse ox of 94% on room air. He is afebrile. Blood pressures normal. His physical exam did reveal some bilateral pedal edema. His white blood cell count was 11.4. BUN is 35 and creatinine is 1.8. This is near his baseline. Glucose was 216. Troponin is 0.052. Reviewing previous troponins, this is within the patient's usual level on previous evaluations. Based on the patient's overall exam as well as reviewing previous laboratory studies, I feel the patient is stable for discharge. He does have home health nursing coming in tomorrow and is also going to have home physical therapy come in for evaluation as well. The patient does is not felt to require additional inpatient treatment. He is felt to be stable for discharge and outpatient follow-up. Medication Reconcilliation Current Medication List: was personally reviewed by me Blood Pressure Screening Patient's blood pressure: Normal blood pressure Impression Primary Impression: Weakness Additional Impression: Pneumonia Scribe Attestation The scribe's documentation has been prepared under my direction and personally reviewed by me in its entirety. I confirm that the note above accurately reflects all work, treatment, procedures, and medical decision making performed by me. Departure Information Dispostion Home / Self-Care Referrals Shae Moore M.D. (PCP) Patient Instructions My [facility] Additional Instructions Follow-up with your doctor for further care and evaluation in 1-2 days. Return to the emergency department for worsening or new symptoms or any concerns. You have been examined and treated today on an emergency basis only. This is not a substitute for, or an effort to provide, complete comprehensive medical care. It is impossible to recognize and treat all injuries or illnesses in a single emergency department visit. It is therefore important that you follow up closely with your doctor. Call as soon as possible for an appointment. Continue current home medications. Continue home health nursing as well as evaluation for physical therapy. Problem Qualifiers
[2018-03-11] MEDS ORDERED: ASCO100061 PO (00:50)
[2018-03-11] MEDS ORDERED: B-COTAB18 PO (00:52)
[2018-03-11] MEDS ORDERED: NITR0.4S UT (00:56)
[2018-03-11 01:00] VITALS: BP 108/67; PULSE 97; O2SAT 98
--- NOTE | 2018-03-11 06:49 | DIAGNOSTIC IMAGING REPORT ---
CHEST ONE VIEW PORTABLE CLINICAL HISTORY: Fever, sepsis, shortness of breath COMPARISON STUDY: 03/05/2018 FINDINGS: The heart remains enlarged. There are postsurgical changes of a midline sternotomy. There are bilateral pleural effusions left greater than right. There is pulmonary vascular congestion/fluid overload. There are bibasilar opacities likely representing compressive atelectasis. There is persistent right hilar prominence likely secondary to a prominent pulmonary central artery. IMPRESSION: Cardiomegaly, bilateral pleural effusions left greater than right, and radiographic evidence of congestive failure/fluid overload Electronically signed by: Valentin Werner M.D. 03/11/2018 6:47 AM Dictated Date/Time: 03/11/2018 6:46 AM
[2018-03-11] MEDS ORDERED: IMDSR30 PO (07:36)
[2018-03-11] MEDS ORDERED: FERR325T5 PO (07:36)
[2018-03-11] MEDS ORDERED: TORS20TA2 PO (07:37)
[2018-03-11] MEDS ORDERED: INSDGIPEN SC (08:45)
[2018-03-11] MEDS ORDERED: GLC/500 PO (08:45)
[2018-03-11] MEDS ORDERED: PRT/20 PO (09:07)
[2018-03-11] MEDS ORDERED: ZFR4 PO (14:41)
[2018-03-11] MEDS ORDERED: MAGN250T3 PO (14:41)
[2018-03-11] MEDS ORDERED: SPIR25TA PO (16:38)
[2018-03-11] MEDS ORDERED: METO50TA16 PO (21:44)
[2018-03-11] MEDS ORDERED: COEN1CAP17 PO (22:28)
== END 2018-03-11 01:05 | disposition home or self-care (01) ==
LOC: EDBD 23:24 → C.EDB 23:26
DX: R53.1 Weakness (principal); J18.9 Pneumonia, unspecified organism; R60.0 Localized edema; E11.9 Type 2 diabetes mellitus without complications; Z79.4 Long term (current) use of insulin; I25.2 Old myocardial infarction; I50.9 Heart failure, unspecified; I48.91 Unspecified atrial fibrillation; Z95.1 Presence of aortocoronary bypass graft; Z88.1 Allergy status to other antibiotic agents; Z91.041 Radiographic dye allergy status; Z88.8 Allergy status to other drugs, medicaments and biological substances

== ENCOUNTER → 2018-03-14 | Outpatient (CLI) | payer OTHER, BC ==
[~2018-03-14] MED LIST changes: +ASCO100061 PO; +ATV/1 PO; +B-COTAB18 PO; +COEN1CAP17 PO; +FERR325T5 PO; +FRS/40 PO; +GLC/500 PO; +GUAI1TAB55 PO; +IMDSR30 PO; +INSDGIPEN SC; +LEVO1TAB35 PO; +LOSA1TAB PO; +MAGN250T3 PO; +METH10TA6 PO; +METO50TA16 PO; +Mucinex PO; +NITR0.4S UT; +PRT/20 PO; +SPIR25TA PO; +TORS20TA2 PO; +TRAZ50TA35 PO; +ZFR4 PO
[2018-03-14 17:34] LABS: BLOOD UREA NITROGEN 40 mg/dl (7-18); CALCIUM 8.8 mg/dl (8.5-10.1); CARBON DIOXIDE 32 mmol/L (21-32); CREATININE 2.01 mg/dl (0.60-1.40); GLUCOSE 226 mg/dl (70-99); POTASSIUM 4.7 mmol/L (3.5-5.1); SODIUM 130 mmol/L (136-145)
== END | disposition home or self-care (01) ==
LOC: C.LABPVFM 14:20
PROVIDERS: ATTEND Family Medicine
DX: E11.319 Type 2 diabetes mellitus with unspecified diabetic retinopathy without macular edema (principal)

== ENCOUNTER 2018-03-15 06:39 | Emergency (ER) | payer OTHER, BC ==
[~2018-03-15] VITALS: Ht 177.8 cm; Wt 80.0 kg
[~2018-03-15 06:39] MED LIST changes: -ATV/1 PO; -FRS/40 PO; -GUAI1TAB55 PO; -LEVO1TAB35 PO; -LOSA1TAB PO; -METH10TA6 PO; -TRAZ50TA35 PO
[2018-03-15 06:50] VITALS: TEMP 36.8; O2SAT 96; Ht 177.8 cm; Wt 80.0 kg
--- NOTE | 2018-03-15 07:01 | EMERGENCY ROOM VISIT NOTE ---
History Report prepared by Farrah: Alice Miller Under the Supervision of: Dr. Robin Monson D.O. First contact with patient: 06:40 Stated Complaint: SYNCOPE History of Present Illness The patient is a 68 year old male who presents to the Emergency Room with complaints of a resolved syncopal episode that occurred prior to arrival. His reports that the patient was sitting on a recliner chair, getting dressed, when she noticed the patient was shaking a lot. She states that he was staring forward and noticed that he was breathing heavy, noting that the episode only lasted about 10 seconds. The patient denies remembering the event, but notes that after his episode he began feeling weak and experiencing tight breathing. He reports that he did not bite his tongue or have any incontinence during this episode. The patient states that he has been coughing for several days, noting that he has been having left lower quadrant abdominal pain since last night. He notes that he is on his last day of Levaquin. - Onset: prior to arrival Position: abdomen (LLQ) Quality: other (syncopal episode) Timing: resolved Associated Symptoms: + LOC, + cough, + abdominal pain (left lower quadrant) Review of Systems See HPI for pertinent positives & negatives. A total of 10 systems reviewed and were otherwise negative. Past Medical & Surgical Medical Problems: (1) Abnormal EKG (2) Acute exacerbation of CHF (congestive heart failure) (3) Acute GI bleeding (4) acute Gi bleeding (5) Acute respiratory failure with hypoxemia (6) Aspiration pneumonitis (7) Atrial Fibrillation (8) CHF (congestive heart failure) (9) CHF (congestive heart failure) (10) Diab [place] Compl, Type Ii Or Unspec Type, Not Uncntrld (11) Hyperglycemia (12) Hyperlipidemia Nec/Nos (13) Hypertension Nos (14) Hypotensive shock (15) New left bundle branch block (16) NSTEMI (non-ST elevated myocardial infarction) (17) Old Myocardial Infarct (18) Pneumonia (19) Shortness of breath (20) SOB (shortness of breath) (21) Thrush (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, right Surgical Problems: (1) H/O cardiac catheterization (2) H/O heart artery stent (3) H/O heart bypass surgery (4) Status post double vessel coronary artery bypass Family History Cancer Diabetes mellitus FH ischemic heart disease Social History Smoking Status: Never Smoker Alcohol Use: none Drug Use: none Marital Status: in relationship Housing Status: lives alone Occupation Status: employed Current/Historical Medications Scheduled Ascorbic Acid (Ascorbic Acid), 1,000 MG PO BID B-Complex Vitamins (Vitamin B Complex), 1 TAB PO QAM Coenzyme Q10 (Ubidecarenone) (Co Q 10), 200 MG PO DAILY Ferrous Sulfate (Ferrous Sulfate), 325 MG PO UD Guaifenesin Ext Rel (Mucinex Ext Rel), 1 TAB PO BID Insulin Glargine (Lantus Solostar), 12 UNITS SC QPM Isosorbide Mononitrate (Isosorbide Mononitrate ER), 30 MG PO QAM Levofloxacin (Levaquin), 750 MG PO DAILY Magnesium (Magnesium 250 mg), 250 MG PO DAILY Metformin Hcl (Glucophage), 500 MG PO BID Methimazole (Methimazole), 10 MG PO DAILY Metoprolol Tartrate (Lopressor) (Lopressor), 25 MG PO BID Pantoprazole (Protonix), 40 MG PO BID Spironolactone (Aldactone), 25 MG PO QAM Torsemide (Demadex), 20 MG PO QAM Scheduled PRN Nitroglycerin (Nitrostat), 0.4 MG UT UD PRN for Chest Pain Ondansetron (Ondansetron HCl), 4 MG PO Q4H PRN for Nausea or Vomiting Allergies Coded Allergies: Amoxicillin (Verified Allergy, Severe, hives swelling redness lip swelling , 03/08/18) Clavulanic Acid (Verified Allergy, Severe, hypotensive shock, 03/08/18) Iodinated Diagnostic Agents (Verified Allergy, Intermediate, HIVES, ) Prednisone (Verified Allergy, Intermediate, SHORTNESS OF BREATH, 03/08/18) as per patient Physical Exam Vital Signs Date Time Temp Pulse Resp B/P (MAP) Pulse Ox O2 Delivery O2 Flow Rate FiO2 03/15/18 09:00 91 18 112/75 100 Room Air 03/15/18 07:47 89 102/77 96 Room Air 03/15/18 06:51 95 03/15/18 06:50 36.8 96 16 114/77 96 Room Air 03/15/18 06:50 96 Room Air 03/15/18 06:50 96 114/77 95 107/79 75 111/74 Physical Exam CONSTITUTIONAL/VITAL SIGNS: Reviewed / noted above. GENERAL: Non-toxic in appearance. INTEGUMENTARY: Warm, dry, and [place]. HEAD: Normocephalic. EYES: without scleral icterus or trauma. ENT/OROPHARYNX: clear and moist. LYMPHADENOPATHY/NECK: Is supple without lymphadenopathy or meningismus. RESPIRATORY: Diminished lung sounds at left base. CARDIOVASCULAR: Regular rate and rhythm. GI/ABDOMEN: Minimal tenderness to left lower quadrant. No organomegaly or pulsatile mass. No rebound or guarding. Normal bowel sounds. EXTREMITIES: Warm and well perfused. BACK: No CVA tenderness. NEUROLOGICAL: Intact without focal deficits. PSYCHIATRIC: normal affect. MUSCULOSKELETAL: Normally developed with good muscle tone. Medical Decision & Procedures ER Provider Diagnostic Interpretation: Radiology results as stated below per my review and radiologist interpretation: CT OF THE ABDOMEN AND PELVIS WITHOUT CONTRAST, STONE PROTOCOL CLINICAL HISTORY: Left lower quadrant pain and syncope. COMPARISON STUDY: Right upper quadrant ultrasound March 05, 2018 and MRCP March 06, 2018. TECHNIQUE: Helical axial images of the abdomen and pelvis were obtained without IV or oral contrast according to renal stone protocol. A dose lowering technique was utilized adhering to the principles of ALARA. FINDINGS: Imaged portions of the lower chest partially visualize moderate to large left and moderate right pleural effusions which have increased in size since chest CT of March 05, 2018. The heart is moderately enlarged. Associated airspace opacities favor atelectasis. There is no pneumatosis, free air or portal venous gas. There are gallstones within the gallbladder. The gallbladder is mildly distended. There is no pericholecystic infiltration. Evaluation of the abdomen and pelvis is suboptimal on this unenhanced exam. The liver, spleen, adrenal glands and pancreas are unremarkable. No renal, ureteral calculi are present. There is no hydronephrosis. There are small calculi within the left posterior aspect the bladder. There is no evidence for a bowel obstruction. The appendix is normal. There is oral contrast within portions of the colon. There is trace fluid within the pelvis. Generalized anasarca is noted. No lymphadenopathy is noted. There is extensive vascular calcification. No suspicious osseous lesion is noted. IMPRESSION: 1. Moderate to large left and moderate right pleural effusions, partially imaged on this exam. 2. No renal or ureteral calculi. No hydronephrosis. Small bladder calculi. 3. Cholelithiasis and mild gallbladder distention. No pericholecystic infiltration. 4. Trace ascites. Anasarca. 5. No bowel obstruction. Normal appendix. Electronically signed by: Vishnu Jerez M.D. 03/15/2018 8:01 AM Dictated Date/Time: 03/15/2018 7:49 AM CHEST ONE VIEW PORTABLE CLINICAL HISTORY: EVALUATE ALTERED MENTAL STATUS/WEAKNESS COMPARISON STUDY: Chest CT March 05, 2018 and chest radiograph March 10, 2018 FINDINGS: There are median sternotomy wires. No pneumothorax is present. There is evidence for pulmonary edema which has slightly improved since exam of March 10, 2018. Moderate to large left and small right pleural effusions persist. There are persistent bibasilar opacities. Cardiomegaly is noted. IMPRESSION: 1. Persistent, but slightly improved, pulmonary edema when compared to exam of March 10, 2018. 2. Moderate to large left and small right pleural effusions which are unchanged. Associated bibasilar opacities may reflect atelectasis or consolidation. Electronically signed by: Vishnu Jerez M.D. 03/15/2018 7:18 AM Dictated Date/Time: 03/15/2018 7:16 AM Laboratory Results 03/15/18 06:54 Red Blood Count 5.22, Mean Corpuscular Volume 80.7, Mean Corpuscular Hemoglobin 27.8, Mean Corpuscular Hemoglobin Concent 34.4, Mean Platelet Volume 11.8, Neutrophils (%) (Auto) 81.2, Lymphocytes (%) (Auto) 9.1, Monocytes (%) (Auto) 8.9, Eosinophils (%) (Auto) 0.5, Basophils (%) (Auto) 0.1, Neutrophils # (Auto) 9.37, Lymphocytes # (Auto) 1.05, Monocytes # (Auto) 1.03, Eosinophils # (Auto) 0.06, Basophils # (Auto) 0.01 03/15/18 06:54 Test 03/15/18 06:54 White Blood Count 11.54 K/uL (4.8-10.8) Red Blood Count 5.22 M/uL (4.7-6.1) Hemoglobin 14.5 g/dL (14.0-18.0) Hematocrit 42.1 % (42-52) Mean Corpuscular Volume 80.7 fL (80-100) Mean Corpuscular Hemoglobin 27.8 pg (25-34) Mean Corpuscular Hemoglobin Concent 34.4 g/dl (32-36) Platelet Count 147 K/uL (130-400) Mean Platelet Volume 11.8 fL (7.4-10.4) Neutrophils (%) (Auto) 81.2 % Lymphocytes (%) (Auto) 9.1 % Monocytes (%) (Auto) 8.9 % Eosinophils (%) (Auto) 0.5 % Basophils (%) (Auto) 0.1 % Neutrophils # (Auto) 9.37 K/uL (1.4-6.5) Lymphocytes # (Auto) 1.05 K/uL (1.2-3.4) Monocytes # (Auto) 1.03 K/uL (0.11-0.59) Eosinophils # (Auto) 0.06 K/uL (0-0.5) Basophils # (Auto) 0.01 K/uL (0-0.2) RDW Standard Deviation 46.1 fL (36.4-46.3) RDW Coefficient of Variation 16.1 % (11.5-14.5) Immature Granulocyte % (Auto) 0.2 % Immature Granulocyte # (Auto) 0.02 K/uL (0.00-0.02) Prothrombin Time 13.2 SECONDS (9.0-12.0) Prothromb Time International Ratio 1.3 (0.9-1.1) Activated Partial Thromboplast Time 28.9 SECONDS (21.0-31.0) Partial Thromboplastin Ratio 1.1 Anion Gap 7.0 mmol/L (3-11) Est Creatinine Clear Calc Drug Dose 34.7 ml/min Estimated GFR () 36.0 Estimated GFR (Non- 31.1 BUN/Creatinine Ratio 20.1 (10-20) Calcium Level 8.7 mg/dl (8.5-10.1) Magnesium Level 2.2 mg/dl (1.8-2.4) Total Creatine Kinase 53 U/L (39-308) Creatine Kinase MB 2.5 ng/ml (0.5-3.6) Creatine Kinase MB Ratio 4.7 (0-3.0) Troponin I 0.046 ng/ml (0-0.045) Lipase 171 U/L (73-393) Laboratory results as stated above per my review. ECG Per My Interpretation Indication: syncope Rate (beats per minute): 95 Rhythm: normal sinus Findings: no ectopy, other (No ST elevations) Change: no significant change (03/05/18) ED Course 0642: Previous medical records were reviewed. The patient was evaluated in room B7. A complete history and physical examination was performed. Medical Decision Differential includes acute cardiac dysrhythmia, microinfarction, CVA, TIA, dehydration, anemia, electrolyte disturbance, seizure, trauma, intracranial bleeding, acute vascular catastrophe, thoracic aortic dissection, PE, abdominal aortic aneurysm rupture, ectopic rupture. This is a 68-year-old male who presents to the ED with a chief complaint of syncope. The patient's reports that the patient was getting dressed this morning and was sitting in a recliner. While she was getting him dressed and putting on some socks, he shook for about 10 seconds or less and was staring straight ahead. The patient then seem back to normal and would respond appropriately. He did not bite his tongue or have incontinence. He has no seizure history. The patient states that he does not recall the events but recalls being awake when the was on the phone with 911. He states that he only felt weak but otherwise has no complaints. He did not feel any chest pains , shortness of breath, palpitations or other symptoms at the time that he awoke. EMS did not provide any specific treatment. The patient does have a history of recent pneumonia and is on day #7 of . The patient does report a continued cough and states that he developed some left lower quadrant abdominal discomfort last night. He did not tell his about this until now , in the ED. She states she was not aware of the pain. The patient does have a history of IDDM and is on diuretics for CHF. He also has a history of GI bleed, A. fib and CAD and CABG. His current vital signs are normal. Orthostatic vital signs are normal. The patient is in no distress sitting comfortably on the litter. On exam, the patient has slightly diminished breath sounds in the left base compared to the right, minimal left lower quadrant abdominal tenderness and chronic lower extremity edema. 12-lead EKG shows a normal sinus rhythm. CBC is unremarkable, INR is 1.3, BUN is 43 and creatinine is 2.13. This is near slightly above baseline. Troponin is 0.046 which is chronically elevated in this patient. Chest x-ray was not showing any acute process. There is bilateral pleural effusions left greater than right and some atelectasis versus consolidation in the bases. Congestive changes or slightly improved from prior. There is no change from her previous x-ray done [address] scan of the abdomen pelvis did not show acute intra-abdominal pathology. There was noted to be moderate to large left and moderate right pleural effusion. The patient was told the results of the test. He is felt to be stable for discharge and outpatient follow-up. Medication Reconcilliation Current Medication List: was personally reviewed by me Blood Pressure Screening Patient's blood pressure: Normal blood pressure Blood pressure disposition: Did not require urgent referral Impression Primary Impression: Syncope Scribe Attestation The scribe's documentation has been prepared under my direction and personally reviewed by me in its entirety. I confirm that the note above accurately reflects all work, treatment, procedures, and medical decision making performed by me. Departure Information Dispostion Home / Self-Care Referrals Shae Moore M.D. (PCP) Forms HOME CARE DOCUMENTATION FORM, IMPORTANT VISIT INFORMATION Patient Instructions ED Near Syncope Unkn, Fainting (Syncope) - [facility], [facility] Additional Instructions Follow-up with your doctor for further care and evaluation in 2-3 days. Return to the emergency department for worsening or new symptoms or any concerns. You have been examined and treated today on an emergency basis only. This is not a substitute for, or an effort to provide, complete comprehensive medical care. It is impossible to recognize and treat all injuries or illnesses in a single emergency department visit. It is therefore important that you follow up closely with your doctor. Call as soon as possible for an appointment.
[2018-03-15 07:03] LABS: BASO % 0.1 %; BASO ABS # 0.01 K/uL (0-0.2); EOS % 0.5 %; EOS ABS # 0.06 K/uL (0-0.5); HEMATOCRIT 42.1 % (42-52); HEMOGLOBIN 14.5 g/dL (14.0-18.0); IG# 0.02 K/uL (0.00-0.02); LYMPH % 9.1 %; LYMPH ABS # 1.05 K/uL (1.2-3.4); MEAN CELL VOLUME 80.7 fL (80-100); MEAN CORPUSCULAR HEMOGLOBIN 27.8 pg (25-34); MEAN CORPUSCULAR HGB CONC 34.4 g/dl (32-36); MEAN PLATELET VOLUME 11.8 fL (7.4-10.4); MONO % 8.9 %; MONO ABS # 1.03 K/uL (0.11-0.59); NEUT % 81.2 %; NEUT ABS # 9.37 K/uL (1.4-6.5); PLATELET COUNT 147 K/uL (130-400); RED CELL DISTRIBUTION WIDTH CV 16.1 % (11.5-14.5); RED CELL DISTRIBUTION WIDTH SD 46.1 fL (36.4-46.3); WHITE BLOOD COUNT 11.54 K/uL (4.8-10.8)
[2018-03-15 07:15] LABS: INR 1.3 (0.9-1.1); PTT PATIENT 28.9 SECONDS (21.0-31.0)
[2018-03-15 07:18] LABS: CALCIUM 8.7 mg/dl (8.5-10.1); CREATININE 2.13 mg/dl (0.60-1.40)
--- NOTE | 2018-03-15 07:19 | DIAGNOSTIC IMAGING REPORT ---
CHEST ONE VIEW PORTABLE CLINICAL HISTORY: EVALUATE ALTERED MENTAL STATUS/WEAKNESS COMPARISON STUDY: Chest CT March 05, 2018 and chest radiograph March 10, 2018 FINDINGS: There are median sternotomy wires. No pneumothorax is present. There is evidence for pulmonary edema which has slightly improved since exam of March 10, 2018. Moderate to large left and small right pleural effusions persist. There are persistent bibasilar opacities. Cardiomegaly is noted. IMPRESSION: 1. Persistent, but slightly improved, pulmonary edema when compared to exam of March 10, 2018. 2. Moderate to large left and small right pleural effusions which are unchanged. Associated bibasilar opacities may reflect atelectasis or consolidation. Electronically signed by: Vishnu Jerez M.D. 03/15/2018 7:18 AM Dictated Date/Time: 03/15/2018 7:16 AM
[2018-03-15] MEDS ORDERED: GUAI1TAB55 PO (07:21)
[2018-03-15] MEDS ORDERED: METH10TA6 PO (07:21)
[2018-03-15] MEDS ORDERED: LEVO1TAB35 PO (07:21)
[2018-03-15 07:29] LABS: CKMB 2.5 ng/ml (0.5-3.6)
--- NOTE | 2018-03-15 08:03 | DIAGNOSTIC IMAGING REPORT ---
CT OF THE ABDOMEN AND PELVIS WITHOUT CONTRAST, STONE PROTOCOL CLINICAL HISTORY: Left lower quadrant pain and syncope. COMPARISON STUDY: Right upper quadrant ultrasound March 05, 2018 and MRCP March 06, 2018. TECHNIQUE: Helical axial images of the abdomen and pelvis were obtained without IV or oral contrast according to renal stone protocol. A dose lowering technique was utilized adhering to the principles of ALARA. FINDINGS: Imaged portions of the lower chest partially visualize moderate to large left and moderate right pleural effusions which have increased in size since chest CT of March 05, 2018. The heart is moderately enlarged. Associated airspace opacities favor atelectasis. There is no pneumatosis, free air or portal venous gas. There are gallstones within the gallbladder. The gallbladder is mildly distended. There is no pericholecystic infiltration. Evaluation of the abdomen and pelvis is suboptimal on this unenhanced exam. The liver, spleen, adrenal glands and pancreas are unremarkable. No renal, ureteral calculi are present. There is no hydronephrosis. There are small calculi within the left posterior aspect the bladder. There is no evidence for a bowel obstruction. The appendix is normal. There is oral contrast within portions of the colon. There is trace fluid within the pelvis. Generalized anasarca is noted. No lymphadenopathy is noted. There is extensive vascular calcification. No suspicious osseous lesion is noted. IMPRESSION: 1. Moderate to large left and moderate right pleural effusions, partially imaged on this exam. 2. No renal or ureteral calculi. No hydronephrosis. Small bladder calculi. 3. Cholelithiasis and mild gallbladder distention. No pericholecystic infiltration. 4. Trace ascites. Anasarca. 5. No bowel obstruction. Normal appendix. Electronically signed by: Vishnu Jerez M.D. 03/15/2018 8:01 AM Dictated Date/Time: 03/15/2018 7:49 AM
[2018-03-15 09:50] VITALS: BP 105/74; PULSE 91; O2SAT 96
== END 2018-03-15 09:51 | disposition home or self-care (01) ==
LOC: EDBD 06:39 → C.EDB 06:40
DX: R55 Syncope and collapse (principal); R10.32 Left lower quadrant pain; I50.9 Heart failure, unspecified; Z87.01 Personal history of pneumonia (recurrent); I48.91 Unspecified atrial fibrillation; E11.9 Type 2 diabetes mellitus without complications; E78.5 Hyperlipidemia, unspecified; I11.0 Hypertensive heart disease with heart failure; I44.7 Left bundle-branch block, unspecified; I25.2 Old myocardial infarction; Z95.5 Presence of coronary angioplasty implant and graft; Z95.1 Presence of aortocoronary bypass graft; Z80.9 Family history of malignant neoplasm, unspecified; Z83.3 Family history of diabetes mellitus; Z79.899 Other long term (current) drug therapy; Z79.4 Long term (current) use of insulin; Z79.84 Long term (current) use of oral hypoglycemic drugs; Z88.0 Allergy status to penicillin; Z91.041 Radiographic dye allergy status; Z88.8 Allergy status to other drugs, medicaments and biological substances

== ENCOUNTER 2018-03-17 22:03 | Observation (INO) | payer OTHER, BC ==
[~2018-03-17] VITALS: Ht 177.8 cm; Wt 78.2 kg
[~2018-03-17 22:03] MED LIST changes: -CZR25 PO; +GUAI1TAB55 PO; +LEVO1TAB35 PO; -LVQ750 PO; +METH10TA6 PO; -Mucinex PO
[2018-03-17] MEDS ORDERED: FRS/40 PO (22:56)
[2018-03-17] MEDS ORDERED: TRAZ50TA35 PO (22:58)
[2018-03-17] MEDS ORDERED: ATV/1 PO (22:59)
[2018-03-17] MEDS ORDERED: LOSA1TAB PO (23:02)
--- NOTE | 2018-03-17 23:36 | EMERGENCY ROOM VISIT NOTE ---
History Report prepared by Emberibladarius: Katalina Ramos Under the Supervision of: Dr. Mona Garcia M.D. First contact with patient: 23:03 Chief Complaint: WEAKNESS Stated Complaint: WEAKNESS/LOWER LEG EDEMA Nursing Triage Summary: Weakness for the last 2-3 weeks. Pt was here Sunday for syncope. Pt states he wants to find out why he's weak. BLE edema. Pt has PMH of CHF. . History of Present Illness The patient is a 68 year old male who presents to the Emergency Room with complaints of persistent generalized weakness for several days. The patient has a history of CHF, DM, IL, and hypothyroidism. He states that he is going "downhill." Per , the patient passed out three mornings ago for about 10 seconds. He was seen by his PCP March 11, 2018, though states that he does not want to talk about this progressive decline with his PCP anymore because every time he goes he is "loaded" with more medications. He doesn't feel that it is helping. The patient reports that he could not safely walk upstairs to go to bed this evening and was concerned. He states that he can usually walks independently, but in the last 2 weeks had to start using a cane. He reports increased leg weakness. Per , the patient has increased loss of appetite. He states that he is dehydrated and reports mild loss of sensation in his tongue. Per , the patient has recently lost weight. Source of History: patient Onset: several days Position: other (general) Quality: other (weakness) Timing: other (persistent) Associated Symptoms: + weakness (leg) Note: Increased loss of appetite, dehydrated, mild loss of sensation in his tongue, and weight loss. Review of Systems See HPI for pertinent positives & negatives. A total of 10 systems reviewed and were otherwise negative. Past Medical & Surgical Medical Problems: (1) Abnormal EKG (2) Acute exacerbation of CHF (congestive heart failure) (3) Acute GI bleeding (4) acute Gi bleeding (5) Acute respiratory failure with hypoxemia (6) Ambulatory dysfunction (7) Aspiration pneumonitis (8) Atrial Fibrillation (9) CHF (congestive heart failure) (10) CHF (congestive heart failure) (11) Diab [place] Compl, Type Ii Or Unspec Type, Not Uncntrld (12) Encounter for rehabilitation evaluation (13) Hyperglycemia (14) Hyperlipidemia Nec/Nos (15) Hypertension Nos (16) Hypotensive shock (17) New left bundle branch block (18) NSTEMI (non-ST elevated myocardial infarction) (19) Old Myocardial Infarct (20) Pneumonia (21) Shortness of breath (22) SOB (shortness of breath) (23) Thrush (24) Toe osteomyelitis, right Surgical Problems: (1) H/O cardiac catheterization (2) H/O heart artery stent (3) H/O heart bypass surgery (4) Status post double vessel coronary artery bypass Family History Cancer Diabetes mellitus FH ischemic heart disease Social History Smoking Status: Former Smoker Alcohol Use: none Drug Use: none Marital Status: in relationship Housing Status: lives alone Occupation Status: employed Current/Historical Medications Scheduled Ascorbic Acid (Ascorbic Acid), 1,000 MG PO BID B-Complex Vitamins (Vitamin B Complex), 1 TAB PO QAM Coenzyme Q10 (Ubidecarenone) (Co Q 10), 200 MG PO DAILY Ferrous Sulfate (Ferrous Sulfate), 325 MG PO TID Furosemide (Lasix), 40 MG PO BID Insulin Glargine (Lantus Solostar), 12 UNITS SC QPM Isosorbide Mononitrate (Isosorbide Mononitrate ER), 30 MG PO QAM Lorazepam (Ativan), 1 MG PO HS Losartan Potassium (Cozaar), 25 MG PO DAILY Magnesium (Magnesium 250 mg), 250 MG PO DAILY Metformin Hcl (Glucophage), 500 MG PO BID Methimazole (Methimazole), 10 MG PO DAILY Metoprolol Tartrate (Lopressor) (Lopressor), 25 MG PO BID Pantoprazole (Protonix), 40 MG PO BID Spironolactone (Aldactone), 25 MG PO QAM Torsemide (Demadex), 20 MG PO QAM Trazodone Hcl (Trazodone), 25-50 MG PO HS Scheduled PRN Nitroglycerin (Nitrostat), 0.4 MG UT UD PRN for Chest Pain Ondansetron (Ondansetron HCl), 4 MG PO Q4H PRN for Nausea or Vomiting Allergies Coded Allergies: Amoxicillin (Verified Allergy, Severe, hives swelling redness lip swelling , 03/17/18) Clavulanic Acid (Verified Allergy, Severe, hypotensive shock, 03/17/18) Iodinated Diagnostic Agents (Verified Allergy, Intermediate, HIVES, 4/29/ 18) Prednisone (Verified Allergy, Intermediate, SHORTNESS OF BREATH, 03/17/18) as per patient Physical Exam Vital Signs Date Time Temp Pulse Resp B/P (MAP) Pulse Ox O2 Delivery O2 Flow Rate FiO2 03/18/18 04:28 95 23 114/72 94 03/18/18 03:48 96 23 108/78 96 Room Air 03/18/18 02:10 91 20 106/74 99 Room Air 03/18/18 02:02 91 03/18/18 00:36 18 108/74 100 Room Air 03/17/18 22:12 103 03/17/18 22:09 36.5 100 18 107/75 97 Room Air Physical Exam Vital signs reviewed. General: Chronically ill-appearing, in no significant distress. HEENT: No scleral icterus, PERRLA, neck supple. Atraumatic. Dry mucus membranes. Mild edema to tongue with white plaques. Cardiovascular: Regular rate and rhythm, no extra sounds. Pulmonary: Clear to auscultation bilaterally, normal work of breathing. Abdomen: Soft, nontender, nondistended, positive bowel sounds. Musculoskeletal: Atraumatic, Bilateral LE pitting edema. Neurologic: Patient awake alert and oriented x 3 Skin: Warm, dry, no rash Medical Decision & Procedures ER Provider Diagnostic Interpretation: Radiology results as stated below per my review and interpretation: CHEST XR: Reveals a left greater than right pleural effusion. Postsurgical sternotomy changes. Cardiomegaly. Similar to previous x-ray earlier this month US VENOUS BILATERAL LOWER EXTREMITIES: No evidence of deep vein thrombosis. Limited evaluation of the calf. Subcutaneous edema. Pulsatile flow, can be seen with fluid overload or right heart failure. Radiologist: Rebecca Goyal MD Study ready at 01:10 and initial results transmitted at 01:47 Laboratory Results 03/18/18 00:24 Red Blood Count 5.17, Mean Corpuscular Volume 80.9, Mean Corpuscular Hemoglobin 27.5, Mean Corpuscular Hemoglobin Concent 34.0, Mean Platelet Volume 11.3, Neutrophils (%) (Auto) 80.8, Lymphocytes (%) (Auto) 9.1, Monocytes (%) (Auto) 8.2, Eosinophils (%) (Auto) 1.4, Basophils (%) (Auto) 0.2, Neutrophils # (Auto) 9.28, Lymphocytes # (Auto) 1.04, Monocytes # (Auto) 0.94, Eosinophils # (Auto) 0.16, Basophils # (Auto) 0.02 03/18/18 00:24 Test 03/18/18 00:24 03/18/18 01:40 White Blood Count 11.47 K/uL (4.8-10.8) Red Blood Count 5.17 M/uL (4.7-6.1) Hemoglobin 14.2 g/dL (14.0-18.0) Hematocrit 41.8 % (42-52) Mean Corpuscular Volume 80.9 fL (80-100) Mean Corpuscular Hemoglobin 27.5 pg (25-34) Mean Corpuscular Hemoglobin Concent 34.0 g/dl (32-36) Platelet Count 125 K/uL (130-400) Mean Platelet Volume 11.3 fL (7.4-10.4) Neutrophils (%) (Auto) 80.8 % Lymphocytes (%) (Auto) 9.1 % Monocytes (%) (Auto) 8.2 % Eosinophils (%) (Auto) 1.4 % Basophils (%) (Auto) 0.2 % Neutrophils # (Auto) 9.28 K/uL (1.4-6.5) Lymphocytes # (Auto) 1.04 K/uL (1.2-3.4) Monocytes # (Auto) 0.94 K/uL (0.11-0.59) Eosinophils # (Auto) 0.16 K/uL (0-0.5) Basophils # (Auto) 0.02 K/uL (0-0.2) RDW Standard Deviation 47.6 fL (36.4-46.3) RDW Coefficient of Variation 16.5 % (11.5-14.5) Immature Granulocyte % (Auto) 0.3 % Immature Granulocyte # (Auto) 0.03 K/uL (0.00-0.02) Anion Gap 4.0 mmol/L (3-11) Est Creatinine Clear Calc Drug Dose 42.1 ml/min Estimated GFR () 45.4 Estimated GFR (Non- 39.1 BUN/Creatinine Ratio 27.3 (10-20) Calcium Level 8.5 mg/dl (8.5-10.1) Magnesium Level 2.1 mg/dl (1.8-2.4) Total Bilirubin 1.1 mg/dl (0.2-1) Direct Bilirubin 0.5 mg/dl (0-0.2) Aspartate Amino Transf (AST/SGOT) 31 U/L (15-37) Alanine Aminotransferase (ALT/SGPT) 57 U/L (12-78) Alkaline Phosphatase 164 U/L (45-117) Total Creatine Kinase 53 U/L (39-308) Troponin I 0.027 ng/ml (0-0.045) Pro-B-Type Natriuretic Peptide 31529 pg/ml (0-900) Total Protein 6.7 gm/dl (6.4-8.2) Albumin 3.0 gm/dl (3.4-5.0) Thyroid Stimulating Hormone (TSH) 0.219 uIu/ml (0.300-4.500) Urine Color DK YELLOW Urine Appearance CLEAR (CLEAR) Urine pH 5.0 (4.5-7.5) Urine Specific [place] 1.022 (1.000-1.030) Urine Protein NEG (NEG) Urine Glucose (UA) NEG (NEG) Urine Ketones NEG (NEG) Urine Occult Blood NEG (NEG) Urine Nitrite NEG (NEG) Urine Bilirubin NEG (NEG) Urine Urobilinogen NEG (NEG) Urine Leukocyte Esterase NEG (NEG) Laboratory results per my review. ECG Per My Interpretation Indication: weakness Rate (beats per minute): 99 Rhythm: normal sinus Findings: Q waves (Anterior, Inferior, Lateral), no acute ischemic change, no ectopy, other (nonspecific intraventricular block, T wave abnormality laterally. ) ED Course 2312: Past medical records reviewed. The patient was evaluated in room B8. A complete history and physical examination was performed. 0145: I reassessed the patient at this time. He is resting. He has a flat affect. 0224: I spoke with Dr. Dos Santos [facility] [place]. We discussed the patient's case. The patient will be evaluated by the [facility] for further management. 0325: I spoke with Dr. Dos Santos [facility] hospitalist. He states the patient will likely be transferred to rehab later today. Medical Decision Differential diagnosis: Etiologies such as metabolic, infection, hypo/hyperglycemia, electrolyte abnormalities, cardiac sources, intracerebral event, toxicologic, neurologic, as well as others were entertained. This patient was evaluated and appeared to be in no distress. Physical examination reveals some chronic illness. Chest x-ray is concerning for a left moderately sized pleural effusion. Patient has a long-standing history of congestive heart failure and diabetes. Laboratory work is significant for an elevated BNP, chronic renal failure. Ultrasound of the bilateral lower extremities are negative for DVT. EKG reveals no evidence of acute ischemic change. UA is negative for infection. Patient was given 40 mg of IV Lasix. Patient states he is not ambulatory at home. The hospitalist was consulted, Dr. Dos Santos. Please see his notes for further management. Medication Reconcilliation Current Medication List: was personally reviewed by me Blood Pressure Screening Patient's blood pressure: Normal blood pressure Consults Time Called: 223 Consulting Physician: Dr. Dos Santos [facility] [facility] We discussed the patient's case. The patient will be evaluated by the [facility] for further management. 0325: I spoke with OLEG Pennington hospitalist. He states the patient will likely be transferred to rehab later today. Impression Primary Impression: CHF (congestive heart failure) Additional Impression: Generalized weakness Scribe Attestation The scribe's documentation has been prepared under my direction and personally reviewed by me in its entirety. I confirm that the note above accurately reflects all work, treatment, procedures, and medical decision making performed by me. Departure Information Dispostion Being Evaluated By Hospitalist Referrals Shae Moore M.D. (PCP) Patient Instructions My [facility] Health Problem Qualifiers
[2018-03-18 00:45] LABS: BASO % 0.2 %; BASO ABS # 0.02 K/uL (0-0.2); EOS % 1.4 %; EOS ABS # 0.16 K/uL (0-0.5); HEMATOCRIT 41.8 % (42-52); HEMOGLOBIN 14.2 g/dL (14.0-18.0); IG# 0.03 K/uL (0.00-0.02); LYMPH % 9.1 %; LYMPH ABS # 1.04 K/uL (1.2-3.4); MEAN CELL VOLUME 80.9 fL (80-100); MEAN CORPUSCULAR HEMOGLOBIN 27.5 pg (25-34); MEAN PLATELET VOLUME 11.3 fL (7.4-10.4); MONO % 8.2 %; MONO ABS # 0.94 K/uL (0.11-0.59); NEUT % 80.8 %; NEUT ABS # 9.28 K/uL (1.4-6.5); PLATELET COUNT 125 K/uL (130-400); RED CELL DISTRIBUTION WIDTH CV 16.5 % (11.5-14.5); RED CELL DISTRIBUTION WIDTH SD 47.6 fL (36.4-46.3); WHITE BLOOD COUNT 11.47 K/uL (4.8-10.8)
[2018-03-18 01:05] LABS: CALCIUM 8.5 mg/dl (8.5-10.1); CREATININE 1.76 mg/dl (0.60-1.40); POTASSIUM 3.8 mmol/L (3.5-5.1)
[2018-03-18 01:16] LABS: TOTAL PROTEIN 6.7 gm/dl (6.4-8.2)
[2018-03-18] MEDS ORDERED: FUROSEMIDE 40 MG/4 ML VIAL IV STA (03:12)
[2018-03-18] MEDS ORDERED: NITROGLYCERIN 0.4 MG SL PER TAB CHARGE UT PRN (03:30)
[2018-03-18] MEDS ORDERED: ACETAMINOPHEN 325 MG TAB PO PRN (03:30)
[2018-03-18] MEDS ORDERED: ALUMINUM/MAGNESIUM/SIMETH (MAALOX MAX) 30 ML UDC PO PRN (03:30)
[2018-03-18] MEDS ORDERED: POLYETHYLENE (MIRALAX) 17 GM PACK PO PRN (03:30)
[2018-03-18] MEDS ORDERED: ONDANSETRON 4 MG TAB PO PRN (03:30)
[2018-03-18] MEDS ORDERED: ONDANSETRON INJ 2 MG/ML 2 ML VIAL IV PRN (03:30)
[2018-03-18] MEDS ORDERED: MAGNESIUM HYDROXIDE SUSP 30 ML UDC PO PRN (03:30)
--- NOTE | 2018-03-18 04:04 | History and Physical ---
History & Physical Date & Time of Service: Mar 18, 2018 at 03:28 Chief Complaint: Weakness/Lower Leg Edema Primary Care Physician: Shae Moore M.D. History of Present Illness Source: patient, family, hospital records 68 y/o M with PMHx of Mixed Systolic/Diastolic CHF, Esophageal Stenosis, Esophageal Ulcers, T2DM, Paroxysmal Atrial Fibrillation, CKD Stage III, and Hyperthyroidism who presents to the ED. He presents with generalized weakness for a few months, possibly weight loss and a lack of appetite. No chest pain, palpitation, fevers/chills. 03/14 syncopal episode prior to ED visit. He does report some difficulty swallowing following esophageal dilation procedure on . He also reports dec'd appetite. Patient's would like him transferred into a rehab facility due to inability to ambulate without assistance. IN the ED, patient arrived afebrile, VSS. WBC ct was 11.47. H/H wnl. Cr 1.76 within baseline, BNP>22,000 , neg Trop Past Medical/Surgical History Medical Problems: (1) Abnormal EKG (2) Abscess of right foot including toes (3) Acute chest pain (4) Acute congestive heart failure (5) Acute exacerbation of CHF (congestive heart failure) (6) Acute GI bleeding (7) acute Gi bleeding (8) Acute respiratory failure with hypoxemia (9) DANIEL (acute kidney injury) (10) Aspiration pneumonitis (11) Atrial Fibrillation (12) Cellulitis (13) CHF (congestive heart failure) (14) CHF (congestive heart failure) (15) CHF exacerbation (16) CHF exacerbation (17) Dehydration (18) Dehydration (19) Diab [place] Compl, Type Ii Or Unspec Type, Not Uncntrld (20) Diabetic foot infection (21) Elevated LFTs (22) Elevated troponin (23) Hyperglycemia (24) Hyperlipidemia Nec/Nos (25) Hypertension Nos (26) Hypotensive shock (27) Insomnia (28) Intermittent epigastric abdominal pain (29) Leukocytosis (30) Lymphangitis, acute, lower leg (31) New left bundle branch block (32) NSTEMI (non-ST elevated myocardial infarction) (33) Old Myocardial Infarct (34) Pneumonia (35) Pulmonary edema (36) Sepsis (37) Shortness of breath (38) SOB (shortness of breath) (39) Syncope (40) Thrush (41) Toe osteomyelitis, right (42) Weakness Surgical Problems: (1) H/O cardiac catheterization (2) H/O heart artery stent (3) H/O heart bypass surgery (4) Status post double vessel coronary artery bypass Family History Cancer Diabetes mellitus FH ischemic heart disease Social History Smoking Status: Former Smoker Drug Use: none Marital Status: in relationship Housing status: lives alone Occupational Status: employed Immunizations History of Influenza Vaccine: No History of Tetanus Vaccine?: No History of Pneumococcal: No History of Hepatitis B Vaccine: No Allergies Coded Allergies: Amoxicillin (Verified Allergy, Severe, hives swelling redness lip swelling , 03/17/18) Clavulanic Acid (Verified Allergy, Severe, hypotensive shock, 03/17/18) Iodinated Diagnostic Agents (Verified Allergy, Intermediate, HIVES, ) Prednisone (Verified Allergy, Intermediate, SHORTNESS OF BREATH, 03/17/18) as per patient Home Medications Scheduled Ascorbic Acid (Ascorbic Acid), 1,000 MG PO BID B-Complex Vitamins (Vitamin B Complex), 1 TAB PO QAM Coenzyme Q10 (Ubidecarenone) (Co Q 10), 200 MG PO DAILY Ferrous Sulfate (Ferrous Sulfate), 325 MG PO TID Furosemide (Lasix), 40 MG PO BID Insulin Glargine (Lantus Solostar), 12 UNITS SC QPM Isosorbide Mononitrate (Isosorbide Mononitrate ER), 30 MG PO QAM Lorazepam (Ativan), 1 MG PO HS Losartan Potassium (Cozaar), 25 MG PO DAILY Magnesium (Magnesium 250 mg), 250 MG PO DAILY Metformin Hcl (Glucophage), 500 MG PO BID Methimazole (Methimazole), 10 MG PO DAILY Metoprolol Tartrate (Lopressor) (Lopressor), 25 MG PO BID Pantoprazole (Protonix), 40 MG PO BID Spironolactone (Aldactone), 25 MG PO QAM Torsemide (Demadex), 20 MG PO QAM Trazodone Hcl (Trazodone), 25-50 MG PO HS Scheduled PRN Nitroglycerin (Nitrostat), 0.4 MG UT UD PRN for Chest Pain Ondansetron (Ondansetron HCl), 4 MG PO Q4H PRN for Nausea or Vomiting Review of Systems Constitutional: + fever, + chills, No weakness Respiratory: No cough, No sputum, No shortness of breath Cardiovascular: + edema (bilateral LE ), No chest pain, No palpitations Abdomen: No pain, No nausea, No vomiting Musculoskeletal: No swelling, No calf pain Genitourinary - Male: No hematuria, No dysuria, No urinary frequency, No urinary urgency Neurologic: + weakness (generalized), No numbness/tingling, No vertigo Integumentary: No rash, No itch Physical Exam Vital Signs Date Time Temp Pulse Resp B/P (MAP) Pulse Ox O2 Delivery O2 Flow Rate FiO2 03/18/18 02:10 91 20 106/74 99 Room Air 03/18/18 02:02 91 03/18/18 00:36 18 108/74 100 Room Air 03/17/18 22:12 103 03/17/18 22:09 36.5 100 18 107/75 97 Room Air GENERAL: alert no distress, non-toxic EYE EXAM: normal conjunctiva, PERRL and EOM's grossly intact OROPHARYNX: no exudate, no erythema, lips, buccal mucosa, and tongue normal and mucous membranes are moist NECK: supple, no nuchal rigidity, no adenopathy, non-tender LUNGS: Clear to auscultation. Normal chest wall mechanics HEART: no murmurs, S1 normal and S2 normal ABDOMEN: abdomen soft, non-tender, normo-active bowel sounds, no masses, no rebound or guarding. BACK: Back is symmetrical on inspection and there is no deformity, no midline tenderness, no CVA tenderness. SKIN: no rashes and no bruising UPPER EXTREMITIES: upper extremities are grossly normal. LOWER EXTREMITIES:2 + Pitting edema bilaterally NEURO EXAM: Normal sensorium, cranial nerves II-XII intact, normal speech, no gross weakness of arms, no gross weakness of legs. Diagnostics Laboratory Results Results Past 24 Hours Test 03/18/18 00:24 03/18/18 01:40 Range/Units White Blood Count 11.47 4.8-10.8 K/uL Red Blood Count 5.17 4.7-6.1 M/uL Hemoglobin 14.2 14.0-18.0 g/dL Hematocrit 41.8 42-52 % Mean Corpuscular Volume 80.9 80-100 fL Mean Corpuscular Hemoglobin 27.5 25-34 pg Mean Corpuscular Hemoglobin Concent 34.0 32-36 g/dl Platelet Count 125 130-400 K/uL Mean Platelet Volume 11.3 7.4-10.4 fL Neutrophils (%) (Auto) 80.8 % Lymphocytes (%) (Auto) 9.1 % Monocytes (%) (Auto) 8.2 % Eosinophils (%) (Auto) 1.4 % Basophils (%) (Auto) 0.2 % Neutrophils # (Auto) 9.28 1.4-6.5 K/uL Lymphocytes # (Auto) 1.04 1.2-3.4 K/uL Monocytes # (Auto) 0.94 0.11-0.59 K/uL Eosinophils # (Auto) 0.16 0-0.5 K/uL Basophils # (Auto) 0.02 0-0.2 K/uL RDW Standard Deviation 47.6 36.4-46.3 fL RDW Coefficient of Variation 16.5 11.5-14.5 % Immature Granulocyte % (Auto) 0.3 % Immature Granulocyte # (Auto) 0.03 0.00-0.02 K/uL Sodium Level 133 136-145 mmol/L Potassium Level 3.8 3.5-5.1 mmol/L Chloride Level 95 98-107 mmol/L Carbon Dioxide Level 34 21-32 mmol/L Anion Gap 4.0 3-11 mmol/L Blood Urea Nitrogen 48 7-18 mg/dl Creatinine 1.76 0.60-1.40 mg/dl Est Creatinine Clear Calc Drug Dose 42.1 ml/min Estimated GFR () 45.4 Estimated GFR (Non- 39.1 BUN/Creatinine Ratio 27.3 10-20 Random Glucose 100 70-99 mg/dl Calcium Level 8.5 8.5-10.1 mg/dl Magnesium Level 2.1 1.8-2.4 mg/dl Total Bilirubin 1.1 0.2-1 mg/dl Direct Bilirubin 0.5 0-0.2 mg/dl Aspartate Amino Transf (AST/SGOT) 31 15-37 U/L Alanine Aminotransferase (ALT/SGPT) 57 12-78 U/L Alkaline Phosphatase 164 45-117 U/L Total Creatine Kinase 53 39-308 U/L Troponin I 0.027 0-0.045 ng/ml Pro-B-Type Natriuretic Peptide 27250 0-900 pg/ml Total Protein 6.7 6.4-8.2 gm/dl Albumin 3.0 3.4-5.0 gm/dl Thyroid Stimulating Hormone (TSH) 0.219 0.300-4.500 uIu/ml Urine Color DK YELLOW Urine Appearance CLEAR CLEAR Urine pH 5.0 4.5-7.5 Urine Specific [place] 1.022 1.000-1.030 Urine Protein NEG NEG Urine Glucose (UA) NEG NEG Urine Ketones NEG NEG Urine Occult Blood NEG NEG Urine Nitrite NEG NEG Urine Bilirubin NEG NEG Urine Urobilinogen NEG NEG Urine Leukocyte Esterase NEG NEG Impression Assessment and Plan 68 y/o M with PMHx of Mixed Systolic/Diastolic CHF, Esophageal Stenosis, Esophageal Ulcers, T2DM, Paroxysmal Atrial Fibrillation, CKD Stage III, and Hyperthyroidism presenting with progressive ambulatory dysfunction and evaluation for placement in rehab facility. Generalized Weakness, Ambulatory Dysfunction - likely multifactorial, CHF , malnutrition - no focal neurological weakness, H/H wnl, - PT, OT evaluation -patient requesting evaluation for rehab placement Chronic Mixed Diastolic/Systolic CHF - chest clear, 2+ edema (chronic) -Echo 11/2017 * There is a large size inferior, posterior, and septal myocardial infarction with severe hypokinesis to akinesis of the segments. * Left ventricular systolic function is moderate to severely reduced. * The qualitative LV ejection fraction=30% * Diastolic dysfunction, Grade II - c/w diuretics, Spironolactone Mild hyponatremia - appears chronic, unlikely to be contributor to current complaints of weakness - ddx: Diuretic induced vs fluid overload CHF vs CKD -continue to monitor -F/u repeat BMP Paroxysmal Atrial Fibrillation - c/w Losartan, Imdur, Lopressor DANIEL on CKD Stage III - Cr at baseline, improved from recent admission -monitor BMP DM II held metformin ISS DVT Prophylaxis:, Heparin subq Code: FULL PT/OT Resident Physician Supervision Note: I was present with Dr. Chong during the history and exam. I discussed the case with the resident and agree with the findings and plan as documented in the note. Any exceptions or clarifications are listed here: 68 y/o M Hx combined CHF, Esophageal Stenosis, DM II, Paroxysmal Atrial Fibrillation, CKD III, Hyperthyroidism who presents to the ED. He presents with generalized weakness for a few months in addition to weight loss which he states is due to poor PO intake. His states that he cannot ascend stairs and requires rehab therefore. On further questioning, it appears that the pt has had a first floor room converted into a bedroom as his difficulty ascending stairs is ongoing. He has been markedly edematous with chronic pleural effusions for an extended period and does not appear to have any acute issues. His issues, however, appear to be progressive. OE Pale-appearing, elderly meale in no distress - lying flat S1,2 faint +M No air entry at bases - no audible crackles NT, ND Significant BL edema is present P: As above, the pt's has requested transfer to a rehab facility as she is unable to assist the pt in ambulating. We will request a PT/OT eval. Reg his appetite and weight loss. It is difficult to distinguish actual weight loss from diuresis. His albumin does indicate a degree of protein malnutrition which should likely be addressed during this admission as well. 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 Renal function has improved compared to recent numbers and his effusions do not appear to have worsened. We have not therefore, affected any changes to his med regimen at present. Documented By: Az Dos Santos Resuscitation Status VTE Prophylaxis Will order VTE Prophylaxis: Yes Note Total Time: Critical Care 30 - 74 minutes Resident Tracking Resident Involvement: Resident Care Provided Care Provided: Adult Hospital Medicine
[2018-03-18] MEDS ORDERED: GLUCAGON FOR INJ 1 MG VIAL SQ PRN (04:15)
[2018-03-18] MEDS ORDERED: DEXTROSE 50% 50 ML SYR IV PRN (04:15)
[2018-03-18] MEDS ORDERED: GLUCOSE 40% GEL 15 GM TUBE PO PRN (04:15)
[2018-03-18] MEDS ORDERED: GLUCOSE 10 TABS/TUBE PO PRN (04:15)
[2018-03-18 05:00] VITALS: BP 112/75; PULSE 94; TEMP 36.6; O2SAT 94; Ht 177.8 cm; Wt 78.2 kg
[2018-03-18] MEDS ORDERED: HEPARIN SOD 5000 UNIT/0.5 ML CARP SQ SCH (06:00)
--- NOTE | 2018-03-18 06:36 | DIAGNOSTIC IMAGING REPORT ---
BILATERAL LOWER EXTREMITY VENOUS DOPPLER HISTORY: Acute edema of the bilateral lower extremities BLE edema COMPARISON STUDY: CT chest 03/05/2018 FINDINGS: There is normal compressibility and augmentation within the bilateral lower extremity deep venous systems. Pulsatile flow is noted within the deep venous structures, suggesting elevated right heart pressures. Evaluation of the calf vessels is limited secondary to subcutaneous edema. IMPRESSION: No sonographic evidence of deep venous thrombosis within the right or left lower extremity. Electronically signed by: Dilan Camacho M.D. 03/18/2018 6:34 AM Dictated Date/Time: 03/18/2018 6:32 AM
[2018-03-18] MEDS ORDERED: IV FLUIDS COMPLETED PRN (06:45)
--- NOTE | 2018-03-18 07:30 | DIAGNOSTIC IMAGING REPORT ---
CHEST ONE VIEW PORTABLE CLINICAL HISTORY: Weakness. Congestive heart failure. COMPARISON STUDY: Chest CT March 05, 2018 and chest radiograph March 15, 2018. FINDINGS: Median sternotomy wires are noted. There is cardiomegaly. Pulmonary edema has slightly increased. Note is made of bilateral large left and small right pleural effusions which are similar to prior exam. There are persistent bibasilar opacities. IMPRESSION: 1. No significant change in moderate to large left and small right pleural effusions with associated bibasilar opacities. 2. Slight increase in pulmonary edema. Electronically signed by: Vishnu Jerez M.D. 03/18/2018 7:29 AM Dictated Date/Time: 03/18/2018 7:28 AM
[2018-03-18 07:45] VITALS: BP 110/72; PULSE 92; TEMP 36.4; O2SAT 92
[2018-03-18] MEDS: SPIRONOLACTONE 25 MG TAB PO SCH (07:45)
[2018-03-18] MEDS: LOSARTAN POTASSIUM 25 MG TAB PO SCH (07:46)
[2018-03-18] MEDS: FERROUS SULFATE 325 MG TAB PO SCH ×3 (07:47→20:35)
[2018-03-18] MEDS: ISOSORBIDE MONONITRATE 30 MG TABCR PO SCH (07:47)
[2018-03-18] MEDS: PANTOprazole SOD 40 MG TAB PO SCH ×2 (07:48→20:35)
[2018-03-18] MEDS: METHIMAZOLE 5 MG TAB PO SCH (07:48)
[2018-03-18] MEDS ORDERED: METOPROLOL TARTRATE 25 MG TAB PO SCH (08:00)
[2018-03-18] MEDS ORDERED: TORSEMIDE 20 MG TAB PO SCH (08:00)
[2018-03-18] MEDS ORDERED: FUROSEMIDE 40 MG TAB PO SCH (08:00)
[2018-03-18] MEDS: INSULIN ASPART 100 UNITS/ML 3 ML PEN SC SCH ×4 (08:54→20:37)
[2018-03-18] MEDS ORDERED: NURSING VERBAL MED ORDER ONE (10:30)
[2018-03-18] MEDS ORDERED: FUROSEMIDE INJ 40 MG in SYRINGE 0 ML IV ONE (15:45)
[2018-03-18 15:47] VITALS: BP 95/58; PULSE 85; TEMP 36.4; O2SAT 96
--- NOTE | 2018-03-18 16:36 | Family Medicine Progress Note ---
Progress Note Date of Service Mar 18, 2018. Subjective Pt evaluation today including: conversation w/ patient, physical exam, chart review, lab review Pain: no discomfort reported PO Intake: tolerating Voiding: no voiding problems Reports significant weakness over the past 4 weeks. Reports getting enough air but legs would give out if for instance he runs. LE edema also worsening over the past 4 weeks. Feet feel heaving . Also had a soft/normal BM today. Constitutional: + weakness, No fever Respiratory: No shortness of breath Cardiovascular: No chest pain Abdomen: No pain, No nausea, No vomiting Musculoskeletal: + swelling (lower extremity) Male : No dysuria Medications Current Inpatient Medications Medications (Trade) Dose Ordered Sig/[place] Route Start Time Stop Time Status Last Admin Dose Admin Acetaminophen (Tylenol Tab) 650 mg Q4H PRN PO 03/18/18 03:30 04/17/18 03:29 Al Hydrox/Mg Hydrox/Simethicone (Maalox Max Susp) 15 ml Q4H PRN PO 03/18/18 03:30 04/17/18 03:29 Magnesium Hydroxide (Milk Of Magnesia Susp) 30 ml Q6H PRN PO 03/18/18 03:30 04/17/18 03:29 03/18/18 07:53 30 ML Polyethylene (Miralax Powder Packet) 17 gm DAILY PRN PO 03/18/18 03:30 04/17/18 03:29 Ondansetron HCl (Zofran Inj) 4 mg Q6H PRN IV 03/18/18 03:30 04/17/18 03:29 Ferrous Sulfate (Feosol Tab) 325 mg TID PO 03/18/18 08:00 04/17/18 08:59 03/18/18 13:43 325 MG Isosorbide Mononitrate (Imdur Ext Rel Tab) 30 mg QAM PO 03/18/18 08:00 04/17/18 08:59 03/18/18 07:47 30 MG Losartan Potassium (coZAAR TAB) 25 mg DAILY PO 03/18/18 08:00 04/17/18 08:59 03/18/18 07:46 25 MG Nitroglycerin (Nitrostat Tab) 0.4 mg UD PRN UT 03/18/18 03:30 04/17/18 03:29 Ondansetron HCl (Zofran Tab) 4 mg Q4H PRN PO 03/18/18 03:30 04/17/18 03:29 Spironolactone (Aldactone Tab) 25 mg QAM PO 03/18/18 08:00 04/17/18 08:59 03/18/18 07:45 25 MG Methimazole (Methimazole Tab) 10 mg DAILY PO 03/18/18 08:00 04/17/18 08:59 03/18/18 07:48 10 MG Pantoprazole Sodium (Protonix Tab) 40 mg BID PO 03/18/18 08:00 04/17/18 08:59 03/18/18 07:48 40 MG Insulin Aspart (novoLOG ASPART) SLIDING SCALE G... ACHS SC 03/18/18 06:30 04/17/18 06:59 03/18/18 17:28 8 UNITS Glucose (Glucose 40% Gel) 15-30 GRAMS 15 GRAMS... UD PRN PO 03/18/18 04:15 04/17/18 04:14 Glucose (Glucose Chew Tab) 4-8 Tablets 4 Tabl... UD PRN PO 03/18/18 04:15 04/17/18 04:14 Dextrose (Dextrose 50% 50ML Syringe) 25-50ML OF 50% DW IV FOR... UD PRN IV 03/18/18 04:15 04/17/18 04:14 Glucagon (Glucagon Inj) 1 mg UD PRN SQ 03/18/18 04:15 04/17/18 04:14 Miscellaneous (Iv Fluids Completed) 1 ea PRN PRN N/A 03/18/18 06:45 03/18/19 06:44 Torsemide (Demadex Tab) 20 mg BID PO 03/18/18 20:00 04/17/18 08:59 Metoprolol Succinate (Toprol Xl Tab) 25 mg BID PO 03/18/18 20:00 04/17/18 19:59 Objective Vital Signs Date Time Temp Pulse Resp B/P (MAP) Pulse Ox O2 Delivery O2 Flow Rate FiO2 03/18/18 16:10 Room Air 03/18/18 15:47 36.4 85 22 95/58 (70) 96 Room Air 03/18/18 08:00 Room Air 03/18/18 07:45 36.4 92 18 110/72 (85) 92 Room Air 03/18/18 05:00 36.6 94 18 112/75 94 Room Air 03/18/18 04:28 95 23 114/72 94 03/18/18 03:48 96 23 108/78 96 Room Air 03/18/18 02:10 91 20 106/74 99 Room Air 03/18/18 02:02 91 03/18/18 00:36 18 108/74 100 Room Air 03/17/18 22:12 103 03/17/18 22:09 36.5 100 18 107/75 97 Room Air Physical Exam General Appearance: no apparent distress Eyes: normal inspection Neck: supple Respiratory/Chest: lungs clear, + decreased breath sounds (L posterior mid and basilar lung santana) Cardiovascular: regular rate, rhythm, no murmur Abdomen: normal bowel sounds, non tender, soft Extremities: + swelling (3+ bilateral LE edema) Neurologic/Psychiatric: alert, oriented x 3 Skin: + pertinent finding (scabs/bruising b/l LEs) Laboratory Results 03/18/18 00:24 Red Blood Count 5.17, Mean Corpuscular Volume 80.9, Mean Corpuscular Hemoglobin 27.5, Mean Corpuscular Hemoglobin Concent 34.0, Mean Platelet Volume 11.3, Neutrophils (%) (Auto) 80.8, Lymphocytes (%) (Auto) 9.1, Monocytes (%) (Auto) 8.2, Eosinophils (%) (Auto) 1.4, Basophils (%) (Auto) 0.2, Neutrophils # (Auto) 9.28, Lymphocytes # (Auto) 1.04, Monocytes # (Auto) 0.94, Eosinophils # (Auto) 0.16, Basophils # (Auto) 0.02 03/18/18 00:24 Test 03/18/18 00:24 03/18/18 01:40 03/18/18 16:58 White Blood Count 11.47 K/uL (4.8-10.8) Red Blood Count 5.17 M/uL (4.7-6.1) Hemoglobin 14.2 g/dL (14.0-18.0) Hematocrit 41.8 % (42-52) Mean Corpuscular Volume 80.9 fL (80-100) Mean Corpuscular Hemoglobin 27.5 pg (25-34) Mean Corpuscular Hemoglobin Concent 34.0 g/dl (32-36) Platelet Count 125 K/uL (130-400) Mean Platelet Volume 11.3 fL (7.4-10.4) Neutrophils (%) (Auto) 80.8 % Lymphocytes (%) (Auto) 9.1 % Monocytes (%) (Auto) 8.2 % Eosinophils (%) (Auto) 1.4 % Basophils (%) (Auto) 0.2 % Neutrophils # (Auto) 9.28 K/uL (1.4-6.5) Lymphocytes # (Auto) 1.04 K/uL (1.2-3.4) Monocytes # (Auto) 0.94 K/uL (0.11-0.59) Eosinophils # (Auto) 0.16 K/uL (0-0.5) Basophils # (Auto) 0.02 K/uL (0-0.2) RDW Standard Deviation 47.6 fL (36.4-46.3) RDW Coefficient of Variation 16.5 % (11.5-14.5) Immature Granulocyte % (Auto) 0.3 % Immature Granulocyte # (Auto) 0.03 K/uL (0.00-0.02) Anion Gap 4.0 mmol/L (3-11) Est Creatinine Clear Calc Drug Dose 42.1 ml/min Estimated GFR () 45.4 Estimated GFR (Non- 39.1 BUN/Creatinine Ratio 27.3 (10-20) Calcium Level 8.5 mg/dl (8.5-10.1) Magnesium Level 2.1 mg/dl (1.8-2.4) Total Bilirubin 1.1 mg/dl (0.2-1) Direct Bilirubin 0.5 mg/dl (0-0.2) Aspartate Amino Transf (AST/SGOT) 31 U/L (15-37) Alanine Aminotransferase (ALT/SGPT) 57 U/L (12-78) Alkaline Phosphatase 164 U/L (45-117) Total Creatine Kinase 53 U/L (39-308) Troponin I 0.027 ng/ml (0-0.045) Pro-B-Type Natriuretic Peptide 69100 pg/ml (0-900) Total Protein 6.7 gm/dl (6.4-8.2) Albumin 3.0 gm/dl (3.4-5.0) Thyroid Stimulating Hormone (TSH) 0.219 uIu/ml (0.300-4.500) Urine Color DK YELLOW Urine Appearance CLEAR (CLEAR) Urine pH 5.0 (4.5-7.5) Urine Specific Hagerman 1.022 (1.000-1.030) Urine Protein NEG (NEG) Urine Glucose (UA) NEG (NEG) Urine Ketones NEG (NEG) Urine Occult Blood NEG (NEG) Urine Nitrite NEG (NEG) Urine Bilirubin NEG (NEG) Urine Urobilinogen NEG (NEG) Urine Leukocyte Esterase NEG (NEG) Bedside Glucose 93 mg/dl (70-99) Assessment and Plan 68 y/o M with PMHx of Mixed Systolic/Diastolic CHF, Esophageal Stenosis, Esophageal Ulcers, T2DM, Paroxysmal Atrial Fibrillation, CKD Stage III, and Hyperthyroidism presenting with progressive ambulatory dysfunction and weakness x 4 weeks; pending evaluation for placement in rehab facility. Generalized Weakness, Ambulatory Dysfunction - likely multifactorial, CHF, malnutrition - no focal neurological weakness, H/H wnl - PT, OT recommended rehab and pt on board Chronic Mixed Diastolic/Systolic CHF - likely some acute on chronic picture - chest clear, with diminished breath sounds on the L - 3+ LE edema - CXR: increased pulm edema, moderate L and small R pleural effusion w/t bibasilar opacities (compared to chest Ct on 03/05) - Echo 11/2017: EF 30%, grade 2 diastolic dysf; large inferior, posterior, and septal MIs with severe hypokinesis to akinesis of the segments. - On Lasix 40mg IV - Holding Torsamide 20mg QAM - Continue Spironolactone 25mg QAM Mild hyponatremia - appears chronic, unlikely to be contributor to current complaints of weakness - ddx: Diuretic induced vs fluid overload CHF vs CKD - continue to monitor BMP Paroxysmal Atrial Fibrillation - Continue Losartan 25mg daily, Imdur 30mg QAM, Lopressor 25mg BID DANIEL on CKD Stage III - Cr at baseline, 1.7 - Will monitor BMP Hyperthyroidism: - methimazole 10mg daily DM II - Holding metformin - ISS DVT Prophylaxis: SCDs (pt refused heparin due to esophageal ulcers perhaps related to bleeding) Code: FULL PT/OT: recommended inpt rehab Resident Physician Supervision Note: I interviewed and examined the patient. Discussed with Dr. Ramos and agree with findings and plan as documented in the note. Any exceptions or clarifications are listed here: None Documented By: Mike Ramirez feeling weak. not clearly a sob component, although notes swelling gradually worsening over last 4wks vitals noted nad lungs cta b/l except diminished BS L mid and base, no r/r/w good effort weakness - likely multifactorial - see above chronic systolic CHF w L effusion - with conflicting data (hx, exam, CXR, BNP all giving equal plausibility to wet and dry) will treat with additional IV lasix and follow into tomorrow - if no improvement/low UO/rising creatinine, then clearly only thing to follow w CHF would be if effusion needs drained - which without hypoxia/MCCOLLUM seems unlikely hyperthyroid - TSH just slightly low - continue methimazole work towards rehab Resident Involvement: Resident Care Provided Care Provided: Adult Hospital Medicine
--- NOTE | 2018-03-18 18:47 | CARDIOLOGY CONSULTATION ---
DATE OF CONSULTATION: 03/18/2018 PRIMARY CARE PHYSICIAN: Dr. Moore. PRIMARY REHABILITATION NURSE: Dr. Landa. INDICATIONS: Acute weakness and fatigue. HISTORY OF PRESENT ILLNESS: The patient is a very complex 68-year-old male whose past medical history is noted for complex cardiac anatomy which includes diffuse coronary artery disease, status post coronary bypass grafting in 07/2006, receiving at that time a HAWKINS graft to the LAD and a saphenous vein graft to the obtuse marginal, past coronary interventions of the ramus intermedius and most recent cardiac catheterization in 08/2017 demonstrating occlusion of the LAD, both patent HAWKINS graft to the LAD. The circumflex marginal was noted to be occluded with occlusion of the vein graft to the obtuse marginal. The right coronary artery had 100% narrowing with distal filling via collateral flow. LV systolic function is noted to be impaired. EF 30-35%. Carries a history of left bundle branch block, moderate to severe mitral insufficiency, past decompensated systolic and diastolic heart failure, does carry a history of paroxysmal atrial fibrillation, not on anticoagulation due to difficulties with Coumadin intolerance and recent hospitalizations with upper GI bleed and esophageal ulcerations. He has had multiple hospitalizations since the first of the year. Most recently was hospitalized approximately 2 weeks ago as evidence of mild dehydration per report. The patient represents noting gradual increasing weakness over the past weeks' time, was ambulatory last week and then yesterday of admission, was "too weak to stand." He had noted some increase in lower extremity edema as well as difficulty with eating and dysphagia. He denies any specific fevers, chills or productive cough. He has been taking medications as prescribed. Oral intake has been reduced, the weight has been stable by records. Denies headache or visual changes. Notes no overt bleeding. Notes past difficulties with dysphagia, it has been somewhat better recently. REVIEW OF SYSTEMS: Otherwise negative. ALLERGIES: AMOXICILLIN, CLAVULANIC ACID, IODINATED CONTRAST, PREDNISONE. PAST SURGICAL HISTORY: Notable for prior coronary bypass grafting as described x2, multiple cardiac catheterizations. FAMILY HISTORY: Positive for ischemic heart disease. SOCIAL HISTORY: The patient is a retired brandon, nonsmoker, nondrinker. PHYSICAL EXAMINATION: GENERAL: The patient at the time of examination, sitting out of bed in chair having lunch. Currently, denies any acute complaint. VITAL SIGNS: Heart rate is 90, blood pressure is 110/72. HEENT: Normocephalic and atraumatic. Nares without discharge. Throat was clear. NECK: Supple without thyromegaly, lymphadenopathy, JVD. LUNGS: Reveal mildly diminished breath sounds, but are clear. CARDIOVASCULAR: Regular, grade 2/6 systolic murmur. There are no diastolic murmurs heard best at the apex and left upper sternal border. ABDOMEN: Soft with minimal distention. EXTREMITIES: Reveal 2+ pasty edema, both lower extremities. NEUROLOGIC: The patient is answering questions. MEDICATIONS: Prior to hospitalization were vitamin C at 1000 mg b.i.d., B complex 1 q.a.m., Coenzyme Q10 200 mg p.o. day, ferrous sulfate 325 t.i.d., isosorbide mononitrate 30 mg p.o. daily, Lantus insulin 12 units subQ q.p.m., lorazepam at bedtime 1 mg, losartan 25 mg daily, magnesium 250 mg p.o. daily, metformin 500 mg b.i.d., methimazole 10 mg p.o. daily, metoprolol tartrate 25 b.i.d., Protonix 40 mg b.i.d., spironolactone 25 mg q.a.m., torsemide 20 mg q. a.m., trazodone 25/50 at bedtime. LABORATORY DATA: On presentation, white cell count was 11.4, hemoglobin 14.2, hematocrit 41.8. Sodium is 133, potassium 3.8, chloride is 95, bicarbonate is 34, BUN is 48, creatinine is 1.76, glucose is 100, bilirubin is 1.1, alkaline phosphatase 164. Troponin I 0.27. TSH is 0.219, albumin level is 3.0. BNP is elevated at 22,000. Chest x-ray reveals bilateral pleural effusions, left greater than right. Mild increase in interstitial markings. Echocardiogram on 12/18/2017 demonstrated a large inferior, posterior, and septal myocardial infarction with severe hypokinesis to akinesis of the segments. EF 30% with diastolic dysfunction and no significant mitral insufficiency on current study. IMPRESSION: A 68-year-old male presents with sudden onset weakness and fatigue after multiple hospitalizations and ER visits with variable degrees of compensation of chronic systolic heart failure. The patient denies any specific change in functional capacity other than acute weakness though has been seen in the ER as little as 3 days ago with near syncopal event. RECOMMENDATIONS: We will attempt to optimize medical therapy. Current x-ray and laboratory studies suggest mild volume overload with lower extremities demonstrating 2+ edema. PLAN: Will be to increase diuretics slightly with increasing torsemide to 20 mg twice per day. Blood cultures will be ordered given multiple ER presentations and hospitalizations, exclude occult infection and metoprolol tartrate will be switched to metoprolol succinate for optimization. I agree with plans for rehabilitation at an extended care facility as post-hospital discharge to aid in functional improvement and medical compliance. Medication adjustments have been made with first dose of increased torsemide to be received this afternoon. MTDD
[2018-03-18] MEDS: METOPROLOL SUCC 25MG EXT REL TAB PO SCH (20:34)
[2018-03-18] MEDS: TORSEMIDE 20 MG TAB PO SCH (20:34)
[2018-03-18 20:36] VITALS: BP 112/71; PULSE 93
[2018-03-19] VITALS: BP 100/58; PULSE 89; TEMP 36.4; O2SAT 96
[2018-03-19 06:39] LABS: MEAN CORPUSCULAR HGB CONC 33.5 g/dl (32-36)
[2018-03-19 06:52] LABS: HEMATOCRIT 39.4 % (42-52); HEMOGLOBIN 13.2 g/dL (14.0-18.0); MEAN CELL VOLUME 80.6 fL (80-100); RED CELL DISTRIBUTION WIDTH CV 16.7 % (11.5-14.5); RED CELL DISTRIBUTION WIDTH SD 47.7 fL (36.4-46.3); WHITE BLOOD COUNT 10.28 K/uL (4.8-10.8)
[2018-03-19 07:15] LABS: MEAN PLATELET VOLUME 11.4 fL (7.4-10.4); PLATELET COUNT 108 K/uL (130-400)
[2018-03-19 07:16] LABS: BASO % 0.2 %; BASO ABS # 0.02 K/uL (0-0.2); EOS % 2.6 %; EOS ABS # 0.27 K/uL (0-0.5); IG# 0.03 K/uL (0.00-0.02); LYMPH ABS # 1.13 K/uL (1.2-3.4); MONO % 9.9 %; MONO ABS # 1.02 K/uL (0.11-0.59); NEUT ABS # 7.81 K/uL (1.4-6.5)
[2018-03-19 07:21] LABS: CREATININE 1.45 mg/dl (0.60-1.40); POTASSIUM 3.4 mmol/L (3.5-5.1)
[2018-03-19 07:53] VITALS: BP 115/76; PULSE 91; TEMP 36.6; O2SAT 96
[2018-03-19] MEDS ORDERED: POTASSIUM CHLORIDE 20 MEQ TABCR PO STA (08:14)
[2018-03-19] MEDS: FERROUS SULFATE 325 MG TAB PO SCH ×3 (08:25→19:55)
[2018-03-19] MEDS: ISOSORBIDE MONONITRATE 30 MG TABCR PO SCH (08:25)
[2018-03-19] MEDS: LOSARTAN POTASSIUM 25 MG TAB PO SCH (08:25)
[2018-03-19] MEDS: SPIRONOLACTONE 25 MG TAB PO SCH (08:26)
[2018-03-19] MEDS: METHIMAZOLE 5 MG TAB PO SCH (08:26)
[2018-03-19] MEDS: PANTOprazole SOD 40 MG TAB PO SCH ×2 (08:26→19:55)
[2018-03-19] MEDS: TORSEMIDE 20 MG TAB PO SCH ×2 (08:27→19:55)
[2018-03-19] MEDS: INSULIN ASPART 100 UNITS/ML 3 ML PEN SC SCH ×4 (08:31→21:07)
[2018-03-19] MEDS: METOPROLOL SUCC 25MG EXT REL TAB PO SCH ×2 (08:32→19:53)
--- NOTE | 2018-03-19 11:06 | Cardiology Follow-Up ---
Subjective Subjective Date of Service: March 19, 2018. Pt evaluation today including: conversation w/ patient, physical exam, chart review, lab review, review of studies, review of inpatient medication list Additional Details: Pt seen and examined oob in chair, states that he feels weak but otherwise well. Did tolerate breakfast well this AM and is anxious to ambulate. Legs elevated, still with LE edema. Denies cp, sob, palpitations, lightheadedness or dizziness. Problem List Medical Problems: (1) Abscess of right foot including toes Status: Acute (2) Acute chest pain Status: Acute (3) Acute congestive heart failure Status: Acute (4) DANIEL (acute kidney injury) Status: Acute (5) Cellulitis Status: Acute (6) CHF (congestive heart failure) Status: Chronic (7) CHF exacerbation Status: Acute (8) CHF exacerbation Status: Acute (9) Dehydration Status: Acute (10) Dehydration Status: Acute (11) Diabetic foot infection Status: Acute (12) Elevated LFTs Status: Acute (13) Elevated troponin Status: Acute (14) Generalized weakness Status: Acute (15) Insomnia Status: Acute (16) Intermittent epigastric abdominal pain Status: Acute (17) Leukocytosis Status: Acute (18) Lymphangitis, acute, lower leg Status: Acute (19) Pulmonary edema Status: Acute (20) Sepsis Status: Acute (21) Syncope Status: Acute (22) Weakness Status: Acute Review of Systems Constitutional: + weakness, No fever Respiratory: No see HPI, No cough, No sputum, No wheezing, No shortness of breath, No dyspnea on exertion, No dyspnea at rest, No hemoptysis, No problem reported Cardiac: + edema, No see HPI, No chest pain, No orthopnea, No PND, No claudication, No palpitations, No problem reported Abdomen: No pain, No nausea, No vomiting Musculoskeletal: + swelling (lower extremity) Male : No dysuria Objective Vital Signs Last Vital Signs Documentation Date Time Temp Pulse Resp B/P (MAP) Pulse Ox O2 Delivery O2 Flow Rate FiO2 03/19/18 07:53 36.6 91 18 115/76 (89) 96 Room Air Physical Exam: General Appearance: WD/WN, no apparent distress Eyes: bilateral eyes normal inspection, bilateral eyes PERRL, bilateral eyes EOMI ENT: normal ENT inspection, hearing grossly normal, pharynx normal Neck: supple, no adenopathy, thyroid normal, no JVD, no carotid bruits, trachea midline Respiratory/Chest: chest non-tender, no respiratory distress, no accessory muscle use, + decreased breath sounds (b/l bases otherwise, clear) Cardiovascular: regular rate, rhythm, no murmur Abdomen: normal bowel sounds, non tender, soft, no organomegaly Extremities: normal range of motion, non-tender, normal inspection, no calf tenderness, + swelling (2+ bilateral LE edema) Neurologic/Psychiatric: installment agent II-XII nml as tested, no motor/sensory deficits, alert, normal mood/affect, oriented x 3 Skin: normal color, warm/dry, no rash, + pertinent finding (scabs/bruising b/l LEs) Lymphatic: no adenopathy Assessment and Plan 1. malnutrition and deconditioning for inpt rehab encouraged increased oral intake 2. LE edema likely multifactorial given: mitral regurgitation ischemic cardiomyopathy malnutrition chronic venous insufficiency cont bid torsemide, follow and replete lytes as necessary strict I/O's compression stockings ordered agree with ambulation 3. ischemic cardiomyopathy stable
--- NOTE | 2018-03-19 12:27 | Family Medicine Progress Note ---
Progress Note Date of Service March 19, 2018. Subjective Pt evaluation today including: conversation w/ patient, physical exam, chart review, lab review Pain: denies any pain PO Intake: tolerating Voiding: no voiding problems This AM reports improvement in weakness. Pt slept better. No sob. But LE edema about the same Constitutional: No fever Respiratory: + shortness of breath Cardiovascular: No chest pain Abdomen: No pain, No nausea, No vomiting Musculoskeletal: + problem reported (LE edema) Male : No dysuria Medications Current Inpatient Medications Medications (Trade) Dose Ordered Sig/[place] Route Start Time Stop Time Status Last Admin Dose Admin Acetaminophen (Tylenol Tab) 650 mg Q4H PRN PO 03/18/18 03:30 04/17/18 03:29 Al Hydrox/Mg Hydrox/Simethicone (Maalox Max Susp) 15 ml Q4H PRN PO 03/18/18 03:30 04/17/18 03:29 Magnesium Hydroxide (Milk Of Magnesia Susp) 30 ml Q6H PRN PO 03/18/18 03:30 04/17/18 03:29 03/18/18 07:53 30 ML Polyethylene (Miralax Powder Packet) 17 gm DAILY PRN PO 03/18/18 03:30 04/17/18 03:29 Ondansetron HCl (Zofran Inj) 4 mg Q6H PRN IV 03/18/18 03:30 04/17/18 03:29 Ferrous Sulfate (Feosol Tab) 325 mg TID PO 03/18/18 08:00 04/17/18 08:59 03/19/18 08:25 325 MG Isosorbide Mononitrate (Imdur Ext Rel Tab) 30 mg QAM PO 03/18/18 08:00 04/17/18 08:59 03/19/18 08:25 30 MG Losartan Potassium (coZAAR TAB) 25 mg DAILY PO 03/18/18 08:00 04/17/18 08:59 03/19/18 08:25 25 MG Nitroglycerin (Nitrostat Tab) 0.4 mg UD PRN UT 03/18/18 03:30 04/17/18 03:29 Ondansetron HCl (Zofran Tab) 4 mg Q4H PRN PO 03/18/18 03:30 04/17/18 03:29 Spironolactone (Aldactone Tab) 25 mg QAM PO 03/18/18 08:00 04/17/18 08:59 03/19/18 08:26 25 MG Methimazole (Methimazole Tab) 10 mg DAILY PO 03/18/18 08:00 04/17/18 08:59 03/19/18 08:26 10 MG Pantoprazole Sodium (Protonix Tab) 40 mg BID PO 03/18/18 08:00 04/17/18 08:59 03/19/18 08:26 40 MG Insulin Aspart (novoLOG ASPART) SLIDING SCALE G... ACHS SC 03/18/18 06:30 04/17/18 06:59 03/19/18 12:38 10 UNITS Glucose (Glucose 40% Gel) 15-30 GRAMS 15 GRAMS... UD PRN PO 03/18/18 04:15 04/17/18 04:14 Glucose (Glucose Chew Tab) 4-8 Tablets 4 Tabl... UD PRN PO 03/18/18 04:15 04/17/18 04:14 Dextrose (Dextrose 50% 50ML Syringe) 25-50ML OF 50% DW IV FOR... UD PRN IV 03/18/18 04:15 04/17/18 04:14 Glucagon (Glucagon Inj) 1 mg UD PRN SQ 03/18/18 04:15 04/17/18 04:14 Miscellaneous (Iv Fluids Completed) 1 ea PRN PRN N/A 03/18/18 06:45 03/18/19 06:44 Torsemide (Demadex Tab) 20 mg BID PO 03/18/18 20:00 04/17/18 08:59 03/19/18 08:27 20 MG Metoprolol Succinate (Toprol Xl Tab) 25 mg BID PO 03/18/18 20:00 04/17/18 19:59 03/19/18 08:32 25 MG Potassium Chloride (Klor-Con Tab) 20 meq BID PO 03/19/18 20:00 04/18/18 19:59 Objective Vital Signs Date Time Temp Pulse Resp B/P (MAP) Pulse Ox O2 Delivery O2 Flow Rate FiO2 03/19/18 15:14 35.8 82 20 92/55 (67) 98 Room Air 03/19/18 08:00 Room Air 03/19/18 07:53 36.6 91 18 115/76 (89) 96 Room Air 03/19/18 00:01 Room Air 03/19/18 00:00 36.4 89 20 100/58 (72) 96 Room Air 03/18/18 20:36 93 112/71 (85) Physical Exam General Appearance: no apparent distress Eyes: normal inspection Neck: supple Respiratory/Chest: lungs clear, + decreased breath sounds (L basilar posterior lung field) Cardiovascular: regular rate, rhythm, no murmur Abdomen: normal bowel sounds, non tender, soft Extremities: non-tender, + swelling (3+ LE edema b/l) Neurologic/Psychiatric: alert Skin: warm/dry Laboratory Results 03/19/18 05:47 Red Blood Count 4.89, Mean Corpuscular Volume 80.6, Mean Corpuscular Hemoglobin 27.0, Mean Corpuscular Hemoglobin Concent 33.5, Mean Platelet Volume 11.4, Neutrophils (%) (Auto) 76.0, Lymphocytes (%) (Auto) 11.0, Monocytes (%) (Auto) 9.9, Eosinophils (%) (Auto) 2.6, Basophils (%) (Auto) 0.2, Neutrophils # (Auto) 7.81, Lymphocytes # (Auto) 1.13, Monocytes # (Auto) 1.02, Eosinophils # (Auto) 0.27, Basophils # (Auto) 0.02 03/19/18 05:47 Test 03/19/18 05:47 03/19/18 11:42 White Blood Count 10.28 K/uL (4.8-10.8) Red Blood Count 4.89 M/uL (4.7-6.1) Hemoglobin 13.2 g/dL (14.0-18.0) Hematocrit 39.4 % (42-52) Mean Corpuscular Volume 80.6 fL (80-100) Mean Corpuscular Hemoglobin 27.0 pg (25-34) Mean Corpuscular Hemoglobin Concent 33.5 g/dl (32-36) Platelet Count 108 K/uL (130-400) Mean Platelet Volume 11.4 fL (7.4-10.4) Neutrophils (%) (Auto) 76.0 % Lymphocytes (%) (Auto) 11.0 % Monocytes (%) (Auto) 9.9 % Eosinophils (%) (Auto) 2.6 % Basophils (%) (Auto) 0.2 % Neutrophils # (Auto) 7.81 K/uL (1.4-6.5) Lymphocytes # (Auto) 1.13 K/uL (1.2-3.4) Monocytes # (Auto) 1.02 K/uL (0.11-0.59) Eosinophils # (Auto) 0.27 K/uL (0-0.5) Basophils # (Auto) 0.02 K/uL (0-0.2) RDW Standard Deviation 47.7 fL (36.4-46.3) RDW Coefficient of Variation 16.7 % (11.5-14.5) Immature Granulocyte % (Auto) 0.3 % Immature Granulocyte # (Auto) 0.03 K/uL (0.00-0.02) Platelet Estimate DECREASED Echinocytes 1+ Anion Gap 6.0 mmol/L (3-11) Est Creatinine Clear Calc Drug Dose 51.0 ml/min Estimated GFR () 57.3 Estimated GFR (Non- 49.5 BUN/Creatinine Ratio 25.6 (10-20) Calcium Level 8.0 mg/dl (8.5-10.1) Bedside Glucose 224 mg/dl (70-99) Assessment and Plan 68 y/o M with PMHx of Mixed Systolic/Diastolic CHF, Esophageal Stenosis, Esophageal Ulcers, T2DM, Paroxysmal Atrial Fibrillation, CKD Stage III, and Hyperthyroidism who presented with progressive ambulatory dysfunction and weakness x 4 weeks; pending placement in rehab facility with improving volume status. Generalized Weakness, Ambulatory Dysfunction - likely multifactorial, CHF, malnutrition - no focal neurological weakness, H/H wnl - PT, OT recommended rehab and pt on board - Pending [facility] placement LE edema - likely multifactoral (chronic mixed diastolic/systolic CHF vs. chronic venous insufficiency vs. ischemic cardiomyopathy vs. MV regurg vs. malnutrition) - chest clear, with diminished breath sounds on the L - 3+ LE edema - CXR: increased pulm edema, moderate L and small R pleural effusion w/t bibasilar opacities (compared to chest Ct on 03/05) - Echo 11/2017: EF 30%, grade 2 diastolic dysf; large inferior, posterior, and septal MIs with severe hypokinesis to akinesis of the segments. - Received Lasix 40mg IV x 1 - Continue Spironolactone 25mg QAM - Cardiology consulted - increased Torsamide 20mg to BID - changed metoprolol 25mg BID to succinate from tartrate Mild hyponatremia - appears chronic, unlikely to be contributor to current complaints of weakness - ddx: Diuretic induced vs fluid overload CHF vs CKD - continue to monitor BMP Paroxysmal Atrial Fibrillation - Continue Losartan 25mg daily, Imdur 30mg QAM, Lopressor 25mg BID (changed to succinate from tartrate) DANIEL on CKD Stage III - Cr at baseline, 1.4 - Will monitor BMP Hyperthyroidism: - Continue methimazole 10mg daily DM II - Holding metformin - Continue ISS DVT Prophylaxis: SCDs (pt refused heparin due to esophageal ulcers perhaps related to bleeding) Code: FULL PT/OT: recommended inpt rehab Dispo: pending rehab placement Resident Physician Supervision Note: I interviewed and examined the patient. Discussed with Dr. Ramos and agree with findings and plan as documented in the note. Any exceptions or clarifications are listed here: None Documented By: Mike Ramirez feeling weak. breathing ok vitals noted nad lungs cta b/l except diminished BS L mid and base, no r/r/w good effort weakness - likely multifactorial - see above chronic systolic CHF w L effusion - continue gentle diuresis hyperthyroid - TSH just slightly low - continue methimazole, f/u TSH ~4wks work towards rehab once approved Resident Involvement: Resident Care Provided Care Provided: Adult Hospital Medicine
[2018-03-19 15:14] VITALS: BP 92/55; PULSE 82; TEMP 35.8; O2SAT 98
[2018-03-19] MEDS: CARBOHYDRATES FOR HYPOGLYCEMIA PO PRN ×3 (17:11→17:32)
[2018-03-19 19:53] VITALS: BP 99/67; PULSE 86
[2018-03-19] MEDS: POTASSIUM CHLORIDE 20 MEQ TABCR PO SCH (19:56)
[2018-03-19 23:40] VITALS: BP 92/58; PULSE 90; TEMP 36.1; O2SAT 94
[2018-03-20 05:51] LABS: HEMATOCRIT 38.4 % (42-52); MEAN CELL VOLUME 80.2 fL (80-100); MEAN CORPUSCULAR HEMOGLOBIN 27.1 pg (25-34); MEAN CORPUSCULAR HGB CONC 33.9 g/dl (32-36); RED CELL DISTRIBUTION WIDTH CV 16.7 % (11.5-14.5); RED CELL DISTRIBUTION WIDTH SD 47.5 fL (36.4-46.3); WHITE BLOOD COUNT 9.86 K/uL (4.8-10.8)
[2018-03-20 06:03] LABS: MEAN PLATELET VOLUME 10.2 fL (7.4-10.4); PLATELET COUNT 92 K/uL (130-400)
[2018-03-20 06:15] LABS: BASO % 0.1 %; BASO ABS # 0.01 K/uL (0-0.2); EOS % 2.4 %; EOS ABS # 0.24 K/uL (0-0.5); IG# 0.04 K/uL (0.00-0.02); LYMPH % 7.3 %; LYMPH ABS # 0.72 K/uL (1.2-3.4); MONO % 11.5 %; MONO ABS # 1.13 K/uL (0.11-0.59); NEUT % 78.3 %; NEUT ABS # 7.72 K/uL (1.4-6.5)
[2018-03-20 06:21] LABS: CALCIUM 7.8 mg/dl (8.5-10.1); CREATININE 1.73 mg/dl (0.60-1.40)
[2018-03-20 07:22] VITALS: BP 102/67; PULSE 98; TEMP 36.5; O2SAT 95
[2018-03-20] MEDS: PANTOprazole SOD 40 MG TAB PO SCH (08:57)
[2018-03-20] MEDS: FERROUS SULFATE 325 MG TAB PO SCH ×2 (08:57→13:30)
[2018-03-20] MEDS: METOPROLOL SUCC 25MG EXT REL TAB PO SCH (08:57)
[2018-03-20] MEDS: METHIMAZOLE 5 MG TAB PO SCH (08:58)
[2018-03-20] MEDS: ISOSORBIDE MONONITRATE 30 MG TABCR PO SCH (08:58)
[2018-03-20] MEDS: SPIRONOLACTONE 25 MG TAB PO SCH (08:58)
[2018-03-20] MEDS: TORSEMIDE 20 MG TAB PO SCH (08:59)
[2018-03-20] MEDS: POTASSIUM CHLORIDE 20 MEQ TABCR PO SCH (08:59)
[2018-03-20] MEDS: LOSARTAN POTASSIUM 25 MG TAB PO SCH (08:59)
[2018-03-20] MEDS: INSULIN ASPART 100 UNITS/ML 3 ML PEN SC SCH ×2 (09:02→13:29)
--- NOTE | 2018-03-20 10:22 | Cardiology Follow-Up ---
Subjective General Date of Service: March 20, 2018. Chief Complaint: Weakness Pt evaluation today including: conversation w/ patient, physical exam, chart review, lab review, review of studies, review of inpatient medication list History of Present Illness Patient seen and examined while sitting in the bedside chair. Notes generalized malaise and fatigue. Appetite and intake have improved considerably this admission. Denies chest pain, palpitations, or worsening dyspnea. Allergies Coded Allergies: Amoxicillin (Verified Allergy, Severe, hives swelling redness lip swelling , 03/17/18) Clavulanic Acid (Verified Allergy, Severe, hypotensive shock, 03/17/18) Iodinated Diagnostic Agents (Verified Allergy, Intermediate, HIVES, ) Prednisone (Verified Allergy, Intermediate, SHORTNESS OF BREATH, 03/17/18) as per patient Social History Smoking Status: Former Smoker Hx Tobacco Use In Past Year?: No Hx Alcohol Use - Type And Amou: No Hx Substance Use - Type And Am: No Problem List Medical Problems: (1) Abscess of right foot including toes Status: Acute (2) Acute chest pain Status: Acute (3) Acute congestive heart failure Status: Acute (4) DANIEL (acute kidney injury) Status: Acute (5) Cellulitis Status: Acute (6) CHF (congestive heart failure) Status: Chronic (7) CHF exacerbation Status: Acute (8) CHF exacerbation Status: Acute (9) Dehydration Status: Acute (10) Dehydration Status: Acute (11) Diabetic foot infection Status: Acute (12) Elevated LFTs Status: Acute (13) Elevated troponin Status: Acute (14) Generalized weakness Status: Acute (15) Insomnia Status: Acute (16) Intermittent epigastric abdominal pain Status: Acute (17) Leukocytosis Status: Acute (18) Lymphangitis, acute, lower leg Status: Acute (19) Pulmonary edema Status: Acute (20) Sepsis Status: Acute (21) Syncope Status: Acute (22) Weakness Status: Acute Physical Exam Vital Signs Last Vital Signs Documentation Date Time Temp Pulse Resp B/P (MAP) Pulse Ox O2 Delivery O2 Flow Rate FiO2 03/20/18 07:22 36.5 98 18 102/67 (79) 95 Room Air Physical Exam Constitutional: Level of Distress: NAD, chronically ill Psychiatric: Mental Status: active & alert Orientation: to time, to place, to person Memory: recent memory normal, remote memory normal Head: normocephalic, atraumatic Eyes: Pupils: PERRLA Neck: pertinent finding (No overt JVP (examined in a chair)) Lungs: Auscultation: no wheezing, no rales/crackles, no rhonchi, deminished air movement, decreased breath sounds, pertinent finding (auscultation suggestive of bilateral pleural effusions) Cardiovascular: Heart Auscultation: normal S1, normal S2, tachycardia, II/ JHON Peripheral Pulses: Radial Pulse: normal on the left, normal on the right Dorsalis Pedis Pulse: absent on the left, absent on the right Abdomen: Bowel Sounds: normal Inspection & Palpation: soft Liver: non-tender, no hepatomegaly Extremities: no cyanosis, no clubbing, edema (1-2+) Neurologic: Cranial Nerves: grossly intact Assessment and Plan Assessment and Plan Malnutrition and deconditioning. For inpatient rehabilitation. Stable multifactorial lower extremity peripheral edema (mitral regurgitation, ischemic cardiomyopathy, malnutrition, chronic venous insufficiency) Ischemic cardiomyopathy. Stable RECOMMENDATIONS/PLAN: Given symptoms, observed mild hypotension, and increased heart rates would decrease losartan dosing, concurrently increasing Toprol XL slightly to 37.5 mg twice per day. Increase activity as tolerated. Laboratory Results Last 24 Hours Test 03/19/18 11:42 03/19/18 16:50 03/19/18 17:08 03/19/18 17:26 Bedside Glucose 224 mg/dl 52 mg/dl 66 mg/dl 71 mg/dl Test 03/19/18 20:37 03/20/18 05:42 03/20/18 07:29 Bedside Glucose 224 mg/dl 178 mg/dl White Blood Count 9.86 K/uL Red Blood Count 4.79 M/uL Hemoglobin 13.0 g/dL Hematocrit 38.4 % Mean Corpuscular Volume 80.2 fL Mean Corpuscular Hemoglobin 27.1 pg Mean Corpuscular Hemoglobin Concent 33.9 g/dl Platelet Count 92 K/uL Mean Platelet Volume 10.2 fL Neutrophils (%) (Auto) 78.3 % Lymphocytes (%) (Auto) 7.3 % Monocytes (%) (Auto) 11.5 % Eosinophils (%) (Auto) 2.4 % Basophils (%) (Auto) 0.1 % Neutrophils # (Auto) 7.72 K/uL Lymphocytes # (Auto) 0.72 K/uL Monocytes # (Auto) 1.13 K/uL Eosinophils # (Auto) 0.24 K/uL Basophils # (Auto) 0.01 K/uL RDW Standard Deviation 47.5 fL RDW Coefficient of Variation 16.7 % Immature Granulocyte % (Auto) 0.4 % Immature Granulocyte # (Auto) 0.04 K/uL Sodium Level 130 mmol/L Potassium Level 4.0 mmol/L Chloride Level 94 mmol/L Carbon Dioxide Level 31 mmol/L Anion Gap 5.0 mmol/L Blood Urea Nitrogen 32 mg/dl Creatinine 1.73 mg/dl Est Creatinine Clear Calc Drug Dose 42.8 ml/min Estimated GFR () 46.3 Estimated GFR (Non- 40.0 BUN/Creatinine Ratio 18.7 Random Glucose 158 mg/dl Calcium Level 7.8 mg/dl
--- NOTE | 2018-03-20 12:41 | Discharge Summary ---
Discharge Summary Date of Service March 20, 2018. Discharge Summary Admission Date: Mar 18, 2018 at 03:55 Discharge Date: March 20, 2018 Discharge Disposition: Rehab Principal Diagnosis: Generalized weakness and LE edema Problems/Secondary Diagnoses: (1) CHF (congestive heart failure) Status: Chronic Chronic mixed diastolic/systolic dysfunction mild hyponatremia PAF CKD Stage 3 DMII Immunizations: Have You Had Influenza Vaccine: No History of Tetanus Vaccine?: No History of Pneumococcal: No History of Hepatitis B Vaccine: No Procedures: BILATERAL LOWER EXTREMITY VENOUS DOPPLER HISTORY: Acute edema of the bilateral lower extremities BLE edema COMPARISON STUDY: CT chest 03/05/2018 FINDINGS: There is normal compressibility and augmentation within the bilateral lower extremity deep venous systems. Pulsatile flow is noted within the deep venous structures, suggesting elevated right heart pressures. Evaluation of the calf vessels is limited secondary to subcutaneous edema. IMPRESSION: No sonographic evidence of deep venous thrombosis within the right or left lower extremity. CHEST ONE VIEW PORTABLE CLINICAL HISTORY: Weakness. Congestive heart failure. COMPARISON STUDY: Chest CT March 05, 2018 and chest radiograph March 15, 2018. FINDINGS: Median sternotomy wires are noted. There is cardiomegaly. Pulmonary edema has slightly increased. Note is made of bilateral large left and small right pleural effusions which are similar to prior exam. There are persistent bibasilar opacities. IMPRESSION: 1. No significant change in moderate to large left and small right pleural effusions with associated bibasilar opacities. 2. Slight increase in pulmonary edema. Consultations: Cardiology Medication Reconciliation New Medications: Losartan Potassium (Losartan Potassium) 25 Mg Tab 12.5 MG PO DAILY for 30 Days, TAB Metoprolol Succinate (Metoprolol Succinate ER) 25 Mg Tabcr 37.5 MG PO BID for 30 Days Torsemide (Torsemide) 20 Mg Tab 20 MG PO BID for 30 Days, #60 TAB Continued Medications: Ascorbic Acid (Ascorbic Acid) 1,000 Mg Tab 1000 MG PO BID B-Complex Vitamins (Vitamin B Complex) 1 Tab Tab 1 TAB PO QAM Coenzyme Q10 (Ubidecarenone) (Co Q 10) 100 Mg Cap 200 MG PO DAILY Ferrous Sulfate (Ferrous Sulfate) 325 Mg Tab 325 MG PO TID alternate every other day Insulin Glargine (Lantus Solostar) 100 Unit/Ml Inj 12 UNITS SC QPM, PEN Isosorbide Mononitrate (Isosorbide Mononitrate ER) 30 Mg Tabcr 30 MG PO QAM Lorazepam (Ativan) 1 Mg Tab 1 MG PO HS, TAB Magnesium (Magnesium 250 mg) 1 Tab Tab 250 MG PO DAILY Metformin Hcl (Glucophage) 500 Mg Tab 500 MG PO BID, TAB Methimazole (Methimazole) 10 Mg Tab 10 MG PO DAILY Nitroglycerin (Nitrostat) 0.4 Mg Sub 0.4 MG UT UD PRN for Chest Pain, BTL PLACE ONE TABLET UNDER THE TONGUE EVERY 5 MINUTES FOR UP TO 3 DOSES OVER 15 MINUTES IF NEEDED FOR CHEST PAIN Ondansetron (Ondansetron HCl) 4 Mg Tab 4 MG PO Q4H PRN for Nausea or Vomiting Pantoprazole (Protonix) 20 Mg Tab 40 MG PO BID, TAB Spironolactone (Aldactone) 25 Mg Tab 25 MG PO QAM, TAB Trazodone Hcl (Trazodone) 50 Mg Tab 25-50 MG PO HS, TAB Discontinued Medications: Losartan Potassium (Cozaar) 25 Mg Tab 25 MG PO DAILY, TAB Metoprolol Tartrate (Lopressor) (Lopressor) 50 Mg Tab 25 MG PO BID, TAB Do not take if systolic blood pressure less than 105 or heart rate less than 60 Torsemide (Demadex) 20 Mg Tab 20 MG PO QAM, TAB Discharge Exam Review of Systems: Constitutional: + weakness (improved), No fever Respiratory: No shortness of breath Cardiovascular: No chest pain Abdomen: No pain, No nausea, No vomiting Musculoskeletal: + problem reported (LE edema - stable/improving) Genitourinary - Male: No dysuria Physical Exam: General Appearance: no apparent distress Eyes: normal inspection Neck: supple Respiratory/Chest: lungs clear, + decreased breath sounds (dimished BS L mid and basilar posterior lung santana) Cardiovascular: regular rate, rhythm, no murmur Abdomen / GI: normal bowel sounds, non tender, soft Extremities: no calf tenderness, + swelling (3+ b/l LE edema) Neurologic/Psychiatric: alert Hospital Course 68 y/o M with PMHx of Mixed Systolic/Diastolic CHF, Esophageal Stenosis, Esophageal Ulcers, T2DM, Paroxysmal Atrial Fibrillation, CKD Stage III, and Hyperthyroidism who presented with progressive ambulatory dysfunction and weakness x 4 weeks; discharged to rehab with improving volume status. Generalized Weakness, Ambulatory Dysfunction - likely multifactorial, CHF vs. malnutrition - no focal neurological weakness, H/H wnl - PT, OT recommended rehab --> [facility] LE edema - likely multifactoral (chronic mixed diastolic/systolic CHF vs. chronic venous insufficiency vs. ischemic cardiomyopathy vs. MV regurg vs. malnutrition) - chest clear, with diminished breath sounds on the L; 3+ LE edema - CXR: increased pulm edema, moderate L and small R pleural effusion w/t bibasilar opacities (compared to chest Ct on 03/05) - Echo 11/2017: EF 30%, grade 2 diastolic dysf; large inferior, posterior, and septal MIs with severe hypokinesis to akinesis of the segments. - Received Lasix 40mg IV x 1 - Continued Spironolactone 25mg QAM - Cardiology consulted - increased Torsamide 20mg to BID - discharged with - changed metoprolol 25mg BID to succinate from tartrate and increased to 37.5mg BID (discharged with) - reduced losartan from 25mg to 12.5mg daily (discharged with) Mild hyponatremia - appears chronic, unlikely to be contributor to current complaints of weakness - ddx: Diuretic induced vs fluid overload CHF vs CKD - recommended repeat BMP in 2-3 days at [facility] Paroxysmal Atrial Fibrillation/HTN - Continued home Losartan, Imdur, and Lopressor (see above for doses) CKD Stage III - Cr at baseline, 1.4 - Recommended repeat BMP in 2-3 days at [facility] Hyperthyroidism: - Continued methimazole 10mg daily DM II - Held metformin during admission (discharged with) - Received ISS DVT Prophylaxis: SCDs (pt refused heparin due to esophageal ulcers perhaps related to bleeding in the past) Code: FULL PT/OT: recommended inpt rehah to [facility] Resident Physician Supervision Note: I interviewed and examined the patient. Discussed with Dr. Ramos and agree with findings and plan as documented in the note. Any exceptions or clarifications are listed here: None Documented By: Mike Ramirez feeling weak. otherwise OK. ready for rehab vitals noted nad breathing unlabored no pallor or icterus weakness - likely multifactorial - see above chronic systolic CHF w L effusion - continue gentle diuresis as outpt. follow weights and BMP periodically; if MCCOLLUM were to become dominant as he progresses w rehab, then may need to consider thoracentesis, but unlikely to be necesssary and clearly not necessary currently. repeat CXR periodically hyperthyroid - TSH just slightly low - continue methimazole, f/u TSH ~4wks stable for rehab Total Time Spent: Less than 30 minutes This includes examination of the patient, discharge planning, medication reconciliation, and communication with other providers. Discharge Instructions Please refer to the electronic Patient Visit Report (Discharge Instructions) for additional information. Additional Copies To Shae Moore M.D.; [facility]
[2018-03-20] MEDS ORDERED: CZR25 PO (12:47)
[2018-03-20] MEDS ORDERED: DMD20 PO (12:47)
[2018-03-20] MEDS ORDERED: TPRSR25 PO (12:47)
--- NOTE | 2018-03-20 12:53 | Discharge Instructions ---
Discharge Instructions Date of Service March 20, 2018. Admission Reason for Admission: Ambulatory Dysfunction, Encounter For Rehab Eval Discharge Discharge Diagnosis / Problem: generalized weakness and LE edema Discharge Goals Goal(s): Decrease discomfort, Diagnostic testing, Therapeutic intervention Activity Recommendations Activity Limitations: resume your previous activity . Instructions / Follow-Up Instructions / Follow-Up 68 y/o M with PMHx of Mixed Systolic/Diastolic CHF, Esophageal Stenosis, Esophageal Ulcers, T2DM, Paroxysmal Atrial Fibrillation, CKD Stage III, and Hyperthyroidism who presented with progressive ambulatory dysfunction and weakness x 4 weeks; pending placement in rehab facility with improving volume status. Generalized Weakness, Ambulatory Dysfunction - PT, OT - Rehab [facility] LE edema - likely multifactoral (chronic mixed diastolic/systolic CHF vs. chronic venous insufficiency vs. ischemic cardiomyopathy vs. MV regurg vs. malnutrition) - Continue Spironolactone 25mg QAM - Continue Torsamide 20mg to BID Mild hyponatremia - appears chronic - Check BMP in 2-3 days Paroxysmal Atrial Fibrillation - Continue Losartan 12.5mg daily - Continue Imdur 30mg QAM - Continue Metoprolol succinate 37.5 mg BID KD Stage III - Cr at baseline, 1.4 - Check BMP in 2-3 days Hyperthyroidism: - Continue methimazole 10mg daily DM II - Continue home metformin and insulin regimen Current Hospital Diet Patient's current hospital diet: AHA Diet (Heart Healthy), Low Sodium Diet (2gm Na) Discharge Diet Recommended Diet: Diabetes Type 2 Diet Pending Studies Studies pending at discharge: no Laboratory Results Hemoglobin A1c Test 01/16/18 14:25 Range/Units Estimated Average Glucose 206 mg/dl Hemoglobin A1c 8.8 H 4.5-5.6 % Lipid Panel Test 01/28/18 07:00 Range/Units Triglycerides Level 62 0-150 mg/dl Cholesterol Level 162 0-200 mg/dl HDL Cholesterol 46 mg/dl Cholesterol/HDL Ratio 3.5 LDL Cholesterol, Calculated 104 mg/dl Medical Emergencies . Who to Call and When: Medical Emergencies: If at any time you feel your situation is an emergency, please call 911 immediately. . Non-Emergent Contact Non-Emergency issues call your: Primary Care Provider Call Non-Emergent contact if: temperature is above 101, your pain is worsening . . "Provider Documentation" section prepared by Enid Ramos. .
[2018-03-20 13:37] VITALS: BP 102/67; PULSE 98; TEMP 36.5; O2SAT 95
[2018-03-20] MEDS ORDERED: METOPROLOL SUCC 25MG EXT REL TAB PO SCH (20:00)
[2018-03-21] MEDS ORDERED: LOSARTAN POTASSIUM 25 MG TAB PO SCH (08:00)
== END 2018-03-20 14:00 ==
LOC: C.EDB 22:03 → EDBD 22:03 → C.4E 03-18 03:55 → ENRESERV 03-18 04:21
PROVIDERS: ADMIT Internal Medicine; ATTEND Family Medicine
DX: R26.9 Unspecified abnormalities of gait and mobility (principal); E46 Unspecified protein-calorie malnutrition; R53.1 Weakness; R60.9 Edema, unspecified; I25.5 Ischemic cardiomyopathy; I50.42 Chronic combined systolic (congestive) and diastolic (congestive) heart failure; N18.3 Chronic kidney disease, stage 3 (moderate); K22.2 Esophageal obstruction; K22.10 Ulcer of esophagus without bleeding; E11.9 Type 2 diabetes mellitus without complications; I48.0 Paroxysmal atrial fibrillation; E05.90 Thyrotoxicosis, unspecified without thyrotoxic crisis or storm; E87.1 Hypo-osmolality and hyponatremia; E78.5 Hyperlipidemia, unspecified; I44.7 Left bundle-branch block, unspecified; I25.2 Old myocardial infarction; Z95.1 Presence of aortocoronary bypass graft; Z87.01 Personal history of pneumonia (recurrent); Z87.891 Personal history of nicotine dependence; Z88.0 Allergy status to penicillin; Z91.041 Radiographic dye allergy status; Z79.4 Long term (current) use of insulin; Z83.3 Family history of diabetes mellitus; Z82.49 Family history of ischemic heart disease and other diseases of the circulatory system